=== PATIENT | male | born 1940 | race American Indian/Alaskan Native ===

== ENCOUNTER 2016-07-30 23:19 | Inpatient (IN) | payer MEDICARE ==
[2016-07-30] MEDS ORDERED: ZEMURON IV ONE (23:33)
[2016-07-30] MEDS ORDERED: XYLOCAINE CARDIAC IV ONE (23:33)
[2016-07-30] MEDS ORDERED: AMIDATE IV ONE (23:33)
[2016-07-30] MEDS ORDERED: ARTIFICIAL TEARS OPHTH OINT OU PRN (23:34)
[2016-07-30] MEDS ORDERED: VASELINE LIP THERAPY TP PRN (23:34)
[2016-07-30] MEDS ORDERED: NACL 0.9% 500 ML IV SCH (23:45)
[2016-07-30] MEDS ORDERED: ATIVAN 100 MG in NACL 0.9% 50 ML, VIAFLEX EMPTY CONTAINER 0 ML IV SCH (23:45)
--- NOTE | 2016-07-30 23:54 | Emergency Department Report ---
ED Altered Mental Status HPI - General Chief Complaint: Altered Mental Status Stated Complaint: AMS Time Seen by Provider: 07/30/16 23:31 Source: EMS, old records reviewed (none) Mode of arrival: Stretcher Limitations: Other - History of Present Illness Initial Comments: 76-year-old male with a past medical history diabetes and hypertension presents to the hospital via EMS for altered mental status. Son left for [place] this morning. We spoke to patient on the phone about 1:00 patient complained of not feeling well. Patient returned home tonight found patient lying on the floor, altered, incontinent of urine, and noted abnormal breathing. EMS reports were saturation and 90s and Accu-Chek in the 60s. Patient received 1 amp of D50 prior to arrival. Altered with intermittent periods of apnea, no response to pain, and no spontaneous movement. Decision made to intubate patient upon arrival - Related Data Allergies Allergy/AdvReac Type Severity Reaction Status Date / Time No Known Allergies Allergy Unverified 07/31/16 01:42 ED Review of Systems ROS: Stated complaint: AMS Other details as noted in HPI Comment: Unobtainable due to pts medical conditions (altered) ED Past Medical Hx - Past Medical History Previous Medical History?: Yes Hx Hypertension: Yes Hx Diabetes: Yes - Surgical History Past Surgical History?: No - Social History Smoking Status: Unknown if ever smoked ED Physical Exam - General Limitations: Other - Other Other exam information: General: No limitations Head exam: Atraumatic, normocephalic Eyes exam: Normal appearance, pupils equal reactive to light. Patient is able to look to the right and left spontaneously. nystagmus noted with left gaze ENT: Moist mucous membrane, normal oropharynx Neck exam: Normal inspection, full range of motion Respiratory exam: Clear to auscultation bilateral, no wheezes, rales, crackles Cardiovascular: Normal rate and rhythm Abdomen: Soft, nondistended, and nontender Extremity: Full range of motion normal inspection no deformity Back: Normal Inspection, full range of motion, no tenderness Neurologic: Alert, gcs E 1, V 1, M 4 total 6. Patient does have some intermittent flexion spasm movements of right lower extremity. Psychiatric: normal affect, normal mood Skin: Warm, dry, intact ED Course Vital Signs 07/30/16 07/30/16 23:31 23:34 Pulse Rate 101 H 73 Respiratory 18 Rate Blood Pressure 111/67 149/68 O2 Sat by Pulse 100 95 Oximetry - Reevaluation(s) Reevaluation #1: 07/31/16 01:39 vitals remain stable after intubation - ABG Interpretation Ph: 7.47 PCO2: 37.8 PO2: 291 Bicarbonate: 27 Interpretation: normal Additional Comments: intubated vent settings assist control, tidal volume 500, FiO2 85%, rate 16, PEEP 5 - Intubation Time Out Performed: Yes Sedative: Etomidate Mg Given: 20 Paralytic: Rocuronium Mg Given: 100 Laryngoscope: Payam Size: 3 ET Tube Size: 7.5 Other Airway Intervention: pretreatment with lidocaine for neuro intubation Tube Secured Depth (cm): 23 Tube Secured Location: lips Tube Placement Confirmation: visualized tube passing t, equal breath sounds bilat, no breath sounds over epi, confirmation by capnometr Patient Tolerated Procedure: well Intubation Complications: none - Lab Data Result diagrams: 07/31/16 00:13 07/31/16 00:13 Lab Results 07/30/16 07/30/16 07/31/16 Range/Units 23:40 23:48 00:02 WBC (4.5-11.0) K/mm3 RBC (3.65-5.03) M/mm3 Hgb (11.8-15.2) gm/dl Hct (35.5-45.6) % MCV (84-94) fl MCH (28-32) pg MCHC (32-34) % RDW (13.2-15.2) % Plt Count (140-440) K/mm3 Lymph % (Auto) (13.4-35.0) % [place] % (Auto) (0.0-7.3) % Eos % (Auto) (0.0-4.3) % Baso % (Auto) (0.0-1.8) % Lymph # (1.2-5.4) K/mm3 [place] # (0.0-0.8) K/mm3 Eos # (0.0-0.4) K/mm3 Baso # (0.0-0.1) K/mm3 Seg Neutrophils % (40.0-70.0) % Seg Neutrophils # (1.8-7.7) K/mm3 PT (12.2-14.9) Sec. INR (0.87-1.13) APTT (24.2-36.6) Sec. POC ABG pH (7.35-7.45) POC ABG pCO2 (35-45) POC ABG pO2 (80-105) POC ABG HCO3 POC ABG Total CO2 POC ABG O2 Sat POC ABG Base Excess VBG pH (7.320-7.420) FiO2 % Sodium (137-145) mmol/L Potassium (3.6-5.0) mmol/L Chloride (98-107) mmol/L Carbon Dioxide (22-30) mmol/L Anion Gap mmol/L BUN (9-20) mg/dL Creatinine (0.8-1.5) mg/dL Estimated GFR ml/min BUN/Creatinine Ratio % Glucose (75-100) mg/dL POC Glucose 202 H (70-105) Lactic Acid (0.7-2.0) mmol/L Calcium (8.4-10.2) mg/dL Total Bilirubin (0.1-1.2) mg/dL AST (5-40) units/L ALT (7-56) units/L Alkaline Phosphatase (35-129) units/L Ammonia (25-60) umol/L Total Creatine Kinase (55-170) units/L CK-MB (CK-2) (0.0-4.0) ng/mL CK-MB (CK-2) Rel Index (0-4) Troponin T (0.00-0.029) ng/mL Total Protein (6.3-8.2) g/dL Albumin (3.9-5) g/dL Albumin/Globulin Ratio % Salicylates < 0.3 L (2.8-20.0) mg/dL Acetaminophen (10.0-30.0) ug/mL Blood Type O POSITIVE MARK Antibody Screen Negative 07/31/16 07/31/16 07/31/16 Range/Units 00:02 00:13 00:13 WBC 13.3 H (4.5-11.0) K/mm3 RBC 4.45 (3.65-5.03) M/mm3 Hgb 11.2 L (11.8-15.2) gm/dl Hct 35.7 (35.5-45.6) % MCV 80 L (84-94) fl MCH 25 L (28-32) pg MCHC 31 L (32-34) % RDW 18.6 H (13.2-15.2) % Plt Count 177 (140-440) K/mm3 Lymph % (Auto) 8.7 L (13.4-35.0) % [place] % (Auto) 5.8 (0.0-7.3) % Eos % (Auto) 0.1 (0.0-4.3) % Baso % (Auto) 0.2 (0.0-1.8) % Lymph # 1.2 (1.2-5.4) K/mm3 [place] # 0.8 (0.0-0.8) K/mm3 Eos # 0.0 (0.0-0.4) K/mm3 Baso # 0.0 (0.0-0.1) K/mm3 Seg Neutrophils % 85.2 H (40.0-70.0) % Seg Neutrophils # 11.3 H (1.8-7.7) K/mm3 PT 15.8 H (12.2-14.9) Sec. INR 1.20 H (0.87-1.13) APTT 36.1 (24.2-36.6) Sec. POC ABG pH (7.35-7.45) POC ABG pCO2 (35-45) POC ABG pO2 (80-105) POC ABG HCO3 POC ABG Total CO2 POC ABG O2 Sat POC ABG Base Excess VBG pH (7.320-7.420) FiO2 % Sodium (137-145) mmol/L Potassium (3.6-5.0) mmol/L Chloride (98-107) mmol/L Carbon Dioxide (22-30) mmol/L Anion Gap mmol/L BUN (9-20) mg/dL Creatinine (0.8-1.5) mg/dL Estimated GFR ml/min BUN/Creatinine Ratio % Glucose (75-100) mg/dL POC Glucose (70-105) Lactic Acid (0.7-2.0) mmol/L Calcium (8.4-10.2) mg/dL Total Bilirubin (0.1-1.2) mg/dL AST (5-40) units/L ALT (7-56) units/L Alkaline Phosphatase (35-129) units/L Ammonia (25-60) umol/L Total Creatine Kinase (55-170) units/L CK-MB (CK-2) (0.0-4.0) ng/mL CK-MB (CK-2) Rel Index (0-4) Troponin T (0.00-0.029) ng/mL Total Protein (6.3-8.2) g/dL Albumin (3.9-5) g/dL Albumin/Globulin Ratio % Salicylates (2.8-20.0) mg/dL Acetaminophen < 15.0 (10.0-30.0) ug/mL Blood Type MARK Antibody Screen 07/31/16 07/31/16 07/31/16 Range/Units 00:13 00:13 00:13 WBC (4.5-11.0) K/mm3 RBC (3.65-5.03) M/mm3 Hgb (11.8-15.2) gm/dl Hct (35.5-45.6) % MCV (84-94) fl MCH (28-32) pg MCHC (32-34) % RDW (13.2-15.2) % Plt Count (140-440) K/mm3 Lymph % (Auto) (13.4-35.0) % [place] % (Auto) (0.0-7.3) % Eos % (Auto) (0.0-4.3) % Baso % (Auto) (0.0-1.8) % Lymph # (1.2-5.4) K/mm3 [place] # (0.0-0.8) K/mm3 Eos # (0.0-0.4) K/mm3 Baso # (0.0-0.1) K/mm3 Seg Neutrophils % (40.0-70.0) % Seg Neutrophils # (1.8-7.7) K/mm3 PT (12.2-14.9) Sec. INR (0.87-1.13) APTT (24.2-36.6) Sec. POC ABG pH (7.35-7.45) POC ABG pCO2 (35-45) POC ABG pO2 (80-105) POC ABG HCO3 POC ABG Total CO2 POC ABG O2 Sat POC ABG Base Excess VBG pH (7.320-7.420) FiO2 % Sodium 134 L (137-145) mmol/L Potassium 4.6 (3.6-5.0) mmol/L Chloride 96.7 L (98-107) mmol/L Carbon Dioxide 21 L (22-30) mmol/L Anion Gap 21 mmol/L BUN 19 (9-20) mg/dL Creatinine 0.7 L (0.8-1.5) mg/dL Estimated GFR > 60 ml/min BUN/Creatinine Ratio 27.14 % Glucose 162 H (75-100) mg/dL POC Glucose (70-105) Lactic Acid 1.00 (0.7-2.0) mmol/L Calcium 8.3 L (8.4-10.2) mg/dL Total Bilirubin 0.40 (0.1-1.2) mg/dL AST 102 H (5-40) units/L ALT 62 H (7-56) units/L Alkaline Phosphatase 1020 H (35-129) units/L Ammonia 49.0 (25-60) umol/L Total Creatine Kinase 490 H (55-170) units/L CK-MB (CK-2) 4.2 H (0.0-4.0) ng/mL CK-MB (CK-2) Rel Index 0.8 (0-4) Troponin T < 0.010 (0.00-0.029) ng/mL Total Protein 6.9 (6.3-8.2) g/dL Albumin 2.9 L (3.9-5) g/dL Albumin/Globulin Ratio 0.7 % Salicylates (2.8-20.0) mg/dL Acetaminophen (10.0-30.0) ug/mL Blood Type MARK Antibody Screen 07/31/16 07/31/16 Range/Units 00:13 00:13 WBC (4.5-11.0) K/mm3 RBC (3.65-5.03) M/mm3 Hgb (11.8-15.2) gm/dl Hct (35.5-45.6) % MCV (84-94) fl MCH (28-32) pg MCHC (32-34) % RDW (13.2-15.2) % Plt Count (140-440) K/mm3 Lymph % (Auto) (13.4-35.0) % [place] % (Auto) (0.0-7.3) % Eos % (Auto) (0.0-4.3) % Baso % (Auto) (0.0-1.8) % Lymph # (1.2-5.4) K/mm3 [place] # (0.0-0.8) K/mm3 Eos # (0.0-0.4) K/mm3 Baso # (0.0-0.1) K/mm3 Seg Neutrophils % (40.0-70.0) % Seg Neutrophils # (1.8-7.7) K/mm3 PT (12.2-14.9) Sec. INR (0.87-1.13) APTT (24.2-36.6) Sec. POC ABG pH 7.471 H (7.35-7.45) POC ABG pCO2 37.8 (35-45) POC ABG pO2 291 H (80-105) POC ABG HCO3 27.6 POC ABG Total CO2 29 POC ABG O2 Sat 100 POC ABG Base Excess 4 VBG pH 7.447 H (7.320-7.420) FiO2 85 % Sodium (137-145) mmol/L Potassium (3.6-5.0) mmol/L Chloride (98-107) mmol/L Carbon Dioxide (22-30) mmol/L Anion Gap mmol/L BUN (9-20) mg/dL Creatinine (0.8-1.5) mg/dL Estimated GFR ml/min BUN/Creatinine Ratio % Glucose (75-100) mg/dL POC Glucose (70-105) Lactic Acid (0.7-2.0) mmol/L Calcium (8.4-10.2) mg/dL Total Bilirubin (0.1-1.2) mg/dL AST (5-40) units/L ALT (7-56) units/L Alkaline Phosphatase (35-129) units/L Ammonia (25-60) umol/L Total Creatine Kinase (55-170) units/L CK-MB (CK-2) (0.0-4.0) ng/mL CK-MB (CK-2) Rel Index (0-4) Troponin T (0.00-0.029) ng/mL Total Protein (6.3-8.2) g/dL Albumin (3.9-5) g/dL Albumin/Globulin Ratio % Salicylates (2.8-20.0) mg/dL Acetaminophen (10.0-30.0) ug/mL Blood Type MARK Antibody Screen - EKG Data -: EKG Interpreted by Me (nsr rate 69, Pac's) When compared to previous EKG there are: previous EKG unavailable - Radiology Data Radiology results: report reviewed, image reviewed (chest x-ray: Appropriate ET tube position no infiltrate) CT head: No acute findings. Chronic sinus disease CT cervical spine: Lucency in fragmentation in the right C3 transverse process that appears to be old. No evidence of acute injury - Medical Decision Making Because the patient's alteration mental status is unknown. Patient had mild hypoglycemia but no improvement in mental status with increase in glucose. It is possible the patient had a seizure and presented post ictal given incontinence however, no previous reported history of seizures. Patient intubated for airway protection given significant alteration in mental status. Patient requires hospitalization for further treatment. Labs reveal significant elevated alkaline phosphatase, mild LFT elevation, evidence of a mild lab abnormalities. Delay in obtaining urine since patient apparently has resistance prostate with catheterization. - Differential Diagnosis seizure, ICH, mi, encephalopathy, drug overdose, stroke Critical Care Time: No Critical care attestation.: If time is entered above; I have spent that time in minutes in the direct care of this critically ill patient, excluding procedure time. ED Disposition Clinical Impression: Altered mental status, Endotracheally intubated, Elevated alkaline phosphatase level, Elevated LFTs, Hypoglycemia Disposition: OP ADMIT IP TO THIS HOSP Is pt being admited?: Yes Condition: Stable Time of Disposition: 01:42 (Dr Feng/hosp)
[2016-07-31 00:20] LABS: ISTAT Base Excess 4; ISTAT HCO3 27.6; ISTAT PCO2 37.8 (35-45); ISTAT PH 7.471 (7.35-7.45); ISTAT PO2 291 (80-105); ISTAT SO2 100; ISTAT TCO2 29
[2016-07-31] MEDS ORDERED: XYLOCAINE CARDIAC IV ONE (00:24)
[2016-07-31] MEDS ORDERED: AMIDATE IV ONE (00:24)
[2016-07-31] MEDS ORDERED: ZEMURON IV ONE (00:24)
[2016-07-31 00:38] LABS: Basophils % (Auto) 0.2 % (0.0-1.8); Eosinophils % (Auto) 0.1 % (0.0-4.3); Hematocrit 35.7 % (35.5-45.6); Hemoglobin 11.2 gm/dl (11.8-15.2); Mean Corpuscular HGB Conc 31 % (32-34); Mean Corpuscular Volume 80 fl (84-94); Platelet Count 177 K/mm3 (140-440); Red Blood Count 4.45 M/mm3 (3.65-5.03); Red Cell Distribution Width 18.6 % (13.2-15.2); White Blood Count 13.3 K/mm3 (4.5-11.0)
[2016-07-31 00:40] LABS: Mean Corpuscular Hemoglobin 25 pg (28-32)
[2016-07-31 00:48] LABS: Creatine Kinase MB 4.2 ng/mL (0.0-4.0)
[2016-07-31 00:50] LABS: Alanine Aminotransferase 62 units/L (7-56); Albumin 2.9 g/dL (3.9-5); Albumin/Globulin Ratio 0.7 %; Alkaline Phosphatase 1020 units/L (35-129); Anion Gap 21 mmol/L; BUN/Creatinine Ratio 27.14; Blood Urea Nitrogen 19 mg/dL (9-20); Calcium 8.3 mg/dL (8.4-10.2); Carbon Dioxide 21 mmol/L (22-30); Chloride 96.7 mmol/L (98-107); Creatine Kinase 490 units/L (55-170); Glucose 162 mg/dL (75-100); Potassium 4.6 mmol/L (3.6-5.0); Sodium 134 mmol/L (137-145); Total Protein 6.9 g/dL (6.3-8.2)
--- NOTE | 2016-07-31 01:24 | Cat Scan Report ---
FINAL REPORT EXAM: CT CERVICAL SPINE WO CON HISTORY: ams, fall TECHNIQUE: Helical axial CT imaging of the cervical spine. Images are reconstructed in the sagittal and coronal planes. PRIORS: None. FINDINGS: There is lucency and fragmentation of the right C3 transverse process that appears to have corticated, sclerotic margins and probably represents an old injury. The vertebral bodies are normal in height. There is no evidence of fracture or subluxation. There is multilevel degenerative disc and facet disease. There is atherosclerotic calcification in the carotid bulbs. The paraspinous soft tissues are unremarkable. There is an endotracheal tube in place. IMPRESSION: Lucency in fragmentation of the right C3 transverse process that appears to be old. Clinical correlation required. No evidence of acute injury.
--- NOTE | 2016-07-31 01:27 | Cat Scan Report ---
FINAL REPORT EXAM: CT HEAD/BRAIN WO CON HISTORY: ams TECHNIQUE: CT was performed from the foramen magnum through the vertex in the axial plane without the use of intravenous contrast. PRIORS: None. FINDINGS: The king/white matter attenuation pattern is normal. There is no mass lesion or mass effect. There are no abnormal extra-axial fluid collections. There is no evidence of acute intracranial hemorrhage or infarct. The ventricles are of normal size and configuration. The skull and orbits are unremarkable. There is mucosal thickening in the left frontal sinus, bilateral maxillary sinuses, right sphenoid sinus and ethmoid air cells. IMPRESSION: No evidence of acute intracranial hemorrhage or infarct Chronic sinus disease
[2016-07-31 01:28] LABS: INR 1.2 (0.87-1.13)
[2016-07-31 01:29] LABS: Partial Thromboplastin Time 36.1 Sec. (24.2-36.6)
[2016-07-31] MEDS ORDERED: ZOFRAN IV PRN (02:27)
[2016-07-31] MEDS ORDERED: TYLENOL PO PRN (02:27)
[2016-07-31] MEDS ORDERED: TYLENOL PR PRN (02:27)
--- NOTE | 2016-07-31 02:30 | History and Physical Report ---
History of Present Illness Date of examination: 07/31/16 History of present illness: 76-year-old man with a history of hypertension, diabetes, hyperlipidemia, BPH, ? CHF (based on medications) was brought to the emergency room because son found him on the floor decreased responsiveness. Son stated that the patient went to [place] this morning and left because he wasn't feeling well. At 1 PM he he was at home, the patient did not elaborate, what exactly was bothering him. Patient was intubated in the emergency room. Review of system is unobtainable PAST SURGICAL HISTORY: None SOCIAL HISTORY: Denies alcohol, tobacco, drugs FAMILY HISTORY: Hypertension Medications and Allergies Allergies Allergy/AdvReac Type Severity Reaction Status Date / Time No Known Allergies Allergy Verified 07/31/16 02:37 Home Medications Medication Instructions Recorded Confirmed Last Taken Type Aspirin [Aspirin BABY CHEW TAB] 1 tab PO DAILY 07/31/16 07/31/16 Unknown History Carvedilol [Coreg] 25 mg PO BID 07/31/16 07/31/16 Unknown History Hydrochlorothiazide [HCTZ] 25 mg PO QDAY 07/31/16 07/31/16 Unknown History Lisinopril [Zestril TAB] 1 tab PO DAILY 07/31/16 07/31/16 Unknown History Pravastatin (Nf) [Pravachol] 40 mg PO QHS 07/31/16 07/31/16 Unknown History Tamsulosin [Flomax] 1 cap PO DAILY 07/31/16 07/31/16 Unknown History amLODIPine [Norvasc] 10 mg PO DAILY 07/31/16 07/31/16 Unknown History hydrALAZINE [Apresoline] 25 mg PO Q8HR 07/31/16 07/31/16 Unknown History Active Meds: Active Medications Hydrophilic Ointment (Vaseline Lip Therapy) 1 applic TP Q2HR PRN PRN Reason: Dry Lips Lorazepam 100 mg/ Sodium Chloride/ Miscellaneous Information 100 mls @ 1 mls/ hr IV TITR SANIA; 1 MG/HR PRN Reason: Protocol Last Admin: 07/31/16 00:14 Dose: 1 mg/hr, 1 mls/hr Multi-Ingred Cream/Lotion/Oil/Oint (Artificial Tears Ophth Oint) 1 applic OU Q4HR PRN PRN Reason: Dry Eye(s) Sodium Chloride (Nacl 0.9% 500 Ml) 1 ml IV DIRECT SANIA Exam - Physical Exam Narrative exam: Gen. appearance: Patient lying in bed, no apparent distress, intubated HEENT: Normocephalic, atraumatic, pupils equally round , fixed, dilated and slightly reactive to light, unable to do extraocular movement , and no sclericterus,. No JVD or thyromegaly or nodule,neck supple, no carotid bruit , mucous membranes moist, no exudate or erythema Heart: S1, S2, regular rate and rhythm Lungs: Clear to auscultation bilaterally, breathing comfortable Abdomen: Positive bowel sounds,soft, nondistended, no organomegaly Extremity: No edema, cyanosis, clubbing Skin: No rash, nodules, warm, dry Neuro: sedated - Constitutional Vitals: Temp Pulse Resp BP Pulse Ox 76 16 150/69 100 07/31/16 01:45 07/31/16 01:45 07/31/16 01:45 07/31/16 01:45 Results - Labs CBC & Chem 7: 07/31/16 00:13 07/31/16 00:13 Labs: Abnormal lab results 07/30/16 07/31/16 07/31/16 Range/Units 23:48 00:02 00:13 WBC 13.3 H (4.5-11.0) K/mm3 Hgb 11.2 L (11.8-15.2) gm/dl MCV 80 L (84-94) fl MCH 25 L (28-32) pg MCHC 31 L (32-34) % RDW 18.6 H (13.2-15.2) % Lymph % (Auto) 8.7 L (13.4-35.0) % Seg Neutrophils % 85.2 H (40.0-70.0) % Seg Neutrophils # 11.3 H (1.8-7.7) K/mm3 PT (12.2-14.9) Sec. INR (0.87-1.13) POC ABG pH (7.35-7.45) POC ABG pO2 (80-105) VBG pH (7.320-7.420) Sodium (137-145) mmol/L Chloride (98-107) mmol/L Carbon Dioxide (22-30) mmol/L Creatinine (0.8-1.5) mg/dL Glucose (75-100) mg/dL POC Glucose 202 H (70-105) Calcium (8.4-10.2) mg/dL AST (5-40) units/L ALT (7-56) units/L Alkaline Phosphatase (35-129) units/L Total Creatine Kinase (55-170) units/L CK-MB (CK-2) (0.0-4.0) ng/mL Albumin (3.9-5) g/dL Salicylates < 0.3 L (2.8-20.0) mg/dL 07/31/16 07/31/16 07/31/16 Range/Units 00:13 00:13 00:13 WBC (4.5-11.0) K/mm3 Hgb (11.8-15.2) gm/dl MCV (84-94) fl MCH (28-32) pg MCHC (32-34) % RDW (13.2-15.2) % Lymph % (Auto) (13.4-35.0) % Seg Neutrophils % (40.0-70.0) % Seg Neutrophils # (1.8-7.7) K/mm3 PT 15.8 H (12.2-14.9) Sec. INR 1.20 H (0.87-1.13) POC ABG pH (7.35-7.45) POC ABG pO2 (80-105) VBG pH 7.447 H (7.320-7.420) Sodium 134 L (137-145) mmol/L Chloride 96.7 L (98-107) mmol/L Carbon Dioxide 21 L (22-30) mmol/L Creatinine 0.7 L (0.8-1.5) mg/dL Glucose 162 H (75-100) mg/dL POC Glucose (70-105) Calcium 8.3 L (8.4-10.2) mg/dL AST 102 H (5-40) units/L ALT 62 H (7-56) units/L Alkaline Phosphatase 1020 H (35-129) units/L Total Creatine Kinase 490 H (55-170) units/L CK-MB (CK-2) 4.2 H (0.0-4.0) ng/mL Albumin 2.9 L (3.9-5) g/dL Salicylates (2.8-20.0) mg/dL 07/31/16 Range/Units 00:13 WBC (4.5-11.0) K/mm3 Hgb (11.8-15.2) gm/dl MCV (84-94) fl MCH (28-32) pg MCHC (32-34) % RDW (13.2-15.2) % Lymph % (Auto) (13.4-35.0) % Seg Neutrophils % (40.0-70.0) % Seg Neutrophils # (1.8-7.7) K/mm3 PT (12.2-14.9) Sec. INR (0.87-1.13) POC ABG pH 7.471 H (7.35-7.45) POC ABG pO2 291 H (80-105) VBG pH (7.320-7.420) Sodium (137-145) mmol/L Chloride (98-107) mmol/L Carbon Dioxide (22-30) mmol/L Creatinine (0.8-1.5) mg/dL Glucose (75-100) mg/dL POC Glucose (70-105) Calcium (8.4-10.2) mg/dL AST (5-40) units/L ALT (7-56) units/L Alkaline Phosphatase (35-129) units/L Total Creatine Kinase (55-170) units/L CK-MB (CK-2) (0.0-4.0) ng/mL Albumin (3.9-5) g/dL Salicylates (2.8-20.0) mg/dL - Imaging and Cardiology EKG: image reviewed Chest x-ray: image reviewed Assessment and Plan Respiratory failure Altered mental status Elevated LFTs Hypertension Diabetes Hyperlipidemia PPH Admit to medicine Start IV fluid, check cardiac enzymes, d-dimer Obtain ultrasound of the abdomen, consult critical care Check fingersticks initiate insulin sliding scale Start DVT prophylaxis Prognosis guarded
[2016-07-31] MEDS ORDERED: D50W (25GM) IV PRN (02:52)
--- NOTE | 2016-07-31 03:30 | Ultrasound Report ---
FINAL REPORT EXAM: US ABDOMEN COMPLETE HISTORY: incr lft COMPARISON: None available. TECHNIQUE: Several real-time grayscale and color Doppler images were obtained. FINDINGS: There is increased echogenicity of the liver compatible with fatty infiltration. No biliary dilatation. The common bile duct measures 4 millimeters. Spleen measures 10.5 centimeters in length within normal limits. Visualized portions of the pancreas are unremarkable. Small shadowing gallstones at the dependent portion the gallbladder. Gallbladder wall thickness 3 millimeters within normal limits. Visualize urinary bladder is unremarkable. Right kidney measures 9.1 centimeters in length. Left kidney measures 9.5 centimeter length. No hydronephrosis. Benign right renal cyst measuring 1.6 centimeters. IMPRESSION: Cholelithiasis without secondary signs of acute inflammation or biliary dilatation. Mild diffuse fatty infiltration of the liver. Benign right renal cyst measuring 1.6 centimeters. No hydronephrosis bilaterally.
[2016-07-31] MEDS ORDERED: NACL 0.9% 1000 ML 1,000 ML IV ONE (07:01)
--- NOTE | 2016-07-31 07:24 | Admit Criteria Form ---
Admission Criteria Documentation: MENTAL STATUS CHANGE Clinical Indications for Inpatient Care (Place 'X' for any and all applicable criteria): Ongoing inpatient care may be needed for 1 or more of the following(1)(2)(3)(5)( 6): [X]I. Suspected serious etiology (eg, medical disorder, REPORT MANAGER event) of altered mental status [ ]II. Danger to self or others not manageable at lower level of care [ ]III. Grave disability (eg, inability to perform self care necessary at lower level of care) [ ]IV. Agitation or inappropriate behavior interfering with care for primary condition (eg, attempting to discontinue lines or drains prematurely, unable to cooperate with respiratory care) [ ]V. Delirium [A] [D][E] as described by 1 or more of the following(26): [ ]a) Delirium due to alcohol or sedative [F] withdrawal [ ]b) Delirium of uncertain etiology that has not responded to appropriate empiric treatment [ ]c) Delirium that prevents performance of a life-sustaining function (eg, feeding or hydrating oneself) [ ]. General contraindications and/or Inappropriate clinical situations for Observational Care in patients with Mental Status Change, when ANY ONE of the following is required: [ ]a) Prediction of prolongation of LOS based on ANY ONE of the following may be considered as a contraindication for observational care 2, 3, 4, 5, 6, 7, 8, 9, 10, 11 [ ]i) Age > 65 yrs. [ ]ii) Patient arriving by ambulance [ ]iii) Patient with high acuity [ ]iv) Patient requiring vital sign monitoring [ ]v) Patient on IV medication [ ]b) Systolic blood pressures greater than or equal to 180mmHg 3, 12 [ ]c) Patient with altered mental status including delirium and other alteration of consciousness, (3) [ ]d) Patient whose discharge disposition will be to a [facility] home or rehabilitation home should not be managed in Emergency Department Observation Unit. CMS rule requires 3 days hospital stay before such placement.3,13 [ ]e) Patient with failure to thrive due to broad array of etiologies 3,16,17 [ ]f) Inability to ambulate 3,14 Extended stay beyond goal length of stay for the primary condition may be needed until ALL of the following are present(3)(5): [ ]a) Underlying medical etiology of mental status change is absent, or has been established and adequately treated [ ]b) Danger to self or others is absent or manageable at lower level of care. [ ]c) Behavior crisis management, including physical or chemical restraints, is not required or available at lower level of car [ ]d) Substance or alcohol withdrawal is absent or manageable at lower level of care. [ ]e) Behavioral symptoms (eg, agitation, somnolence, inappropriate behavior) are absent, or are manageable at lower level of care. The original [facility] content created by [facility] [employer] has been revised. The portions of the content which have been revised are identified through the use of italic text or in bold, and [facility] has neither reviewed nor approved the modified material. All other unmodified content is copyright [facility] [employer]. Please see references footnoted in the original [facility] edition 2016 Admission Criteria Met: Yes
--- NOTE | 2016-07-31 08:16 | XRay Report ---
AP CHEST :07/30/16 23:19:00 CLINICAL: Intubated.Altered mental status. COMPARISON:02/13/18 FINDINGS: The endotracheal tube is in satisfactory position. No other tubes or lines. Normal heart and pulmonary vessels. Mild left basal subsegmental atelectasis. Lungs are otherwise clear. No pneumothorax. IMPRESSION: Satisfactory position of the endotracheal tube.No congestive heart failure or pneumonia.
--- NOTE | 2016-07-31 08:17 | XRay Report ---
AP CHEST :07/31/16 08:04 CLINICAL: Intubated.Follow up respiratory failure. COMPARISON:07/30/16 FINDINGS: The endotracheal tube is in satisfactory position. A nasogastric tube has been inserted and the tip is below the diaphragm. Bibasal subsegmental atelectasis. The lungs are otherwise clear. Normal heart and pulmonary vessels. No pneumothorax. IMPRESSION: Bibasal subsegmental atelectasis.No congestive heart failure or pneumonia.
[2016-07-31 09:37] LABS: Creatine Kinase MB 5.9 ng/mL (0.0-4.0)
[2016-07-31] MEDS ORDERED: NACL 0.9% 500 ML 500 ML IV ONE (09:45)
[2016-07-31] MEDS: NACL 0.45% 1000 ML 1,000 ML IV SCH (10:00)
[2016-07-31] MEDS ORDERED: LOVENOX SUB-Q SCH (10:00)
[2016-07-31] MEDS: LOVENOX SUB-Q SCH (11:00)
[2016-07-31] MEDS ORDERED: SODIUM BICARBONATE FEEDTUBE PRN (11:17)
[2016-07-31] MEDS ORDERED: SIMPLE SYRUP FEEDTUBE PRN ×2 (11:17)
[2016-07-31] MEDS ORDERED: PANCREAZE DR 10,500 UNIT FEEDTUBE PRN (11:17)
--- NOTE | 2016-07-31 12:14 | Consultation ---
History of Present Illness Consult date: 07/31/16 History of present illness: Called to evaluate case of a 76-year-old -N[place]ales[place] male, be due to the ICU in acute respiratory failure. The patient. Family is at the bedside so history is obtained after conversation with his son and chart review. Reportedly, the patient had gone to [place] yesterday and after that he went home. He failed to answer his son calls and he went to check on him. The patient was found face down on his bed unresponsive and EMS were called. He was rushed to the ER and after initial assessment, he was intubated to protect airway and assist with resuscitation. He has history of diabetes and his initial blood sugar was 60. He was given D50 W and was later admitted to the ICU. Called to evaluate. No recent history of respiratory tract infection, stroke, chest pain episodes. No recent history of fever or chills or influenza-like illness. Apparently no head trauma. Initial scans on record as noted below Past History Past Medical History: diabetes Medications and Allergies Allergies Allergy/AdvReac Type Severity Reaction Status Date / Time No Known Allergies Allergy Verified 07/31/16 02:37 Home Medications Medication Instructions Recorded Confirmed Last Taken Type Aspirin [Aspirin BABY CHEW TAB] 1 tab PO DAILY 07/31/16 07/31/16 Unknown History Carvedilol [Coreg] 25 mg PO BID 07/31/16 07/31/16 Unknown History Hydrochlorothiazide [HCTZ] 25 mg PO QDAY 07/31/16 07/31/16 Unknown History Lisinopril [Zestril TAB] 1 tab PO DAILY 07/31/16 07/31/16 Unknown History Pravastatin (Nf) [Pravachol] 40 mg PO QHS 07/31/16 07/31/16 Unknown History Tamsulosin [Flomax] 1 cap PO DAILY 07/31/16 07/31/16 Unknown History amLODIPine [Norvasc] 10 mg PO DAILY 07/31/16 07/31/16 Unknown History hydrALAZINE [Apresoline] 25 mg PO Q8HR 07/31/16 07/31/16 Unknown History Active Meds: Active Medications Acetaminophen (Tylenol) 650 mg PO Q4H PRN PRN Reason: Pain MILD(1-3)/Fever >100.5/MARTINEZ Acetaminophen (Tylenol) 650 mg PA Q4H PRN PRN Reason: Pain MILD(1-3)/Fever >100.5/MARTINEZ Lipase/Protease/Amylase (Pancreaze Dr 10,500 Unit) 1 each FEEDTUBE PRN PRN PRN Reason: For Clogged Feeding Tube Dextrose (D50w (25gm)) 50 ml IV PRN PRN PRN Reason: Hypoglycemia Enoxaparin Sodium (Lovenox) 40 mg SUB-Q QDAY@1000 SANIA Last Admin: 07/31/16 11:00 Dose: 40 mg Hydrophilic Ointment (Vaseline Lip Therapy) 1 applic TP Q2HR PRN PRN Reason: Dry Lips Lorazepam 100 mg/ Sodium Chloride/ Miscellaneous Information 100 mls @ 1 mls/ hr IV TITR SANIA; 1 MG/HR PRN Reason: Protocol Last Titration: 07/31/16 07:00 Dose: 0 mg/hr, 0 mls/hr Sodium Chloride (Nacl 0.45% 1000 Ml) 1,000 mls @ 75 mls/hr IV DIRECT SANIA Multi-Ingred Cream/Lotion/Oil/Oint (Artificial Tears Ophth Oint) 1 applic OU Q4HR PRN PRN Reason: Dry Eye(s) Ondansetron HCl (Zofran) 4 mg IV Q8H PRN PRN Reason: N/V unrelieved by Reglan Simple Syrup (Simple Syrup) 15 ml FEEDTUBE PRN PRN PRN Reason: Hypoglycemia Simple Syrup (Simple Syrup) 30 ml FEEDTUBE PRN PRN PRN Reason: Hypoglycemia Sodium Bicarbonate (Sodium Bicarbonate) 325 mg FEEDTUBE PRN PRN PRN Reason: For Clogged Feeding Tube Sodium Chloride (Nacl 0.9% 500 Ml) 1 ml IV DIRECT SANIA Review of Systems ROS unobtainable: due to endotracheal tube Physical Examination Vital signs: Vital Signs Pulse Ox 90 07/30/16 23:14 General appearance: no acute distress, comatose, other (intubated) Eyes: other (pupils are equal, very slowly reactive) ENT: other (he continued position at 24) Neck: supple, no JVD Ascultation: Bilateral: clear, diminished breath sounds Gastrointestinal: normoactive bowel sounds, non-distended Integumentary: normal Extremities: no cyanosis, no edema other (Limited due to intubation and recent medications. Appears to move right upper extremity slightly open pain stimulation) Results - Laboratory Findings CBC and BMP: 07/31/16 00:13 07/31/16 00:13 ABG POC ABG pH 7.471 (7.35-7.45) H 07/31/16 00:13 POC ABG pCO2 37.8 (35-45) 07/31/16 00:13 POC ABG pO2 291 (80-105) H 07/31/16 00:13 POC ABG HCO3 27.6 07/31/16 00:13 POC ABG Total CO2 29 07/31/16 00:13 POC ABG O2 Sat 100 07/31/16 00:13 PT/INR, D-dimer PT 15.8 Sec. (12.2-14.9) H 07/31/16 00:13 INR 1.20 (0.87-1.13) H 07/31/16 00:13 Abnormal lab findings: Abnormal Labs 07/31/16 08:39 Total Creatine Kinase 865 H CK-MB (CK-2) 5.9 H - Diagnostic Findings Chest x-ray: report reviewed Additional studies: C-spine and brain CT scan without contrast reports reviewed Assessment and Plan Acute respiratory failure. Shock. Noted to be hypotensive during rounds. Metabolic encephalopathy. Possibly related to blood sugar control event. Hypoxemic encephalopathy cannot be excluded at this point. History diabetes Obesity Recommendations I ordered immediate bolus of normal saline 500 mL Monitor blood pressure, and keep MAP > 60. Monitor intake and output Initiate pressors if no response after the first or second bolus Watch for fever and initiate cultures if noted Continue ventilatory support. Serial monitoring of blood sugar and avoid hypoglycemia. Goal would be initially to maintain between 150s-180 mg per DL Sliding-scale monitoring and give insulin as needed. DVT prophylaxis PUD prophylaxis Discussed with patient's son in detail. I also recommend a neurology consult. Discussed with nurse and RN to notify me if no improvement of blood pressure Critical care time was 40 minutes of [id number] evaluation and coordination of care.
--- NOTE | 2016-07-31 23:31 | Event Note ---
Date: 07/31/16 Patient evaluated Abd u/s-Cholelithiasis without acute inflammation
[2016-08-01 06:04] LABS: ISTAT Base Excess -2; ISTAT HCO3 22.6; ISTAT PCO2 33.4 (35-45); ISTAT PH 7.437 (7.35-7.45); ISTAT PO2 66 (80-105); ISTAT SO2 94; ISTAT TCO2 24
--- NOTE | 2016-08-01 07:59 | XRay Report ---
AP CHEST: HISTORY: Followup respiratory failure The endotracheal tube terminates within 1 cm of the eliceo on today's exam. It has been advanced 2-3 cm since yesterday's exam. Please correlate with the image and consider retraction. Partial atelectasis or infiltrate at the right lung base is stable. The remainder of the lungs are clear. No pleural effusion or pneumothorax. Heart size remains within normal limits. A nasogastric tube is in place. IMPRESSION: Please check the endotracheal tube. Otherwise, no change in the atelectasis/infiltrate at the right lung base.
[2016-08-01 08:33] LABS: Hematocrit 34.9 % (35.5-45.6); Hemoglobin 10.7 gm/dl (11.8-15.2); Mean Corpuscular HGB Conc 31 % (32-34); Mean Corpuscular Volume 82 fl (84-94); Red Blood Count 4.23 M/mm3 (3.65-5.03); Red Cell Distribution Width 19.1 % (13.2-15.2); White Blood Count 14.8 K/mm3 (4.5-11.0)
[2016-08-01 08:38] LABS: Mean Corpuscular Hemoglobin 25 pg (28-32)
[2016-08-01 08:40] LABS: Anion Gap 21 mmol/L; BUN/Creatinine Ratio 26.36; Blood Urea Nitrogen 29 mg/dL (9-20); Calcium 7.6 mg/dL (8.4-10.2); Carbon Dioxide 22 mmol/L (22-30); Chloride 100.8 mmol/L (98-107); Glucose 233 mg/dL (75-100); Potassium 4.7 mmol/L (3.6-5.0); Sodium 139 mmol/L (137-145)
[2016-08-01 09:25] LABS: Anisocytosis 1+; Basophils % (Manual) 0 % (0.0-1.8); Blastocytes % (Manual) 0 %; Hypochromasia 1+
[2016-08-01 09:26] LABS: Diff Status Complete; Platelet Count 172 K/mm3 (140-440); Platelet Estimate Consistent w Auto; Polychromasia Few
--- NOTE | 2016-08-01 10:18 | Progress Note ---
Assessment and Plan 76-year-old man with a history of hypertension, diabetes, hyperlipidemia, BPH, was brought to the emergency room because son found him on the floor with unresponsiveness. Patient was intubated in the emergency room. Acute Respiratory failure - on vent, pulmonary following Altered mental status/Acute encephalopathy - CT head was unremarkable on admission - neuro consult, EEG Elevated LFTs - Obtained ultrasound of the abdomen - US showed cholelithiasis without cholecystitis Hypertension - cont monitor, provide Bp meds with TF Diabetes - SSI Hyperlipidemia - hold statin for elevated LFT BPH - monitor urine output SIRS - pt has elevated white count and tachycardia - will start zosyn and obtain blood cx, cxr and UA Prognosis guarded Subjective Date of service: 08/01/16 Interval history: Pt seen and examined Discussed plan of care with pt,s son at bedside Pt intubated without ant sedation Objective - Constitutional Vitals: Vital Signs - 12hr 07/31/16 07/31/16 07/31/16 22:19 22:21 22:31 Temperature Pulse Rate 105 H 98 H 105 H Pulse Rate [ From Monitor] Respiratory 16 17 16 Rate Blood Pressure 129/61 129/61 129/61 O2 Sat by Pulse 95 95 94 Oximetry 07/31/16 07/31/16 07/31/16 22:41 22:51 23:00 Temperature Pulse Rate 108 H 105 H 104 H Pulse Rate [ From Monitor] Respiratory 16 16 16 Rate Blood Pressure 122/61 122/61 92/56 O2 Sat by Pulse 95 96 94 Oximetry 07/31/16 07/31/16 07/31/16 23:01 23:11 23:21 Temperature Pulse Rate 93 H 100 H 101 H Pulse Rate [ From Monitor] Respiratory 16 16 16 Rate Blood Pressure 102/43 102/43 102/43 O2 Sat by Pulse 96 96 96 Oximetry 07/31/16 07/31/16 07/31/16 23:30 23:41 23:51 Temperature Pulse Rate 94 H 98 H 99 H Pulse Rate [ From Monitor] Respiratory 16 16 16 Rate Blood Pressure 100/43 100/43 100/43 O2 Sat by Pulse 96 95 95 Oximetry 08/01/16 08/01/16 08/01/16 00:00 00:11 00:21 Temperature 100.2 F H Pulse Rate 96 H 91 H 97 H Pulse Rate [ 80 From Monitor] Respiratory 16 16 16 Rate Blood Pressure 107/55 107/55 107/55 O2 Sat by Pulse 95 96 95 Oximetry 08/01/16 08/01/16 08/01/16 00:30 00:41 00:51 Temperature Pulse Rate 90 97 H 124 H Pulse Rate [ From Monitor] Respiratory 16 16 17 Rate Blood Pressure 114/58 114/58 114/58 O2 Sat by Pulse 95 95 95 Oximetry 08/01/16 08/01/16 08/01/16 01:00 01:11 01:21 Temperature Pulse Rate 135 H 119 H 116 H Pulse Rate [ From Monitor] Respiratory 18 13 19 Rate Blood Pressure 127/61 127/61 127/61 O2 Sat by Pulse 93 93 93 Oximetry 08/01/16 08/01/16 08/01/16 01:30 01:41 01:51 Temperature Pulse Rate 129 H 119 H Pulse Rate [ From Monitor] Respiratory 20 20 Rate Blood Pressure 117/52 117/52 117/52 O2 Sat by Pulse 93 94 95 Oximetry 08/01/16 08/01/16 08/01/16 02:00 02:11 02:21 Temperature Pulse Rate 113 H 115 H 121 H Pulse Rate [ From Monitor] Respiratory 20 19 Rate Blood Pressure 119/64 119/64 119/64 O2 Sat by Pulse 98 95 95 Oximetry 08/01/16 08/01/16 08/01/16 02:30 02:41 02:51 Temperature Pulse Rate 109 H 110 H 108 H Pulse Rate [ From Monitor] Respiratory 19 18 16 Rate Blood Pressure 117/55 117/55 117/55 O2 Sat by Pulse 96 95 96 Oximetry 08/01/16 08/01/16 08/01/16 03:00 03:11 03:21 Temperature Pulse Rate 103 H 114 H 120 H Pulse Rate [ From Monitor] Respiratory 16 17 Rate Blood Pressure 103/51 103/51 103/51 O2 Sat by Pulse 97 96 94 Oximetry 08/01/16 08/01/16 08/01/16 03:30 03:41 03:51 Temperature Pulse Rate 102 H 109 H 107 H Pulse Rate [ From Monitor] Respiratory 17 16 16 Rate Blood Pressure 93/51 93/51 93/51 O2 Sat by Pulse 94 95 94 Oximetry 08/01/16 08/01/16 08/01/16 04:00 04:11 04:21 Temperature 100.4 F H Pulse Rate 113 H 107 H 98 H Pulse Rate [ From Monitor] Respiratory 17 17 16 Rate Blood Pressure 92/56 92/56 92/56 O2 Sat by Pulse 93 93 94 Oximetry 08/01/16 08/01/16 08/01/16 04:28 04:30 04:41 Temperature Pulse Rate 99 H 108 H 102 H Pulse Rate [ From Monitor] Respiratory 14 18 Rate Blood Pressure 103/51 109/68 109/68 O2 Sat by Pulse 96 100 91 Oximetry 08/01/16 08/01/16 08/01/16 04:51 05:00 05:11 Temperature Pulse Rate 112 H 123 H 102 H Pulse Rate [ From Monitor] Respiratory 17 18 19 Rate Blood Pressure 109/68 114/57 109/68 O2 Sat by Pulse 91 93 93 Oximetry 08/01/16 08/01/16 08/01/16 05:21 05:30 05:41 Temperature Pulse Rate 111 H 115 H 106 H Pulse Rate [ From Monitor] Respiratory 19 18 20 Rate Blood Pressure 109/68 100/52 100/52 O2 Sat by Pulse 94 95 95 Oximetry 08/01/16 08/01/16 08/01/16 05:51 06:00 06:11 Temperature Pulse Rate 119 H 121 H 110 H Pulse Rate [ From Monitor] Respiratory 20 24 18 Rate Blood Pressure 100/52 99/51 99/51 O2 Sat by Pulse 95 95 96 Oximetry 08/01/16 08/01/16 08/01/16 06:21 06:30 06:41 Temperature Pulse Rate 109 H 115 H 116 H Pulse Rate [ From Monitor] Respiratory 18 17 19 Rate Blood Pressure 99/51 97/50 97/50 O2 Sat by Pulse 96 96 96 Oximetry 08/01/16 08/01/16 08/01/16 06:51 07:00 07:11 Temperature Pulse Rate 119 H 100 H 114 H Pulse Rate [ From Monitor] Respiratory 17 19 17 Rate Blood Pressure 97/50 106/55 106/55 O2 Sat by Pulse 96 96 96 Oximetry 08/01/16 08/01/16 08/01/16 07:21 07:30 07:41 Temperature Pulse Rate 109 H 103 H 106 H Pulse Rate [ From Monitor] Respiratory 19 18 18 Rate Blood Pressure 106/55 102/49 102/49 O2 Sat by Pulse 95 95 95 Oximetry 08/01/16 08/01/16 08/01/16 07:51 08:00 08:11 Temperature 99.7 F H Pulse Rate 106 H 122 H 114 H Pulse Rate [ From Monitor] Respiratory 16 16 17 Rate Blood Pressure 102/49 118/52 118/52 O2 Sat by Pulse 95 94 95 Oximetry 08/01/16 08/01/16 08/01/16 08:20 08:30 08:41 Temperature Pulse Rate 111 H 105 H 104 H Pulse Rate [ From Monitor] Respiratory 22 17 20 Rate Blood Pressure 121/58 118/66 118/66 O2 Sat by Pulse 95 95 95 Oximetry 08/01/16 08/01/16 08:51 09:12 Temperature Pulse Rate 128 H 121 H Pulse Rate [ From Monitor] Respiratory 22 19 Rate Blood Pressure 118/66 128/59 O2 Sat by Pulse 95 96 Oximetry General appearance: Present: no acute distress, well-nourished, other (intubated , unresponsive) - EENT Eyes: no scleral icterus, no conjunctival injection ENT: dentition normal, no thrush Ears: bilateral: normal - Neck Neck: no rigidity, no enlarged thyroid, no masses or JVD - Respiratory Respiratory effort: other (on vent) Respiratory: bilateral: CTA - Breasts Breasts: normal - Cardiovascular Heart Sounds: Present: S1 & S2 (tachycardic). Absent: gallop, rub Extremities: pulses intact, No edema, normal color - Gastrointestinal General gastrointestinal: Present: soft, non-distended, normal bowel sounds - Integumentary Integumentary: clear, dry - Neurologic Neurologic: other (does not follow commend) - Labs CBC & Chem 7: 08/01/16 07:45 08/01/16 07:45 Labs: Abnormal lab results 07/31/16 07/31/16 07/31/16 Range/Units 10:07 12:07 16:19 WBC (4.5-11.0) K/mm3 Hgb (11.8-15.2) gm/dl Hct (35.5-45.6) % MCV (84-94) fl MCH (28-32) pg MCHC (32-34) % RDW (13.2-15.2) % Seg Neuts % (Manual) (40.0-70.0) % Lymphocytes % (Manual) (13.4-35.0) % Seg Neutrophils # Man (1.8-7.7) K/mm3 POC ABG pCO2 (35-45) POC ABG pO2 (80-105) BUN (9-20) mg/dL Glucose (75-100) mg/dL POC Glucose 205 H 188 H 195 H (70-105) Calcium (8.4-10.2) mg/dL 07/31/16 07/31/16 08/01/16 Range/Units 19:58 23:53 04:18 WBC (4.5-11.0) K/mm3 Hgb (11.8-15.2) gm/dl Hct (35.5-45.6) % MCV (84-94) fl MCH (28-32) pg MCHC (32-34) % RDW (13.2-15.2) % Seg Neuts % (Manual) (40.0-70.0) % Lymphocytes % (Manual) (13.4-35.0) % Seg Neutrophils # Man (1.8-7.7) K/mm3 POC ABG pCO2 (35-45) POC ABG pO2 (80-105) BUN (9-20) mg/dL Glucose (75-100) mg/dL POC Glucose 147 H 160 H 225 H (70-105) Calcium (8.4-10.2) mg/dL 08/01/16 08/01/16 08/01/16 Range/Units 04:42 07:45 07:45 WBC 14.8 H (4.5-11.0) K/mm3 Hgb 10.7 L (11.8-15.2) gm/dl Hct 34.9 L (35.5-45.6) % MCV 82 L (84-94) fl MCH 25 L (28-32) pg MCHC 31 L (32-34) % RDW 19.1 H (13.2-15.2) % Seg Neuts % (Manual) 80.0 H (40.0-70.0) % Lymphocytes % (Manual) 12.0 L (13.4-35.0) % Seg Neutrophils # Man 11.8 H (1.8-7.7) K/mm3 POC ABG pCO2 33.4 L (35-45) POC ABG pO2 66 L (80-105) BUN 29 H (9-20) mg/dL Glucose 233 H (75-100) mg/dL POC Glucose (70-105) Calcium 7.6 L (8.4-10.2) mg/dL
[2016-08-01] MEDS: PEPCID IV SCH ×2 (11:00→23:07)
[2016-08-01] MEDS: LOVENOX SUB-Q SCH (11:00)
--- NOTE | 2016-08-01 12:55 | Progress Note ---
Assessment and Plan Acute respiratory failure. Shock. Metabolic encephalopathy. Possibly related to blood sugar control event/ Hypoxemic encephalopathy History diabetes Obesity Recommendations Monitor of sedation neurology evaluation SBT evaluation in am. further changes in vent support, depending on neurological status and progress Discussed with son in detail Critical care time was 31 minutes of [id number] evaluation and coordination of care. Subjective Date of service: 08/01/16 Principal diagnosis: acute respiratory failure Interval history: intubated , off sedation Objective Vital Signs - 12hr 08/01/16 08/01/16 08/01/16 01:00 01:11 01:21 Temperature Pulse Rate 135 H 119 H 116 H Respiratory 18 13 19 Rate Blood Pressure 127/61 127/61 127/61 O2 Sat by Pulse 93 93 93 Oximetry 08/01/16 08/01/16 08/01/16 01:30 01:41 01:51 Temperature Pulse Rate 129 H 119 H Respiratory 20 20 Rate Blood Pressure 117/52 117/52 117/52 O2 Sat by Pulse 93 94 95 Oximetry 08/01/16 08/01/16 08/01/16 02:00 02:11 02:21 Temperature Pulse Rate 113 H 115 H 121 H Respiratory 20 19 Rate Blood Pressure 119/64 119/64 119/64 O2 Sat by Pulse 98 95 95 Oximetry 08/01/16 08/01/16 08/01/16 02:30 02:41 02:51 Temperature Pulse Rate 109 H 110 H 108 H Respiratory 19 18 16 Rate Blood Pressure 117/55 117/55 117/55 O2 Sat by Pulse 96 95 96 Oximetry 08/01/16 08/01/16 08/01/16 03:00 03:11 03:21 Temperature Pulse Rate 103 H 114 H 120 H Respiratory 16 16 17 Rate Blood Pressure 103/51 103/51 103/51 O2 Sat by Pulse 97 96 94 Oximetry 08/01/16 08/01/16 08/01/16 03:30 03:41 03:51 Temperature Pulse Rate 102 H 109 H 107 H Respiratory 17 16 16 Rate Blood Pressure 93/51 93/51 93/51 O2 Sat by Pulse 94 95 94 Oximetry 08/01/16 08/01/16 08/01/16 04:00 04:11 04:21 Temperature 100.4 F H Pulse Rate 113 H 107 H 98 H Respiratory 17 17 16 Rate Blood Pressure 92/56 92/56 92/56 O2 Sat by Pulse 93 93 94 Oximetry 08/01/16 08/01/16 08/01/16 04:28 04:30 04:41 Temperature Pulse Rate 99 H 108 H 102 H Respiratory 14 18 Rate Blood Pressure 103/51 109/68 109/68 O2 Sat by Pulse 96 100 91 Oximetry 08/01/16 08/01/16 08/01/16 04:51 05:00 05:11 Temperature Pulse Rate 112 H 123 H 102 H Respiratory 17 18 19 Rate Blood Pressure 109/68 114/57 109/68 O2 Sat by Pulse 91 93 93 Oximetry 08/01/16 08/01/16 08/01/16 05:21 05:30 05:41 Temperature Pulse Rate 111 H 115 H 106 H Respiratory 19 18 20 Rate Blood Pressure 109/68 100/52 100/52 O2 Sat by Pulse 94 95 95 Oximetry 08/01/16 08/01/16 08/01/16 05:51 06:00 06:11 Temperature Pulse Rate 119 H 121 H 110 H Respiratory 20 24 18 Rate Blood Pressure 100/52 99/51 99/51 O2 Sat by Pulse 95 95 96 Oximetry 08/01/16 08/01/16 08/01/16 06:21 06:30 06:41 Temperature Pulse Rate 109 H 115 H 116 H Respiratory 18 17 19 Rate Blood Pressure 99/51 97/50 97/50 O2 Sat by Pulse 96 96 96 Oximetry 08/01/16 08/01/16 08/01/16 06:51 07:00 07:11 Temperature Pulse Rate 119 H 100 H 114 H Respiratory 17 19 17 Rate Blood Pressure 97/50 106/55 106/55 O2 Sat by Pulse 96 96 96 Oximetry 08/01/16 08/01/16 08/01/16 07:21 07:30 07:41 Temperature Pulse Rate 109 H 103 H 106 H Respiratory 19 18 18 Rate Blood Pressure 106/55 102/49 102/49 O2 Sat by Pulse 95 95 95 Oximetry 08/01/16 08/01/16 08/01/16 07:51 08:00 08:11 Temperature 99.7 F H Pulse Rate 106 H 122 H 114 H Respiratory 16 16 17 Rate Blood Pressure 102/49 118/52 118/52 O2 Sat by Pulse 95 94 95 Oximetry 08/01/16 08/01/16 08/01/16 08:20 08:30 08:41 Temperature Pulse Rate 111 H 105 H 104 H Respiratory 22 17 20 Rate Blood Pressure 121/58 118/66 118/66 O2 Sat by Pulse 95 95 95 Oximetry 08/01/16 08/01/16 08/01/16 08:51 09:01 09:11 Temperature Pulse Rate 128 H 112 H 122 H Respiratory 22 21 20 Rate Blood Pressure 118/66 128/59 118/66 O2 Sat by Pulse 95 96 93 Oximetry 08/01/16 08/01/16 08/01/16 09:12 09:21 09:30 Temperature Pulse Rate 121 H 108 H 111 H Respiratory 19 19 18 Rate Blood Pressure 128/59 118/66 113/59 O2 Sat by Pulse 96 97 96 Oximetry 08/01/16 08/01/16 08/01/16 09:40 09:51 10:00 Temperature Pulse Rate 121 H 110 H 106 H Respiratory 19 17 19 Rate Blood Pressure 113/59 128/59 114/59 O2 Sat by Pulse 97 97 97 Oximetry 08/01/16 08/01/16 08/01/16 10:11 10:21 10:30 Temperature Pulse Rate 124 H 119 H 116 H Respiratory 18 19 16 Rate Blood Pressure 113/59 113/59 108/54 O2 Sat by Pulse 96 96 97 Oximetry 08/01/16 08/01/16 08/01/16 10:41 10:51 11:00 Temperature Pulse Rate 111 H 111 H 105 H Respiratory 18 18 18 Rate Blood Pressure 108/54 108/54 114/60 O2 Sat by Pulse 96 96 96 Oximetry 08/01/16 12:12 Temperature Pulse Rate 123 H Respiratory Rate Blood Pressure 115/52 O2 Sat by Pulse 96 Oximetry Constitutional: no acute distress, comatose, other (intubated) Eyes: other (pupils are equal, very slowly reactive) ENT: other (he continued position at 24) Neck: supple, no JVD Ascultation: Bilateral: clear, diminished breath sounds Gastrointestinal: normoactive bowel sounds, non-distended Integumentary: normal Extremities: no cyanosis, no edema Neurologic: other (Limited due to intubation. very limited right upper extremity slightly open pain stimulation,pupils equal, poor reflexes) CBC and BMP: 08/01/16 07:45 08/01/16 07:45 ABG, PT/INR, D-dimer: ABG POC ABG pH 7.437 (7.35-7.45) 08/01/16 04:42 POC ABG pCO2 33.4 (35-45) L 08/01/16 04:42 POC ABG pO2 66 (80-105) L 08/01/16 04:42 POC ABG HCO3 22.6 08/01/16 04:42 POC ABG Total CO2 24 08/01/16 04:42 POC ABG O2 Sat 94 08/01/16 04:42 PT/INR, D-dimer PT 15.8 Sec. (12.2-14.9) H 07/31/16 00:13 INR 1.20 (0.87-1.13) H 07/31/16 00:13 Abnormal lab findings: Abnormal Labs 07/31/16 07/31/16 07/31/16 08:39 10:07 12:07 WBC Hgb Hct MCV MCH MCHC RDW Seg Neuts % (Manual) Lymphocytes % (Manual) Seg Neutrophils # Man POC ABG pCO2 POC ABG pO2 BUN Glucose POC Glucose 205 H 188 H Calcium Total Creatine Kinase 865 H CK-MB (CK-2) 5.9 H 07/31/16 07/31/16 07/31/16 16:19 19:58 23:53 WBC Hgb Hct MCV MCH MCHC RDW Seg Neuts % (Manual) Lymphocytes % (Manual) Seg Neutrophils # Man POC ABG pCO2 POC ABG pO2 BUN Glucose POC Glucose 195 H 147 H 160 H Calcium Total Creatine Kinase CK-MB (CK-2) 08/01/16 08/01/16 08/01/16 04:18 04:42 07:45 WBC 14.8 H Hgb 10.7 L Hct 34.9 L MCV 82 L MCH 25 L MCHC 31 L RDW 19.1 H Seg Neuts % (Manual) 80.0 H Lymphocytes % (Manual) 12.0 L Seg Neutrophils # Man 11.8 H POC ABG pCO2 33.4 L POC ABG pO2 66 L BUN Glucose POC Glucose 225 H Calcium Total Creatine Kinase CK-MB (CK-2) 08/01/16 08/01/16 08/01/16 07:45 10:09 10:59 WBC Hgb Hct MCV MCH MCHC RDW Seg Neuts % (Manual) Lymphocytes % (Manual) Seg Neutrophils # Man POC ABG pCO2 POC ABG pO2 BUN 29 H Glucose 233 H POC Glucose 266 H 318 H Calcium 7.6 L Total Creatine Kinase CK-MB (CK-2)
[2016-08-01] MEDS: ZOSYN/NS 4.5GM/100ML 4.5 GM/100 ML VIAL IV SCH ×2 (13:57→23:07)
[2016-08-01] MEDS: NACL 0.45% 1000 ML 1,000 ML IV SCH (14:06)
[2016-08-02 04:17] LABS: ISTAT Base Excess -2; ISTAT HCO3 22.2; ISTAT PCO2 31.2 (35-45); ISTAT PO2 71 (80-105); ISTAT SO2 95; ISTAT TCO2 23
[2016-08-02] MEDS: NACL 0.45% 1000 ML 1,000 ML IV SCH ×2 (06:36→20:01)
[2016-08-02] MEDS: ZOSYN/NS 4.5GM/100ML 4.5 GM/100 ML VIAL IV SCH ×3 (06:37→20:05)
--- NOTE | 2016-08-02 07:25 | XRay Report ---
Single view chest: Compared to 07/25 cm 17. History: Followup of respiratory failure. Findings: Normal cardiomediastinal silhouette. Trachea is midline. Tip of endotracheal tube in right mainstem bronchus. Should be withdrawn approximately 3 cm. No consolidation, pneumothorax or pleural effusion. Impression: Endotracheal should be withdrawn approximately 3 cm.
--- NOTE | 2016-08-02 09:04 | Progress Note ---
Assessment and Plan Acute respiratory failure. Currently with adequate bedside oximetry and ABGs. Shock. Controlled,resolved Metabolic encephalopathy. Not improving. Requesting neurology evaluation for further review History diabetes Obesity Recommendations Neurology evaluation Continue current ventilator support Watch for fever. Will reassess for further review, SBT after neurology evaluation today Discussed status with patient's son and family in detail. All questions answered. Critical care time was 31 minutes of [id number] evaluation and coordination of care. Subjective Date of service: 08/02/16 Principal diagnosis: acute respiratory failure Interval history: Off sedation, intubated. No new events overnight. Remains unresponsive Objective Vital Signs - 12hr 08/01/16 08/01/16 08/01/16 22:00 22:50 23:00 Temperature Pulse Rate 118 H 116 H 114 H Respiratory 18 20 Rate Blood Pressure 102/46 97/50 93/50 O2 Sat by Pulse 98 98 98 Oximetry 08/01/16 08/02/16 08/02/16 23:29 00:00 01:00 Temperature 100.7 F H Pulse Rate 115 H 113 H 108 H Respiratory 20 18 19 Rate Blood Pressure 93/50 95/47 85/43 O2 Sat by Pulse 98 92 97 Oximetry 08/02/16 08/02/16 08/02/16 02:00 03:00 03:23 Temperature Pulse Rate 114 H 101 H 102 H Respiratory 18 18 Rate Blood Pressure 91/47 90/48 90/48 O2 Sat by Pulse 96 96 96 Oximetry 08/02/16 08/02/16 08/02/16 04:00 05:00 06:00 Temperature 100.9 F H Pulse Rate 110 H 96 H 100 H Respiratory 16 16 18 Rate Blood Pressure 105/55 96/47 102/49 O2 Sat by Pulse 97 97 97 Oximetry 08/02/16 08/02/16 07:00 08:00 Temperature 100.3 F H Pulse Rate 99 H 100 H Respiratory 16 17 Rate Blood Pressure 100/40 99/42 O2 Sat by Pulse 97 97 Oximetry Constitutional: no acute distress, comatose, other (intubated) Eyes: other (pupils are equal, very slowly reactive) ENT: other (he continued position at 26) Neck: supple, no JVD Ascultation: Right: diminished breath sounds, Bilateral: clear Gastrointestinal: normoactive bowel sounds, non-distended Integumentary: normal Extremities: no cyanosis, no edema Neurologic: other (again very limited right upper extremity , minimal response on pain stimulation,pupils equal, poor reflexes) CBC and BMP: 08/02/16 09:44 08/02/16 09:44 ABG, PT/INR, D-dimer: ABG POC ABG pH 7.460 (7.35-7.45) H 08/02/16 03:55 POC ABG pCO2 31.2 (35-45) L 08/02/16 03:55 POC ABG pO2 71 (80-105) L 08/02/16 03:55 POC ABG HCO3 22.2 08/02/16 03:55 POC ABG Total CO2 23 08/02/16 03:55 POC ABG O2 Sat 95 08/02/16 03:55 PT/INR, D-dimer PT 15.8 Sec. (12.2-14.9) H 07/31/16 00:13 INR 1.20 (0.87-1.13) H 07/31/16 00:13 Abnormal lab findings: Abnormal Labs 07/31/16 07/31/16 07/31/16 08:39 10:07 12:07 WBC Hgb Hct MCV MCH MCHC RDW Seg Neuts % (Manual) Lymphocytes % (Manual) Seg Neutrophils # Man POC ABG pH POC ABG pCO2 POC ABG pO2 Sodium Carbon Dioxide BUN Glucose POC Glucose 205 H 188 H Calcium Total Creatine Kinase 865 H CK-MB (CK-2) 5.9 H 07/31/16 07/31/16 07/31/16 16:19 19:58 23:53 WBC Hgb Hct MCV MCH MCHC RDW Seg Neuts % (Manual) Lymphocytes % (Manual) Seg Neutrophils # Man POC ABG pH POC ABG pCO2 POC ABG pO2 Sodium Carbon Dioxide BUN Glucose POC Glucose 195 H 147 H 160 H Calcium Total Creatine Kinase CK-MB (CK-2) 08/01/16 08/01/16 08/01/16 04:18 04:42 07:45 WBC 14.8 H Hgb 10.7 L Hct 34.9 L MCV 82 L MCH 25 L MCHC 31 L RDW 19.1 H Seg Neuts % (Manual) 80.0 H Lymphocytes % (Manual) 12.0 L Seg Neutrophils # Man 11.8 H POC ABG pH POC ABG pCO2 33.4 L POC ABG pO2 66 L Sodium Carbon Dioxide BUN Glucose POC Glucose 225 H Calcium Total Creatine Kinase CK-MB (CK-2) 08/01/16 08/01/16 08/01/16 07:45 10:09 10:59 WBC Hgb Hct MCV MCH MCHC RDW Seg Neuts % (Manual) Lymphocytes % (Manual) Seg Neutrophils # Man POC ABG pH POC ABG pCO2 POC ABG pO2 Sodium Carbon Dioxide BUN 29 H Glucose 233 H POC Glucose 266 H 318 H Calcium 7.6 L Total Creatine Kinase CK-MB (CK-2) 08/01/16 08/01/16 08/01/16 14:24 17:56 21:21 WBC Hgb Hct MCV MCH MCHC RDW Seg Neuts % (Manual) Lymphocytes % (Manual) Seg Neutrophils # Man POC ABG pH POC ABG pCO2 POC ABG pO2 Sodium Carbon Dioxide BUN Glucose POC Glucose 298 H 239 H 203 H Calcium Total Creatine Kinase CK-MB (CK-2) 08/02/16 08/02/16 08/02/16 02:05 03:55 05:38 WBC Hgb Hct MCV MCH MCHC RDW Seg Neuts % (Manual) Lymphocytes % (Manual) Seg Neutrophils # Man POC ABG pH 7.460 H POC ABG pCO2 31.2 L POC ABG pO2 71 L Sodium Carbon Dioxide BUN Glucose POC Glucose 248 H 253 H Calcium Total Creatine Kinase CK-MB (CK-2) 08/02/16 08:38 WBC Hgb Hct MCV MCH MCHC RDW Seg Neuts % (Manual) Lymphocytes % (Manual) Seg Neutrophils # Man POC ABG pH POC ABG pCO2 POC ABG pO2 Sodium 135 L Carbon Dioxide 20 L BUN 42 H Glucose 240 H POC Glucose Calcium 7.2 L Total Creatine Kinase CK-MB (CK-2)
[2016-08-02] MEDS: PEPCID IV SCH (09:16)
[2016-08-02] MEDS: LOVENOX SUB-Q SCH (09:16)
[2016-08-02 09:20] LABS: Anion Gap TNR mmol/L; BUN/Creatinine Ratio TNR; Blood Urea Nitrogen TNR mg/dL (9-20); Carbon Dioxide TNR mmol/L (22-30); Chloride TNR mmol/L (98-107); Glucose TNR mg/dL (75-100); Potassium TNR mmol/L (3.6-5.0); Sodium TNR mmol/L (137-145)
[2016-08-02 09:21] LABS: Calcium TNR mg/dL (8.4-10.2)
[2016-08-02] MEDS: PEPCID PO SCH ×2 (10:00→23:22)
[2016-08-02 10:17] LABS: Basophils % (Auto) 0.7 % (0.0-1.8); Eosinophils % (Auto) 1.9 % (0.0-4.3); Hematocrit 29.1 % (35.5-45.6); Hemoglobin 9.4 gm/dl (11.8-15.2); Mean Corpuscular HGB Conc 32 % (32-34); Mean Corpuscular Volume 80 fl (84-94); Platelet Count 141 K/mm3 (140-440); Red Blood Count 3.62 M/mm3 (3.65-5.03); Red Cell Distribution Width 18.7 % (13.2-15.2); White Blood Count 10.5 K/mm3 (4.5-11.0)
[2016-08-02 10:20] LABS: Mean Corpuscular Hemoglobin 26 pg (28-32)
[2016-08-02 10:25] LABS: Blood Urea Nitrogen 42 mg/dL (9-20); Calcium 7.6 mg/dL (8.4-10.2); Carbon Dioxide 21 mmol/L (22-30); Chloride 99.9 mmol/L (98-107); Glucose 248 mg/dL (75-100); Sodium 135 mmol/L (137-145)
[2016-08-02 10:31] LABS: Anion Gap 19 mmol/L
[2016-08-02 10:32] LABS: Potassium 4.4 mmol/L (3.6-5.0)
--- NOTE | 2016-08-02 11:07 | Progress Note ---
Assessment and Plan 76-year-old man with a history of hypertension, diabetes, hyperlipidemia, BPH, was brought to the emergency room because son found him on the floor with unresponsiveness. Patient was intubated in the emergency room. Acute Respiratory failure - on vent, pulmonary following Altered mental status/Acute encephalopathy - CT head was unremarkable on admission - neuro consulted and recommended MRI, will follow result Elevated LFTs - Obtained ultrasound of the abdomen - US showed cholelithiasis without cholecystitis Hypertension - cont monitor, provide Bp meds with TF Diabetes - SSI Hyperlipidemia - hold statin for elevated LFT BPH - monitor urine output SIRS - pt has elevated white count and tachycardia - cont zosyn and follow blood cx, cxr showed atelectasis Prognosis guarded The high probability of a clinically significant, sudden or life threatening deterioration of the system(s) required my full and direct attention, intervention and personal management. The aggregate critical care time was [32] minutes. This time is in addition to time spent performing reported procedures but includes the following: [x] Data Review and interpretation [x] Patient assessment and monitoring of vital signs [x] Documentation [x] Medication orders and management Subjective Date of service: 08/02/16 Principal diagnosis: acute respiratory failure Interval history: Pt seen and examined Pt intubated without any sedation neuro recommended MRI, pending Objective - Constitutional Vitals: Vital Signs - 12hr 08/01/16 08/02/16 08/02/16 23:29 00:00 01:00 Temperature 100.7 F H Pulse Rate 115 H 113 H 108 H Respiratory 20 18 19 Rate Blood Pressure 93/50 95/47 85/43 O2 Sat by Pulse 98 92 97 Oximetry 08/02/16 08/02/16 08/02/16 02:00 03:00 03:23 Temperature Pulse Rate 114 H 101 H 102 H Respiratory 18 18 Rate Blood Pressure 91/47 90/48 90/48 O2 Sat by Pulse 96 96 96 Oximetry 08/02/16 08/02/16 08/02/16 04:00 05:00 06:00 Temperature 100.9 F H Pulse Rate 110 H 96 H 100 H Respiratory 16 16 18 Rate Blood Pressure 105/55 96/47 102/49 O2 Sat by Pulse 97 97 97 Oximetry 08/02/16 08/02/16 08/02/16 07:00 08:00 09:00 Temperature 100.3 F H Pulse Rate 99 H 100 H 94 H Respiratory 16 17 17 Rate Blood Pressure 100/40 99/42 99/51 O2 Sat by Pulse 97 97 97 Oximetry 08/02/16 08/02/16 09:32 10:00 Temperature Pulse Rate 99 H 101 H Respiratory 17 Rate Blood Pressure 99/51 93/46 O2 Sat by Pulse 98 98 Oximetry - Labs CBC & Chem 7: 08/02/16 09:44 08/02/16 09:44 Labs: Abnormal lab results 08/01/16 08/01/16 08/01/16 Range/Units 14:24 17:56 21:21 RBC (3.65-5.03) M/mm3 Hgb (11.8-15.2) gm/dl Hct (35.5-45.6) % MCV (84-94) fl MCH (28-32) pg RDW (13.2-15.2) % [place] % (Auto) (0.0-7.3) % [place] # (0.0-0.8) K/mm3 Seg Neutrophils % (40.0-70.0) % POC ABG pH (7.35-7.45) POC ABG pCO2 (35-45) POC ABG pO2 (80-105) Sodium (137-145) mmol/L Carbon Dioxide (22-30) mmol/L BUN (9-20) mg/dL Glucose (75-100) mg/dL POC Glucose 298 H 239 H 203 H (70-105) Calcium (8.4-10.2) mg/dL 08/02/16 08/02/16 08/02/16 Range/Units 02:05 03:55 05:38 RBC (3.65-5.03) M/mm3 Hgb (11.8-15.2) gm/dl Hct (35.5-45.6) % MCV (84-94) fl MCH (28-32) pg RDW (13.2-15.2) % [place] % (Auto) (0.0-7.3) % [place] # (0.0-0.8) K/mm3 Seg Neutrophils % (40.0-70.0) % POC ABG pH 7.460 H (7.35-7.45) POC ABG pCO2 31.2 L (35-45) POC ABG pO2 71 L (80-105) Sodium (137-145) mmol/L Carbon Dioxide (22-30) mmol/L BUN (9-20) mg/dL Glucose (75-100) mg/dL POC Glucose 248 H 253 H (70-105) Calcium (8.4-10.2) mg/dL 08/02/16 08/02/16 08/02/16 Range/Units 09:11 09:44 09:44 RBC 3.62 L (3.65-5.03) M/mm3 Hgb 9.4 L (11.8-15.2) gm/dl Hct 29.1 L (35.5-45.6) % MCV 80 L (84-94) fl MCH 26 L (28-32) pg RDW 18.7 H (13.2-15.2) % [place] % (Auto) 9.2 H (0.0-7.3) % [place] # 1.0 H (0.0-0.8) K/mm3 Seg Neutrophils % 72.0 H (40.0-70.0) % POC ABG pH (7.35-7.45) POC ABG pCO2 (35-45) POC ABG pO2 (80-105) Sodium 135 L (137-145) mmol/L Carbon Dioxide 21 L (22-30) mmol/L BUN 42 H (9-20) mg/dL Glucose 248 H (75-100) mg/dL POC Glucose 306 H (70-105) Calcium 7.6 L (8.4-10.2) mg/dL
--- NOTE | 2016-08-02 11:56 | Consultation ---
History of Present Illness Consult date: 08/02/16 Requesting physician: NICKOLAS YUAN Reason for Consult: AMS Chief complaint: no complaints able to be expressed d/t AMS History of present illness: 76 YO M Hx HTN/HLD/DM2 present w/ AMS on 07/30. He was admitted to ICU for acute respiratory failure. Patient was found face down on his bed unresponsive 07/30 and EMS were called. He was rushed to the ER and after initial assessment, he was intubated to protect airway and assist with resuscitation. He has history of diabetes and his initial blood sugar was 60. He was given D50 W and was later admitted to the ICU.No recent history of respiratory tract infection, stroke, chest pain episodes. No recent history of fever or chills or influenza- like illness. Apparently no head trauma. After admit to ICU he was noted to have shock -.hypotensive during rounds. Sx are constant. There are no clear aggravating, relieving or temporal factors. Severity is such to limit ADLs. Past History Past Medical History: diabetes, hypertension, other (AMS limits direct hx) Past Surgical History: Other (AMS limits direct hx) Social history: other Family history: other (AMS limits direct hx) Medications and Allergies Allergies Allergy/AdvReac Type Severity Reaction Status Date / Time No Known Allergies Allergy Verified 07/31/16 02:37 Home Medications Medication Instructions Recorded Confirmed Last Taken Type Aspirin [Aspirin BABY CHEW TAB] 1 tab PO DAILY 07/31/16 07/31/16 Unknown History Carvedilol [Coreg] 25 mg PO BID 07/31/16 07/31/16 Unknown History Hydrochlorothiazide [HCTZ] 25 mg PO QDAY 07/31/16 07/31/16 Unknown History Lisinopril [Zestril TAB] 1 tab PO DAILY 07/31/16 07/31/16 Unknown History Pravastatin (Nf) [Pravachol] 40 mg PO QHS 07/31/16 07/31/16 Unknown History Tamsulosin [Flomax] 1 cap PO DAILY 07/31/16 07/31/16 Unknown History amLODIPine [Norvasc] 10 mg PO DAILY 07/31/16 07/31/16 Unknown History hydrALAZINE [Apresoline] 25 mg PO Q8HR 07/31/16 07/31/16 Unknown History Active Meds: Active Medications Acetaminophen (Tylenol) 650 mg PO Q4H PRN PRN Reason: Pain MILD(1-3)/Fever >100.5/MARTINEZ Acetaminophen (Tylenol) 650 mg MT Q4H PRN PRN Reason: Pain MILD(1-3)/Fever >100.5/MARTINEZ Lipase/Protease/Amylase ([place] Dr 10,500 Unit) 1 each FEEDTUBE PRN PRN PRN Reason: For Clogged Feeding Tube Dextrose (D50w (25gm)) 50 ml IV PRN PRN PRN Reason: Hypoglycemia Enoxaparin Sodium (Lovenox) 40 mg SUB-Q QDAY@1000 SANIA Last Admin: 08/02/16 09:16 Dose: 40 mg Famotidine (Pepcid) 20 mg PO BID SANIA Hydrophilic Ointment (Vaseline Lip Therapy) 1 applic TP Q2HR PRN PRN Reason: Dry Lips Lorazepam 100 mg/ Sodium Chloride/ Miscellaneous Information 100 mls @ 1 mls/ hr IV TITR SANIA; 1 MG/HR PRN Reason: Protocol Last Titration: 07/31/16 07:00 Dose: 0 mg/hr, 0 mls/hr Sodium Chloride (Nacl 0.45% 1000 Ml) 1,000 mls @ 75 mls/hr IV DIRECT SANIA Last Admin: 08/02/16 06:36 Dose: 75 mls/hr Piperacillin Sod/Tazobactam Sod (Zosyn/Ns 4.5gm/100ml) 4.5 gm in 100 mls @ 200 mls/hr IV Q8H SANIA PRN Reason: Protocol Last Admin: 08/02/16 06:37 Dose: 200 mls/hr Insulin Detemir (Levemir) 20 units SUB-Q DAILY [facility] Insulin Human Regular (Novolin R) 0 units SUB-Q Q4HR SANIA PRN Reason: Protocol Last Admin: 08/02/16 09:24 Dose: 6 units Multi-Ingred Cream/Lotion/Oil/Oint (Artificial Tears Ophth Oint) 1 applic OU Q4HR PRN PRN Reason: Dry Eye(s) Ondansetron HCl (Zofran) 4 mg IV Q8H PRN PRN Reason: N/V unrelieved by Reglan Simple Syrup (Simple Syrup) 15 ml FEEDTUBE PRN PRN PRN Reason: Hypoglycemia Simple Syrup (Simple Syrup) 30 ml FEEDTUBE PRN PRN PRN Reason: Hypoglycemia Sodium Bicarbonate (Sodium Bicarbonate) 325 mg FEEDTUBE PRN PRN PRN Reason: For Clogged Feeding Tube Sodium Chloride (Nacl 0.9% 500 Ml) 1 ml IV DIRECT SANIA Review of Systems ROS unobtainable: due to mental status Physical Examination - Vital Signs Vital Signs: Vital Signs Pulse Ox 90 07/30/16 23:14 - Constitutional General appearance: acutely ill, chronically ill - EENT EENT: Present: ATNC, PERRL, mucous membranes dry - Respiratory Respiratory: Present: chest non-tender, no respiratory distress, decreased breath sounds - Cardiovascular Cardiovascular: Present: regular rate Extremities: Present: no peripheral edema bilatateraly, no clubbing, cyanosis, no inflammation, no ischemia or petechiae - Gastrointestinal Gastrointestinal: Present: normoactive bowel sounds, soft, non-distended - Integumentary Integumentary: Present: normal - Neurologic Cranial nerve examination: PERRL, face symmetric, tongue midline, intact, intact gag reflex, Intact Vestibulo-ocular r, intact corneal reflex Speech examination: other (nos peech, not following commands while stuporous) Detailed motor examination: other (UE no movement, LE slight ? withdrawal in LLE but triple flexion superimposed b/l) Detailed sensory examination: intact, pain Reflex and gait examination: intact Reflexes: 0: ankle, 1+: bicep, knee, tricep - Musculoskeletal Musculoskeletal: Present: no fluid collection, no pain Results - Laboratory Findings CBC and BMP: 08/02/16 09:44 08/02/16 09:44 Abnormal Lab Findings: Abnormal Labs 07/31/16 07/31/16 07/31/16 08:39 10:07 12:07 WBC RBC Hgb Hct MCV MCH MCHC RDW [place] % (Auto) [place] # Seg Neutrophils % Seg Neuts % (Manual) Lymphocytes % (Manual) Seg Neutrophils # Man POC ABG pH POC ABG pCO2 POC ABG pO2 Sodium Carbon Dioxide BUN Glucose POC Glucose 205 H 188 H Calcium Total Creatine Kinase 865 H CK-MB (CK-2) 5.9 H 07/31/16 07/31/16 07/31/16 16:19 19:58 23:53 WBC RBC Hgb Hct MCV MCH MCHC RDW [place] % (Auto) [place] # Seg Neutrophils % Seg Neuts % (Manual) Lymphocytes % (Manual) Seg Neutrophils # Man POC ABG pH POC ABG pCO2 POC ABG pO2 Sodium Carbon Dioxide BUN Glucose POC Glucose 195 H 147 H 160 H Calcium Total Creatine Kinase CK-MB (CK-2) 08/01/16 08/01/16 08/01/16 04:18 04:42 07:45 WBC 14.8 H RBC Hgb 10.7 L Hct 34.9 L MCV 82 L MCH 25 L MCHC 31 L RDW 19.1 H [place] % (Auto) [place] # Seg Neutrophils % Seg Neuts % (Manual) 80.0 H Lymphocytes % (Manual) 12.0 L Seg Neutrophils # Man 11.8 H POC ABG pH POC ABG pCO2 33.4 L POC ABG pO2 66 L Sodium Carbon Dioxide BUN Glucose POC Glucose 225 H Calcium Total Creatine Kinase CK-MB (CK-2) 08/01/16 08/01/16 08/01/16 07:45 10:09 10:59 WBC RBC Hgb Hct MCV MCH MCHC RDW [place] % (Auto) [place] # Seg Neutrophils % Seg Neuts % (Manual) Lymphocytes % (Manual) Seg Neutrophils # Man POC ABG pH POC ABG pCO2 POC ABG pO2 Sodium Carbon Dioxide BUN 29 H Glucose 233 H POC Glucose 266 H 318 H Calcium 7.6 L Total Creatine Kinase CK-MB (CK-2) 08/01/16 08/01/16 08/01/16 14:24 17:56 21:21 WBC RBC Hgb Hct MCV MCH MCHC RDW [place] % (Auto) [place] # Seg Neutrophils % Seg Neuts % (Manual) Lymphocytes % (Manual) Seg Neutrophils # Man POC ABG pH POC ABG pCO2 POC ABG pO2 Sodium Carbon Dioxide BUN Glucose POC Glucose 298 H 239 H 203 H Calcium Total Creatine Kinase CK-MB (CK-2) 08/02/16 08/02/16 08/02/16 02:05 03:55 05:38 WBC RBC Hgb Hct MCV MCH MCHC RDW [place] % (Auto) [place] # Seg Neutrophils % Seg Neuts % (Manual) Lymphocytes % (Manual) Seg Neutrophils # Man POC ABG pH 7.460 H POC ABG pCO2 31.2 L POC ABG pO2 71 L Sodium Carbon Dioxide BUN Glucose POC Glucose 248 H 253 H Calcium Total Creatine Kinase CK-MB (CK-2) 06/28/17 06/28/17 06/28/17 09:11 09:44 09:44 WBC RBC 3.62 L Hgb 9.4 L Hct 29.1 L MCV 80 L MCH 26 L MCHC RDW 18.7 H [place] % (Auto) 9.2 H [place] # 1.0 H Seg Neutrophils % 72.0 H Seg Neuts % (Manual) Lymphocytes % (Manual) Seg Neutrophils # Man POC ABG pH POC ABG pCO2 POC ABG pO2 Sodium 135 L Carbon Dioxide 21 L BUN 42 H Glucose 248 H POC Glucose 306 H Calcium 7.6 L Total Creatine Kinase CK-MB (CK-2) Assessment and Plan 76 YO M Hx HTN/HLD/DM2 present w/ AMS on 07/30 found face down on his bed unresponsive found to have acute resp failure s/p intubaton, initial blood sugar was 60, shock hypotensive. CTH neg. decreased Ca/pO2 and elevated WBC, BUN , and AST/ALT mildly. On exam pt w/ depressed level of arousal stuporous, poor attention/concentration , paucity of speech, not following midline/peripheral commands w/ no clear movement in UE and LE triple flexion but also ? ? LLE withdrawal superimposed. I suspect toxic metabolic infectious derangement as the etiology for neurologic decompensation. There is no clear new focality on neurologic examination to suggest acute [employer] process e.g. Stroke, Seizure or Meningitis. Recommendations: 1. MRI Brain +/- [place] to r/o acute [employer] lesion. 2. Check serum TSH and correct as necessary 3. Cont Infectious work up/medical management for UTI, PNA, cellulitis, bacteremia, etc. 4. Avoid hyponatremia,o/hyper-calcemia, hypo/hyperglycemia, acidosis, hypoxia/ hypoxemia, hypercarbia/hypercapnia 5. Avoid institution of any new psychoactive medications (e.g. antihistamines, anticholinergics, BZD, hypnotics, opiates) as able unless low doses of low potency antipsychotic needed for behavioral issues complicating medical care 6. Specific neurologic assessment of likelihood of prognosis back to baseline @ this point is limited as there is no active primary neurologic issue ongoing, and therefore prognosis will be completely secondary to any potential progress patient is able to make from multiple ongoing critical medical issues as above. 7. Thiamine/Folate/CIWA protocol accordingly for any hx obtained to suggest EtOH withdrawal 8. Cont home meds-there is no neurologic indication to change
--- NOTE | 2016-08-02 13:12 | XRay Report ---
Single view chest: Compared to 08/02/16. History: Left arm PICC line placement. Findings: Tip of left PICC line is in mid superior vena cava. Stable support system. Bibasilar ill-defined densities probably related to discoid atelectasis/pneumonitis and/or pleural effusions. Impression: Findings as detailed above.
[2016-08-03] MEDS: ZOSYN/NS 4.5GM/100ML 4.5 GM/100 ML VIAL IV SCH ×3 (05:20→23:01)
[2016-08-03 07:27] LABS: Basophils % (Auto) 0.2 % (0.0-1.8); Eosinophils % (Auto) 1.2 % (0.0-4.3); Hematocrit 26.5 % (35.5-45.6); Hemoglobin 8.4 gm/dl (11.8-15.2); Mean Corpuscular HGB Conc 32 % (32-34); Mean Corpuscular Volume 80 fl (84-94); Platelet Count 112 K/mm3 (140-440); Red Blood Count 3.32 M/mm3 (3.65-5.03); Red Cell Distribution Width 18.7 % (13.2-15.2); White Blood Count 7.6 K/mm3 (4.5-11.0)
[2016-08-03 07:36] LABS: Mean Corpuscular Hemoglobin 25 pg (28-32)
[2016-08-03 07:43] LABS: Anion Gap 17 mmol/L; BUN/Creatinine Ratio 38.18; Blood Urea Nitrogen 42 mg/dL (9-20); Calcium 6.8 mg/dL (8.4-10.2); Carbon Dioxide 20 mmol/L (22-30); Glucose 243 mg/dL (75-100); Potassium 3.7 mmol/L (3.6-5.0); Sodium 132 mmol/L (137-145)
[2016-08-03] MEDS: TYLENOL FEEDTUBE PRN (08:02)
--- NOTE | 2016-08-03 08:22 | XRay Report ---
AP CHEST :08/03/16 CLINICAL: Intubated.Follow up respiratory failure. COMPARISON:The previous day. FINDINGS: The endotracheal tube is in satisfactory position. The feeding tube is satisfactory. Left PICC line tip is in the SVC. Normal heart and pulmonary vessels. Interval improvement with near complete clearing of the lung bases. No pneumothorax. IMPRESSION: Mild residual bibasal subsegmental atelectasis.No congestive heart failure or pneumonia.
[2016-08-03] MEDS: LOVENOX SUB-Q SCH (09:27)
[2016-08-03] MEDS: PEPCID PO SCH ×2 (09:27→21:57)
[2016-08-03] MEDS: NACL 0.45% 1000 ML 1,000 ML IV SCH (09:30)
--- NOTE | 2016-08-03 10:03 | Progress Note ---
Assessment and Plan Acute respiratory failure. Currently with adequate bedside oximetry and ABGs. Noted with good spontaneous ventilation for short periods of time. Shock. Controlled,resolved Metabolic encephalopathy. Not improving. Unchanged neurological status. Neurology following History diabetes Obesity Recommendations Neurology follow-up Continue current ventilator support We'll decrease to have volume 450 On vancomycin for fever I asked RT to do a sputum culture from the endotracheal tube for later monitoring Will reassess for further review with SBT. However, anticipate need for tracheotomy if we don't see any significant improvement in neurological status. Discussed status with patient's son and family in detail. All questions answered. Critical care time was 31 minutes of [id number] evaluation and coordination of care. Subjective Date of service: 08/03/16 Principal diagnosis: acute respiratory failure Interval history: Remains intubated, no events overnight Objective Vital Signs - 12hr 08/02/16 08/02/16 08/02/16 22:40 23:00 23:59 Temperature Pulse Rate 93 H 98 H 95 H Respiratory 17 18 Rate Blood Pressure 104/44 109/50 111/45 O2 Sat by Pulse 98 96 99 Oximetry 08/03/16 08/03/16 08/03/16 00:00 01:00 02:00 Temperature 100.8 F H Pulse Rate 94 H 101 H 91 H Respiratory 17 17 18 Rate Blood Pressure 100/46 100/50 124/52 O2 Sat by Pulse 98 96 97 Oximetry 08/03/16 08/03/16 08/03/16 03:00 04:00 05:00 Temperature 100.9 F H Pulse Rate 90 88 90 Respiratory 19 20 18 Rate Blood Pressure 111/47 105/44 124/44 O2 Sat by Pulse 97 97 98 Oximetry 08/03/16 08/03/16 08/03/16 06:00 07:00 08:00 Temperature 99.5 F Pulse Rate 81 88 98 H Respiratory 19 20 16 Rate Blood Pressure 104/53 108/52 86/50 O2 Sat by Pulse 97 95 96 Oximetry 08/03/16 09:00 Temperature Pulse Rate 86 Respiratory 22 Rate Blood Pressure 102/50 O2 Sat by Pulse 94 Oximetry Constitutional: no acute distress, other (intubated, did stupor) Eyes: other (pupils are equal, very slowly reactive) ENT: other (he continued position at 23) Neck: supple, no JVD Ascultation: Bilateral: clear, diminished breath sounds Gastrointestinal: normoactive bowel sounds, non-distended Integumentary: normal Extremities: no cyanosis, no edema Neurologic: other (again very limited right upper extremity , minimal response on pain stimulation,pupils equal, poor reflexes) CBC and BMP: 08/03/16 07:05 08/03/16 07:05 ABG, PT/INR, D-dimer: ABG POC ABG pH 7.460 (7.35-7.45) H 08/02/16 03:55 POC ABG pCO2 31.2 (35-45) L 08/02/16 03:55 POC ABG pO2 71 (80-105) L 08/02/16 03:55 POC ABG HCO3 22.2 08/02/16 03:55 POC ABG Total CO2 23 08/02/16 03:55 POC ABG O2 Sat 95 08/02/16 03:55 PT/INR, D-dimer PT 15.8 Sec. (12.2-14.9) H 07/31/16 00:13 INR 1.20 (0.87-1.13) H 07/31/16 00:13 Abnormal lab findings: Abnormal Labs 07/31/16 07/31/16 07/31/16 08:39 10:07 12:07 WBC RBC Hgb Hct MCV MCH MCHC RDW Plt Count Lymph % (Auto) [place] % (Auto) Lymph # [place] # Seg Neutrophils % Seg Neuts % (Manual) Lymphocytes % (Manual) Seg Neutrophils # Man POC ABG pH POC ABG pCO2 POC ABG pO2 Sodium Carbon Dioxide BUN Glucose POC Glucose 205 H 188 H Calcium Total Creatine Kinase 865 H CK-MB (CK-2) 5.9 H 07/31/16 07/31/16 07/31/16 16:19 19:58 23:53 WBC RBC Hgb Hct MCV MCH MCHC RDW Plt Count Lymph % (Auto) [place] % (Auto) Lymph # [place] # Seg Neutrophils % Seg Neuts % (Manual) Lymphocytes % (Manual) Seg Neutrophils # Man POC ABG pH POC ABG pCO2 POC ABG pO2 Sodium Carbon Dioxide BUN Glucose POC Glucose 195 H 147 H 160 H Calcium Total Creatine Kinase CK-MB (CK-2) 08/01/16 08/01/16 08/01/16 04:18 04:42 07:45 WBC 14.8 H RBC Hgb 10.7 L Hct 34.9 L MCV 82 L MCH 25 L MCHC 31 L RDW 19.1 H Plt Count Lymph % (Auto) [place] % (Auto) Lymph # [place] # Seg Neutrophils % Seg Neuts % (Manual) 80.0 H Lymphocytes % (Manual) 12.0 L Seg Neutrophils # Man 11.8 H POC ABG pH POC ABG pCO2 33.4 L POC ABG pO2 66 L Sodium Carbon Dioxide BUN Glucose POC Glucose 225 H Calcium Total Creatine Kinase CK-MB (CK-2) 08/01/16 08/01/16 08/01/16 07:45 10:09 10:59 WBC RBC Hgb Hct MCV MCH MCHC RDW Plt Count Lymph % (Auto) [place] % (Auto) Lymph # [place] # Seg Neutrophils % Seg Neuts % (Manual) Lymphocytes % (Manual) Seg Neutrophils # Man POC ABG pH POC ABG pCO2 POC ABG pO2 Sodium Carbon Dioxide BUN 29 H Glucose 233 H POC Glucose 266 H 318 H Calcium 7.6 L Total Creatine Kinase CK-MB (CK-2) 08/01/16 08/01/16 08/01/16 14:24 17:56 21:21 WBC RBC Hgb Hct MCV MCH MCHC RDW Plt Count Lymph % (Auto) [place] % (Auto) Lymph # [place] # Seg Neutrophils % Seg Neuts % (Manual) Lymphocytes % (Manual) Seg Neutrophils # Man POC ABG pH POC ABG pCO2 POC ABG pO2 Sodium Carbon Dioxide BUN Glucose POC Glucose 298 H 239 H 203 H Calcium Total Creatine Kinase CK-MB (CK-2) 08/02/16 08/02/16 08/02/16 02:05 03:55 05:38 WBC RBC Hgb Hct MCV MCH MCHC RDW Plt Count Lymph % (Auto) [place] % (Auto) Lymph # [place] # Seg Neutrophils % Seg Neuts % (Manual) Lymphocytes % (Manual) Seg Neutrophils # Man POC ABG pH 7.460 H POC ABG pCO2 31.2 L POC ABG pO2 71 L Sodium Carbon Dioxide BUN Glucose POC Glucose 248 H 253 H Calcium Total Creatine Kinase CK-MB (CK-2) 08/02/16 08/02/16 08/02/16 09:11 09:44 09:44 WBC RBC 3.62 L Hgb 9.4 L Hct 29.1 L MCV 80 L MCH 26 L MCHC RDW 18.7 H Plt Count Lymph % (Auto) [place] % (Auto) 9.2 H Lymph # [place] # 1.0 H Seg Neutrophils % 72.0 H Seg Neuts % (Manual) Lymphocytes % (Manual) Seg Neutrophils # Man POC ABG pH POC ABG pCO2 POC ABG pO2 Sodium 135 L Carbon Dioxide 21 L BUN 42 H Glucose 248 H POC Glucose 306 H Calcium 7.6 L Total Creatine Kinase CK-MB (CK-2) 08/02/16 08/02/16 08/02/16 15:53 17:33 21:39 WBC RBC Hgb Hct MCV MCH MCHC RDW Plt Count Lymph % (Auto) [place] % (Auto) Lymph # [place] # Seg Neutrophils % Seg Neuts % (Manual) Lymphocytes % (Manual) Seg Neutrophils # Man POC ABG pH POC ABG pCO2 POC ABG pO2 Sodium Carbon Dioxide BUN Glucose POC Glucose 205 H 250 H 282 H Calcium Total Creatine Kinase CK-MB (CK-2) 08/03/16 08/03/16 08/03/16 02:28 05:47 07:05 WBC RBC 3.32 L Hgb 8.4 L Hct 26.5 L MCV 80 L MCH 25 L MCHC RDW 18.7 H Plt Count 112 L Lymph % (Auto) 12.5 L [place] % (Auto) 10.2 H Lymph # 1.0 L [place] # Seg Neutrophils % 75.9 H Seg Neuts % (Manual) Lymphocytes % (Manual) Seg Neutrophils # Man POC ABG pH POC ABG pCO2 POC ABG pO2 Sodium Carbon Dioxide BUN Glucose POC Glucose 317 H 253 H Calcium Total Creatine Kinase CK-MB (CK-2) 08/03/16 07:05 WBC RBC Hgb Hct MCV MCH MCHC RDW Plt Count Lymph % (Auto) [place] % (Auto) Lymph # [place] # Seg Neutrophils % Seg Neuts % (Manual) Lymphocytes % (Manual) Seg Neutrophils # Man POC ABG pH POC ABG pCO2 POC ABG pO2 Sodium 132 L Carbon Dioxide 20 L BUN 42 H Glucose 243 H POC Glucose Calcium 6.8 L Total Creatine Kinase CK-MB (CK-2)
[2016-08-03] MEDS: LEVEMIR SUB-Q SCH (10:41)
[2016-08-03] MEDS ORDERED: VANCOMYCIN PHARMACY TO DOSE IV SCH (11:00)
--- NOTE | 2016-08-03 11:43 | Electroencephalogram Report ---
Electroencephalogram EEG Date of exam: 08/02/16 History: 76 YO M w/ AMS Impression: Abnormal awake and drowsy 20 minute routine EEG. There are findings to suggest moderate-severe nonspecific diffuse cerebral dysfunction slightly maximal in the left hemisphere w/ superimposed findings that have been associated with toxic metabolic infectious encephalopathies. There are no findings to suggest cortical irritability, epileptiform discharges or electrographic seizures. Description: The waking background shows a nearly continuous inappropriate organization with poorly-defined anterior posterior voltage and frequency gradients. Posteriorly, there is a poorly-developed mixed theta and delta frequency background which is slightly greater in delta to theta ratio diffusely over the left hemisphere. There is unclear reactivity and no variability. There are no features of sleep. Throughout, the recording there are no epileptiform abnormalities, focal or lateralizing features, or significant interhemispheric findings. There are however frequent frontaly predominant generalize discharges w/ triphasic morphology that frequently occur as 2-3 Hz GPDs with rhythmicity that do not evolve. Interpretation: This is a digitally acquired 21-channel electroencephalogram. Both bipolar and referential montages were used in interpretation. Electrodes were placed in accordance with the International 10-20 system.
--- NOTE | 2016-08-03 13:32 | Magnetic Resonance Report ---
MRI BRAIN WITH/WITHOUT CONTRAST: History: Altered mental status. Technique: Multiple T1 and T2 weighted images were obtained in multiple planes. Axial diffusion and gradient imaging was performed. Post contrast T1 images in two planes were obtained following IV gadolinium. Findings: Compared to the CT brain dated 07/31/16. MRI demonstrates subtle cortical diffusion restriction and edema in the bilateral parietal and temporal lobes. The left side is slightly more affected. There is no evidence for hemorrhage, mass or extra-axial fluid collection. Age appropriate cortical volume loss and mild nonspecific chronic white matter changes are noted. No chronic infarct. Ventricular size is normal and symmetric. The basal cisterns are clear. The brainstem and cerebellar hemispheres are within normal limits. The fourth ventricle is midline. The paranasal sinuses and mastoid air cells are well aerated. Normal flow voids are identified in the appropriate vessels at the [place]. No abnormal enhancement is identified following IV gadolinium. Impression: Acute to subacute cortical ischemia is noted in the bilateral parietal and temporal lobes, left greater than right. This suggests an episode of global hypoperfusion. Please correlate with the patient's clinical history.
[2016-08-03] MEDS ORDERED: VANCOMYCIN 2,000 MG in NACL 0.9% 500 ML 500 ML IV SCH (14:00)
--- NOTE | 2016-08-03 15:20 | Progress Note ---
Assessment and Plan 76-year-old man with a history of hypertension, diabetes, hyperlipidemia, BPH, was brought to the emergency room because son found him on the floor with unresponsiveness. Patient was intubated in the emergency room. 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 since admission - will add aspirin and lipitor - neuro following Elevated LFTs - Obtained ultrasound of the abdomen - US showed cholelithiasis without cholecystitis - monitor LFT as he will be on statin Hypertension - cont monitor, provide Bp meds with TF Diabetes - SSI Hyperlipidemia - start statin BPH - monitor urine output SIRS - pt has elevated white count and tachycardia - cont zosyn and follow blood cx, cxr showed atelectasis Prognosis guarded The high probability of a clinically significant, sudden or life threatening deterioration of the system(s) required my full and direct attention, intervention and personal management. The aggregate critical care time was [32] minutes. This time is in addition to time spent performing reported procedures but includes the following: [x] Data Review and interpretation [x] Patient assessment and monitoring of vital signs [x] Documentation [x] Medication orders and management Subjective Date of service: 08/03/16 Principal diagnosis: acute respiratory failure Interval history: Pt seen and examined Pt intubated without any sedation MRI showed b/l acute cva Objective - Exam Narrative Exam: General appearance: Present: no acute distress, well-nourished, other (intubated , unresponsive) - EENT Eyes: no scleral icterus, no conjunctival injection ENT: dentition normal, no thrush Ears: bilateral: normal - Neck Neck: no rigidity, no enlarged thyroid, no masses or JVD - Respiratory Respiratory effort: other (on vent) Respiratory: bilateral: CTA - Breasts Breasts: normal - Cardiovascular Heart Sounds: Present: S1 & S2 (tachycardic). Absent: gallop, rub Extremities: pulses intact, No edema, normal color - Gastrointestinal General gastrointestinal: Present: soft, non-distended, normal bowel sounds - Integumentary Integumentary: clear, dry - Neurologic Neurologic: other (does not follow commend) - Constitutional Vitals: Vital Signs - 12hr 08/03/16 08/03/1608/03/17 04:00 05:00 06:00 Temperature 100.9 F H Pulse Rate 88 90 81 Respiratory 20 18 19 Rate Blood Pressure 105/44 124/44 104/53 O2 Sat by Pulse 97 98 97 Oximetry 08/03/16 08/03/16 08/03/16 07:00 08:00 09:00 Temperature 99.5 F Pulse Rate 88 98 H 86 Respiratory 20 16 22 Rate Blood Pressure 108/52 86/50 102/50 O2 Sat by Pulse 95 96 94 Oximetry 08/03/16 08/03/16 08/03/16 10:00 12:00 12:02 Temperature 98.5 F Pulse Rate 94 H 79 Respiratory 17 21 Rate Blood Pressure 120/51 O2 Sat by Pulse 97 Oximetry 08/03/16 08/03/16 08/03/16 12:42 13:00 14:00 Temperature Pulse Rate 84 83 87 Respiratory 19 18 Rate Blood Pressure 114/55 118/57 121/53 O2 Sat by Pulse 96 96 97 Oximetry 08/03/16 15:00 Temperature Pulse Rate 82 Respiratory 21 Rate Blood Pressure 104/52 O2 Sat by Pulse 98 Oximetry - Labs CBC & Chem 7: 08/03/16 07:05 08/03/16 07:05 Labs: Abnormal lab results 08/02/16 08/02/16 08/02/16 Range/Units 15:53 17:33 21:39 RBC (3.65-5.03) M/mm3 Hgb (11.8-15.2) gm/dl Hct (35.5-45.6) % MCV (84-94) fl MCH (28-32) pg RDW (13.2-15.2) % Plt Count (140-440) K/mm3 Lymph % (Auto) (13.4-35.0) % [place] % (Auto) (0.0-7.3) % Lymph # (1.2-5.4) K/mm3 Seg Neutrophils % (40.0-70.0) % Sodium (137-145) mmol/L Carbon Dioxide (22-30) mmol/L BUN (9-20) mg/dL Glucose (75-100) mg/dL POC Glucose 205 H 250 H 282 H (70-105) Calcium (8.4-10.2) mg/dL 08/03/16 08/03/1608/03/17 Range/Units 02:28 05:47 07:05 RBC 3.32 L (3.65-5.03) M/mm3 Hgb 8.4 L (11.8-15.2) gm/dl Hct 26.5 L (35.5-45.6) % MCV 80 L (84-94) fl MCH 25 L (28-32) pg RDW 18.7 H (13.2-15.2) % Plt Count 112 L (140-440) K/mm3 Lymph % (Auto) 12.5 L (13.4-35.0) % [place] % (Auto) 10.2 H (0.0-7.3) % Lymph # 1.0 L (1.2-5.4) K/mm3 Seg Neutrophils % 75.9 H (40.0-70.0) % Sodium (137-145) mmol/L Carbon Dioxide (22-30) mmol/L BUN (9-20) mg/dL Glucose (75-100) mg/dL POC Glucose 317 H 253 H (70-105) Calcium (8.4-10.2) mg/dL 08/03/16 Range/Units 07:05 RBC (3.65-5.03) M/mm3 Hgb (11.8-15.2) gm/dl Hct (35.5-45.6) % MCV (84-94) fl MCH (28-32) pg RDW (13.2-15.2) % Plt Count (140-440) K/mm3 Lymph % (Auto) (13.4-35.0) % [place] % (Auto) (0.0-7.3) % Lymph # (1.2-5.4) K/mm3 Seg Neutrophils % (40.0-70.0) % Sodium 132 L (137-145) mmol/L Carbon Dioxide 20 L (22-30) mmol/L BUN 42 H (9-20) mg/dL Glucose 243 H (75-100) mg/dL POC Glucose (70-105) Calcium 6.8 L (8.4-10.2) mg/dL
[2016-08-03] MEDS ORDERED: ECOTRIN PO SCH (16:00)
[2016-08-04] MEDS: NACL 0.45% 1000 ML 1,000 ML IV SCH (04:11)
[2016-08-04 05:37] LABS: ISTAT Base Excess -3; ISTAT HCO3 22.5; ISTAT PCO2 38.4 (35-45); ISTAT PH 7.376 (7.35-7.45); ISTAT PO2 84 (80-105); ISTAT SO2 96; ISTAT TCO2 24
[2016-08-04] MEDS: ZOSYN/NS 4.5GM/100ML 4.5 GM/100 ML VIAL IV SCH ×3 (05:40→21:11)
[2016-08-04 07:07] LABS: Anion Gap 15 mmol/L; BUN/Creatinine Ratio 48.57; Blood Urea Nitrogen 34 mg/dL (9-20); Calcium 7.9 mg/dL (8.4-10.2); Carbon Dioxide 24 mmol/L (22-30); Chloride 103.2 mmol/L (98-107); Glucose 237 mg/dL (75-100); Sodium 138 mmol/L (137-145)
--- NOTE | 2016-08-04 08:51 | Progress Note ---
Assessment and Plan Acute respiratory failure. . Shock. Controlled,resolved Metabolic encephalopathy. Not improving. - acute /subacute ischemia on MRI, suggestive of hypoperfusion event/injury - abnormal awake EEG History diabetes Obesity Recommendations Continue current ventilator support Monitor fever, continue fever measures Check SC Will need trach if no obvious signs of improvement, complete ventilator wean Discussed status with staff. Family n/a Critical care time was 31 minutes of [id number] evaluation and coordination of care. Subjective Date of service: 08/04/16 Principal diagnosis: acute respiratory failure Interval history: intubated, non responsive Objective Vital Signs - 12hr 08/03/16 08/03/16 08/03/16 21:00 21:30 22:00 Temperature Pulse Rate 80 83 92 H Pulse Rate [ From Monitor] Respiratory 20 21 25 H Rate Blood Pressure 132/72 121/52 119/53 O2 Sat by Pulse 98 98 98 Oximetry 08/03/16 08/03/16 08/03/16 22:12 22:30 23:00 Temperature Pulse Rate 85 88 Pulse Rate [ From Monitor] Respiratory 21 20 19 Rate Blood Pressure 110/54 102/50 O2 Sat by Pulse 98 96 Oximetry 08/03/16 08/03/16 08/03/16 23:30 23:52 23:55 Temperature Pulse Rate 88 86 Pulse Rate [ 86 From Monitor] Respiratory 22 20 20 Rate Blood Pressure 124/65 124/65 O2 Sat by Pulse 99 100 Oximetry 08/04/16 08/04/16 08/04/16 00:00 00:30 01:00 Temperature 99.8 F H Pulse Rate 85 74 87 Pulse Rate [ From Monitor] Respiratory 20 18 20 Rate Blood Pressure 111/56 116/59 126/60 O2 Sat by Pulse 100 99 Oximetry 08/04/16 08/04/16 08/04/16 01:30 02:00 02:30 Temperature Pulse Rate 84 96 H 87 Pulse Rate [ From Monitor] Respiratory 21 23 Rate Blood Pressure 120/57 120/57 121/53 O2 Sat by Pulse 99 99 Oximetry 08/04/16 08/04/16 08/04/16 03:00 03:30 03:31 Temperature 99.8 F H Pulse Rate 81 83 Pulse Rate [ From Monitor] Respiratory 22 17 Rate Blood Pressure 118/53 133/64 O2 Sat by Pulse 98 99 Oximetry 08/04/16 08/04/16 08/04/16 04:00 04:30 04:31 Temperature Pulse Rate 89 84 Pulse Rate [ 82 From Monitor] Respiratory 30 H 20 21 Rate Blood Pressure 128/56 129/48 O2 Sat by Pulse 99 98 99 Oximetry 08/04/16 08/04/16 08/04/16 04:38 05:00 05:30 Temperature Pulse Rate 84 80 78 Pulse Rate [ From Monitor] Respiratory 20 23 Rate Blood Pressure 129/48 127/52 123/56 O2 Sat by Pulse 99 99 99 Oximetry 08/04/16 08/04/16 08/04/16 06:00 06:30 07:00 Temperature Pulse Rate 79 68 73 Pulse Rate [ From Monitor] Respiratory 20 16 18 Rate Blood Pressure 135/60 116/47 119/55 O2 Sat by Pulse 99 98 98 Oximetry 08/04/16 08/04/16 07:30 08:00 Temperature 99.4 F Pulse Rate 71 75 Pulse Rate [ 76 From Monitor] Respiratory 16 16 Rate Blood Pressure 123/49 114/53 O2 Sat by Pulse 99 100 Oximetry Constitutional: no acute distress, other (intubated, deep stupor) Eyes: other (pupils are equal, very slowly reactive) ENT: other (he continued position at 23) Neck: supple, no JVD Ascultation: Bilateral: clear, diminished breath sounds Gastrointestinal: normoactive bowel sounds, non-distended Integumentary: normal Extremities: no cyanosis, no edema Neurologic: other (no changes) CBC and BMP: 08/03/16 07:05 08/04/16 06:00 ABG, PT/INR, D-dimer: ABG POC ABG pH 7.376 (7.35-7.45) 08/04/16 04:48 POC ABG pCO2 38.4 (35-45) 08/04/16 04:48 POC ABG pO2 84 (80-105) 08/04/16 04:48 POC ABG HCO3 22.5 08/04/16 04:48 POC ABG Total CO2 24 08/04/16 04:48 POC ABG O2 Sat 96 08/04/16 04:48 PT/INR, D-dimer PT 15.8 Sec. (12.2-14.9) H 07/31/16 00:13 INR 1.20 (0.87-1.13) H 07/31/16 00:13 Abnormal lab findings: Abnormal Labs 07/31/16 07/31/16 07/31/16 08:39 10:07 12:07 WBC RBC Hgb Hct MCV MCH MCHC RDW Plt Count Lymph % (Auto) [place] % (Auto) Lymph # [place] # Seg Neutrophils % Seg Neuts % (Manual) Lymphocytes % (Manual) Seg Neutrophils # Man POC ABG pH POC ABG pCO2 POC ABG pO2 Sodium Carbon Dioxide BUN Creatinine Glucose POC Glucose 205 H 188 H Calcium Total Creatine Kinase 865 H CK-MB (CK-2) 5.9 H 07/31/16 07/31/16 07/31/16 16:19 19:58 23:53 WBC RBC Hgb Hct MCV MCH MCHC RDW Plt Count Lymph % (Auto) [place] % (Auto) Lymph # [place] # Seg Neutrophils % Seg Neuts % (Manual) Lymphocytes % (Manual) Seg Neutrophils # Man POC ABG pH POC ABG pCO2 POC ABG pO2 Sodium Carbon Dioxide BUN Creatinine Glucose POC Glucose 195 H 147 H 160 H Calcium Total Creatine Kinase CK-MB (CK-2) 08/01/16 08/01/16 08/01/16 04:18 04:42 07:45 WBC 14.8 H RBC Hgb 10.7 L Hct 34.9 L MCV 82 L MCH 25 L MCHC 31 L RDW 19.1 H Plt Count Lymph % (Auto) [place] % (Auto) Lymph # [place] # Seg Neutrophils % Seg Neuts % (Manual) 80.0 H Lymphocytes % (Manual) 12.0 L Seg Neutrophils # Man 11.8 H POC ABG pH POC ABG pCO2 33.4 L POC ABG pO2 66 L Sodium Carbon Dioxide BUN Creatinine Glucose POC Glucose 225 H Calcium Total Creatine Kinase CK-MB (CK-2) 08/01/16 08/01/16 08/01/16 07:45 10:09 10:59 WBC RBC Hgb Hct MCV MCH MCHC RDW Plt Count Lymph % (Auto) [place] % (Auto) Lymph # [place] # Seg Neutrophils % Seg Neuts % (Manual) Lymphocytes % (Manual) Seg Neutrophils # Man POC ABG pH POC ABG pCO2 POC ABG pO2 Sodium Carbon Dioxide BUN 29 H Creatinine Glucose 233 H POC Glucose 266 H 318 H Calcium 7.6 L Total Creatine Kinase CK-MB (CK-2) 08/01/16 08/01/16 08/01/16 14:24 17:56 21:21 WBC RBC Hgb Hct MCV MCH MCHC RDW Plt Count Lymph % (Auto) [place] % (Auto) Lymph # [place] # Seg Neutrophils % Seg Neuts % (Manual) Lymphocytes % (Manual) Seg Neutrophils # Man POC ABG pH POC ABG pCO2 POC ABG pO2 Sodium Carbon Dioxide BUN Creatinine Glucose POC Glucose 298 H 239 H 203 H Calcium Total Creatine Kinase CK-MB (CK-2) 08/02/16 08/02/16 08/02/16 02:05 03:55 05:38 WBC RBC Hgb Hct MCV MCH MCHC RDW Plt Count Lymph % (Auto) [place] % (Auto) Lymph # [place] # Seg Neutrophils % Seg Neuts % (Manual) Lymphocytes % (Manual) Seg Neutrophils # Man POC ABG pH 7.460 H POC ABG pCO2 31.2 L POC ABG pO2 71 L Sodium Carbon Dioxide BUN Creatinine Glucose POC Glucose 248 H 253 H Calcium Total Creatine Kinase CK-MB (CK-2) 08/02/16 08/02/16 08/02/16 09:11 09:44 09:44 WBC RBC 3.62 L Hgb 9.4 L Hct 29.1 L MCV 80 L MCH 26 L MCHC RDW 18.7 H Plt Count Lymph % (Auto) [place] % (Auto) 9.2 H Lymph # [place] # 1.0 H Seg Neutrophils % 72.0 H Seg Neuts % (Manual) Lymphocytes % (Manual) Seg Neutrophils # Man POC ABG pH POC ABG pCO2 POC ABG pO2 Sodium 135 L Carbon Dioxide 21 L BUN 42 H Creatinine Glucose 248 H POC Glucose 306 H Calcium 7.6 L Total Creatine Kinase CK-MB (CK-2) 08/02/16 08/02/16 08/02/16 15:53 17:33 21:39 WBC RBC Hgb Hct MCV MCH MCHC RDW Plt Count Lymph % (Auto) [place] % (Auto) Lymph # [place] # Seg Neutrophils % Seg Neuts % (Manual) Lymphocytes % (Manual) Seg Neutrophils # Man POC ABG pH POC ABG pCO2 POC ABG pO2 Sodium Carbon Dioxide BUN Creatinine Glucose POC Glucose 205 H 250 H 282 H Calcium Total Creatine Kinase CK-MB (CK-2) 08/03/16 08/03/16 08/03/16 02:28 05:47 07:05 WBC RBC 3.32 L Hgb 8.4 L Hct 26.5 L MCV 80 L MCH 25 L MCHC RDW 18.7 H Plt Count 112 L Lymph % (Auto) 12.5 L [place] % (Auto) 10.2 H Lymph # 1.0 L [place] # Seg Neutrophils % 75.9 H Seg Neuts % (Manual) Lymphocytes % (Manual) Seg Neutrophils # Man POC ABG pH POC ABG pCO2 POC ABG pO2 Sodium Carbon Dioxide BUN Creatinine Glucose POC Glucose 317 H 253 H Calcium Total Creatine Kinase CK-MB (CK-2) 08/03/16 08/03/16 08/03/16 07:05 09:50 14:07 WBC RBC Hgb Hct MCV MCH MCHC RDW Plt Count Lymph % (Auto) [place] % (Auto) Lymph # [place] # Seg Neutrophils % Seg Neuts % (Manual) Lymphocytes % (Manual) Seg Neutrophils # Man POC ABG pH POC ABG pCO2 POC ABG pO2 Sodium 132 L Carbon Dioxide 20 L BUN 42 H Creatinine Glucose 243 H POC Glucose 332 H 345 H Calcium 6.8 L Total Creatine Kinase CK-MB (CK-2) 08/03/16 08/03/16 08/04/16 17:38 21:36 02:18 WBC RBC Hgb Hct MCV MCH MCHC RDW Plt Count Lymph % (Auto) [place] % (Auto) Lymph # [place] # Seg Neutrophils % Seg Neuts % (Manual) Lymphocytes % (Manual) Seg Neutrophils # Man POC ABG pH POC ABG pCO2 POC ABG pO2 Sodium Carbon Dioxide BUN Creatinine Glucose POC Glucose 262 H 260 H 256 H Calcium Total Creatine Kinase CK-MB (CK-2) 08/04/16 08/04/16 05:41 06:00 WBC RBC Hgb Hct MCV MCH MCHC RDW Plt Count Lymph % (Auto) [place] % (Auto) Lymph # [place] # Seg Neutrophils % Seg Neuts % (Manual) Lymphocytes % (Manual) Seg Neutrophils # Man POC ABG pH POC ABG pCO2 POC ABG pO2 Sodium Carbon Dioxide BUN 34 H Creatinine 0.7 L Glucose 237 H POC Glucose 265 H Calcium 7.9 L D Total Creatine Kinase CK-MB (CK-2)
--- NOTE | 2016-08-04 09:04 | XRay Report ---
Single view chest: Compared to 08/03/16. History: Followup of respiratory bone failure. Findings: Borderline cardiomegaly. The trachea is midline. Stable support system. No consolidation. Bibasilar infiltrate/atelectasis. No significant interval change. Impression: No significant interval change.
[2016-08-04] MEDS: LOVENOX SUB-Q SCH (10:17)
[2016-08-04] MEDS: PEPCID PO SCH ×2 (10:17→22:59)
[2016-08-04] MEDS: LEVEMIR SUB-Q SCH (10:18)
[2016-08-04] MEDS: ASPIRIN PO SCH (11:00)
[2016-08-04] MEDS ORDERED: LEVEMIR SUB-Q ONE (11:00)
--- NOTE | 2016-08-04 11:06 | Progress Note ---
Assessment and Plan 76 YO M Hx HTN/HLD/DM2 present w/ AMS on 07/30 found face down on his bed unresponsive found to have acute resp failure s/p intubaton, initial blood sugar was 60, shock/hypotensive. CTH neg. decreased Ca/pO2 and elevated WBC, BUN , and AST/ALT mildly. On exam pt w/ depressed level of arousal stuporous, poor attention/concentration , paucity of speech, not following midline/peripheral commands w/ initial no clear movement in UE and LE triple flexion but also ? ? LLE withdrawal superimposed. On 08/04 exam MS stable still not following commands but purposeful movements localizing pain throughout. I suspect toxic metabolic infectious derangement as the etiology for neurologic decompensation but MRI Brain also reveals L > R cortical parieto-temporal acute ischemia likely 2/2 hypoperfusion from shock. EEG also mod nonspecific diffuse cerebral dysfunction L > R w/ triphasics but no IEDs/Sz Recommendations: 1. Check serum TSH and correct as necessary 3. Cont Infectious work up/medical management for UTI, PNA, cellulitis, bacteremia, etc. 4. Avoid hyponatremia,o/hyper-calcemia, hypo/hyperglycemia, acidosis, hypoxia/ hypoxemia, hypercarbia/hypercapnia 5. Avoid institution of any new psychoactive medications (e.g. antihistamines, anticholinergics, BZD, hypnotics, opiates) as able unless low doses of low potency antipsychotic needed for behavioral issues complicating medical care 6. Cont ICU care to keep MAPs > 65 @ least 7. Thiamine/Folate/CIWA protocol accordingly for any hx obtained to suggest EtOH withdrawal 8. Cont home meds-there is no neurologic indication to change 9. Specific neuro prognosis is limited @ this time as although MRI reveals b/l cortical cerebral ischemia, Pt's neuro exam with regard to purposeful movements has distinctly improved. He does not therefore have definite poor neuro prognosis. 10. For any further recs, pls contact neuro fire information officer as I am away until Sunday August 14, 2016 8 AM Subjective Date of service: 08/04/16 Principal diagnosis: acute respiratory failure Interval history: MRI completed EEG completed Objective - Vital Sign Vital Signs - 12hr 08/03/16 08/03/16 08/03/16 23:30 23:52 23:55 Temperature Pulse Rate 88 86 Pulse Rate [ 86 From Monitor] Respiratory 22 20 20 Rate Blood Pressure 124/65 124/65 O2 Sat by Pulse 99 100 Oximetry 08/04/16 08/04/16 08/04/16 00:00 00:30 01:00 Temperature 99.8 F H Pulse Rate 85 74 87 Pulse Rate [ From Monitor] Respiratory 20 18 20 Rate Blood Pressure 111/56 116/59 126/60 O2 Sat by Pulse 100 99 Oximetry 08/04/16 08/04/16 08/04/16 01:30 02:00 02:30 Temperature Pulse Rate 84 96 H 87 Pulse Rate [ From Monitor] Respiratory 21 23 Rate Blood Pressure 120/57 120/57 121/53 O2 Sat by Pulse 99 99 Oximetry 08/04/16 08/04/16 08/04/16 03:00 03:30 03:31 Temperature 99.8 F H Pulse Rate 81 83 Pulse Rate [ From Monitor] Respiratory 22 17 Rate Blood Pressure 118/53 133/64 O2 Sat by Pulse 98 99 Oximetry 08/04/16 08/04/16 08/04/16 04:00 04:30 04:31 Temperature Pulse Rate 89 84 Pulse Rate [ 82 From Monitor] Respiratory 30 H 20 21 Rate Blood Pressure 128/56 129/48 O2 Sat by Pulse 99 98 99 Oximetry 08/04/16 08/04/16 08/04/16 04:38 05:00 05:30 Temperature Pulse Rate 84 80 78 Pulse Rate [ From Monitor] Respiratory 20 23 Rate Blood Pressure 129/48 127/52 123/56 O2 Sat by Pulse 99 99 99 Oximetry 08/04/16 08/04/16 08/04/16 06:00 06:30 07:00 Temperature Pulse Rate 79 68 73 Pulse Rate [ From Monitor] Respiratory 20 16 18 Rate Blood Pressure 135/60 116/47 119/55 O2 Sat by Pulse 99 98 98 Oximetry 08/04/16 08/04/16 08/04/16 07:30 08:00 08:54 Temperature 99.4 F Pulse Rate 71 75 75 Pulse Rate [ 76 From Monitor] Respiratory 16 16 Rate Blood Pressure 123/49 114/53 115/52 O2 Sat by Pulse 99 100 100 Oximetry - General Apperance Constitutional: acutely ill, chronically ill - EENT EENT: ATNC, PERRL, mucous membranes dry, hearing intact - Respiratory Respiratory: chest non-tender, normal breath sounds, decreased breath sounds - Cardiovascular Cardiovascular: regular rate Extremities: no peripheral edema bilat, no clubbing, cyanosis, no inflammation, no ischemia or petechiae - Gastrointestinal Gastrointestinal: normoactive bowel sounds, soft, non-distended - Integumentary Integumentary: normal - Neurologic Cranial nerve examination: PERRL, V1/V2/V3 grossly intact, face symmetric, intact, Intact Vestibulo-ocular r, intact corneal reflex Speech examination: other (nos peech not following commands) Detailed motor examination: grossly full strength in, other (withdrawing from pain throughout) Motor examination - right side: 4/5: biceps, triceps, wrist flexion, wrist extension, strategic solutions consultant, hip flexors, knee extensors, dorsiflexion, toe extension (EHL) , plantarflexion Motor examination - left side: 4/5: biceps, triceps, wrist flexion, wrist extension, strategic solutions consultant, hip flexors, knee extensors, dorsiflexion, toe extension (EHL) , plantarflexion Detailed sensory examination: intact, pain - Musculoskeletal Musculoskeletal: no fluid collection, no pain, normal range of motion - Laboratory Findings CBC and BMP: 08/03/16 07:05 08/04/16 06:00 Abnormal Lab Findings: Abnormal Labs 07/31/16 07/31/16 07/31/16 08:39 10:07 12:07 WBC RBC Hgb Hct MCV MCH MCHC RDW Plt Count Lymph % (Auto) Bowie % (Auto) Lymph # [place] # Seg Neutrophils % Seg Neuts % (Manual) Lymphocytes % (Manual) Seg Neutrophils # Man POC ABG pH POC ABG pCO2 POC ABG pO2 Sodium Carbon Dioxide BUN Creatinine Glucose POC Glucose 205 H 188 H Calcium Total Creatine Kinase 865 H CK-MB (CK-2) 5.9 H 07/31/16 07/31/16 07/31/16 16:19 19:58 23:53 WBC RBC Hgb Hct MCV MCH MCHC RDW Plt Count Lymph % (Auto) [place] % (Auto) Lymph # [place] # Seg Neutrophils % Seg Neuts % (Manual) Lymphocytes % (Manual) Seg Neutrophils # Man POC ABG pH POC ABG pCO2 POC ABG pO2 Sodium Carbon Dioxide BUN Creatinine Glucose POC Glucose 195 H 147 H 160 H Calcium Total Creatine Kinase CK-MB (CK-2) 08/01/16 08/01/16 08/01/16 04:18 04:42 07:45 WBC 14.8 H RBC Hgb 10.7 L Hct 34.9 L MCV 82 L MCH 25 L MCHC 31 L RDW 19.1 H Plt Count Lymph % (Auto) [place] % (Auto) Lymph # [place] # Seg Neutrophils % Seg Neuts % (Manual) 80.0 H Lymphocytes % (Manual) 12.0 L Seg Neutrophils # Man 11.8 H POC ABG pH POC ABG pCO2 33.4 L POC ABG pO2 66 L Sodium Carbon Dioxide BUN Creatinine Glucose POC Glucose 225 H Calcium Total Creatine Kinase CK-MB (CK-2) 08/01/16 08/01/16 08/01/16 07:45 10:09 10:59 WBC RBC Hgb Hct MCV MCH MCHC RDW Plt Count Lymph % (Auto) [place]ie % (Auto) Lymph # [place] # Seg Neutrophils % Seg Neuts % (Manual) Lymphocytes % (Manual) Seg Neutrophils # Man POC ABG pH POC ABG pCO2 POC ABG pO2 Sodium Carbon Dioxide BUN 29 H Creatinine Glucose 233 H POC Glucose 266 H 318 H Calcium 7.6 L Total Creatine Kinase CK-MB (CK-2) 08/01/16 08/01/16 08/01/16 14:24 17:56 21:21 WBC RBC Hgb Hct MCV MCH MCHC RDW Plt Count Lymph % (Auto) [place] % (Auto) Lymph # [place] # Seg Neutrophils % Seg Neuts % (Manual) Lymphocytes % (Manual) Seg Neutrophils # Man POC ABG pH POC ABG pCO2 POC ABG pO2 Sodium Carbon Dioxide BUN Creatinine Glucose POC Glucose 298 H 239 H 203 H Calcium Total Creatine Kinase CK-MB (CK-2) 08/02/16 08/02/16 08/02/16 02:05 03:55 05:38 WBC RBC Hgb Hct MCV MCH MCHC RDW Plt Count Lymph % (Auto) [place]ie % (Auto) Lymph # [place] # Seg Neutrophils % Seg Neuts % (Manual) Lymphocytes % (Manual) Seg Neutrophils # Man POC ABG pH 7.460 H POC ABG pCO2 31.2 L POC ABG pO2 71 L Sodium Carbon Dioxide BUN Creatinine Glucose POC Glucose 248 H 253 H Calcium Total Creatine Kinase CK-MB (CK-2) 08/02/16 08/02/16 08/02/16 09:11 09:44 09:44 WBC RBC 3.62 L Hgb 9.4 L Hct 29.1 L MCV 80 L MCH 26 L MCHC RDW 18.7 H Plt Count Lymph % (Auto) Bowie % (Auto) 9.2 H Lymph # [place]ie # 1.0 H Seg Neutrophils % 72.0 H Seg Neuts % (Manual) Lymphocytes % (Manual) Seg Neutrophils # Man POC ABG pH POC ABG pCO2 POC ABG pO2 Sodium 135 L Carbon Dioxide 21 L BUN 42 H Creatinine Glucose 248 H POC Glucose 306 H Calcium 7.6 L Total Creatine Kinase CK-MB (CK-2) 08/02/16 08/02/16 08/02/16 15:53 17:33 21:39 WBC RBC Hgb Hct MCV MCH MCHC RDW Plt Count Lymph % (Auto) [place] % (Auto) Lymph # [place] # Seg Neutrophils % Seg Neuts % (Manual) Lymphocytes % (Manual) Seg Neutrophils # Man POC ABG pH POC ABG pCO2 POC ABG pO2 Sodium Carbon Dioxide BUN Creatinine Glucose POC Glucose 205 H 250 H 282 H Calcium Total Creatine Kinase CK-MB (CK-2) 08/03/16 08/03/16 08/03/16 02:28 05:47 07:05 WBC RBC 3.32 L Hgb 8.4 L Hct 26.5 L MCV 80 L MCH 25 L MCHC RDW 18.7 H Plt Count 112 L Lymph % (Auto) 12.5 L Bowie % (Auto) 10.2 H Lymph # 1.0 L Bowie # Seg Neutrophils % 75.9 H Seg Neuts % (Manual) Lymphocytes % (Manual) Seg Neutrophils # Man POC ABG pH POC ABG pCO2 POC ABG pO2 Sodium Carbon Dioxide BUN Creatinine Glucose POC Glucose 317 H 253 H Calcium Total Creatine Kinase CK-MB (CK-2) 08/03/16 08/03/16 08/03/16 07:05 09:50 14:07 WBC RBC Hgb Hct MCV MCH MCHC RDW Plt Count Lymph % (Auto) [place] % (Auto) Lymph # [place] # Seg Neutrophils % Seg Neuts % (Manual) Lymphocytes % (Manual) Seg Neutrophils # Man POC ABG pH POC ABG pCO2 POC ABG pO2 Sodium 132 L Carbon Dioxide 20 L BUN 42 H Creatinine Glucose 243 H POC Glucose 332 H 345 H Calcium 6.8 L Total Creatine Kinase CK-MB (CK-2) 08/03/16 08/03/16 08/04/16 17:38 21:36 02:18 WBC RBC Hgb Hct MCV MCH MCHC RDW Plt Count Lymph % (Auto) [place] % (Auto) Lymph # [place] # Seg Neutrophils % Seg Neuts % (Manual) Lymphocytes % (Manual) Seg Neutrophils # Man POC ABG pH POC ABG pCO2 POC ABG pO2 Sodium Carbon Dioxide BUN Creatinine Glucose POC Glucose 262 H 260 H 256 H Calcium Total Creatine Kinase CK-MB (CK-2) 08/04/16 08/04/16 08/04/16 05:41 06:00 10:20 WBC RBC Hgb Hct MCV MCH MCHC RDW Plt Count Lymph % (Auto) [place] % (Auto) Lymph # [place] # Seg Neutrophils % Seg Neuts % (Manual) Lymphocytes % (Manual) Seg Neutrophils # Man POC ABG pH POC ABG pCO2 POC ABG pO2 Sodium Carbon Dioxide BUN 34 H Creatinine 0.7 L Glucose 237 H POC Glucose 265 H 266 H Calcium 7.9 L D Total Creatine Kinase CK-MB (CK-2)
[2016-08-04] MEDS: VANCOMYCIN 1,500 MG in NACL 0.9% 500 ML 500 ML IV SCH (13:57)
--- NOTE | 2016-08-04 14:13 | Consultation ---
History of Present Illness - Reason for Consult Consult date: 08/04/16 Sepsis Requesting physician: NICKOLAS YUAN - History of Present Illness Mr. Gray is a 76-year-old man with multiple medical problems who was brought in to the ED from home after being found down with decreased responsiveness by his son. Chest radiograph showed bilateral infiltrates or atelectasis and the patient was intubated while in the ED. Head CT showed no evidence of hemorrhage. Subsequent MRI brain showed [id number] cortical ischemia bilaterally at the temporal and parietal lobes. EEG showed moderate- severe cerebral dysfunction. Cultures of blood and urine are negative to date. He remains on empiric Vancomycin and Zosyn. ID consultation is requested for further infectious work-up of altered sensorium. Past History Past Medical History: diabetes, hypertension, other (AMS limits direct hx) Past Surgical History: Other (AMS limits direct hx) Social history: other Family history: other (AMS limits direct hx) Medications and Allergies Allergies Allergy/AdvReac Type Severity Reaction Status Date / Time No Known Allergies Allergy Verified 07/31/16 02:37 Home Medications Medication Instructions Recorded Confirmed Last Taken Type Aspirin [Aspirin BABY CHEW TAB] 1 tab PO DAILY 07/31/16 07/31/16 Unknown History Carvedilol [Coreg] 25 mg PO BID 07/31/16 07/31/16 Unknown History Hydrochlorothiazide [HCTZ] 25 mg PO QDAY 07/31/16 07/31/16 Unknown History Lisinopril [Zestril TAB] 1 tab PO DAILY 07/31/16 07/31/16 Unknown History Pravastatin (Nf) [Pravachol] 40 mg PO QHS 07/31/16 07/31/16 Unknown History Tamsulosin [Flomax] 1 cap PO DAILY 07/31/16 07/31/16 Unknown History amLODIPine [Norvasc] 10 mg PO DAILY 07/31/16 07/31/16 Unknown History hydrALAZINE [Apresoline] 25 mg PO Q8HR 07/31/16 07/31/16 Unknown History Active Meds: Active Medications Acetaminophen (Tylenol) 650 mg FEEDTUBE Q6H PRN PRN Reason: Pain, Mild (1-3) Last Admin: 08/03/16 08:02 Dose: 650 mg Lipase/Protease/Amylase (Pancreaze Dr 10,500 Unit) 1 each FEEDTUBE PRN PRN PRN Reason: For Clogged Feeding Tube Aspirin (Aspirin) 325 mg PO QDAY [facility] Last Admin: 08/04/16 11:00 Dose: 325 mg Atorvastatin Calcium (Lipitor) 40 mg PO QHS [facility] Last Admin: 08/03/16 21:57 Dose: 40 mg Dextrose (D50w (25gm)) 50 ml IV PRN PRN PRN Reason: Hypoglycemia Enoxaparin Sodium (Lovenox) 40 mg SUB-Q QDAY@1000 SANIA Last Admin: 08/04/16 10:17 Dose: 40 mg Famotidine (Pepcid) 20 mg PO BID [facility] Last Admin: 08/04/16 10:17 Dose: 20 mg Hydrophilic Ointment (Vaseline Lip Therapy) 1 applic TP Q2HR PRN PRN Reason: Dry Lips Lorazepam 100 mg/ Sodium Chloride/ Miscellaneous Information 100 mls @ 1 mls/ hr IV TITR SANIA; 1 MG/HR PRN Reason: Protocol Last Titration: 07/31/16 07:00 Dose: 0 mg/hr, 0 mls/hr Sodium Chloride (Nacl 0.45% 1000 Ml) 1,000 mls @ 42 mls/hr IV DIRECT [facility] Last Admin: 08/04/16 04:11 Dose: 75 mls/hr Piperacillin Sod/Tazobactam Sod (Zosyn/Ns 4.5gm/100ml) 4.5 gm in 100 mls @ 200 mls/hr IV Q8H [facility]IA PRN Reason: Protocol Stop: 08/07/16 12:59 Last Admin: 08/04/16 12:52 Dose: 200 mls/hr Vancomycin HCl 1,500 mg/ (Sodium Chloride) 530 mls @ 333.333 mls/hr IV Q24H [facility] Stop: 08/08/16 15:36 Last Admin: 08/04/16 13:57 Dose: 333.333 mls/hr Insulin Detemir (Levemir) 25 units SUB-Q DAILY [facility] Insulin Human Regular (Novolin R) 0 units SUB-Q Q4HR [facility]IA PRN Reason: Protocol Last Admin: 08/04/16 10:30 Dose: 4 units Multi-Ingred Cream/Lotion/Oil/Oint (Artificial Tears Ophth Oint) 1 applic OU Q4HR PRN PRN Reason: Dry Eye(s) Ondansetron HCl (Zofran) 4 mg IV Q8H PRN PRN Reason: N/V unrelieved by Reglan Simple Syrup (Simple Syrup) 15 ml FEEDTUBE PRN PRN PRN Reason: Hypoglycemia Simple Syrup (Simple Syrup) 30 ml FEEDTUBE PRN PRN PRN Reason: Hypoglycemia Sodium Bicarbonate (Sodium Bicarbonate) 325 mg FEEDTUBE PRN PRN PRN Reason: For Clogged Feeding Tube Sodium Chloride (Nacl 0.9% 500 Ml) 1 ml IV DIRECT SANIA Vancomycin HCl (Vancomycin Pharmacy To Dose) 1 each IV PKCONSULT SANIA PRN Reason: Protocol Stop: 08/07/16 11:01 Review of Systems ROS unobtainable: due to endotracheal tube Physical Examination - Constitutional Vitals: Vital Signs Temp Pulse Resp BP Pulse Ox 98.6 F 86 19 125/61 100 08/04/16 12:00 08/04/16 12:49 08/04/16 12:00 08/04/16 12:49 08/04/16 12:49 Temperature -Last 24 Hours Temperature 98.6 F Temperature 99.4 F Temperature 99.8 F Temperature 99.8 F Temperature 99.4 F Temperature 98.5 F General appearance: Present: no acute distress, well-nourished, other (intubated , FiO2 35%) - EENT Eyes: Absent: scleral icterus, conjunctival injection ENT: other (NG tube) - Respiratory Respiratory effort: normal Respiratory: bilateral: CTA, negative: rales, rhonchi - Cardiovascular Rhythm: regular Heart Sounds: Present: S1 & S2 - Extremities Extremity abnormal: edema (trace all extremities distally) - Abdominal General gastrointestinal: Present: soft, non-distended, normal bowel sounds - Rectal Rectal Exam: other (rectal tube with smal amount liquid stool) - Integumentary Integumentary: Absent: jaundice, rash - Psychiatric Psychiatric: other (minimal level of responsiveness) Results - Labs CBC & Chem 7: 08/03/16 07:05 08/04/16 06:00 Labs: Abnormal lab results 08/03/16 08/03/16 08/03/16 Range/Units 09:50 14:07 17:38 BUN (9-20) mg/dL Creatinine (0.8-1.5) mg/dL Glucose (75-100) mg/dL POC Glucose 332 H 345 H 262 H (70-105) Calcium (8.4-10.2) mg/dL 08/03/16 08/04/16 08/04/16 Range/Units 21:36 02:18 05:41 BUN (9-20) mg/dL Creatinine (0.8-1.5) mg/dL Glucose (75-100) mg/dL POC Glucose 260 H 256 H 265 H (70-105) Calcium (8.4-10.2) mg/dL 08/04/16 08/04/16 Range/Units 06:00 10:20 BUN 34 H (9-20) mg/dL Creatinine 0.7 L (0.8-1.5) mg/dL Glucose 237 H (75-100) mg/dL POC Glucose 266 H (70-105) Calcium 7.9 L D (8.4-10.2) mg/dL Microbiology 08/01/16 13:18 Peripheral/Venous Blood Culture - Preliminary NO GROWTH AFTER 72 HOURS 08/01/16 10:57 Peripheral/Venous Blood Culture - Preliminary NO GROWTH AFTER 72 HOURS 08/03/16 Unknown Tracheal Aspirate Sputum Culture - Preliminary 07/30/16 23:34 Tracheal Aspirate Sputum Culture - Final - Imaging and Cardiology Chest x-ray: report reviewed (atelectasis vs. infiltrates both bases) CT Scan - head: report reviewed MRI - head: report reviewed Assessment and Plan - Patient Problems (1) Altered mental status Current Visit: Yes Status: Acute Qualifiers: Altered mental status type: stupor Coma depth: C Coma timing: C Qualified Code(s): R40.1 - Stupor Plan to address problem: 1. Recommend LP to assay for opening pressure, WNV, HSV, etc. 2. Will add empiric antiviral coverage. 3. Continue empiric antibiotic coverage pending further blood and urine culture data.
[2016-08-04] MEDS ORDERED: SODIUM BICARBONATE FEEDTUBE PRN (14:59)
[2016-08-04] MEDS ORDERED: SIMPLE SYRUP FEEDTUBE PRN ×2 (14:59)
[2016-08-04] MEDS ORDERED: PANCREAZE DR 10,500 UNIT FEEDTUBE PRN (14:59)
--- NOTE | 2016-08-04 16:12 | Progress Note ---
Subjective Date of service: 08/04/16 Principal diagnosis: acute respiratory failure Interval history: 76-year-old man with a history of hypertension, diabetes, hyperlipidemia, BPH, was brought to the emergency room because son found him on the floor with unresponsiveness. Patient was intubated in the emergency room. 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 since admission - will add aspirin and lipitor - neuro following Elevated LFTs - Obtained ultrasound of the abdomen - US showed cholelithiasis without cholecystitis - monitor LFT as he will be on statin Hypertension - cont monitor, provide Bp meds with TF Diabetes - SSI Hyperlipidemia - start statin BPH - monitor urine output SIRS - pt has elevated white count and tachycardia - cont zosyn and follow blood cx, cxr showed atelectasis Prognosis guarded Subjective: Patient is unresponsive, intubated Objective - Constitutional Vitals: Vital Signs - 12hr 08/04/16 08/04/16 08/04/16 04:30 04:31 04:38 Temperature Pulse Rate 84 84 Pulse Rate [ 82 From Monitor] Respiratory 20 21 Rate Blood Pressure 129/48 129/48 O2 Sat by Pulse 98 99 99 Oximetry 08/04/16 08/04/16 08/04/16 05:00 05:30 06:00 Temperature Pulse Rate 80 78 79 Pulse Rate [ From Monitor] Respiratory 20 23 20 Rate Blood Pressure 127/52 123/56 135/60 O2 Sat by Pulse 99 99 99 Oximetry 08/04/16 08/04/16 08/04/16 06:30 07:00 07:30 Temperature Pulse Rate 68 73 71 Pulse Rate [ From Monitor] Respiratory 16 18 16 Rate Blood Pressure 116/47 119/55 123/49 O2 Sat by Pulse 98 98 99 Oximetry 08/04/16 08/04/16 08/04/16 08:00 08:30 08:54 Temperature 99.4 F Pulse Rate 75 72 75 Pulse Rate [ 76 From Monitor] Respiratory 16 18 Rate Blood Pressure 114/53 115/52 115/52 O2 Sat by Pulse 100 100 100 Oximetry 08/04/16 08/04/16 08/04/16 09:00 09:30 10:00 Temperature Pulse Rate 85 85 84 Pulse Rate [ From Monitor] Respiratory 17 20 19 Rate Blood Pressure 118/55 127/52 124/58 O2 Sat by Pulse 100 98 99 Oximetry 08/04/16 08/04/16 08/04/16 10:30 11:00 11:30 Temperature Pulse Rate 87 86 Pulse Rate [ From Monitor] Respiratory 30 H 20 19 Rate Blood Pressure 124/58 140/65 140/63 O2 Sat by Pulse 98 98 100 Oximetry 08/04/16 08/04/16 12:00 12:49 Temperature 98.6 F Pulse Rate 91 H 86 Pulse Rate [ From Monitor] Respiratory 19 Rate Blood Pressure 129/63 125/61 O2 Sat by Pulse 100 100 Oximetry General appearance: Present: other (unresponsive and intubated) - EENT Eyes: PERRL - Neck Neck: supple, no masses or JVD - Respiratory Respiratory: bilateral: CTA - Cardiovascular Rhythm: regular Heart Sounds: Present: S1 & S2 Extremities: No edema - Gastrointestinal General gastrointestinal: Present: soft. Absent: hepatomegaly, splenomegaly - Neurologic Neurologic: other (unable to evaluate) - Labs CBC & Chem 7: 08/03/16 07:05 08/04/16 06:00 Labs: Abnormal lab results 08/03/16 08/03/16 08/03/16 Range/Units 09:50 14:07 17:38 BUN (9-20) mg/dL Creatinine (0.8-1.5) mg/dL Glucose (75-100) mg/dL POC Glucose 332 H 345 H 262 H (70-105) Calcium (8.4-10.2) mg/dL 08/03/16 08/04/16 08/04/16 Range/Units 21:36 02:18 05:41 BUN (9-20) mg/dL Creatinine (0.8-1.5) mg/dL Glucose (75-100) mg/dL POC Glucose 260 H 256 H 265 H (70-105) Calcium (8.4-10.2) mg/dL 08/04/16 08/04/16 08/04/16 Range/Units 06:00 10:20 14:20 BUN 34 H (9-20) mg/dL Creatinine 0.7 L (0.8-1.5) mg/dL Glucose 237 H (75-100) mg/dL POC Glucose 266 H 302 H (70-105) Calcium 7.9 L D (8.4-10.2) mg/dL
[2016-08-04] MEDS ORDERED: APRESOLINE IV PRN (17:13)
[2016-08-04] MEDS: ZOVIRAX IV SCH (20:27)
[2016-08-04] MEDS: NACL 0.9% IV SCH (20:27)
[2016-08-04] MEDS ORDERED: ZOVIRAX IV SCH (22:00)
[2016-08-05] MEDS: ZOSYN/NS 4.5GM/100ML 4.5 GM/100 ML VIAL IV SCH ×3 (05:30→22:11)
[2016-08-05 05:51] LABS: Hematocrit 30.1 % (35.5-45.6); Hemoglobin 9.5 gm/dl (11.8-15.2); Mean Corpuscular HGB Conc 32 % (32-34); Mean Corpuscular Volume 81 fl (84-94); Platelet Count 112 K/mm3 (140-440); Red Cell Distribution Width 19.1 % (13.2-15.2); White Blood Count 8.2 K/mm3 (4.5-11.0)
[2016-08-05] MEDS: ZOVIRAX IV SCH ×3 (06:00→22:12)
[2016-08-05] MEDS: NACL 0.9% IV SCH ×3 (06:00→22:12)
[2016-08-05 06:01] LABS: Mean Corpuscular Hemoglobin 26 pg (28-32)
[2016-08-05 06:10] LABS: Alanine Aminotransferase 81 units/L (7-56); Albumin 2.2 g/dL (3.9-5); Albumin/Globulin Ratio 0.6 %; Alkaline Phosphatase 629 units/L (35-129); Anion Gap 14 mmol/L; BUN/Creatinine Ratio 38.57; Blood Urea Nitrogen 27 mg/dL (9-20); Calcium 8.3 mg/dL (8.4-10.2); Carbon Dioxide 27 mmol/L (22-30); Chloride 102.4 mmol/L (98-107); Glucose 212 mg/dL (75-100); Potassium 4.3 mmol/L (3.6-5.0); Sodium 139 mmol/L (137-145); Total Protein 5.9 g/dL (6.3-8.2)
[2016-08-05 06:23] LABS: ISTAT Base Excess 4; ISTAT HCO3 27.6; ISTAT PCO2 38.1 (35-45); ISTAT PH 7.469 (7.35-7.45); ISTAT PO2 109 (80-105); ISTAT SO2 99; ISTAT TCO2 29
--- NOTE | 2016-08-05 09:08 | XRay Report ---
Single view chest: Compared to 08/04/16. History: Follow up of respiratory failure. Findings: Normal cardiomediastinal silhouette. Stable support system. Bibasilar atelectasis. Normal CP angles. Impression: Bibasilar atelectasis.
[2016-08-05] MEDS: LEVEMIR SUB-Q SCH (10:12)
[2016-08-05] MEDS: PEPCID PO SCH ×2 (10:13→22:12)
[2016-08-05] MEDS: ASPIRIN PO SCH (10:13)
[2016-08-05] MEDS: LOVENOX SUB-Q SCH (10:13)
[2016-08-05] MEDS: NACL 0.45% 1000 ML 1,000 ML IV SCH (10:22)
--- NOTE | 2016-08-05 11:38 | Progress Note ---
Assessment and Plan - Patient Problems (1) Acute respiratory failure Current Visit: Yes Status: Acute Qualifiers: Respiratory failure complication: hypoxia Qualified Code(s): J96.01 - Acute respiratory failure with hypoxia (2) Altered mental status Current Visit: Yes Status: Acute Qualifiers: Altered mental status type: stupor Coma depth: C Coma timing: C Qualified Code(s): R40.1 - Stupor (3) Elevated LFTs Current Visit: Yes Status: Acute (4) Endotracheally intubated Current Visit: Yes Status: Acute (5) Obesity due to excess calories Current Visit: Yes Status: Acute Qualifiers: Obesity severity: O (6) Toxic encephalopathy Current Visit: Yes Status: Acute Subjective Principal diagnosis: acute respiratory failure Interval history: family at bedside still not following commands resists eyes being opened on cpap 5 PS8 Fio2 35% Objective Vital Signs - 12hr 08/05/16 08/05/16 08/05/16 00:00 00:07 00:30 Temperature 97.8 F Pulse Rate 95 H 95 H 85 Pulse Rate [ 88 From Monitor] Respiratory 25 H 19 Rate Blood Pressure 142/62 152/65 141/58 O2 Sat by Pulse 99 100 98 Oximetry 08/05/16 08/05/16 08/05/16 01:00 01:30 02:00 Temperature Pulse Rate 91 H 87 93 H Pulse Rate [ From Monitor] Respiratory 19 18 21 Rate Blood Pressure 147/55 151/58 149/58 O2 Sat by Pulse 98 97 97 Oximetry 08/05/16 08/05/16 08/05/16 02:30 03:00 03:30 Temperature Pulse Rate 87 86 85 Pulse Rate [ From Monitor] Respiratory 19 18 17 Rate Blood Pressure 149/57 149/57 136/56 O2 Sat by Pulse 97 98 98 Oximetry 08/05/16 08/05/16 08/05/16 03:54 04:00 04:58 Temperature 99.3 F Pulse Rate 92 H 117 H Pulse Rate [ From Monitor] Respiratory 18 24 Rate Blood Pressure 155/59 O2 Sat by Pulse 98 97 Oximetry 08/05/16 08/05/16 08/05/16 05:00 05:30 06:00 Temperature Pulse Rate 108 H 103 H 95 H Pulse Rate [ From Monitor] Respiratory 28 H 20 19 Rate Blood Pressure 149/63 158/71 143/63 O2 Sat by Pulse 97 99 99 Oximetry 08/05/16 08/05/16 08/05/16 06:30 07:00 07:30 Temperature Pulse Rate 98 H 97 H 94 H Pulse Rate [ From Monitor] Respiratory 13 20 16 Rate Blood Pressure 128/61 128/57 130/57 O2 Sat by Pulse 99 98 99 Oximetry 08/05/16 08/05/16 08/05/16 07:52 08:00 08:30 Temperature 99.2 F Pulse Rate 102 H 101 H 96 H Pulse Rate [ From Monitor] Respiratory 19 16 Rate Blood Pressure 130/57 140/62 140/62 O2 Sat by Pulse 100 100 100 Oximetry 08/05/16 08/05/16 08/05/16 09:00 09:10 09:30 Temperature Pulse Rate 94 H 98 H 95 H Pulse Rate [ From Monitor] Respiratory 16 15 16 Rate Blood Pressure 141/64 141/64 141/64 O2 Sat by Pulse 99 100 100 Oximetry 08/05/16 08/05/16 10:00 10:30 Temperature Pulse Rate 89 90 Pulse Rate [ From Monitor] Respiratory 16 12 Rate Blood Pressure 145/63 153/56 O2 Sat by Pulse 100 100 Oximetry Constitutional: no acute distress, other (intubated, deep stupor) Eyes: other (pupils are equal, very slowly reactive) ENT: other (he continued position at 23) Neck: supple, no JVD Ascultation: Bilateral: clear, diminished breath sounds Gastrointestinal: normoactive bowel sounds, non-distended Integumentary: normal Extremities: no cyanosis, no edema Neurologic: other (no changes) CBC and BMP: 08/05/16 05:00 08/05/16 05:00 ABG, PT/INR, D-dimer: ABG POC ABG pH 7.469 (7.35-7.45) H 08/05/16 05:19 POC ABG pCO2 38.1 (35-45) 08/05/16 05:19 POC ABG pO2 109 (80-105) H 08/05/16 05:19 POC ABG HCO3 27.6 08/05/16 05:19 POC ABG Total CO2 29 08/05/16 05:19 POC ABG O2 Sat 99 08/05/16 05:19 PT/INR, D-dimer PT 15.8 Sec. (12.2-14.9) H 07/31/16 00:13 INR 1.20 (0.87-1.13) H 07/31/16 00:13 Abnormal lab findings: Abnormal Labs 07/31/16 07/31/16 07/31/16 08:39 10:07 12:07 WBC RBC Hgb Hct MCV MCH MCHC RDW Plt Count Lymph % (Auto) [place] % (Auto) Lymph # [place] # Seg Neutrophils % Seg Neuts % (Manual) Lymphocytes % (Manual) Seg Neutrophils # Man POC ABG pH POC ABG pCO2 POC ABG pO2 Sodium Carbon Dioxide BUN Creatinine Glucose POC Glucose 205 H 188 H Calcium AST ALT Alkaline Phosphatase Total Creatine Kinase 865 H CK-MB (CK-2) 5.9 H Total Protein Albumin 07/31/16 07/31/16 07/31/16 16:19 19:58 23:53 WBC RBC Hgb Hct MCV MCH MCHC RDW Plt Count Lymph % (Auto) [place] % (Auto) Lymph # [place] # Seg Neutrophils % Seg Neuts % (Manual) Lymphocytes % (Manual) Seg Neutrophils # Man POC ABG pH POC ABG pCO2 POC ABG pO2 Sodium Carbon Dioxide BUN Creatinine Glucose POC Glucose 195 H 147 H 160 H Calcium AST ALT Alkaline Phosphatase Total Creatine Kinase CK-MB (CK-2) Total Protein Albumin 08/01/16 08/01/16 08/01/16 04:18 04:42 07:45 WBC 14.8 H RBC Hgb 10.7 L Hct 34.9 L MCV 82 L MCH 25 L MCHC 31 L RDW 19.1 H Plt Count Lymph % (Auto) [place] % (Auto) Lymph # [place] # Seg Neutrophils % Seg Neuts % (Manual) 80.0 H Lymphocytes % (Manual) 12.0 L Seg Neutrophils # Man 11.8 H POC ABG pH POC ABG pCO2 33.4 L POC ABG pO2 66 L Sodium Carbon Dioxide BUN Creatinine Glucose POC Glucose 225 H Calcium AST ALT Alkaline Phosphatase Total Creatine Kinase CK-MB (CK-2) Total Protein Albumin 08/01/16 08/01/16 08/01/16 07:45 10:09 10:59 WBC RBC Hgb Hct MCV MCH MCHC RDW Plt Count Lymph % (Auto) [place] % (Auto) Lymph # [place] # Seg Neutrophils % Seg Neuts % (Manual) Lymphocytes % (Manual) Seg Neutrophils # Man POC ABG pH POC ABG pCO2 POC ABG pO2 Sodium Carbon Dioxide BUN 29 H Creatinine Glucose 233 H POC Glucose 266 H 318 H Calcium 7.6 L AST ALT Alkaline Phosphatase Total Creatine Kinase CK-MB (CK-2) Total Protein Albumin 08/01/16 08/01/16 08/01/16 14:24 17:56 21:21 WBC RBC Hgb Hct MCV MCH MCHC RDW Plt Count Lymph % (Auto) [place] % (Auto) Lymph # [place] # Seg Neutrophils % Seg Neuts % (Manual) Lymphocytes % (Manual) Seg Neutrophils # Man POC ABG pH POC ABG pCO2 POC ABG pO2 Sodium Carbon Dioxide BUN Creatinine Glucose POC Glucose 298 H 239 H 203 H Calcium AST ALT Alkaline Phosphatase Total Creatine Kinase CK-MB (CK-2) Total Protein Albumin 08/02/16 08/02/16 08/02/16 02:05 03:55 05:38 WBC RBC Hgb Hct MCV MCH MCHC RDW Plt Count Lymph % (Auto) [place] % (Auto) Lymph # [place] # Seg Neutrophils % Seg Neuts % (Manual) Lymphocytes % (Manual) Seg Neutrophils # Man POC ABG pH 7.460 H POC ABG pCO2 31.2 L POC ABG pO2 71 L Sodium Carbon Dioxide BUN Creatinine Glucose POC Glucose 248 H 253 H Calcium AST ALT Alkaline Phosphatase Total Creatine Kinase CK-MB (CK-2) Total Protein Albumin 08/02/16 08/02/16 08/02/16 09:11 09:44 09:44 WBC RBC 3.62 L Hgb 9.4 L Hct 29.1 L MCV 80 L MCH 26 L MCHC RDW 18.7 H Plt Count Lymph % (Auto) [place] % (Auto) 9.2 H Lymph # [place] # 1.0 H Seg Neutrophils % 72.0 H Seg Neuts % (Manual) Lymphocytes % (Manual) Seg Neutrophils # Man POC ABG pH POC ABG pCO2 POC ABG pO2 Sodium 135 L Carbon Dioxide 21 L BUN 42 H Creatinine Glucose 248 H POC Glucose 306 H Calcium 7.6 L AST ALT Alkaline Phosphatase Total Creatine Kinase CK-MB (CK-2) Total Protein Albumin 08/02/16 08/02/16 08/02/16 15:53 17:33 21:39 WBC RBC Hgb Hct MCV MCH MCHC RDW Plt Count Lymph % (Auto) [place] % (Auto) Lymph # [place] # Seg Neutrophils % Seg Neuts % (Manual) Lymphocytes % (Manual) Seg Neutrophils # Man POC ABG pH POC ABG pCO2 POC ABG pO2 Sodium Carbon Dioxide BUN Creatinine Glucose POC Glucose 205 H 250 H 282 H Calcium AST ALT Alkaline Phosphatase Total Creatine Kinase CK-MB (CK-2) Total Protein Albumin 08/03/16 08/03/16 08/03/16 02:28 05:47 07:05 WBC RBC 3.32 L Hgb 8.4 L Hct 26.5 L MCV 80 L MCH 25 L MCHC RDW 18.7 H Plt Count 112 L Lymph % (Auto) 12.5 L [place] % (Auto) 10.2 H Lymph # 1.0 L [place] # Seg Neutrophils % 75.9 H Seg Neuts % (Manual) Lymphocytes % (Manual) Seg Neutrophils # Man POC ABG pH POC ABG pCO2 POC ABG pO2 Sodium Carbon Dioxide BUN Creatinine Glucose POC Glucose 317 H 253 H Calcium AST ALT Alkaline Phosphatase Total Creatine Kinase CK-MB (CK-2) Total Protein Albumin 08/03/16 08/03/16 08/03/16 07:05 09:50 14:07 WBC RBC Hgb Hct MCV MCH MCHC RDW Plt Count Lymph % (Auto) [place] % (Auto) Lymph # [place] # Seg Neutrophils % Seg Neuts % (Manual) Lymphocytes % (Manual) Seg Neutrophils # Man POC ABG pH POC ABG pCO2 POC ABG pO2 Sodium 132 L Carbon Dioxide 20 L BUN 42 H Creatinine Glucose 243 H POC Glucose 332 H 345 H Calcium 6.8 L AST ALT Alkaline Phosphatase Total Creatine Kinase CK-MB (CK-2) Total Protein Albumin 08/03/16 08/03/16 08/04/16 17:38 21:36 02:18 WBC RBC Hgb Hct MCV MCH MCHC RDW Plt Count Lymph % (Auto) [place] % (Auto) Lymph # [place] # Seg Neutrophils % Seg Neuts % (Manual) Lymphocytes % (Manual) Seg Neutrophils # Man POC ABG pH POC ABG pCO2 POC ABG pO2 Sodium Carbon Dioxide BUN Creatinine Glucose POC Glucose 262 H 260 H 256 H Calcium AST ALT Alkaline Phosphatase Total Creatine Kinase CK-MB (CK-2) Total Protein Albumin 08/04/16 08/04/16 08/04/16 05:41 06:00 10:20 WBC RBC Hgb Hct MCV MCH MCHC RDW Plt Count Lymph % (Auto) [place] % (Auto) Lymph # [place] # Seg Neutrophils % Seg Neuts % (Manual) Lymphocytes % (Manual) Seg Neutrophils # Man POC ABG pH POC ABG pCO2 POC ABG pO2 Sodium Carbon Dioxide BUN 34 H Creatinine 0.7 L Glucose 237 H POC Glucose 265 H 266 H Calcium 7.9 L D AST ALT Alkaline Phosphatase Total Creatine Kinase CK-MB (CK-2) Total Protein Albumin 08/04/16 08/04/16 08/04/16 14:20 17:31 21:52 WBC RBC Hgb Hct MCV MCH MCHC RDW Plt Count Lymph % (Auto) [place] % (Auto) Lymph # [place] # Seg Neutrophils % Seg Neuts % (Manual) Lymphocytes % (Manual) Seg Neutrophils # Man POC ABG pH POC ABG pCO2 POC ABG pO2 Sodium Carbon Dioxide BUN Creatinine Glucose POC Glucose 302 H 337 H 340 H Calcium AST ALT Alkaline Phosphatase Total Creatine Kinase CK-MB (CK-2) Total Protein Albumin 08/05/16 08/05/16 08/05/16 01:43 05:00 05:00 WBC RBC Hgb 9.5 L Hct 30.1 L MCV 81 L MCH 26 L MCHC RDW 19.1 H Plt Count 112 L Lymph % (Auto) [place] % (Auto) Lymph # [place] # Seg Neutrophils % Seg Neuts % (Manual) Lymphocytes % (Manual) Seg Neutrophils # Man POC ABG pH POC ABG pCO2 POC ABG pO2 Sodium Carbon Dioxide BUN 27 H Creatinine 0.7 L Glucose 212 H POC Glucose 247 H Calcium 8.3 L AST 92 H ALT 81 H Alkaline Phosphatase 629 H Total Creatine Kinase CK-MB (CK-2) Total Protein 5.9 L Albumin 2.2 L 08/05/16 08/05/16 08/05/16 05:14 05:19 10:12 WBC RBC Hgb Hct MCV MCH MCHC RDW Plt Count Lymph % (Auto) [place] % (Auto) Lymph # [place] # Seg Neutrophils % Seg Neuts % (Manual) Lymphocytes % (Manual) Seg Neutrophils # Man POC ABG pH 7.469 H POC ABG pCO2 POC ABG pO2 109 H Sodium Carbon Dioxide BUN Creatinine Glucose POC Glucose 208 H 206 H Calcium AST ALT Alkaline Phosphatase Total Creatine Kinase CK-MB (CK-2) Total Protein Albumin Chest x-ray: report reviewed, image reviewed
[2016-08-05 13:13] LABS: ISTAT Base Excess 2; ISTAT HCO3 26.6; ISTAT PCO2 42.1 (35-45); ISTAT PH 7.409 (7.35-7.45); ISTAT PO2 88 (80-105); ISTAT SO2 97; ISTAT TCO2 28
[2016-08-05] MEDS: VANCOMYCIN 1,500 MG in NACL 0.9% 500 ML 500 ML IV SCH (13:56)
--- NOTE | 2016-08-05 16:10 | Progress Note ---
Assessment and Plan 76-year-old man with a history of hypertension, diabetes, hyperlipidemia, BPH, was brought to the emergency room because son found him on the floor with unresponsiveness. Patient was intubated in the emergency room. 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 - CT head was unremarkable on admission - EEG showed no seizure Acut b/l CVA - likely present since admission - will add aspirin and lipitor - neuro following Elevated LFTs - Obtained ultrasound of the abdomen - US showed cholelithiasis without cholecystitis - monitor LFT as he will be on statin Hypertension - cont monitor, provide Bp meds with TF Diabetes - SSI Hyperlipidemia - cont statin BPH - monitor urine output SIRS - pt has elevated white count and tachycardia - cont zosyn and cxr showed atelectasis - tracheal aspirate grew gm -ve rods, will follow final result Prognosis guarded Subjective: Patient is intubated, off sedation, on weaning trial Subjective Date of service: 08/05/16 Principal diagnosis: acute respiratory failure Objective - Exam Narrative Exam: General appearance: Present: no acute distress, well-nourished, other (intubated , unresponsive) - EENT Eyes: no scleral icterus, no conjunctival injection ENT: dentition normal, no thrush Ears: bilateral: normal - Neck Neck: no rigidity, no enlarged thyroid, no masses or JVD - Respiratory Respiratory effort: other (on vent) Respiratory: bilateral: CTA - Breasts Breasts: normal - Cardiovascular Heart Sounds: Present: S1 & S2 (tachycardic). Absent: gallop, rub Extremities: pulses intact, No edema, normal color - Gastrointestinal General gastrointestinal: Present: soft, non-distended, normal bowel sounds - Integumentary Integumentary: clear, dry - Neurologic Neurologic: other (does not follow commend) - Constitutional Vitals: Vital Signs - 12hr 08/05/16 08/05/16 08/05/16 04:58 05:00 05:30 Temperature Pulse Rate 117 H 108 H 103 H Respiratory 24 28 H 20 Rate Blood Pressure 149/63 158/71 O2 Sat by Pulse 97 97 99 Oximetry 08/05/16 08/05/16 08/05/16 06:00 06:30 07:00 Temperature Pulse Rate 95 H 98 H 97 H Respiratory 19 13 20 Rate Blood Pressure 143/63 128/61 128/57 O2 Sat by Pulse 99 99 98 Oximetry 08/05/16 08/05/16 08/05/16 07:30 07:52 08:00 Temperature 99.2 F Pulse Rate 94 H 102 H 101 H Respiratory 16 19 Rate Blood Pressure 130/57 130/57 140/62 O2 Sat by Pulse 99 100 100 Oximetry 08/05/16 08/05/16 08/05/16 08:30 09:00 09:10 Temperature Pulse Rate 96 H 94 H 98 H Respiratory 16 16 15 Rate Blood Pressure 140/62 141/64 141/64 O2 Sat by Pulse 100 99 100 Oximetry 08/05/16 08/05/16 08/05/16 09:30 10:00 10:30 Temperature Pulse Rate 95 H 89 90 Respiratory 16 16 12 Rate Blood Pressure 141/64 145/63 153/56 O2 Sat by Pulse 100 100 100 Oximetry 08/05/16 08/05/16 08/05/16 11:00 11:30 12:00 Temperature 99.0 F Pulse Rate 88 88 94 H Respiratory 17 17 14 Rate Blood Pressure 141/58 140/63 138/57 O2 Sat by Pulse 100 100 100 Oximetry 08/05/16 08/05/16 08/05/16 12:30 12:56 13:00 Temperature Pulse Rate 92 H 87 93 H Respiratory 14 16 18 Rate Blood Pressure 138/57 139/57 134/61 O2 Sat by Pulse 100 100 99 Oximetry 08/05/16 08/05/16 08/05/16 13:30 14:00 14:30 Temperature Pulse Rate 94 H 90 97 H Respiratory 17 16 15 Rate Blood Pressure 134/61 136/65 135/58 O2 Sat by Pulse 100 100 100 Oximetry 08/05/16 15:00 Temperature Pulse Rate 105 H Respiratory 18 Rate Blood Pressure 142/59 O2 Sat by Pulse 100 Oximetry - Labs CBC & Chem 7: 08/05/16 05:00 08/05/16 05:00 Labs: Abnormal lab results 08/04/16 08/04/16 08/05/16 Range/Units 17:31 21:52 01:43 Hgb (11.8-15.2) gm/dl Hct (35.5-45.6) % MCV (84-94) fl MCH (28-32) pg RDW (13.2-15.2) % Plt Count (140-440) K/mm3 POC ABG pH (7.35-7.45) POC ABG pO2 (80-105) BUN (9-20) mg/dL Creatinine (0.8-1.5) mg/dL Glucose (75-100) mg/dL POC Glucose 337 H 340 H 247 H (70-105) Calcium (8.4-10.2) mg/dL AST (5-40) units/L ALT (7-56) units/L Alkaline Phosphatase (35-129) units/L Total Protein (6.3-8.2) g/dL Albumin (3.9-5) g/dL 08/05/16 08/05/16 08/05/16 Range/Units 05:00 05:00 05:14 Hgb 9.5 L (11.8-15.2) gm/dl Hct 30.1 L (35.5-45.6) % MCV 81 L (84-94) fl MCH 26 L (28-32) pg RDW 19.1 H (13.2-15.2) % Plt Count 112 L (140-440) K/mm3 POC ABG pH (7.35-7.45) POC ABG pO2 (80-105) BUN 27 H (9-20) mg/dL Creatinine 0.7 L (0.8-1.5) mg/dL Glucose 212 H (75-100) mg/dL POC Glucose 208 H (70-105) Calcium 8.3 L (8.4-10.2) mg/dL AST 92 H (5-40) units/L ALT 81 H (7-56) units/L Alkaline Phosphatase 629 H (35-129) units/L Total Protein 5.9 L (6.3-8.2) g/dL Albumin 2.2 L (3.9-5) g/dL 08/05/16 08/05/16 08/05/16 Range/Units 05:19 10:12 13:54 Hgb (11.8-15.2) gm/dl Hct (35.5-45.6) % MCV (84-94) fl MCH (28-32) pg RDW (13.2-15.2) % Plt Count (140-440) K/mm3 POC ABG pH 7.469 H (7.35-7.45) POC ABG pO2 109 H (80-105) BUN (9-20) mg/dL Creatinine (0.8-1.5) mg/dL Glucose (75-100) mg/dL POC Glucose 206 H 226 H (70-105) Calcium (8.4-10.2) mg/dL AST (5-40) units/L ALT (7-56) units/L Alkaline Phosphatase (35-129) units/L Total Protein (6.3-8.2) g/dL Albumin (3.9-5) g/dL
[2016-08-06] MEDS: NACL 0.9% IV SCH ×3 (05:27→22:11)
[2016-08-06] MEDS: ZOVIRAX IV SCH ×3 (05:27→22:11)
[2016-08-06] MEDS: ZOSYN/NS 4.5GM/100ML 4.5 GM/100 ML VIAL IV SCH ×3 (05:27→22:12)
[2016-08-06 06:20] LABS: ISTAT Base Excess 3; ISTAT HCO3 27.2; ISTAT PH 7.409 (7.35-7.45); ISTAT PO2 62 (80-105); ISTAT SO2 91; ISTAT TCO2 28
[2016-08-06] MEDS: ASPIRIN PO SCH (09:31)
[2016-08-06] MEDS: LEVEMIR SUB-Q SCH (09:31)
[2016-08-06] MEDS: PEPCID PO SCH ×2 (09:31→22:12)
[2016-08-06] MEDS: LOVENOX SUB-Q SCH (09:31)
--- NOTE | 2016-08-06 09:45 | XRay Report ---
AP CHEST: HISTORY: Followup respiratory failure Lines and support devices are unchanged. The lungs remain generally clear. Heart and mediastinal structures are unremarkable. No acute change since yesterday's exam. IMPRESSION: No significant change.
--- NOTE | 2016-08-06 10:56 | Progress Note ---
Assessment and Plan - Patient Problems (1) Acute respiratory failure Current Visit: Yes Status: Acute Qualifiers: Respiratory failure complication: hypoxia Qualified Code(s): J96.01 - Acute respiratory failure with hypoxia (2) Altered mental status Current Visit: Yes Status: Acute Qualifiers: Altered mental status type: stupor Coma depth: C Coma timing: C Qualified Code(s): R40.1 - Stupor (3) Elevated LFTs Current Visit: Yes Status: Acute (4) Endotracheally intubated Current Visit: Yes Status: Acute (5) Obesity due to excess calories Current Visit: Yes Status: Acute Qualifiers: Obesity severity: O (6) Toxic encephalopathy Current Visit: Yes Status: Acute Subjective Principal diagnosis: acute respiratory failure Interval history: on vent still not opening eyes Objective Vital Signs - 12hr 08/05/16 08/05/16 08/06/16 23:00 23:30 00:00 Temperature 100.3 F H Pulse Rate 100 H 100 H 104 H Respiratory 15 20 17 Rate Blood Pressure 151/63 139/66 139/66 O2 Sat by Pulse 100 99 100 Oximetry 08/06/16 08/06/16 08/06/16 00:30 01:00 01:30 Temperature Pulse Rate 94 H 100 H 96 H Respiratory 18 12 19 Rate Blood Pressure 157/67 168/60 168/60 O2 Sat by Pulse 100 100 100 Oximetry 08/06/16 08/06/16 08/06/16 02:00 02:31 03:00 Temperature Pulse Rate 103 H 103 H 101 H Respiratory 21 23 18 Rate Blood Pressure 167/62 146/70 136/54 O2 Sat by Pulse 99 99 98 Oximetry 08/06/16 08/06/16 08/06/16 03:30 04:00 04:30 Temperature 99.8 F H Pulse Rate 92 H 91 H 96 H Respiratory 18 18 19 Rate Blood Pressure 144/63 138/60 135/60 O2 Sat by Pulse 98 98 98 Oximetry 08/06/16 08/06/16 08/06/16 05:00 05:30 05:42 Temperature Pulse Rate 93 H 98 H 90 Respiratory 19 19 Rate Blood Pressure 138/53 145/58 138/53 O2 Sat by Pulse 99 99 99 Oximetry 08/06/16 08/06/16 08/06/16 06:00 06:30 07:00 Temperature Pulse Rate 98 H 105 H 103 H Respiratory 18 18 17 Rate Blood Pressure 139/58 137/57 135/60 O2 Sat by Pulse 98 99 99 Oximetry 08/06/16 08/06/16 08/06/16 07:30 07:34 07:51 Temperature Pulse Rate 104 H 99 H Respiratory 20 16 Rate Blood Pressure 134/61 134/61 O2 Sat by Pulse 98 98 99 Oximetry 08/06/16 08/06/16 08/06/16 07:53 08:00 08:31 Temperature 99.6 F Pulse Rate 100 H 96 H Respiratory 17 19 Rate Blood Pressure 140/59 139/63 O2 Sat by Pulse 99 99 Oximetry Constitutional: no acute distress, other (intubated, ) Eyes: other (pupils are equal, very slowly reactive) ENT: other (ett continued position at 23) Neck: supple, no JVD Ascultation: Bilateral: clear, diminished breath sounds Gastrointestinal: normoactive bowel sounds, non-distended Integumentary: normal Extremities: no cyanosis, no edema Neurologic: other (no changes) CBC and BMP: 08/05/16 05:00 08/05/16 05:00 ABG, PT/INR, D-dimer: ABG POC ABG pH 7.409 (7.35-7.45) 08/06/16 05:42 POC ABG pCO2 43.0 (35-45) 08/06/16 05:42 POC ABG pO2 62 (80-105) L 08/06/16 05:42 POC ABG HCO3 27.2 08/06/16 05:42 POC ABG Total CO2 28 08/06/16 05:42 POC ABG O2 Sat 91 08/06/16 05:42 PT/INR, D-dimer PT 15.8 Sec. (12.2-14.9) H 07/31/16 00:13 INR 1.20 (0.87-1.13) H 07/31/16 00:13 Abnormal lab findings: Abnormal Labs 07/31/16 07/31/16 07/31/16 08:39 10:07 12:07 WBC RBC Hgb Hct MCV MCH MCHC RDW Plt Count Lymph % (Auto) [place] % (Auto) Lymph # [place] # Seg Neutrophils % Seg Neuts % (Manual) Lymphocytes % (Manual) Seg Neutrophils # Man POC ABG pH POC ABG pCO2 POC ABG pO2 Sodium Carbon Dioxide BUN Creatinine Glucose POC Glucose 205 H 188 H Calcium AST ALT Alkaline Phosphatase Total Creatine Kinase 865 H CK-MB (CK-2) 5.9 H Total Protein Albumin 07/31/16 07/31/16 07/31/16 16:19 19:58 23:53 WBC RBC Hgb Hct MCV MCH MCHC RDW Plt Count Lymph % (Auto) [place] % (Auto) Lymph # [place] # Seg Neutrophils % Seg Neuts % (Manual) Lymphocytes % (Manual) Seg Neutrophils # Man POC ABG pH POC ABG pCO2 POC ABG pO2 Sodium Carbon Dioxide BUN Creatinine Glucose POC Glucose 195 H 147 H 160 H Calcium AST ALT Alkaline Phosphatase Total Creatine Kinase CK-MB (CK-2) Total Protein Albumin 08/01/16 08/01/16 08/01/16 04:18 04:42 07:45 WBC 14.8 H RBC Hgb 10.7 L Hct 34.9 L MCV 82 L MCH 25 L MCHC 31 L RDW 19.1 H Plt Count Lymph % (Auto) [place] % (Auto) Lymph # [place] # Seg Neutrophils % Seg Neuts % (Manual) 80.0 H Lymphocytes % (Manual) 12.0 L Seg Neutrophils # Man 11.8 H POC ABG pH POC ABG pCO2 33.4 L POC ABG pO2 66 L Sodium Carbon Dioxide BUN Creatinine Glucose POC Glucose 225 H Calcium AST ALT Alkaline Phosphatase Total Creatine Kinase CK-MB (CK-2) Total Protein Albumin 08/01/16 08/01/16 08/01/16 07:45 10:09 10:59 WBC RBC Hgb Hct MCV MCH MCHC RDW Plt Count Lymph % (Auto) [place] % (Auto) Lymph # [place] # Seg Neutrophils % Seg Neuts % (Manual) Lymphocytes % (Manual) Seg Neutrophils # Man POC ABG pH POC ABG pCO2 POC ABG pO2 Sodium Carbon Dioxide BUN 29 H Creatinine Glucose 233 H POC Glucose 266 H 318 H Calcium 7.6 L AST ALT Alkaline Phosphatase Total Creatine Kinase CK-MB (CK-2) Total Protein Albumin 08/01/16 08/01/16 08/01/16 14:24 17:56 21:21 WBC RBC Hgb Hct MCV MCH MCHC RDW Plt Count Lymph % (Auto) [place] % (Auto) Lymph # [place] # Seg Neutrophils % Seg Neuts % (Manual) Lymphocytes % (Manual) Seg Neutrophils # Man POC ABG pH POC ABG pCO2 POC ABG pO2 Sodium Carbon Dioxide BUN Creatinine Glucose POC Glucose 298 H 239 H 203 H Calcium AST ALT Alkaline Phosphatase Total Creatine Kinase CK-MB (CK-2) Total Protein Albumin 08/02/16 08/02/16 08/02/16 02:05 03:55 05:38 WBC RBC Hgb Hct MCV MCH MCHC RDW Plt Count Lymph % (Auto) [place] % (Auto) Lymph # [place] # Seg Neutrophils % Seg Neuts % (Manual) Lymphocytes % (Manual) Seg Neutrophils # Man POC ABG pH 7.460 H POC ABG pCO2 31.2 L POC ABG pO2 71 L Sodium Carbon Dioxide BUN Creatinine Glucose POC Glucose 248 H 253 H Calcium AST ALT Alkaline Phosphatase Total Creatine Kinase CK-MB (CK-2) Total Protein Albumin 08/02/16 08/02/16 08/02/16 09:11 09:44 09:44 WBC RBC 3.62 L Hgb 9.4 L Hct 29.1 L MCV 80 L MCH 26 L MCHC RDW 18.7 H Plt Count Lymph % (Auto) [place] % (Auto) 9.2 H Lymph # [place] # 1.0 H Seg Neutrophils % 72.0 H Seg Neuts % (Manual) Lymphocytes % (Manual) Seg Neutrophils # Man POC ABG pH POC ABG pCO2 POC ABG pO2 Sodium 135 L Carbon Dioxide 21 L BUN 42 H Creatinine Glucose 248 H POC Glucose 306 H Calcium 7.6 L AST ALT Alkaline Phosphatase Total Creatine Kinase CK-MB (CK-2) Total Protein Albumin 08/02/16 08/02/16 08/02/16 15:53 17:33 21:39 WBC RBC Hgb Hct MCV MCH MCHC RDW Plt Count Lymph % (Auto) [place] % (Auto) Lymph # [place] # Seg Neutrophils % Seg Neuts % (Manual) Lymphocytes % (Manual) Seg Neutrophils # Man POC ABG pH POC ABG pCO2 POC ABG pO2 Sodium Carbon Dioxide BUN Creatinine Glucose POC Glucose 205 H 250 H 282 H Calcium AST ALT Alkaline Phosphatase Total Creatine Kinase CK-MB (CK-2) Total Protein Albumin 08/03/16 08/03/16 08/03/16 02:28 05:47 07:05 WBC RBC 3.32 L Hgb 8.4 L Hct 26.5 L MCV 80 L MCH 25 L MCHC RDW 18.7 H Plt Count 112 L Lymph % (Auto) 12.5 L [place] % (Auto) 10.2 H Lymph # 1.0 L [place] # Seg Neutrophils % 75.9 H Seg Neuts % (Manual) Lymphocytes % (Manual) Seg Neutrophils # Man POC ABG pH POC ABG pCO2 POC ABG pO2 Sodium Carbon Dioxide BUN Creatinine Glucose POC Glucose 317 H 253 H Calcium AST ALT Alkaline Phosphatase Total Creatine Kinase CK-MB (CK-2) Total Protein Albumin 08/03/16 08/03/16 08/03/16 07:05 09:50 14:07 WBC RBC Hgb Hct MCV MCH MCHC RDW Plt Count Lymph % (Auto) [place] % (Auto) Lymph # [place] # Seg Neutrophils % Seg Neuts % (Manual) Lymphocytes % (Manual) Seg Neutrophils # Man POC ABG pH POC ABG pCO2 POC ABG pO2 Sodium 132 L Carbon Dioxide 20 L BUN 42 H Creatinine Glucose 243 H POC Glucose 332 H 345 H Calcium 6.8 L AST ALT Alkaline Phosphatase Total Creatine Kinase CK-MB (CK-2) Total Protein Albumin 08/03/16 08/03/16 08/04/16 17:38 21:36 02:18 WBC RBC Hgb Hct MCV MCH MCHC RDW Plt Count Lymph % (Auto) [place] % (Auto) Lymph # [place] # Seg Neutrophils % Seg Neuts % (Manual) Lymphocytes % (Manual) Seg Neutrophils # Man POC ABG pH POC ABG pCO2 POC ABG pO2 Sodium Carbon Dioxide BUN Creatinine Glucose POC Glucose 262 H 260 H 256 H Calcium AST ALT Alkaline Phosphatase Total Creatine Kinase CK-MB (CK-2) Total Protein Albumin 08/04/16 08/04/16 08/04/16 05:41 06:00 10:20 WBC RBC Hgb Hct MCV MCH MCHC RDW Plt Count Lymph % (Auto) [place] % (Auto) Lymph # [place] # Seg Neutrophils % Seg Neuts % (Manual) Lymphocytes % (Manual) Seg Neutrophils # Man POC ABG pH POC ABG pCO2 POC ABG pO2 Sodium Carbon Dioxide BUN 34 H Creatinine 0.7 L Glucose 237 H POC Glucose 265 H 266 H Calcium 7.9 L D AST ALT Alkaline Phosphatase Total Creatine Kinase CK-MB (CK-2) Total Protein Albumin 08/04/16 08/04/16 08/04/16 14:20 17:31 21:52 WBC RBC Hgb Hct MCV MCH MCHC RDW Plt Count Lymph % (Auto) [place] % (Auto) Lymph # [place] # Seg Neutrophils % Seg Neuts % (Manual) Lymphocytes % (Manual) Seg Neutrophils # Man POC ABG pH POC ABG pCO2 POC ABG pO2 Sodium Carbon Dioxide BUN Creatinine Glucose POC Glucose 302 H 337 H 340 H Calcium AST ALT Alkaline Phosphatase Total Creatine Kinase CK-MB (CK-2) Total Protein Albumin 08/05/16 08/05/16 08/05/16 01:43 05:00 05:00 WBC RBC Hgb 9.5 L Hct 30.1 L MCV 81 L MCH 26 L MCHC RDW 19.1 H Plt Count 112 L Lymph % (Auto) [place] % (Auto) Lymph # [place] # Seg Neutrophils % Seg Neuts % (Manual) Lymphocytes % (Manual) Seg Neutrophils # Man POC ABG pH POC ABG pCO2 POC ABG pO2 Sodium Carbon Dioxide BUN 27 H Creatinine 0.7 L Glucose 212 H POC Glucose 247 H Calcium 8.3 L AST 92 H ALT 81 H Alkaline Phosphatase 629 H Total Creatine Kinase CK-MB (CK-2) Total Protein 5.9 L Albumin 2.2 L 08/05/16 08/05/16 08/05/16 05:14 05:19 10:12 WBC RBC Hgb Hct MCV MCH MCHC RDW Plt Count Lymph % (Auto) [place] % (Auto) Lymph # [place] # Seg Neutrophils % Seg Neuts % (Manual) Lymphocytes % (Manual) Seg Neutrophils # Man POC ABG pH 7.469 H POC ABG pCO2 POC ABG pO2 109 H Sodium Carbon Dioxide BUN Creatinine Glucose POC Glucose 208 H 206 H Calcium AST ALT Alkaline Phosphatase Total Creatine Kinase CK-MB (CK-2) Total Protein Albumin 08/05/16 08/05/16 08/05/16 13:54 18:31 22:06 WBC RBC Hgb Hct MCV MCH MCHC RDW Plt Count Lymph % (Auto) [place] % (Auto) Lymph # [place] # Seg Neutrophils % Seg Neuts % (Manual) Lymphocytes % (Manual) Seg Neutrophils # Man POC ABG pH POC ABG pCO2 POC ABG pO2 Sodium Carbon Dioxide BUN Creatinine Glucose POC Glucose 226 H 229 H 245 H Calcium AST ALT Alkaline Phosphatase Total Creatine Kinase CK-MB (CK-2) Total Protein Albumin 08/06/16 08/06/16 08/06/16 02:03 05:31 05:42 WBC RBC Hgb Hct MCV MCH MCHC RDW Plt Count Lymph % (Auto) [place] % (Auto) Lymph # [place] # Seg Neutrophils % Seg Neuts % (Manual) Lymphocytes % (Manual) Seg Neutrophils # Man POC ABG pH POC ABG pCO2 POC ABG pO2 62 L Sodium Carbon Dioxide BUN Creatinine Glucose POC Glucose 237 H 205 H Calcium AST ALT Alkaline Phosphatase Total Creatine Kinase CK-MB (CK-2) Total Protein Albumin Chest x-ray: report reviewed, image reviewed
[2016-08-06 12:07] LABS: INR 1.59 (0.87-1.13)
[2016-08-06 12:08] LABS: Partial Thromboplastin Time 39.7 Sec. (24.2-36.6)
--- NOTE | 2016-08-06 13:32 | Progress Note ---
Assessment and Plan - Patient Problems (1) Altered mental status Current Visit: Yes Status: Acute Qualifiers: Altered mental status type: stupor Coma depth: C Coma timing: C Qualified Code(s): R40.1 - Stupor Plan to address problem: Await lumbar puncture and analysis of CSF, [place]. WNV, etc. Continue supportive management and broad antimicrobials. (2) Acute respiratory failure Current Visit: Yes Status: Acute Qualifiers: Respiratory failure complication: hypoxia Qualified Code(s): J96.01 - Acute respiratory failure with hypoxia Plan to address problem: Gram negative rods isolated from sputum. Await final culture results. Will continue Zosyn and other broad antimicrobials pending results of CSF analysis. Subjective Date of service: 08/06/16 Principal diagnosis: acute respiratory failure Interval history: Remains in ICU. Afebrile. Objective - Constitutional Vitals: Vital Signs Temp Pulse Resp BP Pulse Ox 99.8 F H 86 19 158/68 100 08/06/16 12:00 08/06/16 13:00 08/06/16 13:00 08/06/16 13:00 08/06/16 13:00 Temperature -Last 24 Hours Temperature 99.8 F Temperature 99.6 F Temperature 99.8 F Temperature 100.3 F Temperature 100.1 F Temperature 99.8 F General appearance: Present: well-nourished, other (intubated, FiO2 35%, sedated / upper limb restraints) - EENT Eyes: no discharge ENT: no other (ET and NG tubes in place) - Neck Neck: supple - Respiratory Respiratory: bilateral: CTA, negative: rales, rhonchi - Cardiovascular Rhythm: regular Heart Sounds: Present: S1 & S2 Extremity abnormal: edema (trace pedal edema) - Gastrointestinal General gastrointestinal: Present: soft, non-tender, non-distended, normal bowel sounds Rectal Exam: other (rectal tube with liquid brown stool) - Genitourinary Male genitourinary: normal (Carter with yellow urine) - Integumentary Integumentary: clear, no jaundice, no rash - Labs CBC & Chem 7: 08/05/16 05:00 08/05/16 05:00 Labs: Abnormal lab results 08/05/16 08/05/16 08/05/16 Range/Units 13:54 18:31 22:06 PT (12.2-14.9) Sec. INR (0.87-1.13) APTT (24.2-36.6) Sec. POC ABG pO2 (80-105) POC Glucose 226 H 229 H 245 H (70-105) 08/06/16 08/06/16 08/06/16 Range/Units 02:03 05:31 05:42 PT (12.2-14.9) Sec. INR (0.87-1.13) APTT (24.2-36.6) Sec. POC ABG pO2 62 L (80-105) POC Glucose 237 H 205 H (70-105) 08/06/16 08/06/16 Range/Units 09:36 11:30 PT 18.9 H (12.2-14.9) Sec. INR 1.59 H (0.87-1.13) APTT 39.7 H (24.2-36.6) Sec. POC ABG pO2 (80-105) POC Glucose 279 H (70-105) Microbiology 08/01/16 10:57 Peripheral/Venous Blood Culture - Final NO GROWTH AFTER 5 DAYS 08/03/16 Unknown Tracheal Aspirate Sputum Culture - Preliminary Gram Negative Fernando Gram Negative Fernando#2 08/01/16 13:18 Peripheral/Venous Blood Culture - Preliminary NO GROWTH AFTER 4 DAYS 07/30/16 23:34 Tracheal Aspirate Sputum Culture - Final
[2016-08-06] MEDS: VANCOMYCIN 1,500 MG in NACL 0.9% 500 ML 500 ML IV SCH (14:33)
--- NOTE | 2016-08-06 15:54 | Progress Note ---
Assessment and Plan 76-year-old man with a history of hypertension, diabetes, hyperlipidemia, BPH, was brought to the emergency room because son found him on the floor with unresponsiveness. Patient was intubated in the emergency room. 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 - CT head was unremarkable on admission - EEG showed no seizure Acut b/l CVA - likely present since admission - will add aspirin and lipitor - neuro following Elevated LFTs - Obtained ultrasound of the abdomen - US showed cholelithiasis without cholecystitis - monitor LFT as he will be on statin Hypertension - cont monitor, provide Bp meds with TF Diabetes - SSI Hyperlipidemia - cont statin BPH - monitor urine output SIRS - pt has elevated white count and tachycardia - cont zosyn and cxr showed atelectasis - tracheal aspirate grew gm -ve rods, will follow final result Prognosis guarded Subjective: Patient is intubated, off sedation, unable to wean off vent, may need trach Subjective Date of service: 08/06/16 Principal diagnosis: acute respiratory failure Objective - Exam Narrative Exam: General appearance: Present: no acute distress, well-nourished, other (intubated , unresponsive) - EENT Eyes: no scleral icterus, no conjunctival injection ENT: dentition normal, no thrush Ears: bilateral: normal - Neck Neck: no rigidity, no enlarged thyroid, no masses or JVD - Respiratory Respiratory effort: other (on vent) Respiratory: bilateral: CTA - Breasts Breasts: normal - Cardiovascular Heart Sounds: Present: S1 & S2 (tachycardic). Absent: gallop, rub Extremities: pulses intact, No edema, normal color - Gastrointestinal General gastrointestinal: Present: soft, non-distended, normal bowel sounds - Integumentary Integumentary: clear, dry - Neurologic Neurologic: other (does not follow commend) - Constitutional Vitals: Vital Signs - 12hr 08/06/16 08/06/16 08/06/16 04:00 04:30 05:00 Temperature 99.8 F H Pulse Rate 91 H 96 H 93 H Respiratory 18 19 19 Rate Blood Pressure 138/60 135/60 138/53 O2 Sat by Pulse 98 98 99 Oximetry 08/06/16 08/06/16 08/06/16 05:30 05:42 06:00 Temperature Pulse Rate 98 H 90 98 H Respiratory 19 18 Rate Blood Pressure 145/58 138/53 139/58 O2 Sat by Pulse 99 99 98 Oximetry 08/06/16 08/06/16 08/06/16 06:30 07:00 07:30 Temperature Pulse Rate 105 H 103 H 104 H Respiratory 18 17 20 Rate Blood Pressure 137/57 135/60 134/61 O2 Sat by Pulse 99 99 98 Oximetry 08/06/16 08/06/16 08/06/16 07:34 07:51 07:53 Temperature 99.6 F Pulse Rate 99 H Respiratory 16 Rate Blood Pressure 134/61 O2 Sat by Pulse 98 99 Oximetry 08/06/16 08/06/16 08/06/16 08:00 08:31 09:00 Temperature Pulse Rate 100 H 96 H 95 H Respiratory 17 19 19 Rate Blood Pressure 140/59 139/63 134/58 O2 Sat by Pulse 99 99 100 Oximetry 08/06/16 08/06/16 08/06/16 09:30 10:00 10:30 Temperature Pulse Rate 89 91 H 91 H Respiratory 20 20 16 Rate Blood Pressure 136/58 137/62 139/71 O2 Sat by Pulse 99 98 100 Oximetry 08/06/16 08/06/16 08/06/16 11:00 11:10 11:30 Temperature Pulse Rate 96 H 90 100 H Respiratory 20 19 20 Rate Blood Pressure 145/71 145/71 138/61 O2 Sat by Pulse 99 100 100 Oximetry 08/06/16 08/06/16 08/06/16 12:00 12:30 13:00 Temperature 99.8 F H Pulse Rate 96 H 93 H 86 Respiratory 20 19 19 Rate Blood Pressure 149/71 147/73 158/68 O2 Sat by Pulse 99 100 100 Oximetry 08/06/16 08/06/16 08/06/16 13:30 14:01 14:14 Temperature Pulse Rate 92 H 113 H 82 Respiratory 21 20 20 Rate Blood Pressure 142/70 148/71 148/71 O2 Sat by Pulse 99 100 100 Oximetry - Labs CBC & Chem 7: 08/07/16 07:30 08/07/16 07:30 Labs: Abnormal lab results 08/05/16 08/05/1617 Range/Units 18:31 22:06 02:03 PT (12.2-14.9) Sec. INR (0.87-1.13) APTT (24.2-36.6) Sec. POC ABG pO2 (80-105) POC Glucose 229 H 245 H 237 H (70-105) 08/06/16 08/06/16 08/06/16 Range/Units 05:31 05:42 09:36 PT (12.2-14.9) Sec. INR (0.87-1.13) APTT (24.2-36.6) Sec. POC ABG pO2 62 L (80-105) POC Glucose 205 H 279 H (70-105) 08/06/16 Range/Units 11:30 PT 18.9 H (12.2-14.9) Sec. INR 1.59 H (0.87-1.13) APTT 39.7 H (24.2-36.6) Sec. POC ABG pO2 (80-105) POC Glucose (70-105)
[2016-08-06] MEDS: NACL 0.45% 1000 ML 1,000 ML IV SCH (22:13)
[2016-08-07] MEDS: ZOVIRAX IV SCH ×3 (05:56→22:50)
[2016-08-07] MEDS: NACL 0.9% IV SCH ×3 (05:56→22:50)
[2016-08-07] MEDS: ZOSYN/NS 4.5GM/100ML 4.5 GM/100 ML VIAL IV SCH ×2 (05:56→13:52)
[2016-08-07 06:06] LABS: ISTAT Base Excess 4; ISTAT HCO3 27.4; ISTAT PCO2 38.6 (35-45); ISTAT PH 7.459 (7.35-7.45); ISTAT PO2 80 (80-105); ISTAT SO2 96; ISTAT TCO2 29
[2016-08-07 08:16] LABS: INR 1.41 (0.87-1.13)
[2016-08-07 08:22] LABS: Alanine Aminotransferase 74 units/L (7-56); Albumin 1.8 g/dL (3.9-5); Albumin/Globulin Ratio 0.5 %; Alkaline Phosphatase 595 units/L (35-129); Anion Gap 15 mmol/L; BUN/Creatinine Ratio 38.57; Blood Urea Nitrogen 27 mg/dL (9-20); Calcium 7.9 mg/dL (8.4-10.2); Carbon Dioxide 26 mmol/L (22-30); Chloride 102.7 mmol/L (98-107); Glucose 201 mg/dL (75-100); Potassium 4.1 mmol/L (3.6-5.0); Sodium 140 mmol/L (137-145); Total Protein 5.1 g/dL (6.3-8.2)
[2016-08-07 08:41] LABS: Hematocrit 27.2 % (35.5-45.6); Hemoglobin 8.6 gm/dl (11.8-15.2); Mean Corpuscular HGB Conc 32 % (32-34); Mean Corpuscular Volume 80 fl (84-94); Platelet Count 136 K/mm3 (140-440); Red Blood Count 3.39 M/mm3 (3.65-5.03); Red Cell Distribution Width 19.1 % (13.2-15.2); White Blood Count 9.8 K/mm3 (4.5-11.0)
[2016-08-07 08:43] LABS: Mean Corpuscular Hemoglobin 25 pg (28-32)
[2016-08-07] MEDS: ASPIRIN PO SCH (09:42)
[2016-08-07] MEDS: PEPCID PO SCH ×2 (09:42→21:44)
[2016-08-07] MEDS: LEVEMIR SUB-Q SCH ×2 (09:42→12:46)
[2016-08-07 10:05] LABS: Anisocytosis 1+; Blastocytes % (Manual) 0 %; Hypochromasia Few; Macrocytosis Few; Polychromasia Few; Target Cells Few
[2016-08-07 10:06] LABS: Diff Status Complete; Platelet Estimate Consistent w Auto; Tear Drop Cells Few
[2016-08-07] MEDS ORDERED: SUBLIMAZE IV ONE (11:00)
[2016-08-07] MEDS ORDERED: VERSED IV ONE (11:00)
--- NOTE | 2016-08-07 11:20 | Progress Note ---
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 1. Await ID recs in regards to abx therapy. Pseudomonas is resistant to Zosyn. NO GP's found thus far. 2. Continue CPAP therapy at tolerated. Current mental state is not optimal for extubation. Will discuss with family the possibility of trach and PEG. 3. Follow up LP results 4. Decrease Levemir dosing given recent episode of hypoglycemia 5. Will continue to follow along with you CCT 31 minutes. Subjective Date of service: 08/07/16 Principal diagnosis: acute respiratory failure Interval history: Tolerating CPAP. Not on any sedation currently. About to go downstairs for LP , ordered by Infectious Disease. Had some hypoglycemia this am so D50 was given. Objective Vital Signs - 12hr 08/06/16 08/07/16 08/07/16 23:31 00:00 00:15 Temperature 100.0 F H Pulse Rate 102 H 109 H 97 H Respiratory 12 17 Rate Blood Pressure 117/51 118/53 109/57 O2 Sat by Pulse 97 98 100 Oximetry 08/07/16 08/07/16 08/07/16 00:30 01:00 01:30 Temperature Pulse Rate 102 H 108 H 101 H Respiratory 16 17 15 Rate Blood Pressure 108/55 109/57 118/55 O2 Sat by Pulse 96 98 97 Oximetry 08/07/16 08/07/16 08/07/16 02:00 02:30 03:00 Temperature Pulse Rate 102 H 112 H 95 H Respiratory 16 17 16 Rate Blood Pressure 117/56 123/58 115/56 O2 Sat by Pulse 96 97 98 Oximetry 08/07/16 08/07/16 08/07/16 03:30 04:00 04:31 Temperature 99.9 F H Pulse Rate 96 H 100 H 97 H Respiratory 15 16 16 Rate Blood Pressure 119/55 122/61 111/51 O2 Sat by Pulse 96 98 96 Oximetry 08/07/16 08/07/16 08/07/16 05:00 05:19 05:30 Temperature Pulse Rate 89 97 H 96 H Respiratory 18 24 24 Rate Blood Pressure 108/56 108/56 117/55 O2 Sat by Pulse 98 100 96 Oximetry 08/07/16 08/07/16 08/07/16 06:01 06:30 07:00 Temperature Pulse Rate 94 H 98 H 101 H Respiratory 23 20 16 Rate Blood Pressure 111/51 116/55 117/54 O2 Sat by Pulse 96 95 97 Oximetry 08/07/16 08/07/16 08/07/16 07:30 07:31 07:52 Temperature 98.4 F Pulse Rate 101 H 98 H Respiratory 22 21 Rate Blood Pressure 118/49 118/49 O2 Sat by Pulse 98 100 Oximetry 08/07/16 08/07/16 08/07/16 08:00 08:30 09:00 Temperature Pulse Rate 104 H 97 H 92 H Respiratory 18 21 22 Rate Blood Pressure 123/55 113/57 122/57 O2 Sat by Pulse 97 97 98 Oximetry 08/07/16 08/07/16 08/07/16 09:30 10:00 10:30 Temperature Pulse Rate 96 H 98 H 91 H Respiratory 19 21 20 Rate Blood Pressure 119/57 123/58 107/54 O2 Sat by Pulse 97 98 98 Oximetry 08/07/16 11:09 Temperature Pulse Rate 93 H Respiratory 21 Rate Blood Pressure 115/47 O2 Sat by Pulse 99 Oximetry Constitutional: no acute distress, other (intubated, ) Eyes: other (pupils are equal, very slowly reactive) ENT: other (orally intubated) Neck: supple, no JVD Ascultation: Bilateral: clear, diminished breath sounds Gastrointestinal: normoactive bowel sounds, non-distended Integumentary: normal Extremities: no cyanosis, no edema Neurologic: other (no changes) CBC and BMP: 08/07/16 07:30 08/07/16 07:30 ABG, PT/INR, D-dimer: ABG POC ABG pH 7.459 (7.35-7.45) H 08/07/16 05:18 POC ABG pCO2 38.6 (35-45) 08/07/16 05:18 POC ABG pO2 80 (80-105) 08/07/16 05:18 POC ABG HCO3 27.4 08/07/16 05:18 POC ABG Total CO2 29 08/07/16 05:18 POC ABG O2 Sat 96 08/07/16 05:18 PT/INR, D-dimer PT 17.2 Sec. (12.2-14.9) H 08/07/16 07:30 INR 1.41 (0.87-1.13) H 08/07/16 07:30 Abnormal lab findings: Abnormal Labs 07/31/16 07/31/16 07/31/16 08:39 10:07 12:07 WBC RBC Hgb Hct MCV MCH MCHC RDW Plt Count Lymph % (Auto) [place] % (Auto) Lymph # [place] # Seg Neutrophils % Seg Neuts % (Manual) Lymphocytes % (Manual) Monocytes % (Manual) Seg Neutrophils # Man Lymphocytes # (Manual) PT INR APTT POC ABG pH POC ABG pCO2 POC ABG pO2 Sodium Carbon Dioxide BUN Creatinine Glucose POC Glucose 205 H 188 H Calcium AST ALT Alkaline Phosphatase Total Creatine Kinase 865 H CK-MB (CK-2) 5.9 H Total Protein Albumin 07/31/16 07/31/16 07/31/16 16:19 19:58 23:53 WBC RBC Hgb Hct MCV MCH MCHC RDW Plt Count Lymph % (Auto) [place] % (Auto) Lymph # [place] # Seg Neutrophils % Seg Neuts % (Manual) Lymphocytes % (Manual) Monocytes % (Manual) Seg Neutrophils # Man Lymphocytes # (Manual) PT INR APTT POC ABG pH POC ABG pCO2 POC ABG pO2 Sodium Carbon Dioxide BUN Creatinine Glucose POC Glucose 195 H 147 H 160 H Calcium AST ALT Alkaline Phosphatase Total Creatine Kinase CK-MB (CK-2) Total Protein Albumin 08/01/16 08/01/16 08/01/16 04:18 04:42 07:45 WBC 14.8 H RBC Hgb 10.7 L Hct 34.9 L MCV 82 L MCH 25 L MCHC 31 L RDW 19.1 H Plt Count Lymph % (Auto) [place] % (Auto) Lymph # [place] # Seg Neutrophils % Seg Neuts % (Manual) 80.0 H Lymphocytes % (Manual) 12.0 L Monocytes % (Manual) Seg Neutrophils # Man 11.8 H Lymphocytes # (Manual) PT INR APTT POC ABG pH POC ABG pCO2 33.4 L POC ABG pO2 66 L Sodium Carbon Dioxide BUN Creatinine Glucose POC Glucose 225 H Calcium AST ALT Alkaline Phosphatase Total Creatine Kinase CK-MB (CK-2) Total Protein Albumin 08/01/16 08/01/16 08/01/16 07:45 10:09 10:59 WBC RBC Hgb Hct MCV MCH MCHC RDW Plt Count Lymph % (Auto) [place] % (Auto) Lymph # [place] # Seg Neutrophils % Seg Neuts % (Manual) Lymphocytes % (Manual) Monocytes % (Manual) Seg Neutrophils # Man Lymphocytes # (Manual) PT INR APTT POC ABG pH POC ABG pCO2 POC ABG pO2 Sodium Carbon Dioxide BUN 29 H Creatinine Glucose 233 H POC Glucose 266 H 318 H Calcium 7.6 L AST ALT Alkaline Phosphatase Total Creatine Kinase CK-MB (CK-2) Total Protein Albumin 08/01/16 08/01/16 08/01/16 14:24 17:56 21:21 WBC RBC Hgb Hct MCV MCH MCHC RDW Plt Count Lymph % (Auto) [place] % (Auto) Lymph # [place] # Seg Neutrophils % Seg Neuts % (Manual) Lymphocytes % (Manual) Monocytes % (Manual) Seg Neutrophils # Man Lymphocytes # (Manual) PT INR APTT POC ABG pH POC ABG pCO2 POC ABG pO2 Sodium Carbon Dioxide BUN Creatinine Glucose POC Glucose 298 H 239 H 203 H Calcium AST ALT Alkaline Phosphatase Total Creatine Kinase CK-MB (CK-2) Total Protein Albumin 08/02/16 08/02/16 08/02/16 02:05 03:55 05:38 WBC RBC Hgb Hct MCV MCH MCHC RDW Plt Count Lymph % (Auto) [place] % (Auto) Lymph # [place] # Seg Neutrophils % Seg Neuts % (Manual) Lymphocytes % (Manual) Monocytes % (Manual) Seg Neutrophils # Man Lymphocytes # (Manual) PT INR APTT POC ABG pH 7.460 H POC ABG pCO2 31.2 L POC ABG pO2 71 L Sodium Carbon Dioxide BUN Creatinine Glucose POC Glucose 248 H 253 H Calcium AST ALT Alkaline Phosphatase Total Creatine Kinase CK-MB (CK-2) Total Protein Albumin 08/02/16 08/02/16 08/02/16 09:11 09:44 09:44 WBC RBC 3.62 L Hgb 9.4 L Hct 29.1 L MCV 80 L MCH 26 L MCHC RDW 18.7 H Plt Count Lymph % (Auto) [place] % (Auto) 9.2 H Lymph # [place] # 1.0 H Seg Neutrophils % 72.0 H Seg Neuts % (Manual) Lymphocytes % (Manual) Monocytes % (Manual) Seg Neutrophils # Man Lymphocytes # (Manual) PT INR APTT POC ABG pH POC ABG pCO2 POC ABG pO2 Sodium 135 L Carbon Dioxide 21 L BUN 42 H Creatinine Glucose 248 H POC Glucose 306 H Calcium 7.6 L AST ALT Alkaline Phosphatase Total Creatine Kinase CK-MB (CK-2) Total Protein Albumin 08/02/16 08/02/16 08/02/16 15:53 17:33 21:39 WBC RBC Hgb Hct MCV MCH MCHC RDW Plt Count Lymph % (Auto) [place] % (Auto) Lymph # [place] # Seg Neutrophils % Seg Neuts % (Manual) Lymphocytes % (Manual) Monocytes % (Manual) Seg Neutrophils # Man Lymphocytes # (Manual) PT INR APTT POC ABG pH POC ABG pCO2 POC ABG pO2 Sodium Carbon Dioxide BUN Creatinine Glucose POC Glucose 205 H 250 H 282 H Calcium AST ALT Alkaline Phosphatase Total Creatine Kinase CK-MB (CK-2) Total Protein Albumin 08/03/16 08/03/16 08/03/16 02:28 05:47 07:05 WBC RBC 3.32 L Hgb 8.4 L Hct 26.5 L MCV 80 L MCH 25 L MCHC RDW 18.7 H Plt Count 112 L Lymph % (Auto) 12.5 L [place] % (Auto) 10.2 H Lymph # 1.0 L [place] # Seg Neutrophils % 75.9 H Seg Neuts % (Manual) Lymphocytes % (Manual) Monocytes % (Manual) Seg Neutrophils # Man Lymphocytes # (Manual) PT INR APTT POC ABG pH POC ABG pCO2 POC ABG pO2 Sodium Carbon Dioxide BUN Creatinine Glucose POC Glucose 317 H 253 H Calcium AST ALT Alkaline Phosphatase Total Creatine Kinase CK-MB (CK-2) Total Protein Albumin 08/03/16 08/03/16 08/03/16 07:05 09:50 14:07 WBC RBC Hgb Hct MCV MCH MCHC RDW Plt Count Lymph % (Auto) [place] % (Auto) Lymph # [place] # Seg Neutrophils % Seg Neuts % (Manual) Lymphocytes % (Manual) Monocytes % (Manual) Seg Neutrophils # Man Lymphocytes # (Manual) PT INR APTT POC ABG pH POC ABG pCO2 POC ABG pO2 Sodium 132 L Carbon Dioxide 20 L BUN 42 H Creatinine Glucose 243 H POC Glucose 332 H 345 H Calcium 6.8 L AST ALT Alkaline Phosphatase Total Creatine Kinase CK-MB (CK-2) Total Protein Albumin 08/03/16 08/03/16 08/04/16 17:38 21:36 02:18 WBC RBC Hgb Hct MCV MCH MCHC RDW Plt Count Lymph % (Auto) [place] % (Auto) Lymph # [place] # Seg Neutrophils % Seg Neuts % (Manual) Lymphocytes % (Manual) Monocytes % (Manual) Seg Neutrophils # Man Lymphocytes # (Manual) PT INR APTT POC ABG pH POC ABG pCO2 POC ABG pO2 Sodium Carbon Dioxide BUN Creatinine Glucose POC Glucose 262 H 260 H 256 H Calcium AST ALT Alkaline Phosphatase Total Creatine Kinase CK-MB (CK-2) Total Protein Albumin 08/04/16 08/04/16 08/04/16 05:41 06:00 10:20 WBC RBC Hgb Hct MCV MCH MCHC RDW Plt Count Lymph % (Auto) [place] % (Auto) Lymph # [place] # Seg Neutrophils % Seg Neuts % (Manual) Lymphocytes % (Manual) Monocytes % (Manual) Seg Neutrophils # Man Lymphocytes # (Manual) PT INR APTT POC ABG pH POC ABG pCO2 POC ABG pO2 Sodium Carbon Dioxide BUN 34 H Creatinine 0.7 L Glucose 237 H POC Glucose 265 H 266 H Calcium 7.9 L D AST ALT Alkaline Phosphatase Total Creatine Kinase CK-MB (CK-2) Total Protein Albumin 08/04/16 08/04/16 08/04/16 14:20 17:31 21:52 WBC RBC Hgb Hct MCV MCH MCHC RDW Plt Count Lymph % (Auto) [place] % (Auto) Lymph # [place] # Seg Neutrophils % Seg Neuts % (Manual) Lymphocytes % (Manual) Monocytes % (Manual) Seg Neutrophils # Man Lymphocytes # (Manual) PT INR APTT POC ABG pH POC ABG pCO2 POC ABG pO2 Sodium Carbon Dioxide BUN Creatinine Glucose POC Glucose 302 H 337 H 340 H Calcium AST ALT Alkaline Phosphatase Total Creatine Kinase CK-MB (CK-2) Total Protein Albumin 08/05/16 08/05/16 08/05/16 01:43 05:00 05:00 WBC RBC Hgb 9.5 L Hct 30.1 L MCV 81 L MCH 26 L MCHC RDW 19.1 H Plt Count 112 L Lymph % (Auto) [place] % (Auto) Lymph # [place] # Seg Neutrophils % Seg Neuts % (Manual) Lymphocytes % (Manual) Monocytes % (Manual) Seg Neutrophils # Man Lymphocytes # (Manual) PT INR APTT POC ABG pH POC ABG pCO2 POC ABG pO2 Sodium Carbon Dioxide BUN 27 H Creatinine 0.7 L Glucose 212 H POC Glucose 247 H Calcium 8.3 L AST 92 H ALT 81 H Alkaline Phosphatase 629 H Total Creatine Kinase CK-MB (CK-2) Total Protein 5.9 L Albumin 2.2 L 08/05/16 08/05/16 08/05/16 05:14 05:19 10:12 WBC RBC Hgb Hct MCV MCH MCHC RDW Plt Count Lymph % (Auto) [place] % (Auto) Lymph # [place] # Seg Neutrophils % Seg Neuts % (Manual) Lymphocytes % (Manual) Monocytes % (Manual) Seg Neutrophils # Man Lymphocytes # (Manual) PT INR APTT POC ABG pH 7.469 H POC ABG pCO2 POC ABG pO2 109 H Sodium Carbon Dioxide BUN Creatinine Glucose POC Glucose 208 H 206 H Calcium AST ALT Alkaline Phosphatase Total Creatine Kinase CK-MB (CK-2) Total Protein Albumin 08/05/16 08/05/16 08/05/16 13:54 18:31 22:06 WBC RBC Hgb Hct MCV MCH MCHC RDW Plt Count Lymph % (Auto) [place] % (Auto) Lymph # [place] # Seg Neutrophils % Seg Neuts % (Manual) Lymphocytes % (Manual) Monocytes % (Manual) Seg Neutrophils # Man Lymphocytes # (Manual) PT INR APTT POC ABG pH POC ABG pCO2 POC ABG pO2 Sodium Carbon Dioxide BUN Creatinine Glucose POC Glucose 226 H 229 H 245 H Calcium AST ALT Alkaline Phosphatase Total Creatine Kinase CK-MB (CK-2) Total Protein Albumin 08/06/16 08/06/16 08/06/16 02:03 05:31 05:42 WBC RBC Hgb Hct MCV MCH MCHC RDW Plt Count Lymph % (Auto) [place] % (Auto) Lymph # [place] # Seg Neutrophils % Seg Neuts % (Manual) Lymphocytes % (Manual) Monocytes % (Manual) Seg Neutrophils # Man Lymphocytes # (Manual) PT INR APTT POC ABG pH POC ABG pCO2 POC ABG pO2 62 L Sodium Carbon Dioxide BUN Creatinine Glucose POC Glucose 237 H 205 H Calcium AST ALT Alkaline Phosphatase Total Creatine Kinase CK-MB (CK-2) Total Protein Albumin 08/06/16 08/06/16 08/06/16 09:36 11:30 14:23 WBC RBC Hgb Hct MCV MCH MCHC RDW Plt Count Lymph % (Auto) [place] % (Auto) Lymph # [place] # Seg Neutrophils % Seg Neuts % (Manual) Lymphocytes % (Manual) Monocytes % (Manual) Seg Neutrophils # Man Lymphocytes # (Manual) PT 18.9 H INR 1.59 H APTT 39.7 H POC ABG pH POC ABG pCO2 POC ABG pO2 Sodium Carbon Dioxide BUN Creatinine Glucose POC Glucose 279 H 264 H Calcium AST ALT Alkaline Phosphatase Total Creatine Kinase CK-MB (CK-2) Total Protein Albumin 08/06/16 08/07/16 08/07/16 18:07 03:01 05:18 WBC RBC Hgb Hct MCV MCH MCHC RDW Plt Count Lymph % (Auto) [place] % (Auto) Lymph # [place] # Seg Neutrophils % Seg Neuts % (Manual) Lymphocytes % (Manual) Monocytes % (Manual) Seg Neutrophils # Man Lymphocytes # (Manual) PT INR APTT POC ABG pH 7.459 H POC ABG pCO2 POC ABG pO2 Sodium Carbon Dioxide BUN Creatinine Glucose POC Glucose 176 H 172 H Calcium AST ALT Alkaline Phosphatase Total Creatine Kinase CK-MB (CK-2) Total Protein Albumin 08/07/16 08/07/16 08/07/16 05:32 07:30 07:30 WBC RBC 3.39 L Hgb 8.6 L Hct 27.2 L MCV 80 L MCH 25 L MCHC RDW 19.1 H Plt Count 136 L Lymph % (Auto) [place] % (Auto) Lymph # [place] # Seg Neutrophils % Seg Neuts % (Manual) 84.0 H Lymphocytes % (Manual) 4.0 L Monocytes % (Manual) 8.0 H Seg Neutrophils # Man 8.2 H Lymphocytes # (Manual) 0.4 L PT 17.2 H INR 1.41 H APTT POC ABG pH POC ABG pCO2 POC ABG pO2 Sodium Carbon Dioxide BUN Creatinine Glucose POC Glucose 204 H Calcium AST ALT Alkaline Phosphatase Total Creatine Kinase CK-MB (CK-2) Total Protein Albumin 08/07/16 07:30 WBC RBC Hgb Hct MCV MCH MCHC RDW Plt Count Lymph % (Auto) [place] % (Auto) Lymph # [place] # Seg Neutrophils % Seg Neuts % (Manual) Lymphocytes % (Manual) Monocytes % (Manual) Seg Neutrophils # Man Lymphocytes # (Manual) PT INR APTT POC ABG pH POC ABG pCO2 POC ABG pO2 Sodium Carbon Dioxide BUN 27 H Creatinine 0.7 L Glucose 201 H POC Glucose Calcium 7.9 L AST 73 H ALT 74 H Alkaline Phosphatase 595 H Total Creatine Kinase CK-MB (CK-2) Total Protein 5.1 L Albumin 1.8 L
--- NOTE | 2016-08-07 11:55 | Progress Note ---
Assessment and Plan 76-year-old man with a history of hypertension, diabetes, hyperlipidemia, BPH, was brought to the emergency room because son found him on the floor with unresponsiveness. Patient was intubated in the emergency room. MRI of brain showed b/l acute CVA. Tracheal aspirate growing Pseudomonas Aeruginosa and Escherichia Coli. Failing weaning trial from vent, may need trach. 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 on admission - EEG showed no seizure - ID recommended LP for further assessment Acut b/l CVA - likely present since admission - will add aspirin and lipitor - neuro following Elevated LFTs - Obtained ultrasound of the abdomen - US showed cholelithiasis without cholecystitis - monitor LFT as he will be on statin Hypertension - cont monitor, provide Bp meds with TF Diabetes - SSI Hyperlipidemia - cont statin BPH - monitor urine output Sepsis with PNA - pt has elevated white count on admission and tachycardia - tracheal aspirate grew Pseudomonas, resistant to zosyn - will follow ID recommendation Prognosis guarded Microbiology 08/03/16 Unknown Tracheal Aspirate Sputum Culture - Final Pseudomonas Aeruginosa Escherichia Coli 08/01/16 13:18 Peripheral/Venous Blood Culture - Final NO GROWTH AFTER 5 DAYS 08/01/16 10:57 Peripheral/Venous Blood Culture - Final NO GROWTH AFTER 5 DAYS 07/30/16 23:34 Tracheal Aspirate Sputum Culture - Final Subjective Date of service: 08/07/16 Principal diagnosis: acute respiratory failure Interval history: Pt seen and examined Pt intubated without any sedation MRI showed b/l acute cva getting LP today Objective - Exam Narrative Exam: General appearance: Present: no acute distress, well-nourished, other (intubated , unresponsive) - EENT Eyes: no scleral icterus, no conjunctival injection ENT: dentition normal, no thrush Ears: bilateral: normal - Neck Neck: no rigidity, no enlarged thyroid, no masses or JVD - Respiratory Respiratory effort: other (on vent) Respiratory: bilateral: CTA - Breasts Breasts: normal - Cardiovascular Heart Sounds: Present: S1 & S2 (tachycardic). Absent: gallop, rub Extremities: pulses intact, No edema, normal color - Gastrointestinal General gastrointestinal: Present: soft, non-distended, normal bowel sounds - Integumentary Integumentary: clear, dry - Neurologic Neurologic: other (does not follow commend) - Constitutional Vitals: Vital Signs - 12hr 08/07/16 08/07/16 08/07/16 00:00 00:15 00:30 Temperature 100.0 F H Pulse Rate 109 H 97 H 102 H Respiratory 17 16 Rate Blood Pressure 118/53 109/57 108/55 O2 Sat by Pulse 98 100 96 Oximetry 08/07/16 08/07/16 08/07/16 01:00 01:30 02:00 Temperature Pulse Rate 108 H 101 H 102 H Respiratory 17 15 16 Rate Blood Pressure 109/57 118/55 117/56 O2 Sat by Pulse 98 97 96 Oximetry 08/07/16 08/07/16 08/07/16 02:30 03:00 03:30 Temperature Pulse Rate 112 H 95 H 96 H Respiratory 17 16 15 Rate Blood Pressure 123/58 115/56 119/55 O2 Sat by Pulse 97 98 96 Oximetry 08/07/16 08/07/16 08/07/16 04:00 04:31 05:00 Temperature 99.9 F H Pulse Rate 100 H 97 H 89 Respiratory 16 16 18 Rate Blood Pressure 122/61 111/51 108/56 O2 Sat by Pulse 98 96 98 Oximetry 08/07/16 08/07/16 08/07/16 05:19 05:30 06:01 Temperature Pulse Rate 97 H 96 H 94 H Respiratory 24 24 23 Rate Blood Pressure 108/56 117/55 111/51 O2 Sat by Pulse 100 96 96 Oximetry 08/07/16 08/07/16 08/07/16 06:30 07:00 07:30 Temperature Pulse Rate 98 H 101 H 101 H Respiratory 20 16 22 Rate Blood Pressure 116/55 117/54 118/49 O2 Sat by Pulse 95 97 98 Oximetry 08/07/16 08/07/16 08/07/16 07:31 07:52 08:00 Temperature 98.4 F Pulse Rate 98 H 104 H Respiratory 21 18 Rate Blood Pressure 118/49 123/55 O2 Sat by Pulse 100 97 Oximetry 08/07/16 08/07/16 08/07/16 08:30 09:00 09:30 Temperature Pulse Rate 97 H 92 H 96 H Respiratory 21 22 19 Rate Blood Pressure 113/57 122/57 119/57 O2 Sat by Pulse 97 98 97 Oximetry 08/07/16 08/07/16 08/07/16 10:00 10:30 11:09 Temperature Pulse Rate 98 H 91 H 93 H Respiratory 21 20 21 Rate Blood Pressure 123/58 107/54 115/47 O2 Sat by Pulse 98 98 99 Oximetry - Labs CBC & Chem 7: 08/07/16 07:30 08/07/16 07:30 Labs: Abnormal lab results 08/06/16 08/06/16 08/06/16 Range/Units 11:30 14:23 18:07 RBC (3.65-5.03) M/mm3 Hgb (11.8-15.2) gm/dl Hct (35.5-45.6) % MCV (84-94) fl MCH (28-32) pg RDW (13.2-15.2) % Plt Count (140-440) K/mm3 Seg Neuts % (Manual) (40.0-70.0) % Lymphocytes % (Manual) (13.4-35.0) % Monocytes % (Manual) (0.0-7.3) % Seg Neutrophils # Man (1.8-7.7) K/mm3 Lymphocytes # (Manual) (1.2-5.4) K/mm3 PT 18.9 H (12.2-14.9) Sec. INR 1.59 H (0.87-1.13) APTT 39.7 H (24.2-36.6) Sec. POC ABG pH (7.35-7.45) BUN (9-20) mg/dL Creatinine (0.8-1.5) mg/dL Glucose (75-100) mg/dL POC Glucose 264 H 176 H (70-105) Calcium (8.4-10.2) mg/dL AST (5-40) units/L ALT (7-56) units/L Alkaline Phosphatase (35-129) units/L Total Protein (6.3-8.2) g/dL Albumin (3.9-5) g/dL 08/07/16 08/07/16 08/07/16 Range/Units 03:01 05:18 05:32 RBC (3.65-5.03) M/mm3 Hgb (11.8-15.2) gm/dl Hct (35.5-45.6) % MCV (84-94) fl MCH (28-32) pg RDW (13.2-15.2) % Plt Count (140-440) K/mm3 Seg Neuts % (Manual) (40.0-70.0) % Lymphocytes % (Manual) (13.4-35.0) % Monocytes % (Manual) (0.0-7.3) % Seg Neutrophils # Man (1.8-7.7) K/mm3 Lymphocytes # (Manual) (1.2-5.4) K/mm3 PT (12.2-14.9) Sec. INR (0.87-1.13) APTT (24.2-36.6) Sec. POC ABG pH 7.459 H (7.35-7.45) BUN (9-20) mg/dL Creatinine (0.8-1.5) mg/dL Glucose (75-100) mg/dL POC Glucose 172 H 204 H (70-105) Calcium (8.4-10.2) mg/dL AST (5-40) units/L ALT (7-56) units/L Alkaline Phosphatase (35-129) units/L Total Protein (6.3-8.2) g/dL Albumin (3.9-5) g/dL 08/07/16 08/07/16 08/07/16 Range/Units 07:30 07:30 07:30 RBC 3.39 L (3.65-5.03) M/mm3 Hgb 8.6 L (11.8-15.2) gm/dl Hct 27.2 L (35.5-45.6) % MCV 80 L (84-94) fl MCH 25 L (28-32) pg RDW 19.1 H (13.2-15.2) % Plt Count 136 L (140-440) K/mm3 Seg Neuts % (Manual) 84.0 H (40.0-70.0) % Lymphocytes % (Manual) 4.0 L (13.4-35.0) % Monocytes % (Manual) 8.0 H (0.0-7.3) % Seg Neutrophils # Man 8.2 H (1.8-7.7) K/mm3 Lymphocytes # (Manual) 0.4 L (1.2-5.4) K/mm3 PT 17.2 H (12.2-14.9) Sec. INR 1.41 H (0.87-1.13) APTT (24.2-36.6) Sec. POC ABG pH (7.35-7.45) BUN 27 H (9-20) mg/dL Creatinine 0.7 L (0.8-1.5) mg/dL Glucose 201 H (75-100) mg/dL POC Glucose (70-105) Calcium 7.9 L (8.4-10.2) mg/dL AST 73 H (5-40) units/L ALT 74 H (7-56) units/L Alkaline Phosphatase 595 H (35-129) units/L Total Protein 5.1 L (6.3-8.2) g/dL Albumin 1.8 L (3.9-5) g/dL
[2016-08-07 12:37] LABS: Glucose,CSF 90 mg/dL
[2016-08-07 12:48] LABS: Appearance,CSF Clear
[2016-08-07 12:49] LABS: White Blood Cell,CSF 2 /mm3 (1-10)
[2016-08-07 13:27] LABS: Basophils CSF 0 %; CSF Diff Status Complete
--- NOTE | 2016-08-07 13:28 | XRay Report ---
Single view abdomen. History: Confirm NG tube. Findings: Tip of NG tube is noted in stomach. Next Impression: Tip of NG tube is noted in stomach.
--- NOTE | 2016-08-07 13:46 | Fluoroscopy Report ---
FLUOROSCOPY LUMBAR PUNCTURE History: Altered mental status Description of procedure: Informed consent was obtained from a family member. Sterile technique was utilized. 1% lidocaine for skin anesthesia. Using fluoroscopy guidance, lumbar puncture was performed in the left lateral decubitus position at the L2-3 level. There was spontaneous return of blood-tinged CSF which cleared quickly. Opening pressure measured 12.5 cm of water. Approximately 8 cc of CSF fluid was collected in 4 tubes and sent to laboratory for analysis. No complications. Impression: Successful fluoroscopy guided lumbar puncture. The opening pressure measured 12.5 cm of water.
[2016-08-07] MEDS: VANCOMYCIN 1,500 MG in NACL 0.9% 500 ML 500 ML IV SCH (13:53)
--- NOTE | 2016-08-07 17:04 | Progress Note ---
Assessment and Plan - Patient Problems (1) Altered mental status Current Visit: Yes Status: Acute Qualifiers: Altered mental status type: stupor Coma depth: C Coma timing: C Qualified Code(s): R40.1 - Stupor Plan to address problem: 1. CSF Cryptococcal antigen is negative. 2. Await further CSF study results. (2) Acute respiratory failure Current Visit: Yes Status: Acute Qualifiers: Respiratory failure complication: hypoxia Qualified Code(s): J96.01 - Acute respiratory failure with hypoxia Plan to address problem: 1. Possible tracheobronchitis due to E coli and Pseudomonas aeruginosa. 2. Will change Zosyn to Meropenem for more reliable coverage. 3. Follow fevers for other localizing signs. Subjective Date of service: 08/07/16 Principal diagnosis: acute respiratory failure Interval history: Mr. Gray has intermittent fevers, to Tmax 100.9 deg F in past 24 hours. Patient completed an LP earlier today. Objective - Constitutional Vitals: Vital Signs Temp Pulse Resp BP Pulse Ox 98.0 F 98 H 21 138/59 96 08/07/16 12:35 08/07/16 15:30 08/07/16 15:30 08/07/16 15:30 08/07/16 15:30 Temperature -Last 24 Hours Temperature 98.0 F Temperature 98.4 F Temperature 99.9 F Temperature 100.0 F Temperature 99.8 F General appearance: Present: well-nourished, other (intubated, FiO2 30%) - EENT ENT: other (ET and NG tubes in place) - Respiratory Respiratory: bilateral: rhonchi (faint upper lobes), negative: rales, wheezing - Cardiovascular Rhythm: regular Heart Sounds: Present: S1 & S2 Extremity abnormal: edema (trace all extremities) - Gastrointestinal General gastrointestinal: Present: soft, distended (mild distention), normal bowel sounds Rectal Exam: other (rectal tube with watery stools) - Genitourinary Male genitourinary: normal (Carter with yellow urine) - Integumentary Integumentary: clear, no jaundice, no rash - Additional findings Additional findings: PICC left arm, no inflammation - Labs CBC & Chem 7: 08/07/16 07:30 08/07/16 07:30 Labs: Abnormal lab results 08/06/16 08/06/16 08/07/16 Range/Units 14:23 18:07 03:01 RBC (3.65-5.03) M/mm3 Hgb (11.8-15.2) gm/dl Hct (35.5-45.6) % MCV (84-94) fl MCH (28-32) pg RDW (13.2-15.2) % Plt Count (140-440) K/mm3 Seg Neuts % (Manual) (40.0-70.0) % Lymphocytes % (Manual) (13.4-35.0) % Monocytes % (Manual) (0.0-7.3) % Seg Neutrophils # Man (1.8-7.7) K/mm3 Lymphocytes # (Manual) (1.2-5.4) K/mm3 PT (12.2-14.9) Sec. INR (0.87-1.13) POC ABG pH (7.35-7.45) BUN (9-20) mg/dL Creatinine (0.8-1.5) mg/dL Glucose (75-100) mg/dL POC Glucose 264 H 176 H 172 H (70-105) Calcium (8.4-10.2) mg/dL AST (5-40) units/L ALT (7-56) units/L Alkaline Phosphatase (35-129) units/L Total Protein (6.3-8.2) g/dL Albumin (3.9-5) g/dL 08/07/16 08/07/16 08/07/16 Range/Units 05:18 05:32 07:30 RBC 3.39 L (3.65-5.03) M/mm3 Hgb 8.6 L (11.8-15.2) gm/dl Hct 27.2 L (35.5-45.6) % MCV 80 L (84-94) fl MCH 25 L (28-32) pg RDW 19.1 H (13.2-15.2) % Plt Count 136 L (140-440) K/mm3 Seg Neuts % (Manual) 84.0 H (40.0-70.0) % Lymphocytes % (Manual) 4.0 L (13.4-35.0) % Monocytes % (Manual) 8.0 H (0.0-7.3) % Seg Neutrophils # Man 8.2 H (1.8-7.7) K/mm3 Lymphocytes # (Manual) 0.4 L (1.2-5.4) K/mm3 PT (12.2-14.9) Sec. INR (0.87-1.13) POC ABG pH 7.459 H (7.35-7.45) BUN (9-20) mg/dL Creatinine (0.8-1.5) mg/dL Glucose (75-100) mg/dL POC Glucose 204 H (70-105) Calcium (8.4-10.2) mg/dL AST (5-40) units/L ALT (7-56) units/L Alkaline Phosphatase (35-129) units/L Total Protein (6.3-8.2) g/dL Albumin (3.9-5) g/dL 08/07/16 08/07/16 08/07/16 Range/Units 07:30 07:30 10:03 RBC (3.65-5.03) M/mm3 Hgb (11.8-15.2) gm/dl Hct (35.5-45.6) % MCV (84-94) fl MCH (28-32) pg RDW (13.2-15.2) % Plt Count (140-440) K/mm3 Seg Neuts % (Manual) (40.0-70.0) % Lymphocytes % (Manual) (13.4-35.0) % Monocytes % (Manual) (0.0-7.3) % Seg Neutrophils # Man (1.8-7.7) K/mm3 Lymphocytes # (Manual) (1.2-5.4) K/mm3 PT 17.2 H (12.2-14.9) Sec. INR 1.41 H (0.87-1.13) POC ABG pH (7.35-7.45) BUN 27 H (9-20) mg/dL Creatinine 0.7 L (0.8-1.5) mg/dL Glucose 201 H (75-100) mg/dL POC Glucose 233 H (70-105) Calcium 7.9 L (8.4-10.2) mg/dL AST 73 H (5-40) units/L ALT 74 H (7-56) units/L Alkaline Phosphatase 595 H (35-129) units/L Total Protein 5.1 L (6.3-8.2) g/dL Albumin 1.8 L (3.9-5) g/dL 08/07/16 08/07/16 Range/Units 14:35 16:09 RBC (3.65-5.03) M/mm3 Hgb (11.8-15.2) gm/dl Hct (35.5-45.6) % MCV (84-94) fl MCH (28-32) pg RDW (13.2-15.2) % Plt Count (140-440) K/mm3 Seg Neuts % (Manual) (40.0-70.0) % Lymphocytes % (Manual) (13.4-35.0) % Monocytes % (Manual) (0.0-7.3) % Seg Neutrophils # Man (1.8-7.7) K/mm3 Lymphocytes # (Manual) (1.2-5.4) K/mm3 PT (12.2-14.9) Sec. INR (0.87-1.13) POC ABG pH (7.35-7.45) BUN (9-20) mg/dL Creatinine (0.8-1.5) mg/dL Glucose (75-100) mg/dL POC Glucose 255 H 259 H (70-105) Calcium (8.4-10.2) mg/dL AST (5-40) units/L ALT (7-56) units/L Alkaline Phosphatase (35-129) units/L Total Protein (6.3-8.2) g/dL Albumin (3.9-5) g/dL Microbiology 08/04/16 11:54 Cerebral Spinal Fluid Cryptococcal Antigen - Final (negative) 08/04/16 11:54 Cerebral Spinal Fluid CSF Culture - Preliminary 08/03/16 Unknown Tracheal Aspirate Sputum Culture - Final Pseudomonas Aeruginosa Escherichia Coli 08/01/16 13:18 Peripheral/Venous Blood Culture - Final NO GROWTH AFTER 5 DAYS 08/01/16 10:57 Peripheral/Venous Blood Culture - Final NO GROWTH AFTER 5 DAYS 07/30/16 23:34 Tracheal Aspirate Sputum Culture - Final - Imaging and cardiology Abdominal x-ray: report reviewed
[2016-08-07] MEDS: MERREM 1,000 MG in NACL 0.9% 100 ML IV SCH (18:57)
[2016-08-07] MEDS: NACL 0.45% 1000 ML 1,000 ML IV SCH (21:44)
[2016-08-08] MEDS: MERREM 1,000 MG in NACL 0.9% 100 ML IV SCH ×4 (00:30→18:04)
[2016-08-08] MEDS: ZOVIRAX IV SCH ×3 (06:06→21:39)
[2016-08-08] MEDS: NACL 0.9% IV SCH ×3 (06:06→21:39)
[2016-08-08 06:31] LABS: ISTAT Base Excess 4; ISTAT HCO3 27.7; ISTAT PCO2 38.9 (35-45); ISTAT PO2 74 (80-105); ISTAT SO2 95; ISTAT TCO2 29
[2016-08-08 08:43] LABS: Hematocrit 27.1 % (35.5-45.6); Hemoglobin 8.5 gm/dl (11.8-15.2); Mean Corpuscular HGB Conc 31 % (32-34); Mean Corpuscular Volume 81 fl (84-94); Platelet Count 129 K/mm3 (140-440); Red Blood Count 3.36 M/mm3 (3.65-5.03); Red Cell Distribution Width 18.8 % (13.2-15.2); White Blood Count 8.7 K/mm3 (4.5-11.0)
[2016-08-08 08:51] LABS: Alanine Aminotransferase 71 units/L (7-56); Albumin 1.6 g/dL (3.9-5); Albumin/Globulin Ratio 0.5 %; Alkaline Phosphatase 658 units/L (35-129); Anion Gap 14 mmol/L; BUN/Creatinine Ratio 37.14; Blood Urea Nitrogen 26 mg/dL (9-20); Calcium 7.6 mg/dL (8.4-10.2); Carbon Dioxide 26 mmol/L (22-30); Chloride 101.4 mmol/L (98-107); Glucose 233 mg/dL (75-100); Potassium 3.9 mmol/L (3.6-5.0); Sodium 137 mmol/L (137-145)
[2016-08-08 08:57] LABS: Mean Corpuscular Hemoglobin 25 pg (28-32)
--- NOTE | 2016-08-08 09:30 | XRay Report ---
AP CHEST: HISTORY: Hypoxemia Lines and support devices remain in good position. Mild bibasilar atelectatic changes have developed since 08/06/16. The upper lung zones remain clear. No consolidation, large pleural effusion or pneumothorax is identified. Heart and mediastinal structures are within normal limits.
--- NOTE | 2016-08-08 09:35 | Progress Note ---
Assessment and Plan Assessment and plan: Patient is 76 year-old man with a history of hypertension, diabetes, hyperlipidemia, BPH, was brought to the emergency room because son found him on the floor unresponsive. Patient was intubated in the emergency room. MRI of brain showed b/l acute CVA. Tracheal aspirate growing Pseudomonas Aeruginosa and Escherichia Coli. Failing weaning trial from vent, may need trach. 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 - Continue Aspirin - neuro following Elevated LFTs - Obtained ultrasound of the abdomen - US showed cholelithiasis without cholecystitis - monitor LFT as he is on statin Hypertension - cont monitor, provide Bp meds with TF Diabetes mellitus type 2 Hyperlipidemia - cont statin BPH - monitor urine output Sepsis with PNA - pt has elevated white count on admission and tachycardia - tracheal aspirate grew Pseudomonas, resistant to zosyn -Now on Meropenem and acyclovir -ID Physician following Prognosis guarded History Interval history: Still intubated, Fever Hospitalist Physical - Physical exam Narrative exam: Gen Appearance: intubated, on vent HEENT: normocephalic, atraumatic Neck: no JVD Lungs: clear to auscultation bilaterally, no crackles or wheezes Heart: S1 and S2 regular, no murmurs or gallop Abdomen: Soft, non-tender, non-distended, normal bowel sounds Extremity:No edema, clubbing or cyanosis Neuro : Intubated, sedated - Constitutional Vitals: Temp Pulse Resp BP Pulse Ox 99.9 F H 94 H 19 132/56 99 08/08/16 03:48 08/08/16 08:51 08/08/16 08:51 08/08/16 08:51 08/08/16 08:51 General appearance: Present: well-nourished, other (intubated, FiO2 30%) Results - Labs CBC & Chem 7: 08/08/16 07:40 08/08/16 07:40 Labs: Laboratory Last Values WBC 8.7 K/mm3 (4.5-11.0) 08/08/16 07:40 RBC 3.36 M/mm3 (3.65-5.03) L 08/08/16 07:40 Hgb 8.5 gm/dl (11.8-15.2) L 08/08/16 07:40 Hct 27.1 % (35.5-45.6) L 08/08/16 07:40 MCV 81 fl (84-94) L 08/08/16 07:40 MCH 25 pg (28-32) L 08/08/16 07:40 MCHC 31 % (32-34) L 08/08/16 07:40 RDW 18.8 % (13.2-15.2) H 08/08/16 07:40 Plt Count 129 K/mm3 (140-440) L 08/08/16 07:40 Lymph % (Auto) Contact Lens Lathe Operator 08/08/16 07:40 [place] % (Auto) Contact Lens Lathe Operator 08/08/16 07:40 Eos % (Auto) Contact Lens Lathe Operator 08/08/16 07:40 Baso % (Auto) Contact Lens Lathe Operator 08/08/16 07:40 Lymph # Contact Lens Lathe Operator 08/08/16 07:40 [place] # Contact Lens Lathe Operator 08/08/16 07:40 Eos # Contact Lens Lathe Operator 08/08/16 07:40 Baso # Contact Lens Lathe Operator 08/08/16 07:40 Add Manual Diff Complete 08/07/16 07:30 Total Counted 100 08/07/16 07:30 Seg Neutrophils % Contact Lens Lathe Operator 08/08/16 07:40 Seg Neuts % (Manual) 84.0 % (40.0-70.0) H 08/07/16 07:30 Band Neutrophils % 1.0 % 08/07/16 07:30 Lymphocytes % (Manual) 4.0 % (13.4-35.0) L 08/07/16 07:30 Reactive Lymphs % (Man) 0 % 08/07/16 07:30 Monocytes % (Manual) 8.0 % (0.0-7.3) H 08/07/16 07:30 Eosinophils % (Manual) 1.0 % (0.0-4.3) 08/07/16 07:30 Basophils % (Manual) 1.0 % (0.0-1.8) 08/07/16 07:30 Metamyelocytes % 1.0 % 08/07/16 07:30 Myelocytes % 0 % 08/07/16 07:30 Promyelocytes % 0 % 08/07/16 07:30 Blast Cells % 0 % 08/07/16 07:30 Nucleated RBC % Not Reportable 08/07/16 07:30 Seg Neutrophils # Contact Lens Lathe Operator 08/08/16 07:40 Seg Neutrophils # Man 8.2 K/mm3 (1.8-7.7) H 08/07/16 07:30 Band Neutrophils # 0.1 K/mm3 08/07/16 07:30 Lymphocytes # (Manual) 0.4 K/mm3 (1.2-5.4) L 08/07/16 07:30 Abs React Lymphs (Man) 0.0 K/mm3 08/07/16 07:30 Monocytes # (Manual) 0.8 K/mm3 (0.0-0.8) 08/07/16 07:30 Eosinophils # (Manual) 0.1 K/mm3 (0.0-0.4) 08/07/16 07:30 Basophils # (Manual) 0.1 K/mm3 (0.0-0.1) 08/07/16 07:30 Metamyelocytes # 0.1 K/mm3 08/07/16 07:30 Myelocytes # 0.0 K/mm3 08/07/16 07:30 Promyelocytes # 0.0 K/mm3 08/07/16 07:30 Blast Cells # 0.0 K/mm3 08/07/16 07:30 WBC Morphology Not Reportable 08/07/16 07:30 Hypersegmented Neuts Not Reportable 08/07/16 07:30 Hyposegmented Neuts Not Reportable 08/07/16 07:30 Hypogranular Neuts Not Reportable 08/07/16 07:30 Smudge Cells Not Reportable 08/07/16 07:30 Toxic Granulation Not Reportable 08/07/16 07:30 Toxic Vacuolation Not Reportable 08/07/16 07:30 Dohle Bodies Not Reportable 08/07/16 07:30 Pelger-Huet Anomaly Not Reportable 08/07/16 07:30 Leta Rods Not Reportable 08/07/16 07:30 Platelet Estimate Consistent w auto 08/07/16 07:30 Clumped Platelets Not Reportable 08/07/16 07:30 Plt Clumps, EDTA Not Reportable 08/07/16 07:30 Large Platelets Not Reportable 08/07/16 07:30 Giant Platelets Not Reportable 08/07/16 07:30 Platelet Satelliting Not Reportable 08/07/16 07:30 Plt Morphology Comment Not Reportable 08/07/16 07:30 RBC Morphology Not Reportable 08/07/16 07:30 Dimorphic RBCs Not Reportable 08/07/16 07:30 Polychromasia Few 08/07/16 07:30 Hypochromasia Few 08/07/16 07:30 Poikilocytosis Not Reportable 08/07/16 07:30 Anisocytosis 1+ 08/07/16 07:30 Microcytosis Not Reportable 08/07/16 07:30 Macrocytosis Few 08/07/16 07:30 Spherocytes Not Reportable 08/07/16 07:30 Pappenheimer Bodies Not Reportable 08/07/16 07:30 Sickle Cells Not Reportable 08/07/16 07:30 Target Cells Few 08/07/16 07:30 Tear Drop Cells Few 08/07/16 07:30 Ovalocytes Not Reportable 08/07/16 07:30 Helmet Cells Not Reportable 08/07/16 07:30 [place] Bodies Not Reportable 08/07/16 07:30 [place] Rings Not Reportable 08/07/16 07:30 [place] Cells Not Reportable 08/07/16 07:30 Bite Cells Not Reportable 08/07/16 07:30 Crenated Cell Not Reportable 08/07/16 07:30 Elliptocytes Not Reportable 08/07/16 07:30 Acanthocytes (Spur) Not Reportable 08/07/16 07:30 Rouleaux Not Reportable 08/07/16 07:30 Hemoglobin C Crystals Not Reportable 08/07/16 07:30 Schistocytes Not Reportable 08/07/16 07:30 Malaria parasites Not Reportable 08/07/16 07:30 Reece Bodies Not Reportable 08/07/16 07:30 Hem Pathologist Commnt No 08/07/16 07:30 PT 17.2 Sec. (12.2-14.9) H 08/07/16 07:30 INR 1.41 (0.87-1.13) H 08/07/16 07:30 APTT 36.5 Sec. (24.2-36.6) 08/07/16 07:30 POC ABG pH 7.460 (7.35-7.45) H 08/08/16 06:23 POC ABG pCO2 38.9 (35-45) 08/08/16 06:23 POC ABG pO2 74 (80-105) L 08/08/16 06:23 POC ABG HCO3 27.7 08/08/16 06:23 POC ABG Total CO2 29 08/08/16 06:23 POC ABG O2 Sat 95 08/08/16 06:23 POC ABG Base Excess 4 08/08/16 06:23 VBG pH 7.447 (7.320-7.420) H 07/31/16 00:13 FiO2 60 % 08/08/16 06:23 Sodium 137 mmol/L (137-145) 08/08/16 07:40 Potassium 3.9 mmol/L (3.6-5.0) 08/08/16 07:40 Chloride 101.4 mmol/L (98-107) 08/08/16 07:40 Carbon Dioxide 26 mmol/L (22-30) 08/08/16 07:40 Anion Gap 14 mmol/L 08/08/16 07:40 BUN 26 mg/dL (9-20) H 08/08/16 07:40 Creatinine 0.7 mg/dL (0.8-1.5) L 08/08/16 07:40 Estimated GFR > 60 ml/min 08/08/16 07:40 BUN/Creatinine Ratio 37.14 % 08/08/16 07:40 Glucose 233 mg/dL (75-100) H 08/08/16 07:40 POC Glucose 264 (70-105) H 08/08/16 05:13 Lactic Acid 1.00 mmol/L (0.7-2.0) 07/31/16 00:13 Calcium 7.6 mg/dL (8.4-10.2) L 08/08/16 07:40 Total Bilirubin 0.20 mg/dL (0.1-1.2) 08/08/16 07:40 AST 77 units/L (5-40) H 08/08/16 07:40 ALT 71 units/L (7-56) H 08/08/16 07:40 Alkaline Phosphatase 658 units/L (35-129) H 08/08/16 07:40 Ammonia 49.0 umol/L (25-60) 07/31/16 00:13 Total Creatine Kinase 865 units/L (55-170) H 07/31/16 08:39 CK-MB (CK-2) 5.9 ng/mL (0.0-4.0) H 07/31/16 08:39 CK-MB (CK-2) Rel Index 0.6 (0-4) 07/31/16 08:39 Troponin T 0.011 ng/mL (0.00-0.029) 07/31/16 08:39 Total Protein 5.0 g/dL (6.3-8.2) L 08/08/16 07:40 Albumin 1.6 g/dL (3.9-5) L 08/08/16 07:40 Albumin/Globulin Ratio 0.5 % 08/08/16 07:40 TSH 1.420 mlU/mL (0.270-4.200) 08/04/16 09:50 CSF Appearance Clear 08/04/16 11:54 CSF Color Colorless 08/04/16 11:54 CSF WBC 2 /mm3 (1-10) 08/04/16 11:54 CSF RBC 30 /mm3 (0-0) 08/04/16 11:54 CSF Seg Neutrophils 0 % (0-6) 08/04/16 11:54 CSF Lymphocytes % 66.7 % (40-80) 08/04/16 11:54 CSF Reactive Lymphs 0 % 08/04/16 11:54 CSF Monocytes % 33.3 % (15-45) 08/04/16 11:54 CSF Eosinophils % 0 % 08/04/16 11:54 CSF Basophils 0 % 08/04/16 11:54 CSF Pathologist Review C 08/04/16 11:54 CSF Glucose 90 mg/dL 08/04/16 11:54 CSF Total Protein 93 mg/dL 08/04/16 11:54 Salicylates < 0.3 mg/dL (2.8-20.0) L 07/31/16 00:02 Acetaminophen < 15.0 ug/mL (10.0-30.0) 07/31/16 00:02 Blood Type O POSITIVE 07/30/16 23:40 MARK Antibody Screen Negative 07/30/16 23:40
[2016-08-08 09:43] LABS: Anisocytosis 1+; Basophils % (Manual) 0 % (0.0-1.8); Blastocytes % (Manual) 0 %; Diff Status Complete; Hypochromasia Few; Macrocytosis Few; Platelet Estimate Consistent w Auto; Polychromasia Few; Target Cells Few; Tear Drop Cells Few
[2016-08-08] MEDS: ASPIRIN PO SCH (10:54)
[2016-08-08] MEDS: PEPCID PO SCH ×2 (10:54→21:39)
[2016-08-08] MEDS: LEVEMIR SUB-Q SCH (10:54)
--- NOTE | 2016-08-08 11:01 | Progress Note ---
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 1. Appreciate ID help. ABx therapy per them. 2. Continue CPAP therapy as tolerated. Current mental state is not optimal for extubation. Will discuss with family the possibility of trach and PEG. 3. Follow up LP results 4. Sugars are back to where they were before. Will increase levemir back to original dosing. 5. Will continue to follow along with you CCT 31 minutes. Subjective Date of service: 08/08/16 Principal diagnosis: acute respiratory failure Interval history: No acute events yesterday. Had LP yesterday. Abx therapy changed on yesterday by ID. Mental status is the same. family at bedside. Objective Vital Signs - 12hr 08/07/16 08/07/16 08/07/16 23:01 23:30 23:39 Temperature Pulse Rate 101 H 99 H 101 H Respiratory 19 20 21 Rate Blood Pressure 133/56 134/56 134/56 O2 Sat by Pulse 95 94 99 Oximetry 08/08/16 08/08/16 08/08/16 00:00 00:30 01:01 Temperature 100.6 F H Pulse Rate 106 H 103 H 103 H Respiratory 17 18 19 Rate Blood Pressure 130/58 139/55 135/52 O2 Sat by Pulse 93 91 93 Oximetry 08/08/16 08/08/16 08/08/16 01:31 02:00 02:30 Temperature Pulse Rate 104 H 101 H 101 H Respiratory 16 17 16 Rate Blood Pressure 138/57 123/63 O2 Sat by Pulse 93 97 92 Oximetry 08/08/16 08/08/16 08/08/16 03:00 03:30 03:48 Temperature 99.9 F H Pulse Rate 111 H 99 H Respiratory 15 20 Rate Blood Pressure 123/63 138/61 O2 Sat by Pulse 95 Oximetry 08/08/16 08/08/16 08/08/16 04:00 04:30 05:00 Temperature Pulse Rate 96 H 100 H 85 Respiratory 18 21 16 Rate Blood Pressure 134/60 122/51 136/58 O2 Sat by Pulse 98 98 99 Oximetry 08/08/16 08/08/16 08/08/16 05:30 06:00 06:05 Temperature Pulse Rate 89 81 86 Respiratory 19 16 Rate Blood Pressure 148/49 116/49 121/54 O2 Sat by Pulse 98 97 96 Oximetry 08/08/16 08/08/16 08/08/16 06:30 07:00 08:00 Temperature 99.1 F Pulse Rate 94 H 87 Respiratory 21 20 Rate Blood Pressure 136/57 136/57 O2 Sat by Pulse 92 97 Oximetry 08/08/16 08:51 Temperature Pulse Rate 94 H Respiratory 19 Rate Blood Pressure 132/56 O2 Sat by Pulse 99 Oximetry Constitutional: no acute distress, other (intubated, ) Eyes: other (pupils are equal, very slowly reactive) ENT: other (orally intubated) Neck: supple, no JVD Ascultation: Bilateral: clear, diminished breath sounds Gastrointestinal: normoactive bowel sounds, non-distended Integumentary: normal Extremities: no cyanosis, no edema Neurologic: other (no changes) CBC and BMP: 08/08/16 07:40 08/08/16 07:40 ABG, PT/INR, D-dimer: ABG POC ABG pH 7.460 (7.35-7.45) H 08/08/16 06:23 POC ABG pCO2 38.9 (35-45) 08/08/16 06:23 POC ABG pO2 74 (80-105) L 08/08/16 06:23 POC ABG HCO3 27.7 08/08/16 06:23 POC ABG Total CO2 29 08/08/16 06:23 POC ABG O2 Sat 95 08/08/16 06:23 PT/INR, D-dimer PT 17.2 Sec. (12.2-14.9) H 08/07/16 07:30 INR 1.41 (0.87-1.13) H 08/07/16 07:30 Abnormal lab findings: Abnormal Labs 07/31/16 07/31/16 07/31/16 08:39 10:07 12:07 WBC RBC Hgb Hct MCV MCH MCHC RDW Plt Count Lymph % (Auto) [place] % (Auto) Lymph # [place] # Seg Neutrophils % Seg Neuts % (Manual) Lymphocytes % (Manual) Monocytes % (Manual) Nucleated RBC % Seg Neutrophils # Man Lymphocytes # (Manual) PT INR APTT POC ABG pH POC ABG pCO2 POC ABG pO2 Sodium Carbon Dioxide BUN Creatinine Glucose POC Glucose 205 H 188 H Calcium AST ALT Alkaline Phosphatase Total Creatine Kinase 865 H CK-MB (CK-2) 5.9 H Total Protein Albumin 07/31/16 07/31/16 07/31/16 16:19 19:58 23:53 WBC RBC Hgb Hct MCV MCH MCHC RDW Plt Count Lymph % (Auto) [place] % (Auto) Lymph # [place] # Seg Neutrophils % Seg Neuts % (Manual) Lymphocytes % (Manual) Monocytes % (Manual) Nucleated RBC % Seg Neutrophils # Man Lymphocytes # (Manual) PT INR APTT POC ABG pH POC ABG pCO2 POC ABG pO2 Sodium Carbon Dioxide BUN Creatinine Glucose POC Glucose 195 H 147 H 160 H Calcium AST ALT Alkaline Phosphatase Total Creatine Kinase CK-MB (CK-2) Total Protein Albumin 08/01/16 08/01/16 08/01/16 04:18 04:42 07:45 WBC 14.8 H RBC Hgb 10.7 L Hct 34.9 L MCV 82 L MCH 25 L MCHC 31 L RDW 19.1 H Plt Count Lymph % (Auto) [place] % (Auto) Lymph # [place] # Seg Neutrophils % Seg Neuts % (Manual) 80.0 H Lymphocytes % (Manual) 12.0 L Monocytes % (Manual) Nucleated RBC % Seg Neutrophils # Man 11.8 H Lymphocytes # (Manual) PT INR APTT POC ABG pH POC ABG pCO2 33.4 L POC ABG pO2 66 L Sodium Carbon Dioxide BUN Creatinine Glucose POC Glucose 225 H Calcium AST ALT Alkaline Phosphatase Total Creatine Kinase CK-MB (CK-2) Total Protein Albumin 08/01/16 08/01/16 08/01/16 07:45 10:09 10:59 WBC RBC Hgb Hct MCV MCH MCHC RDW Plt Count Lymph % (Auto) [place] % (Auto) Lymph # [place] # Seg Neutrophils % Seg Neuts % (Manual) Lymphocytes % (Manual) Monocytes % (Manual) Nucleated RBC % Seg Neutrophils # Man Lymphocytes # (Manual) PT INR APTT POC ABG pH POC ABG pCO2 POC ABG pO2 Sodium Carbon Dioxide BUN 29 H Creatinine Glucose 233 H POC Glucose 266 H 318 H Calcium 7.6 L AST ALT Alkaline Phosphatase Total Creatine Kinase CK-MB (CK-2) Total Protein Albumin 08/01/16 08/01/16 08/01/16 14:24 17:56 21:21 WBC RBC Hgb Hct MCV MCH MCHC RDW Plt Count Lymph % (Auto) [place] % (Auto) Lymph # [place] # Seg Neutrophils % Seg Neuts % (Manual) Lymphocytes % (Manual) Monocytes % (Manual) Nucleated RBC % Seg Neutrophils # Man Lymphocytes # (Manual) PT INR APTT POC ABG pH POC ABG pCO2 POC ABG pO2 Sodium Carbon Dioxide BUN Creatinine Glucose POC Glucose 298 H 239 H 203 H Calcium AST ALT Alkaline Phosphatase Total Creatine Kinase CK-MB (CK-2) Total Protein Albumin 08/02/16 08/02/16 08/02/16 02:05 03:55 05:38 WBC RBC Hgb Hct MCV MCH MCHC RDW Plt Count Lymph % (Auto) [place] % (Auto) Lymph # [place] # Seg Neutrophils % Seg Neuts % (Manual) Lymphocytes % (Manual) Monocytes % (Manual) Nucleated RBC % Seg Neutrophils # Man Lymphocytes # (Manual) PT INR APTT POC ABG pH 7.460 H POC ABG pCO2 31.2 L POC ABG pO2 71 L Sodium Carbon Dioxide BUN Creatinine Glucose POC Glucose 248 H 253 H Calcium AST ALT Alkaline Phosphatase Total Creatine Kinase CK-MB (CK-2) Total Protein Albumin 08/02/16 08/02/16 08/02/16 09:11 09:44 09:44 WBC RBC 3.62 L Hgb 9.4 L Hct 29.1 L MCV 80 L MCH 26 L MCHC RDW 18.7 H Plt Count Lymph % (Auto) [place] % (Auto) 9.2 H Lymph # [place] # 1.0 H Seg Neutrophils % 72.0 H Seg Neuts % (Manual) Lymphocytes % (Manual) Monocytes % (Manual) Nucleated RBC % Seg Neutrophils # Man Lymphocytes # (Manual) PT INR APTT POC ABG pH POC ABG pCO2 POC ABG pO2 Sodium 135 L Carbon Dioxide 21 L BUN 42 H Creatinine Glucose 248 H POC Glucose 306 H Calcium 7.6 L AST ALT Alkaline Phosphatase Total Creatine Kinase CK-MB (CK-2) Total Protein Albumin 08/02/16 08/02/16 08/02/16 15:53 17:33 21:39 WBC RBC Hgb Hct MCV MCH MCHC RDW Plt Count Lymph % (Auto) [place] % (Auto) Lymph # [place] # Seg Neutrophils % Seg Neuts % (Manual) Lymphocytes % (Manual) Monocytes % (Manual) Nucleated RBC % Seg Neutrophils # Man Lymphocytes # (Manual) PT INR APTT POC ABG pH POC ABG pCO2 POC ABG pO2 Sodium Carbon Dioxide BUN Creatinine Glucose POC Glucose 205 H 250 H 282 H Calcium AST ALT Alkaline Phosphatase Total Creatine Kinase CK-MB (CK-2) Total Protein Albumin 08/03/16 08/03/16 08/03/16 02:28 05:47 07:05 WBC RBC 3.32 L Hgb 8.4 L Hct 26.5 L MCV 80 L MCH 25 L MCHC RDW 18.7 H Plt Count 112 L Lymph % (Auto) 12.5 L [place] % (Auto) 10.2 H Lymph # 1.0 L [place] # Seg Neutrophils % 75.9 H Seg Neuts % (Manual) Lymphocytes % (Manual) Monocytes % (Manual) Nucleated RBC % Seg Neutrophils # Man Lymphocytes # (Manual) PT INR APTT POC ABG pH POC ABG pCO2 POC ABG pO2 Sodium Carbon Dioxide BUN Creatinine Glucose POC Glucose 317 H 253 H Calcium AST ALT Alkaline Phosphatase Total Creatine Kinase CK-MB (CK-2) Total Protein Albumin 08/03/16 08/03/16 08/03/16 07:05 09:50 14:07 WBC RBC Hgb Hct MCV MCH MCHC RDW Plt Count Lymph % (Auto) [place] % (Auto) Lymph # [place] # Seg Neutrophils % Seg Neuts % (Manual) Lymphocytes % (Manual) Monocytes % (Manual) Nucleated RBC % Seg Neutrophils # Man Lymphocytes # (Manual) PT INR APTT POC ABG pH POC ABG pCO2 POC ABG pO2 Sodium 132 L Carbon Dioxide 20 L BUN 42 H Creatinine Glucose 243 H POC Glucose 332 H 345 H Calcium 6.8 L AST ALT Alkaline Phosphatase Total Creatine Kinase CK-MB (CK-2) Total Protein Albumin 08/03/16 08/03/16 08/04/16 17:38 21:36 02:18 WBC RBC Hgb Hct MCV MCH MCHC RDW Plt Count Lymph % (Auto) [place] % (Auto) Lymph # [place] # Seg Neutrophils % Seg Neuts % (Manual) Lymphocytes % (Manual) Monocytes % (Manual) Nucleated RBC % Seg Neutrophils # Man Lymphocytes # (Manual) PT INR APTT POC ABG pH POC ABG pCO2 POC ABG pO2 Sodium Carbon Dioxide BUN Creatinine Glucose POC Glucose 262 H 260 H 256 H Calcium AST ALT Alkaline Phosphatase Total Creatine Kinase CK-MB (CK-2) Total Protein Albumin 08/04/16 08/04/16 08/04/16 05:41 06:00 10:20 WBC RBC Hgb Hct MCV MCH MCHC RDW Plt Count Lymph % (Auto) [place] % (Auto) Lymph # [place] # Seg Neutrophils % Seg Neuts % (Manual) Lymphocytes % (Manual) Monocytes % (Manual) Nucleated RBC % Seg Neutrophils # Man Lymphocytes # (Manual) PT INR APTT POC ABG pH POC ABG pCO2 POC ABG pO2 Sodium Carbon Dioxide BUN 34 H Creatinine 0.7 L Glucose 237 H POC Glucose 265 H 266 H Calcium 7.9 L D AST ALT Alkaline Phosphatase Total Creatine Kinase CK-MB (CK-2) Total Protein Albumin 08/04/16 08/04/16 08/04/16 14:20 17:31 21:52 WBC RBC Hgb Hct MCV MCH MCHC RDW Plt Count Lymph % (Auto) [place] % (Auto) Lymph # [place] # Seg Neutrophils % Seg Neuts % (Manual) Lymphocytes % (Manual) Monocytes % (Manual) Nucleated RBC % Seg Neutrophils # Man Lymphocytes # (Manual) PT INR APTT POC ABG pH POC ABG pCO2 POC ABG pO2 Sodium Carbon Dioxide BUN Creatinine Glucose POC Glucose 302 H 337 H 340 H Calcium AST ALT Alkaline Phosphatase Total Creatine Kinase CK-MB (CK-2) Total Protein Albumin 08/05/16 08/05/16 08/05/16 01:43 05:00 05:00 WBC RBC Hgb 9.5 L Hct 30.1 L MCV 81 L MCH 26 L MCHC RDW 19.1 H Plt Count 112 L Lymph % (Auto) [place] % (Auto) Lymph # [place] # Seg Neutrophils % Seg Neuts % (Manual) Lymphocytes % (Manual) Monocytes % (Manual) Nucleated RBC % Seg Neutrophils # Man Lymphocytes # (Manual) PT INR APTT POC ABG pH POC ABG pCO2 POC ABG pO2 Sodium Carbon Dioxide BUN 27 H Creatinine 0.7 L Glucose 212 H POC Glucose 247 H Calcium 8.3 L AST 92 H ALT 81 H Alkaline Phosphatase 629 H Total Creatine Kinase CK-MB (CK-2) Total Protein 5.9 L Albumin 2.2 L 08/05/16 08/05/16 08/05/16 05:14 05:19 10:12 WBC RBC Hgb Hct MCV MCH MCHC RDW Plt Count Lymph % (Auto) [place] % (Auto) Lymph # [place] # Seg Neutrophils % Seg Neuts % (Manual) Lymphocytes % (Manual) Monocytes % (Manual) Nucleated RBC % Seg Neutrophils # Man Lymphocytes # (Manual) PT INR APTT POC ABG pH 7.469 H POC ABG pCO2 POC ABG pO2 109 H Sodium Carbon Dioxide BUN Creatinine Glucose POC Glucose 208 H 206 H Calcium AST ALT Alkaline Phosphatase Total Creatine Kinase CK-MB (CK-2) Total Protein Albumin 08/05/16 08/05/16 08/05/16 13:54 18:31 22:06 WBC RBC Hgb Hct MCV MCH MCHC RDW Plt Count Lymph % (Auto) [place] % (Auto) Lymph # [place] # Seg Neutrophils % Seg Neuts % (Manual) Lymphocytes % (Manual) Monocytes % (Manual) Nucleated RBC % Seg Neutrophils # Man Lymphocytes # (Manual) PT INR APTT POC ABG pH POC ABG pCO2 POC ABG pO2 Sodium Carbon Dioxide BUN Creatinine Glucose POC Glucose 226 H 229 H 245 H Calcium AST ALT Alkaline Phosphatase Total Creatine Kinase CK-MB (CK-2) Total Protein Albumin 08/06/16 08/06/16 08/06/16 02:03 05:31 05:42 WBC RBC Hgb Hct MCV MCH MCHC RDW Plt Count Lymph % (Auto) [place] % (Auto) Lymph # [place] # Seg Neutrophils % Seg Neuts % (Manual) Lymphocytes % (Manual) Monocytes % (Manual) Nucleated RBC % Seg Neutrophils # Man Lymphocytes # (Manual) PT INR APTT POC ABG pH POC ABG pCO2 POC ABG pO2 62 L Sodium Carbon Dioxide BUN Creatinine Glucose POC Glucose 237 H 205 H Calcium AST ALT Alkaline Phosphatase Total Creatine Kinase CK-MB (CK-2) Total Protein Albumin 08/06/16 08/06/16 08/06/16 09:36 11:30 14:23 WBC RBC Hgb Hct MCV MCH MCHC RDW Plt Count Lymph % (Auto) [place] % (Auto) Lymph # [place] # Seg Neutrophils % Seg Neuts % (Manual) Lymphocytes % (Manual) Monocytes % (Manual) Nucleated RBC % Seg Neutrophils # Man Lymphocytes # (Manual) PT 18.9 H INR 1.59 H APTT 39.7 H POC ABG pH POC ABG pCO2 POC ABG pO2 Sodium Carbon Dioxide BUN Creatinine Glucose POC Glucose 279 H 264 H Calcium AST ALT Alkaline Phosphatase Total Creatine Kinase CK-MB (CK-2) Total Protein Albumin 08/06/16 08/07/16 08/07/16 18:07 03:01 05:18 WBC RBC Hgb Hct MCV MCH MCHC RDW Plt Count Lymph % (Auto) [place] % (Auto) Lymph # [place] # Seg Neutrophils % Seg Neuts % (Manual) Lymphocytes % (Manual) Monocytes % (Manual) Nucleated RBC % Seg Neutrophils # Man Lymphocytes # (Manual) PT INR APTT POC ABG pH 7.459 H POC ABG pCO2 POC ABG pO2 Sodium Carbon Dioxide BUN Creatinine Glucose POC Glucose 176 H 172 H Calcium AST ALT Alkaline Phosphatase Total Creatine Kinase CK-MB (CK-2) Total Protein Albumin 08/07/16 08/07/16 08/07/16 05:32 07:30 07:30 WBC RBC 3.39 L Hgb 8.6 L Hct 27.2 L MCV 80 L MCH 25 L MCHC RDW 19.1 H Plt Count 136 L Lymph % (Auto) [place] % (Auto) Lymph # [place] # Seg Neutrophils % Seg Neuts % (Manual) 84.0 H Lymphocytes % (Manual) 4.0 L Monocytes % (Manual) 8.0 H Nucleated RBC % Seg Neutrophils # Man 8.2 H Lymphocytes # (Manual) 0.4 L PT 17.2 H INR 1.41 H APTT POC ABG pH POC ABG pCO2 POC ABG pO2 Sodium Carbon Dioxide BUN Creatinine Glucose POC Glucose 204 H Calcium AST ALT Alkaline Phosphatase Total Creatine Kinase CK-MB (CK-2) Total Protein Albumin 08/07/16 08/07/16 08/07/16 07:30 10:03 14:35 WBC RBC Hgb Hct MCV MCH MCHC RDW Plt Count Lymph % (Auto) [place] % (Auto) Lymph # [place] # Seg Neutrophils % Seg Neuts % (Manual) Lymphocytes % (Manual) Monocytes % (Manual) Nucleated RBC % Seg Neutrophils # Man Lymphocytes # (Manual) PT INR APTT POC ABG pH POC ABG pCO2 POC ABG pO2 Sodium Carbon Dioxide BUN 27 H Creatinine 0.7 L Glucose 201 H POC Glucose 233 H 255 H Calcium 7.9 L AST 73 H ALT 74 H Alkaline Phosphatase 595 H Total Creatine Kinase CK-MB (CK-2) Total Protein 5.1 L Albumin 1.8 L 08/07/16 08/07/16 08/08/16 16:09 22:01 01:27 WBC RBC Hgb Hct MCV MCH MCHC RDW Plt Count Lymph % (Auto) [place] % (Auto) Lymph # [place] # Seg Neutrophils % Seg Neuts % (Manual) Lymphocytes % (Manual) Monocytes % (Manual) Nucleated RBC % Seg Neutrophils # Man Lymphocytes # (Manual) PT INR APTT POC ABG pH POC ABG pCO2 POC ABG pO2 Sodium Carbon Dioxide BUN Creatinine Glucose POC Glucose 259 H 255 H 252 H Calcium AST ALT Alkaline Phosphatase Total Creatine Kinase CK-MB (CK-2) Total Protein Albumin 08/08/16 08/08/16 08/08/16 05:13 06:23 07:40 WBC RBC 3.36 L Hgb 8.5 L Hct 27.1 L MCV 81 L MCH 25 L MCHC 31 L RDW 18.8 H Plt Count 129 L Lymph % (Auto) [place] % (Auto) Lymph # [place] # Seg Neutrophils % Seg Neuts % (Manual) Lymphocytes % (Manual) Monocytes % (Manual) Nucleated RBC % 2.0 H Seg Neutrophils # Man Lymphocytes # (Manual) PT INR APTT POC ABG pH 7.460 H POC ABG pCO2 POC ABG pO2 74 L Sodium Carbon Dioxide BUN Creatinine Glucose POC Glucose 264 H Calcium AST ALT Alkaline Phosphatase Total Creatine Kinase CK-MB (CK-2) Total Protein Albumin 08/08/16 08/08/16 07:40 10:01 WBC RBC Hgb Hct MCV MCH MCHC RDW Plt Count Lymph % (Auto) [place] % (Auto) Lymph # [place] # Seg Neutrophils % Seg Neuts % (Manual) Lymphocytes % (Manual) Monocytes % (Manual) Nucleated RBC % Seg Neutrophils # Man Lymphocytes # (Manual) PT INR APTT POC ABG pH POC ABG pCO2 POC ABG pO2 Sodium Carbon Dioxide BUN 26 H Creatinine 0.7 L Glucose 233 H POC Glucose 271 H Calcium 7.6 L AST 77 H ALT 71 H Alkaline Phosphatase 658 H Total Creatine Kinase CK-MB (CK-2) Total Protein 5.0 L Albumin 1.6 L
[2016-08-08] MEDS: NACL 0.45% 1000 ML 1,000 ML IV SCH (11:59)
[2016-08-08] MEDS ORDERED: LEVEMIR SUB-Q ONE (13:00)
[2016-08-08] MEDS ORDERED: LASIX ONE (21:30)
[2016-08-09] MEDS: MERREM 1,000 MG in NACL 0.9% 100 ML IV SCH ×2 (00:33→06:04)
[2016-08-09 05:27] LABS: Hematocrit 26.7 % (35.5-45.6); Hemoglobin 8.3 gm/dl (11.8-15.2); Mean Corpuscular HGB Conc 31 % (32-34); Mean Corpuscular Volume 80 fl (84-94); Platelet Count 141 K/mm3 (140-440); Red Blood Count 3.34 M/mm3 (3.65-5.03); Red Cell Distribution Width 18.5 % (13.2-15.2); White Blood Count 8.2 K/mm3 (4.5-11.0)
[2016-08-09 05:29] LABS: Mean Corpuscular Hemoglobin 25 pg (28-32)
[2016-08-09 05:49] LABS: Anion Gap 14 mmol/L; Blood Urea Nitrogen 25 mg/dL (9-20); Calcium 7.6 mg/dL (8.4-10.2); Carbon Dioxide 27 mmol/L (22-30); Chloride 100.4 mmol/L (98-107); Glucose 230 mg/dL (75-100); Potassium 4.2 mmol/L (3.6-5.0); Sodium 137 mmol/L (137-145)
[2016-08-09] MEDS: ZOVIRAX IV SCH (06:05)
[2016-08-09] MEDS: NACL 0.9% IV SCH (06:05)
[2016-08-09 06:27] LABS: ISTAT Base Excess 6; ISTAT HCO3 29.8; ISTAT PCO2 38.8 (35-45); ISTAT PH 7.493 (7.35-7.45); ISTAT PO2 83 (80-105); ISTAT SO2 97; ISTAT TCO2 31
--- NOTE | 2016-08-09 08:24 | Progress Note ---
Assessment and Plan Assessment and plan: Patient is 76 year-old man with a history of hypertension, diabetes, hyperlipidemia, BPH, was brought to the emergency room because son found him on the floor unresponsive. Patient was intubated in the emergency room. MRI of brain showed b/l acute CVA. Tracheal aspirate growing Pseudomonas Aeruginosa and Escherichia Coli. Failing weaning trial from vent, may need trach. 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 On empiric Acyclovir -CSF Cryptococcal Antigen negative - CT head was unremarkable on admission - EEG showed no seizure Acut b/l CVA - likely present since admission - Continue Aspirin - neuro following Elevated LFTs - Obtained ultrasound of the abdomen - US showed cholelithiasis without cholecystitis - monitor LFT as he is on statin Hypertension - cont monitor, provide Bp meds with TF Diabetes mellitus type 2 Hyperlipidemia - cont statin BPH - monitor urine output Sepsis with PNA - pt has elevated white count on admission and tachycardia - tracheal aspirate grew Pseudomonas, resistant to zosyn -Now on Meropenem and acyclovir -ID Physician following Prognosis guarded History Interval history: Still intubated, Still unable to wean Fever Hospitalist Physical - Physical exam Narrative exam: Gen Appearance: intubated, on vent HEENT: normocephalic, atraumatic Neck: no JVD Lungs: clear to auscultation bilaterally, no crackles or wheezes Heart: S1 and S2 regular, no murmurs or gallop Abdomen: Soft, non-tender, non-distended, normal bowel sounds Extremity:No edema, clubbing or cyanosis Neuro : Intubated, sedated - Constitutional Vitals: Temp Pulse Resp BP Pulse Ox 100.7 F H 96 H 19 125/48 97 08/09/16 08:00 08/09/16 07:00 08/09/16 07:00 08/09/16 07:00 08/09/16 07:00 General appearance: Present: well-nourished, other (intubated, FiO2 30%) Results - Labs CBC & Chem 7: 08/09/16 05:00 08/09/16 05:00 Labs: Laboratory Last Values WBC 8.2 K/mm3 (4.5-11.0) 08/09/16 05:00 RBC 3.34 M/mm3 (3.65-5.03) L 08/09/16 05:00 Hgb 8.3 gm/dl (11.8-15.2) L 08/09/16 05:00 Hct 26.7 % (35.5-45.6) L 08/09/16 05:00 MCV 80 fl (84-94) L 08/09/16 05:00 MCH 25 pg (28-32) L 08/09/16 05:00 MCHC 31 % (32-34) L 08/09/16 05:00 RDW 18.5 % (13.2-15.2) H 08/09/16 05:00 Plt Count 141 K/mm3 (140-440) 08/09/16 05:00 Lymph % (Auto) Wet Cleaner Machine 08/08/16 07:40 Sharp % (Auto) Wet Cleaner Machine 08/08/16 07:40 Eos % (Auto) Wet Cleaner Machine 08/08/16 07:40 Baso % (Auto) Wet Cleaner Machine 08/08/16 07:40 Lymph # Wet Cleaner Machine 08/08/16 07:40 Sharp # Wet Cleaner Machine 08/08/16 07:40 Eos # Wet Cleaner Machine 08/08/16 07:40 Baso # Wet Cleaner Machine 08/08/16 07:40 Add Manual Diff Complete 08/08/16 07:40 Total Counted 100 08/08/16 07:40 Seg Neutrophils % Wet Cleaner Machine 08/08/16 07:40 Seg Neuts % (Manual) 68.0 % (40.0-70.0) 08/08/16 07:40 Band Neutrophils % 2.0 % 08/08/16 07:40 Lymphocytes % (Manual) 25.0 % (13.4-35.0) 08/08/16 07:40 Reactive Lymphs % (Man) 0 % 08/08/16 07:40 Monocytes % (Manual) 3.0 % (0.0-7.3) 08/08/16 07:40 Eosinophils % (Manual) 2.0 % (0.0-4.3) 08/08/16 07:40 Basophils % (Manual) 0 % (0.0-1.8) 08/08/16 07:40 Metamyelocytes % 0 % 08/08/16 07:40 Myelocytes % 0 % 08/08/16 07:40 Promyelocytes % 0 % 08/08/16 07:40 Blast Cells % 0 % 08/08/16 07:40 Nucleated RBC % 2.0 % (0.0-0.9) H 08/08/16 07:40 Seg Neutrophils # Wet Cleaner Machine 08/08/16 07:40 Seg Neutrophils # Man 5.9 K/mm3 (1.8-7.7) 08/08/16 07:40 Band Neutrophils # 0.2 K/mm3 08/08/16 07:40 Lymphocytes # (Manual) 2.2 K/mm3 (1.2-5.4) 08/08/16 07:40 Abs React Lymphs (Man) 0.0 K/mm3 08/08/16 07:40 Monocytes # (Manual) 0.3 K/mm3 (0.0-0.8) 08/08/16 07:40 Eosinophils # (Manual) 0.2 K/mm3 (0.0-0.4) 08/08/16 07:40 Basophils # (Manual) 0.0 K/mm3 (0.0-0.1) 08/08/16 07:40 Metamyelocytes # 0.0 K/mm3 08/08/16 07:40 Myelocytes # 0.0 K/mm3 08/08/16 07:40 Promyelocytes # 0.0 K/mm3 08/08/16 07:40 Blast Cells # 0.0 K/mm3 08/08/16 07:40 WBC Morphology Not Reportable 08/08/16 07:40 Hypersegmented Neuts Not Reportable 08/08/16 07:40 Hyposegmented Neuts Not Reportable 08/08/16 07:40 Hypogranular Neuts Not Reportable 08/08/16 07:40 Smudge Cells Not Reportable 08/08/16 07:40 Toxic Granulation Not Reportable 08/08/16 07:40 Toxic Vacuolation Not Reportable 08/08/16 07:40 Dohle Bodies Not Reportable 08/08/16 07:40 Pelger-Huet Anomaly Not Reportable 08/08/16 07:40 Leta Rods Not Reportable 08/08/16 07:40 Platelet Estimate Consistent w auto 08/08/16 07:40 Clumped Platelets Not Reportable 08/08/16 07:40 Plt Clumps, EDTA Not Reportable 08/08/16 07:40 Large Platelets Not Reportable 08/08/16 07:40 Giant Platelets Not Reportable 08/08/16 07:40 Platelet Satelliting Not Reportable 08/08/16 07:40 Plt Morphology Comment Not Reportable 08/08/16 07:40 RBC Morphology Not Reportable 08/08/16 07:40 Dimorphic RBCs Not Reportable 08/08/16 07:40 Polychromasia Few 08/08/16 07:40 Hypochromasia Few 08/08/16 07:40 Poikilocytosis Not Reportable 08/08/16 07:40 Anisocytosis 1+ 08/08/16 07:40 Microcytosis Not Reportable 08/08/16 07:40 Macrocytosis Few 08/08/16 07:40 Spherocytes Not Reportable 08/08/16 07:40 Pappenheimer Bodies Not Reportable 08/08/16 07:40 Sickle Cells Not Reportable 08/08/16 07:40 Target Cells Few 08/08/16 07:40 Tear Drop Cells Few 08/08/16 07:40 Ovalocytes Not Reportable 08/08/16 07:40 Helmet Cells Not Reportable 08/08/16 07:40 Das-Apex Bodies Not Reportable 08/08/16 07:40 Robertson Rings Not Reportable 08/08/16 07:40 Marianela Cells Not Reportable 08/08/16 07:40 Bite Cells Not Reportable 08/08/16 07:40 Crenated Cell Not Reportable 08/08/16 07:40 Elliptocytes Not Reportable 08/08/16 07:40 Acanthocytes (Spur) Not Reportable 08/08/16 07:40 Rouleaux Not Reportable 08/08/16 07:40 Hemoglobin C Crystals Not Reportable 08/08/16 07:40 Schistocytes Not Reportable 08/08/16 07:40 Malaria parasites Not Reportable 08/08/16 07:40 Reece Bodies Not Reportable 08/08/16 07:40 Hem Pathologist Commnt No 08/08/16 07:40 PT 17.2 Sec. (12.2-14.9) H 08/07/16 07:30 INR 1.41 (0.87-1.13) H 08/07/16 07:30 APTT 36.5 Sec. (24.2-36.6) 08/07/16 07:30 POC ABG pH 7.493 (7.35-7.45) H 08/09/16 06:00 POC ABG pCO2 38.8 (35-45) 08/09/16 06:00 POC ABG pO2 83 (80-105) 08/09/16 06:00 POC ABG HCO3 29.8 08/09/16 06:00 POC ABG Total CO2 31 08/09/16 06:00 POC ABG O2 Sat 97 08/09/16 06:00 POC ABG Base Excess 6 08/09/16 06:00 VBG pH 7.447 (7.320-7.420) H 07/31/16 00:13 FiO2 30 % 08/09/16 06:00 Sodium 137 mmol/L (137-145) 08/09/16 05:00 Potassium 4.2 mmol/L (3.6-5.0) 08/09/16 05:00 Chloride 100.4 mmol/L (98-107) 08/09/16 05:00 Carbon Dioxide 27 mmol/L (22-30) 08/09/16 05:00 Anion Gap 14 mmol/L 08/09/16 05:00 BUN 25 mg/dL (9-20) H 08/09/16 05:00 Creatinine 0.5 mg/dL (0.8-1.5) L 08/09/16 05:00 Estimated GFR > 60 ml/min 08/09/16 05:00 BUN/Creatinine Ratio 50.00 % 08/09/16 05:00 Glucose 230 mg/dL (75-100) H 08/09/16 05:00 POC Glucose 260 (70-105) H 08/09/16 03:32 Lactic Acid 1.00 mmol/L (0.7-2.0) 07/31/16 00:13 Calcium 7.6 mg/dL (8.4-10.2) L 08/09/16 05:00 Total Bilirubin 0.20 mg/dL (0.1-1.2) 08/08/16 07:40 AST 77 units/L (5-40) H 08/08/16 07:40 ALT 71 units/L (7-56) H 08/08/16 07:40 Alkaline Phosphatase 658 units/L (35-129) H 08/08/16 07:40 Ammonia 49.0 umol/L (25-60) 07/31/16 00:13 Total Creatine Kinase 865 units/L (55-170) H 07/31/16 08:39 CK-MB (CK-2) 5.9 ng/mL (0.0-4.0) H 07/31/16 08:39 CK-MB (CK-2) Rel Index 0.6 (0-4) 07/31/16 08:39 Troponin T 0.011 ng/mL (0.00-0.029) 07/31/16 08:39 Total Protein 5.0 g/dL (6.3-8.2) L 08/08/16 07:40 Albumin 1.6 g/dL (3.9-5) L 08/08/16 07:40 Albumin/Globulin Ratio 0.5 % 08/08/16 07:40 TSH 1.420 mlU/mL (0.270-4.200) 08/04/16 09:50 CSF Appearance Clear 08/04/16 11:54 CSF Color Colorless 08/04/16 11:54 CSF WBC 2 /mm3 (1-10) 08/04/16 11:54 CSF RBC 30 /mm3 (0-0) 08/04/16 11:54 CSF Seg Neutrophils 0 % (0-6) 08/04/16 11:54 CSF Lymphocytes % 66.7 % (40-80) 08/04/16 11:54 CSF Reactive Lymphs 0 % 08/04/16 11:54 CSF Monocytes % 33.3 % (15-45) 08/04/16 11:54 CSF Eosinophils % 0 % 08/04/16 11:54 CSF Basophils 0 % 08/04/16 11:54 CSF Pathologist Review C 08/04/16 11:54 CSF Glucose 90 mg/dL 08/04/16 11:54 CSF Total Protein 93 mg/dL 08/04/16 11:54 Salicylates < 0.3 mg/dL (2.8-20.0) L 07/31/16 00:02 Acetaminophen < 15.0 ug/mL (10.0-30.0) 07/31/16 00:02 Blood Type O POSITIVE 07/30/16 23:40 MARK Antibody Screen Negative 07/30/16 23:40
--- NOTE | 2016-08-09 08:42 | Progress Note ---
Assessment and Plan - Patient Problems (1) Altered mental status Current Visit: Yes Status: Acute Qualifiers: Altered mental status type: stupor Coma depth: C Coma timing: C Qualified Code(s): R40.1 - Stupor Plan to address problem: 1. No pleocytosis or abnormality of CSF analysis to date. 2. Will discontinue Acyclovir. (2) Acute respiratory failure Current Visit: Yes Status: Acute Qualifiers: Respiratory failure complication: hypoxia Qualified Code(s): J96.01 - Acute respiratory failure with hypoxia Plan to address problem: 1. Will change to inhaled Tobramycin to complete a 5-7-day course for presumptive tracheobronchitis. Chest radiograph remains clear, though patient has intermittent fever and polymicrobial growth on bronchial culture. 2. Will discontinue Meropenem. 3. Continue to follow clinically. Subjective Date of service: 08/09/16 Principal diagnosis: acute respiratory failure Interval history: Febrile to 100.7 deg F. Remains intubated in ICU. Objective - Constitutional Vitals: Vital Signs Temp Pulse Resp BP Pulse Ox 100.7 F H 96 H 19 125/48 97 08/09/16 08:00 08/09/16 07:00 08/09/16 07:00 08/09/16 07:00 08/09/16 07:00 Temperature -Last 24 Hours Temperature 100.7 F Temperature 100.7 F Temperature 98.7 F Temperature 99.2 F Temperature 99.1 F Temperature 99.5 F General appearance: Present: obese, other (intubated, FiO2 30%) - Respiratory Respiratory: bilateral: CTA, negative: rales, rhonchi - Cardiovascular Rhythm: regular (borderline tachycardia) Heart Sounds: Present: S1 & S2 Extremity abnormal: edema (trace, symmetric edema) - Gastrointestinal General gastrointestinal: Present: soft, non-distended, normal bowel sounds Rectal Exam: other (rectal tube with watery, brown stool) - Genitourinary Male genitourinary: normal (Carter with yellow urine) - Integumentary Integumentary: no jaundice, no rash - Neurologic Neurologic: other (minimally responsive to deep tactile stimulus) - Additional findings Additional findings: PICC left arm without inflammation - Labs CBC & Chem 7: 08/09/16 05:00 08/09/16 05:00 Labs: Abnormal lab results 07/0408/08/16 08/08/16 Range/Units 07:40 07:40 10:01 RBC 3.36 L (3.65-5.03) M/mm3 Hgb 8.5 L (11.8-15.2) gm/dl Hct 27.1 L (35.5-45.6) % MCV 81 L (84-94) fl MCH 25 L (28-32) pg MCHC 31 L (32-34) % RDW 18.8 H (13.2-15.2) % Plt Count 129 L (140-440) K/mm3 Nucleated RBC % 2.0 H (0.0-0.9) % POC ABG pH (7.35-7.45) BUN 26 H (9-20) mg/dL Creatinine 0.7 L (0.8-1.5) mg/dL Glucose 233 H (75-100) mg/dL POC Glucose 271 H (70-105) Calcium 7.6 L (8.4-10.2) mg/dL AST 77 H (5-40) units/L ALT 71 H (7-56) units/L Alkaline Phosphatase 658 H (35-129) units/L Total Protein 5.0 L (6.3-8.2) g/dL Albumin 1.6 L (3.9-5) g/dL 08/08/16 08/08/16 08/08/16 Range/Units 15:00 17:28 21:32 RBC (3.65-5.03) M/mm3 Hgb (11.8-15.2) gm/dl Hct (35.5-45.6) % MCV (84-94) fl MCH (28-32) pg MCHC (32-34) % RDW (13.2-15.2) % Plt Count (140-440) K/mm3 Nucleated RBC % (0.0-0.9) % POC ABG pH (7.35-7.45) BUN (9-20) mg/dL Creatinine (0.8-1.5) mg/dL Glucose (75-100) mg/dL POC Glucose 275 H 275 H 252 H (70-105) Calcium (8.4-10.2) mg/dL AST (5-40) units/L ALT (7-56) units/L Alkaline Phosphatase (35-129) units/L Total Protein (6.3-8.2) g/dL Albumin (3.9-5) g/dL 08/08/16 08/09/16 08/09/16 Range/Units 23:53 03:32 05:00 RBC 3.34 L (3.65-5.03) M/mm3 Hgb 8.3 L (11.8-15.2) gm/dl Hct 26.7 L (35.5-45.6) % MCV 80 L (84-94) fl MCH 25 L (28-32) pg MCHC 31 L (32-34) % RDW 18.5 H (13.2-15.2) % Plt Count (140-440) K/mm3 Nucleated RBC % (0.0-0.9) % POC ABG pH (7.35-7.45) BUN (9-20) mg/dL Creatinine (0.8-1.5) mg/dL Glucose (75-100) mg/dL POC Glucose 246 H 260 H (70-105) Calcium (8.4-10.2) mg/dL AST (5-40) units/L ALT (7-56) units/L Alkaline Phosphatase (35-129) units/L Total Protein (6.3-8.2) g/dL Albumin (3.9-5) g/dL 08/09/16 08/09/16 Range/Units 05:00 06:00 RBC (3.65-5.03) M/mm3 Hgb (11.8-15.2) gm/dl Hct (35.5-45.6) % MCV (84-94) fl MCH (28-32) pg MCHC (32-34) % RDW (13.2-15.2) % Plt Count (140-440) K/mm3 Nucleated RBC % (0.0-0.9) % POC ABG pH 7.493 H (7.35-7.45) BUN 25 H (9-20) mg/dL Creatinine 0.5 L (0.8-1.5) mg/dL Glucose 230 H (75-100) mg/dL POC Glucose (70-105) Calcium 7.6 L (8.4-10.2) mg/dL AST (5-40) units/L ALT (7-56) units/L Alkaline Phosphatase (35-129) units/L Total Protein (6.3-8.2) g/dL Albumin (3.9-5) g/dL Microbiology 08/04/16 11:54 Cerebral Spinal Fluid CSF Culture - Preliminary 08/04/16 11:54 Cerebral Spinal Fluid Cryptococcal Antigen - Final 08/03/16 Unknown Tracheal Aspirate Sputum Culture - Final Pseudomonas Aeruginosa Escherichia Coli 08/01/16 13:18 Peripheral/Venous Blood Culture - Final NO GROWTH AFTER 5 DAYS 08/01/16 10:57 Peripheral/Venous Blood Culture - Final NO GROWTH AFTER 5 DAYS 07/30/16 23:34 Tracheal Aspirate Sputum Culture - Final - Imaging and cardiology Chest x-ray: report reviewed (mild atelectasis, no consolidation, large effusion or other changes)
[2016-08-09] MEDS: PEPCID PO SCH ×2 (09:51→21:39)
[2016-08-09] MEDS: ASPIRIN PO SCH (09:51)
[2016-08-09] MEDS: TYLENOL FEEDTUBE PRN (09:51)
[2016-08-09] MEDS ORDERED: LEVEMIR SUB-Q SCH (10:00)
[2016-08-09] MEDS: TOBRAMYCIN INHALATION (NICU) (40 MG/ML) IH SCH ×3 (10:50→21:19)
--- NOTE | 2016-08-09 11:00 | Progress Note ---
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 1. Appreciate ID help. All cultures negative so abx therapy and antiviral therapy stopped. 2. Continue CPAP therapy as tolerated. Current mental state is not optimal for extubation. Will discuss with family the possibility of trach and PEG. 3. Discussed trach and peg on IT rounds. Await to speak with son. 4. Increase Levemir 5. Will continue to follow along with you CCT 31 minutes. Subjective Date of service: 08/09/16 Principal diagnosis: acute respiratory failure Interval history: No acute events overnight. All cultures negative. Abx therapy stopped by ID. No family at bedside. Objective Vital Signs - 12hr 08/08/16 08/08/16 08/09/16 23:00 23:30 00:00 Temperature 98.7 F Pulse Rate 97 H 95 H 97 H Respiratory 20 22 20 Rate Blood Pressure 124/61 124/49 134/56 O2 Sat by Pulse 100 98 99 Oximetry 08/09/16 08/09/16 08/09/16 00:06 00:30 01:00 Temperature Pulse Rate 96 H 103 H 108 H Respiratory 23 13 Rate Blood Pressure 134/56 129/52 135/60 O2 Sat by Pulse 99 98 99 Oximetry 08/09/16 08/09/16 08/09/16 01:30 02:00 02:30 Temperature Pulse Rate 94 H 106 H 92 H Respiratory 20 21 19 Rate Blood Pressure 135/46 127/55 119/54 O2 Sat by Pulse 97 97 97 Oximetry 08/09/16 08/09/16 08/09/16 03:00 03:30 04:00 Temperature 100.7 F H Pulse Rate 98 H 95 H 91 H Respiratory 20 19 19 Rate Blood Pressure 125/48 126/52 127/50 O2 Sat by Pulse 99 99 99 Oximetry 08/09/16 08/09/16 08/09/16 04:30 05:00 05:30 Temperature Pulse Rate 97 H 96 H 94 H Respiratory 20 22 18 Rate Blood Pressure 117/48 125/55 118/56 O2 Sat by Pulse 98 99 99 Oximetry 08/09/16 08/09/16 08/09/16 06:00 06:30 07:00 Temperature Pulse Rate 95 H 96 H 96 H Respiratory 19 16 19 Rate Blood Pressure 125/55 119/47 125/48 O2 Sat by Pulse 98 98 97 Oximetry 08/09/16 08:00 Temperature 100.7 F H Pulse Rate Respiratory Rate Blood Pressure O2 Sat by Pulse Oximetry Constitutional: no acute distress, other (intubated, ) Eyes: other (pupils are equal, very slowly reactive) ENT: other (orally intubated) Neck: supple, no JVD Ascultation: Bilateral: clear, diminished breath sounds Gastrointestinal: normoactive bowel sounds, non-distended Integumentary: normal Extremities: no cyanosis, no edema Neurologic: other (no changes) CBC and BMP: 08/09/16 05:00 08/09/16 05:00 ABG, PT/INR, D-dimer: ABG POC ABG pH 7.493 (7.35-7.45) H 08/09/16 06:00 POC ABG pCO2 38.8 (35-45) 08/09/16 06:00 POC ABG pO2 83 (80-105) 08/09/16 06:00 POC ABG HCO3 29.8 08/09/16 06:00 POC ABG Total CO2 31 08/09/16 06:00 POC ABG O2 Sat 97 08/09/16 06:00 PT/INR, D-dimer PT 17.2 Sec. (12.2-14.9) H 08/07/16 07:30 INR 1.41 (0.87-1.13) H 08/07/16 07:30 Abnormal lab findings: Abnormal Labs 07/31/16 07/31/16 07/31/16 08:39 10:07 12:07 WBC RBC Hgb Hct MCV MCH MCHC RDW Plt Count Lymph % (Auto) [place] % (Auto) Lymph # [place] # Seg Neutrophils % Seg Neuts % (Manual) Lymphocytes % (Manual) Monocytes % (Manual) Nucleated RBC % Seg Neutrophils # Man Lymphocytes # (Manual) PT INR APTT POC ABG pH POC ABG pCO2 POC ABG pO2 Sodium Carbon Dioxide BUN Creatinine Glucose POC Glucose 205 H 188 H Calcium AST ALT Alkaline Phosphatase Total Creatine Kinase 865 H CK-MB (CK-2) 5.9 H Total Protein Albumin 07/31/16 07/31/16 07/31/16 16:19 19:58 23:53 WBC RBC Hgb Hct MCV MCH MCHC RDW Plt Count Lymph % (Auto) [place] % (Auto) Lymph # [place] # Seg Neutrophils % Seg Neuts % (Manual) Lymphocytes % (Manual) Monocytes % (Manual) Nucleated RBC % Seg Neutrophils # Man Lymphocytes # (Manual) PT INR APTT POC ABG pH POC ABG pCO2 POC ABG pO2 Sodium Carbon Dioxide BUN Creatinine Glucose POC Glucose 195 H 147 H 160 H Calcium AST ALT Alkaline Phosphatase Total Creatine Kinase CK-MB (CK-2) Total Protein Albumin 08/01/16 08/01/16 08/01/16 04:18 04:42 07:45 WBC 14.8 H RBC Hgb 10.7 L Hct 34.9 L MCV 82 L MCH 25 L MCHC 31 L RDW 19.1 H Plt Count Lymph % (Auto) [place] % (Auto) Lymph # [place] # Seg Neutrophils % Seg Neuts % (Manual) 80.0 H Lymphocytes % (Manual) 12.0 L Monocytes % (Manual) Nucleated RBC % Seg Neutrophils # Man 11.8 H Lymphocytes # (Manual) PT INR APTT POC ABG pH POC ABG pCO2 33.4 L POC ABG pO2 66 L Sodium Carbon Dioxide BUN Creatinine Glucose POC Glucose 225 H Calcium AST ALT Alkaline Phosphatase Total Creatine Kinase CK-MB (CK-2) Total Protein Albumin 08/01/16 08/01/16 08/01/16 07:45 10:09 10:59 WBC RBC Hgb Hct MCV MCH MCHC RDW Plt Count Lymph % (Auto) [place] % (Auto) Lymph # [place] # Seg Neutrophils % Seg Neuts % (Manual) Lymphocytes % (Manual) Monocytes % (Manual) Nucleated RBC % Seg Neutrophils # Man Lymphocytes # (Manual) PT INR APTT POC ABG pH POC ABG pCO2 POC ABG pO2 Sodium Carbon Dioxide BUN 29 H Creatinine Glucose 233 H POC Glucose 266 H 318 H Calcium 7.6 L AST ALT Alkaline Phosphatase Total Creatine Kinase CK-MB (CK-2) Total Protein Albumin 08/01/16 08/01/16 08/01/16 14:24 17:56 21:21 WBC RBC Hgb Hct MCV MCH MCHC RDW Plt Count Lymph % (Auto) [place] % (Auto) Lymph # [place] # Seg Neutrophils % Seg Neuts % (Manual) Lymphocytes % (Manual) Monocytes % (Manual) Nucleated RBC % Seg Neutrophils # Man Lymphocytes # (Manual) PT INR APTT POC ABG pH POC ABG pCO2 POC ABG pO2 Sodium Carbon Dioxide BUN Creatinine Glucose POC Glucose 298 H 239 H 203 H Calcium AST ALT Alkaline Phosphatase Total Creatine Kinase CK-MB (CK-2) Total Protein Albumin 08/02/16 08/02/16 08/02/16 02:05 03:55 05:38 WBC RBC Hgb Hct MCV MCH MCHC RDW Plt Count Lymph % (Auto) [place] % (Auto) Lymph # [place] # Seg Neutrophils % Seg Neuts % (Manual) Lymphocytes % (Manual) Monocytes % (Manual) Nucleated RBC % Seg Neutrophils # Man Lymphocytes # (Manual) PT INR APTT POC ABG pH 7.460 H POC ABG pCO2 31.2 L POC ABG pO2 71 L Sodium Carbon Dioxide BUN Creatinine Glucose POC Glucose 248 H 253 H Calcium AST ALT Alkaline Phosphatase Total Creatine Kinase CK-MB (CK-2) Total Protein Albumin 08/02/16 08/02/16 08/02/16 09:11 09:44 09:44 WBC RBC 3.62 L Hgb 9.4 L Hct 29.1 L MCV 80 L MCH 26 L MCHC RDW 18.7 H Plt Count Lymph % (Auto) [place] % (Auto) 9.2 H Lymph # [place] # 1.0 H Seg Neutrophils % 72.0 H Seg Neuts % (Manual) Lymphocytes % (Manual) Monocytes % (Manual) Nucleated RBC % Seg Neutrophils # Man Lymphocytes # (Manual) PT INR APTT POC ABG pH POC ABG pCO2 POC ABG pO2 Sodium 135 L Carbon Dioxide 21 L BUN 42 H Creatinine Glucose 248 H POC Glucose 306 H Calcium 7.6 L AST ALT Alkaline Phosphatase Total Creatine Kinase CK-MB (CK-2) Total Protein Albumin 08/02/16 08/02/16 08/02/16 15:53 17:33 21:39 WBC RBC Hgb Hct MCV MCH MCHC RDW Plt Count Lymph % (Auto) [place] % (Auto) Lymph # [place] # Seg Neutrophils % Seg Neuts % (Manual) Lymphocytes % (Manual) Monocytes % (Manual) Nucleated RBC % Seg Neutrophils # Man Lymphocytes # (Manual) PT INR APTT POC ABG pH POC ABG pCO2 POC ABG pO2 Sodium Carbon Dioxide BUN Creatinine Glucose POC Glucose 205 H 250 H 282 H Calcium AST ALT Alkaline Phosphatase Total Creatine Kinase CK-MB (CK-2) Total Protein Albumin 08/03/16 08/03/16 08/03/16 02:28 05:47 07:05 WBC RBC 3.32 L Hgb 8.4 L Hct 26.5 L MCV 80 L MCH 25 L MCHC RDW 18.7 H Plt Count 112 L Lymph % (Auto) 12.5 L [place] % (Auto) 10.2 H Lymph # 1.0 L [place] # Seg Neutrophils % 75.9 H Seg Neuts % (Manual) Lymphocytes % (Manual) Monocytes % (Manual) Nucleated RBC % Seg Neutrophils # Man Lymphocytes # (Manual) PT INR APTT POC ABG pH POC ABG pCO2 POC ABG pO2 Sodium Carbon Dioxide BUN Creatinine Glucose POC Glucose 317 H 253 H Calcium AST ALT Alkaline Phosphatase Total Creatine Kinase CK-MB (CK-2) Total Protein Albumin 08/03/16 08/03/16 08/03/16 07:05 09:50 14:07 WBC RBC Hgb Hct MCV MCH MCHC RDW Plt Count Lymph % (Auto) [place] % (Auto) Lymph # [place] # Seg Neutrophils % Seg Neuts % (Manual) Lymphocytes % (Manual) Monocytes % (Manual) Nucleated RBC % Seg Neutrophils # Man Lymphocytes # (Manual) PT INR APTT POC ABG pH POC ABG pCO2 POC ABG pO2 Sodium 132 L Carbon Dioxide 20 L BUN 42 H Creatinine Glucose 243 H POC Glucose 332 H 345 H Calcium 6.8 L AST ALT Alkaline Phosphatase Total Creatine Kinase CK-MB (CK-2) Total Protein Albumin 08/03/16 08/03/16 08/04/16 17:38 21:36 02:18 WBC RBC Hgb Hct MCV MCH MCHC RDW Plt Count Lymph % (Auto) [place] % (Auto) Lymph # [place] # Seg Neutrophils % Seg Neuts % (Manual) Lymphocytes % (Manual) Monocytes % (Manual) Nucleated RBC % Seg Neutrophils # Man Lymphocytes # (Manual) PT INR APTT POC ABG pH POC ABG pCO2 POC ABG pO2 Sodium Carbon Dioxide BUN Creatinine Glucose POC Glucose 262 H 260 H 256 H Calcium AST ALT Alkaline Phosphatase Total Creatine Kinase CK-MB (CK-2) Total Protein Albumin 08/04/16 08/04/16 08/04/16 05:41 06:00 10:20 WBC RBC Hgb Hct MCV MCH MCHC RDW Plt Count Lymph % (Auto) [place] % (Auto) Lymph # [place] # Seg Neutrophils % Seg Neuts % (Manual) Lymphocytes % (Manual) Monocytes % (Manual) Nucleated RBC % Seg Neutrophils # Man Lymphocytes # (Manual) PT INR APTT POC ABG pH POC ABG pCO2 POC ABG pO2 Sodium Carbon Dioxide BUN 34 H Creatinine 0.7 L Glucose 237 H POC Glucose 265 H 266 H Calcium 7.9 L D AST ALT Alkaline Phosphatase Total Creatine Kinase CK-MB (CK-2) Total Protein Albumin 08/04/16 08/04/16 08/04/16 14:20 17:31 21:52 WBC RBC Hgb Hct MCV MCH MCHC RDW Plt Count Lymph % (Auto) [place] % (Auto) Lymph # [place] # Seg Neutrophils % Seg Neuts % (Manual) Lymphocytes % (Manual) Monocytes % (Manual) Nucleated RBC % Seg Neutrophils # Man Lymphocytes # (Manual) PT INR APTT POC ABG pH POC ABG pCO2 POC ABG pO2 Sodium Carbon Dioxide BUN Creatinine Glucose POC Glucose 302 H 337 H 340 H Calcium AST ALT Alkaline Phosphatase Total Creatine Kinase CK-MB (CK-2) Total Protein Albumin 08/05/16 08/05/16 08/05/16 01:43 05:00 05:00 WBC RBC Hgb 9.5 L Hct 30.1 L MCV 81 L MCH 26 L MCHC RDW 19.1 H Plt Count 112 L Lymph % (Auto) [place] % (Auto) Lymph # [place] # Seg Neutrophils % Seg Neuts % (Manual) Lymphocytes % (Manual) Monocytes % (Manual) Nucleated RBC % Seg Neutrophils # Man Lymphocytes # (Manual) PT INR APTT POC ABG pH POC ABG pCO2 POC ABG pO2 Sodium Carbon Dioxide BUN 27 H Creatinine 0.7 L Glucose 212 H POC Glucose 247 H Calcium 8.3 L AST 92 H ALT 81 H Alkaline Phosphatase 629 H Total Creatine Kinase CK-MB (CK-2) Total Protein 5.9 L Albumin 2.2 L 08/05/16 08/05/16 08/05/16 05:14 05:19 10:12 WBC RBC Hgb Hct MCV MCH MCHC RDW Plt Count Lymph % (Auto) [place] % (Auto) Lymph # [place] # Seg Neutrophils % Seg Neuts % (Manual) Lymphocytes % (Manual) Monocytes % (Manual) Nucleated RBC % Seg Neutrophils # Man Lymphocytes # (Manual) PT INR APTT POC ABG pH 7.469 H POC ABG pCO2 POC ABG pO2 109 H Sodium Carbon Dioxide BUN Creatinine Glucose POC Glucose 208 H 206 H Calcium AST ALT Alkaline Phosphatase Total Creatine Kinase CK-MB (CK-2) Total Protein Albumin 08/05/16 08/05/16 08/05/16 13:54 18:31 22:06 WBC RBC Hgb Hct MCV MCH MCHC RDW Plt Count Lymph % (Auto) [place] % (Auto) Lymph # [place] # Seg Neutrophils % Seg Neuts % (Manual) Lymphocytes % (Manual) Monocytes % (Manual) Nucleated RBC % Seg Neutrophils # Man Lymphocytes # (Manual) PT INR APTT POC ABG pH POC ABG pCO2 POC ABG pO2 Sodium Carbon Dioxide BUN Creatinine Glucose POC Glucose 226 H 229 H 245 H Calcium AST ALT Alkaline Phosphatase Total Creatine Kinase CK-MB (CK-2) Total Protein Albumin 08/06/16 08/06/16 08/06/16 02:03 05:31 05:42 WBC RBC Hgb Hct MCV MCH MCHC RDW Plt Count Lymph % (Auto) [place] % (Auto) Lymph # [place] # Seg Neutrophils % Seg Neuts % (Manual) Lymphocytes % (Manual) Monocytes % (Manual) Nucleated RBC % Seg Neutrophils # Man Lymphocytes # (Manual) PT INR APTT POC ABG pH POC ABG pCO2 POC ABG pO2 62 L Sodium Carbon Dioxide BUN Creatinine Glucose POC Glucose 237 H 205 H Calcium AST ALT Alkaline Phosphatase Total Creatine Kinase CK-MB (CK-2) Total Protein Albumin 08/06/16 08/06/16 08/06/16 09:36 11:30 14:23 WBC RBC Hgb Hct MCV MCH MCHC RDW Plt Count Lymph % (Auto) [place] % (Auto) Lymph # [place] # Seg Neutrophils % Seg Neuts % (Manual) Lymphocytes % (Manual) Monocytes % (Manual) Nucleated RBC % Seg Neutrophils # Man Lymphocytes # (Manual) PT 18.9 H INR 1.59 H APTT 39.7 H POC ABG pH POC ABG pCO2 POC ABG pO2 Sodium Carbon Dioxide BUN Creatinine Glucose POC Glucose 279 H 264 H Calcium AST ALT Alkaline Phosphatase Total Creatine Kinase CK-MB (CK-2) Total Protein Albumin 08/06/16 08/07/16 08/07/16 18:07 03:01 05:18 WBC RBC Hgb Hct MCV MCH MCHC RDW Plt Count Lymph % (Auto) [place] % (Auto) Lymph # [place] # Seg Neutrophils % Seg Neuts % (Manual) Lymphocytes % (Manual) Monocytes % (Manual) Nucleated RBC % Seg Neutrophils # Man Lymphocytes # (Manual) PT INR APTT POC ABG pH 7.459 H POC ABG pCO2 POC ABG pO2 Sodium Carbon Dioxide BUN Creatinine Glucose POC Glucose 176 H 172 H Calcium AST ALT Alkaline Phosphatase Total Creatine Kinase CK-MB (CK-2) Total Protein Albumin 08/07/16 08/07/16 08/07/16 05:32 07:30 07:30 WBC RBC 3.39 L Hgb 8.6 L Hct 27.2 L MCV 80 L MCH 25 L MCHC RDW 19.1 H Plt Count 136 L Lymph % (Auto) [place] % (Auto) Lymph # [place] # Seg Neutrophils % Seg Neuts % (Manual) 84.0 H Lymphocytes % (Manual) 4.0 L Monocytes % (Manual) 8.0 H Nucleated RBC % Seg Neutrophils # Man 8.2 H Lymphocytes # (Manual) 0.4 L PT 17.2 H INR 1.41 H APTT POC ABG pH POC ABG pCO2 POC ABG pO2 Sodium Carbon Dioxide BUN Creatinine Glucose POC Glucose 204 H Calcium AST ALT Alkaline Phosphatase Total Creatine Kinase CK-MB (CK-2) Total Protein Albumin 08/07/16 08/07/16 08/07/16 07:30 10:03 14:35 WBC RBC Hgb Hct MCV MCH MCHC RDW Plt Count Lymph % (Auto) [place] % (Auto) Lymph # [place] # Seg Neutrophils % Seg Neuts % (Manual) Lymphocytes % (Manual) Monocytes % (Manual) Nucleated RBC % Seg Neutrophils # Man Lymphocytes # (Manual) PT INR APTT POC ABG pH POC ABG pCO2 POC ABG pO2 Sodium Carbon Dioxide BUN 27 H Creatinine 0.7 L Glucose 201 H POC Glucose 233 H 255 H Calcium 7.9 L AST 73 H ALT 74 H Alkaline Phosphatase 595 H Total Creatine Kinase CK-MB (CK-2) Total Protein 5.1 L Albumin 1.8 L 08/07/16 08/07/16 08/08/16 16:09 22:01 01:27 WBC RBC Hgb Hct MCV MCH MCHC RDW Plt Count Lymph % (Auto) [place] % (Auto) Lymph # [place] # Seg Neutrophils % Seg Neuts % (Manual) Lymphocytes % (Manual) Monocytes % (Manual) Nucleated RBC % Seg Neutrophils # Man Lymphocytes # (Manual) PT INR APTT POC ABG pH POC ABG pCO2 POC ABG pO2 Sodium Carbon Dioxide BUN Creatinine Glucose POC Glucose 259 H 255 H 252 H Calcium AST ALT Alkaline Phosphatase Total Creatine Kinase CK-MB (CK-2) Total Protein Albumin 08/08/16 08/08/16 08/08/16 05:13 06:23 07:40 WBC RBC 3.36 L Hgb 8.5 L Hct 27.1 L MCV 81 L MCH 25 L MCHC 31 L RDW 18.8 H Plt Count 129 L Lymph % (Auto) [place] % (Auto) Lymph # [place] # Seg Neutrophils % Seg Neuts % (Manual) Lymphocytes % (Manual) Monocytes % (Manual) Nucleated RBC % 2.0 H Seg Neutrophils # Man Lymphocytes # (Manual) PT INR APTT POC ABG pH 7.460 H POC ABG pCO2 POC ABG pO2 74 L Sodium Carbon Dioxide BUN Creatinine Glucose POC Glucose 264 H Calcium AST ALT Alkaline Phosphatase Total Creatine Kinase CK-MB (CK-2) Total Protein Albumin 08/08/16 08/08/16 08/08/16 07:40 10:01 15:00 WBC RBC Hgb Hct MCV MCH MCHC RDW Plt Count Lymph % (Auto) [place] % (Auto) Lymph # [place] # Seg Neutrophils % Seg Neuts % (Manual) Lymphocytes % (Manual) Monocytes % (Manual) Nucleated RBC % Seg Neutrophils # Man Lymphocytes # (Manual) PT INR APTT POC ABG pH POC ABG pCO2 POC ABG pO2 Sodium Carbon Dioxide BUN 26 H Creatinine 0.7 L Glucose 233 H POC Glucose 271 H 275 H Calcium 7.6 L AST 77 H ALT 71 H Alkaline Phosphatase 658 H Total Creatine Kinase CK-MB (CK-2) Total Protein 5.0 L Albumin 1.6 L 08/08/16 08/08/16 08/08/16 17:28 21:32 23:53 WBC RBC Hgb Hct MCV MCH MCHC RDW Plt Count Lymph % (Auto) [place] % (Auto) Lymph # [place] # Seg Neutrophils % Seg Neuts % (Manual) Lymphocytes % (Manual) Monocytes % (Manual) Nucleated RBC % Seg Neutrophils # Man Lymphocytes # (Manual) PT INR APTT POC ABG pH POC ABG pCO2 POC ABG pO2 Sodium Carbon Dioxide BUN Creatinine Glucose POC Glucose 275 H 252 H 246 H Calcium AST ALT Alkaline Phosphatase Total Creatine Kinase CK-MB (CK-2) Total Protein Albumin 08/09/16 08/09/16 08/09/16 03:32 05:00 05:00 WBC RBC 3.34 L Hgb 8.3 L Hct 26.7 L MCV 80 L MCH 25 L MCHC 31 L RDW 18.5 H Plt Count Lymph % (Auto) [place] % (Auto) Lymph # [place] # Seg Neutrophils % Seg Neuts % (Manual) Lymphocytes % (Manual) Monocytes % (Manual) Nucleated RBC % Seg Neutrophils # Man Lymphocytes # (Manual) PT INR APTT POC ABG pH POC ABG pCO2 POC ABG pO2 Sodium Carbon Dioxide BUN 25 H Creatinine 0.5 L Glucose 230 H POC Glucose 260 H Calcium 7.6 L AST ALT Alkaline Phosphatase Total Creatine Kinase CK-MB (CK-2) Total Protein Albumin 08/09/16 08/09/16 06:00 10:07 WBC RBC Hgb Hct MCV MCH MCHC RDW Plt Count Lymph % (Auto) [place] % (Auto) Lymph # [place] # Seg Neutrophils % Seg Neuts % (Manual) Lymphocytes % (Manual) Monocytes % (Manual) Nucleated RBC % Seg Neutrophils # Man Lymphocytes # (Manual) PT INR APTT POC ABG pH 7.493 H POC ABG pCO2 POC ABG pO2 Sodium Carbon Dioxide BUN Creatinine Glucose POC Glucose 216 H Calcium AST ALT Alkaline Phosphatase Total Creatine Kinase CK-MB (CK-2) Total Protein Albumin
[2016-08-09] MEDS ORDERED: LEVEMIR SUB-Q ONE (13:00)
[2016-08-10] MEDS: TYLENOL FEEDTUBE PRN (02:27)
[2016-08-10 05:29] LABS: Hematocrit 27.5 % (35.5-45.6); Hemoglobin 8.6 gm/dl (11.8-15.2); Mean Corpuscular HGB Conc 32 % (32-34); Mean Corpuscular Volume 80 fl (84-94); Platelet Count 168 K/mm3 (140-440); Red Blood Count 3.42 M/mm3 (3.65-5.03); Red Cell Distribution Width 19.1 % (13.2-15.2); White Blood Count 8.9 K/mm3 (4.5-11.0)
[2016-08-10 05:32] LABS: Mean Corpuscular Hemoglobin 25 pg (28-32)
[2016-08-10 05:51] LABS: Anion Gap 11 mmol/L; Blood Urea Nitrogen 27 mg/dL (9-20); Calcium 7.8 mg/dL (8.4-10.2); Carbon Dioxide 30 mmol/L (22-30); Chloride 101.1 mmol/L (98-107); Glucose 211 mg/dL (75-100); Potassium 4.1 mmol/L (3.6-5.0); Sodium 138 mmol/L (137-145)
--- NOTE | 2016-08-10 08:24 | Progress Note ---
Assessment and Plan - Patient Problems (1) Altered mental status Current Visit: Yes Status: Acute Qualifiers: Altered mental status type: stupor Coma depth: C Coma timing: C Qualified Code(s): R40.1 - Stupor Plan to address problem: No infectious etiology determined for altered mentation to date. (2) Acute respiratory failure Current Visit: Yes Status: Acute Qualifiers: Respiratory failure complication: hypoxia Qualified Code(s): J96.01 - Acute respiratory failure with hypoxia Plan to address problem: Presumed tracheobronchitis. Continue inhaled Tobramycin. Subjective Date of service: 08/10/16 Principal diagnosis: acute respiratory failure Interval history: Intermittent, low-grade fevers. Otherwise no new clinical events. Objective - Constitutional Vitals: Vital Signs Temp Pulse Resp BP Pulse Ox 97.8 F 83 18 120/46 99 08/10/16 08:00 08/10/16 07:31 08/10/16 07:31 08/10/16 07:31 08/10/16 07:31 Temperature -Last 24 Hours Temperature 97.8 F Temperature 100.0 F Temperature 100.6 F Temperature 99.7 F Temperature 99 F Temperature 99.7 F General appearance: Present: no acute distress, other (remains intubated, eyes open, FO2 30%) - Respiratory Respiratory: bilateral: CTA, negative: rales, rhonchi - Cardiovascular Rhythm: regular Heart Sounds: Present: S1 & S2 Extremities: No edema - Gastrointestinal General gastrointestinal: Present: soft, distended (mild distention), hypoactive bowel sounds Rectal Exam: other (rectal tube with watery brown stool) - Genitourinary Male genitourinary: normal ([place] with yellow urine) - Integumentary Integumentary: clear, no jaundice, no rash - Additional findings Additional findings: PICC left arm without surrounding inflammation - Labs CBC & Chem 7: 08/10/16 Unknown 08/10/16 Unknown Labs: Abnormal lab results 08/09/16 08/09/16 08/09/16 Range/Units 10:07 14:07 16:55 RBC (3.65-5.03) M/mm3 Hgb (11.8-15.2) gm/dl Hct (35.5-45.6) % MCV (84-94) fl MCH (28-32) pg RDW (13.2-15.2) % BUN (9-20) mg/dL Creatinine (0.8-1.5) mg/dL Glucose (75-100) mg/dL POC Glucose 216 H 220 H 242 H (70-105) Calcium (8.4-10.2) mg/dL 08/09/16 08/10/16 08/10/16 Range/Units 21:07 02:09 05:31 RBC (3.65-5.03) M/mm3 Hgb (11.8-15.2) gm/dl Hct (35.5-45.6) % MCV (84-94) fl MCH (28-32) pg RDW (13.2-15.2) % BUN (9-20) mg/dL Creatinine (0.8-1.5) mg/dL Glucose (75-100) mg/dL POC Glucose 235 H 228 H 201 H (70-105) Calcium (8.4-10.2) mg/dL 08/10/16 08/10/16 Range/Units Unknown Unknown RBC 3.42 L (3.65-5.03) M/mm3 Hgb 8.6 L (11.8-15.2) gm/dl Hct 27.5 L (35.5-45.6) % MCV 80 L (84-94) fl MCH 25 L (28-32) pg RDW 19.1 H (13.2-15.2) % BUN 27 H (9-20) mg/dL Creatinine 0.6 L (0.8-1.5) mg/dL Glucose 211 H (75-100) mg/dL POC Glucose (70-105) Calcium 7.8 L (8.4-10.2) mg/dL Microbiology 08/04/16 11:54 Cerebral Spinal Fluid CSF Culture - Preliminary 08/04/16 11:54 Cerebral Spinal Fluid Cryptococcal Antigen - Final 08/03/16 Unknown Tracheal Aspirate Sputum Culture - Final Pseudomonas Aeruginosa Escherichia Coli 08/01/16 13:18 Peripheral/Venous Blood Culture - Final NO GROWTH AFTER 5 DAYS 08/01/16 10:57 Peripheral/Venous Blood Culture - Final NO GROWTH AFTER 5 DAYS 07/30/16 23:34 Tracheal Aspirate Sputum Culture - Final CSF [facility] SEROLOGY - negative CSF [place] [place] DNA QUANT - negative CSF [facility] - non-reactive
--- NOTE | 2016-08-10 08:44 | Progress Note ---
Assessment and Plan Assessment and plan: Patient is 76 year-old man with a history of hypertension, diabetes, hyperlipidemia, BPH, was brought to the emergency room because son found him on the floor unresponsive. Patient was intubated in the emergency room. MRI of brain showed b/l acute CVA. Tracheal aspirate growing Pseudomonas Aeruginosa and Escherichia Coli. Failing weaning trial from vent, may need trach. 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 On empiric Acyclovir -CSF Cryptococcal Antigen negative - CT head was unremarkable on admission - EEG showed no seizure Acut ischemic stroke, bilateral - likely present since admission - Continue Aspirin - neuro following Elevated LFTs - Obtained ultrasound of the abdomen - US showed cholelithiasis without cholecystitis - monitor LFT as he is on statin Hypertension - continue to monitor Diabetes mellitus type 2 Hyperlipidemia - cont statin BPH - monitor urine output Sepsis with PNA -pt has elevated white count on admission and tachycardia -tracheal aspirate grew Pseudomonas, resistant to zosyn -Now started on Tobramycin. Discontinued Meropenem and Acyclovir. I discussed with ID Physician Prognosis guarded History Interval history: Still intubated. Still unable to wean Fever Hospitalist Physical - Physical exam Narrative exam: Gen Appearance: intubated, on vent HEENT: normocephalic, atraumatic Neck: no JVD Lungs: clear to auscultation bilaterally, no crackles or wheezes Heart: S1 and S2 regular, no murmurs or gallop Abdomen: Soft, non-tender, non-distended, normal bowel sounds Extremity:No edema, clubbing or cyanosis Neuro : Intubated, sedated - Constitutional Vitals: Temp Pulse Resp BP Pulse Ox 97.8 F 82 17 118/54 96 08/10/16 08:00 08/10/16 08:00 08/10/16 08:00 08/10/16 08:00 08/10/16 08:00 General appearance: Present: well-nourished, other (intubated, FiO2 30%) Results - Labs CBC & Chem 7: 08/10/16 Unknown 08/10/16 Unknown Labs: Laboratory Last Values WBC 8.9 K/mm3 (4.5-11.0) 08/10/16 Unknown RBC 3.42 M/mm3 (3.65-5.03) L 08/10/16 Unknown Hgb 8.6 gm/dl (11.8-15.2) L 08/10/16 Unknown Hct 27.5 % (35.5-45.6) L 08/10/16 Unknown MCV 80 fl (84-94) L 08/10/16 Unknown MCH 25 pg (28-32) L 08/10/16 Unknown MCHC 32 % (32-34) 08/10/16 Unknown RDW 19.1 % (13.2-15.2) H 08/10/16 Unknown Plt Count 168 K/mm3 (140-440) 08/10/16 Unknown Lymph % (Auto) Tech [employer]er Tester 08/08/16 07:40 Crisp % (Auto) Tech [employer]er Tester 08/08/16 07:40 Eos % (Auto) Tech [employer]er Tester 08/08/16 07:40 Baso % (Auto) Tech [employer]er Tester 08/08/16 07:40 Lymph # Tech [employer] Tester 08/08/16 07:40 Crisp # Tech [employer]er Tester 08/08/16 07:40 Eos # Tech [employer]er Tester 08/08/16 07:40 Baso # Tech [employer]er Tester 08/08/16 07:40 Add Manual Diff Complete 08/08/16 07:40 Total Counted 100 08/08/16 07:40 Seg Neutrophils % Tech [employer]er Tester 08/08/16 07:40 Seg Neuts % (Manual) 68.0 % (40.0-70.0) 08/08/16 07:40 Band Neutrophils % 2.0 % 08/08/16 07:40 Lymphocytes % (Manual) 25.0 % (13.4-35.0) 08/08/16 07:40 Reactive Lymphs % (Man) 0 % 08/08/16 07:40 Monocytes % (Manual) 3.0 % (0.0-7.3) 08/08/16 07:40 Eosinophils % (Manual) 2.0 % (0.0-4.3) 08/08/16 07:40 Basophils % (Manual) 0 % (0.0-1.8) 08/08/16 07:40 Metamyelocytes % 0 % 08/08/16 07:40 Myelocytes % 0 % 08/08/16 07:40 Promyelocytes % 0 % 08/08/16 07:40 Blast Cells % 0 % 08/08/16 07:40 Nucleated RBC % 2.0 % (0.0-0.9) H 08/08/16 07:40 Seg Neutrophils # Tech [employer] Tester 08/08/16 07:40 Seg Neutrophils # Man 5.9 K/mm3 (1.8-7.7) 08/08/16 07:40 Band Neutrophils # 0.2 K/mm3 08/08/16 07:40 Lymphocytes # (Manual) 2.2 K/mm3 (1.2-5.4) 08/08/16 07:40 Abs React Lymphs (Man) 0.0 K/mm3 08/08/16 07:40 Monocytes # (Manual) 0.3 K/mm3 (0.0-0.8) 08/08/16 07:40 Eosinophils # (Manual) 0.2 K/mm3 (0.0-0.4) 08/08/16 07:40 Basophils # (Manual) 0.0 K/mm3 (0.0-0.1) 08/08/16 07:40 Metamyelocytes # 0.0 K/mm3 08/08/16 07:40 Myelocytes # 0.0 K/mm3 08/08/16 07:40 Promyelocytes # 0.0 K/mm3 08/08/16 07:40 Blast Cells # 0.0 K/mm3 08/08/16 07:40 WBC Morphology Not Reportable 08/08/16 07:40 Hypersegmented Neuts Not Reportable 08/08/16 07:40 Hyposegmented Neuts Not Reportable 08/08/16 07:40 Hypogranular Neuts Not Reportable 08/08/16 07:40 Smudge Cells Not Reportable 08/08/16 07:40 Toxic Granulation Not Reportable 08/08/16 07:40 Toxic Vacuolation Not Reportable 08/08/16 07:40 Dohle Bodies Not Reportable 08/08/16 07:40 Pelger-Huet Anomaly Not Reportable 08/08/16 07:40 Leta Rods Not Reportable 08/08/16 07:40 Platelet Estimate Consistent w auto 08/08/16 07:40 Clumped Platelets Not Reportable 08/08/16 07:40 Plt Clumps, EDTA Not Reportable 08/08/16 07:40 Large Platelets Not Reportable 08/08/16 07:40 Giant Platelets Not Reportable 08/08/16 07:40 Platelet Satelliting Not Reportable 08/08/16 07:40 Plt Morphology Comment Not Reportable 08/08/16 07:40 RBC Morphology Not Reportable 08/08/16 07:40 Dimorphic RBCs Not Reportable 08/08/16 07:40 Polychromasia Few 08/08/16 07:40 Hypochromasia Few 08/08/16 07:40 Poikilocytosis Not Reportable 08/08/16 07:40 Anisocytosis 1+ 08/08/16 07:40 Microcytosis Not Reportable 08/08/16 07:40 Macrocytosis Few 08/08/16 07:40 Spherocytes Not Reportable 08/08/16 07:40 Pappenheimer Bodies Not Reportable 08/08/16 07:40 Sickle Cells Not Reportable 08/08/16 07:40 Target Cells Few 08/08/16 07:40 Tear Drop Cells Few 08/08/16 07:40 Ovalocytes Not Reportable 08/08/16 07:40 Helmet Cells Not Reportable 08/08/16 07:40 Das-[employer] [place] Bodies Not Reportable 08/08/16 07:40 Darby Rings Not Reportable 08/08/16 07:40 [place] Cells Not Reportable 08/08/16 07:40 Bite Cells Not Reportable 08/08/16 07:40 Crenated Cell Not Reportable 08/08/16 07:40 Elliptocytes Not Reportable 08/08/16 07:40 Acanthocytes (Spur) Not Reportable 08/08/16 07:40 Rouleaux Not Reportable 08/08/16 07:40 Hemoglobin C Crystals Not Reportable 08/08/16 07:40 Schistocytes Not Reportable 08/08/16 07:40 Malaria parasites Not Reportable 08/08/16 07:40 Reece Bodies Not Reportable 08/08/16 07:40 Hem Pathologist Commnt No 08/08/16 07:40 PT 17.2 Sec. (12.2-14.9) H 08/07/16 07:30 INR 1.41 (0.87-1.13) H 08/07/16 07:30 APTT 36.5 Sec. (24.2-36.6) 08/07/16 07:30 POC ABG pH 7.493 (7.35-7.45) H 08/09/16 06:00 POC ABG pCO2 38.8 (35-45) 08/09/16 06:00 POC ABG pO2 83 (80-105) 08/09/16 06:00 POC ABG HCO3 29.8 08/09/16 06:00 POC ABG Total CO2 31 08/09/16 06:00 POC ABG O2 Sat 97 08/09/16 06:00 POC ABG Base Excess 6 08/09/16 06:00 VBG pH 7.447 (7.320-7.420) H 07/31/16 00:13 FiO2 30 % 08/09/16 06:00 Sodium 138 mmol/L (137-145) 08/10/16 Unknown Potassium 4.1 mmol/L (3.6-5.0) 08/10/16 Unknown Chloride 101.1 mmol/L (98-107) 08/10/16 Unknown Carbon Dioxide 30 mmol/L (22-30) 08/10/16 Unknown Anion Gap 11 mmol/L 08/10/16 Unknown BUN 27 mg/dL (9-20) H 08/10/16 Unknown Creatinine 0.6 mg/dL (0.8-1.5) L 08/10/16 Unknown Estimated GFR > 60 ml/min 08/10/16 Unknown BUN/Creatinine Ratio 45.00 % 08/10/16 Unknown Glucose 211 mg/dL (75-100) H 08/10/16 Unknown POC Glucose 201 (70-105) H 08/10/16 05:31 Lactic Acid 1.00 mmol/L (0.7-2.0) 07/31/16 00:13 Calcium 7.8 mg/dL (8.4-10.2) L 08/10/16 Unknown Total Bilirubin 0.20 mg/dL (0.1-1.2) 08/08/16 07:40 AST 77 units/L (5-40) H 08/08/16 07:40 ALT 71 units/L (7-56) H 08/08/16 07:40 Alkaline Phosphatase 658 units/L (35-129) H 08/08/16 07:40 Ammonia 49.0 umol/L (25-60) 07/31/16 00:13 Total Creatine Kinase 865 units/L (55-170) H 07/31/16 08:39 CK-MB (CK-2) 5.9 ng/mL (0.0-4.0) H 07/31/16 08:39 CK-MB (CK-2) Rel Index 0.6 (0-4) 07/31/16 08:39 Troponin T 0.011 ng/mL (0.00-0.029) 07/31/16 08:39 Total Protein 5.0 g/dL (6.3-8.2) L 08/08/16 07:40 Albumin 1.6 g/dL (3.9-5) L 08/08/16 07:40 Albumin/Globulin Ratio 0.5 % 08/08/16 07:40 TSH 1.420 mlU/mL (0.270-4.200) 08/04/16 09:50 CSF Appearance Clear 08/04/16 11:54 CSF Color Colorless 08/04/16 11:54 CSF WBC 2 /mm3 (1-10) 08/04/16 11:54 CSF RBC 30 /mm3 (0-0) 08/04/16 11:54 CSF Seg Neutrophils 0 % (0-6) 08/04/16 11:54 CSF Lymphocytes % 66.7 % (40-80) 08/04/16 11:54 CSF Reactive Lymphs 0 % 08/04/16 11:54 CSF Monocytes % 33.3 % (15-45) 08/04/16 11:54 CSF Eosinophils % 0 % 08/04/16 11:54 CSF Basophils 0 % 08/04/16 11:54 CSF Pathologist Review C 08/04/16 11:54 CSF Glucose 90 mg/dL 08/04/16 11:54 CSF Total Protein 93 mg/dL 08/04/16 11:54 CSF VDRL Nonreactive (Nonreactive) 08/04/16 11:54 Salicylates < 0.3 mg/dL (2.8-20.0) L 07/31/16 00:02 Acetaminophen < 15.0 ug/mL (10.0-30.0) 07/31/16 00:02 Miscellaneous Test Flexitest 1 08/04/16 11:54 Blood Type O POSITIVE 07/30/16 23:40 MARK Antibody Screen Negative 07/30/16 23:40
[2016-08-10] MEDS: TOBRAMYCIN INHALATION (NICU) (40 MG/ML) IH SCH ×2 (09:05→23:30)
[2016-08-10] MEDS: LEVEMIR SUB-Q SCH (09:12)
[2016-08-10] MEDS: ASPIRIN PO SCH (09:13)
[2016-08-10] MEDS: PEPCID PO SCH ×2 (09:13→22:56)
[2016-08-10] MEDS ORDERED: CATHFLO IV ONE (10:30)
--- NOTE | 2016-08-10 10:36 | Progress Note ---
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 1. Appreciate ID help. All cultures negative so abx therapy and antiviral therapy stopped. 2. Continue CPAP therapy as tolerated. Current mental state is not optimal for extubation. Will discuss with family the possibility of trach and PEG. 3. Discussed trach and peg on IT rounds. Await to speak with son. 4. Increase Levemir. BS are stable, still in the 200's. 5. Will continue to follow along with you CCT 31 minutes. Subjective Date of service: 08/10/16 Principal diagnosis: acute respiratory failure Interval history: No acute events. No family currently at bedside. Tolerated PSV all day yesterday, however this am, tired out after about 2 hours. placed back on rate. Objective Vital Signs - 12hr 08/09/16 08/09/16 08/09/16 23:01 23:31 23:46 Temperature Pulse Rate 83 85 85 Respiratory 15 16 17 Rate Blood Pressure 130/57 130/57 130/57 O2 Sat by Pulse 97 99 99 Oximetry 08/09/16 08/10/16 08/10/16 23:59 00:00 00:31 Temperature 100.6 F H Pulse Rate 91 H 88 89 Respiratory 15 13 Rate Blood Pressure 130/57 126/57 130/57 O2 Sat by Pulse 99 97 98 Oximetry 08/10/16 08/10/16 08/10/16 01:01 01:31 02:00 Temperature Pulse Rate 96 H 92 H 91 H Respiratory 9 L 10 L 18 Rate Blood Pressure 129/61 129/61 131/55 O2 Sat by Pulse 96 99 95 Oximetry 08/10/16 08/10/16 08/10/16 02:31 03:01 03:31 Temperature Pulse Rate 91 H 90 95 H Respiratory 15 18 16 Rate Blood Pressure 129/61 116/56 116/56 O2 Sat by Pulse 99 96 99 Oximetry 08/10/16 08/10/16 08/10/16 03:49 04:00 04:01 Temperature 100.0 F H Pulse Rate 88 90 Respiratory 19 Rate Blood Pressure 116/56 111/57 O2 Sat by Pulse 98 97 Oximetry 08/10/16 08/10/16 08/10/16 04:31 05:01 05:31 Temperature Pulse Rate 86 87 82 Respiratory 17 19 16 Rate Blood Pressure 111/57 129/57 129/57 O2 Sat by Pulse 98 97 99 Oximetry 08/10/16 08/10/16 08/10/16 06:00 06:31 07:01 Temperature Pulse Rate 87 85 83 Respiratory 14 18 17 Rate Blood Pressure 138/61 138/61 120/46 O2 Sat by Pulse 97 99 97 Oximetry 08/10/16 08/10/16 08/10/16 07:31 08:00 08:31 Temperature 97.8 F Pulse Rate 83 82 85 Respiratory 18 17 18 Rate Blood Pressure 120/46 118/54 118/54 O2 Sat by Pulse 99 96 98 Oximetry 08/10/16 08/10/16 08/10/16 09:00 09:13 09:31 Temperature Pulse Rate 85 92 H 77 Respiratory 17 20 20 Rate Blood Pressure 121/55 121/55 121/55 O2 Sat by Pulse 97 100 100 Oximetry 08/10/16 08/10/16 10:00 10:01 Temperature Pulse Rate 100 H Respiratory 25 H Rate Blood Pressure 152/70 O2 Sat by Pulse 100 98 Oximetry Constitutional: no acute distress, other (intubated, ) Eyes: other (pupils are equal, very slowly reactive) ENT: other (orally intubated) Neck: supple, no JVD Ascultation: Bilateral: clear, diminished breath sounds Gastrointestinal: normoactive bowel sounds, non-distended Integumentary: normal Extremities: no cyanosis, no edema Neurologic: other (no changes) CBC and BMP: 08/10/16 Unknown 08/10/16 Unknown ABG, PT/INR, D-dimer: ABG POC ABG pH 7.493 (7.35-7.45) H 08/09/16 06:00 POC ABG pCO2 38.8 (35-45) 08/09/16 06:00 POC ABG pO2 83 (80-105) 08/09/16 06:00 POC ABG HCO3 29.8 08/09/16 06:00 POC ABG Total CO2 31 08/09/16 06:00 POC ABG O2 Sat 97 08/09/16 06:00 PT/INR, D-dimer PT 17.2 Sec. (12.2-14.9) H 08/07/16 07:30 INR 1.41 (0.87-1.13) H 08/07/16 07:30 Abnormal lab findings: Abnormal Labs 07/31/16 07/31/16 07/31/16 08:39 10:07 12:07 WBC RBC Hgb Hct MCV MCH MCHC RDW Plt Count Lymph % (Auto) Hill % (Auto) Lymph # Hill # Seg Neutrophils % Seg Neuts % (Manual) Lymphocytes % (Manual) Monocytes % (Manual) Nucleated RBC % Seg Neutrophils # Man Lymphocytes # (Manual) PT INR APTT POC ABG pH POC ABG pCO2 POC ABG pO2 Sodium Carbon Dioxide BUN Creatinine Glucose POC Glucose 205 H 188 H Calcium AST ALT Alkaline Phosphatase Total Creatine Kinase 865 H CK-MB (CK-2) 5.9 H Total Protein Albumin 07/31/16 07/31/16 07/31/16 16:19 19:58 23:53 WBC RBC Hgb Hct MCV MCH MCHC RDW Plt Count Lymph % (Auto) Hill % (Auto) Lymph # Hill # Seg Neutrophils % Seg Neuts % (Manual) Lymphocytes % (Manual) Monocytes % (Manual) Nucleated RBC % Seg Neutrophils # Man Lymphocytes # (Manual) PT INR APTT POC ABG pH POC ABG pCO2 POC ABG pO2 Sodium Carbon Dioxide BUN Creatinine Glucose POC Glucose 195 H 147 H 160 H Calcium AST ALT Alkaline Phosphatase Total Creatine Kinase CK-MB (CK-2) Total Protein Albumin 08/01/16 08/01/16 08/01/16 04:18 04:42 07:45 WBC 14.8 H RBC Hgb 10.7 L Hct 34.9 L MCV 82 L MCH 25 L MCHC 31 L RDW 19.1 H Plt Count Lymph % (Auto) Hill % (Auto) Lymph # Hill # Seg Neutrophils % Seg Neuts % (Manual) 80.0 H Lymphocytes % (Manual) 12.0 L Monocytes % (Manual) Nucleated RBC % Seg Neutrophils # Man 11.8 H Lymphocytes # (Manual) PT INR APTT POC ABG pH POC ABG pCO2 33.4 L POC ABG pO2 66 L Sodium Carbon Dioxide BUN Creatinine Glucose POC Glucose 225 H Calcium AST ALT Alkaline Phosphatase Total Creatine Kinase CK-MB (CK-2) Total Protein Albumin 08/01/16 08/01/16 08/01/16 07:45 10:09 10:59 WBC RBC Hgb Hct MCV MCH MCHC RDW Plt Count Lymph % (Auto) Hill % (Auto) Lymph # Hill # Seg Neutrophils % Seg Neuts % (Manual) Lymphocytes % (Manual) Monocytes % (Manual) Nucleated RBC % Seg Neutrophils # Man Lymphocytes # (Manual) PT INR APTT POC ABG pH POC ABG pCO2 POC ABG pO2 Sodium Carbon Dioxide BUN 29 H Creatinine Glucose 233 H POC Glucose 266 H 318 H Calcium 7.6 L AST ALT Alkaline Phosphatase Total Creatine Kinase CK-MB (CK-2) Total Protein Albumin 08/01/16 08/01/16 08/01/16 14:24 17:56 21:21 WBC RBC Hgb Hct MCV MCH MCHC RDW Plt Count Lymph % (Auto) Hill % (Auto) Lymph # Hill # Seg Neutrophils % Seg Neuts % (Manual) Lymphocytes % (Manual) Monocytes % (Manual) Nucleated RBC % Seg Neutrophils # Man Lymphocytes # (Manual) PT INR APTT POC ABG pH POC ABG pCO2 POC ABG pO2 Sodium Carbon Dioxide BUN Creatinine Glucose POC Glucose 298 H 239 H 203 H Calcium AST ALT Alkaline Phosphatase Total Creatine Kinase CK-MB (CK-2) Total Protein Albumin 08/02/16 08/02/16 08/02/16 02:05 03:55 05:38 WBC RBC Hgb Hct MCV MCH MCHC RDW Plt Count Lymph % (Auto) Hill % (Auto) Lymph # Hill # Seg Neutrophils % Seg Neuts % (Manual) Lymphocytes % (Manual) Monocytes % (Manual) Nucleated RBC % Seg Neutrophils # Man Lymphocytes # (Manual) PT INR APTT POC ABG pH 7.460 H POC ABG pCO2 31.2 L POC ABG pO2 71 L Sodium Carbon Dioxide BUN Creatinine Glucose POC Glucose 248 H 253 H Calcium AST ALT Alkaline Phosphatase Total Creatine Kinase CK-MB (CK-2) Total Protein Albumin 08/02/16 08/02/16 08/02/16 09:11 09:44 09:44 WBC RBC 3.62 L Hgb 9.4 L Hct 29.1 L MCV 80 L MCH 26 L MCHC RDW 18.7 H Plt Count Lymph % (Auto) Hill % (Auto) 9.2 H Lymph # Hill # 1.0 H Seg Neutrophils % 72.0 H Seg Neuts % (Manual) Lymphocytes % (Manual) Monocytes % (Manual) Nucleated RBC % Seg Neutrophils # Man Lymphocytes # (Manual) PT INR APTT POC ABG pH POC ABG pCO2 POC ABG pO2 Sodium 135 L Carbon Dioxide 21 L BUN 42 H Creatinine Glucose 248 H POC Glucose 306 H Calcium 7.6 L AST ALT Alkaline Phosphatase Total Creatine Kinase CK-MB (CK-2) Total Protein Albumin 08/02/16 08/02/16 08/02/16 15:53 17:33 21:39 WBC RBC Hgb Hct MCV MCH MCHC RDW Plt Count Lymph % (Auto) Hill % (Auto) Lymph # Hill # Seg Neutrophils % Seg Neuts % (Manual) Lymphocytes % (Manual) Monocytes % (Manual) Nucleated RBC % Seg Neutrophils # Man Lymphocytes # (Manual) PT INR APTT POC ABG pH POC ABG pCO2 POC ABG pO2 Sodium Carbon Dioxide BUN Creatinine Glucose POC Glucose 205 H 250 H 282 H Calcium AST ALT Alkaline Phosphatase Total Creatine Kinase CK-MB (CK-2) Total Protein Albumin 08/03/16 08/03/16 08/03/16 02:28 05:47 07:05 WBC RBC 3.32 L Hgb 8.4 L Hct 26.5 L MCV 80 L MCH 25 L MCHC RDW 18.7 H Plt Count 112 L Lymph % (Auto) 12.5 L Hill % (Auto) 10.2 H Lymph # 1.0 L Hill # Seg Neutrophils % 75.9 H Seg Neuts % (Manual) Lymphocytes % (Manual) Monocytes % (Manual) Nucleated RBC % Seg Neutrophils # Man Lymphocytes # (Manual) PT INR APTT POC ABG pH POC ABG pCO2 POC ABG pO2 Sodium Carbon Dioxide BUN Creatinine Glucose POC Glucose 317 H 253 H Calcium AST ALT Alkaline Phosphatase Total Creatine Kinase CK-MB (CK-2) Total Protein Albumin 08/03/16 08/03/16 08/03/16 07:05 09:50 14:07 WBC RBC Hgb Hct MCV MCH MCHC RDW Plt Count Lymph % (Auto) Hill % (Auto) Lymph # Hill # Seg Neutrophils % Seg Neuts % (Manual) Lymphocytes % (Manual) Monocytes % (Manual) Nucleated RBC % Seg Neutrophils # Man Lymphocytes # (Manual) PT INR APTT POC ABG pH POC ABG pCO2 POC ABG pO2 Sodium 132 L Carbon Dioxide 20 L BUN 42 H Creatinine Glucose 243 H POC Glucose 332 H 345 H Calcium 6.8 L AST ALT Alkaline Phosphatase Total Creatine Kinase CK-MB (CK-2) Total Protein Albumin 08/03/16 08/03/16 08/04/16 17:38 21:36 02:18 WBC RBC Hgb Hct MCV MCH MCHC RDW Plt Count Lymph % (Auto) Hill % (Auto) Lymph # Hill # Seg Neutrophils % Seg Neuts % (Manual) Lymphocytes % (Manual) Monocytes % (Manual) Nucleated RBC % Seg Neutrophils # Man Lymphocytes # (Manual) PT INR APTT POC ABG pH POC ABG pCO2 POC ABG pO2 Sodium Carbon Dioxide BUN Creatinine Glucose POC Glucose 262 H 260 H 256 H Calcium AST ALT Alkaline Phosphatase Total Creatine Kinase CK-MB (CK-2) Total Protein Albumin 08/04/16 08/04/16 08/04/16 05:41 06:00 10:20 WBC RBC Hgb Hct MCV MCH MCHC RDW Plt Count Lymph % (Auto) Hill % (Auto) Lymph # Hill # Seg Neutrophils % Seg Neuts % (Manual) Lymphocytes % (Manual) Monocytes % (Manual) Nucleated RBC % Seg Neutrophils # Man Lymphocytes # (Manual) PT INR APTT POC ABG pH POC ABG pCO2 POC ABG pO2 Sodium Carbon Dioxide BUN 34 H Creatinine 0.7 L Glucose 237 H POC Glucose 265 H 266 H Calcium 7.9 L D AST ALT Alkaline Phosphatase Total Creatine Kinase CK-MB (CK-2) Total Protein Albumin 08/04/16 08/04/16 08/04/16 14:20 17:31 21:52 WBC RBC Hgb Hct MCV MCH MCHC RDW Plt Count Lymph % (Auto) Hill % (Auto) Lymph # Hill # Seg Neutrophils % Seg Neuts % (Manual) Lymphocytes % (Manual) Monocytes % (Manual) Nucleated RBC % Seg Neutrophils # Man Lymphocytes # (Manual) PT INR APTT POC ABG pH POC ABG pCO2 POC ABG pO2 Sodium Carbon Dioxide BUN Creatinine Glucose POC Glucose 302 H 337 H 340 H Calcium AST ALT Alkaline Phosphatase Total Creatine Kinase CK-MB (CK-2) Total Protein Albumin 08/05/16 08/05/16 08/05/16 01:43 05:00 05:00 WBC RBC Hgb 9.5 L Hct 30.1 L MCV 81 L MCH 26 L MCHC RDW 19.1 H Plt Count 112 L Lymph % (Auto) Hill % (Auto) Lymph # Hill # Seg Neutrophils % Seg Neuts % (Manual) Lymphocytes % (Manual) Monocytes % (Manual) Nucleated RBC % Seg Neutrophils # Man Lymphocytes # (Manual) PT INR APTT POC ABG pH POC ABG pCO2 POC ABG pO2 Sodium Carbon Dioxide BUN 27 H Creatinine 0.7 L Glucose 212 H POC Glucose 247 H Calcium 8.3 L AST 92 H ALT 81 H Alkaline Phosphatase 629 H Total Creatine Kinase CK-MB (CK-2) Total Protein 5.9 L Albumin 2.2 L 08/05/16 08/05/16 08/05/16 05:14 05:19 10:12 WBC RBC Hgb Hct MCV MCH MCHC RDW Plt Count Lymph % (Auto) Hill % (Auto) Lymph # [place] # Seg Neutrophils % Seg Neuts % (Manual) Lymphocytes % (Manual) Monocytes % (Manual) Nucleated RBC % Seg Neutrophils # Man Lymphocytes # (Manual) PT INR APTT POC ABG pH 7.469 H POC ABG pCO2 POC ABG pO2 109 H Sodium Carbon Dioxide BUN Creatinine Glucose POC Glucose 208 H 206 H Calcium AST ALT Alkaline Phosphatase Total Creatine Kinase CK-MB (CK-2) Total Protein Albumin 08/05/16 08/05/16 08/05/16 13:54 18:31 22:06 WBC RBC Hgb Hct MCV MCH MCHC RDW Plt Count Lymph % (Auto) Hill % (Auto) Lymph # [place] # Seg Neutrophils % Seg Neuts % (Manual) Lymphocytes % (Manual) Monocytes % (Manual) Nucleated RBC % Seg Neutrophils # Man Lymphocytes # (Manual) PT INR APTT POC ABG pH POC ABG pCO2 POC ABG pO2 Sodium Carbon Dioxide BUN Creatinine Glucose POC Glucose 226 H 229 H 245 H Calcium AST ALT Alkaline Phosphatase Total Creatine Kinase CK-MB (CK-2) Total Protein Albumin 08/06/16 08/06/16 08/06/16 02:03 05:31 05:42 WBC RBC Hgb Hct MCV MCH MCHC RDW Plt Count Lymph % (Auto) Hill % (Auto) Lymph # [place] # Seg Neutrophils % Seg Neuts % (Manual) Lymphocytes % (Manual) Monocytes % (Manual) Nucleated RBC % Seg Neutrophils # Man Lymphocytes # (Manual) PT INR APTT POC ABG pH POC ABG pCO2 POC ABG pO2 62 L Sodium Carbon Dioxide BUN Creatinine Glucose POC Glucose 237 H 205 H Calcium AST ALT Alkaline Phosphatase Total Creatine Kinase CK-MB (CK-2) Total Protein Albumin 08/06/16 08/06/16 08/06/16 09:36 11:30 14:23 WBC RBC Hgb Hct MCV MCH MCHC RDW Plt Count Lymph % (Auto) Hill % (Auto) Lymph # [place] # Seg Neutrophils % Seg Neuts % (Manual) Lymphocytes % (Manual) Monocytes % (Manual) Nucleated RBC % Seg Neutrophils # Man Lymphocytes # (Manual) PT 18.9 H INR 1.59 H APTT 39.7 H POC ABG pH POC ABG pCO2 POC ABG pO2 Sodium Carbon Dioxide BUN Creatinine Glucose POC Glucose 279 H 264 H Calcium AST ALT Alkaline Phosphatase Total Creatine Kinase CK-MB (CK-2) Total Protein Albumin 08/06/16 08/07/16 08/07/16 18:07 03:01 05:18 WBC RBC Hgb Hct MCV MCH MCHC RDW Plt Count Lymph % (Auto) Hill % (Auto) Lymph # [place] # Seg Neutrophils % Seg Neuts % (Manual) Lymphocytes % (Manual) Monocytes % (Manual) Nucleated RBC % Seg Neutrophils # Man Lymphocytes # (Manual) PT INR APTT POC ABG pH 7.459 H POC ABG pCO2 POC ABG pO2 Sodium Carbon Dioxide BUN Creatinine Glucose POC Glucose 176 H 172 H Calcium AST ALT Alkaline Phosphatase Total Creatine Kinase CK-MB (CK-2) Total Protein Albumin 08/07/16 08/07/16 08/07/16 05:32 07:30 07:30 WBC RBC 3.39 L Hgb 8.6 L Hct 27.2 L MCV 80 L MCH 25 L MCHC RDW 19.1 H Plt Count 136 L Lymph % (Auto) Hill % (Auto) Lymph # [place] # Seg Neutrophils % Seg Neuts % (Manual) 84.0 H Lymphocytes % (Manual) 4.0 L Monocytes % (Manual) 8.0 H Nucleated RBC % Seg Neutrophils # Man 8.2 H Lymphocytes # (Manual) 0.4 L PT 17.2 H INR 1.41 H APTT POC ABG pH POC ABG pCO2 POC ABG pO2 Sodium Carbon Dioxide BUN Creatinine Glucose POC Glucose 204 H Calcium AST ALT Alkaline Phosphatase Total Creatine Kinase CK-MB (CK-2) Total Protein Albumin 08/07/16 08/07/16 08/07/16 07:30 10:03 14:35 WBC RBC Hgb Hct MCV MCH MCHC RDW Plt Count Lymph % (Auto) Hill % (Auto) Lymph # [place] # Seg Neutrophils % Seg Neuts % (Manual) Lymphocytes % (Manual) Monocytes % (Manual) Nucleated RBC % Seg Neutrophils # Man Lymphocytes # (Manual) PT INR APTT POC ABG pH POC ABG pCO2 POC ABG pO2 Sodium Carbon Dioxide BUN 27 H Creatinine 0.7 L Glucose 201 H POC Glucose 233 H 255 H Calcium 7.9 L AST 73 H ALT 74 H Alkaline Phosphatase 595 H Total Creatine Kinase CK-MB (CK-2) Total Protein 5.1 L Albumin 1.8 L 08/07/16 08/07/16 08/08/16 16:09 22:01 01:27 WBC RBC Hgb Hct MCV MCH MCHC RDW Plt Count Lymph % (Auto) Hill % (Auto) Lymph # [place] # Seg Neutrophils % Seg Neuts % (Manual) Lymphocytes % (Manual) Monocytes % (Manual) Nucleated RBC % Seg Neutrophils # Man Lymphocytes # (Manual) PT INR APTT POC ABG pH POC ABG pCO2 POC ABG pO2 Sodium Carbon Dioxide BUN Creatinine Glucose POC Glucose 259 H 255 H 252 H Calcium AST ALT Alkaline Phosphatase Total Creatine Kinase CK-MB (CK-2) Total Protein Albumin 08/08/16 08/08/16 08/08/16 05:13 06:23 07:40 WBC RBC 3.36 L Hgb 8.5 L Hct 27.1 L MCV 81 L MCH 25 L MCHC 31 L RDW 18.8 H Plt Count 129 L Lymph % (Auto) Hill % (Auto) Lymph # [place] # Seg Neutrophils % Seg Neuts % (Manual) Lymphocytes % (Manual) Monocytes % (Manual) Nucleated RBC % 2.0 H Seg Neutrophils # Man Lymphocytes # (Manual) PT INR APTT POC ABG pH 7.460 H POC ABG pCO2 POC ABG pO2 74 L Sodium Carbon Dioxide BUN Creatinine Glucose POC Glucose 264 H Calcium AST ALT Alkaline Phosphatase Total Creatine Kinase CK-MB (CK-2) Total Protein Albumin 08/08/16 08/08/16 08/08/16 07:40 10:01 15:00 WBC RBC Hgb Hct MCV MCH MCHC RDW Plt Count Lymph % (Auto) Hill % (Auto) Lymph # Hill # Seg Neutrophils % Seg Neuts % (Manual) Lymphocytes % (Manual) Monocytes % (Manual) Nucleated RBC % Seg Neutrophils # Man Lymphocytes # (Manual) PT INR APTT POC ABG pH POC ABG pCO2 POC ABG pO2 Sodium Carbon Dioxide BUN 26 H Creatinine 0.7 L Glucose 233 H POC Glucose 271 H 275 H Calcium 7.6 L AST 77 H ALT 71 H Alkaline Phosphatase 658 H Total Creatine Kinase CK-MB (CK-2) Total Protein 5.0 L Albumin 1.6 L 08/08/16 08/08/16 08/08/16 17:28 21:32 23:53 WBC RBC Hgb Hct MCV MCH MCHC RDW Plt Count Lymph % (Auto) Hill % (Auto) Lymph # [place] # Seg Neutrophils % Seg Neuts % (Manual) Lymphocytes % (Manual) Monocytes % (Manual) Nucleated RBC % Seg Neutrophils # Man Lymphocytes # (Manual) PT INR APTT POC ABG pH POC ABG pCO2 POC ABG pO2 Sodium Carbon Dioxide BUN Creatinine Glucose POC Glucose 275 H 252 H 246 H Calcium AST ALT Alkaline Phosphatase Total Creatine Kinase CK-MB (CK-2) Total Protein Albumin 08/09/16 08/09/16 08/09/16 03:32 05:00 05:00 WBC RBC 3.34 L Hgb 8.3 L Hct 26.7 L MCV 80 L MCH 25 L MCHC 31 L RDW 18.5 H Plt Count Lymph % (Auto) Hill % (Auto) Lymph # [place] # Seg Neutrophils % Seg Neuts % (Manual) Lymphocytes % (Manual) Monocytes % (Manual) Nucleated RBC % Seg Neutrophils # Man Lymphocytes # (Manual) PT INR APTT POC ABG pH POC ABG pCO2 POC ABG pO2 Sodium Carbon Dioxide BUN 25 H Creatinine 0.5 L Glucose 230 H POC Glucose 260 H Calcium 7.6 L AST ALT Alkaline Phosphatase Total Creatine Kinase CK-MB (CK-2) Total Protein Albumin 08/09/16 08/09/16 08/09/16 06:00 10:07 14:07 WBC RBC Hgb Hct MCV MCH MCHC RDW Plt Count Lymph % (Auto) Hill % (Auto) Lymph # Hill # Seg Neutrophils % Seg Neuts % (Manual) Lymphocytes % (Manual) Monocytes % (Manual) Nucleated RBC % Seg Neutrophils # Man Lymphocytes # (Manual) PT INR APTT POC ABG pH 7.493 H POC ABG pCO2 POC ABG pO2 Sodium Carbon Dioxide BUN Creatinine Glucose POC Glucose 216 H 220 H Calcium AST ALT Alkaline Phosphatase Total Creatine Kinase CK-MB (CK-2) Total Protein Albumin 08/09/16 08/09/16 08/10/16 16:55 21:07 02:09 WBC RBC Hgb Hct MCV MCH MCHC RDW Plt Count Lymph % (Auto) Hill % (Auto) Lymph # Hill # Seg Neutrophils % Seg Neuts % (Manual) Lymphocytes % (Manual) Monocytes % (Manual) Nucleated RBC % Seg Neutrophils # Man Lymphocytes # (Manual) PT INR APTT POC ABG pH POC ABG pCO2 POC ABG pO2 Sodium Carbon Dioxide BUN Creatinine Glucose POC Glucose 242 H 235 H 228 H Calcium AST ALT Alkaline Phosphatase Total Creatine Kinase CK-MB (CK-2) Total Protein Albumin 08/10/16 08/10/16 08/10/16 05:31 Unknown Unknown WBC RBC 3.42 L Hgb 8.6 L Hct 27.5 L MCV 80 L MCH 25 L MCHC RDW 19.1 H Plt Count Lymph % (Auto) Hill % (Auto) Lymph # [place] # Seg Neutrophils % Seg Neuts % (Manual) Lymphocytes % (Manual) Monocytes % (Manual) Nucleated RBC % Seg Neutrophils # Man Lymphocytes # (Manual) PT INR APTT POC ABG pH POC ABG pCO2 POC ABG pO2 Sodium Carbon Dioxide BUN 27 H Creatinine 0.6 L Glucose 211 H POC Glucose 201 H Calcium 7.8 L AST ALT Alkaline Phosphatase Total Creatine Kinase CK-MB (CK-2) Total Protein Albumin
[2016-08-10] MEDS ORDERED: WATER FOR INJ (PF) 10 ML ONE (10:37)
--- NOTE | 2016-08-11 06:51 | Progress Note ---
Assessment and Plan - Patient Problems (1) Acute respiratory failure Current Visit: Yes Status: Acute Qualifiers: Respiratory failure complication: hypoxia Qualified Code(s): J96.01 - Acute respiratory failure with hypoxia Plan to address problem: Continue inhaled Tobramycin. (2) Altered mental status Current Visit: Yes Status: Acute Qualifiers: Altered mental status type: stupor Coma depth: C Coma timing: C Qualified Code(s): R40.1 - Stupor Plan to address problem: 1. Patient is off sedation. Slowly increasing level of consciousness. 2. No infectious etiology is evident to explain patient's AMS. Subjective Date of service: 08/11/16 Principal diagnosis: acute respiratory failure Interval history: Afebrile. Remains in ICU. Objective - Constitutional Vitals: Vital Signs Temp Pulse Resp BP Pulse Ox 99.3 F 81 17 141/63 98 08/11/16 04:00 08/11/16 06:00 08/11/16 06:00 08/11/16 06:00 08/11/16 06:00 Temperature -Last 24 Hours Temperature 99.3 F Temperature 99.9 F Temperature 99.5 F Temperature 99.9 F Temperature 99.2 F Temperature 97.8 F General appearance: Present: no acute distress, well-nourished - EENT ENT: other (ET tube, FiO2 30%) - Respiratory Respiratory: bilateral: CTA, negative: rales - Cardiovascular Rhythm: regular Heart Sounds: Present: S1 & S2 Extremity abnormal: edema (trace edema) - Gastrointestinal General gastrointestinal: Present: soft, distended (mild distention, unchanged intervally), hypoactive bowel sounds Rectal Exam: other (rectal tube with small amoutn of watery stool) - Genitourinary Male genitourinary: normal (Carter with yellow urine) - Integumentary Integumentary: clear, no jaundice, no rash - Neurologic Neurologic: other (attempts to open eyes upon deep tactile stimulation) - Additional findings Additional findings: PICC left arm - Labs CBC & Chem 7: 08/10/16 Unknown 08/10/16 Unknown Labs: Abnormal lab results 08/09/16 08/10/16 08/10/16 Range/Units 16:55 09:06 13:45 POC Glucose 242 H 229 H 274 H (70-105) 08/10/16 08/10/16 08/11/16 Range/Units 17:53 21:43 01:37 POC Glucose 284 H 328 H 340 H (70-105) 08/11/16 Range/Units 05:39 POC Glucose 323 H (70-105) Microbiology 08/04/16 11:54 Cerebral Spinal Fluid CSF Culture - Final 08/04/16 11:54 Cerebral Spinal Fluid Cryptococcal Antigen - Final 08/03/16 Unknown Tracheal Aspirate Sputum Culture - Final Pseudomonas Aeruginosa Escherichia Coli 08/01/16 13:18 Peripheral/Venous Blood Culture - Final NO GROWTH AFTER 5 DAYS 08/01/16 10:57 Peripheral/Venous Blood Culture - Final NO GROWTH AFTER 5 DAYS 07/30/16 23:34 Tracheal Aspirate Sputum Culture - Final
[2016-08-11] MEDS: TOBRAMYCIN INHALATION (NICU) (40 MG/ML) IH SCH ×2 (08:55→19:49)
--- NOTE | 2016-08-11 09:15 | Progress Note ---
Assessment and Plan Assessment and plan: Patient is 76 year-old man with a history of hypertension, diabetes, hyperlipidemia, BPH, was brought to the emergency room because son found him on the floor unresponsive. Patient was intubated in the emergency room. MRI of brain showed b/l acute CVA. Tracheal aspirate growing Pseudomonas Aeruginosa and Escherichia Coli. Failing weaning trial from vent, may need trach. 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 -CSF Cryptococcal Antigen negative - CT head was unremarkable on admission - EEG showed no seizure Acut ischemic stroke, bilateral - likely present since admission - Continue Aspirin - neuro following Elevated LFTs - Obtained ultrasound of the abdomen - US showed cholelithiasis without cholecystitis - monitor LFT as he is on statin Hypertension - continue to monitor Diabetes mellitus type 2 Hyperlipidemia - cont statin BPH - monitor urine output Sepsis with PNA -pt has elevated white count on admission and tachycardia -tracheal aspirate grew Pseudomonas, resistant to zosyn -Now started on Tobramycin. Discontinued Meropenem and Acyclovir. I discussed with ID Physician Prognosis guarded History Interval history: Still intubated. Still unable to wean Fever Opens eyes Hospitalist Physical - Physical exam Narrative exam: Gen Appearance: intubated, on vent HEENT: normocephalic, atraumatic Neck: no JVD Lungs: clear to auscultation bilaterally, no crackles or wheezes Heart: S1 and S2 regular, no murmurs or gallop Abdomen: Soft, non-tender, non-distended, normal bowel sounds Extremity:No edema, clubbing or cyanosis Neuro : Intubated, sedated - Constitutional Vitals: Temp Pulse Resp BP Pulse Ox 99.1 F 88 18 126/62 100 08/11/16 08:00 08/11/16 08:55 08/11/16 08:55 08/11/16 08:26 08/11/16 08:26 General appearance: Present: well-nourished, other (intubated, FiO2 30%) Results - Labs CBC & Chem 7: 08/10/16 Unknown 08/10/16 Unknown Labs: Laboratory Last Values WBC 8.9 K/mm3 (4.5-11.0) 08/10/16 Unknown RBC 3.42 M/mm3 (3.65-5.03) L 08/10/16 Unknown Hgb 8.6 gm/dl (11.8-15.2) L 08/10/16 Unknown Hct 27.5 % (35.5-45.6) L 08/10/16 Unknown MCV 80 fl (84-94) L 08/10/16 Unknown MCH 25 pg (28-32) L 08/10/16 Unknown MCHC 32 % (32-34) 08/10/16 Unknown RDW 19.1 % (13.2-15.2) H 08/10/16 Unknown Plt Count 168 K/mm3 (140-440) 08/10/16 Unknown Lymph % (Auto) Oxygen Therapist 08/08/16 07:40 Gem % (Auto) Oxygen Therapist 08/08/16 07:40 Eos % (Auto) Oxygen Therapist 08/08/16 07:40 Baso % (Auto) Oxygen Therapist 08/08/16 07:40 Lymph # Oxygen Therapist 08/08/16 07:40 Gem # Oxygen Therapist 08/08/16 07:40 Eos # Oxygen Therapist 08/08/16 07:40 Baso # Oxygen Therapist 08/08/16 07:40 Add Manual Diff Complete 08/08/16 07:40 Total Counted 100 08/08/16 07:40 Seg Neutrophils % Oxygen Therapist 08/08/16 07:40 Seg Neuts % (Manual) 68.0 % (40.0-70.0) 08/08/16 07:40 Band Neutrophils % 2.0 % 08/08/16 07:40 Lymphocytes % (Manual) 25.0 % (13.4-35.0) 08/08/16 07:40 Reactive Lymphs % (Man) 0 % 08/08/16 07:40 Monocytes % (Manual) 3.0 % (0.0-7.3) 08/08/16 07:40 Eosinophils % (Manual) 2.0 % (0.0-4.3) 08/08/16 07:40 Basophils % (Manual) 0 % (0.0-1.8) 08/08/16 07:40 Metamyelocytes % 0 % 08/08/16 07:40 Myelocytes % 0 % 08/08/16 07:40 Promyelocytes % 0 % 08/08/16 07:40 Blast Cells % 0 % 08/08/16 07:40 Nucleated RBC % 2.0 % (0.0-0.9) H 08/08/16 07:40 Seg Neutrophils # Oxygen Therapist 08/08/16 07:40 Seg Neutrophils # Man 5.9 K/mm3 (1.8-7.7) 08/08/16 07:40 Band Neutrophils # 0.2 K/mm3 08/08/16 07:40 Lymphocytes # (Manual) 2.2 K/mm3 (1.2-5.4) 08/08/16 07:40 Abs React Lymphs (Man) 0.0 K/mm3 08/08/16 07:40 Monocytes # (Manual) 0.3 K/mm3 (0.0-0.8) 08/08/16 07:40 Eosinophils # (Manual) 0.2 K/mm3 (0.0-0.4) 08/08/16 07:40 Basophils # (Manual) 0.0 K/mm3 (0.0-0.1) 08/08/16 07:40 Metamyelocytes # 0.0 K/mm3 08/08/16 07:40 Myelocytes # 0.0 K/mm3 08/08/16 07:40 Promyelocytes # 0.0 K/mm3 08/08/16 07:40 Blast Cells # 0.0 K/mm3 08/08/16 07:40 WBC Morphology Not Reportable 08/08/16 07:40 Hypersegmented Neuts Not Reportable 08/08/16 07:40 Hyposegmented Neuts Not Reportable 08/08/16 07:40 Hypogranular Neuts Not Reportable 08/08/16 07:40 Smudge Cells Not Reportable 08/08/16 07:40 Toxic Granulation Not Reportable 08/08/16 07:40 Toxic Vacuolation Not Reportable 08/08/16 07:40 Dohle Bodies Not Reportable 08/08/16 07:40 Pelger-Huet Anomaly Not Reportable 08/08/16 07:40 Leta Rods Not Reportable 08/08/16 07:40 Platelet Estimate Consistent w auto 08/08/16 07:40 Clumped Platelets Not Reportable 08/08/16 07:40 Plt Clumps, EDTA Not Reportable 08/08/16 07:40 Large Platelets Not Reportable 08/08/16 07:40 Giant Platelets Not Reportable 08/08/16 07:40 Platelet Satelliting Not Reportable 08/08/16 07:40 Plt Morphology Comment Not Reportable 08/08/16 07:40 RBC Morphology Not Reportable 08/08/16 07:40 Dimorphic RBCs Not Reportable 08/08/16 07:40 Polychromasia Few 08/08/16 07:40 Hypochromasia Few 08/08/16 07:40 Poikilocytosis Not Reportable 08/08/16 07:40 Anisocytosis 1+ 08/08/16 07:40 Microcytosis Not Reportable 08/08/16 07:40 Macrocytosis Few 08/08/16 07:40 Spherocytes Not Reportable 08/08/16 07:40 Pappenheimer Bodies Not Reportable 08/08/16 07:40 Sickle Cells Not Reportable 08/08/16 07:40 Target Cells Few 08/08/16 07:40 Tear Drop Cells Few 08/08/16 07:40 Ovalocytes Not Reportable 08/08/16 07:40 Helmet Cells Not Reportable 08/08/16 07:40 [place] Bodies Not Reportable 08/08/16 07:40 [place] Rings Not Reportable 08/08/16 07:40 [place] Cells Not Reportable 08/08/16 07:40 Bite Cells Not Reportable 08/08/16 07:40 Crenated Cell Not Reportable 08/08/16 07:40 Elliptocytes Not Reportable 08/08/16 07:40 Acanthocytes (Spur) Not Reportable 08/08/16 07:40 Rouleaux Not Reportable 08/08/16 07:40 Hemoglobin C Crystals Not Reportable 08/08/16 07:40 Schistocytes Not Reportable 08/08/16 07:40 Malaria parasites Not Reportable 08/08/16 07:40 Reece Bodies Not Reportable 08/08/16 07:40 Hem Pathologist Commnt No 08/08/16 07:40 PT 17.2 Sec. (12.2-14.9) H 08/07/16 07:30 INR 1.41 (0.87-1.13) H 08/07/16 07:30 APTT 36.5 Sec. (24.2-36.6) 08/07/16 07:30 POC ABG pH 7.493 (7.35-7.45) H 08/09/16 06:00 POC ABG pCO2 38.8 (35-45) 08/09/16 06:00 POC ABG pO2 83 (80-105) 08/09/16 06:00 POC ABG HCO3 29.8 08/09/16 06:00 POC ABG Total CO2 31 08/09/16 06:00 POC ABG O2 Sat 97 08/09/16 06:00 POC ABG Base Excess 6 08/09/16 06:00 VBG pH 7.447 (7.320-7.420) H 07/31/16 00:13 FiO2 30 % 08/09/16 06:00 Sodium 138 mmol/L (137-145) 08/10/16 Unknown Potassium 4.1 mmol/L (3.6-5.0) 08/10/16 Unknown Chloride 101.1 mmol/L (98-107) 08/10/16 Unknown Carbon Dioxide 30 mmol/L (22-30) 08/10/16 Unknown Anion Gap 11 mmol/L 08/10/16 Unknown BUN 27 mg/dL (9-20) H 08/10/16 Unknown Creatinine 0.6 mg/dL (0.8-1.5) L 08/10/16 Unknown Estimated GFR > 60 ml/min 08/10/16 Unknown BUN/Creatinine Ratio 45.00 % 08/10/16 Unknown Glucose 211 mg/dL (75-100) H 08/10/16 Unknown POC Glucose 323 (70-105) H 08/11/16 05:39 Lactic Acid 1.00 mmol/L (0.7-2.0) 07/31/16 00:13 Calcium 7.8 mg/dL (8.4-10.2) L 08/10/16 Unknown Total Bilirubin 0.20 mg/dL (0.1-1.2) 08/08/16 07:40 AST 77 units/L (5-40) H 08/08/16 07:40 ALT 71 units/L (7-56) H 08/08/16 07:40 Alkaline Phosphatase 658 units/L (35-129) H 08/08/16 07:40 Ammonia 49.0 umol/L (25-60) 07/31/16 00:13 Total Creatine Kinase 865 units/L (55-170) H 07/31/16 08:39 CK-MB (CK-2) 5.9 ng/mL (0.0-4.0) H 07/31/16 08:39 CK-MB (CK-2) Rel Index 0.6 (0-4) 07/31/16 08:39 Troponin T 0.011 ng/mL (0.00-0.029) 07/31/16 08:39 Total Protein 5.0 g/dL (6.3-8.2) L 08/08/16 07:40 Albumin 1.6 g/dL (3.9-5) L 08/08/16 07:40 Albumin/Globulin Ratio 0.5 % 08/08/16 07:40 TSH 1.420 mlU/mL (0.270-4.200) 08/04/16 09:50 CSF Appearance Clear 08/04/16 11:54 CSF Color Colorless 08/04/16 11:54 CSF WBC 2 /mm3 (1-10) 08/04/16 11:54 CSF RBC 30 /mm3 (0-0) 08/04/16 11:54 CSF Seg Neutrophils 0 % (0-6) 08/04/16 11:54 CSF Lymphocytes % 66.7 % (40-80) 08/04/16 11:54 CSF Reactive Lymphs 0 % 08/04/16 11:54 CSF Monocytes % 33.3 % (15-45) 08/04/16 11:54 CSF Eosinophils % 0 % 08/04/16 11:54 CSF Basophils 0 % 08/04/16 11:54 CSF Pathologist Review C 08/04/16 11:54 CSF Glucose 90 mg/dL 08/04/16 11:54 CSF Total Protein 93 mg/dL 08/04/16 11:54 CSF VDRL Nonreactive (Nonreactive) 08/04/16 11:54 Salicylates < 0.3 mg/dL (2.8-20.0) L 07/31/16 00:02 Acetaminophen < 15.0 ug/mL (10.0-30.0) 07/31/16 00:02 Miscellaneous Test Flexitest 1 08/04/16 11:54 Blood Type O POSITIVE 07/30/16 23:40 MARK Antibody Screen Negative 07/30/16 23:40
[2016-08-11] MEDS: ASPIRIN PO SCH (10:29)
[2016-08-11] MEDS: LEVEMIR SUB-Q SCH (10:29)
[2016-08-11] MEDS ORDERED: LEVEMIR SUB-Q ONE (10:35)
[2016-08-11] MEDS: PEPCID PO SCH ×2 (10:41→21:33)
--- NOTE | 2016-08-11 12:23 | Progress Note ---
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 1. Appreciate ID help. All cultures negative so abx therapy and antiviral therapy stopped. 2. Continue CPAP therapy as tolerated. Current mental state is not optimal for extubation. Will discuss with family the possibility of trach and PEG. Will call son at [facility]) [phone] 3. Discussed trach and peg on IT rounds. Await to speak with son. 4. Increase Levemir to 35. 5. Will continue to follow along with you CCT 31 minutes. Subjective Date of service: 08/11/16 Principal diagnosis: acute respiratory failure Interval history: No acute events. Tolerating PSV better this am. No family at bedside. Objective Vital Signs - 12hr 08/11/16 08/11/16 08/11/16 01:00 02:00 02:17 Temperature Pulse Rate 82 93 H 86 Pulse Rate [ Anterior Bilateral Throughout] Pulse Rate [ From Monitor] Pulse Rate [ Left Upper Lobe ] Respiratory 16 12 Rate Respiratory Rate [Anterior Bilateral Throughout] Respiratory Rate [Left Upper Lobe] Blood Pressure 126/49 132/52 O2 Sat by Pulse 99 93 Oximetry 08/11/16 08/11/16 08/11/16 03:01 04:00 04:01 Temperature 99.3 F Pulse Rate 98 H 83 Pulse Rate [ Anterior Bilateral Throughout] Pulse Rate [ 83 From Monitor] Pulse Rate [ Left Upper Lobe ] Respiratory 20 19 19 Rate Respiratory Rate [Anterior Bilateral Throughout] Respiratory Rate [Left Upper Lobe] Blood Pressure 132/52 144/61 O2 Sat by Pulse 98 98 Oximetry 08/11/16 08/11/16 08/11/16 04:13 05:00 06:00 Temperature Pulse Rate 84 82 81 Pulse Rate [ Anterior Bilateral Throughout] Pulse Rate [ From Monitor] Pulse Rate [ Left Upper Lobe ] Respiratory 19 17 Rate Respiratory Rate [Anterior Bilateral Throughout] Respiratory Rate [Left Upper Lobe] Blood Pressure 144/61 143/62 141/63 O2 Sat by Pulse 99 95 98 Oximetry 08/11/16 08/11/16 08/11/16 07:00 08:00 08:23 Temperature 99.1 F Pulse Rate 88 92 H 92 H Pulse Rate [ Anterior Bilateral Throughout] Pulse Rate [ From Monitor] Pulse Rate [ Left Upper Lobe ] Respiratory 22 20 Rate Respiratory Rate [Anterior Bilateral Throughout] Respiratory Rate [Left Upper Lobe] Blood Pressure 144/68 126/62 126/62 O2 Sat by Pulse 98 97 100 Oximetry 08/11/16 08/11/16 08/11/16 08:26 08:55 09:00 Temperature Pulse Rate 84 89 Pulse Rate [ 88 Anterior Bilateral Throughout] Pulse Rate [ From Monitor] Pulse Rate [ Left Upper Lobe ] Respiratory 25 H 20 Rate Respiratory 18 Rate [Anterior Bilateral Throughout] Respiratory Rate [Left Upper Lobe] Blood Pressure 126/62 147/63 O2 Sat by Pulse 100 100 Oximetry 08/11/16 08/11/16 08/11/16 09:20 10:00 11:00 Temperature Pulse Rate 91 H 89 Pulse Rate [ Anterior Bilateral Throughout] Pulse Rate [ From Monitor] Pulse Rate [ 89 Left Upper Lobe ] Respiratory 17 16 Rate Respiratory Rate [Anterior Bilateral Throughout] Respiratory 21 Rate [Left Upper Lobe] Blood Pressure 129/67 138/61 O2 Sat by Pulse 96 97 Oximetry 08/11/16 11:33 Temperature Pulse Rate 84 Pulse Rate [ Anterior Bilateral Throughout] Pulse Rate [ From Monitor] Pulse Rate [ Left Upper Lobe ] Respiratory 16 Rate Respiratory Rate [Anterior Bilateral Throughout] Respiratory Rate [Left Upper Lobe] Blood Pressure 138/61 O2 Sat by Pulse 99 Oximetry Constitutional: no acute distress, other (intubated, ) Eyes: other (pupils are equal, very slowly reactive) ENT: other (orally intubated) Neck: supple, no JVD Ascultation: Bilateral: clear, diminished breath sounds Gastrointestinal: normoactive bowel sounds, non-distended Integumentary: normal Extremities: no cyanosis, no edema Neurologic: other (no changes) CBC and BMP: 08/10/16 Unknown 08/10/16 Unknown ABG, PT/INR, D-dimer: ABG POC ABG pH 7.493 (7.35-7.45) H 08/09/16 06:00 POC ABG pCO2 38.8 (35-45) 08/09/16 06:00 POC ABG pO2 83 (80-105) 08/09/16 06:00 POC ABG HCO3 29.8 08/09/16 06:00 POC ABG Total CO2 31 08/09/16 06:00 POC ABG O2 Sat 97 08/09/16 06:00 PT/INR, D-dimer PT 17.2 Sec. (12.2-14.9) H 08/07/16 07:30 INR 1.41 (0.87-1.13) H 08/07/16 07:30 Abnormal lab findings: Abnormal Labs 07/31/16 07/31/16 07/31/16 08:39 10:07 12:07 WBC RBC Hgb Hct MCV MCH MCHC RDW Plt Count Lymph % (Auto) [place] % (Auto) Lymph # [place] # Seg Neutrophils % Seg Neuts % (Manual) Lymphocytes % (Manual) Monocytes % (Manual) Nucleated RBC % Seg Neutrophils # Man Lymphocytes # (Manual) PT INR APTT POC ABG pH POC ABG pCO2 POC ABG pO2 Sodium Carbon Dioxide BUN Creatinine Glucose POC Glucose 205 H 188 H Calcium AST ALT Alkaline Phosphatase Total Creatine Kinase 865 H CK-MB (CK-2) 5.9 H Total Protein Albumin 07/31/16 07/31/16 07/31/16 16:19 19:58 23:53 WBC RBC Hgb Hct MCV MCH MCHC RDW Plt Count Lymph % (Auto) [place] % (Auto) Lymph # [place] # Seg Neutrophils % Seg Neuts % (Manual) Lymphocytes % (Manual) Monocytes % (Manual) Nucleated RBC % Seg Neutrophils # Man Lymphocytes # (Manual) PT INR APTT POC ABG pH POC ABG pCO2 POC ABG pO2 Sodium Carbon Dioxide BUN Creatinine Glucose POC Glucose 195 H 147 H 160 H Calcium AST ALT Alkaline Phosphatase Total Creatine Kinase CK-MB (CK-2) Total Protein Albumin 08/01/16 08/01/16 08/01/16 04:18 04:42 07:45 WBC 14.8 H RBC Hgb 10.7 L Hct 34.9 L MCV 82 L MCH 25 L MCHC 31 L RDW 19.1 H Plt Count Lymph % (Auto) [place] % (Auto) Lymph # [place] # Seg Neutrophils % Seg Neuts % (Manual) 80.0 H Lymphocytes % (Manual) 12.0 L Monocytes % (Manual) Nucleated RBC % Seg Neutrophils # Man 11.8 H Lymphocytes # (Manual) PT INR APTT POC ABG pH POC ABG pCO2 33.4 L POC ABG pO2 66 L Sodium Carbon Dioxide BUN Creatinine Glucose POC Glucose 225 H Calcium AST ALT Alkaline Phosphatase Total Creatine Kinase CK-MB (CK-2) Total Protein Albumin 08/01/16 08/01/16 08/01/16 07:45 10:09 10:59 WBC RBC Hgb Hct MCV MCH MCHC RDW Plt Count Lymph % (Auto) [place] % (Auto) Lymph # [place] # Seg Neutrophils % Seg Neuts % (Manual) Lymphocytes % (Manual) Monocytes % (Manual) Nucleated RBC % Seg Neutrophils # Man Lymphocytes # (Manual) PT INR APTT POC ABG pH POC ABG pCO2 POC ABG pO2 Sodium Carbon Dioxide BUN 29 H Creatinine Glucose 233 H POC Glucose 266 H 318 H Calcium 7.6 L AST ALT Alkaline Phosphatase Total Creatine Kinase CK-MB (CK-2) Total Protein Albumin 08/01/16 08/01/16 08/01/16 14:24 17:56 21:21 WBC RBC Hgb Hct MCV MCH MCHC RDW Plt Count Lymph % (Auto) [place] % (Auto) Lymph # [place] # Seg Neutrophils % Seg Neuts % (Manual) Lymphocytes % (Manual) Monocytes % (Manual) Nucleated RBC % Seg Neutrophils # Man Lymphocytes # (Manual) PT INR APTT POC ABG pH POC ABG pCO2 POC ABG pO2 Sodium Carbon Dioxide BUN Creatinine Glucose POC Glucose 298 H 239 H 203 H Calcium AST ALT Alkaline Phosphatase Total Creatine Kinase CK-MB (CK-2) Total Protein Albumin 08/02/16 08/02/16 08/02/16 02:05 03:55 05:38 WBC RBC Hgb Hct MCV MCH MCHC RDW Plt Count Lymph % (Auto) [place] % (Auto) Lymph # [place] # Seg Neutrophils % Seg Neuts % (Manual) Lymphocytes % (Manual) Monocytes % (Manual) Nucleated RBC % Seg Neutrophils # Man Lymphocytes # (Manual) PT INR APTT POC ABG pH 7.460 H POC ABG pCO2 31.2 L POC ABG pO2 71 L Sodium Carbon Dioxide BUN Creatinine Glucose POC Glucose 248 H 253 H Calcium AST ALT Alkaline Phosphatase Total Creatine Kinase CK-MB (CK-2) Total Protein Albumin 08/02/16 08/02/16 08/02/16 09:11 09:44 09:44 WBC RBC 3.62 L Hgb 9.4 L Hct 29.1 L MCV 80 L MCH 26 L MCHC RDW 18.7 H Plt Count Lymph % (Auto) [place] % (Auto) 9.2 H Lymph # [place] # 1.0 H Seg Neutrophils % 72.0 H Seg Neuts % (Manual) Lymphocytes % (Manual) Monocytes % (Manual) Nucleated RBC % Seg Neutrophils # Man Lymphocytes # (Manual) PT INR APTT POC ABG pH POC ABG pCO2 POC ABG pO2 Sodium 135 L Carbon Dioxide 21 L BUN 42 H Creatinine Glucose 248 H POC Glucose 306 H Calcium 7.6 L AST ALT Alkaline Phosphatase Total Creatine Kinase CK-MB (CK-2) Total Protein Albumin 08/02/16 08/02/16 08/02/16 15:53 17:33 21:39 WBC RBC Hgb Hct MCV MCH MCHC RDW Plt Count Lymph % (Auto) [place] % (Auto) Lymph # [place] # Seg Neutrophils % Seg Neuts % (Manual) Lymphocytes % (Manual) Monocytes % (Manual) Nucleated RBC % Seg Neutrophils # Man Lymphocytes # (Manual) PT INR APTT POC ABG pH POC ABG pCO2 POC ABG pO2 Sodium Carbon Dioxide BUN Creatinine Glucose POC Glucose 205 H 250 H 282 H Calcium AST ALT Alkaline Phosphatase Total Creatine Kinase CK-MB (CK-2) Total Protein Albumin 08/03/16 08/03/16 08/03/16 02:28 05:47 07:05 WBC RBC 3.32 L Hgb 8.4 L Hct 26.5 L MCV 80 L MCH 25 L MCHC RDW 18.7 H Plt Count 112 L Lymph % (Auto) 12.5 L [place] % (Auto) 10.2 H Lymph # 1.0 L [place] # Seg Neutrophils % 75.9 H Seg Neuts % (Manual) Lymphocytes % (Manual) Monocytes % (Manual) Nucleated RBC % Seg Neutrophils # Man Lymphocytes # (Manual) PT INR APTT POC ABG pH POC ABG pCO2 POC ABG pO2 Sodium Carbon Dioxide BUN Creatinine Glucose POC Glucose 317 H 253 H Calcium AST ALT Alkaline Phosphatase Total Creatine Kinase CK-MB (CK-2) Total Protein Albumin 08/03/16 08/03/16 08/03/16 07:05 09:50 14:07 WBC RBC Hgb Hct MCV MCH MCHC RDW Plt Count Lymph % (Auto) [place] % (Auto) Lymph # [place] # Seg Neutrophils % Seg Neuts % (Manual) Lymphocytes % (Manual) Monocytes % (Manual) Nucleated RBC % Seg Neutrophils # Man Lymphocytes # (Manual) PT INR APTT POC ABG pH POC ABG pCO2 POC ABG pO2 Sodium 132 L Carbon Dioxide 20 L BUN 42 H Creatinine Glucose 243 H POC Glucose 332 H 345 H Calcium 6.8 L AST ALT Alkaline Phosphatase Total Creatine Kinase CK-MB (CK-2) Total Protein Albumin 08/03/16 08/03/16 08/04/16 17:38 21:36 02:18 WBC RBC Hgb Hct MCV MCH MCHC RDW Plt Count Lymph % (Auto) [place] % (Auto) Lymph # [place] # Seg Neutrophils % Seg Neuts % (Manual) Lymphocytes % (Manual) Monocytes % (Manual) Nucleated RBC % Seg Neutrophils # Man Lymphocytes # (Manual) PT INR APTT POC ABG pH POC ABG pCO2 POC ABG pO2 Sodium Carbon Dioxide BUN Creatinine Glucose POC Glucose 262 H 260 H 256 H Calcium AST ALT Alkaline Phosphatase Total Creatine Kinase CK-MB (CK-2) Total Protein Albumin 08/04/16 08/04/16 08/04/16 05:41 06:00 10:20 WBC RBC Hgb Hct MCV MCH MCHC RDW Plt Count Lymph % (Auto) [place] % (Auto) Lymph # [place] # Seg Neutrophils % Seg Neuts % (Manual) Lymphocytes % (Manual) Monocytes % (Manual) Nucleated RBC % Seg Neutrophils # Man Lymphocytes # (Manual) PT INR APTT POC ABG pH POC ABG pCO2 POC ABG pO2 Sodium Carbon Dioxide BUN 34 H Creatinine 0.7 L Glucose 237 H POC Glucose 265 H 266 H Calcium 7.9 L D AST ALT Alkaline Phosphatase Total Creatine Kinase CK-MB (CK-2) Total Protein Albumin 08/04/16 08/04/16 08/04/16 14:20 17:31 21:52 WBC RBC Hgb Hct MCV MCH MCHC RDW Plt Count Lymph % (Auto) [place] % (Auto) Lymph # [place] # Seg Neutrophils % Seg Neuts % (Manual) Lymphocytes % (Manual) Monocytes % (Manual) Nucleated RBC % Seg Neutrophils # Man Lymphocytes # (Manual) PT INR APTT POC ABG pH POC ABG pCO2 POC ABG pO2 Sodium Carbon Dioxide BUN Creatinine Glucose POC Glucose 302 H 337 H 340 H Calcium AST ALT Alkaline Phosphatase Total Creatine Kinase CK-MB (CK-2) Total Protein Albumin 08/05/16 08/05/16 08/05/16 01:43 05:00 05:00 WBC RBC Hgb 9.5 L Hct 30.1 L MCV 81 L MCH 26 L MCHC RDW 19.1 H Plt Count 112 L Lymph % (Auto) [place] % (Auto) Lymph # [place] # Seg Neutrophils % Seg Neuts % (Manual) Lymphocytes % (Manual) Monocytes % (Manual) Nucleated RBC % Seg Neutrophils # Man Lymphocytes # (Manual) PT INR APTT POC ABG pH POC ABG pCO2 POC ABG pO2 Sodium Carbon Dioxide BUN 27 H Creatinine 0.7 L Glucose 212 H POC Glucose 247 H Calcium 8.3 L AST 92 H ALT 81 H Alkaline Phosphatase 629 H Total Creatine Kinase CK-MB (CK-2) Total Protein 5.9 L Albumin 2.2 L 08/05/16 08/05/16 08/05/16 05:14 05:19 10:12 WBC RBC Hgb Hct MCV MCH MCHC RDW Plt Count Lymph % (Auto) [place] % (Auto) Lymph # [place] # Seg Neutrophils % Seg Neuts % (Manual) Lymphocytes % (Manual) Monocytes % (Manual) Nucleated RBC % Seg Neutrophils # Man Lymphocytes # (Manual) PT INR APTT POC ABG pH 7.469 H POC ABG pCO2 POC ABG pO2 109 H Sodium Carbon Dioxide BUN Creatinine Glucose POC Glucose 208 H 206 H Calcium AST ALT Alkaline Phosphatase Total Creatine Kinase CK-MB (CK-2) Total Protein Albumin 08/05/16 08/05/16 08/05/16 13:54 18:31 22:06 WBC RBC Hgb Hct MCV MCH MCHC RDW Plt Count Lymph % (Auto) [place] % (Auto) Lymph # [place] # Seg Neutrophils % Seg Neuts % (Manual) Lymphocytes % (Manual) Monocytes % (Manual) Nucleated RBC % Seg Neutrophils # Man Lymphocytes # (Manual) PT INR APTT POC ABG pH POC ABG pCO2 POC ABG pO2 Sodium Carbon Dioxide BUN Creatinine Glucose POC Glucose 226 H 229 H 245 H Calcium AST ALT Alkaline Phosphatase Total Creatine Kinase CK-MB (CK-2) Total Protein Albumin 08/06/16 08/06/16 08/06/16 02:03 05:31 05:42 WBC RBC Hgb Hct MCV MCH MCHC RDW Plt Count Lymph % (Auto) [place] % (Auto) Lymph # [place] # Seg Neutrophils % Seg Neuts % (Manual) Lymphocytes % (Manual) Monocytes % (Manual) Nucleated RBC % Seg Neutrophils # Man Lymphocytes # (Manual) PT INR APTT POC ABG pH POC ABG pCO2 POC ABG pO2 62 L Sodium Carbon Dioxide BUN Creatinine Glucose POC Glucose 237 H 205 H Calcium AST ALT Alkaline Phosphatase Total Creatine Kinase CK-MB (CK-2) Total Protein Albumin 08/06/16 08/06/16 08/06/16 09:36 11:30 14:23 WBC RBC Hgb Hct MCV MCH MCHC RDW Plt Count Lymph % (Auto) [place] % (Auto) Lymph # [place] # Seg Neutrophils % Seg Neuts % (Manual) Lymphocytes % (Manual) Monocytes % (Manual) Nucleated RBC % Seg Neutrophils # Man Lymphocytes # (Manual) PT 18.9 H INR 1.59 H APTT 39.7 H POC ABG pH POC ABG pCO2 POC ABG pO2 Sodium Carbon Dioxide BUN Creatinine Glucose POC Glucose 279 H 264 H Calcium AST ALT Alkaline Phosphatase Total Creatine Kinase CK-MB (CK-2) Total Protein Albumin 08/06/16 08/07/16 08/07/16 18:07 03:01 05:18 WBC RBC Hgb Hct MCV MCH MCHC RDW Plt Count Lymph % (Auto) [place] % (Auto) Lymph # [place] # Seg Neutrophils % Seg Neuts % (Manual) Lymphocytes % (Manual) Monocytes % (Manual) Nucleated RBC % Seg Neutrophils # Man Lymphocytes # (Manual) PT INR APTT POC ABG pH 7.459 H POC ABG pCO2 POC ABG pO2 Sodium Carbon Dioxide BUN Creatinine Glucose POC Glucose 176 H 172 H Calcium AST ALT Alkaline Phosphatase Total Creatine Kinase CK-MB (CK-2) Total Protein Albumin 08/07/16 08/07/16 08/07/16 05:32 07:30 07:30 WBC RBC 3.39 L Hgb 8.6 L Hct 27.2 L MCV 80 L MCH 25 L MCHC RDW 19.1 H Plt Count 136 L Lymph % (Auto) [place] % (Auto) Lymph # [place] # Seg Neutrophils % Seg Neuts % (Manual) 84.0 H Lymphocytes % (Manual) 4.0 L Monocytes % (Manual) 8.0 H Nucleated RBC % Seg Neutrophils # Man 8.2 H Lymphocytes # (Manual) 0.4 L PT 17.2 H INR 1.41 H APTT POC ABG pH POC ABG pCO2 POC ABG pO2 Sodium Carbon Dioxide BUN Creatinine Glucose POC Glucose 204 H Calcium AST ALT Alkaline Phosphatase Total Creatine Kinase CK-MB (CK-2) Total Protein Albumin 08/07/16 08/07/16 08/07/16 07:30 10:03 14:35 WBC RBC Hgb Hct MCV MCH MCHC RDW Plt Count Lymph % (Auto) [place] % (Auto) Lymph # [place] # Seg Neutrophils % Seg Neuts % (Manual) Lymphocytes % (Manual) Monocytes % (Manual) Nucleated RBC % Seg Neutrophils # Man Lymphocytes # (Manual) PT INR APTT POC ABG pH POC ABG pCO2 POC ABG pO2 Sodium Carbon Dioxide BUN 27 H Creatinine 0.7 L Glucose 201 H POC Glucose 233 H 255 H Calcium 7.9 L AST 73 H ALT 74 H Alkaline Phosphatase 595 H Total Creatine Kinase CK-MB (CK-2) Total Protein 5.1 L Albumin 1.8 L 08/07/16 08/07/16 08/08/16 16:09 22:01 01:27 WBC RBC Hgb Hct MCV MCH MCHC RDW Plt Count Lymph % (Auto) [place] % (Auto) Lymph # [place] # Seg Neutrophils % Seg Neuts % (Manual) Lymphocytes % (Manual) Monocytes % (Manual) Nucleated RBC % Seg Neutrophils # Man Lymphocytes # (Manual) PT INR APTT POC ABG pH POC ABG pCO2 POC ABG pO2 Sodium Carbon Dioxide BUN Creatinine Glucose POC Glucose 259 H 255 H 252 H Calcium AST ALT Alkaline Phosphatase Total Creatine Kinase CK-MB (CK-2) Total Protein Albumin 08/08/16 08/08/16 08/08/16 05:13 06:23 07:40 WBC RBC 3.36 L Hgb 8.5 L Hct 27.1 L MCV 81 L MCH 25 L MCHC 31 L RDW 18.8 H Plt Count 129 L Lymph % (Auto) [place] % (Auto) Lymph # [place] # Seg Neutrophils % Seg Neuts % (Manual) Lymphocytes % (Manual) Monocytes % (Manual) Nucleated RBC % 2.0 H Seg Neutrophils # Man Lymphocytes # (Manual) PT INR APTT POC ABG pH 7.460 H POC ABG pCO2 POC ABG pO2 74 L Sodium Carbon Dioxide BUN Creatinine Glucose POC Glucose 264 H Calcium AST ALT Alkaline Phosphatase Total Creatine Kinase CK-MB (CK-2) Total Protein Albumin 08/08/16 08/08/16 08/08/16 07:40 10:01 15:00 WBC RBC Hgb Hct MCV MCH MCHC RDW Plt Count Lymph % (Auto) [place] % (Auto) Lymph # [place] # Seg Neutrophils % Seg Neuts % (Manual) Lymphocytes % (Manual) Monocytes % (Manual) Nucleated RBC % Seg Neutrophils # Man Lymphocytes # (Manual) PT INR APTT POC ABG pH POC ABG pCO2 POC ABG pO2 Sodium Carbon Dioxide BUN 26 H Creatinine 0.7 L Glucose 233 H POC Glucose 271 H 275 H Calcium 7.6 L AST 77 H ALT 71 H Alkaline Phosphatase 658 H Total Creatine Kinase CK-MB (CK-2) Total Protein 5.0 L Albumin 1.6 L 08/08/16 08/08/16 08/08/16 17:28 21:32 23:53 WBC RBC Hgb Hct MCV MCH MCHC RDW Plt Count Lymph % (Auto) [place] % (Auto) Lymph # [place] # Seg Neutrophils % Seg Neuts % (Manual) Lymphocytes % (Manual) Monocytes % (Manual) Nucleated RBC % Seg Neutrophils # Man Lymphocytes # (Manual) PT INR APTT POC ABG pH POC ABG pCO2 POC ABG pO2 Sodium Carbon Dioxide BUN Creatinine Glucose POC Glucose 275 H 252 H 246 H Calcium AST ALT Alkaline Phosphatase Total Creatine Kinase CK-MB (CK-2) Total Protein Albumin 08/09/16 08/09/16 08/09/16 03:32 05:00 05:00 WBC RBC 3.34 L Hgb 8.3 L Hct 26.7 L MCV 80 L MCH 25 L MCHC 31 L RDW 18.5 H Plt Count Lymph % (Auto) [place] % (Auto) Lymph # [place] # Seg Neutrophils % Seg Neuts % (Manual) Lymphocytes % (Manual) Monocytes % (Manual) Nucleated RBC % Seg Neutrophils # Man Lymphocytes # (Manual) PT INR APTT POC ABG pH POC ABG pCO2 POC ABG pO2 Sodium Carbon Dioxide BUN 25 H Creatinine 0.5 L Glucose 230 H POC Glucose 260 H Calcium 7.6 L AST ALT Alkaline Phosphatase Total Creatine Kinase CK-MB (CK-2) Total Protein Albumin 08/09/16 08/09/16 08/09/16 06:00 10:07 14:07 WBC RBC Hgb Hct MCV MCH MCHC RDW Plt Count Lymph % (Auto) [place] % (Auto) Lymph # [place] # Seg Neutrophils % Seg Neuts % (Manual) Lymphocytes % (Manual) Monocytes % (Manual) Nucleated RBC % Seg Neutrophils # Man Lymphocytes # (Manual) PT INR APTT POC ABG pH 7.493 H POC ABG pCO2 POC ABG pO2 Sodium Carbon Dioxide BUN Creatinine Glucose POC Glucose 216 H 220 H Calcium AST ALT Alkaline Phosphatase Total Creatine Kinase CK-MB (CK-2) Total Protein Albumin 08/09/16 08/09/16 08/10/16 16:55 21:07 02:09 WBC RBC Hgb Hct MCV MCH MCHC RDW Plt Count Lymph % (Auto) [place] % (Auto) Lymph # [place] # Seg Neutrophils % Seg Neuts % (Manual) Lymphocytes % (Manual) Monocytes % (Manual) Nucleated RBC % Seg Neutrophils # Man Lymphocytes # (Manual) PT INR APTT POC ABG pH POC ABG pCO2 POC ABG pO2 Sodium Carbon Dioxide BUN Creatinine Glucose POC Glucose 242 H 235 H 228 H Calcium AST ALT Alkaline Phosphatase Total Creatine Kinase CK-MB (CK-2) Total Protein Albumin 08/10/16 08/10/16 08/10/16 05:31 09:06 13:45 WBC RBC Hgb Hct MCV MCH MCHC RDW Plt Count Lymph % (Auto) [place] % (Auto) Lymph # [place] # Seg Neutrophils % Seg Neuts % (Manual) Lymphocytes % (Manual) Monocytes % (Manual) Nucleated RBC % Seg Neutrophils # Man Lymphocytes # (Manual) PT INR APTT POC ABG pH POC ABG pCO2 POC ABG pO2 Sodium Carbon Dioxide BUN Creatinine Glucose POC Glucose 201 H 229 H 274 H Calcium AST ALT Alkaline Phosphatase Total Creatine Kinase CK-MB (CK-2) Total Protein Albumin 08/10/16 08/10/16 08/10/16 17:53 21:43 Unknown WBC RBC 3.42 L Hgb 8.6 L Hct 27.5 L MCV 80 L MCH 25 L MCHC RDW 19.1 H Plt Count Lymph % (Auto) [place] % (Auto) Lymph # [place] # Seg Neutrophils % Seg Neuts % (Manual) Lymphocytes % (Manual) Monocytes % (Manual) Nucleated RBC % Seg Neutrophils # Man Lymphocytes # (Manual) PT INR APTT POC ABG pH POC ABG pCO2 POC ABG pO2 Sodium Carbon Dioxide BUN Creatinine Glucose POC Glucose 284 H 328 H Calcium AST ALT Alkaline Phosphatase Total Creatine Kinase CK-MB (CK-2) Total Protein Albumin 08/10/16 08/11/16 08/11/16 Unknown 01:37 05:39 WBC RBC Hgb Hct MCV MCH MCHC RDW Plt Count Lymph % (Auto) [place] % (Auto) Lymph # [place] # Seg Neutrophils % Seg Neuts % (Manual) Lymphocytes % (Manual) Monocytes % (Manual) Nucleated RBC % Seg Neutrophils # Man Lymphocytes # (Manual) PT INR APTT POC ABG pH POC ABG pCO2 POC ABG pO2 Sodium Carbon Dioxide BUN 27 H Creatinine 0.6 L Glucose 211 H POC Glucose 340 H 323 H Calcium 7.8 L AST ALT Alkaline Phosphatase Total Creatine Kinase CK-MB (CK-2) Total Protein Albumin 08/11/16 09:58 WBC RBC Hgb Hct MCV MCH MCHC RDW Plt Count Lymph % (Auto) [place] % (Auto) Lymph # [place] # Seg Neutrophils % Seg Neuts % (Manual) Lymphocytes % (Manual) Monocytes % (Manual) Nucleated RBC % Seg Neutrophils # Man Lymphocytes # (Manual) PT INR APTT POC ABG pH POC ABG pCO2 POC ABG pO2 Sodium Carbon Dioxide BUN Creatinine Glucose POC Glucose 295 H Calcium AST ALT Alkaline Phosphatase Total Creatine Kinase CK-MB (CK-2) Total Protein Albumin
--- NOTE | 2016-08-12 08:36 | Progress Note ---
Assessment and Plan Assessment and plan: Patient is 76 year-old man with a history of hypertension, diabetes, hyperlipidemia, BPH, was brought to the emergency room because son found him on the floor unresponsive. Patient was intubated in the emergency room. MRI of brain showed b/l acute CVA. Tracheal aspirate growing Pseudomonas Aeruginosa and Escherichia Coli. Failing weaning trial from vent, may need trach. 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 Discontinued Meropenem and Acyclovir. I discussed with ID Physician Fever due to Sepsis Prognosis guarded History Interval history: Still intubated. Still unable to wean Fever of 100.1 overnight Opens eyes Hospitalist Physical - Physical exam Narrative exam: Gen Appearance: intubated, on vent HEENT: normocephalic, atraumatic Neck: no JVD Lungs: clear to auscultation bilaterally, no crackles or wheezes Heart: S1 and S2 regular, no murmurs or gallop Abdomen: Soft, non-tender, non-distended, normal bowel sounds Extremity:No edema, clubbing or cyanosis Neuro : Intubated, sedated - Constitutional Vitals: Temp Pulse Resp BP Pulse Ox 100.1 F H 87 21 134/65 100 08/12/16 03:28 08/12/16 07:05 08/12/16 07:00 08/12/16 07:05 08/12/16 07:05 General appearance: Present: well-nourished, other (intubated, FiO2 30%) Results - Labs CBC & Chem 7: 08/10/16 Unknown 08/10/16 Unknown Labs: Laboratory Last Values WBC 8.9 K/mm3 (4.5-11.0) 08/10/16 Unknown RBC 3.42 M/mm3 (3.65-5.03) L 08/10/16 Unknown Hgb 8.6 gm/dl (11.8-15.2) L 08/10/16 Unknown Hct 27.5 % (35.5-45.6) L 08/10/16 Unknown MCV 80 fl (84-94) L 08/10/16 Unknown MCH 25 pg (28-32) L 08/10/16 Unknown MCHC 32 % (32-34) 08/10/16 Unknown RDW 19.1 % (13.2-15.2) H 08/10/16 Unknown Plt Count 168 K/mm3 (140-440) 08/10/16 Unknown Lymph % (Auto) Adoption Services Manager 08/08/16 07:40 [place] % (Auto) Adoption Services Manager 08/08/16 07:40 Eos % (Auto) Adoption Services Manager 08/08/16 07:40 Baso % (Auto) Adoption Services Manager 08/08/16 07:40 Lymph # Adoption Services Manager 08/08/16 07:40 [place] # Adoption Services Manager 08/08/16 07:40 Eos # Adoption Services Manager 08/08/16 07:40 Baso # Adoption Services Manager 08/08/16 07:40 Add Manual Diff Complete 08/08/16 07:40 Total Counted 100 08/08/16 07:40 Seg Neutrophils % Adoption Services Manager 08/08/16 07:40 Seg Neuts % (Manual) 68.0 % (40.0-70.0) 08/08/16 07:40 Band Neutrophils % 2.0 % 08/08/16 07:40 Lymphocytes % (Manual) 25.0 % (13.4-35.0) 08/08/16 07:40 Reactive Lymphs % (Man) 0 % 08/08/16 07:40 Monocytes % (Manual) 3.0 % (0.0-7.3) 08/08/16 07:40 Eosinophils % (Manual) 2.0 % (0.0-4.3) 08/08/16 07:40 Basophils % (Manual) 0 % (0.0-1.8) 08/08/16 07:40 Metamyelocytes % 0 % 08/08/16 07:40 Myelocytes % 0 % 08/08/16 07:40 Promyelocytes % 0 % 08/08/16 07:40 Blast Cells % 0 % 08/08/16 07:40 Nucleated RBC % 2.0 % (0.0-0.9) H 08/08/16 07:40 Seg Neutrophils # Adoption Services Manager 08/08/16 07:40 Seg Neutrophils # Man 5.9 K/mm3 (1.8-7.7) 08/08/16 07:40 Band Neutrophils # 0.2 K/mm3 08/08/16 07:40 Lymphocytes # (Manual) 2.2 K/mm3 (1.2-5.4) 08/08/16 07:40 Abs React Lymphs (Man) 0.0 K/mm3 08/08/16 07:40 Monocytes # (Manual) 0.3 K/mm3 (0.0-0.8) 08/08/16 07:40 Eosinophils # (Manual) 0.2 K/mm3 (0.0-0.4) 08/08/16 07:40 Basophils # (Manual) 0.0 K/mm3 (0.0-0.1) 08/08/16 07:40 Metamyelocytes # 0.0 K/mm3 08/08/16 07:40 Myelocytes # 0.0 K/mm3 08/08/16 07:40 Promyelocytes # 0.0 K/mm3 08/08/16 07:40 Blast Cells # 0.0 K/mm3 08/08/16 07:40 WBC Morphology Not Reportable 08/08/16 07:40 Hypersegmented Neuts Not Reportable 08/08/16 07:40 Hyposegmented Neuts Not Reportable 08/08/16 07:40 Hypogranular Neuts Not Reportable 08/08/16 07:40 Smudge Cells Not Reportable 08/08/16 07:40 Toxic Granulation Not Reportable 08/08/16 07:40 Toxic Vacuolation Not Reportable 08/08/16 07:40 Dohle Bodies Not Reportable 08/08/16 07:40 Pelger-Huet Anomaly Not Reportable 08/08/16 07:40 Leta Rods Not Reportable 08/08/16 07:40 Platelet Estimate Consistent w auto 08/08/16 07:40 Clumped Platelets Not Reportable 08/08/16 07:40 Plt Clumps, EDTA Not Reportable 08/08/16 07:40 Large Platelets Not Reportable 08/08/16 07:40 Giant Platelets Not Reportable 08/08/16 07:40 Platelet Satelliting Not Reportable 08/08/16 07:40 Plt Morphology Comment Not Reportable 08/08/16 07:40 RBC Morphology Not Reportable 08/08/16 07:40 Dimorphic RBCs Not Reportable 08/08/16 07:40 Polychromasia Few 08/08/16 07:40 Hypochromasia Few 08/08/16 07:40 Poikilocytosis Not Reportable 08/08/16 07:40 Anisocytosis 1+ 08/08/16 07:40 Microcytosis Not Reportable 08/08/16 07:40 Macrocytosis Few 08/08/16 07:40 Spherocytes Not Reportable 08/08/16 07:40 Pappenheimer Bodies Not Reportable 08/08/16 07:40 Sickle Cells Not Reportable 08/08/16 07:40 Target Cells Few 08/08/16 07:40 Tear Drop Cells Few 08/08/16 07:40 Ovalocytes Not Reportable 08/08/16 07:40 Helmet Cells Not Reportable 08/08/16 07:40 Das-Strawn Bodies Not Reportable 08/08/16 07:40 [place] Rings Not Reportable 08/08/16 07:40 [place] Cells Not Reportable 08/08/16 07:40 Bite Cells Not Reportable 08/08/16 07:40 Crenated Cell Not Reportable 08/08/16 07:40 Elliptocytes Not Reportable 08/08/16 07:40 Acanthocytes (Spur) Not Reportable 08/08/16 07:40 Rouleaux Not Reportable 08/08/16 07:40 Hemoglobin C Crystals Not Reportable 08/08/16 07:40 Schistocytes Not Reportable 08/08/16 07:40 Malaria parasites Not Reportable 08/08/16 07:40 Reece Bodies Not Reportable 08/08/16 07:40 Hem Pathologist Commnt No 08/08/16 07:40 PT 17.2 Sec. (12.2-14.9) H 08/07/16 07:30 INR 1.41 (0.87-1.13) H 08/07/16 07:30 APTT 36.5 Sec. (24.2-36.6) 08/07/16 07:30 POC ABG pH 7.493 (7.35-7.45) H 08/09/16 06:00 POC ABG pCO2 38.8 (35-45) 08/09/16 06:00 POC ABG pO2 83 (80-105) 08/09/16 06:00 POC ABG HCO3 29.8 08/09/16 06:00 POC ABG Total CO2 31 08/09/16 06:00 POC ABG O2 Sat 97 08/09/16 06:00 POC ABG Base Excess 6 08/09/16 06:00 VBG pH 7.447 (7.320-7.420) H 07/31/16 00:13 FiO2 30 % 08/09/16 06:00 Sodium 138 mmol/L (137-145) 08/10/16 Unknown Potassium 4.1 mmol/L (3.6-5.0) 08/10/16 Unknown Chloride 101.1 mmol/L (98-107) 08/10/16 Unknown Carbon Dioxide 30 mmol/L (22-30) 08/10/16 Unknown Anion Gap 11 mmol/L 08/10/16 Unknown BUN 27 mg/dL (9-20) H 08/10/16 Unknown Creatinine 0.6 mg/dL (0.8-1.5) L 08/10/16 Unknown Estimated GFR > 60 ml/min 08/10/16 Unknown BUN/Creatinine Ratio 45.00 % 08/10/16 Unknown Glucose 211 mg/dL (75-100) H 08/10/16 Unknown POC Glucose 156 (70-105) H 08/12/16 05:15 Lactic Acid 1.00 mmol/L (0.7-2.0) 07/31/16 00:13 Calcium 7.8 mg/dL (8.4-10.2) L 08/10/16 Unknown Total Bilirubin 0.20 mg/dL (0.1-1.2) 08/08/16 07:40 AST 77 units/L (5-40) H 08/08/16 07:40 ALT 71 units/L (7-56) H 08/08/16 07:40 Alkaline Phosphatase 658 units/L (35-129) H 08/08/16 07:40 Ammonia 49.0 umol/L (25-60) 07/31/16 00:13 Total Creatine Kinase 865 units/L (55-170) H 07/31/16 08:39 CK-MB (CK-2) 5.9 ng/mL (0.0-4.0) H 07/31/16 08:39 CK-MB (CK-2) Rel Index 0.6 (0-4) 07/31/16 08:39 Troponin T 0.011 ng/mL (0.00-0.029) 07/31/16 08:39 Total Protein 5.0 g/dL (6.3-8.2) L 08/08/16 07:40 Albumin 1.6 g/dL (3.9-5) L 08/08/16 07:40 Albumin/Globulin Ratio 0.5 % 08/08/16 07:40 TSH 1.420 mlU/mL (0.270-4.200) 08/04/16 09:50 CSF Appearance Clear 08/04/16 11:54 CSF Color Colorless 08/04/16 11:54 CSF WBC 2 /mm3 (1-10) 08/04/16 11:54 CSF RBC 30 /mm3 (0-0) 08/04/16 11:54 CSF Seg Neutrophils 0 % (0-6) 08/04/16 11:54 CSF Lymphocytes % 66.7 % (40-80) 08/04/16 11:54 CSF Reactive Lymphs 0 % 08/04/16 11:54 CSF Monocytes % 33.3 % (15-45) 08/04/16 11:54 CSF Eosinophils % 0 % 08/04/16 11:54 CSF Basophils 0 % 08/04/16 11:54 CSF Pathologist Review C 08/04/16 11:54 CSF Glucose 90 mg/dL 08/04/16 11:54 CSF Total Protein 93 mg/dL 08/04/16 11:54 CSF VDRL Nonreactive (Nonreactive) 08/04/16 11:54 Salicylates < 0.3 mg/dL (2.8-20.0) L 07/31/16 00:02 Acetaminophen < 15.0 ug/mL (10.0-30.0) 07/31/16 00:02 Miscellaneous Test Flexitest 1 08/04/16 11:54 Blood Type O POSITIVE 07/30/16 23:40 MARK Antibody Screen Negative 07/30/16 23:40
[2016-08-12] MEDS: TOBRAMYCIN INHALATION (NICU) (40 MG/ML) IH SCH ×3 (10:00→19:44)
[2016-08-12] MEDS: LEVEMIR SUB-Q SCH (10:14)
[2016-08-12] MEDS: ASPIRIN PO SCH (10:14)
[2016-08-12] MEDS: PEPCID PO SCH ×2 (10:14→23:16)
--- NOTE | 2016-08-12 12:37 | Progress Note ---
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 1. Not safely weanable without trach. Called son, no answer, will attempt again. Per CM he is the decision maker. patient will likely need trach and peg. (Jose Elias) [phone] 2. Continue Daily PSV trials and AC rest at night 3. Neuro back on Sunday, will ask if any further recs or imaging needed. 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 Infectious etiologies have been ruled out. 4. Blood sugars better with increased levemir. 5. Will continue to follow along with you CCT 31 minutes. Subjective Date of service: 08/12/16 Principal diagnosis: acute respiratory failure Interval history: No acute events. Remains unresponsive on vent. Tolerating PSV, now down to 8/ 5. No family at bedside. Called phone number given to me by CM this am. No answer. Blood sugars better with increase in Levemir. Low grade temp of 100.1 today. Objective Vital Signs - 12hr 08/12/16 08/12/16 08/12/16 01:00 01:15 02:00 Temperature Pulse Rate 87 84 84 Pulse Rate [ Anterior Bilateral Throughout] Pulse Rate [ From Monitor] Pulse Rate [ Right Dorsalis Pedis] Respiratory 15 16 Rate Respiratory Rate [Anterior Bilateral Throughout] Blood Pressure 126/65 126/65 122/56 O2 Sat by Pulse 98 100 98 Oximetry 08/12/16 08/12/16 08/12/16 03:00 03:28 04:00 Temperature 100.1 F H Pulse Rate 89 85 Pulse Rate [ Anterior Bilateral Throughout] Pulse Rate [ From Monitor] Pulse Rate [ 88 Right Dorsalis Pedis] Respiratory 15 21 Rate Respiratory Rate [Anterior Bilateral Throughout] Blood Pressure 124/66 127/58 O2 Sat by Pulse 97 97 Oximetry 08/12/16 08/12/16 08/12/16 04:47 05:00 06:00 Temperature Pulse Rate 82 97 H 82 Pulse Rate [ Anterior Bilateral Throughout] Pulse Rate [ From Monitor] Pulse Rate [ Right Dorsalis Pedis] Respiratory 20 20 Rate Respiratory Rate [Anterior Bilateral Throughout] Blood Pressure 127/58 128/47 128/58 O2 Sat by Pulse 99 99 97 Oximetry 07/09/2108/12/16 08/12/16 07:00 07:05 08:00 Temperature 99.6 F Pulse Rate 92 H 87 87 Pulse Rate [ Anterior Bilateral Throughout] Pulse Rate [ 88 From Monitor] Pulse Rate [ Right Dorsalis Pedis] Respiratory 21 16 Rate Respiratory Rate [Anterior Bilateral Throughout] Blood Pressure 134/65 134/65 118/50 O2 Sat by Pulse 99 100 98 Oximetry 08/12/16 08/12/16 08/12/16 09:00 10:00 10:11 Temperature Pulse Rate 82 78 Pulse Rate [ 73 Anterior Bilateral Throughout] Pulse Rate [ From Monitor] Pulse Rate [ Right Dorsalis Pedis] Respiratory 18 16 Rate Respiratory 18 Rate [Anterior Bilateral Throughout] Blood Pressure 115/56 124/58 O2 Sat by Pulse 96 96 Oximetry 08/12/16 08/12/16 08/12/16 11:00 11:55 12:00 Temperature Pulse Rate 75 91 H 87 Pulse Rate [ Anterior Bilateral Throughout] Pulse Rate [ From Monitor] Pulse Rate [ Right Dorsalis Pedis] Respiratory 16 16 Rate Respiratory Rate [Anterior Bilateral Throughout] Blood Pressure 110/58 110/58 130/60 O2 Sat by Pulse 95 99 97 Oximetry Constitutional: no acute distress, other (intubated, ) Eyes: other (pupils are equal, very slowly reactive) ENT: other (orally intubated) Neck: supple, no JVD Ascultation: Bilateral: clear, diminished breath sounds Gastrointestinal: normoactive bowel sounds, non-distended Integumentary: normal Extremities: no cyanosis, no edema Neurologic: other (no changes) CBC and BMP: 08/10/16 Unknown 08/10/16 Unknown ABG, PT/INR, D-dimer: ABG POC ABG pH 7.493 (7.35-7.45) H 08/09/16 06:00 POC ABG pCO2 38.8 (35-45) 08/09/16 06:00 POC ABG pO2 83 (80-105) 08/09/16 06:00 POC ABG HCO3 29.8 08/09/16 06:00 POC ABG Total CO2 31 08/09/16 06:00 POC ABG O2 Sat 97 08/09/16 06:00 PT/INR, D-dimer PT 17.2 Sec. (12.2-14.9) H 08/07/16 07:30 INR 1.41 (0.87-1.13) H 08/07/16 07:30 Abnormal lab findings: Abnormal Labs 07/31/16 07/31/16 07/31/16 08:39 10:07 12:07 WBC RBC Hgb Hct MCV MCH MCHC RDW Plt Count Lymph % (Auto) [place] % (Auto) Lymph # [place] # Seg Neutrophils % Seg Neuts % (Manual) Lymphocytes % (Manual) Monocytes % (Manual) Nucleated RBC % Seg Neutrophils # Man Lymphocytes # (Manual) PT INR APTT POC ABG pH POC ABG pCO2 POC ABG pO2 Sodium Carbon Dioxide BUN Creatinine Glucose POC Glucose 205 H 188 H Calcium AST ALT Alkaline Phosphatase Total Creatine Kinase 865 H CK-MB (CK-2) 5.9 H Total Protein Albumin 07/31/16 07/31/16 07/31/16 16:19 19:58 23:53 WBC RBC Hgb Hct MCV MCH MCHC RDW Plt Count Lymph % (Auto) [place] % (Auto) Lymph # [place] # Seg Neutrophils % Seg Neuts % (Manual) Lymphocytes % (Manual) Monocytes % (Manual) Nucleated RBC % Seg Neutrophils # Man Lymphocytes # (Manual) PT INR APTT POC ABG pH POC ABG pCO2 POC ABG pO2 Sodium Carbon Dioxide BUN Creatinine Glucose POC Glucose 195 H 147 H 160 H Calcium AST ALT Alkaline Phosphatase Total Creatine Kinase CK-MB (CK-2) Total Protein Albumin 08/01/16 08/01/16 08/01/16 04:18 04:42 07:45 WBC 14.8 H RBC Hgb 10.7 L Hct 34.9 L MCV 82 L MCH 25 L MCHC 31 L RDW 19.1 H Plt Count Lymph % (Auto) [place] % (Auto) Lymph # [place] # Seg Neutrophils % Seg Neuts % (Manual) 80.0 H Lymphocytes % (Manual) 12.0 L Monocytes % (Manual) Nucleated RBC % Seg Neutrophils # Man 11.8 H Lymphocytes # (Manual) PT INR APTT POC ABG pH POC ABG pCO2 33.4 L POC ABG pO2 66 L Sodium Carbon Dioxide BUN Creatinine Glucose POC Glucose 225 H Calcium AST ALT Alkaline Phosphatase Total Creatine Kinase CK-MB (CK-2) Total Protein Albumin 08/01/16 08/01/16 08/01/16 07:45 10:09 10:59 WBC RBC Hgb Hct MCV MCH MCHC RDW Plt Count Lymph % (Auto) [place] % (Auto) Lymph # [place] # Seg Neutrophils % Seg Neuts % (Manual) Lymphocytes % (Manual) Monocytes % (Manual) Nucleated RBC % Seg Neutrophils # Man Lymphocytes # (Manual) PT INR APTT POC ABG pH POC ABG pCO2 POC ABG pO2 Sodium Carbon Dioxide BUN 29 H Creatinine Glucose 233 H POC Glucose 266 H 318 H Calcium 7.6 L AST ALT Alkaline Phosphatase Total Creatine Kinase CK-MB (CK-2) Total Protein Albumin 08/01/16 08/01/16 08/01/16 14:24 17:56 21:21 WBC RBC Hgb Hct MCV MCH MCHC RDW Plt Count Lymph % (Auto) [place] % (Auto) Lymph # [place] # Seg Neutrophils % Seg Neuts % (Manual) Lymphocytes % (Manual) Monocytes % (Manual) Nucleated RBC % Seg Neutrophils # Man Lymphocytes # (Manual) PT INR APTT POC ABG pH POC ABG pCO2 POC ABG pO2 Sodium Carbon Dioxide BUN Creatinine Glucose POC Glucose 298 H 239 H 203 H Calcium AST ALT Alkaline Phosphatase Total Creatine Kinase CK-MB (CK-2) Total Protein Albumin 08/02/16 08/02/16 08/02/16 02:05 03:55 05:38 WBC RBC Hgb Hct MCV MCH MCHC RDW Plt Count Lymph % (Auto) [place] % (Auto) Lymph # [place] # Seg Neutrophils % Seg Neuts % (Manual) Lymphocytes % (Manual) Monocytes % (Manual) Nucleated RBC % Seg Neutrophils # Man Lymphocytes # (Manual) PT INR APTT POC ABG pH 7.460 H POC ABG pCO2 31.2 L POC ABG pO2 71 L Sodium Carbon Dioxide BUN Creatinine Glucose POC Glucose 248 H 253 H Calcium AST ALT Alkaline Phosphatase Total Creatine Kinase CK-MB (CK-2) Total Protein Albumin 08/02/16 08/02/16 08/02/16 09:11 09:44 09:44 WBC RBC 3.62 L Hgb 9.4 L Hct 29.1 L MCV 80 L MCH 26 L MCHC RDW 18.7 H Plt Count Lymph % (Auto) [place] % (Auto) 9.2 H Lymph # [place] # 1.0 H Seg Neutrophils % 72.0 H Seg Neuts % (Manual) Lymphocytes % (Manual) Monocytes % (Manual) Nucleated RBC % Seg Neutrophils # Man Lymphocytes # (Manual) PT INR APTT POC ABG pH POC ABG pCO2 POC ABG pO2 Sodium 135 L Carbon Dioxide 21 L BUN 42 H Creatinine Glucose 248 H POC Glucose 306 H Calcium 7.6 L AST ALT Alkaline Phosphatase Total Creatine Kinase CK-MB (CK-2) Total Protein Albumin 08/02/16 08/02/16 08/02/16 15:53 17:33 21:39 WBC RBC Hgb Hct MCV MCH MCHC RDW Plt Count Lymph % (Auto) [place] % (Auto) Lymph # [place] # Seg Neutrophils % Seg Neuts % (Manual) Lymphocytes % (Manual) Monocytes % (Manual) Nucleated RBC % Seg Neutrophils # Man Lymphocytes # (Manual) PT INR APTT POC ABG pH POC ABG pCO2 POC ABG pO2 Sodium Carbon Dioxide BUN Creatinine Glucose POC Glucose 205 H 250 H 282 H Calcium AST ALT Alkaline Phosphatase Total Creatine Kinase CK-MB (CK-2) Total Protein Albumin 08/03/16 08/03/16 08/03/16 02:28 05:47 07:05 WBC RBC 3.32 L Hgb 8.4 L Hct 26.5 L MCV 80 L MCH 25 L MCHC RDW 18.7 H Plt Count 112 L Lymph % (Auto) 12.5 L [place] % (Auto) 10.2 H Lymph # 1.0 L [place] # Seg Neutrophils % 75.9 H Seg Neuts % (Manual) Lymphocytes % (Manual) Monocytes % (Manual) Nucleated RBC % Seg Neutrophils # Man Lymphocytes # (Manual) PT INR APTT POC ABG pH POC ABG pCO2 POC ABG pO2 Sodium Carbon Dioxide BUN Creatinine Glucose POC Glucose 317 H 253 H Calcium AST ALT Alkaline Phosphatase Total Creatine Kinase CK-MB (CK-2) Total Protein Albumin 08/03/16 08/03/16 08/03/16 07:05 09:50 14:07 WBC RBC Hgb Hct MCV MCH MCHC RDW Plt Count Lymph % (Auto) [place] % (Auto) Lymph # [place] # Seg Neutrophils % Seg Neuts % (Manual) Lymphocytes % (Manual) Monocytes % (Manual) Nucleated RBC % Seg Neutrophils # Man Lymphocytes # (Manual) PT INR APTT POC ABG pH POC ABG pCO2 POC ABG pO2 Sodium 132 L Carbon Dioxide 20 L BUN 42 H Creatinine Glucose 243 H POC Glucose 332 H 345 H Calcium 6.8 L AST ALT Alkaline Phosphatase Total Creatine Kinase CK-MB (CK-2) Total Protein Albumin 08/03/16 08/03/16 08/04/16 17:38 21:36 02:18 WBC RBC Hgb Hct MCV MCH MCHC RDW Plt Count Lymph % (Auto) [place] % (Auto) Lymph # [place] # Seg Neutrophils % Seg Neuts % (Manual) Lymphocytes % (Manual) Monocytes % (Manual) Nucleated RBC % Seg Neutrophils # Man Lymphocytes # (Manual) PT INR APTT POC ABG pH POC ABG pCO2 POC ABG pO2 Sodium Carbon Dioxide BUN Creatinine Glucose POC Glucose 262 H 260 H 256 H Calcium AST ALT Alkaline Phosphatase Total Creatine Kinase CK-MB (CK-2) Total Protein Albumin 08/04/16 08/04/16 08/04/16 05:41 06:00 10:20 WBC RBC Hgb Hct MCV MCH MCHC RDW Plt Count Lymph % (Auto) [place] % (Auto) Lymph # [place] # Seg Neutrophils % Seg Neuts % (Manual) Lymphocytes % (Manual) Monocytes % (Manual) Nucleated RBC % Seg Neutrophils # Man Lymphocytes # (Manual) PT INR APTT POC ABG pH POC ABG pCO2 POC ABG pO2 Sodium Carbon Dioxide BUN 34 H Creatinine 0.7 L Glucose 237 H POC Glucose 265 H 266 H Calcium 7.9 L D AST ALT Alkaline Phosphatase Total Creatine Kinase CK-MB (CK-2) Total Protein Albumin 08/04/16 08/04/16 08/04/16 14:20 17:31 21:52 WBC RBC Hgb Hct MCV MCH MCHC RDW Plt Count Lymph % (Auto) [place] % (Auto) Lymph # [place] # Seg Neutrophils % Seg Neuts % (Manual) Lymphocytes % (Manual) Monocytes % (Manual) Nucleated RBC % Seg Neutrophils # Man Lymphocytes # (Manual) PT INR APTT POC ABG pH POC ABG pCO2 POC ABG pO2 Sodium Carbon Dioxide BUN Creatinine Glucose POC Glucose 302 H 337 H 340 H Calcium AST ALT Alkaline Phosphatase Total Creatine Kinase CK-MB (CK-2) Total Protein Albumin 08/05/16 08/05/16 08/05/16 01:43 05:00 05:00 WBC RBC Hgb 9.5 L Hct 30.1 L MCV 81 L MCH 26 L MCHC RDW 19.1 H Plt Count 112 L Lymph % (Auto) [place] % (Auto) Lymph # [place] # Seg Neutrophils % Seg Neuts % (Manual) Lymphocytes % (Manual) Monocytes % (Manual) Nucleated RBC % Seg Neutrophils # Man Lymphocytes # (Manual) PT INR APTT POC ABG pH POC ABG pCO2 POC ABG pO2 Sodium Carbon Dioxide BUN 27 H Creatinine 0.7 L Glucose 212 H POC Glucose 247 H Calcium 8.3 L AST 92 H ALT 81 H Alkaline Phosphatase 629 H Total Creatine Kinase CK-MB (CK-2) Total Protein 5.9 L Albumin 2.2 L 08/05/16 08/05/16 08/05/16 05:14 05:19 10:12 WBC RBC Hgb Hct MCV MCH MCHC RDW Plt Count Lymph % (Auto) [place] % (Auto) Lymph # [place] # Seg Neutrophils % Seg Neuts % (Manual) Lymphocytes % (Manual) Monocytes % (Manual) Nucleated RBC % Seg Neutrophils # Man Lymphocytes # (Manual) PT INR APTT POC ABG pH 7.469 H POC ABG pCO2 POC ABG pO2 109 H Sodium Carbon Dioxide BUN Creatinine Glucose POC Glucose 208 H 206 H Calcium AST ALT Alkaline Phosphatase Total Creatine Kinase CK-MB (CK-2) Total Protein Albumin 08/05/16 08/05/16 08/05/16 13:54 18:31 22:06 WBC RBC Hgb Hct MCV MCH MCHC RDW Plt Count Lymph % (Auto) [place] % (Auto) Lymph # [place] # Seg Neutrophils % Seg Neuts % (Manual) Lymphocytes % (Manual) Monocytes % (Manual) Nucleated RBC % Seg Neutrophils # Man Lymphocytes # (Manual) PT INR APTT POC ABG pH POC ABG pCO2 POC ABG pO2 Sodium Carbon Dioxide BUN Creatinine Glucose POC Glucose 226 H 229 H 245 H Calcium AST ALT Alkaline Phosphatase Total Creatine Kinase CK-MB (CK-2) Total Protein Albumin 08/06/16 08/06/16 08/06/16 02:03 05:31 05:42 WBC RBC Hgb Hct MCV MCH MCHC RDW Plt Count Lymph % (Auto) [place] % (Auto) Lymph # [place] # Seg Neutrophils % Seg Neuts % (Manual) Lymphocytes % (Manual) Monocytes % (Manual) Nucleated RBC % Seg Neutrophils # Man Lymphocytes # (Manual) PT INR APTT POC ABG pH POC ABG pCO2 POC ABG pO2 62 L Sodium Carbon Dioxide BUN Creatinine Glucose POC Glucose 237 H 205 H Calcium AST ALT Alkaline Phosphatase Total Creatine Kinase CK-MB (CK-2) Total Protein Albumin 08/06/16 08/06/16 08/06/16 09:36 11:30 14:23 WBC RBC Hgb Hct MCV MCH MCHC RDW Plt Count Lymph % (Auto) [place] % (Auto) Lymph # [place] # Seg Neutrophils % Seg Neuts % (Manual) Lymphocytes % (Manual) Monocytes % (Manual) Nucleated RBC % Seg Neutrophils # Man Lymphocytes # (Manual) PT 18.9 H INR 1.59 H APTT 39.7 H POC ABG pH POC ABG pCO2 POC ABG pO2 Sodium Carbon Dioxide BUN Creatinine Glucose POC Glucose 279 H 264 H Calcium AST ALT Alkaline Phosphatase Total Creatine Kinase CK-MB (CK-2) Total Protein Albumin 08/06/16 08/07/16 08/07/16 18:07 03:01 05:18 WBC RBC Hgb Hct MCV MCH MCHC RDW Plt Count Lymph % (Auto) [place] % (Auto) Lymph # [place] # Seg Neutrophils % Seg Neuts % (Manual) Lymphocytes % (Manual) Monocytes % (Manual) Nucleated RBC % Seg Neutrophils # Man Lymphocytes # (Manual) PT INR APTT POC ABG pH 7.459 H POC ABG pCO2 POC ABG pO2 Sodium Carbon Dioxide BUN Creatinine Glucose POC Glucose 176 H 172 H Calcium AST ALT Alkaline Phosphatase Total Creatine Kinase CK-MB (CK-2) Total Protein Albumin 08/07/16 08/07/16 08/07/16 05:32 07:30 07:30 WBC RBC 3.39 L Hgb 8.6 L Hct 27.2 L MCV 80 L MCH 25 L MCHC RDW 19.1 H Plt Count 136 L Lymph % (Auto) [place] % (Auto) Lymph # [place] # Seg Neutrophils % Seg Neuts % (Manual) 84.0 H Lymphocytes % (Manual) 4.0 L Monocytes % (Manual) 8.0 H Nucleated RBC % Seg Neutrophils # Man 8.2 H Lymphocytes # (Manual) 0.4 L PT 17.2 H INR 1.41 H APTT POC ABG pH POC ABG pCO2 POC ABG pO2 Sodium Carbon Dioxide BUN Creatinine Glucose POC Glucose 204 H Calcium AST ALT Alkaline Phosphatase Total Creatine Kinase CK-MB (CK-2) Total Protein Albumin 08/07/16 08/07/16 08/07/16 07:30 10:03 14:35 WBC RBC Hgb Hct MCV MCH MCHC RDW Plt Count Lymph % (Auto) [place] % (Auto) Lymph # [place] # Seg Neutrophils % Seg Neuts % (Manual) Lymphocytes % (Manual) Monocytes % (Manual) Nucleated RBC % Seg Neutrophils # Man Lymphocytes # (Manual) PT INR APTT POC ABG pH POC ABG pCO2 POC ABG pO2 Sodium Carbon Dioxide BUN 27 H Creatinine 0.7 L Glucose 201 H POC Glucose 233 H 255 H Calcium 7.9 L AST 73 H ALT 74 H Alkaline Phosphatase 595 H Total Creatine Kinase CK-MB (CK-2) Total Protein 5.1 L Albumin 1.8 L 08/07/16 08/07/16 08/08/16 16:09 22:01 01:27 WBC RBC Hgb Hct MCV MCH MCHC RDW Plt Count Lymph % (Auto) [place] % (Auto) Lymph # [place] # Seg Neutrophils % Seg Neuts % (Manual) Lymphocytes % (Manual) Monocytes % (Manual) Nucleated RBC % Seg Neutrophils # Man Lymphocytes # (Manual) PT INR APTT POC ABG pH POC ABG pCO2 POC ABG pO2 Sodium Carbon Dioxide BUN Creatinine Glucose POC Glucose 259 H 255 H 252 H Calcium AST ALT Alkaline Phosphatase Total Creatine Kinase CK-MB (CK-2) Total Protein Albumin 08/08/16 08/08/16 08/08/16 05:13 06:23 07:40 WBC RBC 3.36 L Hgb 8.5 L Hct 27.1 L MCV 81 L MCH 25 L MCHC 31 L RDW 18.8 H Plt Count 129 L Lymph % (Auto) [place] % (Auto) Lymph # [place] # Seg Neutrophils % Seg Neuts % (Manual) Lymphocytes % (Manual) Monocytes % (Manual) Nucleated RBC % 2.0 H Seg Neutrophils # Man Lymphocytes # (Manual) PT INR APTT POC ABG pH 7.460 H POC ABG pCO2 POC ABG pO2 74 L Sodium Carbon Dioxide BUN Creatinine Glucose POC Glucose 264 H Calcium AST ALT Alkaline Phosphatase Total Creatine Kinase CK-MB (CK-2) Total Protein Albumin 08/08/16 08/08/16 08/08/16 07:40 10:01 15:00 WBC RBC Hgb Hct MCV MCH MCHC RDW Plt Count Lymph % (Auto) [place] % (Auto) Lymph # [place] # Seg Neutrophils % Seg Neuts % (Manual) Lymphocytes % (Manual) Monocytes % (Manual) Nucleated RBC % Seg Neutrophils # Man Lymphocytes # (Manual) PT INR APTT POC ABG pH POC ABG pCO2 POC ABG pO2 Sodium Carbon Dioxide BUN 26 H Creatinine 0.7 L Glucose 233 H POC Glucose 271 H 275 H Calcium 7.6 L AST 77 H ALT 71 H Alkaline Phosphatase 658 H Total Creatine Kinase CK-MB (CK-2) Total Protein 5.0 L Albumin 1.6 L 08/08/16 08/08/16 08/08/16 17:28 21:32 23:53 WBC RBC Hgb Hct MCV MCH MCHC RDW Plt Count Lymph % (Auto) [place] % (Auto) Lymph # [place] # Seg Neutrophils % Seg Neuts % (Manual) Lymphocytes % (Manual) Monocytes % (Manual) Nucleated RBC % Seg Neutrophils # Man Lymphocytes # (Manual) PT INR APTT POC ABG pH POC ABG pCO2 POC ABG pO2 Sodium Carbon Dioxide BUN Creatinine Glucose POC Glucose 275 H 252 H 246 H Calcium AST ALT Alkaline Phosphatase Total Creatine Kinase CK-MB (CK-2) Total Protein Albumin 08/09/16 08/09/16 08/09/16 03:32 05:00 05:00 WBC RBC 3.34 L Hgb 8.3 L Hct 26.7 L MCV 80 L MCH 25 L MCHC 31 L RDW 18.5 H Plt Count Lymph % (Auto) [place] % (Auto) Lymph # [place] # Seg Neutrophils % Seg Neuts % (Manual) Lymphocytes % (Manual) Monocytes % (Manual) Nucleated RBC % Seg Neutrophils # Man Lymphocytes # (Manual) PT INR APTT POC ABG pH POC ABG pCO2 POC ABG pO2 Sodium Carbon Dioxide BUN 25 H Creatinine 0.5 L Glucose 230 H POC Glucose 260 H Calcium 7.6 L AST ALT Alkaline Phosphatase Total Creatine Kinase CK-MB (CK-2) Total Protein Albumin 08/09/16 08/09/16 08/09/16 06:00 10:07 14:07 WBC RBC Hgb Hct MCV MCH MCHC RDW Plt Count Lymph % (Auto) [place] % (Auto) Lymph # [place] # Seg Neutrophils % Seg Neuts % (Manual) Lymphocytes % (Manual) Monocytes % (Manual) Nucleated RBC % Seg Neutrophils # Man Lymphocytes # (Manual) PT INR APTT POC ABG pH 7.493 H POC ABG pCO2 POC ABG pO2 Sodium Carbon Dioxide BUN Creatinine Glucose POC Glucose 216 H 220 H Calcium AST ALT Alkaline Phosphatase Total Creatine Kinase CK-MB (CK-2) Total Protein Albumin 08/09/16 08/09/16 08/10/16 16:55 21:07 02:09 WBC RBC Hgb Hct MCV MCH MCHC RDW Plt Count Lymph % (Auto) [place] % (Auto) Lymph # [place] # Seg Neutrophils % Seg Neuts % (Manual) Lymphocytes % (Manual) Monocytes % (Manual) Nucleated RBC % Seg Neutrophils # Man Lymphocytes # (Manual) PT INR APTT POC ABG pH POC ABG pCO2 POC ABG pO2 Sodium Carbon Dioxide BUN Creatinine Glucose POC Glucose 242 H 235 H 228 H Calcium AST ALT Alkaline Phosphatase Total Creatine Kinase CK-MB (CK-2) Total Protein Albumin 08/10/16 08/10/16 08/10/16 05:31 09:06 13:45 WBC RBC Hgb Hct MCV MCH MCHC RDW Plt Count Lymph % (Auto) [place] % (Auto) Lymph # [place] # Seg Neutrophils % Seg Neuts % (Manual) Lymphocytes % (Manual) Monocytes % (Manual) Nucleated RBC % Seg Neutrophils # Man Lymphocytes # (Manual) PT INR APTT POC ABG pH POC ABG pCO2 POC ABG pO2 Sodium Carbon Dioxide BUN Creatinine Glucose POC Glucose 201 H 229 H 274 H Calcium AST ALT Alkaline Phosphatase Total Creatine Kinase CK-MB (CK-2) Total Protein Albumin 08/10/16 08/10/16 08/10/16 17:53 21:43 Unknown WBC RBC 3.42 L Hgb 8.6 L Hct 27.5 L MCV 80 L MCH 25 L MCHC RDW 19.1 H Plt Count Lymph % (Auto) [place] % (Auto) Lymph # [place] # Seg Neutrophils % Seg Neuts % (Manual) Lymphocytes % (Manual) Monocytes % (Manual) Nucleated RBC % Seg Neutrophils # Man Lymphocytes # (Manual) PT INR APTT POC ABG pH POC ABG pCO2 POC ABG pO2 Sodium Carbon Dioxide BUN Creatinine Glucose POC Glucose 284 H 328 H Calcium AST ALT Alkaline Phosphatase Total Creatine Kinase CK-MB (CK-2) Total Protein Albumin 08/10/16 08/11/16 08/11/16 Unknown 01:37 05:39 WBC RBC Hgb Hct MCV MCH MCHC RDW Plt Count Lymph % (Auto) [place] % (Auto) Lymph # [place] # Seg Neutrophils % Seg Neuts % (Manual) Lymphocytes % (Manual) Monocytes % (Manual) Nucleated RBC % Seg Neutrophils # Man Lymphocytes # (Manual) PT INR APTT POC ABG pH POC ABG pCO2 POC ABG pO2 Sodium Carbon Dioxide BUN 27 H Creatinine 0.6 L Glucose 211 H POC Glucose 340 H 323 H Calcium 7.8 L AST ALT Alkaline Phosphatase Total Creatine Kinase CK-MB (CK-2) Total Protein Albumin 08/11/16 08/11/16 08/11/16 09:58 15:22 17:41 WBC RBC Hgb Hct MCV MCH MCHC RDW Plt Count Lymph % (Auto) [place] % (Auto) Lymph # [place] # Seg Neutrophils % Seg Neuts % (Manual) Lymphocytes % (Manual) Monocytes % (Manual) Nucleated RBC % Seg Neutrophils # Man Lymphocytes # (Manual) PT INR APTT POC ABG pH POC ABG pCO2 POC ABG pO2 Sodium Carbon Dioxide BUN Creatinine Glucose POC Glucose 295 H 210 H 164 H Calcium AST ALT Alkaline Phosphatase Total Creatine Kinase CK-MB (CK-2) Total Protein Albumin 08/11/16 08/12/16 08/12/16 21:53 01:56 05:15 WBC RBC Hgb Hct MCV MCH MCHC RDW Plt Count Lymph % (Auto) [place] % (Auto) Lymph # [place] # Seg Neutrophils % Seg Neuts % (Manual) Lymphocytes % (Manual) Monocytes % (Manual) Nucleated RBC % Seg Neutrophils # Man Lymphocytes # (Manual) PT INR APTT POC ABG pH POC ABG pCO2 POC ABG pO2 Sodium Carbon Dioxide BUN Creatinine Glucose POC Glucose 171 H 205 H 156 H Calcium AST ALT Alkaline Phosphatase Total Creatine Kinase CK-MB (CK-2) Total Protein Albumin 08/12/16 10:10 WBC RBC Hgb Hct MCV MCH MCHC RDW Plt Count Lymph % (Auto) [place] % (Auto) Lymph # [place] # Seg Neutrophils % Seg Neuts % (Manual) Lymphocytes % (Manual) Monocytes % (Manual) Nucleated RBC % Seg Neutrophils # Man Lymphocytes # (Manual) PT INR APTT POC ABG pH POC ABG pCO2 POC ABG pO2 Sodium Carbon Dioxide BUN Creatinine Glucose POC Glucose 224 H Calcium AST ALT Alkaline Phosphatase Total Creatine Kinase CK-MB (CK-2) Total Protein Albumin
--- NOTE | 2016-08-12 18:11 | Progress Note ---
Assessment and Plan - Patient Problems (1) Acute respiratory failure Current Visit: Yes Status: Acute Qualifiers: Respiratory failure complication: hypoxia Qualified Code(s): J96.01 - Acute respiratory failure with hypoxia Plan to address problem: Continue inhaled antibiotic through weekend. (2) Altered mental status Current Visit: Yes Status: Acute Qualifiers: Altered mental status type: stupor Coma depth: C Coma timing: C Qualified Code(s): R40.1 - Stupor Subjective Date of service: 08/12/16 Principal diagnosis: acute respiratory failure Interval history: Patient remains in ICU. Afebrile for >48 hours. Slowly return of sustained awakening. Objective - Constitutional Vitals: Vital Signs Temp Pulse Resp BP Pulse Ox 98.9 F 82 20 125/53 97 08/12/16 16:00 08/12/16 17:18 08/12/16 17:18 08/12/16 17:18 08/12/16 17:18 Temperature -Last 24 Hours Temperature 98.9 F Temperature 98.9 F Temperature 98.6 F Temperature 99.6 F Temperature 100.1 F Temperature 99 F Temperature 99.6 F General appearance: Present: no acute distress, well-nourished - EENT Eyes: no scleral icterus, no conjunctival injection ENT: other (ET tube in place) - Respiratory Respiratory: bilateral: CTA (FiO2 30%), negative: rales, rhonchi - Cardiovascular Rhythm: regular Heart Sounds: Present: S1 & S2 Extremities: No edema - Gastrointestinal General gastrointestinal: Present: soft, non-tender, non-distended Rectal Exam: other (rectal tube with watery brown stool) - Genitourinary Male genitourinary: normal (Foleyw ith yellow urine) - Integumentary Integumentary: clear, no jaundice, no rash - Labs CBC & Chem 7: 08/10/16 Unknown 08/10/16 Unknown Labs: Abnormal lab results 08/11/16 08/12/16 08/12/16 Range/Units 21:53 01:56 05:15 POC Glucose 171 H 205 H 156 H (70-105) 08/12/16 Range/Units 10:10 POC Glucose 224 H (70-105) Microbiology 08/04/16 11:54 Cerebral Spinal Fluid CSF Culture - Final 08/04/16 11:54 Cerebral Spinal Fluid Cryptococcal Antigen - Final 08/03/16 Unknown Tracheal Aspirate Sputum Culture - Final Pseudomonas Aeruginosa Escherichia Coli 08/01/16 13:18 Peripheral/Venous Blood Culture - Final NO GROWTH AFTER 5 DAYS 08/01/16 10:57 Peripheral/Venous Blood Culture - Final NO GROWTH AFTER 5 DAYS 07/30/16 23:34 Tracheal Aspirate Sputum Culture - Final
[2016-08-13 04:34] LABS: Hematocrit 28.4 % (35.5-45.6); Hemoglobin 8.9 gm/dl (11.8-15.2); Mean Corpuscular HGB Conc 31 % (32-34); Mean Corpuscular Hemoglobin 25 pg (28-32); Mean Corpuscular Volume 81 fl (84-94); Platelet Count 199 K/mm3 (140-440); Red Blood Count 3.53 M/mm3 (3.65-5.03); Red Cell Distribution Width 19.2 % (13.2-15.2); White Blood Count 9.7 K/mm3 (4.5-11.0)
[2016-08-13 07:17] LABS: Anion Gap 17 mmol/L; BUN/Creatinine Ratio 43.33; Blood Urea Nitrogen 26 mg/dL (9-20); Calcium 7.3 mg/dL (8.4-10.2); Carbon Dioxide 27 mmol/L (22-30); Chloride 97.2 mmol/L (98-107); Glucose 185 mg/dL (75-100); Potassium 4.7 mmol/L (3.6-5.0); Sodium 136 mmol/L (137-145)
[2016-08-13] MEDS: TOBRAMYCIN INHALATION (NICU) (40 MG/ML) IH SCH (09:17)
--- NOTE | 2016-08-13 10:03 | Progress Note ---
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 1. Not safely weanable without trach. Finally spoke with son as I had the wrong number. Ok with trach and peg. Consulted [facility]. (Jose Elias) [phone]. This is the correct number now. 2. Continue Daily PSV trials and AC rest at night 3. Neuro back on Sunday, will ask if any further recs or imaging needed. 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 Infectious etiologies have been ruled out. 4. Blood sugars better with increased levemir. 5. Will continue to follow along with you CCT 31 minutes. Subjective Date of service: 08/13/16 Principal diagnosis: acute respiratory failure Interval history: No acute events. Finally spoke with son on yesterday. He is going to speak with the rest of family but would like to proceed with evaluation for trach and peg. No family currently at bedside. Still with low grade temps. Objective Vital Signs - 12hr 08/12/16 08/12/16 08/12/16 22:00 23:00 23:19 Temperature Pulse Rate 86 84 89 Pulse Rate [ Anterior Bilateral Throughout] Pulse Rate [ From Monitor] Respiratory 19 17 20 Rate Respiratory Rate [Anterior Bilateral Throughout] Blood Pressure 126/62 122/57 122/57 O2 Sat by Pulse 98 97 97 Oximetry 08/12/16 08/13/16 08/13/16 23:27 00:00 01:00 Temperature 100.2 F H Pulse Rate 84 84 90 Pulse Rate [ Anterior Bilateral Throughout] Pulse Rate [ 84 From Monitor] Respiratory 18 12 Rate Respiratory Rate [Anterior Bilateral Throughout] Blood Pressure 122/57 134/49 119/57 O2 Sat by Pulse 98 96 98 Oximetry 08/13/16 08/13/16 08/13/16 02:00 03:00 04:00 Temperature 99.1 F Pulse Rate 86 83 86 Pulse Rate [ Anterior Bilateral Throughout] Pulse Rate [ 79 From Monitor] Respiratory 20 16 16 Rate Respiratory Rate [Anterior Bilateral Throughout] Blood Pressure 126/58 117/56 130/56 O2 Sat by Pulse 98 94 95 Oximetry 08/13/16 08/13/16 08/13/16 04:02 05:01 06:00 Temperature Pulse Rate 85 90 77 Pulse Rate [ Anterior Bilateral Throughout] Pulse Rate [ From Monitor] Respiratory 19 10 L Rate Respiratory Rate [Anterior Bilateral Throughout] Blood Pressure 117/56 130/56 125/56 O2 Sat by Pulse 99 98 97 Oximetry 08/13/16 08/13/16 08/13/16 07:00 07:03 08:00 Temperature 98.7 F Pulse Rate 86 80 83 Pulse Rate [ Anterior Bilateral Throughout] Pulse Rate [ 90 From Monitor] Respiratory 17 14 Rate Respiratory Rate [Anterior Bilateral Throughout] Blood Pressure 135/55 135/55 136/59 O2 Sat by Pulse 100 98 97 Oximetry 08/13/16 08/13/16 08/13/16 08:35 09:00 09:17 Temperature Pulse Rate 79 79 Pulse Rate [ 76 Anterior Bilateral Throughout] Pulse Rate [ From Monitor] Respiratory 18 17 Rate Respiratory 18 Rate [Anterior Bilateral Throughout] Blood Pressure 122/56 122/56 O2 Sat by Pulse 99 99 Oximetry Constitutional: no acute distress, other (intubated, ) Eyes: other (pupils are equal, very slowly reactive) ENT: other (orally intubated) Neck: supple, no JVD Ascultation: Bilateral: clear, diminished breath sounds Gastrointestinal: normoactive bowel sounds, non-distended Integumentary: normal Extremities: no cyanosis, no edema Neurologic: other (no changes) CBC and BMP: 08/13/16 Unknown 08/13/16 04:00 ABG, PT/INR, D-dimer: ABG POC ABG pH 7.493 (7.35-7.45) H 08/09/16 06:00 POC ABG pCO2 38.8 (35-45) 08/09/16 06:00 POC ABG pO2 83 (80-105) 08/09/16 06:00 POC ABG HCO3 29.8 08/09/16 06:00 POC ABG Total CO2 31 08/09/16 06:00 POC ABG O2 Sat 97 08/09/16 06:00 PT/INR, D-dimer PT 17.2 Sec. (12.2-14.9) H 08/07/16 07:30 INR 1.41 (0.87-1.13) H 08/07/16 07:30 Abnormal lab findings: Abnormal Labs 07/31/16 07/31/16 07/31/16 08:39 10:07 12:07 WBC RBC Hgb Hct MCV MCH MCHC RDW Plt Count Lymph % (Auto) [place] % (Auto) Lymph # [place] # Seg Neutrophils % Seg Neuts % (Manual) Lymphocytes % (Manual) Monocytes % (Manual) Nucleated RBC % Seg Neutrophils # Man Lymphocytes # (Manual) PT INR APTT POC ABG pH POC ABG pCO2 POC ABG pO2 Sodium Chloride Carbon Dioxide BUN Creatinine Glucose POC Glucose 205 H 188 H Calcium AST ALT Alkaline Phosphatase Total Creatine Kinase 865 H CK-MB (CK-2) 5.9 H Total Protein Albumin 07/31/16 07/31/16 07/31/16 16:19 19:58 23:53 WBC RBC Hgb Hct MCV MCH MCHC RDW Plt Count Lymph % (Auto) [place] % (Auto) Lymph # [place] # Seg Neutrophils % Seg Neuts % (Manual) Lymphocytes % (Manual) Monocytes % (Manual) Nucleated RBC % Seg Neutrophils # Man Lymphocytes # (Manual) PT INR APTT POC ABG pH POC ABG pCO2 POC ABG pO2 Sodium Chloride Carbon Dioxide BUN Creatinine Glucose POC Glucose 195 H 147 H 160 H Calcium AST ALT Alkaline Phosphatase Total Creatine Kinase CK-MB (CK-2) Total Protein Albumin 08/01/16 08/01/16 08/01/16 04:18 04:42 07:45 WBC 14.8 H RBC Hgb 10.7 L Hct 34.9 L MCV 82 L MCH 25 L MCHC 31 L RDW 19.1 H Plt Count Lymph % (Auto) [place] % (Auto) Lymph # [place] # Seg Neutrophils % Seg Neuts % (Manual) 80.0 H Lymphocytes % (Manual) 12.0 L Monocytes % (Manual) Nucleated RBC % Seg Neutrophils # Man 11.8 H Lymphocytes # (Manual) PT INR APTT POC ABG pH POC ABG pCO2 33.4 L POC ABG pO2 66 L Sodium Chloride Carbon Dioxide BUN Creatinine Glucose POC Glucose 225 H Calcium AST ALT Alkaline Phosphatase Total Creatine Kinase CK-MB (CK-2) Total Protein Albumin 08/01/16 08/01/16 08/01/16 07:45 10:09 10:59 WBC RBC Hgb Hct MCV MCH MCHC RDW Plt Count Lymph % (Auto) [place] % (Auto) Lymph # [place] # Seg Neutrophils % Seg Neuts % (Manual) Lymphocytes % (Manual) Monocytes % (Manual) Nucleated RBC % Seg Neutrophils # Man Lymphocytes # (Manual) PT INR APTT POC ABG pH POC ABG pCO2 POC ABG pO2 Sodium Chloride Carbon Dioxide BUN 29 H Creatinine Glucose 233 H POC Glucose 266 H 318 H Calcium 7.6 L AST ALT Alkaline Phosphatase Total Creatine Kinase CK-MB (CK-2) Total Protein Albumin 08/01/16 08/01/16 08/01/16 14:24 17:56 21:21 WBC RBC Hgb Hct MCV MCH MCHC RDW Plt Count Lymph % (Auto) [place] % (Auto) Lymph # [place] # Seg Neutrophils % Seg Neuts % (Manual) Lymphocytes % (Manual) Monocytes % (Manual) Nucleated RBC % Seg Neutrophils # Man Lymphocytes # (Manual) PT INR APTT POC ABG pH POC ABG pCO2 POC ABG pO2 Sodium Chloride Carbon Dioxide BUN Creatinine Glucose POC Glucose 298 H 239 H 203 H Calcium AST ALT Alkaline Phosphatase Total Creatine Kinase CK-MB (CK-2) Total Protein Albumin 08/02/16 08/02/16 08/02/16 02:05 03:55 05:38 WBC RBC Hgb Hct MCV MCH MCHC RDW Plt Count Lymph % (Auto) [place] % (Auto) Lymph # [place] # Seg Neutrophils % Seg Neuts % (Manual) Lymphocytes % (Manual) Monocytes % (Manual) Nucleated RBC % Seg Neutrophils # Man Lymphocytes # (Manual) PT INR APTT POC ABG pH 7.460 H POC ABG pCO2 31.2 L POC ABG pO2 71 L Sodium Chloride Carbon Dioxide BUN Creatinine Glucose POC Glucose 248 H 253 H Calcium AST ALT Alkaline Phosphatase Total Creatine Kinase CK-MB (CK-2) Total Protein Albumin 08/02/16 08/02/16 08/02/16 09:11 09:44 09:44 WBC RBC 3.62 L Hgb 9.4 L Hct 29.1 L MCV 80 L MCH 26 L MCHC RDW 18.7 H Plt Count Lymph % (Auto) [place] % (Auto) 9.2 H Lymph # [place] # 1.0 H Seg Neutrophils % 72.0 H Seg Neuts % (Manual) Lymphocytes % (Manual) Monocytes % (Manual) Nucleated RBC % Seg Neutrophils # Man Lymphocytes # (Manual) PT INR APTT POC ABG pH POC ABG pCO2 POC ABG pO2 Sodium 135 L Chloride Carbon Dioxide 21 L BUN 42 H Creatinine Glucose 248 H POC Glucose 306 H Calcium 7.6 L AST ALT Alkaline Phosphatase Total Creatine Kinase CK-MB (CK-2) Total Protein Albumin 08/02/16 08/02/16 08/02/16 15:53 17:33 21:39 WBC RBC Hgb Hct MCV MCH MCHC RDW Plt Count Lymph % (Auto) [place] % (Auto) Lymph # [place] # Seg Neutrophils % Seg Neuts % (Manual) Lymphocytes % (Manual) Monocytes % (Manual) Nucleated RBC % Seg Neutrophils # Man Lymphocytes # (Manual) PT INR APTT POC ABG pH POC ABG pCO2 POC ABG pO2 Sodium Chloride Carbon Dioxide BUN Creatinine Glucose POC Glucose 205 H 250 H 282 H Calcium AST ALT Alkaline Phosphatase Total Creatine Kinase CK-MB (CK-2) Total Protein Albumin 08/03/16 08/03/16 08/03/16 02:28 05:47 07:05 WBC RBC 3.32 L Hgb 8.4 L Hct 26.5 L MCV 80 L MCH 25 L MCHC RDW 18.7 H Plt Count 112 L Lymph % (Auto) 12.5 L [place] % (Auto) 10.2 H Lymph # 1.0 L [place] # Seg Neutrophils % 75.9 H Seg Neuts % (Manual) Lymphocytes % (Manual) Monocytes % (Manual) Nucleated RBC % Seg Neutrophils # Man Lymphocytes # (Manual) PT INR APTT POC ABG pH POC ABG pCO2 POC ABG pO2 Sodium Chloride Carbon Dioxide BUN Creatinine Glucose POC Glucose 317 H 253 H Calcium AST ALT Alkaline Phosphatase Total Creatine Kinase CK-MB (CK-2) Total Protein Albumin 08/03/16 08/03/16 08/03/16 07:05 09:50 14:07 WBC RBC Hgb Hct MCV MCH MCHC RDW Plt Count Lymph % (Auto) [place] % (Auto) Lymph # [place] # Seg Neutrophils % Seg Neuts % (Manual) Lymphocytes % (Manual) Monocytes % (Manual) Nucleated RBC % Seg Neutrophils # Man Lymphocytes # (Manual) PT INR APTT POC ABG pH POC ABG pCO2 POC ABG pO2 Sodium 132 L Chloride Carbon Dioxide 20 L BUN 42 H Creatinine Glucose 243 H POC Glucose 332 H 345 H Calcium 6.8 L AST ALT Alkaline Phosphatase Total Creatine Kinase CK-MB (CK-2) Total Protein Albumin 08/03/16 08/03/16 08/04/16 17:38 21:36 02:18 WBC RBC Hgb Hct MCV MCH MCHC RDW Plt Count Lymph % (Auto) [place] % (Auto) Lymph # [place] # Seg Neutrophils % Seg Neuts % (Manual) Lymphocytes % (Manual) Monocytes % (Manual) Nucleated RBC % Seg Neutrophils # Man Lymphocytes # (Manual) PT INR APTT POC ABG pH POC ABG pCO2 POC ABG pO2 Sodium Chloride Carbon Dioxide BUN Creatinine Glucose POC Glucose 262 H 260 H 256 H Calcium AST ALT Alkaline Phosphatase Total Creatine Kinase CK-MB (CK-2) Total Protein Albumin 08/04/16 08/04/16 08/04/16 05:41 06:00 10:20 WBC RBC Hgb Hct MCV MCH MCHC RDW Plt Count Lymph % (Auto) [place] % (Auto) Lymph # [place] # Seg Neutrophils % Seg Neuts % (Manual) Lymphocytes % (Manual) Monocytes % (Manual) Nucleated RBC % Seg Neutrophils # Man Lymphocytes # (Manual) PT INR APTT POC ABG pH POC ABG pCO2 POC ABG pO2 Sodium Chloride Carbon Dioxide BUN 34 H Creatinine 0.7 L Glucose 237 H POC Glucose 265 H 266 H Calcium 7.9 L D AST ALT Alkaline Phosphatase Total Creatine Kinase CK-MB (CK-2) Total Protein Albumin 08/04/16 08/04/16 08/04/16 14:20 17:31 21:52 WBC RBC Hgb Hct MCV MCH MCHC RDW Plt Count Lymph % (Auto) [place] % (Auto) Lymph # [place] # Seg Neutrophils % Seg Neuts % (Manual) Lymphocytes % (Manual) Monocytes % (Manual) Nucleated RBC % Seg Neutrophils # Man Lymphocytes # (Manual) PT INR APTT POC ABG pH POC ABG pCO2 POC ABG pO2 Sodium Chloride Carbon Dioxide BUN Creatinine Glucose POC Glucose 302 H 337 H 340 H Calcium AST ALT Alkaline Phosphatase Total Creatine Kinase CK-MB (CK-2) Total Protein Albumin 08/05/16 08/05/16 08/05/16 01:43 05:00 05:00 WBC RBC Hgb 9.5 L Hct 30.1 L MCV 81 L MCH 26 L MCHC RDW 19.1 H Plt Count 112 L Lymph % (Auto) [place] % (Auto) Lymph # [place] # Seg Neutrophils % Seg Neuts % (Manual) Lymphocytes % (Manual) Monocytes % (Manual) Nucleated RBC % Seg Neutrophils # Man Lymphocytes # (Manual) PT INR APTT POC ABG pH POC ABG pCO2 POC ABG pO2 Sodium Chloride Carbon Dioxide BUN 27 H Creatinine 0.7 L Glucose 212 H POC Glucose 247 H Calcium 8.3 L AST 92 H ALT 81 H Alkaline Phosphatase 629 H Total Creatine Kinase CK-MB (CK-2) Total Protein 5.9 L Albumin 2.2 L 08/05/16 08/05/16 08/05/16 05:14 05:19 10:12 WBC RBC Hgb Hct MCV MCH MCHC RDW Plt Count Lymph % (Auto) [place] % (Auto) Lymph # [place] # Seg Neutrophils % Seg Neuts % (Manual) Lymphocytes % (Manual) Monocytes % (Manual) Nucleated RBC % Seg Neutrophils # Man Lymphocytes # (Manual) PT INR APTT POC ABG pH 7.469 H POC ABG pCO2 POC ABG pO2 109 H Sodium Chloride Carbon Dioxide BUN Creatinine Glucose POC Glucose 208 H 206 H Calcium AST ALT Alkaline Phosphatase Total Creatine Kinase CK-MB (CK-2) Total Protein Albumin 08/05/16 08/05/16 08/05/16 13:54 18:31 22:06 WBC RBC Hgb Hct MCV MCH MCHC RDW Plt Count Lymph % (Auto) [place] % (Auto) Lymph # [place] # Seg Neutrophils % Seg Neuts % (Manual) Lymphocytes % (Manual) Monocytes % (Manual) Nucleated RBC % Seg Neutrophils # Man Lymphocytes # (Manual) PT INR APTT POC ABG pH POC ABG pCO2 POC ABG pO2 Sodium Chloride Carbon Dioxide BUN Creatinine Glucose POC Glucose 226 H 229 H 245 H Calcium AST ALT Alkaline Phosphatase Total Creatine Kinase CK-MB (CK-2) Total Protein Albumin 08/06/16 08/06/16 08/06/16 02:03 05:31 05:42 WBC RBC Hgb Hct MCV MCH MCHC RDW Plt Count Lymph % (Auto) [place] % (Auto) Lymph # [place] # Seg Neutrophils % Seg Neuts % (Manual) Lymphocytes % (Manual) Monocytes % (Manual) Nucleated RBC % Seg Neutrophils # Man Lymphocytes # (Manual) PT INR APTT POC ABG pH POC ABG pCO2 POC ABG pO2 62 L Sodium Chloride Carbon Dioxide BUN Creatinine Glucose POC Glucose 237 H 205 H Calcium AST ALT Alkaline Phosphatase Total Creatine Kinase CK-MB (CK-2) Total Protein Albumin 08/06/16 08/06/16 08/06/16 09:36 11:30 14:23 WBC RBC Hgb Hct MCV MCH MCHC RDW Plt Count Lymph % (Auto) [place] % (Auto) Lymph # [place] # Seg Neutrophils % Seg Neuts % (Manual) Lymphocytes % (Manual) Monocytes % (Manual) Nucleated RBC % Seg Neutrophils # Man Lymphocytes # (Manual) PT 18.9 H INR 1.59 H APTT 39.7 H POC ABG pH POC ABG pCO2 POC ABG pO2 Sodium Chloride Carbon Dioxide BUN Creatinine Glucose POC Glucose 279 H 264 H Calcium AST ALT Alkaline Phosphatase Total Creatine Kinase CK-MB (CK-2) Total Protein Albumin 08/06/16 08/07/16 08/07/16 18:07 03:01 05:18 WBC RBC Hgb Hct MCV MCH MCHC RDW Plt Count Lymph % (Auto) [place] % (Auto) Lymph # [place] # Seg Neutrophils % Seg Neuts % (Manual) Lymphocytes % (Manual) Monocytes % (Manual) Nucleated RBC % Seg Neutrophils # Man Lymphocytes # (Manual) PT INR APTT POC ABG pH 7.459 H POC ABG pCO2 POC ABG pO2 Sodium Chloride Carbon Dioxide BUN Creatinine Glucose POC Glucose 176 H 172 H Calcium AST ALT Alkaline Phosphatase Total Creatine Kinase CK-MB (CK-2) Total Protein Albumin 08/07/16 08/07/16 08/07/16 05:32 07:30 07:30 WBC RBC 3.39 L Hgb 8.6 L Hct 27.2 L MCV 80 L MCH 25 L MCHC RDW 19.1 H Plt Count 136 L Lymph % (Auto) [place] % (Auto) Lymph # [place] # Seg Neutrophils % Seg Neuts % (Manual) 84.0 H Lymphocytes % (Manual) 4.0 L Monocytes % (Manual) 8.0 H Nucleated RBC % Seg Neutrophils # Man 8.2 H Lymphocytes # (Manual) 0.4 L PT 17.2 H INR 1.41 H APTT POC ABG pH POC ABG pCO2 POC ABG pO2 Sodium Chloride Carbon Dioxide BUN Creatinine Glucose POC Glucose 204 H Calcium AST ALT Alkaline Phosphatase Total Creatine Kinase CK-MB (CK-2) Total Protein Albumin 08/07/16 08/07/16 08/07/16 07:30 10:03 14:35 WBC RBC Hgb Hct MCV MCH MCHC RDW Plt Count Lymph % (Auto) [place] % (Auto) Lymph # [place] # Seg Neutrophils % Seg Neuts % (Manual) Lymphocytes % (Manual) Monocytes % (Manual) Nucleated RBC % Seg Neutrophils # Man Lymphocytes # (Manual) PT INR APTT POC ABG pH POC ABG pCO2 POC ABG pO2 Sodium Chloride Carbon Dioxide BUN 27 H Creatinine 0.7 L Glucose 201 H POC Glucose 233 H 255 H Calcium 7.9 L AST 73 H ALT 74 H Alkaline Phosphatase 595 H Total Creatine Kinase CK-MB (CK-2) Total Protein 5.1 L Albumin 1.8 L 08/07/16 08/07/16 08/08/16 16:09 22:01 01:27 WBC RBC Hgb Hct MCV MCH MCHC RDW Plt Count Lymph % (Auto) [place] % (Auto) Lymph # [place] # Seg Neutrophils % Seg Neuts % (Manual) Lymphocytes % (Manual) Monocytes % (Manual) Nucleated RBC % Seg Neutrophils # Man Lymphocytes # (Manual) PT INR APTT POC ABG pH POC ABG pCO2 POC ABG pO2 Sodium Chloride Carbon Dioxide BUN Creatinine Glucose POC Glucose 259 H 255 H 252 H Calcium AST ALT Alkaline Phosphatase Total Creatine Kinase CK-MB (CK-2) Total Protein Albumin 08/08/16 08/08/16 08/08/16 05:13 06:23 07:40 WBC RBC 3.36 L Hgb 8.5 L Hct 27.1 L MCV 81 L MCH 25 L MCHC 31 L RDW 18.8 H Plt Count 129 L Lymph % (Auto) [place] % (Auto) Lymph # [place] # Seg Neutrophils % Seg Neuts % (Manual) Lymphocytes % (Manual) Monocytes % (Manual) Nucleated RBC % 2.0 H Seg Neutrophils # Man Lymphocytes # (Manual) PT INR APTT POC ABG pH 7.460 H POC ABG pCO2 POC ABG pO2 74 L Sodium Chloride Carbon Dioxide BUN Creatinine Glucose POC Glucose 264 H Calcium AST ALT Alkaline Phosphatase Total Creatine Kinase CK-MB (CK-2) Total Protein Albumin 08/08/16 08/08/16 08/08/16 07:40 10:01 15:00 WBC RBC Hgb Hct MCV MCH MCHC RDW Plt Count Lymph % (Auto) [place] % (Auto) Lymph # [place] # Seg Neutrophils % Seg Neuts % (Manual) Lymphocytes % (Manual) Monocytes % (Manual) Nucleated RBC % Seg Neutrophils # Man Lymphocytes # (Manual) PT INR APTT POC ABG pH POC ABG pCO2 POC ABG pO2 Sodium Chloride Carbon Dioxide BUN 26 H Creatinine 0.7 L Glucose 233 H POC Glucose 271 H 275 H Calcium 7.6 L AST 77 H ALT 71 H Alkaline Phosphatase 658 H Total Creatine Kinase CK-MB (CK-2) Total Protein 5.0 L Albumin 1.6 L 08/08/16 08/08/16 08/08/16 17:28 21:32 23:53 WBC RBC Hgb Hct MCV MCH MCHC RDW Plt Count Lymph % (Auto) [place] % (Auto) Lymph # [place] # Seg Neutrophils % Seg Neuts % (Manual) Lymphocytes % (Manual) Monocytes % (Manual) Nucleated RBC % Seg Neutrophils # Man Lymphocytes # (Manual) PT INR APTT POC ABG pH POC ABG pCO2 POC ABG pO2 Sodium Chloride Carbon Dioxide BUN Creatinine Glucose POC Glucose 275 H 252 H 246 H Calcium AST ALT Alkaline Phosphatase Total Creatine Kinase CK-MB (CK-2) Total Protein Albumin 08/09/16 08/09/16 08/09/16 03:32 05:00 05:00 WBC RBC 3.34 L Hgb 8.3 L Hct 26.7 L MCV 80 L MCH 25 L MCHC 31 L RDW 18.5 H Plt Count Lymph % (Auto) [place] % (Auto) Lymph # [place] # Seg Neutrophils % Seg Neuts % (Manual) Lymphocytes % (Manual) Monocytes % (Manual) Nucleated RBC % Seg Neutrophils # Man Lymphocytes # (Manual) PT INR APTT POC ABG pH POC ABG pCO2 POC ABG pO2 Sodium Chloride Carbon Dioxide BUN 25 H Creatinine 0.5 L Glucose 230 H POC Glucose 260 H Calcium 7.6 L AST ALT Alkaline Phosphatase Total Creatine Kinase CK-MB (CK-2) Total Protein Albumin 08/09/16 08/09/16 08/09/16 06:00 10:07 14:07 WBC RBC Hgb Hct MCV MCH MCHC RDW Plt Count Lymph % (Auto) [place] % (Auto) Lymph # [place] # Seg Neutrophils % Seg Neuts % (Manual) Lymphocytes % (Manual) Monocytes % (Manual) Nucleated RBC % Seg Neutrophils # Man Lymphocytes # (Manual) PT INR APTT POC ABG pH 7.493 H POC ABG pCO2 POC ABG pO2 Sodium Chloride Carbon Dioxide BUN Creatinine Glucose POC Glucose 216 H 220 H Calcium AST ALT Alkaline Phosphatase Total Creatine Kinase CK-MB (CK-2) Total Protein Albumin 08/09/16 08/09/16 08/10/16 16:55 21:07 02:09 WBC RBC Hgb Hct MCV MCH MCHC RDW Plt Count Lymph % (Auto) [place] % (Auto) Lymph # [place] # Seg Neutrophils % Seg Neuts % (Manual) Lymphocytes % (Manual) Monocytes % (Manual) Nucleated RBC % Seg Neutrophils # Man Lymphocytes # (Manual) PT INR APTT POC ABG pH POC ABG pCO2 POC ABG pO2 Sodium Chloride Carbon Dioxide BUN Creatinine Glucose POC Glucose 242 H 235 H 228 H Calcium AST ALT Alkaline Phosphatase Total Creatine Kinase CK-MB (CK-2) Total Protein Albumin 08/10/16 08/10/16 08/10/16 05:31 09:06 13:45 WBC RBC Hgb Hct MCV MCH MCHC RDW Plt Count Lymph % (Auto) [place] % (Auto) Lymph # [place] # Seg Neutrophils % Seg Neuts % (Manual) Lymphocytes % (Manual) Monocytes % (Manual) Nucleated RBC % Seg Neutrophils # Man Lymphocytes # (Manual) PT INR APTT POC ABG pH POC ABG pCO2 POC ABG pO2 Sodium Chloride Carbon Dioxide BUN Creatinine Glucose POC Glucose 201 H 229 H 274 H Calcium AST ALT Alkaline Phosphatase Total Creatine Kinase CK-MB (CK-2) Total Protein Albumin 08/10/16 08/10/16 08/10/16 17:53 21:43 Unknown WBC RBC 3.42 L Hgb 8.6 L Hct 27.5 L MCV 80 L MCH 25 L MCHC RDW 19.1 H Plt Count Lymph % (Auto) [place] % (Auto) Lymph # [place] # Seg Neutrophils % Seg Neuts % (Manual) Lymphocytes % (Manual) Monocytes % (Manual) Nucleated RBC % Seg Neutrophils # Man Lymphocytes # (Manual) PT INR APTT POC ABG pH POC ABG pCO2 POC ABG pO2 Sodium Chloride Carbon Dioxide BUN Creatinine Glucose POC Glucose 284 H 328 H Calcium AST ALT Alkaline Phosphatase Total Creatine Kinase CK-MB (CK-2) Total Protein Albumin 08/10/16 08/11/16 08/11/16 Unknown 01:37 05:39 WBC RBC Hgb Hct MCV MCH MCHC RDW Plt Count Lymph % (Auto) [place] % (Auto) Lymph # [place] # Seg Neutrophils % Seg Neuts % (Manual) Lymphocytes % (Manual) Monocytes % (Manual) Nucleated RBC % Seg Neutrophils # Man Lymphocytes # (Manual) PT INR APTT POC ABG pH POC ABG pCO2 POC ABG pO2 Sodium Chloride Carbon Dioxide BUN 27 H Creatinine 0.6 L Glucose 211 H POC Glucose 340 H 323 H Calcium 7.8 L AST ALT Alkaline Phosphatase Total Creatine Kinase CK-MB (CK-2) Total Protein Albumin 08/11/16 08/11/16 08/11/16 09:58 15:22 17:41 WBC RBC Hgb Hct MCV MCH MCHC RDW Plt Count Lymph % (Auto) [place] % (Auto) Lymph # [place] # Seg Neutrophils % Seg Neuts % (Manual) Lymphocytes % (Manual) Monocytes % (Manual) Nucleated RBC % Seg Neutrophils # Man Lymphocytes # (Manual) PT INR APTT POC ABG pH POC ABG pCO2 POC ABG pO2 Sodium Chloride Carbon Dioxide BUN Creatinine Glucose POC Glucose 295 H 210 H 164 H Calcium AST ALT Alkaline Phosphatase Total Creatine Kinase CK-MB (CK-2) Total Protein Albumin 08/11/16 08/12/16 08/12/16 21:53 01:56 05:15 WBC RBC Hgb Hct MCV MCH MCHC RDW Plt Count Lymph % (Auto) [place] % (Auto) Lymph # [place] # Seg Neutrophils % Seg Neuts % (Manual) Lymphocytes % (Manual) Monocytes % (Manual) Nucleated RBC % Seg Neutrophils # Man Lymphocytes # (Manual) PT INR APTT POC ABG pH POC ABG pCO2 POC ABG pO2 Sodium Chloride Carbon Dioxide BUN Creatinine Glucose POC Glucose 171 H 205 H 156 H Calcium AST ALT Alkaline Phosphatase Total Creatine Kinase CK-MB (CK-2) Total Protein Albumin 08/12/16 08/12/16 08/12/16 10:10 14:33 17:53 WBC RBC Hgb Hct MCV MCH MCHC RDW Plt Count Lymph % (Auto) [place] % (Auto) Lymph # [place] # Seg Neutrophils % Seg Neuts % (Manual) Lymphocytes % (Manual) Monocytes % (Manual) Nucleated RBC % Seg Neutrophils # Man Lymphocytes # (Manual) PT INR APTT POC ABG pH POC ABG pCO2 POC ABG pO2 Sodium Chloride Carbon Dioxide BUN Creatinine Glucose POC Glucose 224 H 245 H 259 H Calcium AST ALT Alkaline Phosphatase Total Creatine Kinase CK-MB (CK-2) Total Protein Albumin 08/12/16 08/13/16 08/13/16 21:56 04:00 04:02 WBC RBC Hgb Hct MCV MCH MCHC RDW Plt Count Lymph % (Auto) [place] % (Auto) Lymph # [place] # Seg Neutrophils % Seg Neuts % (Manual) Lymphocytes % (Manual) Monocytes % (Manual) Nucleated RBC % Seg Neutrophils # Man Lymphocytes # (Manual) PT INR APTT POC ABG pH POC ABG pCO2 POC ABG pO2 Sodium 136 L Chloride 97.2 L Carbon Dioxide BUN 26 H Creatinine 0.6 L Glucose 185 H POC Glucose 229 H 202 H Calcium 7.3 L AST ALT Alkaline Phosphatase Total Creatine Kinase CK-MB (CK-2) Total Protein Albumin 08/13/16 08/13/16 06:47 Unknown WBC RBC 3.53 L Hgb 8.9 L Hct 28.4 L MCV 81 L MCH 25 L MCHC 31 L RDW 19.2 H Plt Count Lymph % (Auto) [place] % (Auto) Lymph # [place] # Seg Neutrophils % Seg Neuts % (Manual) Lymphocytes % (Manual) Monocytes % (Manual) Nucleated RBC % Seg Neutrophils # Man Lymphocytes # (Manual) PT INR APTT POC ABG pH POC ABG pCO2 POC ABG pO2 Sodium Chloride Carbon Dioxide BUN Creatinine Glucose POC Glucose 191 H Calcium AST ALT Alkaline Phosphatase Total Creatine Kinase CK-MB (CK-2) Total Protein Albumin
--- NOTE | 2016-08-13 10:15 | Progress Note ---
Assessment and Plan Assessment and plan: Patient is 76 year-old man with a history of hypertension, diabetes, hyperlipidemia, BPH, was brought to the emergency room because son found him on the floor unresponsive. Patient was intubated in the emergency room. MRI of brain showed b/l acute CVA. Tracheal aspirate growing Pseudomonas Aeruginosa and Escherichia Coli. Failing weaning trial from vent, may need trach. Acute Respiratory failure - still intubated on vent, pulmonary following - Multiple failed weaning attempts - For Tracheostomy and PEG tube placement. 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 Discontinued Meropenem and Acyclovir. I discussed with ID Physician Fever due to Sepsis Prognosis guarded Discussed with one of sons on phone yesterday. All questions and concerns addressed. I also discussed PEG and trach and he is in agreement. History Interval history: Still intubated. Still unable to wean Still having fever Opens eyes Hospitalist Physical - Physical exam Narrative exam: Gen Appearance: intubated, on vent HEENT: normocephalic, atraumatic Neck: no JVD Lungs: clear to auscultation bilaterally, no crackles or wheezes Heart: S1 and S2 regular, no murmurs or gallop Abdomen: Soft, non-tender, non-distended, normal bowel sounds Extremity:No edema, clubbing or cyanosis Neuro : Intubated, sedated - Constitutional Vitals: Temp Pulse Resp BP Pulse Ox 98.7 F 76 18 122/56 99 08/13/16 08:00 08/13/16 09:17 08/13/16 09:17 08/13/16 09:00 08/13/16 09:00 General appearance: Present: no acute distress, well-nourished Results - Labs CBC & Chem 7: 08/13/16 Unknown 08/13/16 04:00 Labs: Laboratory Last Values WBC 9.7 K/mm3 (4.5-11.0) 08/13/16 Unknown RBC 3.53 M/mm3 (3.65-5.03) L 08/13/16 Unknown Hgb 8.9 gm/dl (11.8-15.2) L 08/13/16 Unknown Hct 28.4 % (35.5-45.6) L 08/13/16 Unknown MCV 81 fl (84-94) L 08/13/16 Unknown MCH 25 pg (28-32) L 08/13/16 Unknown MCHC 31 % (32-34) L 08/13/16 Unknown RDW 19.2 % (13.2-15.2) H 08/13/16 Unknown Plt Count 199 K/mm3 (140-440) 08/13/16 Unknown Lymph % (Auto) Collection Agent 08/08/16 07:40 [place] % (Auto) Collection Agent 08/08/16 07:40 Eos % (Auto) Collection Agent 08/08/16 07:40 Baso % (Auto) Collection Agent 08/08/16 07:40 Lymph # Collection Agent 08/08/16 07:40 [place] # Collection Agent 08/08/16 07:40 Eos # Collection Agent 08/08/16 07:40 Baso # Collection Agent 08/08/16 07:40 Add Manual Diff Complete 08/08/16 07:40 Total Counted 100 08/08/16 07:40 Seg Neutrophils % Collection Agent 08/08/16 07:40 Seg Neuts % (Manual) 68.0 % (40.0-70.0) 08/08/16 07:40 Band Neutrophils % 2.0 % 08/08/16 07:40 Lymphocytes % (Manual) 25.0 % (13.4-35.0) 08/08/16 07:40 Reactive Lymphs % (Man) 0 % 08/08/16 07:40 Monocytes % (Manual) 3.0 % (0.0-7.3) 08/08/16 07:40 Eosinophils % (Manual) 2.0 % (0.0-4.3) 08/08/16 07:40 Basophils % (Manual) 0 % (0.0-1.8) 08/08/16 07:40 Metamyelocytes % 0 % 08/08/16 07:40 Myelocytes % 0 % 08/08/16 07:40 Promyelocytes % 0 % 08/08/16 07:40 Blast Cells % 0 % 08/08/16 07:40 Nucleated RBC % 2.0 % (0.0-0.9) H 08/08/16 07:40 Seg Neutrophils # Collection Agent 08/08/16 07:40 Seg Neutrophils # Man 5.9 K/mm3 (1.8-7.7) 08/08/16 07:40 Band Neutrophils # 0.2 K/mm3 08/08/16 07:40 Lymphocytes # (Manual) 2.2 K/mm3 (1.2-5.4) 08/08/16 07:40 Abs React Lymphs (Man) 0.0 K/mm3 08/08/16 07:40 Monocytes # (Manual) 0.3 K/mm3 (0.0-0.8) 08/08/16 07:40 Eosinophils # (Manual) 0.2 K/mm3 (0.0-0.4) 08/08/16 07:40 Basophils # (Manual) 0.0 K/mm3 (0.0-0.1) 08/08/16 07:40 Metamyelocytes # 0.0 K/mm3 08/08/16 07:40 Myelocytes # 0.0 K/mm3 08/08/16 07:40 Promyelocytes # 0.0 K/mm3 08/08/16 07:40 Blast Cells # 0.0 K/mm3 08/08/16 07:40 WBC Morphology Not Reportable 08/08/16 07:40 Hypersegmented Neuts Not Reportable 08/08/16 07:40 Hyposegmented Neuts Not Reportable 08/08/16 07:40 Hypogranular Neuts Not Reportable 08/08/16 07:40 Smudge Cells Not Reportable 08/08/16 07:40 Toxic Granulation Not Reportable 08/08/16 07:40 Toxic Vacuolation Not Reportable 08/08/16 07:40 Dohle Bodies Not Reportable 08/08/16 07:40 Pelger-Huet Anomaly Not Reportable 08/08/16 07:40 Leta Rods Not Reportable 08/08/16 07:40 Platelet Estimate Consistent w auto 08/08/16 07:40 Clumped Platelets Not Reportable 08/08/16 07:40 Plt Clumps, EDTA Not Reportable 08/08/16 07:40 Large Platelets Not Reportable 08/08/16 07:40 Giant Platelets Not Reportable 08/08/16 07:40 Platelet Satelliting Not Reportable 08/08/16 07:40 Plt Morphology Comment Not Reportable 08/08/16 07:40 RBC Morphology Not Reportable 08/08/16 07:40 Dimorphic RBCs Not Reportable 08/08/16 07:40 Polychromasia Few 08/08/16 07:40 Hypochromasia Few 08/08/16 07:40 Poikilocytosis Not Reportable 08/08/16 07:40 Anisocytosis 1+ 08/08/16 07:40 Microcytosis Not Reportable 08/08/16 07:40 Macrocytosis Few 08/08/16 07:40 Spherocytes Not Reportable 08/08/16 07:40 Pappenheimer Bodies Not Reportable 08/08/16 07:40 Sickle Cells Not Reportable 08/08/16 07:40 Target Cells Few 08/08/16 07:40 Tear Drop Cells Few 08/08/16 07:40 Ovalocytes Not Reportable 08/08/16 07:40 Helmet Cells Not Reportable 08/08/16 07:40 Das-[place] Bodies Not Reportable 08/08/16 07:40 [place] Rings Not Reportable 08/08/16 07:40 Marianela Cells Not Reportable 08/08/16 07:40 Bite Cells Not Reportable 08/08/16 07:40 Crenated Cell Not Reportable 08/08/16 07:40 Elliptocytes Not Reportable 08/08/16 07:40 Acanthocytes (Spur) Not Reportable 08/08/16 07:40 Rouleaux Not Reportable 08/08/16 07:40 Hemoglobin C Crystals Not Reportable 08/08/16 07:40 Schistocytes Not Reportable 08/08/16 07:40 Malaria parasites Not Reportable 08/08/16 07:40 Reece Bodies Not Reportable 08/08/16 07:40 Hem Pathologist Commnt No 08/08/16 07:40 PT 17.2 Sec. (12.2-14.9) H 08/07/16 07:30 INR 1.41 (0.87-1.13) H 08/07/16 07:30 APTT 36.5 Sec. (24.2-36.6) 08/07/16 07:30 POC ABG pH 7.493 (7.35-7.45) H 08/09/16 06:00 POC ABG pCO2 38.8 (35-45) 08/09/16 06:00 POC ABG pO2 83 (80-105) 08/09/16 06:00 POC ABG HCO3 29.8 08/09/16 06:00 POC ABG Total CO2 31 08/09/16 06:00 POC ABG O2 Sat 97 08/09/16 06:00 POC ABG Base Excess 6 08/09/16 06:00 VBG pH 7.447 (7.320-7.420) H 07/31/16 00:13 FiO2 30 % 08/09/16 06:00 Sodium 136 mmol/L (137-145) L 08/13/16 04:00 Potassium 4.7 mmol/L (3.6-5.0) 08/13/16 04:00 Chloride 97.2 mmol/L (98-107) L 08/13/16 04:00 Carbon Dioxide 27 mmol/L (22-30) 08/13/16 04:00 Anion Gap 17 mmol/L 08/13/16 04:00 BUN 26 mg/dL (9-20) H 08/13/16 04:00 Creatinine 0.6 mg/dL (0.8-1.5) L 08/13/16 04:00 Estimated GFR > 60 ml/min 08/13/16 04:00 BUN/Creatinine Ratio 43.33 % 08/13/16 04:00 Glucose 185 mg/dL (75-100) H 08/13/16 04:00 POC Glucose 221 (70-105) H 08/13/16 09:53 Lactic Acid 1.00 mmol/L (0.7-2.0) 07/31/16 00:13 Calcium 7.3 mg/dL (8.4-10.2) L 08/13/16 04:00 Total Bilirubin 0.20 mg/dL (0.1-1.2) 08/08/16 07:40 AST 77 units/L (5-40) H 08/08/16 07:40 ALT 71 units/L (7-56) H 08/08/16 07:40 Alkaline Phosphatase 658 units/L (35-129) H 08/08/16 07:40 Ammonia 49.0 umol/L (25-60) 07/31/16 00:13 Total Creatine Kinase 865 units/L (55-170) H 07/31/16 08:39 CK-MB (CK-2) 5.9 ng/mL (0.0-4.0) H 07/31/16 08:39 CK-MB (CK-2) Rel Index 0.6 (0-4) 07/31/16 08:39 Troponin T 0.011 ng/mL (0.00-0.029) 07/31/16 08:39 Total Protein 5.0 g/dL (6.3-8.2) L 08/08/16 07:40 Albumin 1.6 g/dL (3.9-5) L 08/08/16 07:40 Albumin/Globulin Ratio 0.5 % 08/08/16 07:40 TSH 1.420 mlU/mL (0.270-4.200) 08/04/16 09:50 CSF Appearance Clear 08/04/16 11:54 CSF Color Colorless 08/04/16 11:54 CSF WBC 2 /mm3 (1-10) 08/04/16 11:54 CSF RBC 30 /mm3 (0-0) 08/04/16 11:54 CSF Seg Neutrophils 0 % (0-6) 08/04/16 11:54 CSF Lymphocytes % 66.7 % (40-80) 08/04/16 11:54 CSF Reactive Lymphs 0 % 08/04/16 11:54 CSF Monocytes % 33.3 % (15-45) 08/04/16 11:54 CSF Eosinophils % 0 % 08/04/16 11:54 CSF Basophils 0 % 08/04/16 11:54 CSF Pathologist Review C 08/04/16 11:54 CSF Glucose 90 mg/dL 08/04/16 11:54 CSF Total Protein 93 mg/dL 08/04/16 11:54 CSF VDRL Nonreactive (Nonreactive) 08/04/16 11:54 Salicylates < 0.3 mg/dL (2.8-20.0) L 07/31/16 00:02 Acetaminophen < 15.0 ug/mL (10.0-30.0) 07/31/16 00:02 Miscellaneous Test Flexitest 1 08/04/16 11:54 Blood Type O POSITIVE 07/30/16 23:40 MARK Antibody Screen Negative 07/30/16 23:40
[2016-08-13] MEDS: PEPCID PO SCH ×2 (10:20→21:28)
[2016-08-13] MEDS: ASPIRIN PO SCH (10:20)
[2016-08-13] MEDS: LEVEMIR SUB-Q SCH (10:51)
--- NOTE | 2016-08-13 11:11 | Consultation ---
History of Present Illness Consult date: 08/13/16 Reason for consult: other (Respiratory failure) - History of present illness History of present illness: 76 y/o gentleman who was admitted for alter mental status and respiratory arrest. He has been intubated since then and not weanable per pulmonary. We were consulted to place a tracheostomy and PEG tube for joint terminal attack controller ventilator management and custodial enteral access. Past History Past Medical History: diabetes, hypertension, other (AMS limits direct hx) Social history: other Family history: other (AMS limits direct hx) Medications and Allergies Allergies Allergy/AdvReac Type Severity Reaction Status Date / Time No Known Allergies Allergy Verified 07/31/16 02:37 Home Medications Medication Instructions Recorded Confirmed Last Taken Type Aspirin [Aspirin BABY CHEW TAB] 1 tab PO DAILY 07/31/16 07/31/16 Unknown History Carvedilol [Coreg] 25 mg PO BID 07/31/16 07/31/16 Unknown History Hydrochlorothiazide [HCTZ] 25 mg PO QDAY 07/31/16 07/31/16 Unknown History Lisinopril [Zestril TAB] 1 tab PO DAILY 07/31/16 07/31/16 Unknown History Pravastatin (Nf) [Pravachol] 40 mg PO QHS 07/31/16 07/31/16 Unknown History Tamsulosin [Flomax] 1 cap PO DAILY 07/31/16 07/31/16 Unknown History amLODIPine [Norvasc] 10 mg PO DAILY 07/31/16 07/31/16 Unknown History hydrALAZINE [Apresoline] 25 mg PO Q8HR 07/31/16 07/31/16 Unknown History Active Meds: Active Medications Acetaminophen (Tylenol) 650 mg FEEDTUBE Q6H PRN PRN Reason: Pain, Mild (1-3) Last Admin: 08/10/16 02:27 Dose: 650 mg Lipase/Protease/Amylase (Pancreaze Dr 10,500 Unit) 1 each FEEDTUBE PRN PRN PRN Reason: For Clogged Feeding Tube Aspirin (Aspirin) 325 mg PO QDAY [facility] Last Admin: 08/13/16 10:20 Dose: 325 mg Atorvastatin Calcium (Lipitor) 40 mg PO QHS [facility] Last Admin: 08/12/16 23:15 Dose: 40 mg Dextrose (D50w (25gm)) 50 ml IV PRN PRN PRN Reason: Hypoglycemia Enoxaparin Sodium (Lovenox) 40 mg SUB-Q QDAY@1000 [facility] Last Admin: 08/06/16 09:31 Dose: 40 mg Famotidine (Pepcid) 20 mg PO BID [facility] Last Admin: 08/13/16 10:20 Dose: 20 mg Hydrophilic Ointment (Vaseline Lip Therapy) 1 applic TP Q2HR PRN PRN Reason: Dry Lips Last Admin: 08/12/16 23:22 Dose: 1 applic Sodium Chloride (Nacl 0.45% 1000 Ml) 1,000 mls @ 84 mls/hr IV DIRECT [facility] Last Admin: 08/08/16 11:59 Dose: 84 mls/hr Insulin Detemir (Levemir) 35 units SUB-Q DAILY [facility] Last Admin: 08/13/16 10:51 Dose: 35 units Insulin Human Regular (Novolin R) 0 units SUB-Q Q4HR [facility] PRN Reason: Protocol Last Admin: 08/13/16 10:21 Dose: 3 units Multi-Ingred Cream/Lotion/Oil/Oint (Artificial Tears Ophth Oint) 1 applic OU Q4HR PRN PRN Reason: Dry Eye(s) Last Admin: 08/12/16 23:22 Dose: 1 applic Ondansetron HCl (Zofran) 4 mg IV Q8H PRN PRN Reason: N/V unrelieved by Reglan Simple Syrup (Simple Syrup) 15 ml FEEDTUBE PRN PRN PRN Reason: Hypoglycemia Simple Syrup (Simple Syrup) 30 ml FEEDTUBE PRN PRN PRN Reason: Hypoglycemia Sodium Bicarbonate (Sodium Bicarbonate) 325 mg FEEDTUBE PRN PRN PRN Reason: For Clogged Feeding Tube Sodium Chloride (Nacl 0.9% 500 Ml) 1 ml IV DIRECT [facility]IA Exam Vital Signs Pulse Ox 90 07/30/16 23:14 - General physical appearance Positive: no distress - Neck Positive: trachea midline, no venous distension - Respiratory Positive: normal expansion - Cardiovascular Rhythm: regular - Extremities Extremities: no ischemia - Abdomen Abdomen: Present: soft. Absent: surgical scars - Neurologic Neurologic: other (does not follow commands) Results - Labs 08/13/16 Unknown 08/13/16 04:00 Abnormal lab results 08/12/16 08/12/16 08/12/16 Range/Units 10:10 14:33 17:53 RBC (3.65-5.03) M/mm3 Hgb (11.8-15.2) gm/dl Hct (35.5-45.6) % MCV (84-94) fl MCH (28-32) pg MCHC (32-34) % RDW (13.2-15.2) % Sodium (137-145) mmol/L Chloride (98-107) mmol/L BUN (9-20) mg/dL Creatinine (0.8-1.5) mg/dL Glucose (75-100) mg/dL POC Glucose 224 H 245 H 259 H (70-105) Calcium (8.4-10.2) mg/dL 08/12/16 08/13/16 08/13/16 Range/Units 21:56 04:00 04:02 RBC (3.65-5.03) M/mm3 Hgb (11.8-15.2) gm/dl Hct (35.5-45.6) % MCV (84-94) fl MCH (28-32) pg MCHC (32-34) % RDW (13.2-15.2) % Sodium 136 L (137-145) mmol/L Chloride 97.2 L (98-107) mmol/L BUN 26 H (9-20) mg/dL Creatinine 0.6 L (0.8-1.5) mg/dL Glucose 185 H (75-100) mg/dL POC Glucose 229 H 202 H (70-105) Calcium 7.3 L (8.4-10.2) mg/dL 08/13/16 08/13/16 08/13/16 Range/Units 06:47 09:53 Unknown RBC 3.53 L (3.65-5.03) M/mm3 Hgb 8.9 L (11.8-15.2) gm/dl Hct 28.4 L (35.5-45.6) % MCV 81 L (84-94) fl MCH 25 L (28-32) pg MCHC 31 L (32-34) % RDW 19.2 H (13.2-15.2) % Sodium (137-145) mmol/L Chloride (98-107) mmol/L BUN (9-20) mg/dL Creatinine (0.8-1.5) mg/dL Glucose (75-100) mg/dL POC Glucose 191 H 221 H (70-105) Calcium (8.4-10.2) mg/dL Diabetes panel 08/13/16 Range/Units 04:00 Sodium 136 L (137-145) mmol/L Potassium 4.7 (3.6-5.0) mmol/L Chloride 97.2 L (98-107) mmol/L Carbon Dioxide 27 (22-30) mmol/L BUN 26 H (9-20) mg/dL Creatinine 0.6 L (0.8-1.5) mg/dL Glucose 185 H (75-100) mg/dL Calcium 7.3 L (8.4-10.2) mg/dL Calcium panel 08/13/16 Range/Units 04:00 Calcium 7.3 L (8.4-10.2) mg/dL Pituitary panel 08/13/16 Range/Units 04:00 Sodium 136 L (137-145) mmol/L Potassium 4.7 (3.6-5.0) mmol/L Chloride 97.2 L (98-107) mmol/L Carbon Dioxide 27 (22-30) mmol/L BUN 26 H (9-20) mg/dL Creatinine 0.6 L (0.8-1.5) mg/dL Glucose 185 H (75-100) mg/dL Calcium 7.3 L (8.4-10.2) mg/dL Adrenal panel 08/13/16 Range/Units 04:00 Sodium 136 L (137-145) mmol/L Potassium 4.7 (3.6-5.0) mmol/L Chloride 97.2 L (98-107) mmol/L Carbon Dioxide 27 (22-30) mmol/L BUN 26 H (9-20) mg/dL Creatinine 0.6 L (0.8-1.5) mg/dL Glucose 185 H (75-100) mg/dL Calcium 7.3 L (8.4-10.2) mg/dL Assessment and Plan I discussed tracheostomy and PEG with two sons. Risks, benefits and alternatives were discussed and include but are not limited to bleeding, infection, injury to adjacent organs, loss of airway which can result in , premature dislodgement of tube which could results in the need for more surgery. Their questions were answered until they verbalized that they understood and did not have any more questions. They wish us to proceed with doing those two procedures. I will let the scheduler conveyor know to set a bedside Trach/PEG up as soon as there is an opening.
[2016-08-14] MEDS: LEVEMIR SUB-Q SCH (09:51)
[2016-08-14] MEDS: ASPIRIN PO SCH (09:52)
[2016-08-14] MEDS: PEPCID PO SCH ×2 (09:52→22:15)
--- NOTE | 2016-08-14 10:25 | Progress Note ---
Assessment and Plan Assessment and plan: Patient is 76 year-old man with a history of hypertension, diabetes, hyperlipidemia, BPH, was brought to the emergency room because son found him on the floor unresponsive. Patient was intubated in the emergency room. MRI of brain showed bilateral acute ischemic stroke. Tracheal aspirate growing Pseudomonas Aeruginosa and Escherichia Coli. Failing weaning trial from vent. Plan is for PEG and Trach this week. Acute Respiratory failure - still intubated on vent, pulmonary following - Multiple failed weaning attempts - For Tracheostomy and PEG tube placement. 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 ID Physician following Fever due to Sepsis Prognosis guarded Discussed with sonJose Elias on 08/12/16 on phone. All questions and concerns addressed. I also discussed PEG and trach and he is in agreement. Discussed with brother Jasper Gray, on phone today. History Interval history: Still intubated. Still unable to wean Still having fever Opens eyes Hospitalist Physical - Physical exam Narrative exam: Gen Appearance: intubated, on vent HEENT: normocephalic, atraumatic Neck: no JVD Lungs: clear to auscultation bilaterally, no crackles or wheezes Heart: S1 and S2 regular, no murmurs or gallop Abdomen: Soft, non-tender, non-distended, normal bowel sounds Extremity:No edema, clubbing or cyanosis Neuro : Intubated, sedated - Constitutional Vitals: Temp Pulse Resp BP Pulse Ox 99.6 F 80 20 136/56 96 08/14/16 08:00 08/14/16 09:43 08/14/16 09:43 08/14/16 09:43 08/14/16 09:43 General appearance: Present: no acute distress, well-nourished Results - Labs CBC & Chem 7: 08/13/16 Unknown 08/13/16 04:00 Labs: Laboratory Last Values WBC 9.7 K/mm3 (4.5-11.0) 08/13/16 Unknown RBC 3.53 M/mm3 (3.65-5.03) L 08/13/16 Unknown Hgb 8.9 gm/dl (11.8-15.2) L 08/13/16 Unknown Hct 28.4 % (35.5-45.6) L 08/13/16 Unknown MCV 81 fl (84-94) L 08/13/16 Unknown MCH 25 pg (28-32) L 08/13/16 Unknown MCHC 31 % (32-34) L 08/13/16 Unknown RDW 19.2 % (13.2-15.2) H 08/13/16 Unknown Plt Count 199 K/mm3 (140-440) 08/13/16 Unknown Lymph % (Auto) Motor Operator 08/08/16 07:40 [place] % (Auto) Motor Operator 08/08/16 07:40 Eos % (Auto) Motor Operator 08/08/16 07:40 Baso % (Auto) Motor Operator 08/08/16 07:40 Lymph # Motor Operator 08/08/16 07:40 [place] # Motor Operator 08/08/16 07:40 Eos # Motor Operator 08/08/16 07:40 Baso # Motor Operator 08/08/16 07:40 Add Manual Diff Complete 08/08/16 07:40 Total Counted 100 08/08/16 07:40 Seg Neutrophils % Motor Operator 08/08/16 07:40 Seg Neuts % (Manual) 68.0 % (40.0-70.0) 08/08/16 07:40 Band Neutrophils % 2.0 % 08/08/16 07:40 Lymphocytes % (Manual) 25.0 % (13.4-35.0) 08/08/16 07:40 Reactive Lymphs % (Man) 0 % 08/08/16 07:40 Monocytes % (Manual) 3.0 % (0.0-7.3) 08/08/16 07:40 Eosinophils % (Manual) 2.0 % (0.0-4.3) 08/08/16 07:40 Basophils % (Manual) 0 % (0.0-1.8) 08/08/16 07:40 Metamyelocytes % 0 % 08/08/16 07:40 Myelocytes % 0 % 08/08/16 07:40 Promyelocytes % 0 % 08/08/16 07:40 Blast Cells % 0 % 08/08/16 07:40 Nucleated RBC % 2.0 % (0.0-0.9) H 08/08/16 07:40 Seg Neutrophils # Motor Operator 08/08/16 07:40 Seg Neutrophils # Man 5.9 K/mm3 (1.8-7.7) 08/08/16 07:40 Band Neutrophils # 0.2 K/mm3 08/08/16 07:40 Lymphocytes # (Manual) 2.2 K/mm3 (1.2-5.4) 08/08/16 07:40 Abs React Lymphs (Man) 0.0 K/mm3 08/08/16 07:40 Monocytes # (Manual) 0.3 K/mm3 (0.0-0.8) 08/08/16 07:40 Eosinophils # (Manual) 0.2 K/mm3 (0.0-0.4) 08/08/16 07:40 Basophils # (Manual) 0.0 K/mm3 (0.0-0.1) 08/08/16 07:40 Metamyelocytes # 0.0 K/mm3 08/08/16 07:40 Myelocytes # 0.0 K/mm3 08/08/16 07:40 Promyelocytes # 0.0 K/mm3 08/08/16 07:40 Blast Cells # 0.0 K/mm3 08/08/16 07:40 WBC Morphology Not Reportable 08/08/16 07:40 Hypersegmented Neuts Not Reportable 08/08/16 07:40 Hyposegmented Neuts Not Reportable 08/08/16 07:40 Hypogranular Neuts Not Reportable 08/08/16 07:40 Smudge Cells Not Reportable 08/08/16 07:40 Toxic Granulation Not Reportable 08/08/16 07:40 Toxic Vacuolation Not Reportable 08/08/16 07:40 Dohle Bodies Not Reportable 08/08/16 07:40 Pelger-Huet Anomaly Not Reportable 08/08/16 07:40 Leta Rods Not Reportable 08/08/16 07:40 Platelet Estimate Consistent w auto 08/08/16 07:40 Clumped Platelets Not Reportable 08/08/16 07:40 Plt Clumps, EDTA Not Reportable 08/08/16 07:40 Large Platelets Not Reportable 08/08/16 07:40 Giant Platelets Not Reportable 08/08/16 07:40 Platelet Satelliting Not Reportable 08/08/16 07:40 Plt Morphology Comment Not Reportable 08/08/16 07:40 RBC Morphology Not Reportable 08/08/16 07:40 Dimorphic RBCs Not Reportable 08/08/16 07:40 Polychromasia Few 08/08/16 07:40 Hypochromasia Few 08/08/16 07:40 Poikilocytosis Not Reportable 08/08/16 07:40 Anisocytosis 1+ 08/08/16 07:40 Microcytosis Not Reportable 08/08/16 07:40 Macrocytosis Few 08/08/16 07:40 Spherocytes Not Reportable 08/08/16 07:40 Pappenheimer Bodies Not Reportable 08/08/16 07:40 Sickle Cells Not Reportable 08/08/16 07:40 Target Cells Few 08/08/16 07:40 Tear Drop Cells Few 08/08/16 07:40 Ovalocytes Not Reportable 08/08/16 07:40 Helmet Cells Not Reportable 08/08/16 07:40 Das-[place] Bodies Not Reportable 08/08/16 07:40 [place] Rings Not Reportable 08/08/16 07:40 Marianela Cells Not Reportable 08/08/16 07:40 Bite Cells Not Reportable 08/08/16 07:40 Crenated Cell Not Reportable 08/08/16 07:40 Elliptocytes Not Reportable 08/08/16 07:40 Acanthocytes (Spur) Not Reportable 08/08/16 07:40 Rouleaux Not Reportable 08/08/16 07:40 Hemoglobin C Crystals Not Reportable 08/08/16 07:40 Schistocytes Not Reportable 08/08/16 07:40 Malaria parasites Not Reportable 08/08/16 07:40 Reece Bodies Not Reportable 08/08/16 07:40 Hem Pathologist Commnt No 08/08/16 07:40 PT 17.2 Sec. (12.2-14.9) H 08/07/16 07:30 INR 1.41 (0.87-1.13) H 08/07/16 07:30 APTT 36.5 Sec. (24.2-36.6) 08/07/16 07:30 POC ABG pH 7.493 (7.35-7.45) H 08/09/16 06:00 POC ABG pCO2 38.8 (35-45) 08/09/16 06:00 POC ABG pO2 83 (80-105) 08/09/16 06:00 POC ABG HCO3 29.8 08/09/16 06:00 POC ABG Total CO2 31 08/09/16 06:00 POC ABG O2 Sat 97 08/09/16 06:00 POC ABG Base Excess 6 08/09/16 06:00 VBG pH 7.447 (7.320-7.420) H 07/31/16 00:13 FiO2 30 % 08/09/16 06:00 Sodium 136 mmol/L (137-145) L 08/13/16 04:00 Potassium 4.7 mmol/L (3.6-5.0) 08/13/16 04:00 Chloride 97.2 mmol/L (98-107) L 08/13/16 04:00 Carbon Dioxide 27 mmol/L (22-30) 08/13/16 04:00 Anion Gap 17 mmol/L 08/13/16 04:00 BUN 26 mg/dL (9-20) H 08/13/16 04:00 Creatinine 0.6 mg/dL (0.8-1.5) L 08/13/16 04:00 Estimated GFR > 60 ml/min 08/13/16 04:00 BUN/Creatinine Ratio 43.33 % 08/13/16 04:00 Glucose 185 mg/dL (75-100) H 08/13/16 04:00 POC Glucose 233 (70-105) H 08/14/16 08:57 Lactic Acid 1.00 mmol/L (0.7-2.0) 07/31/16 00:13 Calcium 7.3 mg/dL (8.4-10.2) L 08/13/16 04:00 Total Bilirubin 0.20 mg/dL (0.1-1.2) 08/08/16 07:40 AST 77 units/L (5-40) H 08/08/16 07:40 ALT 71 units/L (7-56) H 08/08/16 07:40 Alkaline Phosphatase 658 units/L (35-129) H 08/08/16 07:40 Ammonia 49.0 umol/L (25-60) 07/31/16 00:13 Total Creatine Kinase 865 units/L (55-170) H 07/31/16 08:39 CK-MB (CK-2) 5.9 ng/mL (0.0-4.0) H 07/31/16 08:39 CK-MB (CK-2) Rel Index 0.6 (0-4) 07/31/16 08:39 Troponin T 0.011 ng/mL (0.00-0.029) 07/31/16 08:39 Total Protein 5.0 g/dL (6.3-8.2) L 08/08/16 07:40 Albumin 1.6 g/dL (3.9-5) L 08/08/16 07:40 Albumin/Globulin Ratio 0.5 % 08/08/16 07:40 TSH 1.420 mlU/mL (0.270-4.200) 08/04/16 09:50 CSF Appearance Clear 08/04/16 11:54 CSF Color Colorless 08/04/16 11:54 CSF WBC 2 /mm3 (1-10) 08/04/16 11:54 CSF RBC 30 /mm3 (0-0) 08/04/16 11:54 CSF Seg Neutrophils 0 % (0-6) 08/04/16 11:54 CSF Lymphocytes % 66.7 % (40-80) 08/04/16 11:54 CSF Reactive Lymphs 0 % 08/04/16 11:54 CSF Monocytes % 33.3 % (15-45) 08/04/16 11:54 CSF Eosinophils % 0 % 08/04/16 11:54 CSF Basophils 0 % 08/04/16 11:54 CSF Pathologist Review C 08/04/16 11:54 CSF Glucose 90 mg/dL 08/04/16 11:54 CSF Total Protein 93 mg/dL 08/04/16 11:54 CSF VDRL Nonreactive (Nonreactive) 08/04/16 11:54 Salicylates < 0.3 mg/dL (2.8-20.0) L 07/31/16 00:02 Acetaminophen < 15.0 ug/mL (10.0-30.0) 07/31/16 00:02 Miscellaneous Test Flexitest 1 08/04/16 11:54 Blood Type O POSITIVE 07/30/16 23:40 MARK Antibody Screen Negative 07/30/16 23:40
[2016-08-14 10:56] LABS: ISTAT Base Excess 3; ISTAT HCO3 26.9; ISTAT PCO2 39.5 (35-45); ISTAT PH 7.441 (7.35-7.45); ISTAT PO2 85 (80-105); ISTAT SO2 97; ISTAT TCO2 28
--- NOTE | 2016-08-14 11:54 | Progress Note ---
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 1. Not safely weanable without trach. Finally spoke with son as I had the wrong number. Ok with trach and peg. Consulted [facility]. (Jose Elias) [phone]. This is the correct number now. Scheduling this week. 2. Continue Daily PSV trials and AC rest at night 3. Neuro back on Sunday, will ask if any further recs or imaging needed. 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 Infectious etiologies have been ruled out. 4. Blood sugars better with increased levemir. 5. Will continue to follow along with you CCT 31 minutes. Subjective Date of service: 08/14/16 Principal diagnosis: acute respiratory failure Interval history: No acute events. Scheduled for trach and peg some time this week. Neuro has re -evaluated this morning. Objective Vital Signs - 12hr 08/14/16 08/14/16 08/14/16 00:00 01:00 02:00 Temperature Pulse Rate 88 96 H 90 Respiratory 22 16 14 Rate Blood Pressure 124/63 131/65 128/70 O2 Sat by Pulse 96 92 92 Oximetry 08/14/16 08/14/16 08/14/16 03:00 03:16 03:37 Temperature 100.8 F H Pulse Rate 95 H Respiratory 16 19 Rate Blood Pressure 137/66 O2 Sat by Pulse 96 99 Oximetry 08/14/16 08/14/16 08/14/16 03:39 03:42 04:00 Temperature 100.9 F H Pulse Rate 93 H 92 H Respiratory 22 Rate Blood Pressure 137/66 137/66 O2 Sat by Pulse 97 95 Oximetry 08/14/16 08/14/16 08/14/16 05:00 06:00 08:00 Temperature 99.6 F Pulse Rate 98 H 100 H Respiratory 21 25 H Rate Blood Pressure 136/63 143/67 O2 Sat by Pulse 99 98 Oximetry 08/14/16 08/14/16 08/14/16 08:21 08:34 09:43 Temperature Pulse Rate 81 91 H 80 Respiratory 25 H 19 20 Rate Blood Pressure 135/49 134/59 136/56 O2 Sat by Pulse 97 99 96 Oximetry 08/14/16 11:16 Temperature Pulse Rate 86 Respiratory 19 Rate Blood Pressure 113/49 O2 Sat by Pulse 98 Oximetry Constitutional: no acute distress, other (intubated, ) Eyes: other (pupils are equal, very slowly reactive) ENT: other (orally intubated) Neck: supple, no JVD Ascultation: Bilateral: clear, diminished breath sounds Gastrointestinal: normoactive bowel sounds, non-distended Integumentary: normal Extremities: no cyanosis, no edema Neurologic: other (no changes) CBC and BMP: 08/13/16 Unknown 08/13/16 04:00 ABG, PT/INR, D-dimer: ABG POC ABG pH 7.441 (7.35-7.45) 08/14/16 09:52 POC ABG pCO2 39.5 (35-45) 08/14/16 09:52 POC ABG pO2 85 (80-105) 08/14/16 09:52 POC ABG HCO3 26.9 08/14/16 09:52 POC ABG Total CO2 28 08/14/16 09:52 POC ABG O2 Sat 97 08/14/16 09:52 PT/INR, D-dimer PT 17.2 Sec. (12.2-14.9) H 08/07/16 07:30 INR 1.41 (0.87-1.13) H 08/07/16 07:30 Abnormal lab findings: Abnormal Labs 07/31/16 07/31/16 07/31/16 08:39 10:07 12:07 WBC RBC Hgb Hct MCV MCH MCHC RDW Plt Count Lymph % (Auto) [place] % (Auto) Lymph # [place] # Seg Neutrophils % Seg Neuts % (Manual) Lymphocytes % (Manual) Monocytes % (Manual) Nucleated RBC % Seg Neutrophils # Man Lymphocytes # (Manual) PT INR APTT POC ABG pH POC ABG pCO2 POC ABG pO2 Sodium Chloride Carbon Dioxide BUN Creatinine Glucose POC Glucose 205 H 188 H Calcium AST ALT Alkaline Phosphatase Total Creatine Kinase 865 H CK-MB (CK-2) 5.9 H Total Protein Albumin 07/31/16 07/31/16 07/31/16 16:19 19:58 23:53 WBC RBC Hgb Hct MCV MCH MCHC RDW Plt Count Lymph % (Auto) [place] % (Auto) Lymph # [place] # Seg Neutrophils % Seg Neuts % (Manual) Lymphocytes % (Manual) Monocytes % (Manual) Nucleated RBC % Seg Neutrophils # Man Lymphocytes # (Manual) PT INR APTT POC ABG pH POC ABG pCO2 POC ABG pO2 Sodium Chloride Carbon Dioxide BUN Creatinine Glucose POC Glucose 195 H 147 H 160 H Calcium AST ALT Alkaline Phosphatase Total Creatine Kinase CK-MB (CK-2) Total Protein Albumin 08/01/16 08/01/16 08/01/16 04:18 04:42 07:45 WBC 14.8 H RBC Hgb 10.7 L Hct 34.9 L MCV 82 L MCH 25 L MCHC 31 L RDW 19.1 H Plt Count Lymph % (Auto) [place] % (Auto) Lymph # [place] # Seg Neutrophils % Seg Neuts % (Manual) 80.0 H Lymphocytes % (Manual) 12.0 L Monocytes % (Manual) Nucleated RBC % Seg Neutrophils # Man 11.8 H Lymphocytes # (Manual) PT INR APTT POC ABG pH POC ABG pCO2 33.4 L POC ABG pO2 66 L Sodium Chloride Carbon Dioxide BUN Creatinine Glucose POC Glucose 225 H Calcium AST ALT Alkaline Phosphatase Total Creatine Kinase CK-MB (CK-2) Total Protein Albumin 08/01/16 08/01/16 08/01/16 07:45 10:09 10:59 WBC RBC Hgb Hct MCV MCH MCHC RDW Plt Count Lymph % (Auto) [place] % (Auto) Lymph # [place] # Seg Neutrophils % Seg Neuts % (Manual) Lymphocytes % (Manual) Monocytes % (Manual) Nucleated RBC % Seg Neutrophils # Man Lymphocytes # (Manual) PT INR APTT POC ABG pH POC ABG pCO2 POC ABG pO2 Sodium Chloride Carbon Dioxide BUN 29 H Creatinine Glucose 233 H POC Glucose 266 H 318 H Calcium 7.6 L AST ALT Alkaline Phosphatase Total Creatine Kinase CK-MB (CK-2) Total Protein Albumin 08/01/16 08/01/16 08/01/16 14:24 17:56 21:21 WBC RBC Hgb Hct MCV MCH MCHC RDW Plt Count Lymph % (Auto) [place] % (Auto) Lymph # [place] # Seg Neutrophils % Seg Neuts % (Manual) Lymphocytes % (Manual) Monocytes % (Manual) Nucleated RBC % Seg Neutrophils # Man Lymphocytes # (Manual) PT INR APTT POC ABG pH POC ABG pCO2 POC ABG pO2 Sodium Chloride Carbon Dioxide BUN Creatinine Glucose POC Glucose 298 H 239 H 203 H Calcium AST ALT Alkaline Phosphatase Total Creatine Kinase CK-MB (CK-2) Total Protein Albumin 08/02/16 08/02/16 08/02/16 02:05 03:55 05:38 WBC RBC Hgb Hct MCV MCH MCHC RDW Plt Count Lymph % (Auto) [place] % (Auto) Lymph # [place] # Seg Neutrophils % Seg Neuts % (Manual) Lymphocytes % (Manual) Monocytes % (Manual) Nucleated RBC % Seg Neutrophils # Man Lymphocytes # (Manual) PT INR APTT POC ABG pH 7.460 H POC ABG pCO2 31.2 L POC ABG pO2 71 L Sodium Chloride Carbon Dioxide BUN Creatinine Glucose POC Glucose 248 H 253 H Calcium AST ALT Alkaline Phosphatase Total Creatine Kinase CK-MB (CK-2) Total Protein Albumin 08/02/16 08/02/16 08/02/16 09:11 09:44 09:44 WBC RBC 3.62 L Hgb 9.4 L Hct 29.1 L MCV 80 L MCH 26 L MCHC RDW 18.7 H Plt Count Lymph % (Auto) [place] % (Auto) 9.2 H Lymph # [place] # 1.0 H Seg Neutrophils % 72.0 H Seg Neuts % (Manual) Lymphocytes % (Manual) Monocytes % (Manual) Nucleated RBC % Seg Neutrophils # Man Lymphocytes # (Manual) PT INR APTT POC ABG pH POC ABG pCO2 POC ABG pO2 Sodium 135 L Chloride Carbon Dioxide 21 L BUN 42 H Creatinine Glucose 248 H POC Glucose 306 H Calcium 7.6 L AST ALT Alkaline Phosphatase Total Creatine Kinase CK-MB (CK-2) Total Protein Albumin 08/02/16 08/02/16 08/02/16 15:53 17:33 21:39 WBC RBC Hgb Hct MCV MCH MCHC RDW Plt Count Lymph % (Auto) [place] % (Auto) Lymph # [place] # Seg Neutrophils % Seg Neuts % (Manual) Lymphocytes % (Manual) Monocytes % (Manual) Nucleated RBC % Seg Neutrophils # Man Lymphocytes # (Manual) PT INR APTT POC ABG pH POC ABG pCO2 POC ABG pO2 Sodium Chloride Carbon Dioxide BUN Creatinine Glucose POC Glucose 205 H 250 H 282 H Calcium AST ALT Alkaline Phosphatase Total Creatine Kinase CK-MB (CK-2) Total Protein Albumin 08/03/16 08/03/16 08/03/16 02:28 05:47 07:05 WBC RBC 3.32 L Hgb 8.4 L Hct 26.5 L MCV 80 L MCH 25 L MCHC RDW 18.7 H Plt Count 112 L Lymph % (Auto) 12.5 L [place] % (Auto) 10.2 H Lymph # 1.0 L [place] # Seg Neutrophils % 75.9 H Seg Neuts % (Manual) Lymphocytes % (Manual) Monocytes % (Manual) Nucleated RBC % Seg Neutrophils # Man Lymphocytes # (Manual) PT INR APTT POC ABG pH POC ABG pCO2 POC ABG pO2 Sodium Chloride Carbon Dioxide BUN Creatinine Glucose POC Glucose 317 H 253 H Calcium AST ALT Alkaline Phosphatase Total Creatine Kinase CK-MB (CK-2) Total Protein Albumin 08/03/16 08/03/16 08/03/16 07:05 09:50 14:07 WBC RBC Hgb Hct MCV MCH MCHC RDW Plt Count Lymph % (Auto) [place] % (Auto) Lymph # [place] # Seg Neutrophils % Seg Neuts % (Manual) Lymphocytes % (Manual) Monocytes % (Manual) Nucleated RBC % Seg Neutrophils # Man Lymphocytes # (Manual) PT INR APTT POC ABG pH POC ABG pCO2 POC ABG pO2 Sodium 132 L Chloride Carbon Dioxide 20 L BUN 42 H Creatinine Glucose 243 H POC Glucose 332 H 345 H Calcium 6.8 L AST ALT Alkaline Phosphatase Total Creatine Kinase CK-MB (CK-2) Total Protein Albumin 08/03/16 08/03/16 08/04/16 17:38 21:36 02:18 WBC RBC Hgb Hct MCV MCH MCHC RDW Plt Count Lymph % (Auto) [place] % (Auto) Lymph # [place] # Seg Neutrophils % Seg Neuts % (Manual) Lymphocytes % (Manual) Monocytes % (Manual) Nucleated RBC % Seg Neutrophils # Man Lymphocytes # (Manual) PT INR APTT POC ABG pH POC ABG pCO2 POC ABG pO2 Sodium Chloride Carbon Dioxide BUN Creatinine Glucose POC Glucose 262 H 260 H 256 H Calcium AST ALT Alkaline Phosphatase Total Creatine Kinase CK-MB (CK-2) Total Protein Albumin 08/04/16 08/04/16 08/04/16 05:41 06:00 10:20 WBC RBC Hgb Hct MCV MCH MCHC RDW Plt Count Lymph % (Auto) [place] % (Auto) Lymph # [place] # Seg Neutrophils % Seg Neuts % (Manual) Lymphocytes % (Manual) Monocytes % (Manual) Nucleated RBC % Seg Neutrophils # Man Lymphocytes # (Manual) PT INR APTT POC ABG pH POC ABG pCO2 POC ABG pO2 Sodium Chloride Carbon Dioxide BUN 34 H Creatinine 0.7 L Glucose 237 H POC Glucose 265 H 266 H Calcium 7.9 L D AST ALT Alkaline Phosphatase Total Creatine Kinase CK-MB (CK-2) Total Protein Albumin 08/04/16 08/04/16 08/04/16 14:20 17:31 21:52 WBC RBC Hgb Hct MCV MCH MCHC RDW Plt Count Lymph % (Auto) [place] % (Auto) Lymph # [place] # Seg Neutrophils % Seg Neuts % (Manual) Lymphocytes % (Manual) Monocytes % (Manual) Nucleated RBC % Seg Neutrophils # Man Lymphocytes # (Manual) PT INR APTT POC ABG pH POC ABG pCO2 POC ABG pO2 Sodium Chloride Carbon Dioxide BUN Creatinine Glucose POC Glucose 302 H 337 H 340 H Calcium AST ALT Alkaline Phosphatase Total Creatine Kinase CK-MB (CK-2) Total Protein Albumin 08/05/16 08/05/16 08/05/16 01:43 05:00 05:00 WBC RBC Hgb 9.5 L Hct 30.1 L MCV 81 L MCH 26 L MCHC RDW 19.1 H Plt Count 112 L Lymph % (Auto) [place] % (Auto) Lymph # [place] # Seg Neutrophils % Seg Neuts % (Manual) Lymphocytes % (Manual) Monocytes % (Manual) Nucleated RBC % Seg Neutrophils # Man Lymphocytes # (Manual) PT INR APTT POC ABG pH POC ABG pCO2 POC ABG pO2 Sodium Chloride Carbon Dioxide BUN 27 H Creatinine 0.7 L Glucose 212 H POC Glucose 247 H Calcium 8.3 L AST 92 H ALT 81 H Alkaline Phosphatase 629 H Total Creatine Kinase CK-MB (CK-2) Total Protein 5.9 L Albumin 2.2 L 08/05/16 08/05/16 08/05/16 05:14 05:19 10:12 WBC RBC Hgb Hct MCV MCH MCHC RDW Plt Count Lymph % (Auto) [place] % (Auto) Lymph # [place] # Seg Neutrophils % Seg Neuts % (Manual) Lymphocytes % (Manual) Monocytes % (Manual) Nucleated RBC % Seg Neutrophils # Man Lymphocytes # (Manual) PT INR APTT POC ABG pH 7.469 H POC ABG pCO2 POC ABG pO2 109 H Sodium Chloride Carbon Dioxide BUN Creatinine Glucose POC Glucose 208 H 206 H Calcium AST ALT Alkaline Phosphatase Total Creatine Kinase CK-MB (CK-2) Total Protein Albumin 08/05/16 08/05/16 08/05/16 13:54 18:31 22:06 WBC RBC Hgb Hct MCV MCH MCHC RDW Plt Count Lymph % (Auto) [place] % (Auto) Lymph # [place] # Seg Neutrophils % Seg Neuts % (Manual) Lymphocytes % (Manual) Monocytes % (Manual) Nucleated RBC % Seg Neutrophils # Man Lymphocytes # (Manual) PT INR APTT POC ABG pH POC ABG pCO2 POC ABG pO2 Sodium Chloride Carbon Dioxide BUN Creatinine Glucose POC Glucose 226 H 229 H 245 H Calcium AST ALT Alkaline Phosphatase Total Creatine Kinase CK-MB (CK-2) Total Protein Albumin 08/06/16 08/06/16 08/06/16 02:03 05:31 05:42 WBC RBC Hgb Hct MCV MCH MCHC RDW Plt Count Lymph % (Auto) [place] % (Auto) Lymph # [place] # Seg Neutrophils % Seg Neuts % (Manual) Lymphocytes % (Manual) Monocytes % (Manual) Nucleated RBC % Seg Neutrophils # Man Lymphocytes # (Manual) PT INR APTT POC ABG pH POC ABG pCO2 POC ABG pO2 62 L Sodium Chloride Carbon Dioxide BUN Creatinine Glucose POC Glucose 237 H 205 H Calcium AST ALT Alkaline Phosphatase Total Creatine Kinase CK-MB (CK-2) Total Protein Albumin 08/06/16 08/06/16 08/06/16 09:36 11:30 14:23 WBC RBC Hgb Hct MCV MCH MCHC RDW Plt Count Lymph % (Auto) [place] % (Auto) Lymph # [place] # Seg Neutrophils % Seg Neuts % (Manual) Lymphocytes % (Manual) Monocytes % (Manual) Nucleated RBC % Seg Neutrophils # Man Lymphocytes # (Manual) PT 18.9 H INR 1.59 H APTT 39.7 H POC ABG pH POC ABG pCO2 POC ABG pO2 Sodium Chloride Carbon Dioxide BUN Creatinine Glucose POC Glucose 279 H 264 H Calcium AST ALT Alkaline Phosphatase Total Creatine Kinase CK-MB (CK-2) Total Protein Albumin 08/06/16 08/07/16 08/07/16 18:07 03:01 05:18 WBC RBC Hgb Hct MCV MCH MCHC RDW Plt Count Lymph % (Auto) [place] % (Auto) Lymph # [place] # Seg Neutrophils % Seg Neuts % (Manual) Lymphocytes % (Manual) Monocytes % (Manual) Nucleated RBC % Seg Neutrophils # Man Lymphocytes # (Manual) PT INR APTT POC ABG pH 7.459 H POC ABG pCO2 POC ABG pO2 Sodium Chloride Carbon Dioxide BUN Creatinine Glucose POC Glucose 176 H 172 H Calcium AST ALT Alkaline Phosphatase Total Creatine Kinase CK-MB (CK-2) Total Protein Albumin 08/07/16 08/07/16 08/07/16 05:32 07:30 07:30 WBC RBC 3.39 L Hgb 8.6 L Hct 27.2 L MCV 80 L MCH 25 L MCHC RDW 19.1 H Plt Count 136 L Lymph % (Auto) [place] % (Auto) Lymph # [place] # Seg Neutrophils % Seg Neuts % (Manual) 84.0 H Lymphocytes % (Manual) 4.0 L Monocytes % (Manual) 8.0 H Nucleated RBC % Seg Neutrophils # Man 8.2 H Lymphocytes # (Manual) 0.4 L PT 17.2 H INR 1.41 H APTT POC ABG pH POC ABG pCO2 POC ABG pO2 Sodium Chloride Carbon Dioxide BUN Creatinine Glucose POC Glucose 204 H Calcium AST ALT Alkaline Phosphatase Total Creatine Kinase CK-MB (CK-2) Total Protein Albumin 08/07/16 08/07/16 08/07/16 07:30 10:03 14:35 WBC RBC Hgb Hct MCV MCH MCHC RDW Plt Count Lymph % (Auto) [place] % (Auto) Lymph # [place] # Seg Neutrophils % Seg Neuts % (Manual) Lymphocytes % (Manual) Monocytes % (Manual) Nucleated RBC % Seg Neutrophils # Man Lymphocytes # (Manual) PT INR APTT POC ABG pH POC ABG pCO2 POC ABG pO2 Sodium Chloride Carbon Dioxide BUN 27 H Creatinine 0.7 L Glucose 201 H POC Glucose 233 H 255 H Calcium 7.9 L AST 73 H ALT 74 H Alkaline Phosphatase 595 H Total Creatine Kinase CK-MB (CK-2) Total Protein 5.1 L Albumin 1.8 L 08/07/16 08/07/16 08/08/16 16:09 22:01 01:27 WBC RBC Hgb Hct MCV MCH MCHC RDW Plt Count Lymph % (Auto) [place] % (Auto) Lymph # [place] # Seg Neutrophils % Seg Neuts % (Manual) Lymphocytes % (Manual) Monocytes % (Manual) Nucleated RBC % Seg Neutrophils # Man Lymphocytes # (Manual) PT INR APTT POC ABG pH POC ABG pCO2 POC ABG pO2 Sodium Chloride Carbon Dioxide BUN Creatinine Glucose POC Glucose 259 H 255 H 252 H Calcium AST ALT Alkaline Phosphatase Total Creatine Kinase CK-MB (CK-2) Total Protein Albumin 08/08/16 08/08/16 08/08/16 05:13 06:23 07:40 WBC RBC 3.36 L Hgb 8.5 L Hct 27.1 L MCV 81 L MCH 25 L MCHC 31 L RDW 18.8 H Plt Count 129 L Lymph % (Auto) [place] % (Auto) Lymph # [place] # Seg Neutrophils % Seg Neuts % (Manual) Lymphocytes % (Manual) Monocytes % (Manual) Nucleated RBC % 2.0 H Seg Neutrophils # Man Lymphocytes # (Manual) PT INR APTT POC ABG pH 7.460 H POC ABG pCO2 POC ABG pO2 74 L Sodium Chloride Carbon Dioxide BUN Creatinine Glucose POC Glucose 264 H Calcium AST ALT Alkaline Phosphatase Total Creatine Kinase CK-MB (CK-2) Total Protein Albumin 08/08/16 08/08/16 08/08/16 07:40 10:01 15:00 WBC RBC Hgb Hct MCV MCH MCHC RDW Plt Count Lymph % (Auto) [place] % (Auto) Lymph # [place] # Seg Neutrophils % Seg Neuts % (Manual) Lymphocytes % (Manual) Monocytes % (Manual) Nucleated RBC % Seg Neutrophils # Man Lymphocytes # (Manual) PT INR APTT POC ABG pH POC ABG pCO2 POC ABG pO2 Sodium Chloride Carbon Dioxide BUN 26 H Creatinine 0.7 L Glucose 233 H POC Glucose 271 H 275 H Calcium 7.6 L AST 77 H ALT 71 H Alkaline Phosphatase 658 H Total Creatine Kinase CK-MB (CK-2) Total Protein 5.0 L Albumin 1.6 L 08/08/16 08/08/16 08/08/16 17:28 21:32 23:53 WBC RBC Hgb Hct MCV MCH MCHC RDW Plt Count Lymph % (Auto) [place] % (Auto) Lymph # [place] # Seg Neutrophils % Seg Neuts % (Manual) Lymphocytes % (Manual) Monocytes % (Manual) Nucleated RBC % Seg Neutrophils # Man Lymphocytes # (Manual) PT INR APTT POC ABG pH POC ABG pCO2 POC ABG pO2 Sodium Chloride Carbon Dioxide BUN Creatinine Glucose POC Glucose 275 H 252 H 246 H Calcium AST ALT Alkaline Phosphatase Total Creatine Kinase CK-MB (CK-2) Total Protein Albumin 08/09/16 08/09/16 08/09/16 03:32 05:00 05:00 WBC RBC 3.34 L Hgb 8.3 L Hct 26.7 L MCV 80 L MCH 25 L MCHC 31 L RDW 18.5 H Plt Count Lymph % (Auto) [place] % (Auto) Lymph # [place] # Seg Neutrophils % Seg Neuts % (Manual) Lymphocytes % (Manual) Monocytes % (Manual) Nucleated RBC % Seg Neutrophils # Man Lymphocytes # (Manual) PT INR APTT POC ABG pH POC ABG pCO2 POC ABG pO2 Sodium Chloride Carbon Dioxide BUN 25 H Creatinine 0.5 L Glucose 230 H POC Glucose 260 H Calcium 7.6 L AST ALT Alkaline Phosphatase Total Creatine Kinase CK-MB (CK-2) Total Protein Albumin 08/09/16 08/09/16 08/09/16 06:00 10:07 14:07 WBC RBC Hgb Hct MCV MCH MCHC RDW Plt Count Lymph % (Auto) [place] % (Auto) Lymph # [place] # Seg Neutrophils % Seg Neuts % (Manual) Lymphocytes % (Manual) Monocytes % (Manual) Nucleated RBC % Seg Neutrophils # Man Lymphocytes # (Manual) PT INR APTT POC ABG pH 7.493 H POC ABG pCO2 POC ABG pO2 Sodium Chloride Carbon Dioxide BUN Creatinine Glucose POC Glucose 216 H 220 H Calcium AST ALT Alkaline Phosphatase Total Creatine Kinase CK-MB (CK-2) Total Protein Albumin 08/09/16 08/09/16 08/10/16 16:55 21:07 02:09 WBC RBC Hgb Hct MCV MCH MCHC RDW Plt Count Lymph % (Auto) [place] % (Auto) Lymph # [place] # Seg Neutrophils % Seg Neuts % (Manual) Lymphocytes % (Manual) Monocytes % (Manual) Nucleated RBC % Seg Neutrophils # Man Lymphocytes # (Manual) PT INR APTT POC ABG pH POC ABG pCO2 POC ABG pO2 Sodium Chloride Carbon Dioxide BUN Creatinine Glucose POC Glucose 242 H 235 H 228 H Calcium AST ALT Alkaline Phosphatase Total Creatine Kinase CK-MB (CK-2) Total Protein Albumin 08/10/16 08/10/16 08/10/16 05:31 09:06 13:45 WBC RBC Hgb Hct MCV MCH MCHC RDW Plt Count Lymph % (Auto) [place] % (Auto) Lymph # [place] # Seg Neutrophils % Seg Neuts % (Manual) Lymphocytes % (Manual) Monocytes % (Manual) Nucleated RBC % Seg Neutrophils # Man Lymphocytes # (Manual) PT INR APTT POC ABG pH POC ABG pCO2 POC ABG pO2 Sodium Chloride Carbon Dioxide BUN Creatinine Glucose POC Glucose 201 H 229 H 274 H Calcium AST ALT Alkaline Phosphatase Total Creatine Kinase CK-MB (CK-2) Total Protein Albumin 08/10/16 08/10/16 08/10/16 17:53 21:43 Unknown WBC RBC 3.42 L Hgb 8.6 L Hct 27.5 L MCV 80 L MCH 25 L MCHC RDW 19.1 H Plt Count Lymph % (Auto) [place] % (Auto) Lymph # [place] # Seg Neutrophils % Seg Neuts % (Manual) Lymphocytes % (Manual) Monocytes % (Manual) Nucleated RBC % Seg Neutrophils # Man Lymphocytes # (Manual) PT INR APTT POC ABG pH POC ABG pCO2 POC ABG pO2 Sodium Chloride Carbon Dioxide BUN Creatinine Glucose POC Glucose 284 H 328 H Calcium AST ALT Alkaline Phosphatase Total Creatine Kinase CK-MB (CK-2) Total Protein Albumin 08/10/16 08/11/16 08/11/16 Unknown 01:37 05:39 WBC RBC Hgb Hct MCV MCH MCHC RDW Plt Count Lymph % (Auto) [place] % (Auto) Lymph # [place] # Seg Neutrophils % Seg Neuts % (Manual) Lymphocytes % (Manual) Monocytes % (Manual) Nucleated RBC % Seg Neutrophils # Man Lymphocytes # (Manual) PT INR APTT POC ABG pH POC ABG pCO2 POC ABG pO2 Sodium Chloride Carbon Dioxide BUN 27 H Creatinine 0.6 L Glucose 211 H POC Glucose 340 H 323 H Calcium 7.8 L AST ALT Alkaline Phosphatase Total Creatine Kinase CK-MB (CK-2) Total Protein Albumin 08/11/16 08/11/16 08/11/16 09:58 15:22 17:41 WBC RBC Hgb Hct MCV MCH MCHC RDW Plt Count Lymph % (Auto) [place] % (Auto) Lymph # [place] # Seg Neutrophils % Seg Neuts % (Manual) Lymphocytes % (Manual) Monocytes % (Manual) Nucleated RBC % Seg Neutrophils # Man Lymphocytes # (Manual) PT INR APTT POC ABG pH POC ABG pCO2 POC ABG pO2 Sodium Chloride Carbon Dioxide BUN Creatinine Glucose POC Glucose 295 H 210 H 164 H Calcium AST ALT Alkaline Phosphatase Total Creatine Kinase CK-MB (CK-2) Total Protein Albumin 08/11/16 08/12/16 08/12/16 21:53 01:56 05:15 WBC RBC Hgb Hct MCV MCH MCHC RDW Plt Count Lymph % (Auto) [place] % (Auto) Lymph # [place] # Seg Neutrophils % Seg Neuts % (Manual) Lymphocytes % (Manual) Monocytes % (Manual) Nucleated RBC % Seg Neutrophils # Man Lymphocytes # (Manual) PT INR APTT POC ABG pH POC ABG pCO2 POC ABG pO2 Sodium Chloride Carbon Dioxide BUN Creatinine Glucose POC Glucose 171 H 205 H 156 H Calcium AST ALT Alkaline Phosphatase Total Creatine Kinase CK-MB (CK-2) Total Protein Albumin 08/12/16 08/12/16 08/12/16 10:10 14:33 17:53 WBC RBC Hgb Hct MCV MCH MCHC RDW Plt Count Lymph % (Auto) [place] % (Auto) Lymph # [place] # Seg Neutrophils % Seg Neuts % (Manual) Lymphocytes % (Manual) Monocytes % (Manual) Nucleated RBC % Seg Neutrophils # Man Lymphocytes # (Manual) PT INR APTT POC ABG pH POC ABG pCO2 POC ABG pO2 Sodium Chloride Carbon Dioxide BUN Creatinine Glucose POC Glucose 224 H 245 H 259 H Calcium AST ALT Alkaline Phosphatase Total Creatine Kinase CK-MB (CK-2) Total Protein Albumin 08/12/16 08/13/16 08/13/16 21:56 04:00 04:02 WBC RBC Hgb Hct MCV MCH MCHC RDW Plt Count Lymph % (Auto) [place] % (Auto) Lymph # [place] # Seg Neutrophils % Seg Neuts % (Manual) Lymphocytes % (Manual) Monocytes % (Manual) Nucleated RBC % Seg Neutrophils # Man Lymphocytes # (Manual) PT INR APTT POC ABG pH POC ABG pCO2 POC ABG pO2 Sodium 136 L Chloride 97.2 L Carbon Dioxide BUN 26 H Creatinine 0.6 L Glucose 185 H POC Glucose 229 H 202 H Calcium 7.3 L AST ALT Alkaline Phosphatase Total Creatine Kinase CK-MB (CK-2) Total Protein Albumin 08/13/16 08/13/16 08/13/16 06:47 09:53 13:40 WBC RBC Hgb Hct MCV MCH MCHC RDW Plt Count Lymph % (Auto) [place] % (Auto) Lymph # [place] # Seg Neutrophils % Seg Neuts % (Manual) Lymphocytes % (Manual) Monocytes % (Manual) Nucleated RBC % Seg Neutrophils # Man Lymphocytes # (Manual) PT INR APTT POC ABG pH POC ABG pCO2 POC ABG pO2 Sodium Chloride Carbon Dioxide BUN Creatinine Glucose POC Glucose 191 H 221 H 225 H Calcium AST ALT Alkaline Phosphatase Total Creatine Kinase CK-MB (CK-2) Total Protein Albumin 08/13/16 08/13/16 08/13/16 17:07 21:09 Unknown WBC RBC 3.53 L Hgb 8.9 L Hct 28.4 L MCV 81 L MCH 25 L MCHC 31 L RDW 19.2 H Plt Count Lymph % (Auto) [place] % (Auto) Lymph # [place] # Seg Neutrophils % Seg Neuts % (Manual) Lymphocytes % (Manual) Monocytes % (Manual) Nucleated RBC % Seg Neutrophils # Man Lymphocytes # (Manual) PT INR APTT POC ABG pH POC ABG pCO2 POC ABG pO2 Sodium Chloride Carbon Dioxide BUN Creatinine Glucose POC Glucose 232 H 166 H Calcium AST ALT Alkaline Phosphatase Total Creatine Kinase CK-MB (CK-2) Total Protein Albumin 08/14/16 08/14/16 08/14/16 01:42 05:16 08:57 WBC RBC Hgb Hct MCV MCH MCHC RDW Plt Count Lymph % (Auto) [place] % (Auto) Lymph # [place] # Seg Neutrophils % Seg Neuts % (Manual) Lymphocytes % (Manual) Monocytes % (Manual) Nucleated RBC % Seg Neutrophils # Man Lymphocytes # (Manual) PT INR APTT POC ABG pH POC ABG pCO2 POC ABG pO2 Sodium Chloride Carbon Dioxide BUN Creatinine Glucose POC Glucose 172 H 182 H 233 H Calcium AST ALT Alkaline Phosphatase Total Creatine Kinase CK-MB (CK-2) Total Protein Albumin
--- NOTE | 2016-08-14 12:09 | Progress Note ---
Assessment and Plan 76 YO M Hx HTN/HLD/DM2 present w/ AMS on 07/30 found face down on his bed unresponsive found to have acute resp failure s/p intubaton, initial blood sugar was 60, shock/hypotensive. CTH neg. decreased Ca/pO2 and elevated WBC, BUN , and AST/ALT mildly. On exam pt w/ depressed level of arousal stuporous, poor attention/concentration , paucity of speech, not following midline/peripheral commands w/ initial no clear movement in UE and LE triple flexion but also ? LLE withdrawal superimposed. On 08/04 exam MS stable still not following commands but purposeful movements localizing pain throughout. On exam 08/14 now pt eyes open intermixed resisting eye opening and continued localizing pain but not yet following commands. I suspect toxic metabolic infectious derangement as the etiology for neurologic decompensation but MRI Brain also reveals L > R cortical parieto-temporal acute ischemia likely 2/2 hypoperfusion from shock. EEG also mod nonspecific diffuse cerebral dysfunction L > R w/ triphasics but no IEDs/Sz. CSF obtained WBC 2 Protein 93 not significant for inflammatory/ infectious process. Recommendations: 1. Cont Infectious work up/medical management for UTI, PNA, cellulitis, bacteremia, etc. 2. Avoid hyponatremia,o/hyper-calcemia, hypo/hyperglycemia, acidosis, hypoxia/ hypoxemia, hypercarbia/hypercapnia 3. Avoid institution of any new psychoactive medications (e.g. antihistamines, anticholinergics, BZD, hypnotics, opiates) as able unless low doses of low potency antipsychotic needed for behavioral issues complicating medical care 4. Cont ICU care to keep MAPs > 65 @ least 5. Thiamine/Folate/CIWA protocol accordingly for any hx obtained to suggest EtOH withdrawal 6. Cont home meds-there is no neurologic indication to change 7. I have discussed pt's prgnosis with and brother at the bedside noting patient's improvement and relatively mild-mod b/l cortical ischemia. I expect him to continue to improve if he remains medically stable. He will need Trach/ PEG for short term but these may not be permanent. I agree with proceeding to LTAC/Rehab thereafter. Subjective Date of service: 08/14/16 Principal diagnosis: acute respiratory failure, encephalopathy Interval history: MRI completed last week. LP also performed for AMS. He has been opneing eyes more and moving purposefully. Objective - Vital Sign Vital Signs - 12hr 08/14/16 08/14/16 08/14/16 01:00 02:00 03:00 Temperature Pulse Rate 96 H 90 95 H Respiratory 16 14 16 Rate Blood Pressure 131/65 128/70 137/66 O2 Sat by Pulse 92 92 96 Oximetry 08/14/16 08/14/16 08/14/16 03:16 03:37 03:39 Temperature 100.8 F H 100.9 F H Pulse Rate Respiratory 19 Rate Blood Pressure O2 Sat by Pulse 99 Oximetry 08/14/16 08/14/16 08/14/16 03:42 04:00 05:00 Temperature Pulse Rate 93 H 92 H 98 H Respiratory 22 21 Rate Blood Pressure 137/66 137/66 136/63 O2 Sat by Pulse 97 95 99 Oximetry 08/14/16 08/14/16 08/14/16 06:00 08:00 08:21 Temperature 99.6 F Pulse Rate 100 H 81 Respiratory 25 H 25 H Rate Blood Pressure 143/67 135/49 O2 Sat by Pulse 98 97 Oximetry 08/14/16 08/14/16 08/14/16 08:34 09:43 11:16 Temperature Pulse Rate 91 H 80 86 Respiratory 19 20 19 Rate Blood Pressure 134/59 136/56 113/49 O2 Sat by Pulse 99 96 98 Oximetry - General Apperance Constitutional: acutely ill - EENT EENT: ATNC, PERRL, mucous membranes dry, hearing intact, vision intact - Respiratory Respiratory: chest non-tender, normal breath sounds, no respiratory distress - Cardiovascular Cardiovascular: regular rate Extremities: no peripheral edema bilat, no clubbing, cyanosis, no inflammation, no ischemia or petechiae - Gastrointestinal Gastrointestinal: normoactive bowel sounds, soft, non-distended - Integumentary Integumentary: normal - Neurologic Cranial nerve examination: PERRL, EOMI, V1/V2/V3 grossly intact, face symmetric , intact gag reflex, Intact Vestibulo-ocular r, intact corneal reflex Speech examination: other (no speech, not following commands) Detailed motor examination: grossly full strength in Motor examination - right side: 45: biceps, triceps, wrist flexion, wrist extension, senior occupational therapist, hip flexors, knee extensors, dorsiflexion, toe extension (EHL) Motor examination - left side: 4/5: biceps, triceps, wrist flexion, wrist extension, senior occupational therapist, hip flexors, knee extensors, dorsiflexion, toe extension (EHL) , plantarflexion Detailed sensory examination: intact, pain (withdrawal) Reflex and gait examination: intact Reflexes: 0: ankle, 2+: bicep, knee, tricep - Musculoskeletal Musculoskeletal: no fluid collection, no pain, normal range of motion - Laboratory Findings CBC and BMP: 08/13/16 Unknown 08/13/16 04:00 Abnormal Lab Findings: Abnormal Labs 07/31/16 07/31/16 07/31/16 08:39 10:07 12:07 WBC RBC Hgb Hct MCV MCH MCHC RDW Plt Count Lymph % (Auto) Gage % (Auto) Lymph # Gage # Seg Neutrophils % Seg Neuts % (Manual) Lymphocytes % (Manual) Monocytes % (Manual) Nucleated RBC % Seg Neutrophils # Man Lymphocytes # (Manual) PT INR APTT POC ABG pH POC ABG pCO2 POC ABG pO2 Sodium Chloride Carbon Dioxide BUN Creatinine Glucose POC Glucose 205 H 188 H Calcium AST ALT Alkaline Phosphatase Total Creatine Kinase 865 H CK-MB (CK-2) 5.9 H Total Protein Albumin 07/31/16 07/31/16 07/31/16 16:19 19:58 23:53 WBC RBC Hgb Hct MCV MCH MCHC RDW Plt Count Lymph % (Auto) Gage % (Auto) Lymph # Gage # Seg Neutrophils % Seg Neuts % (Manual) Lymphocytes % (Manual) Monocytes % (Manual) Nucleated RBC % Seg Neutrophils # Man Lymphocytes # (Manual) PT INR APTT POC ABG pH POC ABG pCO2 POC ABG pO2 Sodium Chloride Carbon Dioxide BUN Creatinine Glucose POC Glucose 195 H 147 H 160 H Calcium AST ALT Alkaline Phosphatase Total Creatine Kinase CK-MB (CK-2) Total Protein Albumin 08/01/16 08/01/16 08/01/16 04:18 04:42 07:45 WBC 14.8 H RBC Hgb 10.7 L Hct 34.9 L MCV 82 L MCH 25 L MCHC 31 L RDW 19.1 H Plt Count Lymph % (Auto) Gage % (Auto) Lymph # Gage # Seg Neutrophils % Seg Neuts % (Manual) 80.0 H Lymphocytes % (Manual) 12.0 L Monocytes % (Manual) Nucleated RBC % Seg Neutrophils # Man 11.8 H Lymphocytes # (Manual) PT INR APTT POC ABG pH POC ABG pCO2 33.4 L POC ABG pO2 66 L Sodium Chloride Carbon Dioxide BUN Creatinine Glucose POC Glucose 225 H Calcium AST ALT Alkaline Phosphatase Total Creatine Kinase CK-MB (CK-2) Total Protein Albumin 08/01/16 08/01/16 08/01/16 07:45 10:09 10:59 WBC RBC Hgb Hct MCV MCH MCHC RDW Plt Count Lymph % (Auto) Gage % (Auto) Lymph # Gage # Seg Neutrophils % Seg Neuts % (Manual) Lymphocytes % (Manual) Monocytes % (Manual) Nucleated RBC % Seg Neutrophils # Man Lymphocytes # (Manual) PT INR APTT POC ABG pH POC ABG pCO2 POC ABG pO2 Sodium Chloride Carbon Dioxide BUN 29 H Creatinine Glucose 233 H POC Glucose 266 H 318 H Calcium 7.6 L AST ALT Alkaline Phosphatase Total Creatine Kinase CK-MB (CK-2) Total Protein Albumin 08/01/16 08/01/16 08/01/16 14:24 17:56 21:21 WBC RBC Hgb Hct MCV MCH MCHC RDW Plt Count Lymph % (Auto) Gage % (Auto) Lymph # Gage # Seg Neutrophils % Seg Neuts % (Manual) Lymphocytes % (Manual) Monocytes % (Manual) Nucleated RBC % Seg Neutrophils # Man Lymphocytes # (Manual) PT INR APTT POC ABG pH POC ABG pCO2 POC ABG pO2 Sodium Chloride Carbon Dioxide BUN Creatinine Glucose POC Glucose 298 H 239 H 203 H Calcium AST ALT Alkaline Phosphatase Total Creatine Kinase CK-MB (CK-2) Total Protein Albumin 08/02/16 08/02/16 08/02/16 02:05 03:55 05:38 WBC RBC Hgb Hct MCV MCH MCHC RDW Plt Count Lymph % (Auto) Gage % (Auto) Lymph # Gage # Seg Neutrophils % Seg Neuts % (Manual) Lymphocytes % (Manual) Monocytes % (Manual) Nucleated RBC % Seg Neutrophils # Man Lymphocytes # (Manual) PT INR APTT POC ABG pH 7.460 H POC ABG pCO2 31.2 L POC ABG pO2 71 L Sodium Chloride Carbon Dioxide BUN Creatinine Glucose POC Glucose 248 H 253 H Calcium AST ALT Alkaline Phosphatase Total Creatine Kinase CK-MB (CK-2) Total Protein Albumin 08/02/16 08/02/16 08/02/16 09:11 09:44 09:44 WBC RBC 3.62 L Hgb 9.4 L Hct 29.1 L MCV 80 L MCH 26 L MCHC RDW 18.7 H Plt Count Lymph % (Auto) Gage % (Auto) 9.2 H Lymph # Gage # 1.0 H Seg Neutrophils % 72.0 H Seg Neuts % (Manual) Lymphocytes % (Manual) Monocytes % (Manual) Nucleated RBC % Seg Neutrophils # Man Lymphocytes # (Manual) PT INR APTT POC ABG pH POC ABG pCO2 POC ABG pO2 Sodium 135 L Chloride Carbon Dioxide 21 L BUN 42 H Creatinine Glucose 248 H POC Glucose 306 H Calcium 7.6 L AST ALT Alkaline Phosphatase Total Creatine Kinase CK-MB (CK-2) Total Protein Albumin 08/02/16 08/02/16 08/02/16 15:53 17:33 21:39 WBC RBC Hgb Hct MCV MCH MCHC RDW Plt Count Lymph % (Auto) Gage % (Auto) Lymph # Gage # Seg Neutrophils % Seg Neuts % (Manual) Lymphocytes % (Manual) Monocytes % (Manual) Nucleated RBC % Seg Neutrophils # Man Lymphocytes # (Manual) PT INR APTT POC ABG pH POC ABG pCO2 POC ABG pO2 Sodium Chloride Carbon Dioxide BUN Creatinine Glucose POC Glucose 205 H 250 H 282 H Calcium AST ALT Alkaline Phosphatase Total Creatine Kinase CK-MB (CK-2) Total Protein Albumin 08/03/16 08/03/16 08/03/16 02:28 05:47 07:05 WBC RBC 3.32 L Hgb 8.4 L Hct 26.5 L MCV 80 L MCH 25 L MCHC RDW 18.7 H Plt Count 112 L Lymph % (Auto) 12.5 L Gage % (Auto) 10.2 H Lymph # 1.0 L Gage # Seg Neutrophils % 75.9 H Seg Neuts % (Manual) Lymphocytes % (Manual) Monocytes % (Manual) Nucleated RBC % Seg Neutrophils # Man Lymphocytes # (Manual) PT INR APTT POC ABG pH POC ABG pCO2 POC ABG pO2 Sodium Chloride Carbon Dioxide BUN Creatinine Glucose POC Glucose 317 H 253 H Calcium AST ALT Alkaline Phosphatase Total Creatine Kinase CK-MB (CK-2) Total Protein Albumin 08/03/16 08/03/16 08/03/16 07:05 09:50 14:07 WBC RBC Hgb Hct MCV MCH MCHC RDW Plt Count Lymph % (Auto) Gage % (Auto) Lymph # Gage # Seg Neutrophils % Seg Neuts % (Manual) Lymphocytes % (Manual) Monocytes % (Manual) Nucleated RBC % Seg Neutrophils # Man Lymphocytes # (Manual) PT INR APTT POC ABG pH POC ABG pCO2 POC ABG pO2 Sodium 132 L Chloride Carbon Dioxide 20 L BUN 42 H Creatinine Glucose 243 H POC Glucose 332 H 345 H Calcium 6.8 L AST ALT Alkaline Phosphatase Total Creatine Kinase CK-MB (CK-2) Total Protein Albumin 08/03/16 08/03/16 08/04/16 17:38 21:36 02:18 WBC RBC Hgb Hct MCV MCH MCHC RDW Plt Count Lymph % (Auto) Gage % (Auto) Lymph # Gage # Seg Neutrophils % Seg Neuts % (Manual) Lymphocytes % (Manual) Monocytes % (Manual) Nucleated RBC % Seg Neutrophils # Man Lymphocytes # (Manual) PT INR APTT POC ABG pH POC ABG pCO2 POC ABG pO2 Sodium Chloride Carbon Dioxide BUN Creatinine Glucose POC Glucose 262 H 260 H 256 H Calcium AST ALT Alkaline Phosphatase Total Creatine Kinase CK-MB (CK-2) Total Protein Albumin 08/04/16 08/04/16 08/04/16 05:41 06:00 10:20 WBC RBC Hgb Hct MCV MCH MCHC RDW Plt Count Lymph % (Auto) Gage % (Auto) Lymph # Gage # Seg Neutrophils % Seg Neuts % (Manual) Lymphocytes % (Manual) Monocytes % (Manual) Nucleated RBC % Seg Neutrophils # Man Lymphocytes # (Manual) PT INR APTT POC ABG pH POC ABG pCO2 POC ABG pO2 Sodium Chloride Carbon Dioxide BUN 34 H Creatinine 0.7 L Glucose 237 H POC Glucose 265 H 266 H Calcium 7.9 L D AST ALT Alkaline Phosphatase Total Creatine Kinase CK-MB (CK-2) Total Protein Albumin 08/04/16 08/04/16 08/04/16 14:20 17:31 21:52 WBC RBC Hgb Hct MCV MCH MCHC RDW Plt Count Lymph % (Auto) Gage % (Auto) Lymph # Gage # Seg Neutrophils % Seg Neuts % (Manual) Lymphocytes % (Manual) Monocytes % (Manual) Nucleated RBC % Seg Neutrophils # Man Lymphocytes # (Manual) PT INR APTT POC ABG pH POC ABG pCO2 POC ABG pO2 Sodium Chloride Carbon Dioxide BUN Creatinine Glucose POC Glucose 302 H 337 H 340 H Calcium AST ALT Alkaline Phosphatase Total Creatine Kinase CK-MB (CK-2) Total Protein Albumin 08/05/16 08/05/16 08/05/16 01:43 05:00 05:00 WBC RBC Hgb 9.5 L Hct 30.1 L MCV 81 L MCH 26 L MCHC RDW 19.1 H Plt Count 112 L Lymph % (Auto) Gage % (Auto) Lymph # Gage # Seg Neutrophils % Seg Neuts % (Manual) Lymphocytes % (Manual) Monocytes % (Manual) Nucleated RBC % Seg Neutrophils # Man Lymphocytes # (Manual) PT INR APTT POC ABG pH POC ABG pCO2 POC ABG pO2 Sodium Chloride Carbon Dioxide BUN 27 H Creatinine 0.7 L Glucose 212 H POC Glucose 247 H Calcium 8.3 L AST 92 H ALT 81 H Alkaline Phosphatase 629 H Total Creatine Kinase CK-MB (CK-2) Total Protein 5.9 L Albumin 2.2 L 08/05/16 08/05/16 08/05/16 05:14 05:19 10:12 WBC RBC Hgb Hct MCV MCH MCHC RDW Plt Count Lymph % (Auto) Gage % (Auto) Lymph # Gage # Seg Neutrophils % Seg Neuts % (Manual) Lymphocytes % (Manual) Monocytes % (Manual) Nucleated RBC % Seg Neutrophils # Man Lymphocytes # (Manual) PT INR APTT POC ABG pH 7.469 H POC ABG pCO2 POC ABG pO2 109 H Sodium Chloride Carbon Dioxide BUN Creatinine Glucose POC Glucose 208 H 206 H Calcium AST ALT Alkaline Phosphatase Total Creatine Kinase CK-MB (CK-2) Total Protein Albumin 08/05/16 08/05/16 08/05/16 13:54 18:31 22:06 WBC RBC Hgb Hct MCV MCH MCHC RDW Plt Count Lymph % (Auto) Gage % (Auto) Lymph # Gage # Seg Neutrophils % Seg Neuts % (Manual) Lymphocytes % (Manual) Monocytes % (Manual) Nucleated RBC % Seg Neutrophils # Man Lymphocytes # (Manual) PT INR APTT POC ABG pH POC ABG pCO2 POC ABG pO2 Sodium Chloride Carbon Dioxide BUN Creatinine Glucose POC Glucose 226 H 229 H 245 H Calcium AST ALT Alkaline Phosphatase Total Creatine Kinase CK-MB (CK-2) Total Protein Albumin 08/06/16 08/06/16 08/06/16 02:03 05:31 05:42 WBC RBC Hgb Hct MCV MCH MCHC RDW Plt Count Lymph % (Auto) Gage % (Auto) Lymph # Gage # Seg Neutrophils % Seg Neuts % (Manual) Lymphocytes % (Manual) Monocytes % (Manual) Nucleated RBC % Seg Neutrophils # Man Lymphocytes # (Manual) PT INR APTT POC ABG pH POC ABG pCO2 POC ABG pO2 62 L Sodium Chloride Carbon Dioxide BUN Creatinine Glucose POC Glucose 237 H 205 H Calcium AST ALT Alkaline Phosphatase Total Creatine Kinase CK-MB (CK-2) Total Protein Albumin 08/06/16 08/06/16 08/06/16 09:36 11:30 14:23 WBC RBC Hgb Hct MCV MCH MCHC RDW Plt Count Lymph % (Auto) Gage % (Auto) Lymph # Gage # Seg Neutrophils % Seg Neuts % (Manual) Lymphocytes % (Manual) Monocytes % (Manual) Nucleated RBC % Seg Neutrophils # Man Lymphocytes # (Manual) PT 18.9 H INR 1.59 H APTT 39.7 H POC ABG pH POC ABG pCO2 POC ABG pO2 Sodium Chloride Carbon Dioxide BUN Creatinine Glucose POC Glucose 279 H 264 H Calcium AST ALT Alkaline Phosphatase Total Creatine Kinase CK-MB (CK-2) Total Protein Albumin 08/06/16 08/07/16 08/07/16 18:07 03:01 05:18 WBC RBC Hgb Hct MCV MCH MCHC RDW Plt Count Lymph % (Auto) Gage % (Auto) Lymph # Gage # Seg Neutrophils % Seg Neuts % (Manual) Lymphocytes % (Manual) Monocytes % (Manual) Nucleated RBC % Seg Neutrophils # Man Lymphocytes # (Manual) PT INR APTT POC ABG pH 7.459 H POC ABG pCO2 POC ABG pO2 Sodium Chloride Carbon Dioxide BUN Creatinine Glucose POC Glucose 176 H 172 H Calcium AST ALT Alkaline Phosphatase Total Creatine Kinase CK-MB (CK-2) Total Protein Albumin 08/07/16 08/07/16 08/07/16 05:32 07:30 07:30 WBC RBC 3.39 L Hgb 8.6 L Hct 27.2 L MCV 80 L MCH 25 L MCHC RDW 19.1 H Plt Count 136 L Lymph % (Auto) Gage % (Auto) Lymph # Gage # Seg Neutrophils % Seg Neuts % (Manual) 84.0 H Lymphocytes % (Manual) 4.0 L Monocytes % (Manual) 8.0 H Nucleated RBC % Seg Neutrophils # Man 8.2 H Lymphocytes # (Manual) 0.4 L PT 17.2 H INR 1.41 H APTT POC ABG pH POC ABG pCO2 POC ABG pO2 Sodium Chloride Carbon Dioxide BUN Creatinine Glucose POC Glucose 204 H Calcium AST ALT Alkaline Phosphatase Total Creatine Kinase CK-MB (CK-2) Total Protein Albumin 08/07/16 08/07/16 08/07/16 07:30 10:03 14:35 WBC RBC Hgb Hct MCV MCH MCHC RDW Plt Count Lymph % (Auto) Gage % (Auto) Lymph # Gage # Seg Neutrophils % Seg Neuts % (Manual) Lymphocytes % (Manual) Monocytes % (Manual) Nucleated RBC % Seg Neutrophils # Man Lymphocytes # (Manual) PT INR APTT POC ABG pH POC ABG pCO2 POC ABG pO2 Sodium Chloride Carbon Dioxide BUN 27 H Creatinine 0.7 L Glucose 201 H POC Glucose 233 H 255 H Calcium 7.9 L AST 73 H ALT 74 H Alkaline Phosphatase 595 H Total Creatine Kinase CK-MB (CK-2) Total Protein 5.1 L Albumin 1.8 L 08/07/16 08/07/16 08/08/16 16:09 22:01 01:27 WBC RBC Hgb Hct MCV MCH MCHC RDW Plt Count Lymph % (Auto) Gage % (Auto) Lymph # Gage # Seg Neutrophils % Seg Neuts % (Manual) Lymphocytes % (Manual) Monocytes % (Manual) Nucleated RBC % Seg Neutrophils # Man Lymphocytes # (Manual) PT INR APTT POC ABG pH POC ABG pCO2 POC ABG pO2 Sodium Chloride Carbon Dioxide BUN Creatinine Glucose POC Glucose 259 H 255 H 252 H Calcium AST ALT Alkaline Phosphatase Total Creatine Kinase CK-MB (CK-2) Total Protein Albumin 08/08/16 08/08/16 08/08/16 05:13 06:23 07:40 WBC RBC 3.36 L Hgb 8.5 L Hct 27.1 L MCV 81 L MCH 25 L MCHC 31 L RDW 18.8 H Plt Count 129 L Lymph % (Auto) Gage % (Auto) Lymph # Gage # Seg Neutrophils % Seg Neuts % (Manual) Lymphocytes % (Manual) Monocytes % (Manual) Nucleated RBC % 2.0 H Seg Neutrophils # Man Lymphocytes # (Manual) PT INR APTT POC ABG pH 7.460 H POC ABG pCO2 POC ABG pO2 74 L Sodium Chloride Carbon Dioxide BUN Creatinine Glucose POC Glucose 264 H Calcium AST ALT Alkaline Phosphatase Total Creatine Kinase CK-MB (CK-2) Total Protein Albumin 08/08/16 08/08/16 08/08/16 07:40 10:01 15:00 WBC RBC Hgb Hct MCV MCH MCHC RDW Plt Count Lymph % (Auto) Gage % (Auto) Lymph # Gage # Seg Neutrophils % Seg Neuts % (Manual) Lymphocytes % (Manual) Monocytes % (Manual) Nucleated RBC % Seg Neutrophils # Man Lymphocytes # (Manual) PT INR APTT POC ABG pH POC ABG pCO2 POC ABG pO2 Sodium Chloride Carbon Dioxide BUN 26 H Creatinine 0.7 L Glucose 233 H POC Glucose 271 H 275 H Calcium 7.6 L AST 77 H ALT 71 H Alkaline Phosphatase 658 H Total Creatine Kinase CK-MB (CK-2) Total Protein 5.0 L Albumin 1.6 L 08/08/16 08/08/16 08/08/16 17:28 21:32 23:53 WBC RBC Hgb Hct MCV MCH MCHC RDW Plt Count Lymph % (Auto) Gage % (Auto) Lymph # Gage # Seg Neutrophils % Seg Neuts % (Manual) Lymphocytes % (Manual) Monocytes % (Manual) Nucleated RBC % Seg Neutrophils # Man Lymphocytes # (Manual) PT INR APTT POC ABG pH POC ABG pCO2 POC ABG pO2 Sodium Chloride Carbon Dioxide BUN Creatinine Glucose POC Glucose 275 H 252 H 246 H Calcium AST ALT Alkaline Phosphatase Total Creatine Kinase CK-MB (CK-2) Total Protein Albumin 08/09/16 08/09/16 08/09/16 03:32 05:00 05:00 WBC RBC 3.34 L Hgb 8.3 L Hct 26.7 L MCV 80 L MCH 25 L MCHC 31 L RDW 18.5 H Plt Count Lymph % (Auto) Gage % (Auto) Lymph # Gage # Seg Neutrophils % Seg Neuts % (Manual) Lymphocytes % (Manual) Monocytes % (Manual) Nucleated RBC % Seg Neutrophils # Man Lymphocytes # (Manual) PT INR APTT POC ABG pH POC ABG pCO2 POC ABG pO2 Sodium Chloride Carbon Dioxide BUN 25 H Creatinine 0.5 L Glucose 230 H POC Glucose 260 H Calcium 7.6 L AST ALT Alkaline Phosphatase Total Creatine Kinase CK-MB (CK-2) Total Protein Albumin 08/09/16 08/09/16 08/09/16 06:00 10:07 14:07 WBC RBC Hgb Hct MCV MCH MCHC RDW Plt Count Lymph % (Auto) Gage % (Auto) Lymph # Gage # Seg Neutrophils % Seg Neuts % (Manual) Lymphocytes % (Manual) Monocytes % (Manual) Nucleated RBC % Seg Neutrophils # Man Lymphocytes # (Manual) PT INR APTT POC ABG pH 7.493 H POC ABG pCO2 POC ABG pO2 Sodium Chloride Carbon Dioxide BUN Creatinine Glucose POC Glucose 216 H 220 H Calcium AST ALT Alkaline Phosphatase Total Creatine Kinase CK-MB (CK-2) Total Protein Albumin 08/09/16 08/09/16 08/10/16 16:55 21:07 02:09 WBC RBC Hgb Hct MCV MCH MCHC RDW Plt Count Lymph % (Auto) Gage % (Auto) Lymph # Gage # Seg Neutrophils % Seg Neuts % (Manual) Lymphocytes % (Manual) Monocytes % (Manual) Nucleated RBC % Seg Neutrophils # Man Lymphocytes # (Manual) PT INR APTT POC ABG pH POC ABG pCO2 POC ABG pO2 Sodium Chloride Carbon Dioxide BUN Creatinine Glucose POC Glucose 242 H 235 H 228 H Calcium AST ALT Alkaline Phosphatase Total Creatine Kinase CK-MB (CK-2) Total Protein Albumin 08/10/16 08/10/16 08/10/16 05:31 09:06 13:45 WBC RBC Hgb Hct MCV MCH MCHC RDW Plt Count Lymph % (Auto) Gage % (Auto) Lymph # Gage # Seg Neutrophils % Seg Neuts % (Manual) Lymphocytes % (Manual) Monocytes % (Manual) Nucleated RBC % Seg Neutrophils # Man Lymphocytes # (Manual) PT INR APTT POC ABG pH POC ABG pCO2 POC ABG pO2 Sodium Chloride Carbon Dioxide BUN Creatinine Glucose POC Glucose 201 H 229 H 274 H Calcium AST ALT Alkaline Phosphatase Total Creatine Kinase CK-MB (CK-2) Total Protein Albumin 08/10/16 08/10/16 08/10/16 17:53 21:43 Unknown WBC RBC 3.42 L Hgb 8.6 L Hct 27.5 L MCV 80 L MCH 25 L MCHC RDW 19.1 H Plt Count Lymph % (Auto) Gage % (Auto) Lymph # Gage # Seg Neutrophils % Seg Neuts % (Manual) Lymphocytes % (Manual) Monocytes % (Manual) Nucleated RBC % Seg Neutrophils # Man Lymphocytes # (Manual) PT INR APTT POC ABG pH POC ABG pCO2 POC ABG pO2 Sodium Chloride Carbon Dioxide BUN Creatinine Glucose POC Glucose 284 H 328 H Calcium AST ALT Alkaline Phosphatase Total Creatine Kinase CK-MB (CK-2) Total Protein Albumin 08/10/16 08/11/16 08/11/16 Unknown 01:37 05:39 WBC RBC Hgb Hct MCV MCH MCHC RDW Plt Count Lymph % (Auto) Gage % (Auto) Lymph # Gage # Seg Neutrophils % Seg Neuts % (Manual) Lymphocytes % (Manual) Monocytes % (Manual) Nucleated RBC % Seg Neutrophils # Man Lymphocytes # (Manual) PT INR APTT POC ABG pH POC ABG pCO2 POC ABG pO2 Sodium Chloride Carbon Dioxide BUN 27 H Creatinine 0.6 L Glucose 211 H POC Glucose 340 H 323 H Calcium 7.8 L AST ALT Alkaline Phosphatase Total Creatine Kinase CK-MB (CK-2) Total Protein Albumin 08/11/16 08/11/16 08/11/16 09:58 15:22 17:41 WBC RBC Hgb Hct MCV MCH MCHC RDW Plt Count Lymph % (Auto) Gage % (Auto) Lymph # Gage # Seg Neutrophils % Seg Neuts % (Manual) Lymphocytes % (Manual) Monocytes % (Manual) Nucleated RBC % Seg Neutrophils # Man Lymphocytes # (Manual) PT INR APTT POC ABG pH POC ABG pCO2 POC ABG pO2 Sodium Chloride Carbon Dioxide BUN Creatinine Glucose POC Glucose 295 H 210 H 164 H Calcium AST ALT Alkaline Phosphatase Total Creatine Kinase CK-MB (CK-2) Total Protein Albumin 08/11/16 08/12/16 08/12/16 21:53 01:56 05:15 WBC RBC Hgb Hct MCV MCH MCHC RDW Plt Count Lymph % (Auto) Gage % (Auto) Lymph # Gage # Seg Neutrophils % Seg Neuts % (Manual) Lymphocytes % (Manual) Monocytes % (Manual) Nucleated RBC % Seg Neutrophils # Man Lymphocytes # (Manual) PT INR APTT POC ABG pH POC ABG pCO2 POC ABG pO2 Sodium Chloride Carbon Dioxide BUN Creatinine Glucose POC Glucose 171 H 205 H 156 H Calcium AST ALT Alkaline Phosphatase Total Creatine Kinase CK-MB (CK-2) Total Protein Albumin 08/12/16 08/12/16 08/12/16 10:10 14:33 17:53 WBC RBC Hgb Hct MCV MCH MCHC RDW Plt Count Lymph % (Auto) Gage % (Auto) Lymph # Gage # Seg Neutrophils % Seg Neuts % (Manual) Lymphocytes % (Manual) Monocytes % (Manual) Nucleated RBC % Seg Neutrophils # Man Lymphocytes # (Manual) PT INR APTT POC ABG pH POC ABG pCO2 POC ABG pO2 Sodium Chloride Carbon Dioxide BUN Creatinine Glucose POC Glucose 224 H 245 H 259 H Calcium AST ALT Alkaline Phosphatase Total Creatine Kinase CK-MB (CK-2) Total Protein Albumin 08/12/16 08/13/16 08/13/16 21:56 04:00 04:02 WBC RBC Hgb Hct MCV MCH MCHC RDW Plt Count Lymph % (Auto) Gage % (Auto) Lymph # Gage # Seg Neutrophils % Seg Neuts % (Manual) Lymphocytes % (Manual) Monocytes % (Manual) Nucleated RBC % Seg Neutrophils # Man Lymphocytes # (Manual) PT INR APTT POC ABG pH POC ABG pCO2 POC ABG pO2 Sodium 136 L Chloride 97.2 L Carbon Dioxide BUN 26 H Creatinine 0.6 L Glucose 185 H POC Glucose 229 H 202 H Calcium 7.3 L AST ALT Alkaline Phosphatase Total Creatine Kinase CK-MB (CK-2) Total Protein Albumin 08/13/16 08/13/16 08/13/16 06:47 09:53 13:40 WBC RBC Hgb Hct MCV MCH MCHC RDW Plt Count Lymph % (Auto) Gage % (Auto) Lymph # Gage # Seg Neutrophils % Seg Neuts % (Manual) Lymphocytes % (Manual) Monocytes % (Manual) Nucleated RBC % Seg Neutrophils # Man Lymphocytes # (Manual) PT INR APTT POC ABG pH POC ABG pCO2 POC ABG pO2 Sodium Chloride Carbon Dioxide BUN Creatinine Glucose POC Glucose 191 H 221 H 225 H Calcium AST ALT Alkaline Phosphatase Total Creatine Kinase CK-MB (CK-2) Total Protein Albumin 08/13/16 08/13/16 08/13/16 17:07 21:09 Unknown WBC RBC 3.53 L Hgb 8.9 L Hct 28.4 L MCV 81 L MCH 25 L MCHC 31 L RDW 19.2 H Plt Count Lymph % (Auto) Gage % (Auto) Lymph # Gage # Seg Neutrophils % Seg Neuts % (Manual) Lymphocytes % (Manual) Monocytes % (Manual) Nucleated RBC % Seg Neutrophils # Man Lymphocytes # (Manual) PT INR APTT POC ABG pH POC ABG pCO2 POC ABG pO2 Sodium Chloride Carbon Dioxide BUN Creatinine Glucose POC Glucose 232 H 166 H Calcium AST ALT Alkaline Phosphatase Total Creatine Kinase CK-MB (CK-2) Total Protein Albumin 08/14/16 08/14/16 08/14/16 01:42 05:16 08:57 WBC RBC Hgb Hct MCV MCH MCHC RDW Plt Count Lymph % (Auto) Gage % (Auto) Lymph # Gage # Seg Neutrophils % Seg Neuts % (Manual) Lymphocytes % (Manual) Monocytes % (Manual) Nucleated RBC % Seg Neutrophils # Man Lymphocytes # (Manual) PT INR APTT POC ABG pH POC ABG pCO2 POC ABG pO2 Sodium Chloride Carbon Dioxide BUN Creatinine Glucose POC Glucose 172 H 182 H 233 H Calcium AST ALT Alkaline Phosphatase Total Creatine Kinase CK-MB (CK-2) Total Protein Albumin
[2016-08-14 12:52] LABS: Alanine Aminotransferase 79 units/L (7-56); Albumin 2.1 g/dL (3.9-5); Albumin/Globulin Ratio 0.5 %; Alkaline Phosphatase 1015 units/L (35-129); Anion Gap 18 mmol/L; BUN/Creatinine Ratio 44.28; Blood Urea Nitrogen 31 mg/dL (9-20); Calcium 7.4 mg/dL (8.4-10.2); Carbon Dioxide 25 mmol/L (22-30); Glucose 271 mg/dL (75-100); Potassium 4.6 mmol/L (3.6-5.0); Sodium 135 mmol/L (137-145); Total Protein 6.1 g/dL (6.3-8.2)
--- NOTE | 2016-08-14 14:04 | Progress Note ---
Assessment and Plan - Patient Problems (1) Altered mental status Current Visit: Yes Status: Acute Qualifiers: Altered mental status type: stupor Coma depth: C Coma timing: C Qualified Code(s): R40.1 - Stupor Plan to address problem: No infectious etiology has been found. No pleocytosis on CSF analysis. Continue supportive management. (2) Acute respiratory failure Current Visit: Yes Status: Acute Qualifiers: Respiratory failure complication: hypoxia Qualified Code(s): J96.01 - Acute respiratory failure with hypoxia Plan to address problem: Patient has completed course of antibiotics. Continue to monitor clinically. Subjective Date of service: 08/14/16 Principal diagnosis: acute respiratory failure, encephalopathy Interval history: Remains in ICU. SLow neurologic improvements with intermittent low-grade fevers. Objective - Constitutional Vitals: Vital Signs Temp Pulse Resp BP Pulse Ox 99.1 F 85 19 113/49 97 08/14/16 12:00 08/14/16 12:00 08/14/16 12:00 08/14/16 12:00 08/14/16 12:00 Temperature -Last 24 Hours Temperature 99.1 F Temperature 99.6 F Temperature 100.9 F Temperature 100.8 F Temperature 100 F Temperature 99.8 F Temperature 99.7 F General appearance: Present: other (awake, intubated, FiO2 30%) - EENT Eyes: no conjunctival injection ENT: other (ET tube) - Respiratory Respiratory effort: normal Respiratory: bilateral: CTA, negative: rales - Cardiovascular Rhythm: regular Heart Sounds: Present: S1 & S2 Extremities: No edema - Gastrointestinal General gastrointestinal: Present: soft, non-distended, hypoactive bowel sounds Rectal Exam: other (rectal tube with watery brown stool) - Genitourinary Male genitourinary: normal (Carter with yellow urine) - Integumentary Integumentary: clear, no rash - Labs CBC & Chem 7: 08/13/16 Unknown 08/14/16 11:30 Labs: Abnormal lab results 08/13/16 08/13/16 08/13/16 Range/Units 13:40 17:07 21:09 Sodium (137-145) mmol/L Chloride (98-107) mmol/L BUN (9-20) mg/dL Creatinine (0.8-1.5) mg/dL Glucose (75-100) mg/dL POC Glucose 225 H 232 H 166 H (70-105) Calcium (8.4-10.2) mg/dL AST (5-40) units/L ALT (7-56) units/L Alkaline Phosphatase (35-129) units/L Total Protein (6.3-8.2) g/dL Albumin (3.9-5) g/dL 08/14/16 08/14/16 08/14/16 Range/Units 01:42 05:16 08:57 Sodium (137-145) mmol/L Chloride (98-107) mmol/L BUN (9-20) mg/dL Creatinine (0.8-1.5) mg/dL Glucose (75-100) mg/dL POC Glucose 172 H 182 H 233 H (70-105) Calcium (8.4-10.2) mg/dL AST (5-40) units/L ALT (7-56) units/L Alkaline Phosphatase (35-129) units/L Total Protein (6.3-8.2) g/dL Albumin (3.9-5) g/dL 08/14/16 Range/Units 11:30 Sodium 135 L (137-145) mmol/L Chloride 97.0 L (98-107) mmol/L BUN 31 H (9-20) mg/dL Creatinine 0.7 L (0.8-1.5) mg/dL Glucose 271 H (75-100) mg/dL POC Glucose (70-105) Calcium 7.4 L (8.4-10.2) mg/dL AST 86 H (5-40) units/L ALT 79 H (7-56) units/L Alkaline Phosphatase 1015 H (35-129) units/L Total Protein 6.1 L (6.3-8.2) g/dL Albumin 2.1 L (3.9-5) g/dL Microbiology 08/04/16 11:54 Cerebral Spinal Fluid CSF Culture - Final 08/04/16 11:54 Cerebral Spinal Fluid Cryptococcal Antigen - Final 08/03/16 Unknown Tracheal Aspirate Sputum Culture - Final Pseudomonas Aeruginosa Escherichia Coli 08/01/16 13:18 Peripheral/Venous Blood Culture - Final NO GROWTH AFTER 5 DAYS 08/01/16 10:57 Peripheral/Venous Blood Culture - Final NO GROWTH AFTER 5 DAYS 07/30/16 23:34 Tracheal Aspirate Sputum Culture - Final
--- NOTE | 2016-08-14 16:58 | Progress Note ---
Assessment and Plan Respiratory failure with prolonged vent dependence. Trach and PEG plan for . We'll preop in the a.m. Continue supportive care. We'll follow. Subjective Date of service: 08/14/16 Patient Reports: Positive: afebrile, other (no acute events) Objective Vital Signs - 12hr 08/14/16 08/14/16 08/14/16 05:00 06:00 07:00 Temperature Pulse Rate 98 H 100 H 97 H Respiratory 21 25 H 24 Rate Blood Pressure 136/63 143/67 139/64 O2 Sat by Pulse 99 98 99 Oximetry 08/14/16 08/14/16 08/14/16 08:00 08:21 08:34 Temperature 99.6 F Pulse Rate 100 H 81 91 H Respiratory 21 25 H 19 Rate Blood Pressure 139/64 135/49 134/59 O2 Sat by Pulse 100 97 99 Oximetry 08/14/16 08/14/16 08/14/16 09:00 09:43 10:00 Temperature Pulse Rate 83 80 103 H Respiratory 18 20 15 Rate Blood Pressure 136/56 136/56 136/56 O2 Sat by Pulse 96 96 100 Oximetry 08/14/16 08/14/16 08/14/16 11:00 11:16 12:00 Temperature 99.1 F Pulse Rate 80 86 85 Respiratory 19 19 19 Rate Blood Pressure 146/61 113/49 113/49 O2 Sat by Pulse 99 98 97 Oximetry 08/14/16 08/14/16 08/14/16 13:00 14:00 15:00 Temperature Pulse Rate 87 82 86 Respiratory 18 17 11 L Rate Blood Pressure 122/69 132/60 125/63 O2 Sat by Pulse 95 97 96 Oximetry 08/14/16 15:36 Temperature Pulse Rate 79 Respiratory 19 Rate Blood Pressure 125/63 O2 Sat by Pulse 97 Oximetry - Respiratory normal expansion, normal respiratory effort (review percent FiO2) - Abdomen soft, not tender - Psychiatric other (nonresponsive) - Labs 08/13/16 Unknown 08/14/16 11:30 Diabetes panel 08/14/16 Range/Units 11:30 Sodium 135 L (137-145) mmol/L Potassium 4.6 (3.6-5.0) mmol/L Chloride 97.0 L (98-107) mmol/L Carbon Dioxide 25 (22-30) mmol/L BUN 31 H (9-20) mg/dL Creatinine 0.7 L (0.8-1.5) mg/dL Glucose 271 H (75-100) mg/dL Calcium 7.4 L (8.4-10.2) mg/dL AST 86 H (5-40) units/L ALT 79 H (7-56) units/L Alkaline Phosphatase 1015 H (35-129) units/L Total Protein 6.1 L (6.3-8.2) g/dL Albumin 2.1 L (3.9-5) g/dL Calcium panel 08/14/16 Range/Units 11:30 Calcium 7.4 L (8.4-10.2) mg/dL Albumin 2.1 L (3.9-5) g/dL Pituitary panel 08/14/16 Range/Units 11:30 Sodium 135 L (137-145) mmol/L Potassium 4.6 (3.6-5.0) mmol/L Chloride 97.0 L (98-107) mmol/L Carbon Dioxide 25 (22-30) mmol/L BUN 31 H (9-20) mg/dL Creatinine 0.7 L (0.8-1.5) mg/dL Glucose 271 H (75-100) mg/dL Calcium 7.4 L (8.4-10.2) mg/dL Adrenal panel 08/14/16 Range/Units 11:30 Sodium 135 L (137-145) mmol/L Potassium 4.6 (3.6-5.0) mmol/L Chloride 97.0 L (98-107) mmol/L Carbon Dioxide 25 (22-30) mmol/L BUN 31 H (9-20) mg/dL Creatinine 0.7 L (0.8-1.5) mg/dL Glucose 271 H (75-100) mg/dL Calcium 7.4 L (8.4-10.2) mg/dL Total Bilirubin 0.30 (0.1-1.2) mg/dL AST 86 H (5-40) units/L ALT 79 H (7-56) units/L Alkaline Phosphatase 1015 H (35-129) units/L Total Protein 6.1 L (6.3-8.2) g/dL Albumin 2.1 L (3.9-5) g/dL
[2016-08-15 05:22] LABS: Hematocrit 28.8 % (35.5-45.6); Hemoglobin 9.1 gm/dl (11.8-15.2); Mean Corpuscular HGB Conc 32 % (32-34); Mean Corpuscular Hemoglobin 25 pg (28-32); Mean Corpuscular Volume 79 fl (84-94); Platelet Count 216 K/mm3 (140-440); Red Blood Count 3.65 M/mm3 (3.65-5.03); Red Cell Distribution Width 19.1 % (13.2-15.2); White Blood Count 10.5 K/mm3 (4.5-11.0)
[2016-08-15 05:52] LABS: Alanine Aminotransferase 77 units/L (7-56); Albumin 2.2 g/dL (3.9-5); Albumin/Globulin Ratio 0.6 %; Alkaline Phosphatase 1075 units/L (35-129); Anion Gap 15 mmol/L; BUN/Creatinine Ratio 58.33; Blood Urea Nitrogen 35 mg/dL (9-20); Calcium 7.6 mg/dL (8.4-10.2); Carbon Dioxide 26 mmol/L (22-30); Chloride 96.2 mmol/L (98-107); Glucose 168 mg/dL (75-100); Potassium 4.4 mmol/L (3.6-5.0); Sodium 133 mmol/L (137-145); Total Protein 6.2 g/dL (6.3-8.2)
--- NOTE | 2016-08-15 08:50 | Progress Note ---
Assessment and Plan - Patient Problems (1) Altered mental status Current Visit: Yes Status: Acute Qualifiers: Altered mental status type: stupor Coma depth: C Coma timing: C Qualified Code(s): R40.1 - Stupor Plan to address problem: 1. No evidence of an infectious etiology for AMC, which is slowly improving. 2. I will sign off. Please call again if there are further questions or concerns. (2) Acute respiratory failure Current Visit: Yes Status: Acute Qualifiers: Respiratory failure complication: hypoxia Qualified Code(s): J96.01 - Acute respiratory failure with hypoxia Plan to address problem: 1. Patient has completed a course of IV and inhaled antimicrobials. 2. Continue to follow clinically. Currently without signs of ongoing infection. Subjective Date of service: 08/15/16 Principal diagnosis: acute respiratory failure, encephalopathy Interval history: No new events. Patient remains intubated in ICU. Objective - Constitutional Vitals: Vital Signs Temp Pulse Resp BP Pulse Ox 99.3 F 79 13 125/56 96 08/15/16 08:00 08/15/16 08:00 08/15/16 08:00 08/15/16 08:00 08/15/16 08:00 Temperature -Last 24 Hours Temperature 99.3 F Temperature 98.7 F Temperature 100.1 F Temperature 98.5 F Temperature 99.9 F Temperature 99.1 F General appearance: Present: other (intubated, FiO2 30%; opens eyes briefly to voice and tactile stimuli) - EENT Eyes: no conjunctival injection - Respiratory Respiratory: bilateral: CTA, negative: rales, rhonchi - Cardiovascular Rhythm: regular Heart Sounds: Present: S1 & S2 Extremities: No edema - Gastrointestinal General gastrointestinal: Present: soft, non-distended, hypoactive bowel sounds Rectal Exam: other (rectal tube with watery brown stool) - Genitourinary Male genitourinary: normal (Carter with yellow urine) - Integumentary Integumentary: clear, no rash - Musculoskeletal Musculoskeletal: other (upper extremity wrist restraints) - Additional findings Additional findings: PICC left arm without inflammation - Labs CBC & Chem 7: 08/15/16 04:55 08/15/16 04:55 Labs: Abnormal lab results 08/14/16 08/14/16 08/14/16 Range/Units 08:57 11:30 14:09 Hgb (11.8-15.2) gm/dl Hct (35.5-45.6) % MCV (84-94) fl MCH (28-32) pg RDW (13.2-15.2) % Sodium 135 L (137-145) mmol/L Chloride 97.0 L (98-107) mmol/L BUN 31 H (9-20) mg/dL Creatinine 0.7 L (0.8-1.5) mg/dL Glucose 271 H (75-100) mg/dL POC Glucose 233 H 302 H (70-105) Calcium 7.4 L (8.4-10.2) mg/dL AST 86 H (5-40) units/L ALT 79 H (7-56) units/L Alkaline Phosphatase 1015 H (35-129) units/L Total Protein 6.1 L (6.3-8.2) g/dL Albumin 2.1 L (3.9-5) g/dL 08/14/16 08/14/16 08/15/16 Range/Units 17:48 22:26 01:58 Hgb (11.8-15.2) gm/dl Hct (35.5-45.6) % MCV (84-94) fl MCH (28-32) pg RDW (13.2-15.2) % Sodium (137-145) mmol/L Chloride (98-107) mmol/L BUN (9-20) mg/dL Creatinine (0.8-1.5) mg/dL Glucose (75-100) mg/dL POC Glucose 260 H 188 H 200 H (70-105) Calcium (8.4-10.2) mg/dL AST (5-40) units/L ALT (7-56) units/L Alkaline Phosphatase (35-129) units/L Total Protein (6.3-8.2) g/dL Albumin (3.9-5) g/dL 08/15/16 08/15/16 Range/Units 04:55 04:55 Hgb 9.1 L (11.8-15.2) gm/dl Hct 28.8 L (35.5-45.6) % MCV 79 L (84-94) fl MCH 25 L (28-32) pg RDW 19.1 H (13.2-15.2) % Sodium 133 L (137-145) mmol/L Chloride 96.2 L (98-107) mmol/L BUN 35 H (9-20) mg/dL Creatinine 0.6 L (0.8-1.5) mg/dL Glucose 168 H (75-100) mg/dL POC Glucose (70-105) Calcium 7.6 L (8.4-10.2) mg/dL AST 87 H (5-40) units/L ALT 77 H (7-56) units/L Alkaline Phosphatase 1075 H (35-129) units/L Total Protein 6.2 L (6.3-8.2) g/dL Albumin 2.2 L (3.9-5) g/dL - Imaging and cardiology Abdominal x-ray: report reviewed (tip of NG tube in stomach)
--- NOTE | 2016-08-15 09:16 | Progress Note ---
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 1. Trach sometime this week. 2. Continue Daily PSV trials and AC rest at night 3. Appreciate neuro help. Feel patient is better and they agree with trach and peg. 4. Blood sugars better with increased levemir. 5. Will continue to follow along with you CCT 31 minutes. Subjective Date of service: 08/15/16 Principal diagnosis: acute respiratory failure, encephalopathy Interval history: No acute events. Stable. Objective Vital Signs - 12hr 08/14/16 08/14/16 08/14/16 21:20 22:00 23:00 Temperature Pulse Rate 85 83 79 Pulse Rate [ None] Respiratory 21 14 17 Rate Blood Pressure 133/57 129/62 134/61 O2 Sat by Pulse 99 98 98 Oximetry 08/14/16 08/15/16 08/15/16 23:53 00:00 01:00 Temperature 100.1 F H Pulse Rate 82 86 Pulse Rate [ None] Respiratory 17 11 L Rate Blood Pressure 127/57 132/64 O2 Sat by Pulse 97 99 Oximetry 08/15/16 08/15/16 08/15/16 01:27 02:00 03:00 Temperature Pulse Rate 83 80 88 Pulse Rate [ None] Respiratory 16 14 Rate Blood Pressure 132/64 133/66 129/60 O2 Sat by Pulse 99 98 97 Oximetry 08/15/16 08/15/16 08/15/16 04:00 04:11 05:00 Temperature 98.7 F Pulse Rate 88 84 81 Pulse Rate [ 74 None] Respiratory 14 17 Rate Blood Pressure 133/61 133/61 126/60 O2 Sat by Pulse 98 98 97 Oximetry 08/15/16 08/15/16 08/15/16 06:00 07:00 08:00 Temperature 99.3 F Pulse Rate 81 84 79 Pulse Rate [ None] Respiratory 16 17 13 Rate Blood Pressure 118/56 116/58 125/56 O2 Sat by Pulse 95 94 96 Oximetry Constitutional: no acute distress, other (intubated, ) Eyes: other (pupils are equal, very slowly reactive) ENT: other (orally intubated) Neck: supple, no JVD Ascultation: Bilateral: clear, diminished breath sounds Gastrointestinal: normoactive bowel sounds, soft, non-distended Integumentary: normal Extremities: no cyanosis, no edema Neurologic: other (no changes) CBC and BMP: 08/15/16 04:55 08/15/16 04:55 ABG, PT/INR, D-dimer: ABG POC ABG pH 7.441 (7.35-7.45) 08/14/16 09:52 POC ABG pCO2 39.5 (35-45) 08/14/16 09:52 POC ABG pO2 85 (80-105) 08/14/16 09:52 POC ABG HCO3 26.9 08/14/16 09:52 POC ABG Total CO2 28 08/14/16 09:52 POC ABG O2 Sat 97 08/14/16 09:52 PT/INR, D-dimer PT 17.2 Sec. (12.2-14.9) H 08/07/16 07:30 INR 1.41 (0.87-1.13) H 08/07/16 07:30 Abnormal lab findings: Abnormal Labs 07/31/16 07/31/16 07/31/16 08:39 10:07 12:07 WBC RBC Hgb Hct MCV MCH MCHC RDW Plt Count Lymph % (Auto) Story % (Auto) Lymph # Story # Seg Neutrophils % Seg Neuts % (Manual) Lymphocytes % (Manual) Monocytes % (Manual) Nucleated RBC % Seg Neutrophils # Man Lymphocytes # (Manual) PT INR APTT POC ABG pH POC ABG pCO2 POC ABG pO2 Sodium Chloride Carbon Dioxide BUN Creatinine Glucose POC Glucose 205 H 188 H Calcium AST ALT Alkaline Phosphatase Total Creatine Kinase 865 H CK-MB (CK-2) 5.9 H Total Protein Albumin 07/31/16 07/31/16 07/31/16 16:19 19:58 23:53 WBC RBC Hgb Hct MCV MCH MCHC RDW Plt Count Lymph % (Auto) Story % (Auto) Lymph # Story # Seg Neutrophils % Seg Neuts % (Manual) Lymphocytes % (Manual) Monocytes % (Manual) Nucleated RBC % Seg Neutrophils # Man Lymphocytes # (Manual) PT INR APTT POC ABG pH POC ABG pCO2 POC ABG pO2 Sodium Chloride Carbon Dioxide BUN Creatinine Glucose POC Glucose 195 H 147 H 160 H Calcium AST ALT Alkaline Phosphatase Total Creatine Kinase CK-MB (CK-2) Total Protein Albumin 0608/01/16 08/01/16 04:18 04:42 07:45 WBC 14.8 H RBC Hgb 10.7 L Hct 34.9 L MCV 82 L MCH 25 L MCHC 31 L RDW 19.1 H Plt Count Lymph % (Auto) Story % (Auto) Lymph # Story # Seg Neutrophils % Seg Neuts % (Manual) 80.0 H Lymphocytes % (Manual) 12.0 L Monocytes % (Manual) Nucleated RBC % Seg Neutrophils # Man 11.8 H Lymphocytes # (Manual) PT INR APTT POC ABG pH POC ABG pCO2 33.4 L POC ABG pO2 66 L Sodium Chloride Carbon Dioxide BUN Creatinine Glucose POC Glucose 225 H Calcium AST ALT Alkaline Phosphatase Total Creatine Kinase CK-MB (CK-2) Total Protein Albumin 08/01/16 08/01/16 08/01/16 07:45 10:09 10:59 WBC RBC Hgb Hct MCV MCH MCHC RDW Plt Count Lymph % (Auto) Story % (Auto) Lymph # Story # Seg Neutrophils % Seg Neuts % (Manual) Lymphocytes % (Manual) Monocytes % (Manual) Nucleated RBC % Seg Neutrophils # Man Lymphocytes # (Manual) PT INR APTT POC ABG pH POC ABG pCO2 POC ABG pO2 Sodium Chloride Carbon Dioxide BUN 29 H Creatinine Glucose 233 H POC Glucose 266 H 318 H Calcium 7.6 L AST ALT Alkaline Phosphatase Total Creatine Kinase CK-MB (CK-2) Total Protein Albumin 08/01/16 08/01/16 08/01/16 14:24 17:56 21:21 WBC RBC Hgb Hct MCV MCH MCHC RDW Plt Count Lymph % (Auto) Story % (Auto) Lymph # Story # Seg Neutrophils % Seg Neuts % (Manual) Lymphocytes % (Manual) Monocytes % (Manual) Nucleated RBC % Seg Neutrophils # Man Lymphocytes # (Manual) PT INR APTT POC ABG pH POC ABG pCO2 POC ABG pO2 Sodium Chloride Carbon Dioxide BUN Creatinine Glucose POC Glucose 298 H 239 H 203 H Calcium AST ALT Alkaline Phosphatase Total Creatine Kinase CK-MB (CK-2) Total Protein Albumin 08/02/16 08/02/16 08/02/16 02:05 03:55 05:38 WBC RBC Hgb Hct MCV MCH MCHC RDW Plt Count Lymph % (Auto) Story % (Auto) Lymph # Story # Seg Neutrophils % Seg Neuts % (Manual) Lymphocytes % (Manual) Monocytes % (Manual) Nucleated RBC % Seg Neutrophils # Man Lymphocytes # (Manual) PT INR APTT POC ABG pH 7.460 H POC ABG pCO2 31.2 L POC ABG pO2 71 L Sodium Chloride Carbon Dioxide BUN Creatinine Glucose POC Glucose 248 H 253 H Calcium AST ALT Alkaline Phosphatase Total Creatine Kinase CK-MB (CK-2) Total Protein Albumin 08/02/16 08/02/16 08/02/16 09:11 09:44 09:44 WBC RBC 3.62 L Hgb 9.4 L Hct 29.1 L MCV 80 L MCH 26 L MCHC RDW 18.7 H Plt Count Lymph % (Auto) Story % (Auto) 9.2 H Lymph # Story # 1.0 H Seg Neutrophils % 72.0 H Seg Neuts % (Manual) Lymphocytes % (Manual) Monocytes % (Manual) Nucleated RBC % Seg Neutrophils # Man Lymphocytes # (Manual) PT INR APTT POC ABG pH POC ABG pCO2 POC ABG pO2 Sodium 135 L Chloride Carbon Dioxide 21 L BUN 42 H Creatinine Glucose 248 H POC Glucose 306 H Calcium 7.6 L AST ALT Alkaline Phosphatase Total Creatine Kinase CK-MB (CK-2) Total Protein Albumin 08/02/16 08/02/16 08/02/16 15:53 17:33 21:39 WBC RBC Hgb Hct MCV MCH MCHC RDW Plt Count Lymph % (Auto) Story % (Auto) Lymph # Story # Seg Neutrophils % Seg Neuts % (Manual) Lymphocytes % (Manual) Monocytes % (Manual) Nucleated RBC % Seg Neutrophils # Man Lymphocytes # (Manual) PT INR APTT POC ABG pH POC ABG pCO2 POC ABG pO2 Sodium Chloride Carbon Dioxide BUN Creatinine Glucose POC Glucose 205 H 250 H 282 H Calcium AST ALT Alkaline Phosphatase Total Creatine Kinase CK-MB (CK-2) Total Protein Albumin 08/03/16 08/03/16 08/03/16 02:28 05:47 07:05 WBC RBC 3.32 L Hgb 8.4 L Hct 26.5 L MCV 80 L MCH 25 L MCHC RDW 18.7 H Plt Count 112 L Lymph % (Auto) 12.5 L Story % (Auto) 10.2 H Lymph # 1.0 L Story # Seg Neutrophils % 75.9 H Seg Neuts % (Manual) Lymphocytes % (Manual) Monocytes % (Manual) Nucleated RBC % Seg Neutrophils # Man Lymphocytes # (Manual) PT INR APTT POC ABG pH POC ABG pCO2 POC ABG pO2 Sodium Chloride Carbon Dioxide BUN Creatinine Glucose POC Glucose 317 H 253 H Calcium AST ALT Alkaline Phosphatase Total Creatine Kinase CK-MB (CK-2) Total Protein Albumin 08/03/16 08/03/16 08/03/16 07:05 09:50 14:07 WBC RBC Hgb Hct MCV MCH MCHC RDW Plt Count Lymph % (Auto) Story % (Auto) Lymph # Story # Seg Neutrophils % Seg Neuts % (Manual) Lymphocytes % (Manual) Monocytes % (Manual) Nucleated RBC % Seg Neutrophils # Man Lymphocytes # (Manual) PT INR APTT POC ABG pH POC ABG pCO2 POC ABG pO2 Sodium 132 L Chloride Carbon Dioxide 20 L BUN 42 H Creatinine Glucose 243 H POC Glucose 332 H 345 H Calcium 6.8 L AST ALT Alkaline Phosphatase Total Creatine Kinase CK-MB (CK-2) Total Protein Albumin 08/03/16 08/03/16 08/04/16 17:38 21:36 02:18 WBC RBC Hgb Hct MCV MCH MCHC RDW Plt Count Lymph % (Auto) Story % (Auto) Lymph # Story # Seg Neutrophils % Seg Neuts % (Manual) Lymphocytes % (Manual) Monocytes % (Manual) Nucleated RBC % Seg Neutrophils # Man Lymphocytes # (Manual) PT INR APTT POC ABG pH POC ABG pCO2 POC ABG pO2 Sodium Chloride Carbon Dioxide BUN Creatinine Glucose POC Glucose 262 H 260 H 256 H Calcium AST ALT Alkaline Phosphatase Total Creatine Kinase CK-MB (CK-2) Total Protein Albumin 08/04/16 08/04/16 08/04/16 05:41 06:00 10:20 WBC RBC Hgb Hct MCV MCH MCHC RDW Plt Count Lymph % (Auto) Story % (Auto) Lymph # Story # Seg Neutrophils % Seg Neuts % (Manual) Lymphocytes % (Manual) Monocytes % (Manual) Nucleated RBC % Seg Neutrophils # Man Lymphocytes # (Manual) PT INR APTT POC ABG pH POC ABG pCO2 POC ABG pO2 Sodium Chloride Carbon Dioxide BUN 34 H Creatinine 0.7 L Glucose 237 H POC Glucose 265 H 266 H Calcium 7.9 L D AST ALT Alkaline Phosphatase Total Creatine Kinase CK-MB (CK-2) Total Protein Albumin 08/04/16 08/04/16 08/04/16 14:20 17:31 21:52 WBC RBC Hgb Hct MCV MCH MCHC RDW Plt Count Lymph % (Auto) Story % (Auto) Lymph # Story # Seg Neutrophils % Seg Neuts % (Manual) Lymphocytes % (Manual) Monocytes % (Manual) Nucleated RBC % Seg Neutrophils # Man Lymphocytes # (Manual) PT INR APTT POC ABG pH POC ABG pCO2 POC ABG pO2 Sodium Chloride Carbon Dioxide BUN Creatinine Glucose POC Glucose 302 H 337 H 340 H Calcium AST ALT Alkaline Phosphatase Total Creatine Kinase CK-MB (CK-2) Total Protein Albumin 08/05/16 08/05/16 08/05/16 01:43 05:00 05:00 WBC RBC Hgb 9.5 L Hct 30.1 L MCV 81 L MCH 26 L MCHC RDW 19.1 H Plt Count 112 L Lymph % (Auto) Story % (Auto) Lymph # Story # Seg Neutrophils % Seg Neuts % (Manual) Lymphocytes % (Manual) Monocytes % (Manual) Nucleated RBC % Seg Neutrophils # Man Lymphocytes # (Manual) PT INR APTT POC ABG pH POC ABG pCO2 POC ABG pO2 Sodium Chloride Carbon Dioxide BUN 27 H Creatinine 0.7 L Glucose 212 H POC Glucose 247 H Calcium 8.3 L AST 92 H ALT 81 H Alkaline Phosphatase 629 H Total Creatine Kinase CK-MB (CK-2) Total Protein 5.9 L Albumin 2.2 L 08/05/16 08/05/16 08/05/16 05:14 05:19 10:12 WBC RBC Hgb Hct MCV MCH MCHC RDW Plt Count Lymph % (Auto) Story % (Auto) Lymph # Story # Seg Neutrophils % Seg Neuts % (Manual) Lymphocytes % (Manual) Monocytes % (Manual) Nucleated RBC % Seg Neutrophils # Man Lymphocytes # (Manual) PT INR APTT POC ABG pH 7.469 H POC ABG pCO2 POC ABG pO2 109 H Sodium Chloride Carbon Dioxide BUN Creatinine Glucose POC Glucose 208 H 206 H Calcium AST ALT Alkaline Phosphatase Total Creatine Kinase CK-MB (CK-2) Total Protein Albumin 08/05/16 08/05/16 08/05/16 13:54 18:31 22:06 WBC RBC Hgb Hct MCV MCH MCHC RDW Plt Count Lymph % (Auto) Story % (Auto) Lymph # Story # Seg Neutrophils % Seg Neuts % (Manual) Lymphocytes % (Manual) Monocytes % (Manual) Nucleated RBC % Seg Neutrophils # Man Lymphocytes # (Manual) PT INR APTT POC ABG pH POC ABG pCO2 POC ABG pO2 Sodium Chloride Carbon Dioxide BUN Creatinine Glucose POC Glucose 226 H 229 H 245 H Calcium AST ALT Alkaline Phosphatase Total Creatine Kinase CK-MB (CK-2) Total Protein Albumin 08/06/16 08/06/16 08/06/16 02:03 05:31 05:42 WBC RBC Hgb Hct MCV MCH MCHC RDW Plt Count Lymph % (Auto) Story % (Auto) Lymph # Story # Seg Neutrophils % Seg Neuts % (Manual) Lymphocytes % (Manual) Monocytes % (Manual) Nucleated RBC % Seg Neutrophils # Man Lymphocytes # (Manual) PT INR APTT POC ABG pH POC ABG pCO2 POC ABG pO2 62 L Sodium Chloride Carbon Dioxide BUN Creatinine Glucose POC Glucose 237 H 205 H Calcium AST ALT Alkaline Phosphatase Total Creatine Kinase CK-MB (CK-2) Total Protein Albumin 08/06/16 08/06/16 08/06/16 09:36 11:30 14:23 WBC RBC Hgb Hct MCV MCH MCHC RDW Plt Count Lymph % (Auto) Story % (Auto) Lymph # Story # Seg Neutrophils % Seg Neuts % (Manual) Lymphocytes % (Manual) Monocytes % (Manual) Nucleated RBC % Seg Neutrophils # Man Lymphocytes # (Manual) PT 18.9 H INR 1.59 H APTT 39.7 H POC ABG pH POC ABG pCO2 POC ABG pO2 Sodium Chloride Carbon Dioxide BUN Creatinine Glucose POC Glucose 279 H 264 H Calcium AST ALT Alkaline Phosphatase Total Creatine Kinase CK-MB (CK-2) Total Protein Albumin 08/06/16 08/07/16 08/07/16 18:07 03:01 05:18 WBC RBC Hgb Hct MCV MCH MCHC RDW Plt Count Lymph % (Auto) Story % (Auto) Lymph # Story # Seg Neutrophils % Seg Neuts % (Manual) Lymphocytes % (Manual) Monocytes % (Manual) Nucleated RBC % Seg Neutrophils # Man Lymphocytes # (Manual) PT INR APTT POC ABG pH 7.459 H POC ABG pCO2 POC ABG pO2 Sodium Chloride Carbon Dioxide BUN Creatinine Glucose POC Glucose 176 H 172 H Calcium AST ALT Alkaline Phosphatase Total Creatine Kinase CK-MB (CK-2) Total Protein Albumin 08/07/16 08/07/16 08/07/16 05:32 07:30 07:30 WBC RBC 3.39 L Hgb 8.6 L Hct 27.2 L MCV 80 L MCH 25 L MCHC RDW 19.1 H Plt Count 136 L Lymph % (Auto) Story % (Auto) Lymph # Story # Seg Neutrophils % Seg Neuts % (Manual) 84.0 H Lymphocytes % (Manual) 4.0 L Monocytes % (Manual) 8.0 H Nucleated RBC % Seg Neutrophils # Man 8.2 H Lymphocytes # (Manual) 0.4 L PT 17.2 H INR 1.41 H APTT POC ABG pH POC ABG pCO2 POC ABG pO2 Sodium Chloride Carbon Dioxide BUN Creatinine Glucose POC Glucose 204 H Calcium AST ALT Alkaline Phosphatase Total Creatine Kinase CK-MB (CK-2) Total Protein Albumin 08/07/16 08/07/16 08/07/16 07:30 10:03 14:35 WBC RBC Hgb Hct MCV MCH MCHC RDW Plt Count Lymph % (Auto) Story % (Auto) Lymph # Story # Seg Neutrophils % Seg Neuts % (Manual) Lymphocytes % (Manual) Monocytes % (Manual) Nucleated RBC % Seg Neutrophils # Man Lymphocytes # (Manual) PT INR APTT POC ABG pH POC ABG pCO2 POC ABG pO2 Sodium Chloride Carbon Dioxide BUN 27 H Creatinine 0.7 L Glucose 201 H POC Glucose 233 H 255 H Calcium 7.9 L AST 73 H ALT 74 H Alkaline Phosphatase 595 H Total Creatine Kinase CK-MB (CK-2) Total Protein 5.1 L Albumin 1.8 L 08/07/16 08/07/16 08/08/16 16:09 22:01 01:27 WBC RBC Hgb Hct MCV MCH MCHC RDW Plt Count Lymph % (Auto) Story % (Auto) Lymph # Story # Seg Neutrophils % Seg Neuts % (Manual) Lymphocytes % (Manual) Monocytes % (Manual) Nucleated RBC % Seg Neutrophils # Man Lymphocytes # (Manual) PT INR APTT POC ABG pH POC ABG pCO2 POC ABG pO2 Sodium Chloride Carbon Dioxide BUN Creatinine Glucose POC Glucose 259 H 255 H 252 H Calcium AST ALT Alkaline Phosphatase Total Creatine Kinase CK-MB (CK-2) Total Protein Albumin 08/08/16 08/08/16 08/08/16 05:13 06:23 07:40 WBC RBC 3.36 L Hgb 8.5 L Hct 27.1 L MCV 81 L MCH 25 L MCHC 31 L RDW 18.8 H Plt Count 129 L Lymph % (Auto) Story % (Auto) Lymph # Story # Seg Neutrophils % Seg Neuts % (Manual) Lymphocytes % (Manual) Monocytes % (Manual) Nucleated RBC % 2.0 H Seg Neutrophils # Man Lymphocytes # (Manual) PT INR APTT POC ABG pH 7.460 H POC ABG pCO2 POC ABG pO2 74 L Sodium Chloride Carbon Dioxide BUN Creatinine Glucose POC Glucose 264 H Calcium AST ALT Alkaline Phosphatase Total Creatine Kinase CK-MB (CK-2) Total Protein Albumin 08/08/16 08/08/16 08/08/16 07:40 10:01 15:00 WBC RBC Hgb Hct MCV MCH MCHC RDW Plt Count Lymph % (Auto) Story % (Auto) Lymph # Story # Seg Neutrophils % Seg Neuts % (Manual) Lymphocytes % (Manual) Monocytes % (Manual) Nucleated RBC % Seg Neutrophils # Man Lymphocytes # (Manual) PT INR APTT POC ABG pH POC ABG pCO2 POC ABG pO2 Sodium Chloride Carbon Dioxide BUN 26 H Creatinine 0.7 L Glucose 233 H POC Glucose 271 H 275 H Calcium 7.6 L AST 77 H ALT 71 H Alkaline Phosphatase 658 H Total Creatine Kinase CK-MB (CK-2) Total Protein 5.0 L Albumin 1.6 L 08/08/16 08/08/16 08/08/16 17:28 21:32 23:53 WBC RBC Hgb Hct MCV MCH MCHC RDW Plt Count Lymph % (Auto) Story % (Auto) Lymph # Story # Seg Neutrophils % Seg Neuts % (Manual) Lymphocytes % (Manual) Monocytes % (Manual) Nucleated RBC % Seg Neutrophils # Man Lymphocytes # (Manual) PT INR APTT POC ABG pH POC ABG pCO2 POC ABG pO2 Sodium Chloride Carbon Dioxide BUN Creatinine Glucose POC Glucose 275 H 252 H 246 H Calcium AST ALT Alkaline Phosphatase Total Creatine Kinase CK-MB (CK-2) Total Protein Albumin 08/09/16 08/09/16 08/09/16 03:32 05:00 05:00 WBC RBC 3.34 L Hgb 8.3 L Hct 26.7 L MCV 80 L MCH 25 L MCHC 31 L RDW 18.5 H Plt Count Lymph % (Auto) Story % (Auto) Lymph # Story # Seg Neutrophils % Seg Neuts % (Manual) Lymphocytes % (Manual) Monocytes % (Manual) Nucleated RBC % Seg Neutrophils # Man Lymphocytes # (Manual) PT INR APTT POC ABG pH POC ABG pCO2 POC ABG pO2 Sodium Chloride Carbon Dioxide BUN 25 H Creatinine 0.5 L Glucose 230 H POC Glucose 260 H Calcium 7.6 L AST ALT Alkaline Phosphatase Total Creatine Kinase CK-MB (CK-2) Total Protein Albumin 08/09/16 08/09/16 08/09/16 06:00 10:07 14:07 WBC RBC Hgb Hct MCV MCH MCHC RDW Plt Count Lymph % (Auto) Story % (Auto) Lymph # Story # Seg Neutrophils % Seg Neuts % (Manual) Lymphocytes % (Manual) Monocytes % (Manual) Nucleated RBC % Seg Neutrophils # Man Lymphocytes # (Manual) PT INR APTT POC ABG pH 7.493 H POC ABG pCO2 POC ABG pO2 Sodium Chloride Carbon Dioxide BUN Creatinine Glucose POC Glucose 216 H 220 H Calcium AST ALT Alkaline Phosphatase Total Creatine Kinase CK-MB (CK-2) Total Protein Albumin 08/09/16 08/09/16 08/10/16 16:55 21:07 02:09 WBC RBC Hgb Hct MCV MCH MCHC RDW Plt Count Lymph % (Auto) Story % (Auto) Lymph # Story # Seg Neutrophils % Seg Neuts % (Manual) Lymphocytes % (Manual) Monocytes % (Manual) Nucleated RBC % Seg Neutrophils # Man Lymphocytes # (Manual) PT INR APTT POC ABG pH POC ABG pCO2 POC ABG pO2 Sodium Chloride Carbon Dioxide BUN Creatinine Glucose POC Glucose 242 H 235 H 228 H Calcium AST ALT Alkaline Phosphatase Total Creatine Kinase CK-MB (CK-2) Total Protein Albumin 08/10/16 08/10/16 08/10/16 05:31 09:06 13:45 WBC RBC Hgb Hct MCV MCH MCHC RDW Plt Count Lymph % (Auto) Story % (Auto) Lymph # Story # Seg Neutrophils % Seg Neuts % (Manual) Lymphocytes % (Manual) Monocytes % (Manual) Nucleated RBC % Seg Neutrophils # Man Lymphocytes # (Manual) PT INR APTT POC ABG pH POC ABG pCO2 POC ABG pO2 Sodium Chloride Carbon Dioxide BUN Creatinine Glucose POC Glucose 201 H 229 H 274 H Calcium AST ALT Alkaline Phosphatase Total Creatine Kinase CK-MB (CK-2) Total Protein Albumin 08/10/16 08/10/16 08/10/16 17:53 21:43 Unknown WBC RBC 3.42 L Hgb 8.6 L Hct 27.5 L MCV 80 L MCH 25 L MCHC RDW 19.1 H Plt Count Lymph % (Auto) Story % (Auto) Lymph # Story # Seg Neutrophils % Seg Neuts % (Manual) Lymphocytes % (Manual) Monocytes % (Manual) Nucleated RBC % Seg Neutrophils # Man Lymphocytes # (Manual) PT INR APTT POC ABG pH POC ABG pCO2 POC ABG pO2 Sodium Chloride Carbon Dioxide BUN Creatinine Glucose POC Glucose 284 H 328 H Calcium AST ALT Alkaline Phosphatase Total Creatine Kinase CK-MB (CK-2) Total Protein Albumin 08/10/16 08/11/16 08/11/16 Unknown 01:37 05:39 WBC RBC Hgb Hct MCV MCH MCHC RDW Plt Count Lymph % (Auto) Story % (Auto) Lymph # Story # Seg Neutrophils % Seg Neuts % (Manual) Lymphocytes % (Manual) Monocytes % (Manual) Nucleated RBC % Seg Neutrophils # Man Lymphocytes # (Manual) PT INR APTT POC ABG pH POC ABG pCO2 POC ABG pO2 Sodium Chloride Carbon Dioxide BUN 27 H Creatinine 0.6 L Glucose 211 H POC Glucose 340 H 323 H Calcium 7.8 L AST ALT Alkaline Phosphatase Total Creatine Kinase CK-MB (CK-2) Total Protein Albumin 08/11/16 08/11/16 08/11/16 09:58 15:22 17:41 WBC RBC Hgb Hct MCV MCH MCHC RDW Plt Count Lymph % (Auto) Story % (Auto) Lymph # Story # Seg Neutrophils % Seg Neuts % (Manual) Lymphocytes % (Manual) Monocytes % (Manual) Nucleated RBC % Seg Neutrophils # Man Lymphocytes # (Manual) PT INR APTT POC ABG pH POC ABG pCO2 POC ABG pO2 Sodium Chloride Carbon Dioxide BUN Creatinine Glucose POC Glucose 295 H 210 H 164 H Calcium AST ALT Alkaline Phosphatase Total Creatine Kinase CK-MB (CK-2) Total Protein Albumin 08/11/16 08/12/16 08/12/16 21:53 01:56 05:15 WBC RBC Hgb Hct MCV MCH MCHC RDW Plt Count Lymph % (Auto) Story % (Auto) Lymph # Story # Seg Neutrophils % Seg Neuts % (Manual) Lymphocytes % (Manual) Monocytes % (Manual) Nucleated RBC % Seg Neutrophils # Man Lymphocytes # (Manual) PT INR APTT POC ABG pH POC ABG pCO2 POC ABG pO2 Sodium Chloride Carbon Dioxide BUN Creatinine Glucose POC Glucose 171 H 205 H 156 H Calcium AST ALT Alkaline Phosphatase Total Creatine Kinase CK-MB (CK-2) Total Protein Albumin 08/12/16 08/12/16 08/12/16 10:10 14:33 17:53 WBC RBC Hgb Hct MCV MCH MCHC RDW Plt Count Lymph % (Auto) Story % (Auto) Lymph # Story # Seg Neutrophils % Seg Neuts % (Manual) Lymphocytes % (Manual) Monocytes % (Manual) Nucleated RBC % Seg Neutrophils # Man Lymphocytes # (Manual) PT INR APTT POC ABG pH POC ABG pCO2 POC ABG pO2 Sodium Chloride Carbon Dioxide BUN Creatinine Glucose POC Glucose 224 H 245 H 259 H Calcium AST ALT Alkaline Phosphatase Total Creatine Kinase CK-MB (CK-2) Total Protein Albumin 08/12/16 08/13/16 08/13/16 21:56 04:00 04:02 WBC RBC Hgb Hct MCV MCH MCHC RDW Plt Count Lymph % (Auto) Story % (Auto) Lymph # Story # Seg Neutrophils % Seg Neuts % (Manual) Lymphocytes % (Manual) Monocytes % (Manual) Nucleated RBC % Seg Neutrophils # Man Lymphocytes # (Manual) PT INR APTT POC ABG pH POC ABG pCO2 POC ABG pO2 Sodium 136 L Chloride 97.2 L Carbon Dioxide BUN 26 H Creatinine 0.6 L Glucose 185 H POC Glucose 229 H 202 H Calcium 7.3 L AST ALT Alkaline Phosphatase Total Creatine Kinase CK-MB (CK-2) Total Protein Albumin 08/13/16 08/13/16 08/13/16 06:47 09:53 13:40 WBC RBC Hgb Hct MCV MCH MCHC RDW Plt Count Lymph % (Auto) Story % (Auto) Lymph # Story # Seg Neutrophils % Seg Neuts % (Manual) Lymphocytes % (Manual) Monocytes % (Manual) Nucleated RBC % Seg Neutrophils # Man Lymphocytes # (Manual) PT INR APTT POC ABG pH POC ABG pCO2 POC ABG pO2 Sodium Chloride Carbon Dioxide BUN Creatinine Glucose POC Glucose 191 H 221 H 225 H Calcium AST ALT Alkaline Phosphatase Total Creatine Kinase CK-MB (CK-2) Total Protein Albumin 08/13/16 08/13/16 08/13/16 17:07 21:09 Unknown WBC RBC 3.53 L Hgb 8.9 L Hct 28.4 L MCV 81 L MCH 25 L MCHC 31 L RDW 19.2 H Plt Count Lymph % (Auto) Story % (Auto) Lymph # Story # Seg Neutrophils % Seg Neuts % (Manual) Lymphocytes % (Manual) Monocytes % (Manual) Nucleated RBC % Seg Neutrophils # Man Lymphocytes # (Manual) PT INR APTT POC ABG pH POC ABG pCO2 POC ABG pO2 Sodium Chloride Carbon Dioxide BUN Creatinine Glucose POC Glucose 232 H 166 H Calcium AST ALT Alkaline Phosphatase Total Creatine Kinase CK-MB (CK-2) Total Protein Albumin 08/14/16 08/14/16 08/14/16 01:42 05:16 08:57 WBC RBC Hgb Hct MCV MCH MCHC RDW Plt Count Lymph % (Auto) Story % (Auto) Lymph # Story # Seg Neutrophils % Seg Neuts % (Manual) Lymphocytes % (Manual) Monocytes % (Manual) Nucleated RBC % Seg Neutrophils # Man Lymphocytes # (Manual) PT INR APTT POC ABG pH POC ABG pCO2 POC ABG pO2 Sodium Chloride Carbon Dioxide BUN Creatinine Glucose POC Glucose 172 H 182 H 233 H Calcium AST ALT Alkaline Phosphatase Total Creatine Kinase CK-MB (CK-2) Total Protein Albumin 08/14/16 08/14/16 08/14/16 11:30 14:09 17:48 WBC RBC Hgb Hct MCV MCH MCHC RDW Plt Count Lymph % (Auto) Story % (Auto) Lymph # Story # Seg Neutrophils % Seg Neuts % (Manual) Lymphocytes % (Manual) Monocytes % (Manual) Nucleated RBC % Seg Neutrophils # Man Lymphocytes # (Manual) PT INR APTT POC ABG pH POC ABG pCO2 POC ABG pO2 Sodium 135 L Chloride 97.0 L Carbon Dioxide BUN 31 H Creatinine 0.7 L Glucose 271 H POC Glucose 302 H 260 H Calcium 7.4 L AST 86 H ALT 79 H Alkaline Phosphatase 1015 H Total Creatine Kinase CK-MB (CK-2) Total Protein 6.1 L Albumin 2.1 L 08/14/16 08/15/16 08/15/16 22:26 01:58 04:55 WBC RBC Hgb 9.1 L Hct 28.8 L MCV 79 L MCH 25 L MCHC RDW 19.1 H Plt Count Lymph % (Auto) Story % (Auto) Lymph # Story # Seg Neutrophils % Seg Neuts % (Manual) Lymphocytes % (Manual) Monocytes % (Manual) Nucleated RBC % Seg Neutrophils # Man Lymphocytes # (Manual) PT INR APTT POC ABG pH POC ABG pCO2 POC ABG pO2 Sodium Chloride Carbon Dioxide BUN Creatinine Glucose POC Glucose 188 H 200 H Calcium AST ALT Alkaline Phosphatase Total Creatine Kinase CK-MB (CK-2) Total Protein Albumin 08/15/16 04:55 WBC RBC Hgb Hct MCV MCH MCHC RDW Plt Count Lymph % (Auto) Story % (Auto) Lymph # Story # Seg Neutrophils % Seg Neuts % (Manual) Lymphocytes % (Manual) Monocytes % (Manual) Nucleated RBC % Seg Neutrophils # Man Lymphocytes # (Manual) PT INR APTT POC ABG pH POC ABG pCO2 POC ABG pO2 Sodium 133 L Chloride 96.2 L Carbon Dioxide BUN 35 H Creatinine 0.6 L Glucose 168 H POC Glucose Calcium 7.6 L AST 87 H ALT 77 H Alkaline Phosphatase 1075 H Total Creatine Kinase CK-MB (CK-2) Total Protein 6.2 L Albumin 2.2 L
[2016-08-15] MEDS: PEPCID PO SCH ×2 (10:02→21:58)
[2016-08-15] MEDS: ASPIRIN PO SCH (10:02)
[2016-08-15] MEDS: LEVEMIR SUB-Q SCH (10:03)
--- NOTE | 2016-08-15 11:44 | Progress Note ---
Assessment and Plan Assessment and plan: Acute Respiratory failure - still intubated on vent, pulmonary following - Multiple failed weaning attempts -Continue daily PS pH rales and AC rest at night. - For Tracheostomy and PEG tube placement. 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 -Continue Accu-Cheks and sliding scale insulin. Hyperlipidemia - cont statin BPH - monitor urine output Sepsis with PNA -pt had elevated white count on admission, tachycardia and fever -tracheal aspirate grew Pseudomonas, resistant to zosyn -Completed Meropenem. ID Physician following Prognosis guarded History Interval history: Patient is 76 year-old man with a history of hypertension, diabetes, hyperlipidemia, BPH, was brought to the emergency room because son found him on the floor unresponsive. Patient was intubated in the emergency room. MRI of brain showed bilateral acute ischemic stroke. Tracheal aspirate growing Pseudomonas Aeruginosa and Escherichia Coli. Failing weaning trial from vent. Plan is for PEG and Trach this week. No new issues overnight. Hospitalist Physical - Constitutional Vitals: Temp Pulse Resp BP Pulse Ox 99.3 F 96 H 14 124/66 93 08/15/16 08:00 08/15/16 11:00 08/15/16 11:00 08/15/16 11:00 08/15/16 11:00 General appearance: Present: other (awake, intubated, FiO2 30%) - EENT Eyes: Present: PERRL, EOM intact ENT: hearing intact, clear oral mucosa, dentition normal - Neck Neck: Present: supple, normal ROM - Respiratory Respiratory effort: normal Respiratory: bilateral: CTA - Cardiovascular Rhythm: regular Heart Sounds: Present: S1 & S2. Absent: gallop, rub - Extremities Extremities: no ischemia, No edema, Full ROM - Abdominal General gastrointestinal: soft, non-tender, non-distended, normal bowel sounds - Integumentary Integumentary: Present: clear, warm, dry - Neurologic Neurologic: CNII-XII intact, moves all extremities Results - Labs CBC & Chem 7: 08/15/16 04:55 08/15/16 04:55 Labs: Laboratory Last Values WBC 10.5 K/mm3 (4.5-11.0) 08/15/16 04:55 RBC 3.65 M/mm3 (3.65-5.03) 08/15/16 04:55 Hgb 9.1 gm/dl (11.8-15.2) L 08/15/16 04:55 Hct 28.8 % (35.5-45.6) L 08/15/16 04:55 MCV 79 fl (84-94) L 08/15/16 04:55 MCH 25 pg (28-32) L 08/15/16 04:55 MCHC 32 % (32-34) 08/15/16 04:55 RDW 19.1 % (13.2-15.2) H 08/15/16 04:55 Plt Count 216 K/mm3 (140-440) 08/15/16 04:55 Lymph % (Auto) Miniature Set Constructor 08/08/16 07:40 [place] % (Auto) Miniature Set Constructor 08/08/16 07:40 Eos % (Auto) Miniature Set Constructor 08/08/16 07:40 Baso % (Auto) Miniature Set Constructor 08/08/16 07:40 Lymph # Miniature Set Constructor 08/08/16 07:40 [place] # Miniature Set Constructor 08/08/16 07:40 Eos # Miniature Set Constructor 08/08/16 07:40 Baso # Miniature Set Constructor 08/08/16 07:40 Add Manual Diff Complete 08/08/16 07:40 Total Counted 100 08/08/16 07:40 Seg Neutrophils % Miniature Set Constructor 08/08/16 07:40 Seg Neuts % (Manual) 68.0 % (40.0-70.0) 08/08/16 07:40 Band Neutrophils % 2.0 % 08/08/16 07:40 Lymphocytes % (Manual) 25.0 % (13.4-35.0) 08/08/16 07:40 Reactive Lymphs % (Man) 0 % 08/08/16 07:40 Monocytes % (Manual) 3.0 % (0.0-7.3) 08/08/16 07:40 Eosinophils % (Manual) 2.0 % (0.0-4.3) 08/08/16 07:40 Basophils % (Manual) 0 % (0.0-1.8) 08/08/16 07:40 Metamyelocytes % 0 % 08/08/16 07:40 Myelocytes % 0 % 08/08/16 07:40 Promyelocytes % 0 % 08/08/16 07:40 Blast Cells % 0 % 08/08/16 07:40 Nucleated RBC % 2.0 % (0.0-0.9) H 08/08/16 07:40 Seg Neutrophils # Miniature Set Constructor 08/08/16 07:40 Seg Neutrophils # Man 5.9 K/mm3 (1.8-7.7) 08/08/16 07:40 Band Neutrophils # 0.2 K/mm3 08/08/16 07:40 Lymphocytes # (Manual) 2.2 K/mm3 (1.2-5.4) 08/08/16 07:40 Abs React Lymphs (Man) 0.0 K/mm3 08/08/16 07:40 Monocytes # (Manual) 0.3 K/mm3 (0.0-0.8) 08/08/16 07:40 Eosinophils # (Manual) 0.2 K/mm3 (0.0-0.4) 08/08/16 07:40 Basophils # (Manual) 0.0 K/mm3 (0.0-0.1) 08/08/16 07:40 Metamyelocytes # 0.0 K/mm3 08/08/16 07:40 Myelocytes # 0.0 K/mm3 08/08/16 07:40 Promyelocytes # 0.0 K/mm3 08/08/16 07:40 Blast Cells # 0.0 K/mm3 08/08/16 07:40 WBC Morphology Not Reportable 08/08/16 07:40 Hypersegmented Neuts Not Reportable 08/08/16 07:40 Hyposegmented Neuts Not Reportable 08/08/16 07:40 Hypogranular Neuts Not Reportable 08/08/16 07:40 Smudge Cells Not Reportable 08/08/16 07:40 Toxic Granulation Not Reportable 08/08/16 07:40 Toxic Vacuolation Not Reportable 08/08/16 07:40 Dohle Bodies Not Reportable 08/08/16 07:40 Pelger-Huet Anomaly Not Reportable 08/08/16 07:40 Leta Rods Not Reportable 08/08/16 07:40 Platelet Estimate Consistent w auto 08/08/16 07:40 Clumped Platelets Not Reportable 08/08/16 07:40 Plt Clumps, EDTA Not Reportable 08/08/16 07:40 Large Platelets Not Reportable 08/08/16 07:40 Giant Platelets Not Reportable 08/08/16 07:40 Platelet Satelliting Not Reportable 08/08/16 07:40 Plt Morphology Comment Not Reportable 08/08/16 07:40 RBC Morphology Not Reportable 08/08/16 07:40 Dimorphic RBCs Not Reportable 08/08/16 07:40 Polychromasia Few 08/08/16 07:40 Hypochromasia Few 08/08/16 07:40 Poikilocytosis Not Reportable 08/08/16 07:40 Anisocytosis 1+ 08/08/16 07:40 Microcytosis Not Reportable 08/08/16 07:40 Macrocytosis Few 08/08/16 07:40 Spherocytes Not Reportable 08/08/16 07:40 Pappenheimer Bodies Not Reportable 08/08/16 07:40 Sickle Cells Not Reportable 08/08/16 07:40 Target Cells Few 08/08/16 07:40 Tear Drop Cells Few 08/08/16 07:40 Ovalocytes Not Reportable 08/08/16 07:40 Helmet Cells Not Reportable 08/08/16 07:40 [place] Bodies Not Reportable 08/08/16 07:40 [place] Rings Not Reportable 08/08/16 07:40 [place] Cells Not Reportable 08/08/16 07:40 Bite Cells Not Reportable 08/08/16 07:40 Crenated Cell Not Reportable 08/08/16 07:40 Elliptocytes Not Reportable 08/08/16 07:40 Acanthocytes (Spur) Not Reportable 08/08/16 07:40 Rouleaux Not Reportable 08/08/16 07:40 Hemoglobin C Crystals Not Reportable 08/08/16 07:40 Schistocytes Not Reportable 08/08/16 07:40 Malaria parasites Not Reportable 08/08/16 07:40 Reece Bodies Not Reportable 08/08/16 07:40 Hem Pathologist Commnt No 08/08/16 07:40 PT 17.2 Sec. (12.2-14.9) H 08/07/16 07:30 INR 1.41 (0.87-1.13) H 08/07/16 07:30 APTT 36.5 Sec. (24.2-36.6) 08/07/16 07:30 POC ABG pH 7.441 (7.35-7.45) 08/14/16 09:52 POC ABG pCO2 39.5 (35-45) 08/14/16 09:52 POC ABG pO2 85 (80-105) 08/14/16 09:52 POC ABG HCO3 26.9 08/14/16 09:52 POC ABG Total CO2 28 08/14/16 09:52 POC ABG O2 Sat 97 08/14/16 09:52 POC ABG Base Excess 3 08/14/16 09:52 VBG pH 7.447 (7.320-7.420) H 07/31/16 00:13 FiO2 30 % 08/14/16 09:52 Sodium 133 mmol/L (137-145) L 08/15/16 04:55 Potassium 4.4 mmol/L (3.6-5.0) 08/15/16 04:55 Chloride 96.2 mmol/L (98-107) L 08/15/16 04:55 Carbon Dioxide 26 mmol/L (22-30) 08/15/16 04:55 Anion Gap 15 mmol/L 08/15/16 04:55 BUN 35 mg/dL (9-20) H 08/15/16 04:55 Creatinine 0.6 mg/dL (0.8-1.5) L 08/15/16 04:55 Estimated GFR > 60 ml/min 08/15/16 04:55 BUN/Creatinine Ratio 58.33 % 08/15/16 04:55 Glucose 168 mg/dL (75-100) H 08/15/16 04:55 POC Glucose 253 (70-105) H 08/15/16 09:43 Lactic Acid 1.00 mmol/L (0.7-2.0) 07/31/16 00:13 Calcium 7.6 mg/dL (8.4-10.2) L 08/15/16 04:55 Total Bilirubin 0.20 mg/dL (0.1-1.2) 08/15/16 04:55 AST 87 units/L (5-40) H 08/15/16 04:55 ALT 77 units/L (7-56) H 08/15/16 04:55 Alkaline Phosphatase 1075 units/L (35-129) H 08/15/16 04:55 Ammonia 49.0 umol/L (25-60) 07/31/16 00:13 Total Creatine Kinase 865 units/L (55-170) H 07/31/16 08:39 CK-MB (CK-2) 5.9 ng/mL (0.0-4.0) H 07/31/16 08:39 CK-MB (CK-2) Rel Index 0.6 (0-4) 07/31/16 08:39 Troponin T 0.011 ng/mL (0.00-0.029) 07/31/16 08:39 Total Protein 6.2 g/dL (6.3-8.2) L 08/15/16 04:55 Albumin 2.2 g/dL (3.9-5) L 08/15/16 04:55 Albumin/Globulin Ratio 0.6 % 08/15/16 04:55 TSH 1.420 mlU/mL (0.270-4.200) 08/04/16 09:50 CSF Appearance Clear 08/04/16 11:54 CSF Color Colorless 08/04/16 11:54 CSF WBC 2 /mm3 (1-10) 08/04/16 11:54 CSF RBC 30 /mm3 (0-0) 08/04/16 11:54 CSF Seg Neutrophils 0 % (0-6) 08/04/16 11:54 CSF Lymphocytes % 66.7 % (40-80) 08/04/16 11:54 CSF Reactive Lymphs 0 % 08/04/16 11:54 CSF Monocytes % 33.3 % (15-45) 08/04/16 11:54 CSF Eosinophils % 0 % 08/04/16 11:54 CSF Basophils 0 % 08/04/16 11:54 CSF Pathologist Review C 08/04/16 11:54 CSF Glucose 90 mg/dL 08/04/16 11:54 CSF Total Protein 93 mg/dL 08/04/16 11:54 CSF VDRL Nonreactive (Nonreactive) 08/04/16 11:54 Salicylates < 0.3 mg/dL (2.8-20.0) L 07/31/16 00:02 Acetaminophen < 15.0 ug/mL (10.0-30.0) 07/31/16 00:02 Miscellaneous Test Flexitest 1 08/04/16 11:54 Blood Type O POSITIVE 07/30/16 23:40 MARK Antibody Screen Negative 07/30/16 23:40
--- NOTE | 2016-08-15 12:22 | XRay Report ---
Single view abdomen: History: NG tube placement. Findings: Tip of NG tube is noted in stomach just distal to the GE junction. No bowel distention. Stool in colon. Impression: Tip of NG tube in stomach just distal to GE junction.
--- NOTE | 2016-08-15 19:09 | XRay Report ---
FINAL REPORT EXAM: XR CHEST 1V AP HISTORY: ng tube placement TECHNIQUE: Single, portable chest x-ray. PRIORS: None. FINDINGS: ET tube tip projects approximately 4.5 cm above the eliceo. NG tube appears coiled over cervical spine and probable hypopharynx and should be repositioned. Left PICC line tip projects over SVC. Tortuous thoracic aorta. Cardiac and mediastinal silhouette within normal limits. Lungs show no focal consolidation or apparent pneumothorax. IMPRESSION: 1. ET and NG tube positions as reported. 2. No acute consolidation.
--- NOTE | 2016-08-15 19:14 | XRay Report ---
FINAL REPORT EXAM: XR ABDOMEN 1V AP HISTORY: new ng tube placement TECHNIQUE: Frontal chest x-ray. Supine and upright abdomen films. PRIORS: Portable chest x-ray of same date. FINDINGS: Chest: ET and NG tubes and left PICC line again noted, including NG tube coiled over probable hypopharynx. No evidence of acute cardiopulmonary disease. Abdomen: No significant bowel dilatation or abnormal air fluid levels. No apparent pneumoperitoneum. No abnormal calcifications. Osseous structures show heterogeneously increased density or sclerosis scattered in the axial skeleton, nonspecific. IMPRESSION: 1. NG tube coiled over hypopharynx and should be repositioned. 2. Nonobstructive bowel gas pattern. 3. Heterogeneous and increased mineralization or sclerosis scattered in axial skeleton may be due to technique or metabolic process versus neoplastic or metastatic disease. Clinical correlation and followup suggested.
--- NOTE | 2016-08-15 20:46 | XRay Report ---
FINAL REPORT EXAM: XR ABDOMEN 1V AP HISTORY: new dobhoff placement TECHNIQUE: KUB(s) view of upper abdomen. PRIORS: Earlier on same date. FINDINGS: Enteric tube extends below the diaphragm, with tip projected over left upper quadrant and probable stomach. Bowel gas pattern grossly unremarkable. No apparent pneumoperitoneum. Degenerative change in the lumbar spine. IMPRESSION: 1. Enteric tube position as reported. 2. Nonobstructive bowel gas pattern.
[2016-08-16 06:57] LABS: Hematocrit 30.8 % (35.5-45.6); Hemoglobin 9.6 gm/dl (11.8-15.2); Mean Corpuscular HGB Conc 31 % (32-34); Mean Corpuscular Volume 79 fl (84-94); Platelet Count 228 K/mm3 (140-440); Red Blood Count 3.88 M/mm3 (3.65-5.03); Red Cell Distribution Width 19.2 % (13.2-15.2); White Blood Count 11.2 K/mm3 (4.5-11.0)
[2016-08-16 06:58] LABS: Mean Corpuscular Hemoglobin 25 pg (28-32)
[2016-08-16 07:12] LABS: Anion Gap 15 mmol/L; Blood Urea Nitrogen 30 mg/dL (9-20); Calcium 7.5 mg/dL (8.4-10.2); Carbon Dioxide 27 mmol/L (22-30); Chloride 99.5 mmol/L (98-107); Glucose 136 mg/dL (75-100); Potassium 4.4 mmol/L (3.6-5.0); Sodium 137 mmol/L (137-145)
--- NOTE | 2016-08-16 08:32 | Progress Note ---
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 1. Trach and peg tomorrow 2. Continue Daily PSV trials and AC rest at night 3. Appreciate neuro help. Feel patient is better and they agree with trach and peg. 4. Blood sugars better with increased levemir. 5. Will continue to follow along with you CCT 31 minutes. Subjective Date of service: 08/16/16 Principal diagnosis: acute respiratory failure, encephalopathy Interval history: No acute events. Trach and Peg tomorrow. Objective Vital Signs - 12hr 08/15/16 08/15/16 08/15/16 20:55 21:01 22:00 Temperature Pulse Rate 86 88 87 Respiratory 14 15 Rate Blood Pressure 139/76 144/79 136/88 O2 Sat by Pulse 97 98 98 Oximetry 08/15/16 08/16/16 08/16/16 23:00 00:00 01:00 Temperature 99.9 F H Pulse Rate 88 96 H 92 H Respiratory 18 15 16 Rate Blood Pressure 140/66 148/72 138/68 O2 Sat by Pulse 98 100 99 Oximetry 08/16/16 08/16/16 08/16/16 01:05 02:00 03:00 Temperature Pulse Rate 92 H 92 H 89 Respiratory 15 16 Rate Blood Pressure 138/68 136/80 136/60 O2 Sat by Pulse 99 98 98 Oximetry 08/16/16 08/16/16 08/16/16 03:53 04:00 05:00 Temperature 99.8 F H Pulse Rate 88 93 H 93 H Respiratory 17 15 Rate Blood Pressure 136/60 140/66 131/60 O2 Sat by Pulse 95 97 98 Oximetry 08/16/16 08/16/16 06:00 08:17 Temperature Pulse Rate 88 90 Respiratory 16 Rate Blood Pressure 129/61 144/62 O2 Sat by Pulse 98 98 Oximetry Constitutional: no acute distress, other (intubated, ) Eyes: other (pupils are equal, very slowly reactive) ENT: other (orally intubated) Neck: supple, no JVD Ascultation: Bilateral: clear, diminished breath sounds Gastrointestinal: normoactive bowel sounds, soft, non-distended Integumentary: normal Extremities: no cyanosis, no edema Neurologic: other (no changes) CBC and BMP: 08/16/16 06:00 08/16/16 06:00 ABG, PT/INR, D-dimer: ABG POC ABG pH 7.441 (7.35-7.45) 08/14/16 09:52 POC ABG pCO2 39.5 (35-45) 08/14/16 09:52 POC ABG pO2 85 (80-105) 08/14/16 09:52 POC ABG HCO3 26.9 08/14/16 09:52 POC ABG Total CO2 28 08/14/16 09:52 POC ABG O2 Sat 97 08/14/16 09:52 PT/INR, D-dimer PT 17.2 Sec. (12.2-14.9) H 08/07/16 07:30 INR 1.41 (0.87-1.13) H 08/07/16 07:30 Abnormal lab findings: Abnormal Labs 07/31/16 07/31/16 07/31/16 08:39 10:07 12:07 WBC RBC Hgb Hct MCV MCH MCHC RDW Plt Count Lymph % (Auto) [place] % (Auto) Lymph # [place] # Seg Neutrophils % Seg Neuts % (Manual) Lymphocytes % (Manual) Monocytes % (Manual) Nucleated RBC % Seg Neutrophils # Man Lymphocytes # (Manual) PT INR APTT POC ABG pH POC ABG pCO2 POC ABG pO2 Sodium Chloride Carbon Dioxide BUN Creatinine Glucose POC Glucose 205 H 188 H Calcium AST ALT Alkaline Phosphatase Total Creatine Kinase 865 H CK-MB (CK-2) 5.9 H Total Protein Albumin 07/31/16 07/31/16 07/31/16 16:19 19:58 23:53 WBC RBC Hgb Hct MCV MCH MCHC RDW Plt Count Lymph % (Auto) [place] % (Auto) Lymph # [place] # Seg Neutrophils % Seg Neuts % (Manual) Lymphocytes % (Manual) Monocytes % (Manual) Nucleated RBC % Seg Neutrophils # Man Lymphocytes # (Manual) PT INR APTT POC ABG pH POC ABG pCO2 POC ABG pO2 Sodium Chloride Carbon Dioxide BUN Creatinine Glucose POC Glucose 195 H 147 H 160 H Calcium AST ALT Alkaline Phosphatase Total Creatine Kinase CK-MB (CK-2) Total Protein Albumin 08/01/16 08/01/16 08/01/16 04:18 04:42 07:45 WBC 14.8 H RBC Hgb 10.7 L Hct 34.9 L MCV 82 L MCH 25 L MCHC 31 L RDW 19.1 H Plt Count Lymph % (Auto) [place] % (Auto) Lymph # [place] # Seg Neutrophils % Seg Neuts % (Manual) 80.0 H Lymphocytes % (Manual) 12.0 L Monocytes % (Manual) Nucleated RBC % Seg Neutrophils # Man 11.8 H Lymphocytes # (Manual) PT INR APTT POC ABG pH POC ABG pCO2 33.4 L POC ABG pO2 66 L Sodium Chloride Carbon Dioxide BUN Creatinine Glucose POC Glucose 225 H Calcium AST ALT Alkaline Phosphatase Total Creatine Kinase CK-MB (CK-2) Total Protein Albumin 08/01/16 08/01/16 08/01/16 07:45 10:09 10:59 WBC RBC Hgb Hct MCV MCH MCHC RDW Plt Count Lymph % (Auto) [place] % (Auto) Lymph # [place] # Seg Neutrophils % Seg Neuts % (Manual) Lymphocytes % (Manual) Monocytes % (Manual) Nucleated RBC % Seg Neutrophils # Man Lymphocytes # (Manual) PT INR APTT POC ABG pH POC ABG pCO2 POC ABG pO2 Sodium Chloride Carbon Dioxide BUN 29 H Creatinine Glucose 233 H POC Glucose 266 H 318 H Calcium 7.6 L AST ALT Alkaline Phosphatase Total Creatine Kinase CK-MB (CK-2) Total Protein Albumin 08/01/16 08/01/16 08/01/16 14:24 17:56 21:21 WBC RBC Hgb Hct MCV MCH MCHC RDW Plt Count Lymph % (Auto) [place] % (Auto) Lymph # [place] # Seg Neutrophils % Seg Neuts % (Manual) Lymphocytes % (Manual) Monocytes % (Manual) Nucleated RBC % Seg Neutrophils # Man Lymphocytes # (Manual) PT INR APTT POC ABG pH POC ABG pCO2 POC ABG pO2 Sodium Chloride Carbon Dioxide BUN Creatinine Glucose POC Glucose 298 H 239 H 203 H Calcium AST ALT Alkaline Phosphatase Total Creatine Kinase CK-MB (CK-2) Total Protein Albumin 08/02/16 08/02/16 08/02/16 02:05 03:55 05:38 WBC RBC Hgb Hct MCV MCH MCHC RDW Plt Count Lymph % (Auto) [place] % (Auto) Lymph # [place] # Seg Neutrophils % Seg Neuts % (Manual) Lymphocytes % (Manual) Monocytes % (Manual) Nucleated RBC % Seg Neutrophils # Man Lymphocytes # (Manual) PT INR APTT POC ABG pH 7.460 H POC ABG pCO2 31.2 L POC ABG pO2 71 L Sodium Chloride Carbon Dioxide BUN Creatinine Glucose POC Glucose 248 H 253 H Calcium AST ALT Alkaline Phosphatase Total Creatine Kinase CK-MB (CK-2) Total Protein Albumin 08/02/16 08/02/16 08/02/16 09:11 09:44 09:44 WBC RBC 3.62 L Hgb 9.4 L Hct 29.1 L MCV 80 L MCH 26 L MCHC RDW 18.7 H Plt Count Lymph % (Auto) [place] % (Auto) 9.2 H Lymph # [place] # 1.0 H Seg Neutrophils % 72.0 H Seg Neuts % (Manual) Lymphocytes % (Manual) Monocytes % (Manual) Nucleated RBC % Seg Neutrophils # Man Lymphocytes # (Manual) PT INR APTT POC ABG pH POC ABG pCO2 POC ABG pO2 Sodium 135 L Chloride Carbon Dioxide 21 L BUN 42 H Creatinine Glucose 248 H POC Glucose 306 H Calcium 7.6 L AST ALT Alkaline Phosphatase Total Creatine Kinase CK-MB (CK-2) Total Protein Albumin 08/02/16 08/02/16 08/02/16 15:53 17:33 21:39 WBC RBC Hgb Hct MCV MCH MCHC RDW Plt Count Lymph % (Auto) [place] % (Auto) Lymph # [place] # Seg Neutrophils % Seg Neuts % (Manual) Lymphocytes % (Manual) Monocytes % (Manual) Nucleated RBC % Seg Neutrophils # Man Lymphocytes # (Manual) PT INR APTT POC ABG pH POC ABG pCO2 POC ABG pO2 Sodium Chloride Carbon Dioxide BUN Creatinine Glucose POC Glucose 205 H 250 H 282 H Calcium AST ALT Alkaline Phosphatase Total Creatine Kinase CK-MB (CK-2) Total Protein Albumin 08/03/16 08/03/16 08/03/16 02:28 05:47 07:05 WBC RBC 3.32 L Hgb 8.4 L Hct 26.5 L MCV 80 L MCH 25 L MCHC RDW 18.7 H Plt Count 112 L Lymph % (Auto) 12.5 L [place] % (Auto) 10.2 H Lymph # 1.0 L [place] # Seg Neutrophils % 75.9 H Seg Neuts % (Manual) Lymphocytes % (Manual) Monocytes % (Manual) Nucleated RBC % Seg Neutrophils # Man Lymphocytes # (Manual) PT INR APTT POC ABG pH POC ABG pCO2 POC ABG pO2 Sodium Chloride Carbon Dioxide BUN Creatinine Glucose POC Glucose 317 H 253 H Calcium AST ALT Alkaline Phosphatase Total Creatine Kinase CK-MB (CK-2) Total Protein Albumin 08/03/16 08/03/16 08/03/16 07:05 09:50 14:07 WBC RBC Hgb Hct MCV MCH MCHC RDW Plt Count Lymph % (Auto) [place] % (Auto) Lymph # [place] # Seg Neutrophils % Seg Neuts % (Manual) Lymphocytes % (Manual) Monocytes % (Manual) Nucleated RBC % Seg Neutrophils # Man Lymphocytes # (Manual) PT INR APTT POC ABG pH POC ABG pCO2 POC ABG pO2 Sodium 132 L Chloride Carbon Dioxide 20 L BUN 42 H Creatinine Glucose 243 H POC Glucose 332 H 345 H Calcium 6.8 L AST ALT Alkaline Phosphatase Total Creatine Kinase CK-MB (CK-2) Total Protein Albumin 08/03/16 08/03/16 08/04/16 17:38 21:36 02:18 WBC RBC Hgb Hct MCV MCH MCHC RDW Plt Count Lymph % (Auto) [place] % (Auto) Lymph # [place] # Seg Neutrophils % Seg Neuts % (Manual) Lymphocytes % (Manual) Monocytes % (Manual) Nucleated RBC % Seg Neutrophils # Man Lymphocytes # (Manual) PT INR APTT POC ABG pH POC ABG pCO2 POC ABG pO2 Sodium Chloride Carbon Dioxide BUN Creatinine Glucose POC Glucose 262 H 260 H 256 H Calcium AST ALT Alkaline Phosphatase Total Creatine Kinase CK-MB (CK-2) Total Protein Albumin 08/04/16 08/04/16 08/04/16 05:41 06:00 10:20 WBC RBC Hgb Hct MCV MCH MCHC RDW Plt Count Lymph % (Auto) [place] % (Auto) Lymph # [place] # Seg Neutrophils % Seg Neuts % (Manual) Lymphocytes % (Manual) Monocytes % (Manual) Nucleated RBC % Seg Neutrophils # Man Lymphocytes # (Manual) PT INR APTT POC ABG pH POC ABG pCO2 POC ABG pO2 Sodium Chloride Carbon Dioxide BUN 34 H Creatinine 0.7 L Glucose 237 H POC Glucose 265 H 266 H Calcium 7.9 L D AST ALT Alkaline Phosphatase Total Creatine Kinase CK-MB (CK-2) Total Protein Albumin 08/04/16 08/04/16 08/04/16 14:20 17:31 21:52 WBC RBC Hgb Hct MCV MCH MCHC RDW Plt Count Lymph % (Auto) [place] % (Auto) Lymph # [place] # Seg Neutrophils % Seg Neuts % (Manual) Lymphocytes % (Manual) Monocytes % (Manual) Nucleated RBC % Seg Neutrophils # Man Lymphocytes # (Manual) PT INR APTT POC ABG pH POC ABG pCO2 POC ABG pO2 Sodium Chloride Carbon Dioxide BUN Creatinine Glucose POC Glucose 302 H 337 H 340 H Calcium AST ALT Alkaline Phosphatase Total Creatine Kinase CK-MB (CK-2) Total Protein Albumin 08/05/16 08/05/16 08/05/16 01:43 05:00 05:00 WBC RBC Hgb 9.5 L Hct 30.1 L MCV 81 L MCH 26 L MCHC RDW 19.1 H Plt Count 112 L Lymph % (Auto) [place] % (Auto) Lymph # [place] # Seg Neutrophils % Seg Neuts % (Manual) Lymphocytes % (Manual) Monocytes % (Manual) Nucleated RBC % Seg Neutrophils # Man Lymphocytes # (Manual) PT INR APTT POC ABG pH POC ABG pCO2 POC ABG pO2 Sodium Chloride Carbon Dioxide BUN 27 H Creatinine 0.7 L Glucose 212 H POC Glucose 247 H Calcium 8.3 L AST 92 H ALT 81 H Alkaline Phosphatase 629 H Total Creatine Kinase CK-MB (CK-2) Total Protein 5.9 L Albumin 2.2 L 08/05/16 08/05/16 08/05/16 05:14 05:19 10:12 WBC RBC Hgb Hct MCV MCH MCHC RDW Plt Count Lymph % (Auto) [place] % (Auto) Lymph # [place] # Seg Neutrophils % Seg Neuts % (Manual) Lymphocytes % (Manual) Monocytes % (Manual) Nucleated RBC % Seg Neutrophils # Man Lymphocytes # (Manual) PT INR APTT POC ABG pH 7.469 H POC ABG pCO2 POC ABG pO2 109 H Sodium Chloride Carbon Dioxide BUN Creatinine Glucose POC Glucose 208 H 206 H Calcium AST ALT Alkaline Phosphatase Total Creatine Kinase CK-MB (CK-2) Total Protein Albumin 08/05/16 08/05/16 08/05/16 13:54 18:31 22:06 WBC RBC Hgb Hct MCV MCH MCHC RDW Plt Count Lymph % (Auto) [place] % (Auto) Lymph # [place] # Seg Neutrophils % Seg Neuts % (Manual) Lymphocytes % (Manual) Monocytes % (Manual) Nucleated RBC % Seg Neutrophils # Man Lymphocytes # (Manual) PT INR APTT POC ABG pH POC ABG pCO2 POC ABG pO2 Sodium Chloride Carbon Dioxide BUN Creatinine Glucose POC Glucose 226 H 229 H 245 H Calcium AST ALT Alkaline Phosphatase Total Creatine Kinase CK-MB (CK-2) Total Protein Albumin 08/06/16 08/06/16 08/06/16 02:03 05:31 05:42 WBC RBC Hgb Hct MCV MCH MCHC RDW Plt Count Lymph % (Auto) [place] % (Auto) Lymph # [place] # Seg Neutrophils % Seg Neuts % (Manual) Lymphocytes % (Manual) Monocytes % (Manual) Nucleated RBC % Seg Neutrophils # Man Lymphocytes # (Manual) PT INR APTT POC ABG pH POC ABG pCO2 POC ABG pO2 62 L Sodium Chloride Carbon Dioxide BUN Creatinine Glucose POC Glucose 237 H 205 H Calcium AST ALT Alkaline Phosphatase Total Creatine Kinase CK-MB (CK-2) Total Protein Albumin 08/06/16 08/06/16 08/06/16 09:36 11:30 14:23 WBC RBC Hgb Hct MCV MCH MCHC RDW Plt Count Lymph % (Auto) [place] % (Auto) Lymph # [place] # Seg Neutrophils % Seg Neuts % (Manual) Lymphocytes % (Manual) Monocytes % (Manual) Nucleated RBC % Seg Neutrophils # Man Lymphocytes # (Manual) PT 18.9 H INR 1.59 H APTT 39.7 H POC ABG pH POC ABG pCO2 POC ABG pO2 Sodium Chloride Carbon Dioxide BUN Creatinine Glucose POC Glucose 279 H 264 H Calcium AST ALT Alkaline Phosphatase Total Creatine Kinase CK-MB (CK-2) Total Protein Albumin 08/06/16 08/07/16 08/07/16 18:07 03:01 05:18 WBC RBC Hgb Hct MCV MCH MCHC RDW Plt Count Lymph % (Auto) [place] % (Auto) Lymph # [place] # Seg Neutrophils % Seg Neuts % (Manual) Lymphocytes % (Manual) Monocytes % (Manual) Nucleated RBC % Seg Neutrophils # Man Lymphocytes # (Manual) PT INR APTT POC ABG pH 7.459 H POC ABG pCO2 POC ABG pO2 Sodium Chloride Carbon Dioxide BUN Creatinine Glucose POC Glucose 176 H 172 H Calcium AST ALT Alkaline Phosphatase Total Creatine Kinase CK-MB (CK-2) Total Protein Albumin 08/07/16 08/07/16 08/07/16 05:32 07:30 07:30 WBC RBC 3.39 L Hgb 8.6 L Hct 27.2 L MCV 80 L MCH 25 L MCHC RDW 19.1 H Plt Count 136 L Lymph % (Auto) [place] % (Auto) Lymph # [place] # Seg Neutrophils % Seg Neuts % (Manual) 84.0 H Lymphocytes % (Manual) 4.0 L Monocytes % (Manual) 8.0 H Nucleated RBC % Seg Neutrophils # Man 8.2 H Lymphocytes # (Manual) 0.4 L PT 17.2 H INR 1.41 H APTT POC ABG pH POC ABG pCO2 POC ABG pO2 Sodium Chloride Carbon Dioxide BUN Creatinine Glucose POC Glucose 204 H Calcium AST ALT Alkaline Phosphatase Total Creatine Kinase CK-MB (CK-2) Total Protein Albumin 08/07/16 08/07/16 08/07/16 07:30 10:03 14:35 WBC RBC Hgb Hct MCV MCH MCHC RDW Plt Count Lymph % (Auto) [place] % (Auto) Lymph # [place] # Seg Neutrophils % Seg Neuts % (Manual) Lymphocytes % (Manual) Monocytes % (Manual) Nucleated RBC % Seg Neutrophils # Man Lymphocytes # (Manual) PT INR APTT POC ABG pH POC ABG pCO2 POC ABG pO2 Sodium Chloride Carbon Dioxide BUN 27 H Creatinine 0.7 L Glucose 201 H POC Glucose 233 H 255 H Calcium 7.9 L AST 73 H ALT 74 H Alkaline Phosphatase 595 H Total Creatine Kinase CK-MB (CK-2) Total Protein 5.1 L Albumin 1.8 L 08/07/16 08/07/16 08/08/16 16:09 22:01 01:27 WBC RBC Hgb Hct MCV MCH MCHC RDW Plt Count Lymph % (Auto) [place] % (Auto) Lymph # [place] # Seg Neutrophils % Seg Neuts % (Manual) Lymphocytes % (Manual) Monocytes % (Manual) Nucleated RBC % Seg Neutrophils # Man Lymphocytes # (Manual) PT INR APTT POC ABG pH POC ABG pCO2 POC ABG pO2 Sodium Chloride Carbon Dioxide BUN Creatinine Glucose POC Glucose 259 H 255 H 252 H Calcium AST ALT Alkaline Phosphatase Total Creatine Kinase CK-MB (CK-2) Total Protein Albumin 08/08/16 08/08/16 08/08/16 05:13 06:23 07:40 WBC RBC 3.36 L Hgb 8.5 L Hct 27.1 L MCV 81 L MCH 25 L MCHC 31 L RDW 18.8 H Plt Count 129 L Lymph % (Auto) [place] % (Auto) Lymph # [place] # Seg Neutrophils % Seg Neuts % (Manual) Lymphocytes % (Manual) Monocytes % (Manual) Nucleated RBC % 2.0 H Seg Neutrophils # Man Lymphocytes # (Manual) PT INR APTT POC ABG pH 7.460 H POC ABG pCO2 POC ABG pO2 74 L Sodium Chloride Carbon Dioxide BUN Creatinine Glucose POC Glucose 264 H Calcium AST ALT Alkaline Phosphatase Total Creatine Kinase CK-MB (CK-2) Total Protein Albumin 08/08/16 08/08/16 08/08/16 07:40 10:01 15:00 WBC RBC Hgb Hct MCV MCH MCHC RDW Plt Count Lymph % (Auto) [place] % (Auto) Lymph # [place] # Seg Neutrophils % Seg Neuts % (Manual) Lymphocytes % (Manual) Monocytes % (Manual) Nucleated RBC % Seg Neutrophils # Man Lymphocytes # (Manual) PT INR APTT POC ABG pH POC ABG pCO2 POC ABG pO2 Sodium Chloride Carbon Dioxide BUN 26 H Creatinine 0.7 L Glucose 233 H POC Glucose 271 H 275 H Calcium 7.6 L AST 77 H ALT 71 H Alkaline Phosphatase 658 H Total Creatine Kinase CK-MB (CK-2) Total Protein 5.0 L Albumin 1.6 L 08/08/16 08/08/16 08/08/16 17:28 21:32 23:53 WBC RBC Hgb Hct MCV MCH MCHC RDW Plt Count Lymph % (Auto) [place] % (Auto) Lymph # [place] # Seg Neutrophils % Seg Neuts % (Manual) Lymphocytes % (Manual) Monocytes % (Manual) Nucleated RBC % Seg Neutrophils # Man Lymphocytes # (Manual) PT INR APTT POC ABG pH POC ABG pCO2 POC ABG pO2 Sodium Chloride Carbon Dioxide BUN Creatinine Glucose POC Glucose 275 H 252 H 246 H Calcium AST ALT Alkaline Phosphatase Total Creatine Kinase CK-MB (CK-2) Total Protein Albumin 08/09/16 08/09/16 08/09/16 03:32 05:00 05:00 WBC RBC 3.34 L Hgb 8.3 L Hct 26.7 L MCV 80 L MCH 25 L MCHC 31 L RDW 18.5 H Plt Count Lymph % (Auto) [place] % (Auto) Lymph # [place] # Seg Neutrophils % Seg Neuts % (Manual) Lymphocytes % (Manual) Monocytes % (Manual) Nucleated RBC % Seg Neutrophils # Man Lymphocytes # (Manual) PT INR APTT POC ABG pH POC ABG pCO2 POC ABG pO2 Sodium Chloride Carbon Dioxide BUN 25 H Creatinine 0.5 L Glucose 230 H POC Glucose 260 H Calcium 7.6 L AST ALT Alkaline Phosphatase Total Creatine Kinase CK-MB (CK-2) Total Protein Albumin 08/09/16 08/09/16 08/09/16 06:00 10:07 14:07 WBC RBC Hgb Hct MCV MCH MCHC RDW Plt Count Lymph % (Auto) [place] % (Auto) Lymph # [place] # Seg Neutrophils % Seg Neuts % (Manual) Lymphocytes % (Manual) Monocytes % (Manual) Nucleated RBC % Seg Neutrophils # Man Lymphocytes # (Manual) PT INR APTT POC ABG pH 7.493 H POC ABG pCO2 POC ABG pO2 Sodium Chloride Carbon Dioxide BUN Creatinine Glucose POC Glucose 216 H 220 H Calcium AST ALT Alkaline Phosphatase Total Creatine Kinase CK-MB (CK-2) Total Protein Albumin 08/09/16 08/09/16 08/10/16 16:55 21:07 02:09 WBC RBC Hgb Hct MCV MCH MCHC RDW Plt Count Lymph % (Auto) [place] % (Auto) Lymph # [place] # Seg Neutrophils % Seg Neuts % (Manual) Lymphocytes % (Manual) Monocytes % (Manual) Nucleated RBC % Seg Neutrophils # Man Lymphocytes # (Manual) PT INR APTT POC ABG pH POC ABG pCO2 POC ABG pO2 Sodium Chloride Carbon Dioxide BUN Creatinine Glucose POC Glucose 242 H 235 H 228 H Calcium AST ALT Alkaline Phosphatase Total Creatine Kinase CK-MB (CK-2) Total Protein Albumin 08/10/16 08/10/16 08/10/16 05:31 09:06 13:45 WBC RBC Hgb Hct MCV MCH MCHC RDW Plt Count Lymph % (Auto) [place] % (Auto) Lymph # [place] # Seg Neutrophils % Seg Neuts % (Manual) Lymphocytes % (Manual) Monocytes % (Manual) Nucleated RBC % Seg Neutrophils # Man Lymphocytes # (Manual) PT INR APTT POC ABG pH POC ABG pCO2 POC ABG pO2 Sodium Chloride Carbon Dioxide BUN Creatinine Glucose POC Glucose 201 H 229 H 274 H Calcium AST ALT Alkaline Phosphatase Total Creatine Kinase CK-MB (CK-2) Total Protein Albumin 08/10/16 08/10/16 08/10/16 17:53 21:43 Unknown WBC RBC 3.42 L Hgb 8.6 L Hct 27.5 L MCV 80 L MCH 25 L MCHC RDW 19.1 H Plt Count Lymph % (Auto) [place] % (Auto) Lymph # [place] # Seg Neutrophils % Seg Neuts % (Manual) Lymphocytes % (Manual) Monocytes % (Manual) Nucleated RBC % Seg Neutrophils # Man Lymphocytes # (Manual) PT INR APTT POC ABG pH POC ABG pCO2 POC ABG pO2 Sodium Chloride Carbon Dioxide BUN Creatinine Glucose POC Glucose 284 H 328 H Calcium AST ALT Alkaline Phosphatase Total Creatine Kinase CK-MB (CK-2) Total Protein Albumin 08/10/16 08/11/16 08/11/16 Unknown 01:37 05:39 WBC RBC Hgb Hct MCV MCH MCHC RDW Plt Count Lymph % (Auto) [place] % (Auto) Lymph # [place] # Seg Neutrophils % Seg Neuts % (Manual) Lymphocytes % (Manual) Monocytes % (Manual) Nucleated RBC % Seg Neutrophils # Man Lymphocytes # (Manual) PT INR APTT POC ABG pH POC ABG pCO2 POC ABG pO2 Sodium Chloride Carbon Dioxide BUN 27 H Creatinine 0.6 L Glucose 211 H POC Glucose 340 H 323 H Calcium 7.8 L AST ALT Alkaline Phosphatase Total Creatine Kinase CK-MB (CK-2) Total Protein Albumin 08/11/16 08/11/16 08/11/16 09:58 15:22 17:41 WBC RBC Hgb Hct MCV MCH MCHC RDW Plt Count Lymph % (Auto) [place] % (Auto) Lymph # [place] # Seg Neutrophils % Seg Neuts % (Manual) Lymphocytes % (Manual) Monocytes % (Manual) Nucleated RBC % Seg Neutrophils # Man Lymphocytes # (Manual) PT INR APTT POC ABG pH POC ABG pCO2 POC ABG pO2 Sodium Chloride Carbon Dioxide BUN Creatinine Glucose POC Glucose 295 H 210 H 164 H Calcium AST ALT Alkaline Phosphatase Total Creatine Kinase CK-MB (CK-2) Total Protein Albumin 08/11/16 08/12/16 08/12/16 21:53 01:56 05:15 WBC RBC Hgb Hct MCV MCH MCHC RDW Plt Count Lymph % (Auto) [place] % (Auto) Lymph # [place] # Seg Neutrophils % Seg Neuts % (Manual) Lymphocytes % (Manual) Monocytes % (Manual) Nucleated RBC % Seg Neutrophils # Man Lymphocytes # (Manual) PT INR APTT POC ABG pH POC ABG pCO2 POC ABG pO2 Sodium Chloride Carbon Dioxide BUN Creatinine Glucose POC Glucose 171 H 205 H 156 H Calcium AST ALT Alkaline Phosphatase Total Creatine Kinase CK-MB (CK-2) Total Protein Albumin 08/12/16 08/12/16 08/12/16 10:10 14:33 17:53 WBC RBC Hgb Hct MCV MCH MCHC RDW Plt Count Lymph % (Auto) [place] % (Auto) Lymph # [place] # Seg Neutrophils % Seg Neuts % (Manual) Lymphocytes % (Manual) Monocytes % (Manual) Nucleated RBC % Seg Neutrophils # Man Lymphocytes # (Manual) PT INR APTT POC ABG pH POC ABG pCO2 POC ABG pO2 Sodium Chloride Carbon Dioxide BUN Creatinine Glucose POC Glucose 224 H 245 H 259 H Calcium AST ALT Alkaline Phosphatase Total Creatine Kinase CK-MB (CK-2) Total Protein Albumin 08/12/16 08/13/16 08/13/16 21:56 04:00 04:02 WBC RBC Hgb Hct MCV MCH MCHC RDW Plt Count Lymph % (Auto) [place] % (Auto) Lymph # [place] # Seg Neutrophils % Seg Neuts % (Manual) Lymphocytes % (Manual) Monocytes % (Manual) Nucleated RBC % Seg Neutrophils # Man Lymphocytes # (Manual) PT INR APTT POC ABG pH POC ABG pCO2 POC ABG pO2 Sodium 136 L Chloride 97.2 L Carbon Dioxide BUN 26 H Creatinine 0.6 L Glucose 185 H POC Glucose 229 H 202 H Calcium 7.3 L AST ALT Alkaline Phosphatase Total Creatine Kinase CK-MB (CK-2) Total Protein Albumin 08/13/16 08/13/16 08/13/16 06:47 09:53 13:40 WBC RBC Hgb Hct MCV MCH MCHC RDW Plt Count Lymph % (Auto) [place] % (Auto) Lymph # [place] # Seg Neutrophils % Seg Neuts % (Manual) Lymphocytes % (Manual) Monocytes % (Manual) Nucleated RBC % Seg Neutrophils # Man Lymphocytes # (Manual) PT INR APTT POC ABG pH POC ABG pCO2 POC ABG pO2 Sodium Chloride Carbon Dioxide BUN Creatinine Glucose POC Glucose 191 H 221 H 225 H Calcium AST ALT Alkaline Phosphatase Total Creatine Kinase CK-MB (CK-2) Total Protein Albumin 08/13/16 08/13/16 08/13/16 17:07 21:09 Unknown WBC RBC 3.53 L Hgb 8.9 L Hct 28.4 L MCV 81 L MCH 25 L MCHC 31 L RDW 19.2 H Plt Count Lymph % (Auto) [place] % (Auto) Lymph # [place] # Seg Neutrophils % Seg Neuts % (Manual) Lymphocytes % (Manual) Monocytes % (Manual) Nucleated RBC % Seg Neutrophils # Man Lymphocytes # (Manual) PT INR APTT POC ABG pH POC ABG pCO2 POC ABG pO2 Sodium Chloride Carbon Dioxide BUN Creatinine Glucose POC Glucose 232 H 166 H Calcium AST ALT Alkaline Phosphatase Total Creatine Kinase CK-MB (CK-2) Total Protein Albumin 08/14/16 08/14/16 08/14/16 01:42 05:16 08:57 WBC RBC Hgb Hct MCV MCH MCHC RDW Plt Count Lymph % (Auto) [place] % (Auto) Lymph # [place] # Seg Neutrophils % Seg Neuts % (Manual) Lymphocytes % (Manual) Monocytes % (Manual) Nucleated RBC % Seg Neutrophils # Man Lymphocytes # (Manual) PT INR APTT POC ABG pH POC ABG pCO2 POC ABG pO2 Sodium Chloride Carbon Dioxide BUN Creatinine Glucose POC Glucose 172 H 182 H 233 H Calcium AST ALT Alkaline Phosphatase Total Creatine Kinase CK-MB (CK-2) Total Protein Albumin 08/14/16 08/14/16 08/14/16 11:30 14:09 17:48 WBC RBC Hgb Hct MCV MCH MCHC RDW Plt Count Lymph % (Auto) [place] % (Auto) Lymph # [place] # Seg Neutrophils % Seg Neuts % (Manual) Lymphocytes % (Manual) Monocytes % (Manual) Nucleated RBC % Seg Neutrophils # Man Lymphocytes # (Manual) PT INR APTT POC ABG pH POC ABG pCO2 POC ABG pO2 Sodium 135 L Chloride 97.0 L Carbon Dioxide BUN 31 H Creatinine 0.7 L Glucose 271 H POC Glucose 302 H 260 H Calcium 7.4 L AST 86 H ALT 79 H Alkaline Phosphatase 1015 H Total Creatine Kinase CK-MB (CK-2) Total Protein 6.1 L Albumin 2.1 L 08/14/16 08/15/16 08/15/16 22:26 01:58 04:55 WBC RBC Hgb 9.1 L Hct 28.8 L MCV 79 L MCH 25 L MCHC RDW 19.1 H Plt Count Lymph % (Auto) [place] % (Auto) Lymph # [place] # Seg Neutrophils % Seg Neuts % (Manual) Lymphocytes % (Manual) Monocytes % (Manual) Nucleated RBC % Seg Neutrophils # Man Lymphocytes # (Manual) PT INR APTT POC ABG pH POC ABG pCO2 POC ABG pO2 Sodium Chloride Carbon Dioxide BUN Creatinine Glucose POC Glucose 188 H 200 H Calcium AST ALT Alkaline Phosphatase Total Creatine Kinase CK-MB (CK-2) Total Protein Albumin 08/15/16 08/15/16 08/15/16 04:55 09:43 13:06 WBC RBC Hgb Hct MCV MCH MCHC RDW Plt Count Lymph % (Auto) [place] % (Auto) Lymph # [place] # Seg Neutrophils % Seg Neuts % (Manual) Lymphocytes % (Manual) Monocytes % (Manual) Nucleated RBC % Seg Neutrophils # Man Lymphocytes # (Manual) PT INR APTT POC ABG pH POC ABG pCO2 POC ABG pO2 Sodium 133 L Chloride 96.2 L Carbon Dioxide BUN 35 H Creatinine 0.6 L Glucose 168 H POC Glucose 253 H 196 H Calcium 7.6 L AST 87 H ALT 77 H Alkaline Phosphatase 1075 H Total Creatine Kinase CK-MB (CK-2) Total Protein 6.2 L Albumin 2.2 L 08/15/16 08/15/16 08/16/16 17:13 21:27 02:00 WBC RBC Hgb Hct MCV MCH MCHC RDW Plt Count Lymph % (Auto) [place] % (Auto) Lymph # [place] # Seg Neutrophils % Seg Neuts % (Manual) Lymphocytes % (Manual) Monocytes % (Manual) Nucleated RBC % Seg Neutrophils # Man Lymphocytes # (Manual) PT INR APTT POC ABG pH POC ABG pCO2 POC ABG pO2 Sodium Chloride Carbon Dioxide BUN Creatinine Glucose POC Glucose 152 H 119 H 171 H Calcium AST ALT Alkaline Phosphatase Total Creatine Kinase CK-MB (CK-2) Total Protein Albumin 08/16/16 08/16/16 08/16/16 05:29 06:00 06:00 WBC 11.2 H RBC Hgb 9.6 L Hct 30.8 L MCV 79 L MCH 25 L MCHC 31 L RDW 19.2 H Plt Count Lymph % (Auto) [place] % (Auto) Lymph # [place] # Seg Neutrophils % Seg Neuts % (Manual) Lymphocytes % (Manual) Monocytes % (Manual) Nucleated RBC % Seg Neutrophils # Man Lymphocytes # (Manual) PT INR APTT POC ABG pH POC ABG pCO2 POC ABG pO2 Sodium Chloride Carbon Dioxide BUN 30 H Creatinine 0.6 L Glucose 136 H POC Glucose 164 H Calcium 7.5 L AST ALT Alkaline Phosphatase Total Creatine Kinase CK-MB (CK-2) Total Protein Albumin
[2016-08-16 09:01] LABS: Basophils % (Manual) 0 % (0.0-1.8); Blastocytes % (Manual) 0 %; Eosinophils % (Manual) 0 % (0.0-4.3); Hypochromasia 1+; Ovalocytes Rare; Tear Drop Cells Rare
[2016-08-16 09:02] LABS: Diff Status Complete; Platelet Estimate Consistent w Auto; Poikilocytosis 1+
[2016-08-16] MEDS: ASPIRIN PO SCH (09:35)
[2016-08-16] MEDS: PEPCID PO SCH ×2 (09:36→21:34)
[2016-08-16] MEDS: LEVEMIR SUB-Q SCH (09:36)
--- NOTE | 2016-08-16 13:17 | Progress Note ---
Assessment and Plan Assessment and plan: Acute Respiratory failure - still intubated on vent, pulmonary following - Multiple failed weaning attempts -Continue daily PS pH rales and AC rest at night. - For Tracheostomy and PEG tube placement. 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 -Continue Accu-Cheks and sliding scale insulin. Hyperlipidemia - cont statin BPH - monitor urine output Sepsis with PNA -pt had elevated white count on admission, tachycardia and fever -tracheal aspirate grew Pseudomonas, resistant to zosyn -Completed Meropenem. ID Physician following Prognosis guarded History Interval history: Patient is 76 year-old man with a history of hypertension, diabetes, hyperlipidemia, BPH, was brought to the emergency room because son found him on the floor unresponsive. Patient was intubated in the emergency room. MRI of brain showed bilateral acute ischemic stroke. Tracheal aspirate growing Pseudomonas Aeruginosa and Escherichia Coli. Failing weaning trial from vent. Plan is for PEG and Trach this week. No new issues overnight. Hospitalist Physical - Constitutional Vitals: Temp Pulse Resp BP Pulse Ox 99 F 95 H 18 121/60 98 08/16/16 12:00 08/16/16 12:55 08/16/16 11:00 08/16/16 12:55 08/16/16 12:55 General appearance: Present: other (intubated, FiO2 30%; opens eyes briefly to voice and tactile stimuli) - EENT Eyes: Present: PERRL, EOM intact ENT: hearing intact, clear oral mucosa, dentition normal - Neck Neck: Present: supple, normal ROM - Respiratory Respiratory effort: normal Respiratory: bilateral: diminished, rhonchi - Cardiovascular Rhythm: regular Heart Sounds: Present: S1 & S2. Absent: gallop, rub - Extremities Extremities: no ischemia, No edema, Full ROM - Abdominal General gastrointestinal: soft, non-tender, non-distended, normal bowel sounds - Integumentary Integumentary: Present: clear, warm, dry - Neurologic Neurologic: CNII-XII intact, moves all extremities Results - Labs CBC & Chem 7: 08/16/16 06:00 08/16/16 06:00 Labs: Laboratory Last Values WBC 11.2 K/mm3 (4.5-11.0) H 08/16/16 06:00 RBC 3.88 M/mm3 (3.65-5.03) 08/16/16 06:00 Hgb 9.6 gm/dl (11.8-15.2) L 08/16/16 06:00 Hct 30.8 % (35.5-45.6) L 08/16/16 06:00 MCV 79 fl (84-94) L 08/16/16 06:00 MCH 25 pg (28-32) L 08/16/16 06:00 MCHC 31 % (32-34) L 08/16/16 06:00 RDW 19.2 % (13.2-15.2) H 08/16/16 06:00 Plt Count 228 K/mm3 (140-440) 08/16/16 06:00 Lymph % (Auto) [employer] Professor 08/08/16 07:40 Real % (Auto) [employer] Professor 08/08/16 07:40 Eos % (Auto) [employer] Professor 08/08/16 07:40 Baso % (Auto) [employer] Professor 08/08/16 07:40 Lymph # [employer] Professor 08/08/16 07:40 Real # [employer] Professor 08/08/16 07:40 Eos # [employer] Professor 08/08/16 07:40 Baso # [employer] Professor 08/08/16 07:40 Add Manual Diff Complete 08/16/16 06:00 Total Counted 100 08/16/16 06:00 Seg Neutrophils % [employer] Professor 08/08/16 07:40 Seg Neuts % (Manual) 83.0 % (40.0-70.0) H 08/16/16 06:00 Band Neutrophils % 0 % 08/16/16 06:00 Lymphocytes % (Manual) 12.0 % (13.4-35.0) L 08/16/16 06:00 Reactive Lymphs % (Man) 0 % 08/16/16 06:00 Monocytes % (Manual) 5.0 % (0.0-7.3) 08/16/16 06:00 Eosinophils % (Manual) 0 % (0.0-4.3) 08/16/16 06:00 Basophils % (Manual) 0 % (0.0-1.8) 08/16/16 06:00 Metamyelocytes % 0 % 08/16/16 06:00 Myelocytes % 0 % 08/16/16 06:00 Promyelocytes % 0 % 08/16/16 06:00 Blast Cells % 0 % 08/16/16 06:00 Nucleated RBC % Not Reportable 08/16/16 06:00 Seg Neutrophils # [employer] Professor 08/08/16 07:40 Seg Neutrophils # Man 9.3 K/mm3 (1.8-7.7) H 08/16/16 06:00 Band Neutrophils # 0.0 K/mm3 08/16/16 06:00 Lymphocytes # (Manual) 1.3 K/mm3 (1.2-5.4) 08/16/16 06:00 Abs React Lymphs (Man) 0.0 K/mm3 08/16/16 06:00 Monocytes # (Manual) 0.6 K/mm3 (0.0-0.8) 08/16/16 06:00 Eosinophils # (Manual) 0.0 K/mm3 (0.0-0.4) 08/16/16 06:00 Basophils # (Manual) 0.0 K/mm3 (0.0-0.1) 08/16/16 06:00 Metamyelocytes # 0.0 K/mm3 08/16/16 06:00 Myelocytes # 0.0 K/mm3 08/16/16 06:00 Promyelocytes # 0.0 K/mm3 08/16/16 06:00 Blast Cells # 0.0 K/mm3 08/16/16 06:00 WBC Morphology Not Reportable 08/16/16 06:00 Hypersegmented Neuts Not Reportable 08/16/16 06:00 Hyposegmented Neuts Not Reportable 08/16/16 06:00 Hypogranular Neuts Not Reportable 08/16/16 06:00 Smudge Cells Not Reportable 08/16/16 06:00 Toxic Granulation Not Reportable 08/16/16 06:00 Toxic Vacuolation Not Reportable 08/16/16 06:00 Dohle Bodies Not Reportable 08/16/16 06:00 Pelger-Huet Anomaly Not Reportable 08/16/16 06:00 Leta Rods Not Reportable 08/16/16 06:00 Platelet Estimate Consistent w auto 08/16/16 06:00 Clumped Platelets Not Reportable 08/16/16 06:00 Plt Clumps, EDTA Not Reportable 08/16/16 06:00 Large Platelets Not Reportable 08/16/16 06:00 Giant Platelets Not Reportable 08/16/16 06:00 Platelet Satelliting Not Reportable 08/16/16 06:00 Plt Morphology Comment Not Reportable 08/16/16 06:00 RBC Morphology Not Reportable 08/16/16 06:00 Dimorphic RBCs Not Reportable 08/16/16 06:00 Polychromasia Not Reportable 08/16/16 06:00 Hypochromasia 1+ 08/16/16 06:00 Poikilocytosis 1+ 08/16/16 06:00 Anisocytosis Not Reportable 08/16/16 06:00 Microcytosis Not Reportable 08/16/16 06:00 Macrocytosis Not Reportable 08/16/16 06:00 Spherocytes Not Reportable 08/16/16 06:00 Pappenheimer Bodies Not Reportable 08/16/16 06:00 Sickle Cells Not Reportable 08/16/16 06:00 Target Cells Not Reportable 08/16/16 06:00 Tear Drop Cells Rare 08/16/16 06:00 Ovalocytes Rare 08/16/16 06:00 Helmet Cells Not Reportable 08/16/16 06:00 [place] Bodies Not Reportable 08/16/16 06:00 Eola Rings Not Reportable 08/16/16 06:00 [place] Cells Not Reportable 08/16/16 06:00 Bite Cells Not Reportable 08/16/16 06:00 Crenated Cell Not Reportable 08/16/16 06:00 Elliptocytes Not Reportable 08/16/16 06:00 Acanthocytes (Spur) Not Reportable 08/16/16 06:00 Rouleaux Not Reportable 08/16/16 06:00 Hemoglobin C Crystals Not Reportable 08/16/16 06:00 Schistocytes Not Reportable 08/16/16 06:00 Malaria parasites Not Reportable 08/16/16 06:00 Reece Bodies Not Reportable 08/16/16 06:00 Hem Pathologist Commnt No 08/16/16 06:00 PT 17.2 Sec. (12.2-14.9) H 08/07/16 07:30 INR 1.41 (0.87-1.13) H 08/07/16 07:30 APTT 36.5 Sec. (24.2-36.6) 08/07/16 07:30 POC ABG pH 7.441 (7.35-7.45) 08/14/16 09:52 POC ABG pCO2 39.5 (35-45) 08/14/16 09:52 POC ABG pO2 85 (80-105) 08/14/16 09:52 POC ABG HCO3 26.9 08/14/16 09:52 POC ABG Total CO2 28 08/14/16 09:52 POC ABG O2 Sat 97 08/14/16 09:52 POC ABG Base Excess 3 08/14/16 09:52 VBG pH 7.447 (7.320-7.420) H 07/31/16 00:13 FiO2 30 % 08/14/16 09:52 Sodium 137 mmol/L (137-145) 08/16/16 06:00 Potassium 4.4 mmol/L (3.6-5.0) 08/16/16 06:00 Chloride 99.5 mmol/L (98-107) 08/16/16 06:00 Carbon Dioxide 27 mmol/L (22-30) 08/16/16 06:00 Anion Gap 15 mmol/L 08/16/16 06:00 BUN 30 mg/dL (9-20) H 08/16/16 06:00 Creatinine 0.6 mg/dL (0.8-1.5) L 08/16/16 06:00 Estimated GFR > 60 ml/min 08/16/16 06:00 BUN/Creatinine Ratio 50.00 % 08/16/16 06:00 Glucose 136 mg/dL (75-100) H 08/16/16 06:00 POC Glucose 164 (70-105) H 08/16/16 05:29 Lactic Acid 1.00 mmol/L (0.7-2.0) 07/31/16 00:13 Calcium 7.5 mg/dL (8.4-10.2) L 08/16/16 06:00 Total Bilirubin 0.20 mg/dL (0.1-1.2) 08/15/16 04:55 AST 87 units/L (5-40) H 08/15/16 04:55 ALT 77 units/L (7-56) H 08/15/16 04:55 Alkaline Phosphatase 1075 units/L (35-129) H 08/15/16 04:55 Ammonia 49.0 umol/L (25-60) 07/31/16 00:13 Total Creatine Kinase 865 units/L (55-170) H 07/31/16 08:39 CK-MB (CK-2) 5.9 ng/mL (0.0-4.0) H 07/31/16 08:39 CK-MB (CK-2) Rel Index 0.6 (0-4) 07/31/16 08:39 Troponin T 0.011 ng/mL (0.00-0.029) 07/31/16 08:39 Total Protein 6.2 g/dL (6.3-8.2) L 08/15/16 04:55 Albumin 2.2 g/dL (3.9-5) L 08/15/16 04:55 Albumin/Globulin Ratio 0.6 % 08/15/16 04:55 TSH 1.420 mlU/mL (0.270-4.200) 08/04/16 09:50 CSF Appearance Clear 08/04/16 11:54 CSF Color Colorless 08/04/16 11:54 CSF WBC 2 /mm3 (1-10) 08/04/16 11:54 CSF RBC 30 /mm3 (0-0) 08/04/16 11:54 CSF Seg Neutrophils 0 % (0-6) 08/04/16 11:54 CSF Lymphocytes % 66.7 % (40-80) 08/04/16 11:54 CSF Reactive Lymphs 0 % 08/04/16 11:54 CSF Monocytes % 33.3 % (15-45) 08/04/16 11:54 CSF Eosinophils % 0 % 08/04/16 11:54 CSF Basophils 0 % 08/04/16 11:54 CSF Pathologist Review C 08/04/16 11:54 CSF Glucose 90 mg/dL 08/04/16 11:54 CSF Total Protein 93 mg/dL 08/04/16 11:54 CSF VDRL Nonreactive (Nonreactive) 08/04/16 11:54 Salicylates < 0.3 mg/dL (2.8-20.0) L 07/31/16 00:02 Acetaminophen < 15.0 ug/mL (10.0-30.0) 07/31/16 00:02 Miscellaneous Test Flexitest 1 08/04/16 11:54 Blood Type O POSITIVE 07/30/16 23:40 MARK Antibody Screen Negative 07/30/16 23:40
--- NOTE | 2016-08-16 17:16 | Anesthesia Consultation ---
Anesthesia Consult and Med Hx Date of service: 08/16/16 - Airway Anesthetic Teeth Evaluation: Poor, Dentures (lower, not in mouth) Intubation Access Assessment: Possibly Difficult - Pulmonary Exam CTA: Yes - Cardiac Exam Cardiac Exam: RRR - Pre-Operative Health Status ASA Pre-Surgery Classification: ASA4 Proposed Anesthetic Plan: General - Pulmonary Hx Smoking: Yes (quit in 1989) - Cardiovascular System Hx Hypertension: Yes Hx Heart Attack/AMI: Yes (Mild, in 1999) Hx Pacemaker: No Hx Internal Defibrillator: No - Endocrine Hx Insulin Dependent Diabetes: Yes - Additional Comments Anesthesia Medical History Comments: Inubated due to stroke on July 30. Responds to painful stimuli, nothing purposful. Brother signed consent.
[2016-08-17] MEDS ORDERED: D50W (25GM) IV PRN (03:12)
[2016-08-17] MEDS: ASPIRIN PO SCH (09:27)
[2016-08-17] MEDS: PEPCID PO SCH ×2 (09:27→23:27)
--- NOTE | 2016-08-17 11:41 | Progress Note ---
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 1. Trach and peg today. 2. Continue Daily PSV trials and AC rest at night 3. Appreciate neuro help. Feel patient is better and they agree with trach and peg. 4. Blood sugars better with increased levemir. 5. Will continue to follow along with you CCT 31 minutes. Subjective Date of service: 08/17/16 Principal diagnosis: acute respiratory failure, encephalopathy Interval history: No acute event. Scheduled for trach this afternoon. Objective Vital Signs - 12hr 08/17/16 08/17/16 08/17/16 00:00 00:01 00:39 Temperature 99.9 F H Pulse Rate 88 93 H Respiratory 16 Rate Blood Pressure 129/55 129/55 O2 Sat by Pulse 97 94 96 Oximetry 08/17/16 08/17/16 08/17/16 01:00 02:00 03:00 Temperature Pulse Rate 87 80 83 Respiratory 16 15 16 Rate Blood Pressure 133/63 128/63 127/65 O2 Sat by Pulse 96 97 96 Oximetry 08/17/16 08/17/16 08/17/16 04:00 05:00 05:46 Temperature 99.8 F H Pulse Rate 78 89 102 H Respiratory 16 13 Rate Blood Pressure 134/61 138/68 138/68 O2 Sat by Pulse 96 95 99 Oximetry 08/17/16 08/17/16 08/17/16 06:00 07:00 08:00 Temperature 99.2 F Pulse Rate 95 H 77 Respiratory 13 16 Rate Blood Pressure 138/68 136/65 O2 Sat by Pulse 98 95 Oximetry 08/17/16 08/17/16 08:01 08:02 Temperature Pulse Rate 98 H 101 H Respiratory 14 14 Rate Blood Pressure 141/67 155/75 O2 Sat by Pulse 94 99 Oximetry Constitutional: no acute distress, other (intubated, ) Eyes: other (pupils are equal, very slowly reactive) ENT: other (orally intubated) Neck: supple, no JVD Ascultation: Bilateral: clear, diminished breath sounds Gastrointestinal: normoactive bowel sounds, soft, non-distended Integumentary: normal Extremities: no cyanosis, no edema Neurologic: other (no changes) CBC and BMP: 08/16/16 06:00 08/16/16 06:00 ABG, PT/INR, D-dimer: ABG POC ABG pH 7.441 (7.35-7.45) 08/14/16 09:52 POC ABG pCO2 39.5 (35-45) 08/14/16 09:52 POC ABG pO2 85 (80-105) 08/14/16 09:52 POC ABG HCO3 26.9 08/14/16 09:52 POC ABG Total CO2 28 08/14/16 09:52 POC ABG O2 Sat 97 08/14/16 09:52 PT/INR, D-dimer PT 17.2 Sec. (12.2-14.9) H 08/07/16 07:30 INR 1.41 (0.87-1.13) H 08/07/16 07:30 Abnormal lab findings: Abnormal Labs 07/31/16 07/31/16 07/31/16 08:39 10:07 12:07 WBC RBC Hgb Hct MCV MCH MCHC RDW Plt Count Lymph % (Auto) [place] % (Auto) Lymph # [place] # Seg Neutrophils % Seg Neuts % (Manual) Lymphocytes % (Manual) Monocytes % (Manual) Nucleated RBC % Seg Neutrophils # Man Lymphocytes # (Manual) PT INR APTT POC ABG pH POC ABG pCO2 POC ABG pO2 Sodium Chloride Carbon Dioxide BUN Creatinine Glucose POC Glucose 205 H 188 H Calcium AST ALT Alkaline Phosphatase Total Creatine Kinase 865 H CK-MB (CK-2) 5.9 H Total Protein Albumin 07/31/16 07/31/16 07/31/16 16:19 19:58 23:53 WBC RBC Hgb Hct MCV MCH MCHC RDW Plt Count Lymph % (Auto) [place] % (Auto) Lymph # [place] # Seg Neutrophils % Seg Neuts % (Manual) Lymphocytes % (Manual) Monocytes % (Manual) Nucleated RBC % Seg Neutrophils # Man Lymphocytes # (Manual) PT INR APTT POC ABG pH POC ABG pCO2 POC ABG pO2 Sodium Chloride Carbon Dioxide BUN Creatinine Glucose POC Glucose 195 H 147 H 160 H Calcium AST ALT Alkaline Phosphatase Total Creatine Kinase CK-MB (CK-2) Total Protein Albumin 08/01/16 08/01/16 08/01/16 04:18 04:42 07:45 WBC 14.8 H RBC Hgb 10.7 L Hct 34.9 L MCV 82 L MCH 25 L MCHC 31 L RDW 19.1 H Plt Count Lymph % (Auto) [place] % (Auto) Lymph # [place] # Seg Neutrophils % Seg Neuts % (Manual) 80.0 H Lymphocytes % (Manual) 12.0 L Monocytes % (Manual) Nucleated RBC % Seg Neutrophils # Man 11.8 H Lymphocytes # (Manual) PT INR APTT POC ABG pH POC ABG pCO2 33.4 L POC ABG pO2 66 L Sodium Chloride Carbon Dioxide BUN Creatinine Glucose POC Glucose 225 H Calcium AST ALT Alkaline Phosphatase Total Creatine Kinase CK-MB (CK-2) Total Protein Albumin 08/01/16 08/01/16 08/01/16 07:45 10:09 10:59 WBC RBC Hgb Hct MCV MCH MCHC RDW Plt Count Lymph % (Auto) [place] % (Auto) Lymph # [place] # Seg Neutrophils % Seg Neuts % (Manual) Lymphocytes % (Manual) Monocytes % (Manual) Nucleated RBC % Seg Neutrophils # Man Lymphocytes # (Manual) PT INR APTT POC ABG pH POC ABG pCO2 POC ABG pO2 Sodium Chloride Carbon Dioxide BUN 29 H Creatinine Glucose 233 H POC Glucose 266 H 318 H Calcium 7.6 L AST ALT Alkaline Phosphatase Total Creatine Kinase CK-MB (CK-2) Total Protein Albumin 08/01/16 08/01/16 08/01/16 14:24 17:56 21:21 WBC RBC Hgb Hct MCV MCH MCHC RDW Plt Count Lymph % (Auto) [place] % (Auto) Lymph # [place] # Seg Neutrophils % Seg Neuts % (Manual) Lymphocytes % (Manual) Monocytes % (Manual) Nucleated RBC % Seg Neutrophils # Man Lymphocytes # (Manual) PT INR APTT POC ABG pH POC ABG pCO2 POC ABG pO2 Sodium Chloride Carbon Dioxide BUN Creatinine Glucose POC Glucose 298 H 239 H 203 H Calcium AST ALT Alkaline Phosphatase Total Creatine Kinase CK-MB (CK-2) Total Protein Albumin 08/02/16 08/02/16 08/02/16 02:05 03:55 05:38 WBC RBC Hgb Hct MCV MCH MCHC RDW Plt Count Lymph % (Auto) [place] % (Auto) Lymph # [place] # Seg Neutrophils % Seg Neuts % (Manual) Lymphocytes % (Manual) Monocytes % (Manual) Nucleated RBC % Seg Neutrophils # Man Lymphocytes # (Manual) PT INR APTT POC ABG pH 7.460 H POC ABG pCO2 31.2 L POC ABG pO2 71 L Sodium Chloride Carbon Dioxide BUN Creatinine Glucose POC Glucose 248 H 253 H Calcium AST ALT Alkaline Phosphatase Total Creatine Kinase CK-MB (CK-2) Total Protein Albumin 08/02/16 08/02/16 08/02/16 09:11 09:44 09:44 WBC RBC 3.62 L Hgb 9.4 L Hct 29.1 L MCV 80 L MCH 26 L MCHC RDW 18.7 H Plt Count Lymph % (Auto) [place] % (Auto) 9.2 H Lymph # [place] # 1.0 H Seg Neutrophils % 72.0 H Seg Neuts % (Manual) Lymphocytes % (Manual) Monocytes % (Manual) Nucleated RBC % Seg Neutrophils # Man Lymphocytes # (Manual) PT INR APTT POC ABG pH POC ABG pCO2 POC ABG pO2 Sodium 135 L Chloride Carbon Dioxide 21 L BUN 42 H Creatinine Glucose 248 H POC Glucose 306 H Calcium 7.6 L AST ALT Alkaline Phosphatase Total Creatine Kinase CK-MB (CK-2) Total Protein Albumin 08/02/16 08/02/16 08/02/16 15:53 17:33 21:39 WBC RBC Hgb Hct MCV MCH MCHC RDW Plt Count Lymph % (Auto) [place] % (Auto) Lymph # [place] # Seg Neutrophils % Seg Neuts % (Manual) Lymphocytes % (Manual) Monocytes % (Manual) Nucleated RBC % Seg Neutrophils # Man Lymphocytes # (Manual) PT INR APTT POC ABG pH POC ABG pCO2 POC ABG pO2 Sodium Chloride Carbon Dioxide BUN Creatinine Glucose POC Glucose 205 H 250 H 282 H Calcium AST ALT Alkaline Phosphatase Total Creatine Kinase CK-MB (CK-2) Total Protein Albumin 08/03/16 08/03/16 08/03/16 02:28 05:47 07:05 WBC RBC 3.32 L Hgb 8.4 L Hct 26.5 L MCV 80 L MCH 25 L MCHC RDW 18.7 H Plt Count 112 L Lymph % (Auto) 12.5 L [place] % (Auto) 10.2 H Lymph # 1.0 L [place] # Seg Neutrophils % 75.9 H Seg Neuts % (Manual) Lymphocytes % (Manual) Monocytes % (Manual) Nucleated RBC % Seg Neutrophils # Man Lymphocytes # (Manual) PT INR APTT POC ABG pH POC ABG pCO2 POC ABG pO2 Sodium Chloride Carbon Dioxide BUN Creatinine Glucose POC Glucose 317 H 253 H Calcium AST ALT Alkaline Phosphatase Total Creatine Kinase CK-MB (CK-2) Total Protein Albumin 08/03/16 08/03/16 08/03/16 07:05 09:50 14:07 WBC RBC Hgb Hct MCV MCH MCHC RDW Plt Count Lymph % (Auto) [place] % (Auto) Lymph # [place] # Seg Neutrophils % Seg Neuts % (Manual) Lymphocytes % (Manual) Monocytes % (Manual) Nucleated RBC % Seg Neutrophils # Man Lymphocytes # (Manual) PT INR APTT POC ABG pH POC ABG pCO2 POC ABG pO2 Sodium 132 L Chloride Carbon Dioxide 20 L BUN 42 H Creatinine Glucose 243 H POC Glucose 332 H 345 H Calcium 6.8 L AST ALT Alkaline Phosphatase Total Creatine Kinase CK-MB (CK-2) Total Protein Albumin 08/03/16 08/03/16 08/04/16 17:38 21:36 02:18 WBC RBC Hgb Hct MCV MCH MCHC RDW Plt Count Lymph % (Auto) [place] % (Auto) Lymph # [place] # Seg Neutrophils % Seg Neuts % (Manual) Lymphocytes % (Manual) Monocytes % (Manual) Nucleated RBC % Seg Neutrophils # Man Lymphocytes # (Manual) PT INR APTT POC ABG pH POC ABG pCO2 POC ABG pO2 Sodium Chloride Carbon Dioxide BUN Creatinine Glucose POC Glucose 262 H 260 H 256 H Calcium AST ALT Alkaline Phosphatase Total Creatine Kinase CK-MB (CK-2) Total Protein Albumin 08/04/16 08/04/16 08/04/16 05:41 06:00 10:20 WBC RBC Hgb Hct MCV MCH MCHC RDW Plt Count Lymph % (Auto) [place] % (Auto) Lymph # [place] # Seg Neutrophils % Seg Neuts % (Manual) Lymphocytes % (Manual) Monocytes % (Manual) Nucleated RBC % Seg Neutrophils # Man Lymphocytes # (Manual) PT INR APTT POC ABG pH POC ABG pCO2 POC ABG pO2 Sodium Chloride Carbon Dioxide BUN 34 H Creatinine 0.7 L Glucose 237 H POC Glucose 265 H 266 H Calcium 7.9 L D AST ALT Alkaline Phosphatase Total Creatine Kinase CK-MB (CK-2) Total Protein Albumin 08/04/16 08/04/16 08/04/16 14:20 17:31 21:52 WBC RBC Hgb Hct MCV MCH MCHC RDW Plt Count Lymph % (Auto) [place] % (Auto) Lymph # [place] # Seg Neutrophils % Seg Neuts % (Manual) Lymphocytes % (Manual) Monocytes % (Manual) Nucleated RBC % Seg Neutrophils # Man Lymphocytes # (Manual) PT INR APTT POC ABG pH POC ABG pCO2 POC ABG pO2 Sodium Chloride Carbon Dioxide BUN Creatinine Glucose POC Glucose 302 H 337 H 340 H Calcium AST ALT Alkaline Phosphatase Total Creatine Kinase CK-MB (CK-2) Total Protein Albumin 08/05/16 08/05/16 08/05/16 01:43 05:00 05:00 WBC RBC Hgb 9.5 L Hct 30.1 L MCV 81 L MCH 26 L MCHC RDW 19.1 H Plt Count 112 L Lymph % (Auto) [place] % (Auto) Lymph # [place] # Seg Neutrophils % Seg Neuts % (Manual) Lymphocytes % (Manual) Monocytes % (Manual) Nucleated RBC % Seg Neutrophils # Man Lymphocytes # (Manual) PT INR APTT POC ABG pH POC ABG pCO2 POC ABG pO2 Sodium Chloride Carbon Dioxide BUN 27 H Creatinine 0.7 L Glucose 212 H POC Glucose 247 H Calcium 8.3 L AST 92 H ALT 81 H Alkaline Phosphatase 629 H Total Creatine Kinase CK-MB (CK-2) Total Protein 5.9 L Albumin 2.2 L 08/05/16 08/05/16 08/05/16 05:14 05:19 10:12 WBC RBC Hgb Hct MCV MCH MCHC RDW Plt Count Lymph % (Auto) [place] % (Auto) Lymph # [place] # Seg Neutrophils % Seg Neuts % (Manual) Lymphocytes % (Manual) Monocytes % (Manual) Nucleated RBC % Seg Neutrophils # Man Lymphocytes # (Manual) PT INR APTT POC ABG pH 7.469 H POC ABG pCO2 POC ABG pO2 109 H Sodium Chloride Carbon Dioxide BUN Creatinine Glucose POC Glucose 208 H 206 H Calcium AST ALT Alkaline Phosphatase Total Creatine Kinase CK-MB (CK-2) Total Protein Albumin 08/05/16 08/05/16 08/05/16 13:54 18:31 22:06 WBC RBC Hgb Hct MCV MCH MCHC RDW Plt Count Lymph % (Auto) [place] % (Auto) Lymph # [place] # Seg Neutrophils % Seg Neuts % (Manual) Lymphocytes % (Manual) Monocytes % (Manual) Nucleated RBC % Seg Neutrophils # Man Lymphocytes # (Manual) PT INR APTT POC ABG pH POC ABG pCO2 POC ABG pO2 Sodium Chloride Carbon Dioxide BUN Creatinine Glucose POC Glucose 226 H 229 H 245 H Calcium AST ALT Alkaline Phosphatase Total Creatine Kinase CK-MB (CK-2) Total Protein Albumin 08/06/16 08/06/16 08/06/16 02:03 05:31 05:42 WBC RBC Hgb Hct MCV MCH MCHC RDW Plt Count Lymph % (Auto) [place] % (Auto) Lymph # [place] # Seg Neutrophils % Seg Neuts % (Manual) Lymphocytes % (Manual) Monocytes % (Manual) Nucleated RBC % Seg Neutrophils # Man Lymphocytes # (Manual) PT INR APTT POC ABG pH POC ABG pCO2 POC ABG pO2 62 L Sodium Chloride Carbon Dioxide BUN Creatinine Glucose POC Glucose 237 H 205 H Calcium AST ALT Alkaline Phosphatase Total Creatine Kinase CK-MB (CK-2) Total Protein Albumin 08/06/16 08/06/16 08/06/16 09:36 11:30 14:23 WBC RBC Hgb Hct MCV MCH MCHC RDW Plt Count Lymph % (Auto) [place] % (Auto) Lymph # [place] # Seg Neutrophils % Seg Neuts % (Manual) Lymphocytes % (Manual) Monocytes % (Manual) Nucleated RBC % Seg Neutrophils # Man Lymphocytes # (Manual) PT 18.9 H INR 1.59 H APTT 39.7 H POC ABG pH POC ABG pCO2 POC ABG pO2 Sodium Chloride Carbon Dioxide BUN Creatinine Glucose POC Glucose 279 H 264 H Calcium AST ALT Alkaline Phosphatase Total Creatine Kinase CK-MB (CK-2) Total Protein Albumin 08/06/16 08/07/16 08/07/16 18:07 03:01 05:18 WBC RBC Hgb Hct MCV MCH MCHC RDW Plt Count Lymph % (Auto) [place] % (Auto) Lymph # [place] # Seg Neutrophils % Seg Neuts % (Manual) Lymphocytes % (Manual) Monocytes % (Manual) Nucleated RBC % Seg Neutrophils # Man Lymphocytes # (Manual) PT INR APTT POC ABG pH 7.459 H POC ABG pCO2 POC ABG pO2 Sodium Chloride Carbon Dioxide BUN Creatinine Glucose POC Glucose 176 H 172 H Calcium AST ALT Alkaline Phosphatase Total Creatine Kinase CK-MB (CK-2) Total Protein Albumin 08/07/16 08/07/16 08/07/16 05:32 07:30 07:30 WBC RBC 3.39 L Hgb 8.6 L Hct 27.2 L MCV 80 L MCH 25 L MCHC RDW 19.1 H Plt Count 136 L Lymph % (Auto) [place] % (Auto) Lymph # [place] # Seg Neutrophils % Seg Neuts % (Manual) 84.0 H Lymphocytes % (Manual) 4.0 L Monocytes % (Manual) 8.0 H Nucleated RBC % Seg Neutrophils # Man 8.2 H Lymphocytes # (Manual) 0.4 L PT 17.2 H INR 1.41 H APTT POC ABG pH POC ABG pCO2 POC ABG pO2 Sodium Chloride Carbon Dioxide BUN Creatinine Glucose POC Glucose 204 H Calcium AST ALT Alkaline Phosphatase Total Creatine Kinase CK-MB (CK-2) Total Protein Albumin 08/07/16 08/07/16 08/07/16 07:30 10:03 14:35 WBC RBC Hgb Hct MCV MCH MCHC RDW Plt Count Lymph % (Auto) [place] % (Auto) Lymph # [place] # Seg Neutrophils % Seg Neuts % (Manual) Lymphocytes % (Manual) Monocytes % (Manual) Nucleated RBC % Seg Neutrophils # Man Lymphocytes # (Manual) PT INR APTT POC ABG pH POC ABG pCO2 POC ABG pO2 Sodium Chloride Carbon Dioxide BUN 27 H Creatinine 0.7 L Glucose 201 H POC Glucose 233 H 255 H Calcium 7.9 L AST 73 H ALT 74 H Alkaline Phosphatase 595 H Total Creatine Kinase CK-MB (CK-2) Total Protein 5.1 L Albumin 1.8 L 08/07/16 08/07/16 08/08/16 16:09 22:01 01:27 WBC RBC Hgb Hct MCV MCH MCHC RDW Plt Count Lymph % (Auto) [place] % (Auto) Lymph # [place] # Seg Neutrophils % Seg Neuts % (Manual) Lymphocytes % (Manual) Monocytes % (Manual) Nucleated RBC % Seg Neutrophils # Man Lymphocytes # (Manual) PT INR APTT POC ABG pH POC ABG pCO2 POC ABG pO2 Sodium Chloride Carbon Dioxide BUN Creatinine Glucose POC Glucose 259 H 255 H 252 H Calcium AST ALT Alkaline Phosphatase Total Creatine Kinase CK-MB (CK-2) Total Protein Albumin 08/08/16 08/08/16 08/08/16 05:13 06:23 07:40 WBC RBC 3.36 L Hgb 8.5 L Hct 27.1 L MCV 81 L MCH 25 L MCHC 31 L RDW 18.8 H Plt Count 129 L Lymph % (Auto) [place] % (Auto) Lymph # [place] # Seg Neutrophils % Seg Neuts % (Manual) Lymphocytes % (Manual) Monocytes % (Manual) Nucleated RBC % 2.0 H Seg Neutrophils # Man Lymphocytes # (Manual) PT INR APTT POC ABG pH 7.460 H POC ABG pCO2 POC ABG pO2 74 L Sodium Chloride Carbon Dioxide BUN Creatinine Glucose POC Glucose 264 H Calcium AST ALT Alkaline Phosphatase Total Creatine Kinase CK-MB (CK-2) Total Protein Albumin 08/08/16 08/08/16 08/08/16 07:40 10:01 15:00 WBC RBC Hgb Hct MCV MCH MCHC RDW Plt Count Lymph % (Auto) [place] % (Auto) Lymph # [place] # Seg Neutrophils % Seg Neuts % (Manual) Lymphocytes % (Manual) Monocytes % (Manual) Nucleated RBC % Seg Neutrophils # Man Lymphocytes # (Manual) PT INR APTT POC ABG pH POC ABG pCO2 POC ABG pO2 Sodium Chloride Carbon Dioxide BUN 26 H Creatinine 0.7 L Glucose 233 H POC Glucose 271 H 275 H Calcium 7.6 L AST 77 H ALT 71 H Alkaline Phosphatase 658 H Total Creatine Kinase CK-MB (CK-2) Total Protein 5.0 L Albumin 1.6 L 08/08/16 08/08/16 08/08/16 17:28 21:32 23:53 WBC RBC Hgb Hct MCV MCH MCHC RDW Plt Count Lymph % (Auto) [place] % (Auto) Lymph # [place] # Seg Neutrophils % Seg Neuts % (Manual) Lymphocytes % (Manual) Monocytes % (Manual) Nucleated RBC % Seg Neutrophils # Man Lymphocytes # (Manual) PT INR APTT POC ABG pH POC ABG pCO2 POC ABG pO2 Sodium Chloride Carbon Dioxide BUN Creatinine Glucose POC Glucose 275 H 252 H 246 H Calcium AST ALT Alkaline Phosphatase Total Creatine Kinase CK-MB (CK-2) Total Protein Albumin 08/09/16 08/09/16 08/09/16 03:32 05:00 05:00 WBC RBC 3.34 L Hgb 8.3 L Hct 26.7 L MCV 80 L MCH 25 L MCHC 31 L RDW 18.5 H Plt Count Lymph % (Auto) [place] % (Auto) Lymph # [place] # Seg Neutrophils % Seg Neuts % (Manual) Lymphocytes % (Manual) Monocytes % (Manual) Nucleated RBC % Seg Neutrophils # Man Lymphocytes # (Manual) PT INR APTT POC ABG pH POC ABG pCO2 POC ABG pO2 Sodium Chloride Carbon Dioxide BUN 25 H Creatinine 0.5 L Glucose 230 H POC Glucose 260 H Calcium 7.6 L AST ALT Alkaline Phosphatase Total Creatine Kinase CK-MB (CK-2) Total Protein Albumin 08/09/16 08/09/16 08/09/16 06:00 10:07 14:07 WBC RBC Hgb Hct MCV MCH MCHC RDW Plt Count Lymph % (Auto) [place] % (Auto) Lymph # [place] # Seg Neutrophils % Seg Neuts % (Manual) Lymphocytes % (Manual) Monocytes % (Manual) Nucleated RBC % Seg Neutrophils # Man Lymphocytes # (Manual) PT INR APTT POC ABG pH 7.493 H POC ABG pCO2 POC ABG pO2 Sodium Chloride Carbon Dioxide BUN Creatinine Glucose POC Glucose 216 H 220 H Calcium AST ALT Alkaline Phosphatase Total Creatine Kinase CK-MB (CK-2) Total Protein Albumin 08/09/16 08/09/16 08/10/16 16:55 21:07 02:09 WBC RBC Hgb Hct MCV MCH MCHC RDW Plt Count Lymph % (Auto) [place] % (Auto) Lymph # [place] # Seg Neutrophils % Seg Neuts % (Manual) Lymphocytes % (Manual) Monocytes % (Manual) Nucleated RBC % Seg Neutrophils # Man Lymphocytes # (Manual) PT INR APTT POC ABG pH POC ABG pCO2 POC ABG pO2 Sodium Chloride Carbon Dioxide BUN Creatinine Glucose POC Glucose 242 H 235 H 228 H Calcium AST ALT Alkaline Phosphatase Total Creatine Kinase CK-MB (CK-2) Total Protein Albumin 08/10/16 08/10/16 08/10/16 05:31 09:06 13:45 WBC RBC Hgb Hct MCV MCH MCHC RDW Plt Count Lymph % (Auto) [place] % (Auto) Lymph # [place] # Seg Neutrophils % Seg Neuts % (Manual) Lymphocytes % (Manual) Monocytes % (Manual) Nucleated RBC % Seg Neutrophils # Man Lymphocytes # (Manual) PT INR APTT POC ABG pH POC ABG pCO2 POC ABG pO2 Sodium Chloride Carbon Dioxide BUN Creatinine Glucose POC Glucose 201 H 229 H 274 H Calcium AST ALT Alkaline Phosphatase Total Creatine Kinase CK-MB (CK-2) Total Protein Albumin 08/10/16 08/10/16 08/10/16 17:53 21:43 Unknown WBC RBC 3.42 L Hgb 8.6 L Hct 27.5 L MCV 80 L MCH 25 L MCHC RDW 19.1 H Plt Count Lymph % (Auto) [place] % (Auto) Lymph # [place] # Seg Neutrophils % Seg Neuts % (Manual) Lymphocytes % (Manual) Monocytes % (Manual) Nucleated RBC % Seg Neutrophils # Man Lymphocytes # (Manual) PT INR APTT POC ABG pH POC ABG pCO2 POC ABG pO2 Sodium Chloride Carbon Dioxide BUN Creatinine Glucose POC Glucose 284 H 328 H Calcium AST ALT Alkaline Phosphatase Total Creatine Kinase CK-MB (CK-2) Total Protein Albumin 08/10/16 08/11/16 08/11/16 Unknown 01:37 05:39 WBC RBC Hgb Hct MCV MCH MCHC RDW Plt Count Lymph % (Auto) [place] % (Auto) Lymph # [place] # Seg Neutrophils % Seg Neuts % (Manual) Lymphocytes % (Manual) Monocytes % (Manual) Nucleated RBC % Seg Neutrophils # Man Lymphocytes # (Manual) PT INR APTT POC ABG pH POC ABG pCO2 POC ABG pO2 Sodium Chloride Carbon Dioxide BUN 27 H Creatinine 0.6 L Glucose 211 H POC Glucose 340 H 323 H Calcium 7.8 L AST ALT Alkaline Phosphatase Total Creatine Kinase CK-MB (CK-2) Total Protein Albumin 08/11/16 08/11/16 08/11/16 09:58 15:22 17:41 WBC RBC Hgb Hct MCV MCH MCHC RDW Plt Count Lymph % (Auto) [place] % (Auto) Lymph # [place] # Seg Neutrophils % Seg Neuts % (Manual) Lymphocytes % (Manual) Monocytes % (Manual) Nucleated RBC % Seg Neutrophils # Man Lymphocytes # (Manual) PT INR APTT POC ABG pH POC ABG pCO2 POC ABG pO2 Sodium Chloride Carbon Dioxide BUN Creatinine Glucose POC Glucose 295 H 210 H 164 H Calcium AST ALT Alkaline Phosphatase Total Creatine Kinase CK-MB (CK-2) Total Protein Albumin 08/11/16 08/12/16 08/12/16 21:53 01:56 05:15 WBC RBC Hgb Hct MCV MCH MCHC RDW Plt Count Lymph % (Auto) [place] % (Auto) Lymph # [place] # Seg Neutrophils % Seg Neuts % (Manual) Lymphocytes % (Manual) Monocytes % (Manual) Nucleated RBC % Seg Neutrophils # Man Lymphocytes # (Manual) PT INR APTT POC ABG pH POC ABG pCO2 POC ABG pO2 Sodium Chloride Carbon Dioxide BUN Creatinine Glucose POC Glucose 171 H 205 H 156 H Calcium AST ALT Alkaline Phosphatase Total Creatine Kinase CK-MB (CK-2) Total Protein Albumin 08/12/16 08/12/16 08/12/16 10:10 14:33 17:53 WBC RBC Hgb Hct MCV MCH MCHC RDW Plt Count Lymph % (Auto) [place] % (Auto) Lymph # [place] # Seg Neutrophils % Seg Neuts % (Manual) Lymphocytes % (Manual) Monocytes % (Manual) Nucleated RBC % Seg Neutrophils # Man Lymphocytes # (Manual) PT INR APTT POC ABG pH POC ABG pCO2 POC ABG pO2 Sodium Chloride Carbon Dioxide BUN Creatinine Glucose POC Glucose 224 H 245 H 259 H Calcium AST ALT Alkaline Phosphatase Total Creatine Kinase CK-MB (CK-2) Total Protein Albumin 08/12/16 08/13/16 08/13/16 21:56 04:00 04:02 WBC RBC Hgb Hct MCV MCH MCHC RDW Plt Count Lymph % (Auto) [place] % (Auto) Lymph # [place] # Seg Neutrophils % Seg Neuts % (Manual) Lymphocytes % (Manual) Monocytes % (Manual) Nucleated RBC % Seg Neutrophils # Man Lymphocytes # (Manual) PT INR APTT POC ABG pH POC ABG pCO2 POC ABG pO2 Sodium 136 L Chloride 97.2 L Carbon Dioxide BUN 26 H Creatinine 0.6 L Glucose 185 H POC Glucose 229 H 202 H Calcium 7.3 L AST ALT Alkaline Phosphatase Total Creatine Kinase CK-MB (CK-2) Total Protein Albumin 08/13/16 08/13/16 08/13/16 06:47 09:53 13:40 WBC RBC Hgb Hct MCV MCH MCHC RDW Plt Count Lymph % (Auto) [place] % (Auto) Lymph # [place] # Seg Neutrophils % Seg Neuts % (Manual) Lymphocytes % (Manual) Monocytes % (Manual) Nucleated RBC % Seg Neutrophils # Man Lymphocytes # (Manual) PT INR APTT POC ABG pH POC ABG pCO2 POC ABG pO2 Sodium Chloride Carbon Dioxide BUN Creatinine Glucose POC Glucose 191 H 221 H 225 H Calcium AST ALT Alkaline Phosphatase Total Creatine Kinase CK-MB (CK-2) Total Protein Albumin 08/13/16 08/13/16 08/13/16 17:07 21:09 Unknown WBC RBC 3.53 L Hgb 8.9 L Hct 28.4 L MCV 81 L MCH 25 L MCHC 31 L RDW 19.2 H Plt Count Lymph % (Auto) [place] % (Auto) Lymph # [place] # Seg Neutrophils % Seg Neuts % (Manual) Lymphocytes % (Manual) Monocytes % (Manual) Nucleated RBC % Seg Neutrophils # Man Lymphocytes # (Manual) PT INR APTT POC ABG pH POC ABG pCO2 POC ABG pO2 Sodium Chloride Carbon Dioxide BUN Creatinine Glucose POC Glucose 232 H 166 H Calcium AST ALT Alkaline Phosphatase Total Creatine Kinase CK-MB (CK-2) Total Protein Albumin 08/14/16 08/14/16 08/14/16 01:42 05:16 08:57 WBC RBC Hgb Hct MCV MCH MCHC RDW Plt Count Lymph % (Auto) [place] % (Auto) Lymph # [place] # Seg Neutrophils % Seg Neuts % (Manual) Lymphocytes % (Manual) Monocytes % (Manual) Nucleated RBC % Seg Neutrophils # Man Lymphocytes # (Manual) PT INR APTT POC ABG pH POC ABG pCO2 POC ABG pO2 Sodium Chloride Carbon Dioxide BUN Creatinine Glucose POC Glucose 172 H 182 H 233 H Calcium AST ALT Alkaline Phosphatase Total Creatine Kinase CK-MB (CK-2) Total Protein Albumin 08/14/16 08/14/16 08/14/16 11:30 14:09 17:48 WBC RBC Hgb Hct MCV MCH MCHC RDW Plt Count Lymph % (Auto) [place] % (Auto) Lymph # [place] # Seg Neutrophils % Seg Neuts % (Manual) Lymphocytes % (Manual) Monocytes % (Manual) Nucleated RBC % Seg Neutrophils # Man Lymphocytes # (Manual) PT INR APTT POC ABG pH POC ABG pCO2 POC ABG pO2 Sodium 135 L Chloride 97.0 L Carbon Dioxide BUN 31 H Creatinine 0.7 L Glucose 271 H POC Glucose 302 H 260 H Calcium 7.4 L AST 86 H ALT 79 H Alkaline Phosphatase 1015 H Total Creatine Kinase CK-MB (CK-2) Total Protein 6.1 L Albumin 2.1 L 08/14/16 08/15/16 08/15/16 22:26 01:58 04:55 WBC RBC Hgb 9.1 L Hct 28.8 L MCV 79 L MCH 25 L MCHC RDW 19.1 H Plt Count Lymph % (Auto) [place] % (Auto) Lymph # [place] # Seg Neutrophils % Seg Neuts % (Manual) Lymphocytes % (Manual) Monocytes % (Manual) Nucleated RBC % Seg Neutrophils # Man Lymphocytes # (Manual) PT INR APTT POC ABG pH POC ABG pCO2 POC ABG pO2 Sodium Chloride Carbon Dioxide BUN Creatinine Glucose POC Glucose 188 H 200 H Calcium AST ALT Alkaline Phosphatase Total Creatine Kinase CK-MB (CK-2) Total Protein Albumin 08/15/16 08/15/16 08/15/16 04:55 09:43 13:06 WBC RBC Hgb Hct MCV MCH MCHC RDW Plt Count Lymph % (Auto) [place] % (Auto) Lymph # [place] # Seg Neutrophils % Seg Neuts % (Manual) Lymphocytes % (Manual) Monocytes % (Manual) Nucleated RBC % Seg Neutrophils # Man Lymphocytes # (Manual) PT INR APTT POC ABG pH POC ABG pCO2 POC ABG pO2 Sodium 133 L Chloride 96.2 L Carbon Dioxide BUN 35 H Creatinine 0.6 L Glucose 168 H POC Glucose 253 H 196 H Calcium 7.6 L AST 87 H ALT 77 H Alkaline Phosphatase 1075 H Total Creatine Kinase CK-MB (CK-2) Total Protein 6.2 L Albumin 2.2 L 08/15/16 08/15/16 08/16/16 17:13 21:27 02:00 WBC RBC Hgb Hct MCV MCH MCHC RDW Plt Count Lymph % (Auto) [place] % (Auto) Lymph # [place] # Seg Neutrophils % Seg Neuts % (Manual) Lymphocytes % (Manual) Monocytes % (Manual) Nucleated RBC % Seg Neutrophils # Man Lymphocytes # (Manual) PT INR APTT POC ABG pH POC ABG pCO2 POC ABG pO2 Sodium Chloride Carbon Dioxide BUN Creatinine Glucose POC Glucose 152 H 119 H 171 H Calcium AST ALT Alkaline Phosphatase Total Creatine Kinase CK-MB (CK-2) Total Protein Albumin 08/16/16 08/16/16 08/16/16 05:29 06:00 06:00 WBC 11.2 H RBC Hgb 9.6 L Hct 30.8 L MCV 79 L MCH 25 L MCHC 31 L RDW 19.2 H Plt Count Lymph % (Auto) [place] % (Auto) Lymph # [place] # Seg Neutrophils % Seg Neuts % (Manual) 83.0 H Lymphocytes % (Manual) 12.0 L Monocytes % (Manual) Nucleated RBC % Seg Neutrophils # Man 9.3 H Lymphocytes # (Manual) PT INR APTT POC ABG pH POC ABG pCO2 POC ABG pO2 Sodium Chloride Carbon Dioxide BUN 30 H Creatinine 0.6 L Glucose 136 H POC Glucose 164 H Calcium 7.5 L AST ALT Alkaline Phosphatase Total Creatine Kinase CK-MB (CK-2) Total Protein Albumin 08/16/16 08/16/16 08/16/16 09:31 13:27 17:28 WBC RBC Hgb Hct MCV MCH MCHC RDW Plt Count Lymph % (Auto) [place] % (Auto) Lymph # [place] # Seg Neutrophils % Seg Neuts % (Manual) Lymphocytes % (Manual) Monocytes % (Manual) Nucleated RBC % Seg Neutrophils # Man Lymphocytes # (Manual) PT INR APTT POC ABG pH POC ABG pCO2 POC ABG pO2 Sodium Chloride Carbon Dioxide BUN Creatinine Glucose POC Glucose 270 H 217 H 227 H Calcium AST ALT Alkaline Phosphatase Total Creatine Kinase CK-MB (CK-2) Total Protein Albumin 08/16/16 08/17/16 21:32 05:50 WBC RBC Hgb Hct MCV MCH MCHC RDW Plt Count Lymph % (Auto) [place] % (Auto) Lymph # [place] # Seg Neutrophils % Seg Neuts % (Manual) Lymphocytes % (Manual) Monocytes % (Manual) Nucleated RBC % Seg Neutrophils # Man Lymphocytes # (Manual) PT INR APTT POC ABG pH POC ABG pCO2 POC ABG pO2 Sodium Chloride Carbon Dioxide BUN Creatinine Glucose POC Glucose 186 H 131 H Calcium AST ALT Alkaline Phosphatase Total Creatine Kinase CK-MB (CK-2) Total Protein Albumin
--- NOTE | 2016-08-17 11:59 | Progress Note ---
Assessment and Plan Assessment and plan: Acute Respiratory failure - still intubated on vent, pulmonary following - Multiple failed weaning attempts -Continue daily PSV and AC rest at night. - For Tracheostomy and PEG tube placement. Sepsis with PNA -pt had elevated white count on admission, tachycardia and fever -tracheal aspirate grew Pseudomonas, resistant to zosyn -Completed Meropenem. 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 -Continue Accu-Cheks and sliding scale insulin. Hyperlipidemia - cont statin BPH - monitor urine output Prognosis guarded History Interval history: Patient is 76 year-old man with a history of hypertension, diabetes, hyperlipidemia, BPH, was brought to the emergency room because son found him on the floor unresponsive. Patient was intubated in the emergency room. MRI of brain showed bilateral acute ischemic stroke. Tracheal aspirate growing Pseudomonas Aeruginosa and Escherichia Coli. No new issues overnight. Hospitalist Physical - Constitutional Vitals: Temp Pulse Resp BP Pulse Ox 99.2 F 101 H 14 155/75 99 08/17/16 08:00 08/17/16 08:02 08/17/16 08:02 08/17/16 08:02 08/17/16 08:02 General appearance: Present: other (intubated, FiO2 30%; opens eyes briefly to voice and tactile stimuli) - EENT Eyes: Present: PERRL, EOM intact ENT: hearing intact, clear oral mucosa, dentition normal - Neck Neck: Present: supple, normal ROM - Respiratory Respiratory effort: normal Respiratory: bilateral: diminished, rhonchi - Cardiovascular Rhythm: regular Heart Sounds: Present: S1 & S2. Absent: gallop, rub - Extremities Extremities: no ischemia, No edema, Full ROM - Abdominal General gastrointestinal: soft, non-tender, non-distended, normal bowel sounds - Integumentary Integumentary: Present: clear, warm, dry - Neurologic Neurologic: CNII-XII intact, moves all extremities Results - Labs CBC & Chem 7: 08/16/16 06:00 08/16/16 06:00 Labs: Laboratory Last Values WBC 11.2 K/mm3 (4.5-11.0) H 08/16/16 06:00 RBC 3.88 M/mm3 (3.65-5.03) 08/16/16 06:00 Hgb 9.6 gm/dl (11.8-15.2) L 08/16/16 06:00 Hct 30.8 % (35.5-45.6) L 08/16/16 06:00 MCV 79 fl (84-94) L 08/16/16 06:00 MCH 25 pg (28-32) L 08/16/16 06:00 MCHC 31 % (32-34) L 08/16/16 06:00 RDW 19.2 % (13.2-15.2) H 08/16/16 06:00 Plt Count 228 K/mm3 (140-440) 08/16/16 06:00 Lymph % (Auto) Court Security [employer] 08/08/16 07:40 [place] % (Auto) Court Security Officer 08/08/16 07:40 Eos % (Auto) Court Security Officer 08/08/16 07:40 Baso % (Auto) Court Security Officer 08/08/16 07:40 Lymph # [employer] Officer 08/08/16 07:40 [place] # Court Security Officer 08/08/16 07:40 Eos # Court Security Officer 08/08/16 07:40 Baso # Court Security Officer 08/08/16 07:40 Add Manual Diff Complete 08/16/16 06:00 Total Counted 100 08/16/16 06:00 Seg Neutrophils % [employer] Officer 08/08/16 07:40 Seg Neuts % (Manual) 83.0 % (40.0-70.0) H 08/16/16 06:00 Band Neutrophils % 0 % 08/16/16 06:00 Lymphocytes % (Manual) 12.0 % (13.4-35.0) L 08/16/16 06:00 Reactive Lymphs % (Man) 0 % 08/16/16 06:00 Monocytes % (Manual) 5.0 % (0.0-7.3) 08/16/16 06:00 Eosinophils % (Manual) 0 % (0.0-4.3) 08/16/16 06:00 Basophils % (Manual) 0 % (0.0-1.8) 08/16/16 06:00 Metamyelocytes % 0 % 08/16/16 06:00 Myelocytes % 0 % 08/16/16 06:00 Promyelocytes % 0 % 08/16/16 06:00 Blast Cells % 0 % 08/16/16 06:00 Nucleated RBC % Not Reportable 08/16/16 06:00 Seg Neutrophils # Court Security Officer 08/08/16 07:40 Seg Neutrophils # Man 9.3 K/mm3 (1.8-7.7) H 08/16/16 06:00 Band Neutrophils # 0.0 K/mm3 08/16/16 06:00 Lymphocytes # (Manual) 1.3 K/mm3 (1.2-5.4) 08/16/16 06:00 Abs React Lymphs (Man) 0.0 K/mm3 08/16/16 06:00 Monocytes # (Manual) 0.6 K/mm3 (0.0-0.8) 08/16/16 06:00 Eosinophils # (Manual) 0.0 K/mm3 (0.0-0.4) 08/16/16 06:00 Basophils # (Manual) 0.0 K/mm3 (0.0-0.1) 08/16/16 06:00 Metamyelocytes # 0.0 K/mm3 08/16/16 06:00 Myelocytes # 0.0 K/mm3 08/16/16 06:00 Promyelocytes # 0.0 K/mm3 08/16/16 06:00 Blast Cells # 0.0 K/mm3 08/16/16 06:00 WBC Morphology Not Reportable 08/16/16 06:00 Hypersegmented Neuts Not Reportable 08/16/16 06:00 Hyposegmented Neuts Not Reportable 08/16/16 06:00 Hypogranular Neuts Not Reportable 08/16/16 06:00 Smudge Cells Not Reportable 08/16/16 06:00 Toxic Granulation Not Reportable 08/16/16 06:00 Toxic Vacuolation Not Reportable 08/16/16 06:00 Dohle Bodies Not Reportable 08/16/16 06:00 Pelger-Huet Anomaly Not Reportable 08/16/16 06:00 Leta Rods Not Reportable 08/16/16 06:00 Platelet Estimate Consistent w auto 08/16/16 06:00 Clumped Platelets Not Reportable 08/16/16 06:00 Plt Clumps, EDTA Not Reportable 08/16/16 06:00 Large Platelets Not Reportable 08/16/16 06:00 Giant Platelets Not Reportable 08/16/16 06:00 Platelet Satelliting Not Reportable 08/16/16 06:00 Plt Morphology Comment Not Reportable 08/16/16 06:00 RBC Morphology Not Reportable 08/16/16 06:00 Dimorphic RBCs Not Reportable 08/16/16 06:00 Polychromasia Not Reportable 08/16/16 06:00 Hypochromasia 1+ 08/16/16 06:00 Poikilocytosis 1+ 08/16/16 06:00 Anisocytosis Not Reportable 08/16/16 06:00 Microcytosis Not Reportable 08/16/16 06:00 Macrocytosis Not Reportable 08/16/16 06:00 Spherocytes Not Reportable 08/16/16 06:00 Pappenheimer Bodies Not Reportable 08/16/16 06:00 Sickle Cells Not Reportable 08/16/16 06:00 Target Cells Not Reportable 08/16/16 06:00 Tear Drop Cells Rare 08/16/16 06:00 Ovalocytes Rare 08/16/16 06:00 Helmet Cells Not Reportable 08/16/16 06:00 Das-[place] Bodies Not Reportable 08/16/16 06:00 [place] Rings Not Reportable 08/16/16 06:00 [place] Cells Not Reportable 08/16/16 06:00 Bite Cells Not Reportable 08/16/16 06:00 Crenated Cell Not Reportable 08/16/16 06:00 Elliptocytes Not Reportable 08/16/16 06:00 Acanthocytes (Spur) Not Reportable 08/16/16 06:00 Rouleaux Not Reportable 08/16/16 06:00 Hemoglobin C Crystals Not Reportable 08/16/16 06:00 Schistocytes Not Reportable 08/16/16 06:00 Malaria parasites Not Reportable 08/16/16 06:00 Reece Bodies Not Reportable 08/16/16 06:00 Hem Pathologist Commnt No 08/16/16 06:00 PT 17.2 Sec. (12.2-14.9) H 08/07/16 07:30 INR 1.41 (0.87-1.13) H 08/07/16 07:30 APTT 36.5 Sec. (24.2-36.6) 08/07/16 07:30 POC ABG pH 7.441 (7.35-7.45) 08/14/16 09:52 POC ABG pCO2 39.5 (35-45) 08/14/16 09:52 POC ABG pO2 85 (80-105) 08/14/16 09:52 POC ABG HCO3 26.9 08/14/16 09:52 POC ABG Total CO2 28 08/14/16 09:52 POC ABG O2 Sat 97 08/14/16 09:52 POC ABG Base Excess 3 08/14/16 09:52 VBG pH 7.447 (7.320-7.420) H 07/31/16 00:13 FiO2 30 % 08/14/16 09:52 Sodium 137 mmol/L (137-145) 08/16/16 06:00 Potassium 4.4 mmol/L (3.6-5.0) 08/16/16 06:00 Chloride 99.5 mmol/L (98-107) 08/16/16 06:00 Carbon Dioxide 27 mmol/L (22-30) 08/16/16 06:00 Anion Gap 15 mmol/L 08/16/16 06:00 BUN 30 mg/dL (9-20) H 08/16/16 06:00 Creatinine 0.6 mg/dL (0.8-1.5) L 08/16/16 06:00 Estimated GFR > 60 ml/min 08/16/16 06:00 BUN/Creatinine Ratio 50.00 % 08/16/16 06:00 Glucose 136 mg/dL (75-100) H 08/16/16 06:00 POC Glucose 131 (70-105) H 08/17/16 05:50 Lactic Acid 1.00 mmol/L (0.7-2.0) 07/31/16 00:13 Calcium 7.5 mg/dL (8.4-10.2) L 08/16/16 06:00 Total Bilirubin 0.20 mg/dL (0.1-1.2) 08/15/16 04:55 AST 87 units/L (5-40) H 08/15/16 04:55 ALT 77 units/L (7-56) H 08/15/16 04:55 Alkaline Phosphatase 1075 units/L (35-129) H 08/15/16 04:55 Ammonia 49.0 umol/L (25-60) 07/31/16 00:13 Total Creatine Kinase 865 units/L (55-170) H 07/31/16 08:39 CK-MB (CK-2) 5.9 ng/mL (0.0-4.0) H 07/31/16 08:39 CK-MB (CK-2) Rel Index 0.6 (0-4) 07/31/16 08:39 Troponin T 0.011 ng/mL (0.00-0.029) 07/31/16 08:39 Total Protein 6.2 g/dL (6.3-8.2) L 08/15/16 04:55 Albumin 2.2 g/dL (3.9-5) L 08/15/16 04:55 Albumin/Globulin Ratio 0.6 % 08/15/16 04:55 TSH 1.420 mlU/mL (0.270-4.200) 08/04/16 09:50 CSF Appearance Clear 08/04/16 11:54 CSF Color Colorless 08/04/16 11:54 CSF WBC 2 /mm3 (1-10) 08/04/16 11:54 CSF RBC 30 /mm3 (0-0) 08/04/16 11:54 CSF Seg Neutrophils 0 % (0-6) 08/04/16 11:54 CSF Lymphocytes % 66.7 % (40-80) 08/04/16 11:54 CSF Reactive Lymphs 0 % 08/04/16 11:54 CSF Monocytes % 33.3 % (15-45) 08/04/16 11:54 CSF Eosinophils % 0 % 08/04/16 11:54 CSF Basophils 0 % 08/04/16 11:54 CSF Pathologist Review C 08/04/16 11:54 CSF Glucose 90 mg/dL 08/04/16 11:54 CSF Total Protein 93 mg/dL 08/04/16 11:54 CSF VDRL Nonreactive (Nonreactive) 08/04/16 11:54 Salicylates < 0.3 mg/dL (2.8-20.0) L 07/31/16 00:02 Acetaminophen < 15.0 ug/mL (10.0-30.0) 07/31/16 00:02 Miscellaneous Test Flexitest 1 08/04/16 11:54 Blood Type O POSITIVE 07/30/16 23:40 MARK Antibody Screen Negative 07/30/16 23:40
[2016-08-17] MEDS ORDERED: WATER FOR IRRIG STERILE IR ONE (13:46)
[2016-08-17] MEDS ORDERED: NACL 0.9% 1000 ML 0 ML ONE (13:46)
[2016-08-17] MEDS ORDERED: AMIDATE IV ONE (13:47)
[2016-08-17] MEDS ORDERED: VERSED ONE (13:47)
[2016-08-17] MEDS ORDERED: ZEMURON IV ONE (13:47)
[2016-08-17] MEDS: LEVEMIR SUB-Q SCH (14:21)
[2016-08-17] MEDS ORDERED: DIPRIVAN 10 MG/ML IV ONE (14:33)
[2016-08-17] MEDS ORDERED: NACL 0.9% 1000 ML 1,000 ML ONE (14:34)
--- NOTE | 2016-08-17 15:10 | Anesthesia Day of Surgery ---
Anesthesia Day of Surgery - Day of Surgery Patient Examined: Yes Patient H&P Reviewed: Yes Patient is NPO: Yes
--- NOTE | 2016-08-17 15:12 | Operative Report ---
Operative Report Operative Report: OPERATIVE REPORT PRE & POST OP DX: Respiratory failure PROCEDURE: Tracheostomy SURGEON: Dr. Rory Barkley SKI BINDING FITTER AND REPAIRER: Dr. Gandhi ANESTHESIA: General and local EBL: Minimal SPECIMEN: None IMPLANTS: None FINDINGS: None COMPLICATIONS: None INDICATIONS: 76 y/o M with respiratory failure who presents for tracheostomy for intermodal dispatcher ventilator management. PROCEDURE: He was kept in the ICU and OR personel were mobilized to the bedside. General anesthesia was acheived. He was positioned in the standard fashion and neck was then prepped and draped. Prior to the incision the skin was injected with local. A 1cm incision was made over the midtrachea. The tracheal lumen was accessed with a needle. Once I verified the needle was not in the endotracheal tube a wire was advanced. Then using the Blue Rhino dilator set the tracheostomy was dilated up until I was able to advance an 8 Shiley trachestomy tube. The cuff was inflated. CO2 sensor showed good CO2 return. The tube was hooked to the ventilator with good oxygenation and ventilation. There was no bleeding from the incision. He maintained good vital signs during the procedure and without complication. Dr. Rory Barkley 08/17/2016 3:12PM
--- NOTE | 2016-08-17 15:17 | Operative Report ---
Operative Report Operative Report: OPERATIVE REPORT PRE & POST OP DX: Respiratory failure PROCEDURE: PEG tube placement SURGEON: Dr. Rory Barkley MASTER NAVAL PARACHUTIST: Dr. Gandhi ANESTHESIA: General and local EBL: Minimal SPECIMEN: None IMPLANTS: None FINDINGS: None COMPLICATIONS: None INDICATIONS: 76 y/o M with respiratory failure who presents for PEG tube for superintendent terminal enteral access. PROCEDURE: He was kept in the ICU and GI personel were mobilized to the bedside. Anesthesiology provided anesthesia. Dr. Gandhi gently advanced the endoscopy transorally into the stomach. The Dobhoff feeding tube was removed. The stomach was inflated and transilluminated through the abdominal wall. The abdomen was prepped and draped in the standard fashion. Prior to incision the skin was injected with local. A 0.5cm incision was made and an angio cath was inserted through the incision and into the stomach. A wire was placed through the angio cath and this wire was snared and pulled out of the mouth with the endoscope. The wire was attached to the PEG tube which was then pulled back through the foregut and out the abdominal wall. The end was flush with gastric mucosa at 2cm at the skin. The flange, clamp and cap were attached to the PEG tube. There was no bleeding from the incision or into the stomach at the end of the procedure. The PEG was anchored to the skin with a tegaderm. He tolerated the procedure well. Dr. Rory Barkley, 08/17/2016 3:17PM
[2016-08-17] MEDS ORDERED: NEO SYNEPHRINE ONE (15:23)
--- NOTE | 2016-08-18 07:17 | Progress Note ---
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 1. Trached and Pegged on yesterday, stable. 2. Continue Daily PSV trials and AC rest at night 3. Appreciate neuro help. Feel patient is better and they agree with trach and peg. 4. Blood sugars better with increased levemir. 5. Malar rash on skin. Derm available here. Given changes in mental state, wonder if it would be worth while to check complement levels and send double stranded DNA? neuro not back until Sunday. Will discuss with primary CCT 31 minutes. Subjective Date of service: 08/18/16 Principal diagnosis: acute respiratory failure, encephalopathy Interval history: No acute events. Had Trach and peg placed yesterday with no issues. Currently no family at bedside. Patient with erythema on forehead and cheeks. Almost looks like the malar rash seen with Lupus. Per nursing has been there but this is my first time noticing it. Objective Vital Signs - 12hr 08/17/16 08/17/16 08/17/16 19:50 19:51 20:00 Temperature 99 F Pulse Rate 95 H Pulse Rate [ 90 From Monitor] Respiratory 16 Rate Blood Pressure 143/54 O2 Sat by Pulse 99 96 Oximetry O2 Sat by Pulse Oximetry [ Assessment] 08/17/16 08/17/16 08/17/16 20:01 21:01 22:00 Temperature Pulse Rate 97 H 97 H 96 H Pulse Rate [ From Monitor] Respiratory 15 13 11 L Rate Blood Pressure 70/38 70/38 118/67 O2 Sat by Pulse 97 96 99 Oximetry O2 Sat by Pulse Oximetry [ Assessment] 08/17/16 08/17/16 08/17/16 23:01 23:52 23:56 Temperature 99.4 F Pulse Rate 109 H 100 H Pulse Rate [ From Monitor] Respiratory 16 Rate Blood Pressure 122/57 122/57 O2 Sat by Pulse 99 100 Oximetry O2 Sat by Pulse Oximetry [ Assessment] 08/18/16 08/18/16 08/18/16 00:00 01:00 02:00 Temperature Pulse Rate 101 H 103 H 100 H Pulse Rate [ 90 From Monitor] Respiratory 17 16 11 L Rate Blood Pressure 132/54 128/49 122/62 O2 Sat by Pulse 99 99 97 Oximetry O2 Sat by Pulse 96 Oximetry [ Assessment] 08/18/16 08/18/16 08/18/16 03:00 03:22 03:51 Temperature 98.7 F Pulse Rate 105 H 105 H Pulse Rate [ From Monitor] Respiratory 16 Rate Blood Pressure 119/49 119/49 O2 Sat by Pulse 96 99 Oximetry O2 Sat by Pulse Oximetry [ Assessment] 08/18/16 08/18/16 08/18/16 04:00 04:01 05:01 Temperature Pulse Rate 108 H 87 Pulse Rate [ 93 H From Monitor] Respiratory 17 18 19 Rate Blood Pressure 119/49 136/68 O2 Sat by Pulse 99 97 Oximetry O2 Sat by Pulse Oximetry [ Assessment] 08/18/16 06:00 Temperature Pulse Rate 103 H Pulse Rate [ From Monitor] Respiratory 16 Rate Blood Pressure 143/63 O2 Sat by Pulse 99 Oximetry O2 Sat by Pulse Oximetry [ Assessment] Constitutional: no acute distress, other (intubated, ) Eyes: other (pupils are equal, very slowly reactive) ENT: other (orally intubated) Neck: supple, no JVD Ascultation: Bilateral: clear, diminished breath sounds Gastrointestinal: normoactive bowel sounds, soft, non-distended Integumentary: normal Extremities: no cyanosis, no edema Neurologic: other (no changes) CBC and BMP: 08/16/16 06:00 08/16/16 06:00 ABG, PT/INR, D-dimer: ABG POC ABG pH 7.441 (7.35-7.45) 08/14/16 09:52 POC ABG pCO2 39.5 (35-45) 08/14/16 09:52 POC ABG pO2 85 (80-105) 08/14/16 09:52 POC ABG HCO3 26.9 08/14/16 09:52 POC ABG Total CO2 28 08/14/16 09:52 POC ABG O2 Sat 97 08/14/16 09:52 PT/INR, D-dimer PT 17.2 Sec. (12.2-14.9) H 08/07/16 07:30 INR 1.41 (0.87-1.13) H 08/07/16 07:30 Abnormal lab findings: Abnormal Labs 07/31/16 07/31/16 07/31/16 08:39 10:07 12:07 WBC RBC Hgb Hct MCV MCH MCHC RDW Plt Count Lymph % (Auto) [place] % (Auto) Lymph # [place] # Seg Neutrophils % Seg Neuts % (Manual) Lymphocytes % (Manual) Monocytes % (Manual) Nucleated RBC % Seg Neutrophils # Man Lymphocytes # (Manual) PT INR APTT POC ABG pH POC ABG pCO2 POC ABG pO2 Sodium Chloride Carbon Dioxide BUN Creatinine Glucose POC Glucose 205 H 188 H Calcium AST ALT Alkaline Phosphatase Total Creatine Kinase 865 H CK-MB (CK-2) 5.9 H Total Protein Albumin 07/31/16 07/31/16 07/31/16 16:19 19:58 23:53 WBC RBC Hgb Hct MCV MCH MCHC RDW Plt Count Lymph % (Auto) [place] % (Auto) Lymph # [place] # Seg Neutrophils % Seg Neuts % (Manual) Lymphocytes % (Manual) Monocytes % (Manual) Nucleated RBC % Seg Neutrophils # Man Lymphocytes # (Manual) PT INR APTT POC ABG pH POC ABG pCO2 POC ABG pO2 Sodium Chloride Carbon Dioxide BUN Creatinine Glucose POC Glucose 195 H 147 H 160 H Calcium AST ALT Alkaline Phosphatase Total Creatine Kinase CK-MB (CK-2) Total Protein Albumin 08/01/16 08/01/16 08/01/16 04:18 04:42 07:45 WBC 14.8 H RBC Hgb 10.7 L Hct 34.9 L MCV 82 L MCH 25 L MCHC 31 L RDW 19.1 H Plt Count Lymph % (Auto) [place] % (Auto) Lymph # [place] # Seg Neutrophils % Seg Neuts % (Manual) 80.0 H Lymphocytes % (Manual) 12.0 L Monocytes % (Manual) Nucleated RBC % Seg Neutrophils # Man 11.8 H Lymphocytes # (Manual) PT INR APTT POC ABG pH POC ABG pCO2 33.4 L POC ABG pO2 66 L Sodium Chloride Carbon Dioxide BUN Creatinine Glucose POC Glucose 225 H Calcium AST ALT Alkaline Phosphatase Total Creatine Kinase CK-MB (CK-2) Total Protein Albumin 08/01/16 08/01/16 08/01/16 07:45 10:09 10:59 WBC RBC Hgb Hct MCV MCH MCHC RDW Plt Count Lymph % (Auto) [place] % (Auto) Lymph # [place] # Seg Neutrophils % Seg Neuts % (Manual) Lymphocytes % (Manual) Monocytes % (Manual) Nucleated RBC % Seg Neutrophils # Man Lymphocytes # (Manual) PT INR APTT POC ABG pH POC ABG pCO2 POC ABG pO2 Sodium Chloride Carbon Dioxide BUN 29 H Creatinine Glucose 233 H POC Glucose 266 H 318 H Calcium 7.6 L AST ALT Alkaline Phosphatase Total Creatine Kinase CK-MB (CK-2) Total Protein Albumin 08/01/16 08/01/16 08/01/16 14:24 17:56 21:21 WBC RBC Hgb Hct MCV MCH MCHC RDW Plt Count Lymph % (Auto) [place] % (Auto) Lymph # [place] # Seg Neutrophils % Seg Neuts % (Manual) Lymphocytes % (Manual) Monocytes % (Manual) Nucleated RBC % Seg Neutrophils # Man Lymphocytes # (Manual) PT INR APTT POC ABG pH POC ABG pCO2 POC ABG pO2 Sodium Chloride Carbon Dioxide BUN Creatinine Glucose POC Glucose 298 H 239 H 203 H Calcium AST ALT Alkaline Phosphatase Total Creatine Kinase CK-MB (CK-2) Total Protein Albumin 08/02/16 08/02/16 08/02/16 02:05 03:55 05:38 WBC RBC Hgb Hct MCV MCH MCHC RDW Plt Count Lymph % (Auto) [place] % (Auto) Lymph # [place] # Seg Neutrophils % Seg Neuts % (Manual) Lymphocytes % (Manual) Monocytes % (Manual) Nucleated RBC % Seg Neutrophils # Man Lymphocytes # (Manual) PT INR APTT POC ABG pH 7.460 H POC ABG pCO2 31.2 L POC ABG pO2 71 L Sodium Chloride Carbon Dioxide BUN Creatinine Glucose POC Glucose 248 H 253 H Calcium AST ALT Alkaline Phosphatase Total Creatine Kinase CK-MB (CK-2) Total Protein Albumin 08/02/16 08/02/16 08/02/16 09:11 09:44 09:44 WBC RBC 3.62 L Hgb 9.4 L Hct 29.1 L MCV 80 L MCH 26 L MCHC RDW 18.7 H Plt Count Lymph % (Auto) [place] % (Auto) 9.2 H Lymph # [place] # 1.0 H Seg Neutrophils % 72.0 H Seg Neuts % (Manual) Lymphocytes % (Manual) Monocytes % (Manual) Nucleated RBC % Seg Neutrophils # Man Lymphocytes # (Manual) PT INR APTT POC ABG pH POC ABG pCO2 POC ABG pO2 Sodium 135 L Chloride Carbon Dioxide 21 L BUN 42 H Creatinine Glucose 248 H POC Glucose 306 H Calcium 7.6 L AST ALT Alkaline Phosphatase Total Creatine Kinase CK-MB (CK-2) Total Protein Albumin 08/02/16 08/02/16 08/02/16 15:53 17:33 21:39 WBC RBC Hgb Hct MCV MCH MCHC RDW Plt Count Lymph % (Auto) [place] % (Auto) Lymph # [place] # Seg Neutrophils % Seg Neuts % (Manual) Lymphocytes % (Manual) Monocytes % (Manual) Nucleated RBC % Seg Neutrophils # Man Lymphocytes # (Manual) PT INR APTT POC ABG pH POC ABG pCO2 POC ABG pO2 Sodium Chloride Carbon Dioxide BUN Creatinine Glucose POC Glucose 205 H 250 H 282 H Calcium AST ALT Alkaline Phosphatase Total Creatine Kinase CK-MB (CK-2) Total Protein Albumin 08/03/16 08/03/16 08/03/16 02:28 05:47 07:05 WBC RBC 3.32 L Hgb 8.4 L Hct 26.5 L MCV 80 L MCH 25 L MCHC RDW 18.7 H Plt Count 112 L Lymph % (Auto) 12.5 L [place] % (Auto) 10.2 H Lymph # 1.0 L [place] # Seg Neutrophils % 75.9 H Seg Neuts % (Manual) Lymphocytes % (Manual) Monocytes % (Manual) Nucleated RBC % Seg Neutrophils # Man Lymphocytes # (Manual) PT INR APTT POC ABG pH POC ABG pCO2 POC ABG pO2 Sodium Chloride Carbon Dioxide BUN Creatinine Glucose POC Glucose 317 H 253 H Calcium AST ALT Alkaline Phosphatase Total Creatine Kinase CK-MB (CK-2) Total Protein Albumin 08/03/16 08/03/16 08/03/16 07:05 09:50 14:07 WBC RBC Hgb Hct MCV MCH MCHC RDW Plt Count Lymph % (Auto) [place] % (Auto) Lymph # [place] # Seg Neutrophils % Seg Neuts % (Manual) Lymphocytes % (Manual) Monocytes % (Manual) Nucleated RBC % Seg Neutrophils # Man Lymphocytes # (Manual) PT INR APTT POC ABG pH POC ABG pCO2 POC ABG pO2 Sodium 132 L Chloride Carbon Dioxide 20 L BUN 42 H Creatinine Glucose 243 H POC Glucose 332 H 345 H Calcium 6.8 L AST ALT Alkaline Phosphatase Total Creatine Kinase CK-MB (CK-2) Total Protein Albumin 08/03/16 08/03/16 08/04/16 17:38 21:36 02:18 WBC RBC Hgb Hct MCV MCH MCHC RDW Plt Count Lymph % (Auto) [place] % (Auto) Lymph # [place] # Seg Neutrophils % Seg Neuts % (Manual) Lymphocytes % (Manual) Monocytes % (Manual) Nucleated RBC % Seg Neutrophils # Man Lymphocytes # (Manual) PT INR APTT POC ABG pH POC ABG pCO2 POC ABG pO2 Sodium Chloride Carbon Dioxide BUN Creatinine Glucose POC Glucose 262 H 260 H 256 H Calcium AST ALT Alkaline Phosphatase Total Creatine Kinase CK-MB (CK-2) Total Protein Albumin 08/04/16 08/04/16 08/04/16 05:41 06:00 10:20 WBC RBC Hgb Hct MCV MCH MCHC RDW Plt Count Lymph % (Auto) [place] % (Auto) Lymph # [place] # Seg Neutrophils % Seg Neuts % (Manual) Lymphocytes % (Manual) Monocytes % (Manual) Nucleated RBC % Seg Neutrophils # Man Lymphocytes # (Manual) PT INR APTT POC ABG pH POC ABG pCO2 POC ABG pO2 Sodium Chloride Carbon Dioxide BUN 34 H Creatinine 0.7 L Glucose 237 H POC Glucose 265 H 266 H Calcium 7.9 L D AST ALT Alkaline Phosphatase Total Creatine Kinase CK-MB (CK-2) Total Protein Albumin 08/04/16 08/04/16 08/04/16 14:20 17:31 21:52 WBC RBC Hgb Hct MCV MCH MCHC RDW Plt Count Lymph % (Auto) [place] % (Auto) Lymph # [place] # Seg Neutrophils % Seg Neuts % (Manual) Lymphocytes % (Manual) Monocytes % (Manual) Nucleated RBC % Seg Neutrophils # Man Lymphocytes # (Manual) PT INR APTT POC ABG pH POC ABG pCO2 POC ABG pO2 Sodium Chloride Carbon Dioxide BUN Creatinine Glucose POC Glucose 302 H 337 H 340 H Calcium AST ALT Alkaline Phosphatase Total Creatine Kinase CK-MB (CK-2) Total Protein Albumin 08/05/16 08/05/16 08/05/16 01:43 05:00 05:00 WBC RBC Hgb 9.5 L Hct 30.1 L MCV 81 L MCH 26 L MCHC RDW 19.1 H Plt Count 112 L Lymph % (Auto) [place] % (Auto) Lymph # [place] # Seg Neutrophils % Seg Neuts % (Manual) Lymphocytes % (Manual) Monocytes % (Manual) Nucleated RBC % Seg Neutrophils # Man Lymphocytes # (Manual) PT INR APTT POC ABG pH POC ABG pCO2 POC ABG pO2 Sodium Chloride Carbon Dioxide BUN 27 H Creatinine 0.7 L Glucose 212 H POC Glucose 247 H Calcium 8.3 L AST 92 H ALT 81 H Alkaline Phosphatase 629 H Total Creatine Kinase CK-MB (CK-2) Total Protein 5.9 L Albumin 2.2 L 08/05/16 08/05/16 08/05/16 05:14 05:19 10:12 WBC RBC Hgb Hct MCV MCH MCHC RDW Plt Count Lymph % (Auto) [place] % (Auto) Lymph # [place] # Seg Neutrophils % Seg Neuts % (Manual) Lymphocytes % (Manual) Monocytes % (Manual) Nucleated RBC % Seg Neutrophils # Man Lymphocytes # (Manual) PT INR APTT POC ABG pH 7.469 H POC ABG pCO2 POC ABG pO2 109 H Sodium Chloride Carbon Dioxide BUN Creatinine Glucose POC Glucose 208 H 206 H Calcium AST ALT Alkaline Phosphatase Total Creatine Kinase CK-MB (CK-2) Total Protein Albumin 08/05/16 08/05/16 08/05/16 13:54 18:31 22:06 WBC RBC Hgb Hct MCV MCH MCHC RDW Plt Count Lymph % (Auto) [place] % (Auto) Lymph # [place] # Seg Neutrophils % Seg Neuts % (Manual) Lymphocytes % (Manual) Monocytes % (Manual) Nucleated RBC % Seg Neutrophils # Man Lymphocytes # (Manual) PT INR APTT POC ABG pH POC ABG pCO2 POC ABG pO2 Sodium Chloride Carbon Dioxide BUN Creatinine Glucose POC Glucose 226 H 229 H 245 H Calcium AST ALT Alkaline Phosphatase Total Creatine Kinase CK-MB (CK-2) Total Protein Albumin 08/06/16 08/06/16 08/06/16 02:03 05:31 05:42 WBC RBC Hgb Hct MCV MCH MCHC RDW Plt Count Lymph % (Auto) [place] % (Auto) Lymph # [place] # Seg Neutrophils % Seg Neuts % (Manual) Lymphocytes % (Manual) Monocytes % (Manual) Nucleated RBC % Seg Neutrophils # Man Lymphocytes # (Manual) PT INR APTT POC ABG pH POC ABG pCO2 POC ABG pO2 62 L Sodium Chloride Carbon Dioxide BUN Creatinine Glucose POC Glucose 237 H 205 H Calcium AST ALT Alkaline Phosphatase Total Creatine Kinase CK-MB (CK-2) Total Protein Albumin 08/06/16 08/06/16 08/06/16 09:36 11:30 14:23 WBC RBC Hgb Hct MCV MCH MCHC RDW Plt Count Lymph % (Auto) [place] % (Auto) Lymph # [place] # Seg Neutrophils % Seg Neuts % (Manual) Lymphocytes % (Manual) Monocytes % (Manual) Nucleated RBC % Seg Neutrophils # Man Lymphocytes # (Manual) PT 18.9 H INR 1.59 H APTT 39.7 H POC ABG pH POC ABG pCO2 POC ABG pO2 Sodium Chloride Carbon Dioxide BUN Creatinine Glucose POC Glucose 279 H 264 H Calcium AST ALT Alkaline Phosphatase Total Creatine Kinase CK-MB (CK-2) Total Protein Albumin 08/06/16 08/07/16 08/07/16 18:07 03:01 05:18 WBC RBC Hgb Hct MCV MCH MCHC RDW Plt Count Lymph % (Auto) [place] % (Auto) Lymph # [place] # Seg Neutrophils % Seg Neuts % (Manual) Lymphocytes % (Manual) Monocytes % (Manual) Nucleated RBC % Seg Neutrophils # Man Lymphocytes # (Manual) PT INR APTT POC ABG pH 7.459 H POC ABG pCO2 POC ABG pO2 Sodium Chloride Carbon Dioxide BUN Creatinine Glucose POC Glucose 176 H 172 H Calcium AST ALT Alkaline Phosphatase Total Creatine Kinase CK-MB (CK-2) Total Protein Albumin 08/07/16 08/07/16 08/07/16 05:32 07:30 07:30 WBC RBC 3.39 L Hgb 8.6 L Hct 27.2 L MCV 80 L MCH 25 L MCHC RDW 19.1 H Plt Count 136 L Lymph % (Auto) [place] % (Auto) Lymph # [place] # Seg Neutrophils % Seg Neuts % (Manual) 84.0 H Lymphocytes % (Manual) 4.0 L Monocytes % (Manual) 8.0 H Nucleated RBC % Seg Neutrophils # Man 8.2 H Lymphocytes # (Manual) 0.4 L PT 17.2 H INR 1.41 H APTT POC ABG pH POC ABG pCO2 POC ABG pO2 Sodium Chloride Carbon Dioxide BUN Creatinine Glucose POC Glucose 204 H Calcium AST ALT Alkaline Phosphatase Total Creatine Kinase CK-MB (CK-2) Total Protein Albumin 08/07/16 08/07/16 08/07/16 07:30 10:03 14:35 WBC RBC Hgb Hct MCV MCH MCHC RDW Plt Count Lymph % (Auto) [place] % (Auto) Lymph # [place] # Seg Neutrophils % Seg Neuts % (Manual) Lymphocytes % (Manual) Monocytes % (Manual) Nucleated RBC % Seg Neutrophils # Man Lymphocytes # (Manual) PT INR APTT POC ABG pH POC ABG pCO2 POC ABG pO2 Sodium Chloride Carbon Dioxide BUN 27 H Creatinine 0.7 L Glucose 201 H POC Glucose 233 H 255 H Calcium 7.9 L AST 73 H ALT 74 H Alkaline Phosphatase 595 H Total Creatine Kinase CK-MB (CK-2) Total Protein 5.1 L Albumin 1.8 L 08/07/16 08/07/16 08/08/16 16:09 22:01 01:27 WBC RBC Hgb Hct MCV MCH MCHC RDW Plt Count Lymph % (Auto) [place] % (Auto) Lymph # [place] # Seg Neutrophils % Seg Neuts % (Manual) Lymphocytes % (Manual) Monocytes % (Manual) Nucleated RBC % Seg Neutrophils # Man Lymphocytes # (Manual) PT INR APTT POC ABG pH POC ABG pCO2 POC ABG pO2 Sodium Chloride Carbon Dioxide BUN Creatinine Glucose POC Glucose 259 H 255 H 252 H Calcium AST ALT Alkaline Phosphatase Total Creatine Kinase CK-MB (CK-2) Total Protein Albumin 08/08/16 08/08/16 08/08/16 05:13 06:23 07:40 WBC RBC 3.36 L Hgb 8.5 L Hct 27.1 L MCV 81 L MCH 25 L MCHC 31 L RDW 18.8 H Plt Count 129 L Lymph % (Auto) [place] % (Auto) Lymph # [place] # Seg Neutrophils % Seg Neuts % (Manual) Lymphocytes % (Manual) Monocytes % (Manual) Nucleated RBC % 2.0 H Seg Neutrophils # Man Lymphocytes # (Manual) PT INR APTT POC ABG pH 7.460 H POC ABG pCO2 POC ABG pO2 74 L Sodium Chloride Carbon Dioxide BUN Creatinine Glucose POC Glucose 264 H Calcium AST ALT Alkaline Phosphatase Total Creatine Kinase CK-MB (CK-2) Total Protein Albumin 08/08/16 08/08/16 08/08/16 07:40 10:01 15:00 WBC RBC Hgb Hct MCV MCH MCHC RDW Plt Count Lymph % (Auto) [place] % (Auto) Lymph # [place] # Seg Neutrophils % Seg Neuts % (Manual) Lymphocytes % (Manual) Monocytes % (Manual) Nucleated RBC % Seg Neutrophils # Man Lymphocytes # (Manual) PT INR APTT POC ABG pH POC ABG pCO2 POC ABG pO2 Sodium Chloride Carbon Dioxide BUN 26 H Creatinine 0.7 L Glucose 233 H POC Glucose 271 H 275 H Calcium 7.6 L AST 77 H ALT 71 H Alkaline Phosphatase 658 H Total Creatine Kinase CK-MB (CK-2) Total Protein 5.0 L Albumin 1.6 L 08/08/16 08/08/16 08/08/16 17:28 21:32 23:53 WBC RBC Hgb Hct MCV MCH MCHC RDW Plt Count Lymph % (Auto) [place] % (Auto) Lymph # [place] # Seg Neutrophils % Seg Neuts % (Manual) Lymphocytes % (Manual) Monocytes % (Manual) Nucleated RBC % Seg Neutrophils # Man Lymphocytes # (Manual) PT INR APTT POC ABG pH POC ABG pCO2 POC ABG pO2 Sodium Chloride Carbon Dioxide BUN Creatinine Glucose POC Glucose 275 H 252 H 246 H Calcium AST ALT Alkaline Phosphatase Total Creatine Kinase CK-MB (CK-2) Total Protein Albumin 08/09/16 08/09/16 08/09/16 03:32 05:00 05:00 WBC RBC 3.34 L Hgb 8.3 L Hct 26.7 L MCV 80 L MCH 25 L MCHC 31 L RDW 18.5 H Plt Count Lymph % (Auto) [place] % (Auto) Lymph # [place] # Seg Neutrophils % Seg Neuts % (Manual) Lymphocytes % (Manual) Monocytes % (Manual) Nucleated RBC % Seg Neutrophils # Man Lymphocytes # (Manual) PT INR APTT POC ABG pH POC ABG pCO2 POC ABG pO2 Sodium Chloride Carbon Dioxide BUN 25 H Creatinine 0.5 L Glucose 230 H POC Glucose 260 H Calcium 7.6 L AST ALT Alkaline Phosphatase Total Creatine Kinase CK-MB (CK-2) Total Protein Albumin 08/09/16 08/09/16 08/09/16 06:00 10:07 14:07 WBC RBC Hgb Hct MCV MCH MCHC RDW Plt Count Lymph % (Auto) [place] % (Auto) Lymph # [place] # Seg Neutrophils % Seg Neuts % (Manual) Lymphocytes % (Manual) Monocytes % (Manual) Nucleated RBC % Seg Neutrophils # Man Lymphocytes # (Manual) PT INR APTT POC ABG pH 7.493 H POC ABG pCO2 POC ABG pO2 Sodium Chloride Carbon Dioxide BUN Creatinine Glucose POC Glucose 216 H 220 H Calcium AST ALT Alkaline Phosphatase Total Creatine Kinase CK-MB (CK-2) Total Protein Albumin 08/09/16 08/09/16 08/10/16 16:55 21:07 02:09 WBC RBC Hgb Hct MCV MCH MCHC RDW Plt Count Lymph % (Auto) [place] % (Auto) Lymph # [place] # Seg Neutrophils % Seg Neuts % (Manual) Lymphocytes % (Manual) Monocytes % (Manual) Nucleated RBC % Seg Neutrophils # Man Lymphocytes # (Manual) PT INR APTT POC ABG pH POC ABG pCO2 POC ABG pO2 Sodium Chloride Carbon Dioxide BUN Creatinine Glucose POC Glucose 242 H 235 H 228 H Calcium AST ALT Alkaline Phosphatase Total Creatine Kinase CK-MB (CK-2) Total Protein Albumin 08/10/16 08/10/16 08/10/16 05:31 09:06 13:45 WBC RBC Hgb Hct MCV MCH MCHC RDW Plt Count Lymph % (Auto) [place] % (Auto) Lymph # [place] # Seg Neutrophils % Seg Neuts % (Manual) Lymphocytes % (Manual) Monocytes % (Manual) Nucleated RBC % Seg Neutrophils # Man Lymphocytes # (Manual) PT INR APTT POC ABG pH POC ABG pCO2 POC ABG pO2 Sodium Chloride Carbon Dioxide BUN Creatinine Glucose POC Glucose 201 H 229 H 274 H Calcium AST ALT Alkaline Phosphatase Total Creatine Kinase CK-MB (CK-2) Total Protein Albumin 08/10/16 08/10/16 08/10/16 17:53 21:43 Unknown WBC RBC 3.42 L Hgb 8.6 L Hct 27.5 L MCV 80 L MCH 25 L MCHC RDW 19.1 H Plt Count Lymph % (Auto) [place] % (Auto) Lymph # [place] # Seg Neutrophils % Seg Neuts % (Manual) Lymphocytes % (Manual) Monocytes % (Manual) Nucleated RBC % Seg Neutrophils # Man Lymphocytes # (Manual) PT INR APTT POC ABG pH POC ABG pCO2 POC ABG pO2 Sodium Chloride Carbon Dioxide BUN Creatinine Glucose POC Glucose 284 H 328 H Calcium AST ALT Alkaline Phosphatase Total Creatine Kinase CK-MB (CK-2) Total Protein Albumin 08/10/16 08/11/16 08/11/16 Unknown 01:37 05:39 WBC RBC Hgb Hct MCV MCH MCHC RDW Plt Count Lymph % (Auto) [place] % (Auto) Lymph # [place] # Seg Neutrophils % Seg Neuts % (Manual) Lymphocytes % (Manual) Monocytes % (Manual) Nucleated RBC % Seg Neutrophils # Man Lymphocytes # (Manual) PT INR APTT POC ABG pH POC ABG pCO2 POC ABG pO2 Sodium Chloride Carbon Dioxide BUN 27 H Creatinine 0.6 L Glucose 211 H POC Glucose 340 H 323 H Calcium 7.8 L AST ALT Alkaline Phosphatase Total Creatine Kinase CK-MB (CK-2) Total Protein Albumin 08/11/16 08/11/16 08/11/16 09:58 15:22 17:41 WBC RBC Hgb Hct MCV MCH MCHC RDW Plt Count Lymph % (Auto) [place] % (Auto) Lymph # [place] # Seg Neutrophils % Seg Neuts % (Manual) Lymphocytes % (Manual) Monocytes % (Manual) Nucleated RBC % Seg Neutrophils # Man Lymphocytes # (Manual) PT INR APTT POC ABG pH POC ABG pCO2 POC ABG pO2 Sodium Chloride Carbon Dioxide BUN Creatinine Glucose POC Glucose 295 H 210 H 164 H Calcium AST ALT Alkaline Phosphatase Total Creatine Kinase CK-MB (CK-2) Total Protein Albumin 08/11/16 08/12/16 08/12/16 21:53 01:56 05:15 WBC RBC Hgb Hct MCV MCH MCHC RDW Plt Count Lymph % (Auto) [place] % (Auto) Lymph # [place] # Seg Neutrophils % Seg Neuts % (Manual) Lymphocytes % (Manual) Monocytes % (Manual) Nucleated RBC % Seg Neutrophils # Man Lymphocytes # (Manual) PT INR APTT POC ABG pH POC ABG pCO2 POC ABG pO2 Sodium Chloride Carbon Dioxide BUN Creatinine Glucose POC Glucose 171 H 205 H 156 H Calcium AST ALT Alkaline Phosphatase Total Creatine Kinase CK-MB (CK-2) Total Protein Albumin 08/12/16 08/12/16 08/12/16 10:10 14:33 17:53 WBC RBC Hgb Hct MCV MCH MCHC RDW Plt Count Lymph % (Auto) [place] % (Auto) Lymph # [place] # Seg Neutrophils % Seg Neuts % (Manual) Lymphocytes % (Manual) Monocytes % (Manual) Nucleated RBC % Seg Neutrophils # Man Lymphocytes # (Manual) PT INR APTT POC ABG pH POC ABG pCO2 POC ABG pO2 Sodium Chloride Carbon Dioxide BUN Creatinine Glucose POC Glucose 224 H 245 H 259 H Calcium AST ALT Alkaline Phosphatase Total Creatine Kinase CK-MB (CK-2) Total Protein Albumin 08/12/16 08/13/16 08/13/16 21:56 04:00 04:02 WBC RBC Hgb Hct MCV MCH MCHC RDW Plt Count Lymph % (Auto) [place] % (Auto) Lymph # [place] # Seg Neutrophils % Seg Neuts % (Manual) Lymphocytes % (Manual) Monocytes % (Manual) Nucleated RBC % Seg Neutrophils # Man Lymphocytes # (Manual) PT INR APTT POC ABG pH POC ABG pCO2 POC ABG pO2 Sodium 136 L Chloride 97.2 L Carbon Dioxide BUN 26 H Creatinine 0.6 L Glucose 185 H POC Glucose 229 H 202 H Calcium 7.3 L AST ALT Alkaline Phosphatase Total Creatine Kinase CK-MB (CK-2) Total Protein Albumin 08/13/16 08/13/16 08/13/16 06:47 09:53 13:40 WBC RBC Hgb Hct MCV MCH MCHC RDW Plt Count Lymph % (Auto) [place] % (Auto) Lymph # [place] # Seg Neutrophils % Seg Neuts % (Manual) Lymphocytes % (Manual) Monocytes % (Manual) Nucleated RBC % Seg Neutrophils # Man Lymphocytes # (Manual) PT INR APTT POC ABG pH POC ABG pCO2 POC ABG pO2 Sodium Chloride Carbon Dioxide BUN Creatinine Glucose POC Glucose 191 H 221 H 225 H Calcium AST ALT Alkaline Phosphatase Total Creatine Kinase CK-MB (CK-2) Total Protein Albumin 08/13/16 08/13/16 08/13/16 17:07 21:09 Unknown WBC RBC 3.53 L Hgb 8.9 L Hct 28.4 L MCV 81 L MCH 25 L MCHC 31 L RDW 19.2 H Plt Count Lymph % (Auto) [place] % (Auto) Lymph # [place] # Seg Neutrophils % Seg Neuts % (Manual) Lymphocytes % (Manual) Monocytes % (Manual) Nucleated RBC % Seg Neutrophils # Man Lymphocytes # (Manual) PT INR APTT POC ABG pH POC ABG pCO2 POC ABG pO2 Sodium Chloride Carbon Dioxide BUN Creatinine Glucose POC Glucose 232 H 166 H Calcium AST ALT Alkaline Phosphatase Total Creatine Kinase CK-MB (CK-2) Total Protein Albumin 08/14/16 08/14/16 08/14/16 01:42 05:16 08:57 WBC RBC Hgb Hct MCV MCH MCHC RDW Plt Count Lymph % (Auto) [place] % (Auto) Lymph # [place] # Seg Neutrophils % Seg Neuts % (Manual) Lymphocytes % (Manual) Monocytes % (Manual) Nucleated RBC % Seg Neutrophils # Man Lymphocytes # (Manual) PT INR APTT POC ABG pH POC ABG pCO2 POC ABG pO2 Sodium Chloride Carbon Dioxide BUN Creatinine Glucose POC Glucose 172 H 182 H 233 H Calcium AST ALT Alkaline Phosphatase Total Creatine Kinase CK-MB (CK-2) Total Protein Albumin 08/14/16 08/14/16 08/14/16 11:30 14:09 17:48 WBC RBC Hgb Hct MCV MCH MCHC RDW Plt Count Lymph % (Auto) [place] % (Auto) Lymph # [place] # Seg Neutrophils % Seg Neuts % (Manual) Lymphocytes % (Manual) Monocytes % (Manual) Nucleated RBC % Seg Neutrophils # Man Lymphocytes # (Manual) PT INR APTT POC ABG pH POC ABG pCO2 POC ABG pO2 Sodium 135 L Chloride 97.0 L Carbon Dioxide BUN 31 H Creatinine 0.7 L Glucose 271 H POC Glucose 302 H 260 H Calcium 7.4 L AST 86 H ALT 79 H Alkaline Phosphatase 1015 H Total Creatine Kinase CK-MB (CK-2) Total Protein 6.1 L Albumin 2.1 L 08/14/16 08/15/16 08/15/16 22:26 01:58 04:55 WBC RBC Hgb 9.1 L Hct 28.8 L MCV 79 L MCH 25 L MCHC RDW 19.1 H Plt Count Lymph % (Auto) [place] % (Auto) Lymph # [place] # Seg Neutrophils % Seg Neuts % (Manual) Lymphocytes % (Manual) Monocytes % (Manual) Nucleated RBC % Seg Neutrophils # Man Lymphocytes # (Manual) PT INR APTT POC ABG pH POC ABG pCO2 POC ABG pO2 Sodium Chloride Carbon Dioxide BUN Creatinine Glucose POC Glucose 188 H 200 H Calcium AST ALT Alkaline Phosphatase Total Creatine Kinase CK-MB (CK-2) Total Protein Albumin 08/15/16 08/15/16 08/15/16 04:55 09:43 13:06 WBC RBC Hgb Hct MCV MCH MCHC RDW Plt Count Lymph % (Auto) [place] % (Auto) Lymph # [place] # Seg Neutrophils % Seg Neuts % (Manual) Lymphocytes % (Manual) Monocytes % (Manual) Nucleated RBC % Seg Neutrophils # Man Lymphocytes # (Manual) PT INR APTT POC ABG pH POC ABG pCO2 POC ABG pO2 Sodium 133 L Chloride 96.2 L Carbon Dioxide BUN 35 H Creatinine 0.6 L Glucose 168 H POC Glucose 253 H 196 H Calcium 7.6 L AST 87 H ALT 77 H Alkaline Phosphatase 1075 H Total Creatine Kinase CK-MB (CK-2) Total Protein 6.2 L Albumin 2.2 L 08/15/16 08/15/16 08/16/16 17:13 21:27 02:00 WBC RBC Hgb Hct MCV MCH MCHC RDW Plt Count Lymph % (Auto) [place] % (Auto) Lymph # [place] # Seg Neutrophils % Seg Neuts % (Manual) Lymphocytes % (Manual) Monocytes % (Manual) Nucleated RBC % Seg Neutrophils # Man Lymphocytes # (Manual) PT INR APTT POC ABG pH POC ABG pCO2 POC ABG pO2 Sodium Chloride Carbon Dioxide BUN Creatinine Glucose POC Glucose 152 H 119 H 171 H Calcium AST ALT Alkaline Phosphatase Total Creatine Kinase CK-MB (CK-2) Total Protein Albumin 08/16/16 08/16/16 08/16/16 05:29 06:00 06:00 WBC 11.2 H RBC Hgb 9.6 L Hct 30.8 L MCV 79 L MCH 25 L MCHC 31 L RDW 19.2 H Plt Count Lymph % (Auto) [place] % (Auto) Lymph # [place] # Seg Neutrophils % Seg Neuts % (Manual) 83.0 H Lymphocytes % (Manual) 12.0 L Monocytes % (Manual) Nucleated RBC % Seg Neutrophils # Man 9.3 H Lymphocytes # (Manual) PT INR APTT POC ABG pH POC ABG pCO2 POC ABG pO2 Sodium Chloride Carbon Dioxide BUN 30 H Creatinine 0.6 L Glucose 136 H POC Glucose 164 H Calcium 7.5 L AST ALT Alkaline Phosphatase Total Creatine Kinase CK-MB (CK-2) Total Protein Albumin 08/16/16 08/16/16 08/16/16 09:31 13:27 17:28 WBC RBC Hgb Hct MCV MCH MCHC RDW Plt Count Lymph % (Auto) [place] % (Auto) Lymph # [place] # Seg Neutrophils % Seg Neuts % (Manual) Lymphocytes % (Manual) Monocytes % (Manual) Nucleated RBC % Seg Neutrophils # Man Lymphocytes # (Manual) PT INR APTT POC ABG pH POC ABG pCO2 POC ABG pO2 Sodium Chloride Carbon Dioxide BUN Creatinine Glucose POC Glucose 270 H 217 H 227 H Calcium AST ALT Alkaline Phosphatase Total Creatine Kinase CK-MB (CK-2) Total Protein Albumin 08/16/16 08/17/16 08/17/16 21:32 05:50 09:55 WBC RBC Hgb Hct MCV MCH MCHC RDW Plt Count Lymph % (Auto) [place] % (Auto) Lymph # [place] # Seg Neutrophils % Seg Neuts % (Manual) Lymphocytes % (Manual) Monocytes % (Manual) Nucleated RBC % Seg Neutrophils # Man Lymphocytes # (Manual) PT INR APTT POC ABG pH POC ABG pCO2 POC ABG pO2 Sodium Chloride Carbon Dioxide BUN Creatinine Glucose POC Glucose 186 H 131 H 170 H Calcium AST ALT Alkaline Phosphatase Total Creatine Kinase CK-MB (CK-2) Total Protein Albumin 08/17/16 08/17/16 08/18/16 17:21 21:56 02:02 WBC RBC Hgb Hct MCV MCH MCHC RDW Plt Count Lymph % (Auto) [place] % (Auto) Lymph # [place] # Seg Neutrophils % Seg Neuts % (Manual) Lymphocytes % (Manual) Monocytes % (Manual) Nucleated RBC % Seg Neutrophils # Man Lymphocytes # (Manual) PT INR APTT POC ABG pH POC ABG pCO2 POC ABG pO2 Sodium Chloride Carbon Dioxide BUN Creatinine Glucose POC Glucose 190 H 207 H 170 H Calcium AST ALT Alkaline Phosphatase Total Creatine Kinase CK-MB (CK-2) Total Protein Albumin 08/18/16 05:22 WBC RBC Hgb Hct MCV MCH MCHC RDW Plt Count Lymph % (Auto) [place] % (Auto) Lymph # [place] # Seg Neutrophils % Seg Neuts % (Manual) Lymphocytes % (Manual) Monocytes % (Manual) Nucleated RBC % Seg Neutrophils # Man Lymphocytes # (Manual) PT INR APTT POC ABG pH POC ABG pCO2 POC ABG pO2 Sodium Chloride Carbon Dioxide BUN Creatinine Glucose POC Glucose 173 H Calcium AST ALT Alkaline Phosphatase Total Creatine Kinase CK-MB (CK-2) Total Protein Albumin
[2016-08-18] MEDS ORDERED: NACL 0.9% 1000 ML 1,000 ML ONE (07:47)
--- NOTE | 2016-08-18 12:13 | Progress Note ---
Assessment and Plan Assessment and plan: Acute Respiratory failure - still intubated on vent, pulmonary following - Multiple failed weaning attempts -Continue daily PSV and AC rest at night. - Tracheostomy and PEG tube placement per surgery. Sepsis with PNA -pt had elevated white count on admission, tachycardia and fever -tracheal aspirate grew Pseudomonas, resistant to zosyn -Completed Meropenem. 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 Acut ischemic stroke, bilateral - likely present since admission - Continue Aspirin - neuro following Elevated LFTs - Obtained ultrasound of the abdomen which showed cholelithiasis without cholecystitis - monitor LFT Hypertension -BP controlled Diabetes mellitus type 2. -Continue Accu-Cheks and sliding scale insulin. Hyperlipidemia - cont statin BPH - monitor urine output Malar rash. As above. Prognosis guarded History Interval history: Patient is 76 year-old man with a history of hypertension, diabetes, hyperlipidemia, BPH, was brought to the emergency room because son found him on the floor unresponsive. Patient was intubated in the emergency room. MRI of brain showed bilateral acute ischemic stroke. Tracheal aspirate growing Pseudomonas Aeruginosa and Escherichia Coli. No new issues overnight. Hospitalist Physical - Constitutional Vitals: Temp Pulse Resp BP Pulse Ox 98.5 F 98 H 23 137/69 98 08/18/16 08:00 08/18/16 11:16 08/18/16 11:16 08/18/16 11:16 08/18/16 11:16 General appearance: Present: other (intubated, FiO2 30%; opens eyes briefly to voice and tactile stimuli) - EENT Eyes: Present: PERRL, EOM intact ENT: hearing intact, clear oral mucosa, dentition normal - Neck Neck: Present: supple, normal ROM - Respiratory Respiratory effort: normal Respiratory: bilateral: CTA - Cardiovascular Rhythm: regular Heart Sounds: Present: S1 & S2. Absent: gallop, rub - Extremities Extremities: no ischemia, No edema, Full ROM - Abdominal General gastrointestinal: soft, non-tender, non-distended, normal bowel sounds - Integumentary Integumentary: Present: clear, warm, dry - Neurologic Neurologic: CNII-XII intact, moves all extremities Results - Labs CBC & Chem 7: 08/16/16 06:00 08/16/16 06:00 Labs: Laboratory Last Values WBC 11.2 K/mm3 (4.5-11.0) H 08/16/16 06:00 RBC 3.88 M/mm3 (3.65-5.03) 08/16/16 06:00 Hgb 9.6 gm/dl (11.8-15.2) L 08/16/16 06:00 Hct 30.8 % (35.5-45.6) L 08/16/16 06:00 MCV 79 fl (84-94) L 08/16/16 06:00 MCH 25 pg (28-32) L 08/16/16 06:00 MCHC 31 % (32-34) L 08/16/16 06:00 RDW 19.2 % (13.2-15.2) H 08/16/16 06:00 Plt Count 228 K/mm3 (140-440) 08/16/16 06:00 Lymph % (Auto) Pumper Gager Apprentice 08/08/16 07:40 [place] % (Auto) Pumper Gager Apprentice 08/08/16 07:40 Eos % (Auto) Pumper Gager Apprentice 08/08/16 07:40 Baso % (Auto) Pumper Gager Apprentice 08/08/16 07:40 Lymph # Pumper Gager Apprentice 08/08/16 07:40 [place] # Pumper Gager Apprentice 08/08/16 07:40 Eos # Pumper Gager Apprentice 08/08/16 07:40 Baso # Pumper Gager Apprentice 08/08/16 07:40 Add Manual Diff Complete 08/16/16 06:00 Total Counted 100 08/16/16 06:00 Seg Neutrophils % Pumper Gager Apprentice 08/08/16 07:40 Seg Neuts % (Manual) 83.0 % (40.0-70.0) H 08/16/16 06:00 Band Neutrophils % 0 % 08/16/16 06:00 Lymphocytes % (Manual) 12.0 % (13.4-35.0) L 08/16/16 06:00 Reactive Lymphs % (Man) 0 % 08/16/16 06:00 Monocytes % (Manual) 5.0 % (0.0-7.3) 08/16/16 06:00 Eosinophils % (Manual) 0 % (0.0-4.3) 08/16/16 06:00 Basophils % (Manual) 0 % (0.0-1.8) 08/16/16 06:00 Metamyelocytes % 0 % 08/16/16 06:00 Myelocytes % 0 % 08/16/16 06:00 Promyelocytes % 0 % 08/16/16 06:00 Blast Cells % 0 % 08/16/16 06:00 Nucleated RBC % Not Reportable 08/16/16 06:00 Seg Neutrophils # Pumper Gager Apprentice 08/08/16 07:40 Seg Neutrophils # Man 9.3 K/mm3 (1.8-7.7) H 08/16/16 06:00 Band Neutrophils # 0.0 K/mm3 08/16/16 06:00 Lymphocytes # (Manual) 1.3 K/mm3 (1.2-5.4) 08/16/16 06:00 Abs React Lymphs (Man) 0.0 K/mm3 08/16/16 06:00 Monocytes # (Manual) 0.6 K/mm3 (0.0-0.8) 08/16/16 06:00 Eosinophils # (Manual) 0.0 K/mm3 (0.0-0.4) 08/16/16 06:00 Basophils # (Manual) 0.0 K/mm3 (0.0-0.1) 08/16/16 06:00 Metamyelocytes # 0.0 K/mm3 08/16/16 06:00 Myelocytes # 0.0 K/mm3 08/16/16 06:00 Promyelocytes # 0.0 K/mm3 08/16/16 06:00 Blast Cells # 0.0 K/mm3 08/16/16 06:00 WBC Morphology Not Reportable 08/16/16 06:00 Hypersegmented Neuts Not Reportable 08/16/16 06:00 Hyposegmented Neuts Not Reportable 08/16/16 06:00 Hypogranular Neuts Not Reportable 08/16/16 06:00 Smudge Cells Not Reportable 08/16/16 06:00 Toxic Granulation Not Reportable 08/16/16 06:00 Toxic Vacuolation Not Reportable 08/16/16 06:00 Dohle Bodies Not Reportable 08/16/16 06:00 Pelger-Huet Anomaly Not Reportable 08/16/16 06:00 Leta Rods Not Reportable 08/16/16 06:00 Platelet Estimate Consistent w auto 08/16/16 06:00 Clumped Platelets Not Reportable 08/16/16 06:00 Plt Clumps, EDTA Not Reportable 08/16/16 06:00 Large Platelets Not Reportable 08/16/16 06:00 Giant Platelets Not Reportable 08/16/16 06:00 Platelet Satelliting Not Reportable 08/16/16 06:00 Plt Morphology Comment Not Reportable 08/16/16 06:00 RBC Morphology Not Reportable 08/16/16 06:00 Dimorphic RBCs Not Reportable 08/16/16 06:00 Polychromasia Not Reportable 08/16/16 06:00 Hypochromasia 1+ 08/16/16 06:00 Poikilocytosis 1+ 08/16/16 06:00 Anisocytosis Not Reportable 08/16/16 06:00 Microcytosis Not Reportable 08/16/16 06:00 Macrocytosis Not Reportable 08/16/16 06:00 Spherocytes Not Reportable 08/16/16 06:00 Pappenheimer Bodies Not Reportable 08/16/16 06:00 Sickle Cells Not Reportable 08/16/16 06:00 Target Cells Not Reportable 08/16/16 06:00 Tear Drop Cells Rare 08/16/16 06:00 Ovalocytes Rare 08/16/16 06:00 Helmet Cells Not Reportable 08/16/16 06:[address] [place] Bodies Not Reportable 08/16/16 06:00 [place] Rings Not Reportable 08/16/16 06:00 [place] Cells Not Reportable 08/16/16 06:00 Bite Cells Not Reportable 08/16/16 06:00 Crenated Cell Not Reportable 08/16/16 06:00 Elliptocytes Not Reportable 08/16/16 06:00 Acanthocytes (Spur) Not Reportable 08/16/16 06:00 Rouleaux Not Reportable 08/16/16 06:00 Hemoglobin C Crystals Not Reportable 08/16/16 06:00 Schistocytes Not Reportable 08/16/16 06:00 Malaria parasites Not Reportable 08/16/16 06:00 [place] Bodies Not Reportable 08/16/16 06:00 Hem Pathologist Commnt No 08/16/16 06:00 PT 17.2 Sec. (12.2-14.9) H 08/07/16 07:30 INR 1.41 (0.87-1.13) H 08/07/16 07:30 APTT 36.5 Sec. (24.2-36.6) 08/07/16 07:30 POC ABG pH 7.441 (7.35-7.45) 08/14/16 09:52 POC ABG pCO2 39.5 (35-45) 08/14/16 09:52 POC ABG pO2 85 (80-105) 08/14/16 09:52 POC ABG HCO3 26.9 08/14/16 09:52 POC ABG Total CO2 28 08/14/16 09:52 POC ABG O2 Sat 97 08/14/16 09:52 POC ABG Base Excess 3 08/14/16 09:52 VBG pH 7.447 (7.320-7.420) H 07/31/16 00:13 FiO2 30 % 08/14/16 09:52 Sodium 137 mmol/L (137-145) 08/16/16 06:00 Potassium 4.4 mmol/L (3.6-5.0) 08/16/16 06:00 Chloride 99.5 mmol/L (98-107) 08/16/16 06:00 Carbon Dioxide 27 mmol/L (22-30) 08/16/16 06:00 Anion Gap 15 mmol/L 08/16/16 06:00 BUN 30 mg/dL (9-20) H 08/16/16 06:00 Creatinine 0.6 mg/dL (0.8-1.5) L 08/16/16 06:00 Estimated GFR > 60 ml/min 08/16/16 06:00 BUN/Creatinine Ratio 50.00 % 08/16/16 06:00 Glucose 136 mg/dL (75-100) H 08/16/16 06:00 POC Glucose 200 (70-105) H 08/18/16 10:16 Lactic Acid 1.00 mmol/L (0.7-2.0) 07/31/16 00:13 Calcium 7.5 mg/dL (8.4-10.2) L 08/16/16 06:00 Total Bilirubin 0.20 mg/dL (0.1-1.2) 08/15/16 04:55 AST 87 units/L (5-40) H 08/15/16 04:55 ALT 77 units/L (7-56) H 08/15/16 04:55 Alkaline Phosphatase 1075 units/L (35-129) H 08/15/16 04:55 Ammonia 49.0 umol/L (25-60) 07/31/16 00:13 Total Creatine Kinase 865 units/L (55-170) H 07/31/16 08:39 CK-MB (CK-2) 5.9 ng/mL (0.0-4.0) H 07/31/16 08:39 CK-MB (CK-2) Rel Index 0.6 (0-4) 07/31/16 08:39 Troponin T 0.011 ng/mL (0.00-0.029) 07/31/16 08:39 Total Protein 6.2 g/dL (6.3-8.2) L 08/15/16 04:55 Albumin 2.2 g/dL (3.9-5) L 08/15/16 04:55 Albumin/Globulin Ratio 0.6 % 08/15/16 04:55 TSH 1.420 mlU/mL (0.270-4.200) 08/04/16 09:50 CSF Appearance Clear 08/04/16 11:54 CSF Color Colorless 08/04/16 11:54 CSF WBC 2 /mm3 (1-10) 08/04/16 11:54 CSF RBC 30 /mm3 (0-0) 08/04/16 11:54 CSF Seg Neutrophils 0 % (0-6) 08/04/16 11:54 CSF Lymphocytes % 66.7 % (40-80) 08/04/16 11:54 CSF Reactive Lymphs 0 % 08/04/16 11:54 CSF Monocytes % 33.3 % (15-45) 08/04/16 11:54 CSF Eosinophils % 0 % 08/04/16 11:54 CSF Basophils 0 % 08/04/16 11:54 CSF Pathologist Review C 08/04/16 11:54 CSF Glucose 90 mg/dL 08/04/16 11:54 CSF Total Protein 93 mg/dL 08/04/16 11:54 CSF VDRL Nonreactive (Nonreactive) 08/04/16 11:54 Salicylates < 0.3 mg/dL (2.8-20.0) L 07/31/16 00:02 Acetaminophen < 15.0 ug/mL (10.0-30.0) 07/31/16 00:02 Miscellaneous Test Flexitest 1 08/04/16 11:54 Blood Type O POSITIVE 07/30/16 23:40 MARK Antibody Screen Negative 07/30/16 23:40
[2016-08-18] MEDS: LEVEMIR SUB-Q SCH (14:00)
[2016-08-18] MEDS: PEPCID PO SCH ×2 (14:00→21:55)
[2016-08-18] MEDS: ASPIRIN PO SCH (14:00)
--- NOTE | 2016-08-18 16:42 | Progress Note ---
Subjective Date of service: 08/18/16 Narrative: Mr. Gray is sedated but arousable Neck tracheostomy in place connected to ventilator tracheostomy site has no bleeding or hematoma Abdomen nontender, gastrostomy tube in place, feedings have been started and he is tolerating it well so far impression satisfactory postoperative course from tracheostomy and gastrostomy tube placement Plan sign off and follow for any specific issues concerning the procedures- -- Objective Vital Signs - 12hr 08/18/16 08/18/16 08/18/16 05:01 06:00 07:00 Temperature Pulse Rate 87 103 H 106 H Pulse Rate [ From Monitor] Respiratory 19 16 15 Rate Blood Pressure 136/68 143/63 136/58 O2 Sat by Pulse 97 99 99 Oximetry 08/18/16 08/18/16 08/18/16 08:00 08:12 09:01 Temperature 98.5 F Pulse Rate 100 H 96 H 113 H Pulse Rate [ 111 H From Monitor] Respiratory 12 21 22 Rate Blood Pressure 156/77 156/77 143/61 O2 Sat by Pulse 98 97 97 Oximetry 08/18/16 08/18/16 08/18/16 10:00 11:00 11:16 Temperature Pulse Rate 100 H 97 H 98 H Pulse Rate [ From Monitor] Respiratory 21 21 23 Rate Blood Pressure 132/68 137/69 137/69 O2 Sat by Pulse 97 97 98 Oximetry 08/18/16 08/18/16 08/18/16 12:00 13:00 14:00 Temperature 99.6 F Pulse Rate 111 H 96 H 97 H Pulse Rate [ 104 H From Monitor] Respiratory 16 22 21 Rate Blood Pressure 135/78 148/70 145/69 O2 Sat by Pulse 96 96 95 Oximetry 08/18/16 08/18/16 14:05 15:00 Temperature Pulse Rate 109 H 102 H Pulse Rate [ From Monitor] Respiratory 20 16 Rate Blood Pressure 148/70 139/70 O2 Sat by Pulse 99 94 Oximetry - Labs 08/16/16 06:00 08/16/16 06:00
[2016-08-19 09:18] LABS: Hemoglobin 10.1 gm/dl (11.8-15.2)
[2016-08-19 09:38] LABS: Anion Gap 19 mmol/L; BUN/Creatinine Ratio 36.25; Blood Urea Nitrogen 29 mg/dL (9-20); Calcium 7.9 mg/dL (8.4-10.2); Carbon Dioxide 21 mmol/L (22-30); Chloride 101.1 mmol/L (98-107); Glucose 287 mg/dL (75-100); Potassium 5.2 mmol/L (3.6-5.0); Sodium 136 mmol/L (137-145)
[2016-08-19 09:59] LABS: Eosinophils % (Auto) 1.8 % (0.0-4.3); Hematocrit 32.4 % (35.5-45.6); Mean Corpuscular HGB Conc 31 % (32-34); Mean Corpuscular Volume 80 fl (84-94); Red Blood Count 4.04 M/mm3 (3.65-5.03); Red Cell Distribution Width 19.6 % (13.2-15.2); White Blood Count 14.2 K/mm3 (4.5-11.0)
[2016-08-19] MEDS ORDERED: WATER FOR INJ (PF) IV SCH (10:00)
[2016-08-19] MEDS ORDERED: CATHFLO IV ONE (10:00)
[2016-08-19 10:01] LABS: Mean Corpuscular Hemoglobin 25 pg (28-32)
[2016-08-19] MEDS: PEPCID PO SCH ×2 (10:06→21:55)
[2016-08-19] MEDS: ASPIRIN PO SCH (10:06)
[2016-08-19] MEDS: LEVEMIR SUB-Q SCH (10:06)
--- NOTE | 2016-08-19 10:40 | Progress Note ---
Assessment and Plan Assessment and plan: Acute Respiratory failure - still intubated on vent, pulmonary following - Multiple failed weaning attempts -Continue daily PSV and AC rest at night. - Tracheostomy and PEG tube placement completed and patient tolerating well. Sepsis with PNA -pt had elevated white count on admission, tachycardia and fever -tracheal aspirate grew Pseudomonas, resistant to zosyn -Completed Meropenem. 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 Acut ischemic stroke, bilateral - likely present since admission - Continue Aspirin - neuro following Elevated LFTs - Obtained ultrasound of the abdomen which showed cholelithiasis without cholecystitis - monitor LFT Hypertension -BP controlled Diabetes mellitus type 2. -Continue Accu-Cheks and sliding scale insulin. Hyperlipidemia - cont statin BPH - monitor urine output Malar rash. As above. Prognosis guarded History Interval history: Patient is 76 year-old man with a history of hypertension, diabetes, hyperlipidemia, BPH, was brought to the emergency room because son found him on the floor unresponsive. Patient was intubated in the emergency room. MRI of brain showed bilateral acute ischemic stroke. Tracheal aspirate growing Pseudomonas Aeruginosa and Escherichia Coli. No new issues overnight. Hospitalist Physical - Constitutional Vitals: Temp Pulse Resp BP Pulse Ox 99.3 F 103 H 15 145/71 97 08/19/16 08:00 08/19/16 10:01 08/19/16 10:01 08/19/16 10:01 08/19/16 10:01 General appearance: Present: other (intubated, FiO2 30%; opens eyes briefly to voice and tactile stimuli) - EENT Eyes: Present: PERRL, EOM intact ENT: hearing intact, clear oral mucosa, dentition normal - Neck Neck: Present: supple, normal ROM - Respiratory Respiratory effort: normal Respiratory: bilateral: CTA - Cardiovascular Rhythm: regular Heart Sounds: Present: S1 & S2. Absent: gallop, rub - Extremities Extremities: no ischemia, No edema, Full ROM - Abdominal General gastrointestinal: soft, non-tender, non-distended, normal bowel sounds - Integumentary Integumentary: Present: clear, warm, dry - Neurologic Neurologic: CNII-XII intact, moves all extremities Results - Labs CBC & Chem 7: 08/19/16 08:51 08/19/16 08:51 Labs: Laboratory Last Values WBC 14.2 K/mm3 (4.5-11.0) H 08/19/16 08:51 RBC 4.04 M/mm3 (3.65-5.03) 08/19/16 08:51 Hgb 10.1 gm/dl (11.8-15.2) L 08/19/16 08:51 Hct 32.4 % (35.5-45.6) L 08/19/16 08:51 MCV 80 fl (84-94) L 08/19/16 08:51 MCH 25 pg (28-32) L 08/19/16 08:51 MCHC 31 % (32-34) L 08/19/16 08:51 RDW 19.6 % (13.2-15.2) H 08/19/16 08:51 Plt Count 228 K/mm3 (140-440) 08/16/16 06:00 Lymph % (Auto) Rig Superintendent 08/08/16 07:40 [place] % (Auto) 13.2 % (0.0-7.3) H 08/19/16 08:51 Eos % (Auto) 1.8 % (0.0-4.3) 08/19/16 08:51 Baso % (Auto) Rig Superintendent 08/08/16 07:40 Lymph # Rig Superintendent 08/08/16 07:40 [place] # 1.9 K/mm3 (0.0-0.8) H 08/19/16 08:51 Eos # 0.3 K/mm3 (0.0-0.4) 08/19/16 08:51 Baso # 0.1 K/mm3 (0.0-0.1) 08/19/16 08:51 Add Manual Diff Complete 08/16/16 06:00 Total Counted 100 08/16/16 06:00 Seg Neutrophils % 63.3 % (40.0-70.0) 08/19/16 08:51 Seg Neuts % (Manual) 83.0 % (40.0-70.0) H 08/16/16 06:00 Band Neutrophils % 0 % 08/16/16 06:00 Lymphocytes % (Manual) 12.0 % (13.4-35.0) L 08/16/16 06:00 Reactive Lymphs % (Man) 0 % 08/16/16 06:00 Monocytes % (Manual) 5.0 % (0.0-7.3) 08/16/16 06:00 Eosinophils % (Manual) 0 % (0.0-4.3) 08/16/16 06:00 Basophils % (Manual) 0 % (0.0-1.8) 08/16/16 06:00 Metamyelocytes % 0 % 08/16/16 06:00 Myelocytes % 0 % 08/16/16 06:00 Promyelocytes % 0 % 08/16/16 06:00 Blast Cells % 0 % 08/16/16 06:00 Nucleated RBC % Not Reportable 08/16/16 06:00 Seg Neutrophils # 9.0 K/mm3 (1.8-7.7) H 08/19/16 08:51 Seg Neutrophils # Man 9.3 K/mm3 (1.8-7.7) H 08/16/16 06:00 Band Neutrophils # 0.0 K/mm3 08/16/16 06:00 Lymphocytes # (Manual) 1.3 K/mm3 (1.2-5.4) 08/16/16 06:00 Abs React Lymphs (Man) 0.0 K/mm3 08/16/16 06:00 Monocytes # (Manual) 0.6 K/mm3 (0.0-0.8) 08/16/16 06:00 Eosinophils # (Manual) 0.0 K/mm3 (0.0-0.4) 08/16/16 06:00 Basophils # (Manual) 0.0 K/mm3 (0.0-0.1) 08/16/16 06:00 Metamyelocytes # 0.0 K/mm3 08/16/16 06:00 Myelocytes # 0.0 K/mm3 08/16/16 06:00 Promyelocytes # 0.0 K/mm3 08/16/16 06:00 Blast Cells # 0.0 K/mm3 08/16/16 06:00 WBC Morphology Not Reportable 08/16/16 06:00 Hypersegmented Neuts Not Reportable 08/16/16 06:00 Hyposegmented Neuts Not Reportable 08/16/16 06:00 Hypogranular Neuts Not Reportable 08/16/16 06:00 Smudge Cells Not Reportable 08/16/16 06:00 Toxic Granulation Not Reportable 08/16/16 06:00 Toxic Vacuolation Not Reportable 08/16/16 06:00 Dohle Bodies Not Reportable 08/16/16 06:00 [place]-Huet Anomaly Not Reportable 08/16/16 06:00 Leta Rods Not Reportable 08/16/16 06:00 Platelet Estimate Consistent w auto 08/16/16 06:00 Clumped Platelets Not Reportable 08/16/16 06:00 Plt Clumps, EDTA Not Reportable 08/16/16 06:00 Large Platelets Not Reportable 08/16/16 06:00 Giant Platelets Not Reportable 08/16/16 06:00 Platelet Satelliting Not Reportable 08/16/16 06:00 Plt Morphology Comment Not Reportable 08/16/16 06:00 RBC Morphology Not Reportable 08/16/16 06:00 Dimorphic RBCs Not Reportable 08/16/16 06:00 Polychromasia Not Reportable 08/16/16 06:00 Hypochromasia 1+ 08/16/16 06:00 Poikilocytosis 1+ 08/16/16 06:00 Anisocytosis Not Reportable 08/16/16 06:00 Microcytosis Not Reportable 08/16/16 06:00 Macrocytosis Not Reportable 08/16/16 06:00 Spherocytes Not Reportable 08/16/16 06:00 Pappenheimer Bodies Not Reportable 08/16/16 06:00 Sickle Cells Not Reportable 08/16/16 06:00 Target Cells Not Reportable 08/16/16 06:00 Tear Drop Cells Rare 08/16/16 06:00 Ovalocytes Rare 08/16/16 06:00 Helmet Cells Not Reportable 08/16/16 06:00 [place] Bodies Not Reportable 08/16/16 06:00 [place] Rings Not Reportable 08/16/16 06:00 [place] Cells Not Reportable 08/16/16 06:00 Bite Cells Not Reportable 08/16/16 06:00 Crenated Cell Not Reportable 08/16/16 06:00 Elliptocytes Not Reportable 08/16/16 06:00 Acanthocytes (Spur) Not Reportable 08/16/16 06:00 Rouleaux Not Reportable 08/16/16 06:00 Hemoglobin C Crystals Not Reportable 08/16/16 06:00 Schistocytes Not Reportable 08/16/16 06:00 Malaria parasites Not Reportable 08/16/16 06:00 [place] Bodies Not Reportable 08/16/16 06:00 Hem Pathologist Commnt No 08/16/16 06:00 PT 17.2 Sec. (12.2-14.9) H 08/07/16 07:30 INR 1.41 (0.87-1.13) H 08/07/16 07:30 APTT 36.5 Sec. (24.2-36.6) 08/07/16 07:30 POC ABG pH 7.441 (7.35-7.45) 08/14/16 09:52 POC ABG pCO2 39.5 (35-45) 08/14/16 09:52 POC ABG pO2 85 (80-105) 08/14/16 09:52 POC ABG HCO3 26.9 08/14/16 09:52 POC ABG Total CO2 28 08/14/16 09:52 POC ABG O2 Sat 97 08/14/16 09:52 POC ABG Base Excess 3 08/14/16 09:52 VBG pH 7.447 (7.320-7.420) H 07/31/16 00:13 FiO2 30 % 08/14/16 09:52 Sodium 136 mmol/L (137-145) L 08/19/16 08:51 Potassium 5.2 mmol/L (3.6-5.0) H 08/19/16 08:51 Chloride 101.1 mmol/L (98-107) 08/19/16 08:51 Carbon Dioxide 21 mmol/L (22-30) L 08/19/16 08:51 Anion Gap 19 mmol/L 08/19/16 08:51 BUN 29 mg/dL (9-20) H 08/19/16 08:51 Creatinine 0.8 mg/dL (0.8-1.5) 08/19/16 08:51 Estimated GFR > 60 ml/min 08/19/16 08:51 BUN/Creatinine Ratio 36.25 % 08/19/16 08:51 Glucose 287 mg/dL (75-100) H 08/19/16 08:51 POC Glucose 313 (70-105) H 08/19/16 09:51 Lactic Acid 1.00 mmol/L (0.7-2.0) 07/31/16 00:13 Calcium 7.9 mg/dL (8.4-10.2) L 08/19/16 08:51 Total Bilirubin 0.20 mg/dL (0.1-1.2) 08/15/16 04:55 AST 87 units/L (5-40) H 08/15/16 04:55 ALT 77 units/L (7-56) H 08/15/16 04:55 Alkaline Phosphatase 1075 units/L (35-129) H 08/15/16 04:55 Ammonia 49.0 umol/L (25-60) 07/31/16 00:13 Total Creatine Kinase 865 units/L (55-170) H 07/31/16 08:39 CK-MB (CK-2) 5.9 ng/mL (0.0-4.0) H 07/31/16 08:39 CK-MB (CK-2) Rel Index 0.6 (0-4) 07/31/16 08:39 Troponin T 0.011 ng/mL (0.00-0.029) 07/31/16 08:39 Total Protein 6.2 g/dL (6.3-8.2) L 08/15/16 04:55 Albumin 2.2 g/dL (3.9-5) L 08/15/16 04:55 Albumin/Globulin Ratio 0.6 % 08/15/16 04:55 TSH 1.420 mlU/mL (0.270-4.200) 08/04/16 09:50 CSF Appearance Clear 08/04/16 11:54 CSF Color Colorless 08/04/16 11:54 CSF WBC 2 /mm3 (1-10) 08/04/16 11:54 CSF RBC 30 /mm3 (0-0) 08/04/16 11:54 CSF Seg Neutrophils 0 % (0-6) 08/04/16 11:54 CSF Lymphocytes % 66.7 % (40-80) 08/04/16 11:54 CSF Reactive Lymphs 0 % 08/04/16 11:54 CSF Monocytes % 33.3 % (15-45) 08/04/16 11:54 CSF Eosinophils % 0 % 08/04/16 11:54 CSF Basophils 0 % 08/04/16 11:54 CSF Pathologist Review C 08/04/16 11:54 CSF Glucose 90 mg/dL 08/04/16 11:54 CSF Total Protein 93 mg/dL 08/04/16 11:54 CSF VDRL Nonreactive (Nonreactive) 08/04/16 11:54 Salicylates < 0.3 mg/dL (2.8-20.0) L 07/31/16 00:02 Acetaminophen < 15.0 ug/mL (10.0-30.0) 07/31/16 00:02 Miscellaneous Test Flexitest 1 08/04/16 11:54 Blood Type O POSITIVE 07/30/16 23:40 MARK Antibody Screen Negative 07/30/16 23:40
--- NOTE | 2016-08-19 13:43 | Progress Note ---
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 1. Trached and Pegged, stable. 2. Continue Daily PSV trials and AC rest at night 3. Appreciate neuro help. Feel patient is better and they agree with trach and peg. 4. Blood sugars better with increased levemir. 5. Malar rash on skin. Derm available here. Given changes in mental state, wonder if it would be worth while to check complement levels and send double stranded DNA? neuro not back until Sunday. Will discuss with primary CCT 31 minutes. Subjective Date of service: 08/19/16 Principal diagnosis: acute respiratory failure, encephalopathy Interval history: No acute events. Only tolerated PSV for 2 hours this am. Brother at bedside. Objective Vital Signs - 12hr 08/19/16 08/19/16 08/19/16 02:00 03:00 04:00 Temperature 99.6 F Pulse Rate 102 H 95 H 104 H Pulse Rate [ From Monitor] Respiratory 18 17 21 Rate Blood Pressure 132/65 139/55 133/60 O2 Sat by Pulse 99 98 97 Oximetry O2 Sat by Pulse Oximetry [ Assessment] 08/19/16 08/19/16 08/19/16 04:10 05:01 06:00 Temperature Pulse Rate 104 H 103 H 108 H Pulse Rate [ From Monitor] Respiratory 21 24 Rate Blood Pressure 133/60 133/60 119/65 O2 Sat by Pulse 107 H 98 97 Oximetry O2 Sat by Pulse Oximetry [ Assessment] 08/19/16 08/19/16 08/19/16 07:00 07:44 07:47 Temperature Pulse Rate 94 H 93 H 90 Pulse Rate [ From Monitor] Respiratory 19 17 Rate Blood Pressure 126/55 126/55 126/55 O2 Sat by Pulse 97 93 99 Oximetry O2 Sat by Pulse Oximetry [ Assessment] 08/19/16 08/19/16 08/19/16 07:50 07:58 08:00 Temperature 99.3 F Pulse Rate 106 H Pulse Rate [ 109 H From Monitor] Respiratory 20 Rate Blood Pressure 145/71 O2 Sat by Pulse 97 98 Oximetry O2 Sat by Pulse 100 Oximetry [ Assessment] 08/19/16 08/19/16 08/19/16 09:01 10:00 10:01 Temperature Pulse Rate 100 H 97 H 103 H Pulse Rate [ From Monitor] Respiratory 14 15 Rate Blood Pressure 145/71 145/71 O2 Sat by Pulse 97 97 Oximetry O2 Sat by Pulse Oximetry [ Assessment] 08/19/16 08/19/16 08/19/16 10:49 11:00 12:00 Temperature 99.0 F Pulse Rate 103 H 108 H 86 Pulse Rate [ From Monitor] Respiratory 21 17 Rate Blood Pressure 124/64 125/53 123/53 O2 Sat by Pulse 98 95 95 Oximetry O2 Sat by Pulse Oximetry [ Assessment] Constitutional: no acute distress, other (trached) Eyes: other (pupils are equal, very slowly reactive) ENT: other (trached) Neck: supple, no JVD Ascultation: Bilateral: clear, diminished breath sounds Gastrointestinal: normoactive bowel sounds, soft, non-distended Integumentary: normal Extremities: no cyanosis, no edema Neurologic: other (no changes) CBC and BMP: 08/19/16 08:51 08/19/16 08:51 ABG, PT/INR, D-dimer: ABG POC ABG pH 7.441 (7.35-7.45) 08/14/16 09:52 POC ABG pCO2 39.5 (35-45) 08/14/16 09:52 POC ABG pO2 85 (80-105) 08/14/16 09:52 POC ABG HCO3 26.9 08/14/16 09:52 POC ABG Total CO2 28 08/14/16 09:52 POC ABG O2 Sat 97 08/14/16 09:52 PT/INR, D-dimer PT 17.2 Sec. (12.2-14.9) H 08/07/16 07:30 INR 1.41 (0.87-1.13) H 08/07/16 07:30 Abnormal lab findings: Abnormal Labs 07/31/16 07/31/16 07/31/16 08:39 10:07 12:07 WBC RBC Hgb Hct MCV MCH MCHC RDW Plt Count Lymph % (Auto) [place] % (Auto) Lymph # [place] # Seg Neutrophils % Seg Neuts % (Manual) Lymphocytes % (Manual) Monocytes % (Manual) Nucleated RBC % Seg Neutrophils # Seg Neutrophils # Man Lymphocytes # (Manual) PT INR APTT POC ABG pH POC ABG pCO2 POC ABG pO2 Sodium Potassium Chloride Carbon Dioxide BUN Creatinine Glucose POC Glucose 205 H 188 H Calcium AST ALT Alkaline Phosphatase Total Creatine Kinase 865 H CK-MB (CK-2) 5.9 H Total Protein Albumin 07/31/16 07/31/16 07/31/16 16:19 19:58 23:53 WBC RBC Hgb Hct MCV MCH MCHC RDW Plt Count Lymph % (Auto) [place] % (Auto) Lymph # [place] # Seg Neutrophils % Seg Neuts % (Manual) Lymphocytes % (Manual) Monocytes % (Manual) Nucleated RBC % Seg Neutrophils # Seg Neutrophils # Man Lymphocytes # (Manual) PT INR APTT POC ABG pH POC ABG pCO2 POC ABG pO2 Sodium Potassium Chloride Carbon Dioxide BUN Creatinine Glucose POC Glucose 195 H 147 H 160 H Calcium AST ALT Alkaline Phosphatase Total Creatine Kinase CK-MB (CK-2) Total Protein Albumin 08/01/16 08/01/16 08/01/16 04:18 04:42 07:45 WBC 14.8 H RBC Hgb 10.7 L Hct 34.9 L MCV 82 L MCH 25 L MCHC 31 L RDW 19.1 H Plt Count Lymph % (Auto) [place] % (Auto) Lymph # [place] # Seg Neutrophils % Seg Neuts % (Manual) 80.0 H Lymphocytes % (Manual) 12.0 L Monocytes % (Manual) Nucleated RBC % Seg Neutrophils # Seg Neutrophils # Man 11.8 H Lymphocytes # (Manual) PT INR APTT POC ABG pH POC ABG pCO2 33.4 L POC ABG pO2 66 L Sodium Potassium Chloride Carbon Dioxide BUN Creatinine Glucose POC Glucose 225 H Calcium AST ALT Alkaline Phosphatase Total Creatine Kinase CK-MB (CK-2) Total Protein Albumin 08/01/16 08/01/16 08/01/16 07:45 10:09 10:59 WBC RBC Hgb Hct MCV MCH MCHC RDW Plt Count Lymph % (Auto) [place] % (Auto) Lymph # [place] # Seg Neutrophils % Seg Neuts % (Manual) Lymphocytes % (Manual) Monocytes % (Manual) Nucleated RBC % Seg Neutrophils # Seg Neutrophils # Man Lymphocytes # (Manual) PT INR APTT POC ABG pH POC ABG pCO2 POC ABG pO2 Sodium Potassium Chloride Carbon Dioxide BUN 29 H Creatinine Glucose 233 H POC Glucose 266 H 318 H Calcium 7.6 L AST ALT Alkaline Phosphatase Total Creatine Kinase CK-MB (CK-2) Total Protein Albumin 08/01/16 08/01/16 08/01/16 14:24 17:56 21:21 WBC RBC Hgb Hct MCV MCH MCHC RDW Plt Count Lymph % (Auto) [place] % (Auto) Lymph # [place] # Seg Neutrophils % Seg Neuts % (Manual) Lymphocytes % (Manual) Monocytes % (Manual) Nucleated RBC % Seg Neutrophils # Seg Neutrophils # Man Lymphocytes # (Manual) PT INR APTT POC ABG pH POC ABG pCO2 POC ABG pO2 Sodium Potassium Chloride Carbon Dioxide BUN Creatinine Glucose POC Glucose 298 H 239 H 203 H Calcium AST ALT Alkaline Phosphatase Total Creatine Kinase CK-MB (CK-2) Total Protein Albumin 08/02/16 08/02/16 08/02/16 02:05 03:55 05:38 WBC RBC Hgb Hct MCV MCH MCHC RDW Plt Count Lymph % (Auto) [place] % (Auto) Lymph # [place] # Seg Neutrophils % Seg Neuts % (Manual) Lymphocytes % (Manual) Monocytes % (Manual) Nucleated RBC % Seg Neutrophils # Seg Neutrophils # Man Lymphocytes # (Manual) PT INR APTT POC ABG pH 7.460 H POC ABG pCO2 31.2 L POC ABG pO2 71 L Sodium Potassium Chloride Carbon Dioxide BUN Creatinine Glucose POC Glucose 248 H 253 H Calcium AST ALT Alkaline Phosphatase Total Creatine Kinase CK-MB (CK-2) Total Protein Albumin 08/02/16 08/02/16 08/02/16 09:11 09:44 09:44 WBC RBC 3.62 L Hgb 9.4 L Hct 29.1 L MCV 80 L MCH 26 L MCHC RDW 18.7 H Plt Count Lymph % (Auto) [place] % (Auto) 9.2 H Lymph # [place] # 1.0 H Seg Neutrophils % 72.0 H Seg Neuts % (Manual) Lymphocytes % (Manual) Monocytes % (Manual) Nucleated RBC % Seg Neutrophils # Seg Neutrophils # Man Lymphocytes # (Manual) PT INR APTT POC ABG pH POC ABG pCO2 POC ABG pO2 Sodium 135 L Potassium Chloride Carbon Dioxide 21 L BUN 42 H Creatinine Glucose 248 H POC Glucose 306 H Calcium 7.6 L AST ALT Alkaline Phosphatase Total Creatine Kinase CK-MB (CK-2) Total Protein Albumin 08/02/16 08/02/16 08/02/16 15:53 17:33 21:39 WBC RBC Hgb Hct MCV MCH MCHC RDW Plt Count Lymph % (Auto) [place] % (Auto) Lymph # [place] # Seg Neutrophils % Seg Neuts % (Manual) Lymphocytes % (Manual) Monocytes % (Manual) Nucleated RBC % Seg Neutrophils # Seg Neutrophils # Man Lymphocytes # (Manual) PT INR APTT POC ABG pH POC ABG pCO2 POC ABG pO2 Sodium Potassium Chloride Carbon Dioxide BUN Creatinine Glucose POC Glucose 205 H 250 H 282 H Calcium AST ALT Alkaline Phosphatase Total Creatine Kinase CK-MB (CK-2) Total Protein Albumin 08/03/16 08/03/16 08/03/16 02:28 05:47 07:05 WBC RBC 3.32 L Hgb 8.4 L Hct 26.5 L MCV 80 L MCH 25 L MCHC RDW 18.7 H Plt Count 112 L Lymph % (Auto) 12.5 L [place] % (Auto) 10.2 H Lymph # 1.0 L [place] # Seg Neutrophils % 75.9 H Seg Neuts % (Manual) Lymphocytes % (Manual) Monocytes % (Manual) Nucleated RBC % Seg Neutrophils # Seg Neutrophils # Man Lymphocytes # (Manual) PT INR APTT POC ABG pH POC ABG pCO2 POC ABG pO2 Sodium Potassium Chloride Carbon Dioxide BUN Creatinine Glucose POC Glucose 317 H 253 H Calcium AST ALT Alkaline Phosphatase Total Creatine Kinase CK-MB (CK-2) Total Protein Albumin 08/03/16 08/03/16 08/03/16 07:05 09:50 14:07 WBC RBC Hgb Hct MCV MCH MCHC RDW Plt Count Lymph % (Auto) [place] % (Auto) Lymph # [place] # Seg Neutrophils % Seg Neuts % (Manual) Lymphocytes % (Manual) Monocytes % (Manual) Nucleated RBC % Seg Neutrophils # Seg Neutrophils # Man Lymphocytes # (Manual) PT INR APTT POC ABG pH POC ABG pCO2 POC ABG pO2 Sodium 132 L Potassium Chloride Carbon Dioxide 20 L BUN 42 H Creatinine Glucose 243 H POC Glucose 332 H 345 H Calcium 6.8 L AST ALT Alkaline Phosphatase Total Creatine Kinase CK-MB (CK-2) Total Protein Albumin 08/03/16 08/03/16 08/04/16 17:38 21:36 02:18 WBC RBC Hgb Hct MCV MCH MCHC RDW Plt Count Lymph % (Auto) [place] % (Auto) Lymph # [place] # Seg Neutrophils % Seg Neuts % (Manual) Lymphocytes % (Manual) Monocytes % (Manual) Nucleated RBC % Seg Neutrophils # Seg Neutrophils # Man Lymphocytes # (Manual) PT INR APTT POC ABG pH POC ABG pCO2 POC ABG pO2 Sodium Potassium Chloride Carbon Dioxide BUN Creatinine Glucose POC Glucose 262 H 260 H 256 H Calcium AST ALT Alkaline Phosphatase Total Creatine Kinase CK-MB (CK-2) Total Protein Albumin 08/04/16 08/04/16 08/04/16 05:41 06:00 10:20 WBC RBC Hgb Hct MCV MCH MCHC RDW Plt Count Lymph % (Auto) [place] % (Auto) Lymph # [place] # Seg Neutrophils % Seg Neuts % (Manual) Lymphocytes % (Manual) Monocytes % (Manual) Nucleated RBC % Seg Neutrophils # Seg Neutrophils # Man Lymphocytes # (Manual) PT INR APTT POC ABG pH POC ABG pCO2 POC ABG pO2 Sodium Potassium Chloride Carbon Dioxide BUN 34 H Creatinine 0.7 L Glucose 237 H POC Glucose 265 H 266 H Calcium 7.9 L D AST ALT Alkaline Phosphatase Total Creatine Kinase CK-MB (CK-2) Total Protein Albumin 08/04/16 08/04/16 08/04/16 14:20 17:31 21:52 WBC RBC Hgb Hct MCV MCH MCHC RDW Plt Count Lymph % (Auto) [place] % (Auto) Lymph # [place] # Seg Neutrophils % Seg Neuts % (Manual) Lymphocytes % (Manual) Monocytes % (Manual) Nucleated RBC % Seg Neutrophils # Seg Neutrophils # Man Lymphocytes # (Manual) PT INR APTT POC ABG pH POC ABG pCO2 POC ABG pO2 Sodium Potassium Chloride Carbon Dioxide BUN Creatinine Glucose POC Glucose 302 H 337 H 340 H Calcium AST ALT Alkaline Phosphatase Total Creatine Kinase CK-MB (CK-2) Total Protein Albumin 08/05/16 08/05/16 08/05/16 01:43 05:00 05:00 WBC RBC Hgb 9.5 L Hct 30.1 L MCV 81 L MCH 26 L MCHC RDW 19.1 H Plt Count 112 L Lymph % (Auto) [place] % (Auto) Lymph # [place] # Seg Neutrophils % Seg Neuts % (Manual) Lymphocytes % (Manual) Monocytes % (Manual) Nucleated RBC % Seg Neutrophils # Seg Neutrophils # Man Lymphocytes # (Manual) PT INR APTT POC ABG pH POC ABG pCO2 POC ABG pO2 Sodium Potassium Chloride Carbon Dioxide BUN 27 H Creatinine 0.7 L Glucose 212 H POC Glucose 247 H Calcium 8.3 L AST 92 H ALT 81 H Alkaline Phosphatase 629 H Total Creatine Kinase CK-MB (CK-2) Total Protein 5.9 L Albumin 2.2 L 08/05/16 08/05/16 08/05/16 05:14 05:19 10:12 WBC RBC Hgb Hct MCV MCH MCHC RDW Plt Count Lymph % (Auto) [place] % (Auto) Lymph # [place] # Seg Neutrophils % Seg Neuts % (Manual) Lymphocytes % (Manual) Monocytes % (Manual) Nucleated RBC % Seg Neutrophils # Seg Neutrophils # Man Lymphocytes # (Manual) PT INR APTT POC ABG pH 7.469 H POC ABG pCO2 POC ABG pO2 109 H Sodium Potassium Chloride Carbon Dioxide BUN Creatinine Glucose POC Glucose 208 H 206 H Calcium AST ALT Alkaline Phosphatase Total Creatine Kinase CK-MB (CK-2) Total Protein Albumin 08/05/16 08/05/16 08/05/16 13:54 18:31 22:06 WBC RBC Hgb Hct MCV MCH MCHC RDW Plt Count Lymph % (Auto) [place] % (Auto) Lymph # [place] # Seg Neutrophils % Seg Neuts % (Manual) Lymphocytes % (Manual) Monocytes % (Manual) Nucleated RBC % Seg Neutrophils # Seg Neutrophils # Man Lymphocytes # (Manual) PT INR APTT POC ABG pH POC ABG pCO2 POC ABG pO2 Sodium Potassium Chloride Carbon Dioxide BUN Creatinine Glucose POC Glucose 226 H 229 H 245 H Calcium AST ALT Alkaline Phosphatase Total Creatine Kinase CK-MB (CK-2) Total Protein Albumin 08/06/16 08/06/16 08/06/16 02:03 05:31 05:42 WBC RBC Hgb Hct MCV MCH MCHC RDW Plt Count Lymph % (Auto) [place] % (Auto) Lymph # [place] # Seg Neutrophils % Seg Neuts % (Manual) Lymphocytes % (Manual) Monocytes % (Manual) Nucleated RBC % Seg Neutrophils # Seg Neutrophils # Man Lymphocytes # (Manual) PT INR APTT POC ABG pH POC ABG pCO2 POC ABG pO2 62 L Sodium Potassium Chloride Carbon Dioxide BUN Creatinine Glucose POC Glucose 237 H 205 H Calcium AST ALT Alkaline Phosphatase Total Creatine Kinase CK-MB (CK-2) Total Protein Albumin 08/06/16 08/06/16 08/06/16 09:36 11:30 14:23 WBC RBC Hgb Hct MCV MCH MCHC RDW Plt Count Lymph % (Auto) [place] % (Auto) Lymph # [place] # Seg Neutrophils % Seg Neuts % (Manual) Lymphocytes % (Manual) Monocytes % (Manual) Nucleated RBC % Seg Neutrophils # Seg Neutrophils # Man Lymphocytes # (Manual) PT 18.9 H INR 1.59 H APTT 39.7 H POC ABG pH POC ABG pCO2 POC ABG pO2 Sodium Potassium Chloride Carbon Dioxide BUN Creatinine Glucose POC Glucose 279 H 264 H Calcium AST ALT Alkaline Phosphatase Total Creatine Kinase CK-MB (CK-2) Total Protein Albumin 08/06/16 08/07/16 08/07/16 18:07 03:01 05:18 WBC RBC Hgb Hct MCV MCH MCHC RDW Plt Count Lymph % (Auto) [place] % (Auto) Lymph # [place] # Seg Neutrophils % Seg Neuts % (Manual) Lymphocytes % (Manual) Monocytes % (Manual) Nucleated RBC % Seg Neutrophils # Seg Neutrophils # Man Lymphocytes # (Manual) PT INR APTT POC ABG pH 7.459 H POC ABG pCO2 POC ABG pO2 Sodium Potassium Chloride Carbon Dioxide BUN Creatinine Glucose POC Glucose 176 H 172 H Calcium AST ALT Alkaline Phosphatase Total Creatine Kinase CK-MB (CK-2) Total Protein Albumin 08/07/16 08/07/16 08/07/16 05:32 07:30 07:30 WBC RBC 3.39 L Hgb 8.6 L Hct 27.2 L MCV 80 L MCH 25 L MCHC RDW 19.1 H Plt Count 136 L Lymph % (Auto) [place] % (Auto) Lymph # [place] # Seg Neutrophils % Seg Neuts % (Manual) 84.0 H Lymphocytes % (Manual) 4.0 L Monocytes % (Manual) 8.0 H Nucleated RBC % Seg Neutrophils # Seg Neutrophils # Man 8.2 H Lymphocytes # (Manual) 0.4 L PT 17.2 H INR 1.41 H APTT POC ABG pH POC ABG pCO2 POC ABG pO2 Sodium Potassium Chloride Carbon Dioxide BUN Creatinine Glucose POC Glucose 204 H Calcium AST ALT Alkaline Phosphatase Total Creatine Kinase CK-MB (CK-2) Total Protein Albumin 08/07/16 08/07/16 08/07/16 07:30 10:03 14:35 WBC RBC Hgb Hct MCV MCH MCHC RDW Plt Count Lymph % (Auto) [place] % (Auto) Lymph # [place] # Seg Neutrophils % Seg Neuts % (Manual) Lymphocytes % (Manual) Monocytes % (Manual) Nucleated RBC % Seg Neutrophils # Seg Neutrophils # Man Lymphocytes # (Manual) PT INR APTT POC ABG pH POC ABG pCO2 POC ABG pO2 Sodium Potassium Chloride Carbon Dioxide BUN 27 H Creatinine 0.7 L Glucose 201 H POC Glucose 233 H 255 H Calcium 7.9 L AST 73 H ALT 74 H Alkaline Phosphatase 595 H Total Creatine Kinase CK-MB (CK-2) Total Protein 5.1 L Albumin 1.8 L 08/07/16 08/07/16 08/08/16 16:09 22:01 01:27 WBC RBC Hgb Hct MCV MCH MCHC RDW Plt Count Lymph % (Auto) [place] % (Auto) Lymph # [place] # Seg Neutrophils % Seg Neuts % (Manual) Lymphocytes % (Manual) Monocytes % (Manual) Nucleated RBC % Seg Neutrophils # Seg Neutrophils # Man Lymphocytes # (Manual) PT INR APTT POC ABG pH POC ABG pCO2 POC ABG pO2 Sodium Potassium Chloride Carbon Dioxide BUN Creatinine Glucose POC Glucose 259 H 255 H 252 H Calcium AST ALT Alkaline Phosphatase Total Creatine Kinase CK-MB (CK-2) Total Protein Albumin 08/08/16 08/08/16 08/08/16 05:13 06:23 07:40 WBC RBC 3.36 L Hgb 8.5 L Hct 27.1 L MCV 81 L MCH 25 L MCHC 31 L RDW 18.8 H Plt Count 129 L Lymph % (Auto) [place] % (Auto) Lymph # [place] # Seg Neutrophils % Seg Neuts % (Manual) Lymphocytes % (Manual) Monocytes % (Manual) Nucleated RBC % 2.0 H Seg Neutrophils # Seg Neutrophils # Man Lymphocytes # (Manual) PT INR APTT POC ABG pH 7.460 H POC ABG pCO2 POC ABG pO2 74 L Sodium Potassium Chloride Carbon Dioxide BUN Creatinine Glucose POC Glucose 264 H Calcium AST ALT Alkaline Phosphatase Total Creatine Kinase CK-MB (CK-2) Total Protein Albumin 08/08/16 08/08/16 08/08/16 07:40 10:01 15:00 WBC RBC Hgb Hct MCV MCH MCHC RDW Plt Count Lymph % (Auto) [place] % (Auto) Lymph # [place] # Seg Neutrophils % Seg Neuts % (Manual) Lymphocytes % (Manual) Monocytes % (Manual) Nucleated RBC % Seg Neutrophils # Seg Neutrophils # Man Lymphocytes # (Manual) PT INR APTT POC ABG pH POC ABG pCO2 POC ABG pO2 Sodium Potassium Chloride Carbon Dioxide BUN 26 H Creatinine 0.7 L Glucose 233 H POC Glucose 271 H 275 H Calcium 7.6 L AST 77 H ALT 71 H Alkaline Phosphatase 658 H Total Creatine Kinase CK-MB (CK-2) Total Protein 5.0 L Albumin 1.6 L 08/08/16 08/08/16 08/08/16 17:28 21:32 23:53 WBC RBC Hgb Hct MCV MCH MCHC RDW Plt Count Lymph % (Auto) [place] % (Auto) Lymph # [place] # Seg Neutrophils % Seg Neuts % (Manual) Lymphocytes % (Manual) Monocytes % (Manual) Nucleated RBC % Seg Neutrophils # Seg Neutrophils # Man Lymphocytes # (Manual) PT INR APTT POC ABG pH POC ABG pCO2 POC ABG pO2 Sodium Potassium Chloride Carbon Dioxide BUN Creatinine Glucose POC Glucose 275 H 252 H 246 H Calcium AST ALT Alkaline Phosphatase Total Creatine Kinase CK-MB (CK-2) Total Protein Albumin 08/09/16 08/09/16 08/09/16 03:32 05:00 05:00 WBC RBC 3.34 L Hgb 8.3 L Hct 26.7 L MCV 80 L MCH 25 L MCHC 31 L RDW 18.5 H Plt Count Lymph % (Auto) [place] % (Auto) Lymph # [place] # Seg Neutrophils % Seg Neuts % (Manual) Lymphocytes % (Manual) Monocytes % (Manual) Nucleated RBC % Seg Neutrophils # Seg Neutrophils # Man Lymphocytes # (Manual) PT INR APTT POC ABG pH POC ABG pCO2 POC ABG pO2 Sodium Potassium Chloride Carbon Dioxide BUN 25 H Creatinine 0.5 L Glucose 230 H POC Glucose 260 H Calcium 7.6 L AST ALT Alkaline Phosphatase Total Creatine Kinase CK-MB (CK-2) Total Protein Albumin 08/09/16 08/09/16 08/09/16 06:00 10:07 14:07 WBC RBC Hgb Hct MCV MCH MCHC RDW Plt Count Lymph % (Auto) [place] % (Auto) Lymph # [place] # Seg Neutrophils % Seg Neuts % (Manual) Lymphocytes % (Manual) Monocytes % (Manual) Nucleated RBC % Seg Neutrophils # Seg Neutrophils # Man Lymphocytes # (Manual) PT INR APTT POC ABG pH 7.493 H POC ABG pCO2 POC ABG pO2 Sodium Potassium Chloride Carbon Dioxide BUN Creatinine Glucose POC Glucose 216 H 220 H Calcium AST ALT Alkaline Phosphatase Total Creatine Kinase CK-MB (CK-2) Total Protein Albumin 08/09/16 08/09/16 08/10/16 16:55 21:07 02:09 WBC RBC Hgb Hct MCV MCH MCHC RDW Plt Count Lymph % (Auto) [place] % (Auto) Lymph # [place] # Seg Neutrophils % Seg Neuts % (Manual) Lymphocytes % (Manual) Monocytes % (Manual) Nucleated RBC % Seg Neutrophils # Seg Neutrophils # Man Lymphocytes # (Manual) PT INR APTT POC ABG pH POC ABG pCO2 POC ABG pO2 Sodium Potassium Chloride Carbon Dioxide BUN Creatinine Glucose POC Glucose 242 H 235 H 228 H Calcium AST ALT Alkaline Phosphatase Total Creatine Kinase CK-MB (CK-2) Total Protein Albumin 08/10/16 08/10/16 08/10/16 05:31 09:06 13:45 WBC RBC Hgb Hct MCV MCH MCHC RDW Plt Count Lymph % (Auto) [place] % (Auto) Lymph # [place] # Seg Neutrophils % Seg Neuts % (Manual) Lymphocytes % (Manual) Monocytes % (Manual) Nucleated RBC % Seg Neutrophils # Seg Neutrophils # Man Lymphocytes # (Manual) PT INR APTT POC ABG pH POC ABG pCO2 POC ABG pO2 Sodium Potassium Chloride Carbon Dioxide BUN Creatinine Glucose POC Glucose 201 H 229 H 274 H Calcium AST ALT Alkaline Phosphatase Total Creatine Kinase CK-MB (CK-2) Total Protein Albumin 08/10/16 08/10/16 08/10/16 17:53 21:43 Unknown WBC RBC 3.42 L Hgb 8.6 L Hct 27.5 L MCV 80 L MCH 25 L MCHC RDW 19.1 H Plt Count Lymph % (Auto) [place] % (Auto) Lymph # [place] # Seg Neutrophils % Seg Neuts % (Manual) Lymphocytes % (Manual) Monocytes % (Manual) Nucleated RBC % Seg Neutrophils # Seg Neutrophils # Man Lymphocytes # (Manual) PT INR APTT POC ABG pH POC ABG pCO2 POC ABG pO2 Sodium Potassium Chloride Carbon Dioxide BUN Creatinine Glucose POC Glucose 284 H 328 H Calcium AST ALT Alkaline Phosphatase Total Creatine Kinase CK-MB (CK-2) Total Protein Albumin 08/10/16 08/11/16 08/11/16 Unknown 01:37 05:39 WBC RBC Hgb Hct MCV MCH MCHC RDW Plt Count Lymph % (Auto) [place] % (Auto) Lymph # [place] # Seg Neutrophils % Seg Neuts % (Manual) Lymphocytes % (Manual) Monocytes % (Manual) Nucleated RBC % Seg Neutrophils # Seg Neutrophils # Man Lymphocytes # (Manual) PT INR APTT POC ABG pH POC ABG pCO2 POC ABG pO2 Sodium Potassium Chloride Carbon Dioxide BUN 27 H Creatinine 0.6 L Glucose 211 H POC Glucose 340 H 323 H Calcium 7.8 L AST ALT Alkaline Phosphatase Total Creatine Kinase CK-MB (CK-2) Total Protein Albumin 08/11/16 08/11/16 08/11/16 09:58 15:22 17:41 WBC RBC Hgb Hct MCV MCH MCHC RDW Plt Count Lymph % (Auto) [place] % (Auto) Lymph # [place] # Seg Neutrophils % Seg Neuts % (Manual) Lymphocytes % (Manual) Monocytes % (Manual) Nucleated RBC % Seg Neutrophils # Seg Neutrophils # Man Lymphocytes # (Manual) PT INR APTT POC ABG pH POC ABG pCO2 POC ABG pO2 Sodium Potassium Chloride Carbon Dioxide BUN Creatinine Glucose POC Glucose 295 H 210 H 164 H Calcium AST ALT Alkaline Phosphatase Total Creatine Kinase CK-MB (CK-2) Total Protein Albumin 08/11/16 08/12/16 08/12/16 21:53 01:56 05:15 WBC RBC Hgb Hct MCV MCH MCHC RDW Plt Count Lymph % (Auto) [place] % (Auto) Lymph # [place] # Seg Neutrophils % Seg Neuts % (Manual) Lymphocytes % (Manual) Monocytes % (Manual) Nucleated RBC % Seg Neutrophils # Seg Neutrophils # Man Lymphocytes # (Manual) PT INR APTT POC ABG pH POC ABG pCO2 POC ABG pO2 Sodium Potassium Chloride Carbon Dioxide BUN Creatinine Glucose POC Glucose 171 H 205 H 156 H Calcium AST ALT Alkaline Phosphatase Total Creatine Kinase CK-MB (CK-2) Total Protein Albumin 08/12/16 08/12/16 08/12/16 10:10 14:33 17:53 WBC RBC Hgb Hct MCV MCH MCHC RDW Plt Count Lymph % (Auto) [place] % (Auto) Lymph # [place] # Seg Neutrophils % Seg Neuts % (Manual) Lymphocytes % (Manual) Monocytes % (Manual) Nucleated RBC % Seg Neutrophils # Seg Neutrophils # Man Lymphocytes # (Manual) PT INR APTT POC ABG pH POC ABG pCO2 POC ABG pO2 Sodium Potassium Chloride Carbon Dioxide BUN Creatinine Glucose POC Glucose 224 H 245 H 259 H Calcium AST ALT Alkaline Phosphatase Total Creatine Kinase CK-MB (CK-2) Total Protein Albumin 08/12/16 08/13/16 08/13/16 21:56 04:00 04:02 WBC RBC Hgb Hct MCV MCH MCHC RDW Plt Count Lymph % (Auto) [place] % (Auto) Lymph # [place] # Seg Neutrophils % Seg Neuts % (Manual) Lymphocytes % (Manual) Monocytes % (Manual) Nucleated RBC % Seg Neutrophils # Seg Neutrophils # Man Lymphocytes # (Manual) PT INR APTT POC ABG pH POC ABG pCO2 POC ABG pO2 Sodium 136 L Potassium Chloride 97.2 L Carbon Dioxide BUN 26 H Creatinine 0.6 L Glucose 185 H POC Glucose 229 H 202 H Calcium 7.3 L AST ALT Alkaline Phosphatase Total Creatine Kinase CK-MB (CK-2) Total Protein Albumin 08/13/16 08/13/16 08/13/16 06:47 09:53 13:40 WBC RBC Hgb Hct MCV MCH MCHC RDW Plt Count Lymph % (Auto) [place] % (Auto) Lymph # [place] # Seg Neutrophils % Seg Neuts % (Manual) Lymphocytes % (Manual) Monocytes % (Manual) Nucleated RBC % Seg Neutrophils # Seg Neutrophils # Man Lymphocytes # (Manual) PT INR APTT POC ABG pH POC ABG pCO2 POC ABG pO2 Sodium Potassium Chloride Carbon Dioxide BUN Creatinine Glucose POC Glucose 191 H 221 H 225 H Calcium AST ALT Alkaline Phosphatase Total Creatine Kinase CK-MB (CK-2) Total Protein Albumin 08/13/16 08/13/16 08/13/16 17:07 21:09 Unknown WBC RBC 3.53 L Hgb 8.9 L Hct 28.4 L MCV 81 L MCH 25 L MCHC 31 L RDW 19.2 H Plt Count Lymph % (Auto) Powell % (Auto) Lymph # Powell # Seg Neutrophils % Seg Neuts % (Manual) Lymphocytes % (Manual) Monocytes % (Manual) Nucleated RBC % Seg Neutrophils # Seg Neutrophils # Man Lymphocytes # (Manual) PT INR APTT POC ABG pH POC ABG pCO2 POC ABG pO2 Sodium Potassium Chloride Carbon Dioxide BUN Creatinine Glucose POC Glucose 232 H 166 H Calcium AST ALT Alkaline Phosphatase Total Creatine Kinase CK-MB (CK-2) Total Protein Albumin 08/14/16 08/14/16 08/14/16 01:42 05:16 08:57 WBC RBC Hgb Hct MCV MCH MCHC RDW Plt Count Lymph % (Auto) Powell % (Auto) Lymph # Powell # Seg Neutrophils % Seg Neuts % (Manual) Lymphocytes % (Manual) Monocytes % (Manual) Nucleated RBC % Seg Neutrophils # Seg Neutrophils # Man Lymphocytes # (Manual) PT INR APTT POC ABG pH POC ABG pCO2 POC ABG pO2 Sodium Potassium Chloride Carbon Dioxide BUN Creatinine Glucose POC Glucose 172 H 182 H 233 H Calcium AST ALT Alkaline Phosphatase Total Creatine Kinase CK-MB (CK-2) Total Protein Albumin 08/14/16 08/14/16 08/14/16 11:30 14:09 17:48 WBC RBC Hgb Hct MCV MCH MCHC RDW Plt Count Lymph % (Auto) [place] % (Auto) Lymph # [place] # Seg Neutrophils % Seg Neuts % (Manual) Lymphocytes % (Manual) Monocytes % (Manual) Nucleated RBC % Seg Neutrophils # Seg Neutrophils # Man Lymphocytes # (Manual) PT INR APTT POC ABG pH POC ABG pCO2 POC ABG pO2 Sodium 135 L Potassium Chloride 97.0 L Carbon Dioxide BUN 31 H Creatinine 0.7 L Glucose 271 H POC Glucose 302 H 260 H Calcium 7.4 L AST 86 H ALT 79 H Alkaline Phosphatase 1015 H Total Creatine Kinase CK-MB (CK-2) Total Protein 6.1 L Albumin 2.1 L 08/14/16 08/15/16 08/15/16 22:26 01:58 04:55 WBC RBC Hgb 9.1 L Hct 28.8 L MCV 79 L MCH 25 L MCHC RDW 19.1 H Plt Count Lymph % (Auto) [place] % (Auto) Lymph # [place] # Seg Neutrophils % Seg Neuts % (Manual) Lymphocytes % (Manual) Monocytes % (Manual) Nucleated RBC % Seg Neutrophils # Seg Neutrophils # Man Lymphocytes # (Manual) PT INR APTT POC ABG pH POC ABG pCO2 POC ABG pO2 Sodium Potassium Chloride Carbon Dioxide BUN Creatinine Glucose POC Glucose 188 H 200 H Calcium AST ALT Alkaline Phosphatase Total Creatine Kinase CK-MB (CK-2) Total Protein Albumin 08/15/16 08/15/16 08/15/16 04:55 09:43 13:06 WBC RBC Hgb Hct MCV MCH MCHC RDW Plt Count Lymph % (Auto) [place] % (Auto) Lymph # [place] # Seg Neutrophils % Seg Neuts % (Manual) Lymphocytes % (Manual) Monocytes % (Manual) Nucleated RBC % Seg Neutrophils # Seg Neutrophils # Man Lymphocytes # (Manual) PT INR APTT POC ABG pH POC ABG pCO2 POC ABG pO2 Sodium 133 L Potassium Chloride 96.2 L Carbon Dioxide BUN 35 H Creatinine 0.6 L Glucose 168 H POC Glucose 253 H 196 H Calcium 7.6 L AST 87 H ALT 77 H Alkaline Phosphatase 1075 H Total Creatine Kinase CK-MB (CK-2) Total Protein 6.2 L Albumin 2.2 L 08/15/16 08/15/16 08/16/16 17:13 21:27 02:00 WBC RBC Hgb Hct MCV MCH MCHC RDW Plt Count Lymph % (Auto) [place] % (Auto) Lymph # [place] # Seg Neutrophils % Seg Neuts % (Manual) Lymphocytes % (Manual) Monocytes % (Manual) Nucleated RBC % Seg Neutrophils # Seg Neutrophils # Man Lymphocytes # (Manual) PT INR APTT POC ABG pH POC ABG pCO2 POC ABG pO2 Sodium Potassium Chloride Carbon Dioxide BUN Creatinine Glucose POC Glucose 152 H 119 H 171 H Calcium AST ALT Alkaline Phosphatase Total Creatine Kinase CK-MB (CK-2) Total Protein Albumin 08/16/16 08/16/16 08/16/16 05:29 06:00 06:00 WBC 11.2 H RBC Hgb 9.6 L Hct 30.8 L MCV 79 L MCH 25 L MCHC 31 L RDW 19.2 H Plt Count Lymph % (Auto) [place] % (Auto) Lymph # [place] # Seg Neutrophils % Seg Neuts % (Manual) 83.0 H Lymphocytes % (Manual) 12.0 L Monocytes % (Manual) Nucleated RBC % Seg Neutrophils # Seg Neutrophils # Man 9.3 H Lymphocytes # (Manual) PT INR APTT POC ABG pH POC ABG pCO2 POC ABG pO2 Sodium Potassium Chloride Carbon Dioxide BUN 30 H Creatinine 0.6 L Glucose 136 H POC Glucose 164 H Calcium 7.5 L AST ALT Alkaline Phosphatase Total Creatine Kinase CK-MB (CK-2) Total Protein Albumin 08/16/16 08/16/16 08/16/16 09:31 13:27 17:28 WBC RBC Hgb Hct MCV MCH MCHC RDW Plt Count Lymph % (Auto) [place] % (Auto) Lymph # [place] # Seg Neutrophils % Seg Neuts % (Manual) Lymphocytes % (Manual) Monocytes % (Manual) Nucleated RBC % Seg Neutrophils # Seg Neutrophils # Man Lymphocytes # (Manual) PT INR APTT POC ABG pH POC ABG pCO2 POC ABG pO2 Sodium Potassium Chloride Carbon Dioxide BUN Creatinine Glucose POC Glucose 270 H 217 H 227 H Calcium AST ALT Alkaline Phosphatase Total Creatine Kinase CK-MB (CK-2) Total Protein Albumin 08/16/16 08/17/16 08/17/16 21:32 05:50 09:55 WBC RBC Hgb Hct MCV MCH MCHC RDW Plt Count Lymph % (Auto) [place] % (Auto) Lymph # [place] # Seg Neutrophils % Seg Neuts % (Manual) Lymphocytes % (Manual) Monocytes % (Manual) Nucleated RBC % Seg Neutrophils # Seg Neutrophils # Man Lymphocytes # (Manual) PT INR APTT POC ABG pH POC ABG pCO2 POC ABG pO2 Sodium Potassium Chloride Carbon Dioxide BUN Creatinine Glucose POC Glucose 186 H 131 H 170 H Calcium AST ALT Alkaline Phosphatase Total Creatine Kinase CK-MB (CK-2) Total Protein Albumin 08/17/16 08/17/16 08/18/16 17:21 21:56 02:02 WBC RBC Hgb Hct MCV MCH MCHC RDW Plt Count Lymph % (Auto) [place] % (Auto) Lymph # [place] # Seg Neutrophils % Seg Neuts % (Manual) Lymphocytes % (Manual) Monocytes % (Manual) Nucleated RBC % Seg Neutrophils # Seg Neutrophils # Man Lymphocytes # (Manual) PT INR APTT POC ABG pH POC ABG pCO2 POC ABG pO2 Sodium Potassium Chloride Carbon Dioxide BUN Creatinine Glucose POC Glucose 190 H 207 H 170 H Calcium AST ALT Alkaline Phosphatase Total Creatine Kinase CK-MB (CK-2) Total Protein Albumin 08/18/16 08/18/16 08/18/16 05:22 10:16 14:19 WBC RBC Hgb Hct MCV MCH MCHC RDW Plt Count Lymph % (Auto) [place] % (Auto) Lymph # [place] # Seg Neutrophils % Seg Neuts % (Manual) Lymphocytes % (Manual) Monocytes % (Manual) Nucleated RBC % Seg Neutrophils # Seg Neutrophils # Man Lymphocytes # (Manual) PT INR APTT POC ABG pH POC ABG pCO2 POC ABG pO2 Sodium Potassium Chloride Carbon Dioxide BUN Creatinine Glucose POC Glucose 173 H 200 H 215 H Calcium AST ALT Alkaline Phosphatase Total Creatine Kinase CK-MB (CK-2) Total Protein Albumin 08/18/16 08/18/16 08/19/16 18:40 21:31 01:59 WBC RBC Hgb Hct MCV MCH MCHC RDW Plt Count Lymph % (Auto) [place] % (Auto) Lymph # [place] # Seg Neutrophils % Seg Neuts % (Manual) Lymphocytes % (Manual) Monocytes % (Manual) Nucleated RBC % Seg Neutrophils # Seg Neutrophils # Man Lymphocytes # (Manual) PT INR APTT POC ABG pH POC ABG pCO2 POC ABG pO2 Sodium Potassium Chloride Carbon Dioxide BUN Creatinine Glucose POC Glucose 245 H 277 H 269 H Calcium AST ALT Alkaline Phosphatase Total Creatine Kinase CK-MB (CK-2) Total Protein Albumin 08/19/16 08/19/16 08/19/16 05:28 08:51 08:51 WBC 14.2 H RBC Hgb 10.1 L Hct 32.4 L MCV 80 L MCH 25 L MCHC 31 L RDW 19.6 H Plt Count Lymph % (Auto) [place] % (Auto) 13.2 H Lymph # [place] # 1.9 H Seg Neutrophils % Seg Neuts % (Manual) Lymphocytes % (Manual) Monocytes % (Manual) Nucleated RBC % Seg Neutrophils # 9.0 H Seg Neutrophils # Man Lymphocytes # (Manual) PT INR APTT POC ABG pH POC ABG pCO2 POC ABG pO2 Sodium 136 L Potassium 5.2 H Chloride Carbon Dioxide 21 L BUN 29 H Creatinine Glucose 287 H POC Glucose 298 H Calcium 7.9 L AST ALT Alkaline Phosphatase Total Creatine Kinase CK-MB (CK-2) Total Protein Albumin 08/19/16 09:51 WBC RBC Hgb Hct MCV MCH MCHC RDW Plt Count Lymph % (Auto) [place] % (Auto) Lymph # [place] # Seg Neutrophils % Seg Neuts % (Manual) Lymphocytes % (Manual) Monocytes % (Manual) Nucleated RBC % Seg Neutrophils # Seg Neutrophils # Man Lymphocytes # (Manual) PT INR APTT POC ABG pH POC ABG pCO2 POC ABG pO2 Sodium Potassium Chloride Carbon Dioxide BUN Creatinine Glucose POC Glucose 313 H Calcium AST ALT Alkaline Phosphatase Total Creatine Kinase CK-MB (CK-2) Total Protein Albumin
[2016-08-19 14:07] LABS: Blastocytes % (Manual) 0 %
[2016-08-19 14:08] LABS: Basophils % (Manual) 0 % (0.0-1.8)
[2016-08-19 14:10] LABS: Anisocytosis 1+
[2016-08-19 14:11] LABS: Diff Status Complete; Hypochromasia 1+; Platelet Estimate Consistent w Auto
[2016-08-19 14:19] LABS: Platelet Count 170 K/mm3 (140-440)
[2016-08-20 06:10] LABS: Hematocrit 30.8 % (35.5-45.6); Hemoglobin 9.6 gm/dl (11.8-15.2); Mean Corpuscular HGB Conc 31 % (32-34); Mean Corpuscular Volume 81 fl (84-94); Platelet Count 192 K/mm3 (140-440); Red Blood Count 3.79 M/mm3 (3.65-5.03); Red Cell Distribution Width 19.6 % (13.2-15.2); White Blood Count 11.3 K/mm3 (4.5-11.0)
[2016-08-20 06:14] LABS: Mean Corpuscular Hemoglobin 25 pg (28-32)
[2016-08-20 06:49] LABS: Anisocytosis 1+; Basophils % (Manual) 0 % (0.0-1.8); Blastocytes % (Manual) 0 %; Elliptocytes Few
[2016-08-20 06:50] LABS: Diff Status Complete; Platelet Estimate Consistent w Auto
[2016-08-20 09:09] LABS: Anion Gap 18 mmol/L; BUN/Creatinine Ratio 51.66; Blood Urea Nitrogen 31 mg/dL (9-20); Calcium 8.4 mg/dL (8.4-10.2); Carbon Dioxide 24 mmol/L (22-30); Chloride 99.4 mmol/L (98-107); Glucose 276 mg/dL (75-100); Potassium 4.8 mmol/L (3.6-5.0); Sodium 137 mmol/L (137-145)
--- NOTE | 2016-08-20 09:10 | Progress Note ---
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 1. Trached and Pegged, stable. 2. Continue Daily PSV trials and AC rest at night 3. Appreciate neuro help. Feel patient is better and they agree with trach and peg. Await their reassessment this week. 4. IMS to manage blood sugars, increasing again 5. Malar rash on skin. Derm not available here. Given changes in mental state , wonder if it would be worth while to check complement levels and send double stranded DNA? neuro not back until Sunday. Will discuss with primary 6. Stable for transfer to [facility] CCT 31 minutes. Subjective Date of service: 08/20/16 Principal diagnosis: acute respiratory failure, encephalopathy Interval history: No acute events. Had a low grate temp of 100.5 on last evening. Small bump in white count the day of the procedure, trending down since then. Objective Vital Signs - 12hr 08/19/16 08/19/16 08/19/16 22:00 23:00 23:13 Temperature Pulse Rate 100 H 97 H 99 H Pulse Rate [ From Monitor] Pulse Rate [ Right Dorsalis Pedis] Respiratory 14 15 20 Rate Blood Pressure 144/66 139/60 139/60 O2 Sat by Pulse 100 98 97 Oximetry O2 Sat by Pulse Oximetry [ Assessment] 08/19/16 08/20/16 08/20/16 23:42 00:00 00:01 Temperature 99.6 F Pulse Rate 105 H 111 H Pulse Rate [ From Monitor] Pulse Rate [ Right Dorsalis Pedis] Respiratory 21 Rate Blood Pressure 139/60 138/58 O2 Sat by Pulse 97 100 Oximetry O2 Sat by Pulse Oximetry [ Assessment] 08/20/16 08/20/16 08/20/16 00:16 01:00 02:00 Temperature Pulse Rate 101 H 98 H Pulse Rate [ From Monitor] Pulse Rate [ Right Dorsalis Pedis] Respiratory 21 19 19 Rate Blood Pressure 135/57 137/49 O2 Sat by Pulse 100 99 100 Oximetry O2 Sat by Pulse Oximetry [ Assessment] 08/20/16 08/20/16 08/20/16 03:01 04:00 04:24 Temperature 99.1 F Pulse Rate 109 H 97 H Pulse Rate [ From Monitor] Pulse Rate [ Right Dorsalis Pedis] Respiratory 15 17 13 Rate Blood Pressure 152/95 144/102 O2 Sat by Pulse 100 99 100 Oximetry O2 Sat by Pulse Oximetry [ Assessment] 08/20/16 08/20/16 08/20/16 04:36 04:39 05:00 Temperature Pulse Rate 108 H 106 H Pulse Rate [ From Monitor] Pulse Rate [ Right Dorsalis Pedis] Respiratory 12 Rate Blood Pressure 144/102 144/73 O2 Sat by Pulse 98 98 Oximetry O2 Sat by Pulse 99 Oximetry [ Assessment] 08/20/16 08/20/16 08/20/16 06:00 07:00 07:28 Temperature 99.4 F Pulse Rate 102 H 109 H Pulse Rate [ From Monitor] Pulse Rate [ Right Dorsalis Pedis] Respiratory 15 17 Rate Blood Pressure 144/74 147/72 O2 Sat by Pulse 100 97 Oximetry O2 Sat by Pulse Oximetry [ Assessment] 08/20/16 08/20/16 08/20/16 08:00 08:29 08:41 Temperature Pulse Rate 103 H 98 H 102 H Pulse Rate [ 101 H From Monitor] Pulse Rate [ 101 H Right Dorsalis Pedis] Respiratory 22 23 Rate Blood Pressure 140/78 140/78 140/78 O2 Sat by Pulse 96 94 95 Oximetry O2 Sat by Pulse Oximetry [ Assessment] Constitutional: no acute distress, other (trached) Eyes: other (pupils are equal, very slowly reactive) ENT: other (trached) Neck: supple, no JVD Ascultation: Bilateral: clear, diminished breath sounds Gastrointestinal: normoactive bowel sounds, soft, non-distended Integumentary: normal Extremities: no cyanosis, no edema Neurologic: other (no changes) CBC and BMP: 08/20/16 05:48 08/19/16 08:51 ABG, PT/INR, D-dimer: ABG POC ABG pH 7.441 (7.35-7.45) 08/14/16 09:52 POC ABG pCO2 39.5 (35-45) 08/14/16 09:52 POC ABG pO2 85 (80-105) 08/14/16 09:52 POC ABG HCO3 26.9 08/14/16 09:52 POC ABG Total CO2 28 08/14/16 09:52 POC ABG O2 Sat 97 08/14/16 09:52 PT/INR, D-dimer PT 17.2 Sec. (12.2-14.9) H 08/07/16 07:30 INR 1.41 (0.87-1.13) H 08/07/16 07:30 Abnormal lab findings: Abnormal Labs 07/31/16 07/31/16 07/31/16 08:39 10:07 12:07 WBC RBC Hgb Hct MCV MCH MCHC RDW Plt Count Lymph % (Auto) [place] % (Auto) Lymph # [place] # Seg Neutrophils % Seg Neuts % (Manual) Lymphocytes % (Manual) Monocytes % (Manual) Nucleated RBC % Seg Neutrophils # Seg Neutrophils # Man Lymphocytes # (Manual) Monocytes # (Manual) PT INR APTT POC ABG pH POC ABG pCO2 POC ABG pO2 Sodium Potassium Chloride Carbon Dioxide BUN Creatinine Glucose POC Glucose 205 H 188 H Calcium AST ALT Alkaline Phosphatase Total Creatine Kinase 865 H CK-MB (CK-2) 5.9 H Total Protein Albumin 07/31/16 07/31/16 07/31/16 16:19 19:58 23:53 WBC RBC Hgb Hct MCV MCH MCHC RDW Plt Count Lymph % (Auto) [place] % (Auto) Lymph # [place] # Seg Neutrophils % Seg Neuts % (Manual) Lymphocytes % (Manual) Monocytes % (Manual) Nucleated RBC % Seg Neutrophils # Seg Neutrophils # Man Lymphocytes # (Manual) Monocytes # (Manual) PT INR APTT POC ABG pH POC ABG pCO2 POC ABG pO2 Sodium Potassium Chloride Carbon Dioxide BUN Creatinine Glucose POC Glucose 195 H 147 H 160 H Calcium AST ALT Alkaline Phosphatase Total Creatine Kinase CK-MB (CK-2) Total Protein Albumin 08/01/16 08/01/16 08/01/16 04:18 04:42 07:45 WBC 14.8 H RBC Hgb 10.7 L Hct 34.9 L MCV 82 L MCH 25 L MCHC 31 L RDW 19.1 H Plt Count Lymph % (Auto) [place] % (Auto) Lymph # [place] # Seg Neutrophils % Seg Neuts % (Manual) 80.0 H Lymphocytes % (Manual) 12.0 L Monocytes % (Manual) Nucleated RBC % Seg Neutrophils # Seg Neutrophils # Man 11.8 H Lymphocytes # (Manual) Monocytes # (Manual) PT INR APTT POC ABG pH POC ABG pCO2 33.4 L POC ABG pO2 66 L Sodium Potassium Chloride Carbon Dioxide BUN Creatinine Glucose POC Glucose 225 H Calcium AST ALT Alkaline Phosphatase Total Creatine Kinase CK-MB (CK-2) Total Protein Albumin 08/01/16 08/01/16 08/01/16 07:45 10:09 10:59 WBC RBC Hgb Hct MCV MCH MCHC RDW Plt Count Lymph % (Auto) [place] % (Auto) Lymph # [place] # Seg Neutrophils % Seg Neuts % (Manual) Lymphocytes % (Manual) Monocytes % (Manual) Nucleated RBC % Seg Neutrophils # Seg Neutrophils # Man Lymphocytes # (Manual) Monocytes # (Manual) PT INR APTT POC ABG pH POC ABG pCO2 POC ABG pO2 Sodium Potassium Chloride Carbon Dioxide BUN 29 H Creatinine Glucose 233 H POC Glucose 266 H 318 H Calcium 7.6 L AST ALT Alkaline Phosphatase Total Creatine Kinase CK-MB (CK-2) Total Protein Albumin 08/01/16 08/01/16 08/01/16 14:24 17:56 21:21 WBC RBC Hgb Hct MCV MCH MCHC RDW Plt Count Lymph % (Auto) [place] % (Auto) Lymph # [place] # Seg Neutrophils % Seg Neuts % (Manual) Lymphocytes % (Manual) Monocytes % (Manual) Nucleated RBC % Seg Neutrophils # Seg Neutrophils # Man Lymphocytes # (Manual) Monocytes # (Manual) PT INR APTT POC ABG pH POC ABG pCO2 POC ABG pO2 Sodium Potassium Chloride Carbon Dioxide BUN Creatinine Glucose POC Glucose 298 H 239 H 203 H Calcium AST ALT Alkaline Phosphatase Total Creatine Kinase CK-MB (CK-2) Total Protein Albumin 08/02/16 08/02/16 08/02/16 02:05 03:55 05:38 WBC RBC Hgb Hct MCV MCH MCHC RDW Plt Count Lymph % (Auto) [place] % (Auto) Lymph # [place] # Seg Neutrophils % Seg Neuts % (Manual) Lymphocytes % (Manual) Monocytes % (Manual) Nucleated RBC % Seg Neutrophils # Seg Neutrophils # Man Lymphocytes # (Manual) Monocytes # (Manual) PT INR APTT POC ABG pH 7.460 H POC ABG pCO2 31.2 L POC ABG pO2 71 L Sodium Potassium Chloride Carbon Dioxide BUN Creatinine Glucose POC Glucose 248 H 253 H Calcium AST ALT Alkaline Phosphatase Total Creatine Kinase CK-MB (CK-2) Total Protein Albumin 08/02/16 08/02/16 08/02/16 09:11 09:44 09:44 WBC RBC 3.62 L Hgb 9.4 L Hct 29.1 L MCV 80 L MCH 26 L MCHC RDW 18.7 H Plt Count Lymph % (Auto) [place] % (Auto) 9.2 H Lymph # [place] # 1.0 H Seg Neutrophils % 72.0 H Seg Neuts % (Manual) Lymphocytes % (Manual) Monocytes % (Manual) Nucleated RBC % Seg Neutrophils # Seg Neutrophils # Man Lymphocytes # (Manual) Monocytes # (Manual) PT INR APTT POC ABG pH POC ABG pCO2 POC ABG pO2 Sodium 135 L Potassium Chloride Carbon Dioxide 21 L BUN 42 H Creatinine Glucose 248 H POC Glucose 306 H Calcium 7.6 L AST ALT Alkaline Phosphatase Total Creatine Kinase CK-MB (CK-2) Total Protein Albumin 08/02/16 08/02/16 08/02/16 15:53 17:33 21:39 WBC RBC Hgb Hct MCV MCH MCHC RDW Plt Count Lymph % (Auto) [place] % (Auto) Lymph # [place] # Seg Neutrophils % Seg Neuts % (Manual) Lymphocytes % (Manual) Monocytes % (Manual) Nucleated RBC % Seg Neutrophils # Seg Neutrophils # Man Lymphocytes # (Manual) Monocytes # (Manual) PT INR APTT POC ABG pH POC ABG pCO2 POC ABG pO2 Sodium Potassium Chloride Carbon Dioxide BUN Creatinine Glucose POC Glucose 205 H 250 H 282 H Calcium AST ALT Alkaline Phosphatase Total Creatine Kinase CK-MB (CK-2) Total Protein Albumin 08/03/16 08/03/16 08/03/16 02:28 05:47 07:05 WBC RBC 3.32 L Hgb 8.4 L Hct 26.5 L MCV 80 L MCH 25 L MCHC RDW 18.7 H Plt Count 112 L Lymph % (Auto) 12.5 L [place] % (Auto) 10.2 H Lymph # 1.0 L [place] # Seg Neutrophils % 75.9 H Seg Neuts % (Manual) Lymphocytes % (Manual) Monocytes % (Manual) Nucleated RBC % Seg Neutrophils # Seg Neutrophils # Man Lymphocytes # (Manual) Monocytes # (Manual) PT INR APTT POC ABG pH POC ABG pCO2 POC ABG pO2 Sodium Potassium Chloride Carbon Dioxide BUN Creatinine Glucose POC Glucose 317 H 253 H Calcium AST ALT Alkaline Phosphatase Total Creatine Kinase CK-MB (CK-2) Total Protein Albumin 08/03/16 08/03/16 08/03/16 07:05 09:50 14:07 WBC RBC Hgb Hct MCV MCH MCHC RDW Plt Count Lymph % (Auto) [place] % (Auto) Lymph # [place] # Seg Neutrophils % Seg Neuts % (Manual) Lymphocytes % (Manual) Monocytes % (Manual) Nucleated RBC % Seg Neutrophils # Seg Neutrophils # Man Lymphocytes # (Manual) Monocytes # (Manual) PT INR APTT POC ABG pH POC ABG pCO2 POC ABG pO2 Sodium 132 L Potassium Chloride Carbon Dioxide 20 L BUN 42 H Creatinine Glucose 243 H POC Glucose 332 H 345 H Calcium 6.8 L AST ALT Alkaline Phosphatase Total Creatine Kinase CK-MB (CK-2) Total Protein Albumin 08/03/16 08/03/16 08/04/16 17:38 21:36 02:18 WBC RBC Hgb Hct MCV MCH MCHC RDW Plt Count Lymph % (Auto) [place] % (Auto) Lymph # [place] # Seg Neutrophils % Seg Neuts % (Manual) Lymphocytes % (Manual) Monocytes % (Manual) Nucleated RBC % Seg Neutrophils # Seg Neutrophils # Man Lymphocytes # (Manual) Monocytes # (Manual) PT INR APTT POC ABG pH POC ABG pCO2 POC ABG pO2 Sodium Potassium Chloride Carbon Dioxide BUN Creatinine Glucose POC Glucose 262 H 260 H 256 H Calcium AST ALT Alkaline Phosphatase Total Creatine Kinase CK-MB (CK-2) Total Protein Albumin 08/04/16 08/04/16 08/04/16 05:41 06:00 10:20 WBC RBC Hgb Hct MCV MCH MCHC RDW Plt Count Lymph % (Auto) [place] % (Auto) Lymph # [place] # Seg Neutrophils % Seg Neuts % (Manual) Lymphocytes % (Manual) Monocytes % (Manual) Nucleated RBC % Seg Neutrophils # Seg Neutrophils # Man Lymphocytes # (Manual) Monocytes # (Manual) PT INR APTT POC ABG pH POC ABG pCO2 POC ABG pO2 Sodium Potassium Chloride Carbon Dioxide BUN 34 H Creatinine 0.7 L Glucose 237 H POC Glucose 265 H 266 H Calcium 7.9 L D AST ALT Alkaline Phosphatase Total Creatine Kinase CK-MB (CK-2) Total Protein Albumin 08/04/16 08/04/16 08/04/16 14:20 17:31 21:52 WBC RBC Hgb Hct MCV MCH MCHC RDW Plt Count Lymph % (Auto) [place] % (Auto) Lymph # [place] # Seg Neutrophils % Seg Neuts % (Manual) Lymphocytes % (Manual) Monocytes % (Manual) Nucleated RBC % Seg Neutrophils # Seg Neutrophils # Man Lymphocytes # (Manual) Monocytes # (Manual) PT INR APTT POC ABG pH POC ABG pCO2 POC ABG pO2 Sodium Potassium Chloride Carbon Dioxide BUN Creatinine Glucose POC Glucose 302 H 337 H 340 H Calcium AST ALT Alkaline Phosphatase Total Creatine Kinase CK-MB (CK-2) Total Protein Albumin 08/05/16 08/05/16 08/05/16 01:43 05:00 05:00 WBC RBC Hgb 9.5 L Hct 30.1 L MCV 81 L MCH 26 L MCHC RDW 19.1 H Plt Count 112 L Lymph % (Auto) [place] % (Auto) Lymph # [place] # Seg Neutrophils % Seg Neuts % (Manual) Lymphocytes % (Manual) Monocytes % (Manual) Nucleated RBC % Seg Neutrophils # Seg Neutrophils # Man Lymphocytes # (Manual) Monocytes # (Manual) PT INR APTT POC ABG pH POC ABG pCO2 POC ABG pO2 Sodium Potassium Chloride Carbon Dioxide BUN 27 H Creatinine 0.7 L Glucose 212 H POC Glucose 247 H Calcium 8.3 L AST 92 H ALT 81 H Alkaline Phosphatase 629 H Total Creatine Kinase CK-MB (CK-2) Total Protein 5.9 L Albumin 2.2 L 08/05/16 08/05/16 08/05/16 05:14 05:19 10:12 WBC RBC Hgb Hct MCV MCH MCHC RDW Plt Count Lymph % (Auto) [place] % (Auto) Lymph # [place] # Seg Neutrophils % Seg Neuts % (Manual) Lymphocytes % (Manual) Monocytes % (Manual) Nucleated RBC % Seg Neutrophils # Seg Neutrophils # Man Lymphocytes # (Manual) Monocytes # (Manual) PT INR APTT POC ABG pH 7.469 H POC ABG pCO2 POC ABG pO2 109 H Sodium Potassium Chloride Carbon Dioxide BUN Creatinine Glucose POC Glucose 208 H 206 H Calcium AST ALT Alkaline Phosphatase Total Creatine Kinase CK-MB (CK-2) Total Protein Albumin 08/05/16 08/05/16 08/05/16 13:54 18:31 22:06 WBC RBC Hgb Hct MCV MCH MCHC RDW Plt Count Lymph % (Auto) [place] % (Auto) Lymph # [place] # Seg Neutrophils % Seg Neuts % (Manual) Lymphocytes % (Manual) Monocytes % (Manual) Nucleated RBC % Seg Neutrophils # Seg Neutrophils # Man Lymphocytes # (Manual) Monocytes # (Manual) PT INR APTT POC ABG pH POC ABG pCO2 POC ABG pO2 Sodium Potassium Chloride Carbon Dioxide BUN Creatinine Glucose POC Glucose 226 H 229 H 245 H Calcium AST ALT Alkaline Phosphatase Total Creatine Kinase CK-MB (CK-2) Total Protein Albumin 08/06/16 08/06/16 08/06/16 02:03 05:31 05:42 WBC RBC Hgb Hct MCV MCH MCHC RDW Plt Count Lymph % (Auto) [place] % (Auto) Lymph # [place] # Seg Neutrophils % Seg Neuts % (Manual) Lymphocytes % (Manual) Monocytes % (Manual) Nucleated RBC % Seg Neutrophils # Seg Neutrophils # Man Lymphocytes # (Manual) Monocytes # (Manual) PT INR APTT POC ABG pH POC ABG pCO2 POC ABG pO2 62 L Sodium Potassium Chloride Carbon Dioxide BUN Creatinine Glucose POC Glucose 237 H 205 H Calcium AST ALT Alkaline Phosphatase Total Creatine Kinase CK-MB (CK-2) Total Protein Albumin 08/06/16 08/06/16 08/06/16 09:36 11:30 14:23 WBC RBC Hgb Hct MCV MCH MCHC RDW Plt Count Lymph % (Auto) [place] % (Auto) Lymph # [place] # Seg Neutrophils % Seg Neuts % (Manual) Lymphocytes % (Manual) Monocytes % (Manual) Nucleated RBC % Seg Neutrophils # Seg Neutrophils # Man Lymphocytes # (Manual) Monocytes # (Manual) PT 18.9 H INR 1.59 H APTT 39.7 H POC ABG pH POC ABG pCO2 POC ABG pO2 Sodium Potassium Chloride Carbon Dioxide BUN Creatinine Glucose POC Glucose 279 H 264 H Calcium AST ALT Alkaline Phosphatase Total Creatine Kinase CK-MB (CK-2) Total Protein Albumin 08/06/16 08/07/16 08/07/16 18:07 03:01 05:18 WBC RBC Hgb Hct MCV MCH MCHC RDW Plt Count Lymph % (Auto) [place] % (Auto) Lymph # [place] # Seg Neutrophils % Seg Neuts % (Manual) Lymphocytes % (Manual) Monocytes % (Manual) Nucleated RBC % Seg Neutrophils # Seg Neutrophils # Man Lymphocytes # (Manual) Monocytes # (Manual) PT INR APTT POC ABG pH 7.459 H POC ABG pCO2 POC ABG pO2 Sodium Potassium Chloride Carbon Dioxide BUN Creatinine Glucose POC Glucose 176 H 172 H Calcium AST ALT Alkaline Phosphatase Total Creatine Kinase CK-MB (CK-2) Total Protein Albumin 08/07/16 08/07/16 08/07/16 05:32 07:30 07:30 WBC RBC 3.39 L Hgb 8.6 L Hct 27.2 L MCV 80 L MCH 25 L MCHC RDW 19.1 H Plt Count 136 L Lymph % (Auto) [place] % (Auto) Lymph # [place] # Seg Neutrophils % Seg Neuts % (Manual) 84.0 H Lymphocytes % (Manual) 4.0 L Monocytes % (Manual) 8.0 H Nucleated RBC % Seg Neutrophils # Seg Neutrophils # Man 8.2 H Lymphocytes # (Manual) 0.4 L Monocytes # (Manual) PT 17.2 H INR 1.41 H APTT POC ABG pH POC ABG pCO2 POC ABG pO2 Sodium Potassium Chloride Carbon Dioxide BUN Creatinine Glucose POC Glucose 204 H Calcium AST ALT Alkaline Phosphatase Total Creatine Kinase CK-MB (CK-2) Total Protein Albumin 08/07/16 08/07/16 08/07/16 07:30 10:03 14:35 WBC RBC Hgb Hct MCV MCH MCHC RDW Plt Count Lymph % (Auto) [place] % (Auto) Lymph # [place] # Seg Neutrophils % Seg Neuts % (Manual) Lymphocytes % (Manual) Monocytes % (Manual) Nucleated RBC % Seg Neutrophils # Seg Neutrophils # Man Lymphocytes # (Manual) Monocytes # (Manual) PT INR APTT POC ABG pH POC ABG pCO2 POC ABG pO2 Sodium Potassium Chloride Carbon Dioxide BUN 27 H Creatinine 0.7 L Glucose 201 H POC Glucose 233 H 255 H Calcium 7.9 L AST 73 H ALT 74 H Alkaline Phosphatase 595 H Total Creatine Kinase CK-MB (CK-2) Total Protein 5.1 L Albumin 1.8 L 08/07/16 08/07/16 08/08/16 16:09 22:01 01:27 WBC RBC Hgb Hct MCV MCH MCHC RDW Plt Count Lymph % (Auto) [place] % (Auto) Lymph # [place] # Seg Neutrophils % Seg Neuts % (Manual) Lymphocytes % (Manual) Monocytes % (Manual) Nucleated RBC % Seg Neutrophils # Seg Neutrophils # Man Lymphocytes # (Manual) Monocytes # (Manual) PT INR APTT POC ABG pH POC ABG pCO2 POC ABG pO2 Sodium Potassium Chloride Carbon Dioxide BUN Creatinine Glucose POC Glucose 259 H 255 H 252 H Calcium AST ALT Alkaline Phosphatase Total Creatine Kinase CK-MB (CK-2) Total Protein Albumin 08/08/16 08/08/16 08/08/16 05:13 06:23 07:40 WBC RBC 3.36 L Hgb 8.5 L Hct 27.1 L MCV 81 L MCH 25 L MCHC 31 L RDW 18.8 H Plt Count 129 L Lymph % (Auto) [place] % (Auto) Lymph # [place] # Seg Neutrophils % Seg Neuts % (Manual) Lymphocytes % (Manual) Monocytes % (Manual) Nucleated RBC % 2.0 H Seg Neutrophils # Seg Neutrophils # Man Lymphocytes # (Manual) Monocytes # (Manual) PT INR APTT POC ABG pH 7.460 H POC ABG pCO2 POC ABG pO2 74 L Sodium Potassium Chloride Carbon Dioxide BUN Creatinine Glucose POC Glucose 264 H Calcium AST ALT Alkaline Phosphatase Total Creatine Kinase CK-MB (CK-2) Total Protein Albumin 08/08/16 08/08/16 08/08/16 07:40 10:01 15:00 WBC RBC Hgb Hct MCV MCH MCHC RDW Plt Count Lymph % (Auto) [place] % (Auto) Lymph # [place] # Seg Neutrophils % Seg Neuts % (Manual) Lymphocytes % (Manual) Monocytes % (Manual) Nucleated RBC % Seg Neutrophils # Seg Neutrophils # Man Lymphocytes # (Manual) Monocytes # (Manual) PT INR APTT POC ABG pH POC ABG pCO2 POC ABG pO2 Sodium Potassium Chloride Carbon Dioxide BUN 26 H Creatinine 0.7 L Glucose 233 H POC Glucose 271 H 275 H Calcium 7.6 L AST 77 H ALT 71 H Alkaline Phosphatase 658 H Total Creatine Kinase CK-MB (CK-2) Total Protein 5.0 L Albumin 1.6 L 08/08/16 08/08/16 08/08/16 17:28 21:32 23:53 WBC RBC Hgb Hct MCV MCH MCHC RDW Plt Count Lymph % (Auto) [place] % (Auto) Lymph # [place] # Seg Neutrophils % Seg Neuts % (Manual) Lymphocytes % (Manual) Monocytes % (Manual) Nucleated RBC % Seg Neutrophils # Seg Neutrophils # Man Lymphocytes # (Manual) Monocytes # (Manual) PT INR APTT POC ABG pH POC ABG pCO2 POC ABG pO2 Sodium Potassium Chloride Carbon Dioxide BUN Creatinine Glucose POC Glucose 275 H 252 H 246 H Calcium AST ALT Alkaline Phosphatase Total Creatine Kinase CK-MB (CK-2) Total Protein Albumin 08/09/16 08/09/16 08/09/16 03:32 05:00 05:00 WBC RBC 3.34 L Hgb 8.3 L Hct 26.7 L MCV 80 L MCH 25 L MCHC 31 L RDW 18.5 H Plt Count Lymph % (Auto) [place] % (Auto) Lymph # [place] # Seg Neutrophils % Seg Neuts % (Manual) Lymphocytes % (Manual) Monocytes % (Manual) Nucleated RBC % Seg Neutrophils # Seg Neutrophils # Man Lymphocytes # (Manual) Monocytes # (Manual) PT INR APTT POC ABG pH POC ABG pCO2 POC ABG pO2 Sodium Potassium Chloride Carbon Dioxide BUN 25 H Creatinine 0.5 L Glucose 230 H POC Glucose 260 H Calcium 7.6 L AST ALT Alkaline Phosphatase Total Creatine Kinase CK-MB (CK-2) Total Protein Albumin 08/09/16 08/09/16 08/09/16 06:00 10:07 14:07 WBC RBC Hgb Hct MCV MCH MCHC RDW Plt Count Lymph % (Auto) [place] % (Auto) Lymph # [place] # Seg Neutrophils % Seg Neuts % (Manual) Lymphocytes % (Manual) Monocytes % (Manual) Nucleated RBC % Seg Neutrophils # Seg Neutrophils # Man Lymphocytes # (Manual) Monocytes # (Manual) PT INR APTT POC ABG pH 7.493 H POC ABG pCO2 POC ABG pO2 Sodium Potassium Chloride Carbon Dioxide BUN Creatinine Glucose POC Glucose 216 H 220 H Calcium AST ALT Alkaline Phosphatase Total Creatine Kinase CK-MB (CK-2) Total Protein Albumin 08/09/16 08/09/16 08/10/16 16:55 21:07 02:09 WBC RBC Hgb Hct MCV MCH MCHC RDW Plt Count Lymph % (Auto) [place] % (Auto) Lymph # [place] # Seg Neutrophils % Seg Neuts % (Manual) Lymphocytes % (Manual) Monocytes % (Manual) Nucleated RBC % Seg Neutrophils # Seg Neutrophils # Man Lymphocytes # (Manual) Monocytes # (Manual) PT INR APTT POC ABG pH POC ABG pCO2 POC ABG pO2 Sodium Potassium Chloride Carbon Dioxide BUN Creatinine Glucose POC Glucose 242 H 235 H 228 H Calcium AST ALT Alkaline Phosphatase Total Creatine Kinase CK-MB (CK-2) Total Protein Albumin 08/10/16 08/10/16 08/10/16 05:31 09:06 13:45 WBC RBC Hgb Hct MCV MCH MCHC RDW Plt Count Lymph % (Auto) [place] % (Auto) Lymph # [place] # Seg Neutrophils % Seg Neuts % (Manual) Lymphocytes % (Manual) Monocytes % (Manual) Nucleated RBC % Seg Neutrophils # Seg Neutrophils # Man Lymphocytes # (Manual) Monocytes # (Manual) PT INR APTT POC ABG pH POC ABG pCO2 POC ABG pO2 Sodium Potassium Chloride Carbon Dioxide BUN Creatinine Glucose POC Glucose 201 H 229 H 274 H Calcium AST ALT Alkaline Phosphatase Total Creatine Kinase CK-MB (CK-2) Total Protein Albumin 08/10/16 08/10/16 08/10/16 17:53 21:43 Unknown WBC RBC 3.42 L Hgb 8.6 L Hct 27.5 L MCV 80 L MCH 25 L MCHC RDW 19.1 H Plt Count Lymph % (Auto) [place] % (Auto) Lymph # [place] # Seg Neutrophils % Seg Neuts % (Manual) Lymphocytes % (Manual) Monocytes % (Manual) Nucleated RBC % Seg Neutrophils # Seg Neutrophils # Man Lymphocytes # (Manual) Monocytes # (Manual) PT INR APTT POC ABG pH POC ABG pCO2 POC ABG pO2 Sodium Potassium Chloride Carbon Dioxide BUN Creatinine Glucose POC Glucose 284 H 328 H Calcium AST ALT Alkaline Phosphatase Total Creatine Kinase CK-MB (CK-2) Total Protein Albumin 08/10/16 08/11/16 08/11/16 Unknown 01:37 05:39 WBC RBC Hgb Hct MCV MCH MCHC RDW Plt Count Lymph % (Auto) [place] % (Auto) Lymph # [place] # Seg Neutrophils % Seg Neuts % (Manual) Lymphocytes % (Manual) Monocytes % (Manual) Nucleated RBC % Seg Neutrophils # Seg Neutrophils # Man Lymphocytes # (Manual) Monocytes # (Manual) PT INR APTT POC ABG pH POC ABG pCO2 POC ABG pO2 Sodium Potassium Chloride Carbon Dioxide BUN 27 H Creatinine 0.6 L Glucose 211 H POC Glucose 340 H 323 H Calcium 7.8 L AST ALT Alkaline Phosphatase Total Creatine Kinase CK-MB (CK-2) Total Protein Albumin 08/11/16 08/11/16 08/11/16 09:58 15:22 17:41 WBC RBC Hgb Hct MCV MCH MCHC RDW Plt Count Lymph % (Auto) [place] % (Auto) Lymph # [place] # Seg Neutrophils % Seg Neuts % (Manual) Lymphocytes % (Manual) Monocytes % (Manual) Nucleated RBC % Seg Neutrophils # Seg Neutrophils # Man Lymphocytes # (Manual) Monocytes # (Manual) PT INR APTT POC ABG pH POC ABG pCO2 POC ABG pO2 Sodium Potassium Chloride Carbon Dioxide BUN Creatinine Glucose POC Glucose 295 H 210 H 164 H Calcium AST ALT Alkaline Phosphatase Total Creatine Kinase CK-MB (CK-2) Total Protein Albumin 08/11/16 08/12/1617 21:53 01:56 05:15 WBC RBC Hgb Hct MCV MCH MCHC RDW Plt Count Lymph % (Auto) [place] % (Auto) Lymph # [place] # Seg Neutrophils % Seg Neuts % (Manual) Lymphocytes % (Manual) Monocytes % (Manual) Nucleated RBC % Seg Neutrophils # Seg Neutrophils # Man Lymphocytes # (Manual) Monocytes # (Manual) PT INR APTT POC ABG pH POC ABG pCO2 POC ABG pO2 Sodium Potassium Chloride Carbon Dioxide BUN Creatinine Glucose POC Glucose 171 H 205 H 156 H Calcium AST ALT Alkaline Phosphatase Total Creatine Kinase CK-MB (CK-2) Total Protein Albumin 08/12/16 08/12/16 08/12/16 10:10 14:33 17:53 WBC RBC Hgb Hct MCV MCH MCHC RDW Plt Count Lymph % (Auto) [place] % (Auto) Lymph # [place] # Seg Neutrophils % Seg Neuts % (Manual) Lymphocytes % (Manual) Monocytes % (Manual) Nucleated RBC % Seg Neutrophils # Seg Neutrophils # Man Lymphocytes # (Manual) Monocytes # (Manual) PT INR APTT POC ABG pH POC ABG pCO2 POC ABG pO2 Sodium Potassium Chloride Carbon Dioxide BUN Creatinine Glucose POC Glucose 224 H 245 H 259 H Calcium AST ALT Alkaline Phosphatase Total Creatine Kinase CK-MB (CK-2) Total Protein Albumin 08/12/16 08/13/16 08/13/16 21:56 04:00 04:02 WBC RBC Hgb Hct MCV MCH MCHC RDW Plt Count Lymph % (Auto) [place] % (Auto) Lymph # [place] # Seg Neutrophils % Seg Neuts % (Manual) Lymphocytes % (Manual) Monocytes % (Manual) Nucleated RBC % Seg Neutrophils # Seg Neutrophils # Man Lymphocytes # (Manual) Monocytes # (Manual) PT INR APTT POC ABG pH POC ABG pCO2 POC ABG pO2 Sodium 136 L Potassium Chloride 97.2 L Carbon Dioxide BUN 26 H Creatinine 0.6 L Glucose 185 H POC Glucose 229 H 202 H Calcium 7.3 L AST ALT Alkaline Phosphatase Total Creatine Kinase CK-MB (CK-2) Total Protein Albumin 08/13/16 08/13/16 08/13/16 06:47 09:53 13:40 WBC RBC Hgb Hct MCV MCH MCHC RDW Plt Count Lymph % (Auto) [place] % (Auto) Lymph # [place] # Seg Neutrophils % Seg Neuts % (Manual) Lymphocytes % (Manual) Monocytes % (Manual) Nucleated RBC % Seg Neutrophils # Seg Neutrophils # Man Lymphocytes # (Manual) Monocytes # (Manual) PT INR APTT POC ABG pH POC ABG pCO2 POC ABG pO2 Sodium Potassium Chloride Carbon Dioxide BUN Creatinine Glucose POC Glucose 191 H 221 H 225 H Calcium AST ALT Alkaline Phosphatase Total Creatine Kinase CK-MB (CK-2) Total Protein Albumin 08/13/16 08/13/16 08/13/16 17:07 21:09 Unknown WBC RBC 3.53 L Hgb 8.9 L Hct 28.4 L MCV 81 L MCH 25 L MCHC 31 L RDW 19.2 H Plt Count Lymph % (Auto) [place] % (Auto) Lymph # [place] # Seg Neutrophils % Seg Neuts % (Manual) Lymphocytes % (Manual) Monocytes % (Manual) Nucleated RBC % Seg Neutrophils # Seg Neutrophils # Man Lymphocytes # (Manual) Monocytes # (Manual) PT INR APTT POC ABG pH POC ABG pCO2 POC ABG pO2 Sodium Potassium Chloride Carbon Dioxide BUN Creatinine Glucose POC Glucose 232 H 166 H Calcium AST ALT Alkaline Phosphatase Total Creatine Kinase CK-MB (CK-2) Total Protein Albumin 08/14/16 08/14/16 08/14/16 01:42 05:16 08:57 WBC RBC Hgb Hct MCV MCH MCHC RDW Plt Count Lymph % (Auto) [place] % (Auto) Lymph # [place] # Seg Neutrophils % Seg Neuts % (Manual) Lymphocytes % (Manual) Monocytes % (Manual) Nucleated RBC % Seg Neutrophils # Seg Neutrophils # Man Lymphocytes # (Manual) Monocytes # (Manual) PT INR APTT POC ABG pH POC ABG pCO2 POC ABG pO2 Sodium Potassium Chloride Carbon Dioxide BUN Creatinine Glucose POC Glucose 172 H 182 H 233 H Calcium AST ALT Alkaline Phosphatase Total Creatine Kinase CK-MB (CK-2) Total Protein Albumin 08/14/16 08/14/16 08/14/16 11:30 14:09 17:48 WBC RBC Hgb Hct MCV MCH MCHC RDW Plt Count Lymph % (Auto) [place] % (Auto) Lymph # [place] # Seg Neutrophils % Seg Neuts % (Manual) Lymphocytes % (Manual) Monocytes % (Manual) Nucleated RBC % Seg Neutrophils # Seg Neutrophils # Man Lymphocytes # (Manual) Monocytes # (Manual) PT INR APTT POC ABG pH POC ABG pCO2 POC ABG pO2 Sodium 135 L Potassium Chloride 97.0 L Carbon Dioxide BUN 31 H Creatinine 0.7 L Glucose 271 H POC Glucose 302 H 260 H Calcium 7.4 L AST 86 H ALT 79 H Alkaline Phosphatase 1015 H Total Creatine Kinase CK-MB (CK-2) Total Protein 6.1 L Albumin 2.1 L 08/14/16 08/15/16 08/15/16 22:26 01:58 04:55 WBC RBC Hgb 9.1 L Hct 28.8 L MCV 79 L MCH 25 L MCHC RDW 19.1 H Plt Count Lymph % (Auto) [place] % (Auto) Lymph # [place] # Seg Neutrophils % Seg Neuts % (Manual) Lymphocytes % (Manual) Monocytes % (Manual) Nucleated RBC % Seg Neutrophils # Seg Neutrophils # Man Lymphocytes # (Manual) Monocytes # (Manual) PT INR APTT POC ABG pH POC ABG pCO2 POC ABG pO2 Sodium Potassium Chloride Carbon Dioxide BUN Creatinine Glucose POC Glucose 188 H 200 H Calcium AST ALT Alkaline Phosphatase Total Creatine Kinase CK-MB (CK-2) Total Protein Albumin 08/15/16 08/15/16 08/15/16 04:55 09:43 13:06 WBC RBC Hgb Hct MCV MCH MCHC RDW Plt Count Lymph % (Auto) [place] % (Auto) Lymph # [place] # Seg Neutrophils % Seg Neuts % (Manual) Lymphocytes % (Manual) Monocytes % (Manual) Nucleated RBC % Seg Neutrophils # Seg Neutrophils # Man Lymphocytes # (Manual) Monocytes # (Manual) PT INR APTT POC ABG pH POC ABG pCO2 POC ABG pO2 Sodium 133 L Potassium Chloride 96.2 L Carbon Dioxide BUN 35 H Creatinine 0.6 L Glucose 168 H POC Glucose 253 H 196 H Calcium 7.6 L AST 87 H ALT 77 H Alkaline Phosphatase 1075 H Total Creatine Kinase CK-MB (CK-2) Total Protein 6.2 L Albumin 2.2 L 08/15/16 08/15/16 08/16/16 17:13 21:27 02:00 WBC RBC Hgb Hct MCV MCH MCHC RDW Plt Count Lymph % (Auto) [place] % (Auto) Lymph # [place] # Seg Neutrophils % Seg Neuts % (Manual) Lymphocytes % (Manual) Monocytes % (Manual) Nucleated RBC % Seg Neutrophils # Seg Neutrophils # Man Lymphocytes # (Manual) Monocytes # (Manual) PT INR APTT POC ABG pH POC ABG pCO2 POC ABG pO2 Sodium Potassium Chloride Carbon Dioxide BUN Creatinine Glucose POC Glucose 152 H 119 H 171 H Calcium AST ALT Alkaline Phosphatase Total Creatine Kinase CK-MB (CK-2) Total Protein Albumin 08/16/16 08/16/16 08/16/16 05:29 06:00 06:00 WBC 11.2 H RBC Hgb 9.6 L Hct 30.8 L MCV 79 L MCH 25 L MCHC 31 L RDW 19.2 H Plt Count Lymph % (Auto) [place] % (Auto) Lymph # [place] # Seg Neutrophils % Seg Neuts % (Manual) 83.0 H Lymphocytes % (Manual) 12.0 L Monocytes % (Manual) Nucleated RBC % Seg Neutrophils # Seg Neutrophils # Man 9.3 H Lymphocytes # (Manual) Monocytes # (Manual) PT INR APTT POC ABG pH POC ABG pCO2 POC ABG pO2 Sodium Potassium Chloride Carbon Dioxide BUN 30 H Creatinine 0.6 L Glucose 136 H POC Glucose 164 H Calcium 7.5 L AST ALT Alkaline Phosphatase Total Creatine Kinase CK-MB (CK-2) Total Protein Albumin 08/16/16 08/16/16 08/16/16 09:31 13:27 17:28 WBC RBC Hgb Hct MCV MCH MCHC RDW Plt Count Lymph % (Auto) [place] % (Auto) Lymph # [place] # Seg Neutrophils % Seg Neuts % (Manual) Lymphocytes % (Manual) Monocytes % (Manual) Nucleated RBC % Seg Neutrophils # Seg Neutrophils # Man Lymphocytes # (Manual) Monocytes # (Manual) PT INR APTT POC ABG pH POC ABG pCO2 POC ABG pO2 Sodium Potassium Chloride Carbon Dioxide BUN Creatinine Glucose POC Glucose 270 H 217 H 227 H Calcium AST ALT Alkaline Phosphatase Total Creatine Kinase CK-MB (CK-2) Total Protein Albumin 08/16/16 08/17/16 08/17/16 21:32 05:50 09:55 WBC RBC Hgb Hct MCV MCH MCHC RDW Plt Count Lymph % (Auto) [place] % (Auto) Lymph # [place] # Seg Neutrophils % Seg Neuts % (Manual) Lymphocytes % (Manual) Monocytes % (Manual) Nucleated RBC % Seg Neutrophils # Seg Neutrophils # Man Lymphocytes # (Manual) Monocytes # (Manual) PT INR APTT POC ABG pH POC ABG pCO2 POC ABG pO2 Sodium Potassium Chloride Carbon Dioxide BUN Creatinine Glucose POC Glucose 186 H 131 H 170 H Calcium AST ALT Alkaline Phosphatase Total Creatine Kinase CK-MB (CK-2) Total Protein Albumin 08/17/16 08/17/16 08/18/16 17:21 21:56 02:02 WBC RBC Hgb Hct MCV MCH MCHC RDW Plt Count Lymph % (Auto) [place] % (Auto) Lymph # [place] # Seg Neutrophils % Seg Neuts % (Manual) Lymphocytes % (Manual) Monocytes % (Manual) Nucleated RBC % Seg Neutrophils # Seg Neutrophils # Man Lymphocytes # (Manual) Monocytes # (Manual) PT INR APTT POC ABG pH POC ABG pCO2 POC ABG pO2 Sodium Potassium Chloride Carbon Dioxide BUN Creatinine Glucose POC Glucose 190 H 207 H 170 H Calcium AST ALT Alkaline Phosphatase Total Creatine Kinase CK-MB (CK-2) Total Protein Albumin 08/18/16 08/18/16 08/18/16 05:22 10:16 14:19 WBC RBC Hgb Hct MCV MCH MCHC RDW Plt Count Lymph % (Auto) [place] % (Auto) Lymph # [place] # Seg Neutrophils % Seg Neuts % (Manual) Lymphocytes % (Manual) Monocytes % (Manual) Nucleated RBC % Seg Neutrophils # Seg Neutrophils # Man Lymphocytes # (Manual) Monocytes # (Manual) PT INR APTT POC ABG pH POC ABG pCO2 POC ABG pO2 Sodium Potassium Chloride Carbon Dioxide BUN Creatinine Glucose POC Glucose 173 H 200 H 215 H Calcium AST ALT Alkaline Phosphatase Total Creatine Kinase CK-MB (CK-2) Total Protein Albumin 08/18/16 08/18/16 08/19/16 18:40 21:31 01:59 WBC RBC Hgb Hct MCV MCH MCHC RDW Plt Count Lymph % (Auto) [place] % (Auto) Lymph # [place] # Seg Neutrophils % Seg Neuts % (Manual) Lymphocytes % (Manual) Monocytes % (Manual) Nucleated RBC % Seg Neutrophils # Seg Neutrophils # Man Lymphocytes # (Manual) Monocytes # (Manual) PT INR APTT POC ABG pH POC ABG pCO2 POC ABG pO2 Sodium Potassium Chloride Carbon Dioxide BUN Creatinine Glucose POC Glucose 245 H 277 H 269 H Calcium AST ALT Alkaline Phosphatase Total Creatine Kinase CK-MB (CK-2) Total Protein Albumin 08/19/16 08/19/16 08/19/16 05:28 08:51 08:51 WBC 14.2 H RBC Hgb 10.1 L Hct 32.4 L MCV 80 L MCH 25 L MCHC 31 L RDW 19.6 H Plt Count Lymph % (Auto) [place] % (Auto) 13.2 H Lymph # [place] # 1.9 H Seg Neutrophils % Seg Neuts % (Manual) Lymphocytes % (Manual) Monocytes % (Manual) 10.0 H Nucleated RBC % Seg Neutrophils # 9.0 H Seg Neutrophils # Man 9.4 H Lymphocytes # (Manual) Monocytes # (Manual) 1.4 H PT INR APTT POC ABG pH POC ABG pCO2 POC ABG pO2 Sodium 136 L Potassium 5.2 H Chloride Carbon Dioxide 21 L BUN 29 H Creatinine Glucose 287 H POC Glucose 298 H Calcium 7.9 L AST ALT Alkaline Phosphatase Total Creatine Kinase CK-MB (CK-2) Total Protein Albumin 08/19/16 08/19/16 08/19/16 09:51 13:13 18:17 WBC RBC Hgb Hct MCV MCH MCHC RDW Plt Count Lymph % (Auto) [place] % (Auto) Lymph # [place] # Seg Neutrophils % Seg Neuts % (Manual) Lymphocytes % (Manual) Monocytes % (Manual) Nucleated RBC % Seg Neutrophils # Seg Neutrophils # Man Lymphocytes # (Manual) Monocytes # (Manual) PT INR APTT POC ABG pH POC ABG pCO2 POC ABG pO2 Sodium Potassium Chloride Carbon Dioxide BUN Creatinine Glucose POC Glucose 313 H 360 H 382 H Calcium AST ALT Alkaline Phosphatase Total Creatine Kinase CK-MB (CK-2) Total Protein Albumin 08/19/16 08/20/16 08/20/16 21:30 01:48 05:48 WBC 11.3 H RBC Hgb 9.6 L Hct 30.8 L MCV 81 L MCH 25 L MCHC 31 L RDW 19.6 H Plt Count Lymph % (Auto) [place] % (Auto) Lymph # [place] # Seg Neutrophils % Seg Neuts % (Manual) Lymphocytes % (Manual) 11.0 L Monocytes % (Manual) 8.0 H Nucleated RBC % Seg Neutrophils # Seg Neutrophils # Man Lymphocytes # (Manual) Monocytes # (Manual) 0.9 H PT INR APTT POC ABG pH POC ABG pCO2 POC ABG pO2 Sodium Potassium Chloride Carbon Dioxide BUN Creatinine Glucose POC Glucose 321 H 312 H Calcium AST ALT Alkaline Phosphatase Total Creatine Kinase CK-MB (CK-2) Total Protein Albumin
[2016-08-20] MEDS: LEVEMIR SUB-Q SCH (10:12)
[2016-08-20] MEDS: ASPIRIN PO SCH (10:12)
[2016-08-20] MEDS: PEPCID PO SCH ×2 (10:12→22:16)
[2016-08-20 12:14] LABS: ISTAT Base Excess 1; ISTAT HCO3 25.6; ISTAT PCO2 40.7 (35-45); ISTAT PH 7.407 (7.35-7.45); ISTAT PO2 81 (80-105); ISTAT SO2 96; ISTAT TCO2 27
[2016-08-20] MEDS ORDERED: APRESOLINE IV PRN (12:18)
--- NOTE | 2016-08-20 12:18 | Progress Note ---
Assessment and Plan Assessment and plan: Acute Respiratory failure - Multiple failed weaning attempts -Continue daily PSV and AC rest at night. - Tracheostomy and PEG tube placement completed and patient tolerating well. Sepsis with PNA -pt had elevated white count on admission, tachycardia and fever -tracheal aspirate grew Pseudomonas, resistant to zosyn -Completed Meropenem. 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 Acut ischemic stroke, bilateral - likely present since admission - Continue Aspirin - neuro following Elevated LFTs - Obtained ultrasound of the abdomen which showed cholelithiasis without cholecystitis - monitor LFT Hypertension -BP controlled Diabetes mellitus type 2, uncontrolled. -Increase Levemir -Continue Accu-Cheks and sliding scale insulin. Hyperlipidemia - cont statin BPH - monitor urine output Malar rash. As above. Disposition. Anticipate discharge to LTAC in am. History Interval history: Patient is 76 year-old man with a history of hypertension, diabetes, hyperlipidemia, BPH, was brought to the emergency room because son found him on the floor unresponsive. Patient was intubated in the emergency room. MRI of brain showed bilateral acute ischemic stroke. Tracheal aspirate growing Pseudomonas Aeruginosa and Escherichia Coli. No new issues overnight. Hospitalist Physical - Constitutional Vitals: Temp Pulse Resp BP Pulse Ox 99.6 F 105 H 20 134/60 98 08/20/16 12:00 08/20/16 12:00 08/20/16 12:00 08/20/16 11:00 08/20/16 12:00 General appearance: Present: other (intubated, FiO2 30%; opens eyes briefly to voice and tactile stimuli) - EENT Eyes: Present: PERRL, EOM intact ENT: hearing intact, clear oral mucosa, dentition normal - Neck Neck: Present: supple, normal ROM - Respiratory Respiratory effort: normal Respiratory: bilateral: diminished, rhonchi - Cardiovascular Rhythm: regular Heart Sounds: Present: S1 & S2. Absent: gallop, rub - Extremities Extremities: no ischemia, No edema, Full ROM - Abdominal General gastrointestinal: soft, non-tender, non-distended, normal bowel sounds - Integumentary Integumentary: Present: clear, warm, dry - Neurologic Neurologic: CNII-XII intact, moves all extremities Results - Labs CBC & Chem 7: 08/20/16 05:48 08/20/16 05:45 Labs: Laboratory Last Values WBC 11.3 K/mm3 (4.5-11.0) H 08/20/16 05:48 RBC 3.79 M/mm3 (3.65-5.03) 08/20/16 05:48 Hgb 9.6 gm/dl (11.8-15.2) L 08/20/16 05:48 Hct 30.8 % (35.5-45.6) L 08/20/16 05:48 MCV 81 fl (84-94) L 08/20/16 05:48 MCH 25 pg (28-32) L 08/20/16 05:48 MCHC 31 % (32-34) L 08/20/16 05:48 RDW 19.6 % (13.2-15.2) H 08/20/16 05:48 Plt Count 192 K/mm3 (140-440) 08/20/16 05:48 Lymph % (Auto) Carton Repairer 08/20/16 05:48 [place] % (Auto) Carton Repairer 08/20/16 05:48 Eos % (Auto) Carton Repairer 08/20/16 05:48 Baso % (Auto) Carton Repairer 08/20/16 05:48 Lymph # Carton Repairer 08/20/16 05:48 [place] # Carton Repairer 08/20/16 05:48 Eos # Carton Repairer 08/20/16 05:48 Baso # Carton Repairer 08/20/16 05:48 Add Manual Diff Complete 08/20/16 05:48 Total Counted 100 08/20/16 05:48 Seg Neutrophils % Carton Repairer 08/20/16 05:48 Seg Neuts % (Manual) 55.0 % (40.0-70.0) 08/20/16 05:48 Band Neutrophils % 21.0 % 08/20/16 05:48 Lymphocytes % (Manual) 11.0 % (13.4-35.0) L 08/20/16 05:48 Reactive Lymphs % (Man) 3.0 % 08/20/16 05:48 Monocytes % (Manual) 8.0 % (0.0-7.3) H 08/20/16 05:48 Eosinophils % (Manual) 2.0 % (0.0-4.3) 08/20/16 05:48 Basophils % (Manual) 0 % (0.0-1.8) 08/20/16 05:48 Metamyelocytes % 0 % 08/20/16 05:48 Myelocytes % 0 % 08/20/16 05:48 Promyelocytes % 0 % 08/20/16 05:48 Blast Cells % 0 % 08/20/16 05:48 Nucleated RBC % Not Reportable 08/20/16 05:48 Seg Neutrophils # Carton Repairer 08/20/16 05:48 Seg Neutrophils # Man 6.2 K/mm3 (1.8-7.7) 08/20/16 05:48 Band Neutrophils # 2.4 K/mm3 08/20/16 05:48 Lymphocytes # (Manual) 1.2 K/mm3 (1.2-5.4) 08/20/16 05:48 Abs React Lymphs (Man) 0.3 K/mm3 08/20/16 05:48 Monocytes # (Manual) 0.9 K/mm3 (0.0-0.8) H 08/20/16 05:48 Eosinophils # (Manual) 0.2 K/mm3 (0.0-0.4) 08/20/16 05:48 Basophils # (Manual) 0.0 K/mm3 (0.0-0.1) 08/20/16 05:48 Metamyelocytes # 0.0 K/mm3 08/20/16 05:48 Myelocytes # 0.0 K/mm3 08/20/16 05:48 Promyelocytes # 0.0 K/mm3 08/20/16 05:48 Blast Cells # 0.0 K/mm3 08/20/16 05:48 WBC Morphology Not Reportable 08/20/16 05:48 Hypersegmented Neuts Not Reportable 08/20/16 05:48 Hyposegmented Neuts Not Reportable 08/20/16 05:48 Hypogranular Neuts Not Reportable 08/20/16 05:48 Smudge Cells Not Reportable 08/20/16 05:48 Toxic Granulation Not Reportable 08/20/16 05:48 Toxic Vacuolation Not Reportable 08/20/16 05:48 Dohle Bodies Not Reportable 08/20/16 05:48 Pelger-Huet Anomaly Not Reportable 08/20/16 05:48 Leta Rods Not Reportable 08/20/16 05:48 Platelet Estimate Consistent w auto 08/20/16 05:48 Clumped Platelets Not Reportable 08/20/16 05:48 Plt Clumps, EDTA Not Reportable 08/20/16 05:48 Large Platelets Not Reportable 08/20/16 05:48 Giant Platelets Not Reportable 08/20/16 05:48 Platelet Satelliting Not Reportable 08/20/16 05:48 Plt Morphology Comment Not Reportable 08/20/16 05:48 RBC Morphology Not Reportable 08/20/16 05:48 Dimorphic RBCs Not Reportable 08/20/16 05:48 Polychromasia Not Reportable 08/20/16 05:48 Hypochromasia Not Reportable 08/20/16 05:48 Poikilocytosis Not Reportable 08/20/16 05:48 Anisocytosis 1+ 08/20/16 05:48 Microcytosis Not Reportable 08/20/16 05:48 Macrocytosis Not Reportable 08/20/16 05:48 Spherocytes Not Reportable 08/20/16 05:48 Pappenheimer Bodies Not Reportable 08/20/16 05:48 Sickle Cells Not Reportable 08/20/16 05:48 Target Cells Not Reportable 08/20/16 05:48 Tear Drop Cells Not Reportable 08/20/16 05:48 Ovalocytes Not Reportable 08/20/16 05:48 Helmet Cells Not Reportable 08/20/16 05:48 [place] Bodies Not Reportable 08/20/16 05:48 [place] Rings Not Reportable 08/20/16 05:48 Marianela Cells Not Reportable 08/20/16 05:48 Bite Cells Not Reportable 08/20/16 05:48 Crenated Cell Not Reportable 08/20/16 05:48 Elliptocytes Few 08/20/16 05:48 Acanthocytes (Spur) Not Reportable 08/20/16 05:48 Rouleaux Not Reportable 08/20/16 05:48 Hemoglobin C Crystals Not Reportable 08/20/16 05:48 Schistocytes Not Reportable 08/20/16 05:48 Malaria parasites Not Reportable 08/20/16 05:48 [place] Bodies Not Reportable 08/20/16 05:48 Hem Pathologist Commnt No 08/20/16 05:48 PT 17.2 Sec. (12.2-14.9) H 08/07/16 07:30 INR 1.41 (0.87-1.13) H 08/07/16 07:30 APTT 36.5 Sec. (24.2-36.6) 08/07/16 07:30 POC ABG pH 7.407 (7.35-7.45) 08/20/16 12:03 POC ABG pCO2 40.7 (35-45) 08/20/16 12:03 POC ABG pO2 81 (80-105) 08/20/16 12:03 POC ABG HCO3 25.6 08/20/16 12:03 POC ABG Total CO2 27 08/20/16 12:03 POC ABG O2 Sat 96 08/20/16 12:03 POC ABG Base Excess 1 08/20/16 12:03 VBG pH 7.447 (7.320-7.420) H 07/31/16 00:13 FiO2 28 % 08/20/16 12:03 Sodium 137 mmol/L (137-145) 08/20/16 05:45 Potassium 4.8 mmol/L (3.6-5.0) 08/20/16 05:45 Chloride 99.4 mmol/L (98-107) 08/20/16 05:45 Carbon Dioxide 24 mmol/L (22-30) 08/20/16 05:45 Anion Gap 18 mmol/L 08/20/16 05:45 BUN 31 mg/dL (9-20) H 08/20/16 05:45 Creatinine 0.6 mg/dL (0.8-1.5) L 08/20/16 05:45 Estimated GFR > 60 ml/min 08/20/16 05:45 BUN/Creatinine Ratio 51.66 % 08/20/16 05:45 Glucose 276 mg/dL (75-100) H 08/20/16 05:45 POC Glucose 346 (70-105) H 08/20/16 10:08 Lactic Acid 1.00 mmol/L (0.7-2.0) 07/31/16 00:13 Calcium 8.4 mg/dL (8.4-10.2) 08/20/16 05:45 Total Bilirubin 0.20 mg/dL (0.1-1.2) 08/15/16 04:55 AST 87 units/L (5-40) H 08/15/16 04:55 ALT 77 units/L (7-56) H 08/15/16 04:55 Alkaline Phosphatase 1075 units/L (35-129) H 08/15/16 04:55 Ammonia 49.0 umol/L (25-60) 07/31/16 00:13 Total Creatine Kinase 865 units/L (55-170) H 07/31/16 08:39 CK-MB (CK-2) 5.9 ng/mL (0.0-4.0) H 07/31/16 08:39 CK-MB (CK-2) Rel Index 0.6 (0-4) 07/31/16 08:39 Troponin T 0.011 ng/mL (0.00-0.029) 07/31/16 08:39 Total Protein 6.2 g/dL (6.3-8.2) L 08/15/16 04:55 Albumin 2.2 g/dL (3.9-5) L 08/15/16 04:55 Albumin/Globulin Ratio 0.6 % 08/15/16 04:55 TSH 1.420 mlU/mL (0.270-4.200) 08/04/16 09:50 CSF Appearance Clear 08/04/16 11:54 CSF Color Colorless 08/04/16 11:54 CSF WBC 2 /mm3 (1-10) 08/04/16 11:54 CSF RBC 30 /mm3 (0-0) 08/04/16 11:54 CSF Seg Neutrophils 0 % (0-6) 08/04/16 11:54 CSF Lymphocytes % 66.7 % (40-80) 08/04/16 11:54 CSF Reactive Lymphs 0 % 08/04/16 11:54 CSF Monocytes % 33.3 % (15-45) 08/04/16 11:54 CSF Eosinophils % 0 % 08/04/16 11:54 CSF Basophils 0 % 08/04/16 11:54 CSF Pathologist Review C 08/04/16 11:54 CSF Glucose 90 mg/dL 08/04/16 11:54 CSF Total Protein 93 mg/dL 08/04/16 11:54 CSF VDRL Nonreactive (Nonreactive) 08/04/16 11:54 Salicylates < 0.3 mg/dL (2.8-20.0) L 07/31/16 00:02 Acetaminophen < 15.0 ug/mL (10.0-30.0) 07/31/16 00:02 Miscellaneous Test Flexitest 1 08/04/16 11:54 Blood Type O POSITIVE 07/30/16 23:40 MARK Antibody Screen Negative 07/30/16 23:40
[2016-08-21 07:47] LABS: Hematocrit 32.4 % (35.5-45.6); Hemoglobin 10.1 gm/dl (11.8-15.2); Mean Corpuscular HGB Conc 31 % (32-34); Mean Corpuscular Volume 81 fl (84-94); Platelet Count 180 K/mm3 (140-440); Red Blood Count 3.99 M/mm3 (3.65-5.03); Red Cell Distribution Width 19.3 % (13.2-15.2); White Blood Count 12.6 K/mm3 (4.5-11.0)
[2016-08-21 07:55] LABS: Mean Corpuscular Hemoglobin 25 pg (28-32)
[2016-08-21 08:00] LABS: Anion Gap 19 mmol/L; BUN/Creatinine Ratio 48.57; Blood Urea Nitrogen 34 mg/dL (9-20); Calcium 8.1 mg/dL (8.4-10.2); Carbon Dioxide 23 mmol/L (22-30); Chloride 98.8 mmol/L (98-107); Glucose 403 mg/dL (75-100); Potassium 5.3 mmol/L (3.6-5.0); Sodium 135 mmol/L (137-145)
[2016-08-21 08:42] LABS: Blastocytes % (Manual) 0 %
[2016-08-21 08:43] LABS: Anisocytosis 1+; Elliptocytes Few; Hypochromasia 1+
[2016-08-21 08:44] LABS: Diff Status Complete; Platelet Estimate Consistent w Auto
--- NOTE | 2016-08-21 11:27 | Discharge Summary ---
Providers - Providers Date of Admission: 07/31/16 02:27 Date of discharge: 08/21/16 Attending physician: MARIA VICTORIA CLARK 08/01/16 10:19 Consult to Physician [CONS] Routine Consulting Provider: DAGOBERTO RAVI Reason For Exam: AMS Place consult to:: special education resource teacher neurology Notified:: Dr Ravi Was contact made?: Yes If yes, spoke with:: Dr Ravi Time called:: 09:40 08/02/16 10:43 Consult to PICC Line RN [CONS] Urgent Reason For Exam: needs iv access Type Line:: PICC 08/03/16 13:20 Consult to Physician [CONS] Routine Consulting Provider: JD NEGRON Reason For Exam: sepsis Place consult to:: Dr. Negron Notified:: yes Time called:: 13:20 08/05/16 06:24 Consult to Wound/ET Nurse [CONS] Routine Reason For Exam: wound eval left lower leg growth, black, intact 08/12/16 17:58 Consult to Physician [CONS] Routine Consulting Provider: COLIN DE JESUS I Reason For Exam: TRACH/PEG Place consult to:: Dr. De Jesus Notified:: yes Phone number called:: [phone] If yes, spoke with:: Dr. Barkley Time called:: 18:05 Primary care physician: ENGINE HEAD REPAIRER Hospitalization Condition: Stable Hospital course: Mr. Gray is a 76-year-old man with significant past medical history of diabetes mellitus type 2 and hypertension who was brought in to the ED from home after being found down with decreased responsiveness by his son. Patient was admitted to the ICU with acute hypoxic respiratory failure, encephalopathy and septic shock. Patient was intubated and remains on mechanical ventilation. Chest radiograph showed bilateral infiltrates or atelectasis and the patient was intubated while in the ED. Sepsis was felt to be secondary to bilateral pneumonia. Head CT showed no evidence of hemorrhage. Subsequent MRI brain showed [id number] cortical ischemia bilaterally at the temporal and parietal lobes. Neurology feels that the findings likely secondary to hypoperfusion from shock on admission. EEG showed moderate-severe cerebral dysfunction. Patient was seen by pulmonary, infectious disease and neurology consultation. Patient was treated empirically for herpes encephalitis with acyclovir which was later discontinued. Patient underwent lumbar puncture which revealed cryptococcal antigen negative, no pleocytosis and no other abnormalities. Patient was treated with IV antibiotics of meropenem for sepsis which was later discontinued when the blood cultures were found to be negative. Sputum culture revealed Zosyn resistant pseudomonas and Escherichia coli. Therefore, Patient also received inhaled tobramycin for presumptive tracheobronchitis. Patient was unable to be weaned off the ventilator. Therefore, surgical consultation was obtained for tracheostomy and PEG placement which was completed on 08/17/16. Patient had elevated FFP patient had elevated LFTs thought to be secondary to ischemic hepatitis from sepsis. Abdominal ultrasound revealed cholelithiasis without cholecystitis. Other complications during hospital stay included hyperglycemia which resolved with adjustments in Lantus insulin. Also, patient was noted to have a malar rash on the skin. Therefore, complement and double stranded DNA studies were completed and pending. Case management was consulted and arrangements were made to transfer the patient to LTAC. Dedicated discharge time 48 minutes. Disposition: [id number] ANOTHER TYPE [facility] Time spent for discharge: 48 - Discharge Diagnoses (1) Acute respiratory failure Status: Acute Qualifiers: Respiratory failure complication: hypoxia Qualified Code(s): J96.01 - Acute respiratory failure with hypoxia (2) Altered mental status Status: Acute Qualifiers: Altered mental status type: stupor Coma depth: C Coma timing: C Qualified Code(s): R40.1 - Stupor (3) Elevated LFTs Status: Acute (4) Endotracheally intubated Status: Acute (5) Toxic encephalopathy Status: Acute Core Measure Documentation - Palliative Care Palliative Care/ Comfort Measures: Not Applicable - Core Measures Any of the following diagnoses?: none Exam - Constitutional Vitals: Temp Pulse Resp BP Pulse Ox 98.7 F 130 H 24 124/65 100 08/21/16 08:00 08/21/16 08:00 08/21/16 08:00 08/21/16 08:00 08/21/16 08:00 General appearance: Present: no acute distress, well-nourished, other (trach) - EENT Eyes: Present: PERRL ENT: hearing intact, clear oral mucosa - Neck Neck: Present: supple, normal ROM - Respiratory Respiratory effort: normal Respiratory: bilateral: diminished, rhonchi - Cardiovascular Heart Sounds: Present: S1 & S2. Absent: rub, click - Extremities Extremities: pulses symmetrical, No edema Peripheral Pulses: within normal limits - Abdominal General gastrointestinal: Present: soft, non-tender, non-distended, normal bowel sounds Male genitourinary: Present: normal - Integumentary Integumentary: Present: clear, warm, dry - Musculoskeletal Musculoskeletal: gait normal, strength equal bilaterally - Psychiatric Psychiatric: appropriate mood/affect, intact judgment & insight - Neurologic Neurologic: CNII-XII intact, moves all extremities Plan Activity: advance as tolerated Weight Bearing Status: Non-Weight Bearing Diet: per dietitian instruction, other (tube feedings) Follow up with: PRIMARY CARE, [Primary Care Provider] - 3-5 Days BILLIE LEZAMA MD [Staff Physician] - 7 Days
[2016-08-21] MEDS: ASPIRIN PO SCH (11:32)
[2016-08-21] MEDS: LEVEMIR SUB-Q SCH (11:32)
[2016-08-21] MEDS: PEPCID PO SCH ×2 (11:32→22:06)
--- NOTE | 2016-08-21 19:08 | Progress Note ---
Assessment and Plan Imp: 1. s/p Sepsis 2. ? Tracheobronchitis s/p ABX 3. Hypoglycemia on admit -> metabolic encephalopathy 4. Acute respiratory failure, hypoxia 5. s/p Trach/PEG Rec: 1. ID signed off; monitor 2. Hold off on Scopolamine; may thicken/dry out secretions; repeat CXR; consider chest PT, mucolytics 3. PSV trials as tolerated 4. TFs, supportive 5. Monitor neuro status; no sedation 6. Await LTAC No family present CCT 31min Subjective Date of service: 08/21/16 Principal diagnosis: acute respiratory failure, encephalopathy Interval history: No events. Eyes open, not following commands, moves all extremities, tolerating PSV during daytime. Copious endotracheal secretions, white per RT. Active Medications Acetaminophen (Tylenol) 650 mg FEEDTUBE Q6H PRN PRN Reason: Pain, Mild (1-3) Last Admin: 08/10/16 02:27 Dose: 650 mg Lipase/Protease/Amylase (Pancre[address]tor Dr 10,500 Unit) 1 each FEEDTUBE PRN PRN PRN Reason: For Clogged Feeding Tube Aspirin (Aspirin) 325 mg PO QDAY [facility] Last Admin: 08/21/16 11:32 Dose: 325 mg Atorvastatin Calcium (Lipitor) 40 mg PO QHS [facility] Last Admin: 08/20/16 22:16 Dose: 40 mg Dextrose (D50w (25gm)) 25 gm IV PRN PRN PRN Reason: Hypoglycemia Last Admin: 08/17/16 03:18 Dose: 25 gm Enoxaparin Sodium (Lovenox) 40 mg SUB-Q QDAY@1000 [facility] Last Admin: 08/06/16 09:31 Dose: 40 mg Famotidine (Pepcid) 20 mg PO BID [facility] Last Admin: 08/21/16 11:32 Dose: 20 mg Hydralazine HCl (Apresoline) 20 mg IV Q4HR PRN PRN Reason: Blood Pressure Hydrophilic Ointment (Vaseline Lip Therapy) 1 applic TP Q2HR PRN PRN Reason: Dry Lips Last Admin: 08/12/16 23:22 Dose: 1 applic Insulin Detemir (Levemir) 55 units SUB-Q DAILY [facility] Last Admin: 08/21/16 11:32 Dose: 55 units Insulin Human Regular (Novolin R) 0 units SUB-Q Q4HR [facility] PRN Reason: Protocol Last Admin: 08/21/16 15:35 Dose: 6 units Multi-Ingred Cream/Lotion/Oil/Oint (Artificial Tears Ophth Oint) 1 applic OU Q4HR PRN PRN Reason: Dry Eye(s) Last Admin: 08/12/16 23:22 Dose: 1 applic Ondansetron HCl (Zofran) 4 mg IV Q8H PRN PRN Reason: N/V unrelieved by Reglan Simple Syrup (Simple Syrup) 15 ml FEEDTUBE PRN PRN PRN Reason: Hypoglycemia Simple Syrup (Simple Syrup) 30 ml FEEDTUBE PRN PRN PRN Reason: Hypoglycemia Sodium Bicarbonate (Sodium Bicarbonate) 325 mg FEEDTUBE PRN PRN PRN Reason: For Clogged Feeding Tube Sodium Chloride (Nacl 0.9% 500 Ml) 1 ml IV DIRECT SANIA Sterile Water (Water For Inj (Pf)) 10 ml IV PRN SANIA Last Admin: 08/19/16 10:07 Dose: 10 ml Objective Vital Signs - 12hr 08/21/16 08/21/16 08/21/16 07:44 08:00 09:00 Temperature 98.7 F Pulse Rate 130 H 140 H Respiratory 15 35 H Rate Blood Pressure 124/65 128/68 O2 Sat by Pulse 96 97 97 Oximetry O2 Sat by Pulse Oximetry [ Assessment] 08/21/16 08/21/16 08/21/16 10:00 11:00 12:00 Temperature 100.1 F H Pulse Rate 128 H 127 H 115 H Respiratory 33 H 33 H 28 H Rate Blood Pressure 122/66 122/66 115/68 O2 Sat by Pulse 94 97 98 Oximetry O2 Sat by Pulse Oximetry [ Assessment] 08/21/16 08/21/16 08/21/16 13:00 14:00 15:00 Temperature Pulse Rate 128 H 117 H 115 H Respiratory 32 H 29 H 14 Rate Blood Pressure 115/68 117/69 123/64 O2 Sat by Pulse 96 96 95 Oximetry O2 Sat by Pulse Oximetry [ Assessment] 08/21/16 08/21/16 08/21/16 16:00 16:26 17:00 Temperature 99.3 F Pulse Rate 107 H 112 H Respiratory 26 H 31 H Rate Blood Pressure 124/59 124/61 O2 Sat by Pulse 95 95 93 Oximetry O2 Sat by Pulse 95 Oximetry [ Assessment] Constitutional: other (trached, critically ill) Eyes: other (pupils are equal, very slowly reactive) ENT: other (trached) Neck: supple, no JVD Ascultation: Bilateral: rhonchi Cardiovascular: other (tachy, RR; no mrg) Gastrointestinal: normoactive bowel sounds, soft, non-tender, non-distended Integumentary: normal Extremities: no cyanosis, no edema Neurologic: non-focal exam Psychiatric: other (unable to assess) CBC and BMP: 08/21/16 07:00 08/21/16 07:00 ABG, PT/INR, D-dimer: ABG POC ABG pH 7.407 (7.35-7.45) 08/20/16 12:03 POC ABG pCO2 40.7 (35-45) 08/20/16 12:03 POC ABG pO2 81 (80-105) 08/20/16 12:03 POC ABG HCO3 25.6 08/20/16 12:03 POC ABG Total CO2 27 08/20/16 12:03 POC ABG O2 Sat 96 08/20/16 12:03 PT/INR, D-dimer PT 17.2 Sec. (12.2-14.9) H 08/07/16 07:30 INR 1.41 (0.87-1.13) H 08/07/16 07:30 Abnormal lab findings: Abnormal Labs 07/31/16 07/31/16 07/31/16 08:39 10:07 12:07 WBC RBC Hgb Hct MCV MCH MCHC RDW Plt Count Lymph % (Auto) [place] % (Auto) Lymph # [place] # Seg Neutrophils % Seg Neuts % (Manual) Lymphocytes % (Manual) Monocytes % (Manual) Nucleated RBC % Seg Neutrophils # Seg Neutrophils # Man Lymphocytes # (Manual) Monocytes # (Manual) PT INR APTT POC ABG pH POC ABG pCO2 POC ABG pO2 Sodium Potassium Chloride Carbon Dioxide BUN Creatinine Glucose POC Glucose 205 H 188 H Calcium AST ALT Alkaline Phosphatase Total Creatine Kinase 865 H CK-MB (CK-2) 5.9 H Total Protein Albumin 07/31/16 07/31/16 07/31/16 16:19 19:58 23:53 WBC RBC Hgb Hct MCV MCH MCHC RDW Plt Count Lymph % (Auto) [place] % (Auto) Lymph # [place] # Seg Neutrophils % Seg Neuts % (Manual) Lymphocytes % (Manual) Monocytes % (Manual) Nucleated RBC % Seg Neutrophils # Seg Neutrophils # Man Lymphocytes # (Manual) Monocytes # (Manual) PT INR APTT POC ABG pH POC ABG pCO2 POC ABG pO2 Sodium Potassium Chloride Carbon Dioxide BUN Creatinine Glucose POC Glucose 195 H 147 H 160 H Calcium AST ALT Alkaline Phosphatase Total Creatine Kinase CK-MB (CK-2) Total Protein Albumin 08/01/16 08/01/16 08/01/16 04:18 04:42 07:45 WBC 14.8 H RBC Hgb 10.7 L Hct 34.9 L MCV 82 L MCH 25 L MCHC 31 L RDW 19.1 H Plt Count Lymph % (Auto) [place] % (Auto) Lymph # [place] # Seg Neutrophils % Seg Neuts % (Manual) 80.0 H Lymphocytes % (Manual) 12.0 L Monocytes % (Manual) Nucleated RBC % Seg Neutrophils # Seg Neutrophils # Man 11.8 H Lymphocytes # (Manual) Monocytes # (Manual) PT INR APTT POC ABG pH POC ABG pCO2 33.4 L POC ABG pO2 66 L Sodium Potassium Chloride Carbon Dioxide BUN Creatinine Glucose POC Glucose 225 H Calcium AST ALT Alkaline Phosphatase Total Creatine Kinase CK-MB (CK-2) Total Protein Albumin 08/01/16 08/01/16 08/01/16 07:45 10:09 10:59 WBC RBC Hgb Hct MCV MCH MCHC RDW Plt Count Lymph % (Auto) [place] % (Auto) Lymph # [place] # Seg Neutrophils % Seg Neuts % (Manual) Lymphocytes % (Manual) Monocytes % (Manual) Nucleated RBC % Seg Neutrophils # Seg Neutrophils # Man Lymphocytes # (Manual) Monocytes # (Manual) PT INR APTT POC ABG pH POC ABG pCO2 POC ABG pO2 Sodium Potassium Chloride Carbon Dioxide BUN 29 H Creatinine Glucose 233 H POC Glucose 266 H 318 H Calcium 7.6 L AST ALT Alkaline Phosphatase Total Creatine Kinase CK-MB (CK-2) Total Protein Albumin 08/01/16 08/01/16 08/01/16 14:24 17:56 21:21 WBC RBC Hgb Hct MCV MCH MCHC RDW Plt Count Lymph % (Auto) [place] % (Auto) Lymph # [place] # Seg Neutrophils % Seg Neuts % (Manual) Lymphocytes % (Manual) Monocytes % (Manual) Nucleated RBC % Seg Neutrophils # Seg Neutrophils # Man Lymphocytes # (Manual) Monocytes # (Manual) PT INR APTT POC ABG pH POC ABG pCO2 POC ABG pO2 Sodium Potassium Chloride Carbon Dioxide BUN Creatinine Glucose POC Glucose 298 H 239 H 203 H Calcium AST ALT Alkaline Phosphatase Total Creatine Kinase CK-MB (CK-2) Total Protein Albumin 08/02/16 08/02/16 08/02/16 02:05 03:55 05:38 WBC RBC Hgb Hct MCV MCH MCHC RDW Plt Count Lymph % (Auto) [place] % (Auto) Lymph # [place] # Seg Neutrophils % Seg Neuts % (Manual) Lymphocytes % (Manual) Monocytes % (Manual) Nucleated RBC % Seg Neutrophils # Seg Neutrophils # Man Lymphocytes # (Manual) Monocytes # (Manual) PT INR APTT POC ABG pH 7.460 H POC ABG pCO2 31.2 L POC ABG pO2 71 L Sodium Potassium Chloride Carbon Dioxide BUN Creatinine Glucose POC Glucose 248 H 253 H Calcium AST ALT Alkaline Phosphatase Total Creatine Kinase CK-MB (CK-2) Total Protein Albumin 08/02/16 08/02/16 08/02/16 09:11 09:44 09:44 WBC RBC 3.62 L Hgb 9.4 L Hct 29.1 L MCV 80 L MCH 26 L MCHC RDW 18.7 H Plt Count Lymph % (Auto) [place] % (Auto) 9.2 H Lymph # [place] # 1.0 H Seg Neutrophils % 72.0 H Seg Neuts % (Manual) Lymphocytes % (Manual) Monocytes % (Manual) Nucleated RBC % Seg Neutrophils # Seg Neutrophils # Man Lymphocytes # (Manual) Monocytes # (Manual) PT INR APTT POC ABG pH POC ABG pCO2 POC ABG pO2 Sodium 135 L Potassium Chloride Carbon Dioxide 21 L BUN 42 H Creatinine Glucose 248 H POC Glucose 306 H Calcium 7.6 L AST ALT Alkaline Phosphatase Total Creatine Kinase CK-MB (CK-2) Total Protein Albumin 08/02/16 08/02/16 08/02/16 15:53 17:33 21:39 WBC RBC Hgb Hct MCV MCH MCHC RDW Plt Count Lymph % (Auto) [place] % (Auto) Lymph # [place] # Seg Neutrophils % Seg Neuts % (Manual) Lymphocytes % (Manual) Monocytes % (Manual) Nucleated RBC % Seg Neutrophils # Seg Neutrophils # Man Lymphocytes # (Manual) Monocytes # (Manual) PT INR APTT POC ABG pH POC ABG pCO2 POC ABG pO2 Sodium Potassium Chloride Carbon Dioxide BUN Creatinine Glucose POC Glucose 205 H 250 H 282 H Calcium AST ALT Alkaline Phosphatase Total Creatine Kinase CK-MB (CK-2) Total Protein Albumin 08/03/16 08/03/16 08/03/16 02:28 05:47 07:05 WBC RBC 3.32 L Hgb 8.4 L Hct 26.5 L MCV 80 L MCH 25 L MCHC RDW 18.7 H Plt Count 112 L Lymph % (Auto) 12.5 L [place] % (Auto) 10.2 H Lymph # 1.0 L [place] # Seg Neutrophils % 75.9 H Seg Neuts % (Manual) Lymphocytes % (Manual) Monocytes % (Manual) Nucleated RBC % Seg Neutrophils # Seg Neutrophils # Man Lymphocytes # (Manual) Monocytes # (Manual) PT INR APTT POC ABG pH POC ABG pCO2 POC ABG pO2 Sodium Potassium Chloride Carbon Dioxide BUN Creatinine Glucose POC Glucose 317 H 253 H Calcium AST ALT Alkaline Phosphatase Total Creatine Kinase CK-MB (CK-2) Total Protein Albumin 08/03/16 08/03/16 08/03/16 07:05 09:50 14:07 WBC RBC Hgb Hct MCV MCH MCHC RDW Plt Count Lymph % (Auto) [place] % (Auto) Lymph # [place] # Seg Neutrophils % Seg Neuts % (Manual) Lymphocytes % (Manual) Monocytes % (Manual) Nucleated RBC % Seg Neutrophils # Seg Neutrophils # Man Lymphocytes # (Manual) Monocytes # (Manual) PT INR APTT POC ABG pH POC ABG pCO2 POC ABG pO2 Sodium 132 L Potassium Chloride Carbon Dioxide 20 L BUN 42 H Creatinine Glucose 243 H POC Glucose 332 H 345 H Calcium 6.8 L AST ALT Alkaline Phosphatase Total Creatine Kinase CK-MB (CK-2) Total Protein Albumin 08/03/16 08/03/16 08/04/16 17:38 21:36 02:18 WBC RBC Hgb Hct MCV MCH MCHC RDW Plt Count Lymph % (Auto) [place] % (Auto) Lymph # [place] # Seg Neutrophils % Seg Neuts % (Manual) Lymphocytes % (Manual) Monocytes % (Manual) Nucleated RBC % Seg Neutrophils # Seg Neutrophils # Man Lymphocytes # (Manual) Monocytes # (Manual) PT INR APTT POC ABG pH POC ABG pCO2 POC ABG pO2 Sodium Potassium Chloride Carbon Dioxide BUN Creatinine Glucose POC Glucose 262 H 260 H 256 H Calcium AST ALT Alkaline Phosphatase Total Creatine Kinase CK-MB (CK-2) Total Protein Albumin 08/04/16 08/04/16 08/04/16 05:41 06:00 10:20 WBC RBC Hgb Hct MCV MCH MCHC RDW Plt Count Lymph % (Auto) [place] % (Auto) Lymph # [place] # Seg Neutrophils % Seg Neuts % (Manual) Lymphocytes % (Manual) Monocytes % (Manual) Nucleated RBC % Seg Neutrophils # Seg Neutrophils # Man Lymphocytes # (Manual) Monocytes # (Manual) PT INR APTT POC ABG pH POC ABG pCO2 POC ABG pO2 Sodium Potassium Chloride Carbon Dioxide BUN 34 H Creatinine 0.7 L Glucose 237 H POC Glucose 265 H 266 H Calcium 7.9 L D AST ALT Alkaline Phosphatase Total Creatine Kinase CK-MB (CK-2) Total Protein Albumin 08/04/16 08/04/16 08/04/16 14:20 17:31 21:52 WBC RBC Hgb Hct MCV MCH MCHC RDW Plt Count Lymph % (Auto) [place] % (Auto) Lymph # [place] # Seg Neutrophils % Seg Neuts % (Manual) Lymphocytes % (Manual) Monocytes % (Manual) Nucleated RBC % Seg Neutrophils # Seg Neutrophils # Man Lymphocytes # (Manual) Monocytes # (Manual) PT INR APTT POC ABG pH POC ABG pCO2 POC ABG pO2 Sodium Potassium Chloride Carbon Dioxide BUN Creatinine Glucose POC Glucose 302 H 337 H 340 H Calcium AST ALT Alkaline Phosphatase Total Creatine Kinase CK-MB (CK-2) Total Protein Albumin 08/05/16 08/05/16 08/05/16 01:43 05:00 05:00 WBC RBC Hgb 9.5 L Hct 30.1 L MCV 81 L MCH 26 L MCHC RDW 19.1 H Plt Count 112 L Lymph % (Auto) [place] % (Auto) Lymph # [place] # Seg Neutrophils % Seg Neuts % (Manual) Lymphocytes % (Manual) Monocytes % (Manual) Nucleated RBC % Seg Neutrophils # Seg Neutrophils # Man Lymphocytes # (Manual) Monocytes # (Manual) PT INR APTT POC ABG pH POC ABG pCO2 POC ABG pO2 Sodium Potassium Chloride Carbon Dioxide BUN 27 H Creatinine 0.7 L Glucose 212 H POC Glucose 247 H Calcium 8.3 L AST 92 H ALT 81 H Alkaline Phosphatase 629 H Total Creatine Kinase CK-MB (CK-2) Total Protein 5.9 L Albumin 2.2 L 08/05/16 08/05/1617 05:14 05:19 10:12 WBC RBC Hgb Hct MCV MCH MCHC RDW Plt Count Lymph % (Auto) [place] % (Auto) Lymph # [place] # Seg Neutrophils % Seg Neuts % (Manual) Lymphocytes % (Manual) Monocytes % (Manual) Nucleated RBC % Seg Neutrophils # Seg Neutrophils # Man Lymphocytes # (Manual) Monocytes # (Manual) PT INR APTT POC ABG pH 7.469 H POC ABG pCO2 POC ABG pO2 109 H Sodium Potassium Chloride Carbon Dioxide BUN Creatinine Glucose POC Glucose 208 H 206 H Calcium AST ALT Alkaline Phosphatase Total Creatine Kinase CK-MB (CK-2) Total Protein Albumin 08/05/16 08/05/16 08/05/16 13:54 18:31 22:06 WBC RBC Hgb Hct MCV MCH MCHC RDW Plt Count Lymph % (Auto) [place] % (Auto) Lymph # [place] # Seg Neutrophils % Seg Neuts % (Manual) Lymphocytes % (Manual) Monocytes % (Manual) Nucleated RBC % Seg Neutrophils # Seg Neutrophils # Man Lymphocytes # (Manual) Monocytes # (Manual) PT INR APTT POC ABG pH POC ABG pCO2 POC ABG pO2 Sodium Potassium Chloride Carbon Dioxide BUN Creatinine Glucose POC Glucose 226 H 229 H 245 H Calcium AST ALT Alkaline Phosphatase Total Creatine Kinase CK-MB (CK-2) Total Protein Albumin 08/06/16 08/06/16 08/06/16 02:03 05:31 05:42 WBC RBC Hgb Hct MCV MCH MCHC RDW Plt Count Lymph % (Auto) [place] % (Auto) Lymph # [place] # Seg Neutrophils % Seg Neuts % (Manual) Lymphocytes % (Manual) Monocytes % (Manual) Nucleated RBC % Seg Neutrophils # Seg Neutrophils # Man Lymphocytes # (Manual) Monocytes # (Manual) PT INR APTT POC ABG pH POC ABG pCO2 POC ABG pO2 62 L Sodium Potassium Chloride Carbon Dioxide BUN Creatinine Glucose POC Glucose 237 H 205 H Calcium AST ALT Alkaline Phosphatase Total Creatine Kinase CK-MB (CK-2) Total Protein Albumin 08/06/16 08/06/16 08/06/16 09:36 11:30 14:23 WBC RBC Hgb Hct MCV MCH MCHC RDW Plt Count Lymph % (Auto) [place] % (Auto) Lymph # [place] # Seg Neutrophils % Seg Neuts % (Manual) Lymphocytes % (Manual) Monocytes % (Manual) Nucleated RBC % Seg Neutrophils # Seg Neutrophils # Man Lymphocytes # (Manual) Monocytes # (Manual) PT 18.9 H INR 1.59 H APTT 39.7 H POC ABG pH POC ABG pCO2 POC ABG pO2 Sodium Potassium Chloride Carbon Dioxide BUN Creatinine Glucose POC Glucose 279 H 264 H Calcium AST ALT Alkaline Phosphatase Total Creatine Kinase CK-MB (CK-2) Total Protein Albumin 08/06/16 08/07/16 08/07/16 18:07 03:01 05:18 WBC RBC Hgb Hct MCV MCH MCHC RDW Plt Count Lymph % (Auto) [place] % (Auto) Lymph # [place] # Seg Neutrophils % Seg Neuts % (Manual) Lymphocytes % (Manual) Monocytes % (Manual) Nucleated RBC % Seg Neutrophils # Seg Neutrophils # Man Lymphocytes # (Manual) Monocytes # (Manual) PT INR APTT POC ABG pH 7.459 H POC ABG pCO2 POC ABG pO2 Sodium Potassium Chloride Carbon Dioxide BUN Creatinine Glucose POC Glucose 176 H 172 H Calcium AST ALT Alkaline Phosphatase Total Creatine Kinase CK-MB (CK-2) Total Protein Albumin 08/07/16 08/07/16 08/07/16 05:32 07:30 07:30 WBC RBC 3.39 L Hgb 8.6 L Hct 27.2 L MCV 80 L MCH 25 L MCHC RDW 19.1 H Plt Count 136 L Lymph % (Auto) [place] % (Auto) Lymph # [place] # Seg Neutrophils % Seg Neuts % (Manual) 84.0 H Lymphocytes % (Manual) 4.0 L Monocytes % (Manual) 8.0 H Nucleated RBC % Seg Neutrophils # Seg Neutrophils # Man 8.2 H Lymphocytes # (Manual) 0.4 L Monocytes # (Manual) PT 17.2 H INR 1.41 H APTT POC ABG pH POC ABG pCO2 POC ABG pO2 Sodium Potassium Chloride Carbon Dioxide BUN Creatinine Glucose POC Glucose 204 H Calcium AST ALT Alkaline Phosphatase Total Creatine Kinase CK-MB (CK-2) Total Protein Albumin 08/07/16 08/07/16 08/07/16 07:30 10:03 14:35 WBC RBC Hgb Hct MCV MCH MCHC RDW Plt Count Lymph % (Auto) [place] % (Auto) Lymph # [place] # Seg Neutrophils % Seg Neuts % (Manual) Lymphocytes % (Manual) Monocytes % (Manual) Nucleated RBC % Seg Neutrophils # Seg Neutrophils # Man Lymphocytes # (Manual) Monocytes # (Manual) PT INR APTT POC ABG pH POC ABG pCO2 POC ABG pO2 Sodium Potassium Chloride Carbon Dioxide BUN 27 H Creatinine 0.7 L Glucose 201 H POC Glucose 233 H 255 H Calcium 7.9 L AST 73 H ALT 74 H Alkaline Phosphatase 595 H Total Creatine Kinase CK-MB (CK-2) Total Protein 5.1 L Albumin 1.8 L 08/07/16 08/07/16 08/08/16 16:09 22:01 01:27 WBC RBC Hgb Hct MCV MCH MCHC RDW Plt Count Lymph % (Auto) [place] % (Auto) Lymph # [place] # Seg Neutrophils % Seg Neuts % (Manual) Lymphocytes % (Manual) Monocytes % (Manual) Nucleated RBC % Seg Neutrophils # Seg Neutrophils # Man Lymphocytes # (Manual) Monocytes # (Manual) PT INR APTT POC ABG pH POC ABG pCO2 POC ABG pO2 Sodium Potassium Chloride Carbon Dioxide BUN Creatinine Glucose POC Glucose 259 H 255 H 252 H Calcium AST ALT Alkaline Phosphatase Total Creatine Kinase CK-MB (CK-2) Total Protein Albumin 08/08/16 08/08/16 08/08/16 05:13 06:23 07:40 WBC RBC 3.36 L Hgb 8.5 L Hct 27.1 L MCV 81 L MCH 25 L MCHC 31 L RDW 18.8 H Plt Count 129 L Lymph % (Auto) [place] % (Auto) Lymph # [place] # Seg Neutrophils % Seg Neuts % (Manual) Lymphocytes % (Manual) Monocytes % (Manual) Nucleated RBC % 2.0 H Seg Neutrophils # Seg Neutrophils # Man Lymphocytes # (Manual) Monocytes # (Manual) PT INR APTT POC ABG pH 7.460 H POC ABG pCO2 POC ABG pO2 74 L Sodium Potassium Chloride Carbon Dioxide BUN Creatinine Glucose POC Glucose 264 H Calcium AST ALT Alkaline Phosphatase Total Creatine Kinase CK-MB (CK-2) Total Protein Albumin 08/08/16 08/08/16 08/08/16 07:40 10:01 15:00 WBC RBC Hgb Hct MCV MCH MCHC RDW Plt Count Lymph % (Auto) [place] % (Auto) Lymph # [place] # Seg Neutrophils % Seg Neuts % (Manual) Lymphocytes % (Manual) Monocytes % (Manual) Nucleated RBC % Seg Neutrophils # Seg Neutrophils # Man Lymphocytes # (Manual) Monocytes # (Manual) PT INR APTT POC ABG pH POC ABG pCO2 POC ABG pO2 Sodium Potassium Chloride Carbon Dioxide BUN 26 H Creatinine 0.7 L Glucose 233 H POC Glucose 271 H 275 H Calcium 7.6 L AST 77 H ALT 71 H Alkaline Phosphatase 658 H Total Creatine Kinase CK-MB (CK-2) Total Protein 5.0 L Albumin 1.6 L 08/08/16 08/08/16 08/08/16 17:28 21:32 23:53 WBC RBC Hgb Hct MCV MCH MCHC RDW Plt Count Lymph % (Auto) [place] % (Auto) Lymph # [place] # Seg Neutrophils % Seg Neuts % (Manual) Lymphocytes % (Manual) Monocytes % (Manual) Nucleated RBC % Seg Neutrophils # Seg Neutrophils # Man Lymphocytes # (Manual) Monocytes # (Manual) PT INR APTT POC ABG pH POC ABG pCO2 POC ABG pO2 Sodium Potassium Chloride Carbon Dioxide BUN Creatinine Glucose POC Glucose 275 H 252 H 246 H Calcium AST ALT Alkaline Phosphatase Total Creatine Kinase CK-MB (CK-2) Total Protein Albumin 08/09/16 08/09/16 08/09/16 03:32 05:00 05:00 WBC RBC 3.34 L Hgb 8.3 L Hct 26.7 L MCV 80 L MCH 25 L MCHC 31 L RDW 18.5 H Plt Count Lymph % (Auto) [place] % (Auto) Lymph # [place] # Seg Neutrophils % Seg Neuts % (Manual) Lymphocytes % (Manual) Monocytes % (Manual) Nucleated RBC % Seg Neutrophils # Seg Neutrophils # Man Lymphocytes # (Manual) Monocytes # (Manual) PT INR APTT POC ABG pH POC ABG pCO2 POC ABG pO2 Sodium Potassium Chloride Carbon Dioxide BUN 25 H Creatinine 0.5 L Glucose 230 H POC Glucose 260 H Calcium 7.6 L AST ALT Alkaline Phosphatase Total Creatine Kinase CK-MB (CK-2) Total Protein Albumin 08/09/16 08/09/16 08/09/16 06:00 10:07 14:07 WBC RBC Hgb Hct MCV MCH MCHC RDW Plt Count Lymph % (Auto) [place] % (Auto) Lymph # [place] # Seg Neutrophils % Seg Neuts % (Manual) Lymphocytes % (Manual) Monocytes % (Manual) Nucleated RBC % Seg Neutrophils # Seg Neutrophils # Man Lymphocytes # (Manual) Monocytes # (Manual) PT INR APTT POC ABG pH 7.493 H POC ABG pCO2 POC ABG pO2 Sodium Potassium Chloride Carbon Dioxide BUN Creatinine Glucose POC Glucose 216 H 220 H Calcium AST ALT Alkaline Phosphatase Total Creatine Kinase CK-MB (CK-2) Total Protein Albumin 08/09/16 08/09/16 08/10/16 16:55 21:07 02:09 WBC RBC Hgb Hct MCV MCH MCHC RDW Plt Count Lymph % (Auto) [place] % (Auto) Lymph # [place] # Seg Neutrophils % Seg Neuts % (Manual) Lymphocytes % (Manual) Monocytes % (Manual) Nucleated RBC % Seg Neutrophils # Seg Neutrophils # Man Lymphocytes # (Manual) Monocytes # (Manual) PT INR APTT POC ABG pH POC ABG pCO2 POC ABG pO2 Sodium Potassium Chloride Carbon Dioxide BUN Creatinine Glucose POC Glucose 242 H 235 H 228 H Calcium AST ALT Alkaline Phosphatase Total Creatine Kinase CK-MB (CK-2) Total Protein Albumin 08/10/16 08/10/16 08/10/16 05:31 09:06 13:45 WBC RBC Hgb Hct MCV MCH MCHC RDW Plt Count Lymph % (Auto) [place] % (Auto) Lymph # [place] # Seg Neutrophils % Seg Neuts % (Manual) Lymphocytes % (Manual) Monocytes % (Manual) Nucleated RBC % Seg Neutrophils # Seg Neutrophils # Man Lymphocytes # (Manual) Monocytes # (Manual) PT INR APTT POC ABG pH POC ABG pCO2 POC ABG pO2 Sodium Potassium Chloride Carbon Dioxide BUN Creatinine Glucose POC Glucose 201 H 229 H 274 H Calcium AST ALT Alkaline Phosphatase Total Creatine Kinase CK-MB (CK-2) Total Protein Albumin 08/10/16 08/10/16 08/10/16 17:53 21:43 Unknown WBC RBC 3.42 L Hgb 8.6 L Hct 27.5 L MCV 80 L MCH 25 L MCHC RDW 19.1 H Plt Count Lymph % (Auto) [place] % (Auto) Lymph # [place] # Seg Neutrophils % Seg Neuts % (Manual) Lymphocytes % (Manual) Monocytes % (Manual) Nucleated RBC % Seg Neutrophils # Seg Neutrophils # Man Lymphocytes # (Manual) Monocytes # (Manual) PT INR APTT POC ABG pH POC ABG pCO2 POC ABG pO2 Sodium Potassium Chloride Carbon Dioxide BUN Creatinine Glucose POC Glucose 284 H 328 H Calcium AST ALT Alkaline Phosphatase Total Creatine Kinase CK-MB (CK-2) Total Protein Albumin 08/10/16 08/11/16 08/11/16 Unknown 01:37 05:39 WBC RBC Hgb Hct MCV MCH MCHC RDW Plt Count Lymph % (Auto) [place] % (Auto) Lymph # [place] # Seg Neutrophils % Seg Neuts % (Manual) Lymphocytes % (Manual) Monocytes % (Manual) Nucleated RBC % Seg Neutrophils # Seg Neutrophils # Man Lymphocytes # (Manual) Monocytes # (Manual) PT INR APTT POC ABG pH POC ABG pCO2 POC ABG pO2 Sodium Potassium Chloride Carbon Dioxide BUN 27 H Creatinine 0.6 L Glucose 211 H POC Glucose 340 H 323 H Calcium 7.8 L AST ALT Alkaline Phosphatase Total Creatine Kinase CK-MB (CK-2) Total Protein Albumin 08/11/16 08/11/16 08/11/16 09:58 15:22 17:41 WBC RBC Hgb Hct MCV MCH MCHC RDW Plt Count Lymph % (Auto) [place] % (Auto) Lymph # [place] # Seg Neutrophils % Seg Neuts % (Manual) Lymphocytes % (Manual) Monocytes % (Manual) Nucleated RBC % Seg Neutrophils # Seg Neutrophils # Man Lymphocytes # (Manual) Monocytes # (Manual) PT INR APTT POC ABG pH POC ABG pCO2 POC ABG pO2 Sodium Potassium Chloride Carbon Dioxide BUN Creatinine Glucose POC Glucose 295 H 210 H 164 H Calcium AST ALT Alkaline Phosphatase Total Creatine Kinase CK-MB (CK-2) Total Protein Albumin 08/11/16 08/12/16 08/12/16 21:53 01:56 05:15 WBC RBC Hgb Hct MCV MCH MCHC RDW Plt Count Lymph % (Auto) [place] % (Auto) Lymph # [place] # Seg Neutrophils % Seg Neuts % (Manual) Lymphocytes % (Manual) Monocytes % (Manual) Nucleated RBC % Seg Neutrophils # Seg Neutrophils # Man Lymphocytes # (Manual) Monocytes # (Manual) PT INR APTT POC ABG pH POC ABG pCO2 POC ABG pO2 Sodium Potassium Chloride Carbon Dioxide BUN Creatinine Glucose POC Glucose 171 H 205 H 156 H Calcium AST ALT Alkaline Phosphatase Total Creatine Kinase CK-MB (CK-2) Total Protein Albumin 08/12/16 08/12/16 08/12/16 10:10 14:33 17:53 WBC RBC Hgb Hct MCV MCH MCHC RDW Plt Count Lymph % (Auto) [place] % (Auto) Lymph # [place] # Seg Neutrophils % Seg Neuts % (Manual) Lymphocytes % (Manual) Monocytes % (Manual) Nucleated RBC % Seg Neutrophils # Seg Neutrophils # Man Lymphocytes # (Manual) Monocytes # (Manual) PT INR APTT POC ABG pH POC ABG pCO2 POC ABG pO2 Sodium Potassium Chloride Carbon Dioxide BUN Creatinine Glucose POC Glucose 224 H 245 H 259 H Calcium AST ALT Alkaline Phosphatase Total Creatine Kinase CK-MB (CK-2) Total Protein Albumin 08/12/16 08/13/16 08/13/16 21:56 04:00 04:02 WBC RBC Hgb Hct MCV MCH MCHC RDW Plt Count Lymph % (Auto) [place] % (Auto) Lymph # [place] # Seg Neutrophils % Seg Neuts % (Manual) Lymphocytes % (Manual) Monocytes % (Manual) Nucleated RBC % Seg Neutrophils # Seg Neutrophils # Man Lymphocytes # (Manual) Monocytes # (Manual) PT INR APTT POC ABG pH POC ABG pCO2 POC ABG pO2 Sodium 136 L Potassium Chloride 97.2 L Carbon Dioxide BUN 26 H Creatinine 0.6 L Glucose 185 H POC Glucose 229 H 202 H Calcium 7.3 L AST ALT Alkaline Phosphatase Total Creatine Kinase CK-MB (CK-2) Total Protein Albumin 08/13/16 08/13/16 08/13/16 06:47 09:53 13:40 WBC RBC Hgb Hct MCV MCH MCHC RDW Plt Count Lymph % (Auto) [place] % (Auto) Lymph # [place] # Seg Neutrophils % Seg Neuts % (Manual) Lymphocytes % (Manual) Monocytes % (Manual) Nucleated RBC % Seg Neutrophils # Seg Neutrophils # Man Lymphocytes # (Manual) Monocytes # (Manual) PT INR APTT POC ABG pH POC ABG pCO2 POC ABG pO2 Sodium Potassium Chloride Carbon Dioxide BUN Creatinine Glucose POC Glucose 191 H 221 H 225 H Calcium AST ALT Alkaline Phosphatase Total Creatine Kinase CK-MB (CK-2) Total Protein Albumin 08/13/16 08/13/16 08/13/16 17:07 21:09 Unknown WBC RBC 3.53 L Hgb 8.9 L Hct 28.4 L MCV 81 L MCH 25 L MCHC 31 L RDW 19.2 H Plt Count Lymph % (Auto) [place] % (Auto) Lymph # [place] # Seg Neutrophils % Seg Neuts % (Manual) Lymphocytes % (Manual) Monocytes % (Manual) Nucleated RBC % Seg Neutrophils # Seg Neutrophils # Man Lymphocytes # (Manual) Monocytes # (Manual) PT INR APTT POC ABG pH POC ABG pCO2 POC ABG pO2 Sodium Potassium Chloride Carbon Dioxide BUN Creatinine Glucose POC Glucose 232 H 166 H Calcium AST ALT Alkaline Phosphatase Total Creatine Kinase CK-MB (CK-2) Total Protein Albumin 08/14/16 08/14/16 08/14/16 01:42 05:16 08:57 WBC RBC Hgb Hct MCV MCH MCHC RDW Plt Count Lymph % (Auto) [place] % (Auto) Lymph # [place] # Seg Neutrophils % Seg Neuts % (Manual) Lymphocytes % (Manual) Monocytes % (Manual) Nucleated RBC % Seg Neutrophils # Seg Neutrophils # Man Lymphocytes # (Manual) Monocytes # (Manual) PT INR APTT POC ABG pH POC ABG pCO2 POC ABG pO2 Sodium Potassium Chloride Carbon Dioxide BUN Creatinine Glucose POC Glucose 172 H 182 H 233 H Calcium AST ALT Alkaline Phosphatase Total Creatine Kinase CK-MB (CK-2) Total Protein Albumin 08/14/16 08/14/16 08/14/16 11:30 14:09 17:48 WBC RBC Hgb Hct MCV MCH MCHC RDW Plt Count Lymph % (Auto) [place] % (Auto) Lymph # [place] # Seg Neutrophils % Seg Neuts % (Manual) Lymphocytes % (Manual) Monocytes % (Manual) Nucleated RBC % Seg Neutrophils # Seg Neutrophils # Man Lymphocytes # (Manual) Monocytes # (Manual) PT INR APTT POC ABG pH POC ABG pCO2 POC ABG pO2 Sodium 135 L Potassium Chloride 97.0 L Carbon Dioxide BUN 31 H Creatinine 0.7 L Glucose 271 H POC Glucose 302 H 260 H Calcium 7.4 L AST 86 H ALT 79 H Alkaline Phosphatase 1015 H Total Creatine Kinase CK-MB (CK-2) Total Protein 6.1 L Albumin 2.1 L 08/14/16 08/15/16 08/15/16 22:26 01:58 04:55 WBC RBC Hgb 9.1 L Hct 28.8 L MCV 79 L MCH 25 L MCHC RDW 19.1 H Plt Count Lymph % (Auto) [place] % (Auto) Lymph # [place] # Seg Neutrophils % Seg Neuts % (Manual) Lymphocytes % (Manual) Monocytes % (Manual) Nucleated RBC % Seg Neutrophils # Seg Neutrophils # Man Lymphocytes # (Manual) Monocytes # (Manual) PT INR APTT POC ABG pH POC ABG pCO2 POC ABG pO2 Sodium Potassium Chloride Carbon Dioxide BUN Creatinine Glucose POC Glucose 188 H 200 H Calcium AST ALT Alkaline Phosphatase Total Creatine Kinase CK-MB (CK-2) Total Protein Albumin 08/15/16 08/15/16 08/15/16 04:55 09:43 13:06 WBC RBC Hgb Hct MCV MCH MCHC RDW Plt Count Lymph % (Auto) [place] % (Auto) Lymph # [place] # Seg Neutrophils % Seg Neuts % (Manual) Lymphocytes % (Manual) Monocytes % (Manual) Nucleated RBC % Seg Neutrophils # Seg Neutrophils # Man Lymphocytes # (Manual) Monocytes # (Manual) PT INR APTT POC ABG pH POC ABG pCO2 POC ABG pO2 Sodium 133 L Potassium Chloride 96.2 L Carbon Dioxide BUN 35 H Creatinine 0.6 L Glucose 168 H POC Glucose 253 H 196 H Calcium 7.6 L AST 87 H ALT 77 H Alkaline Phosphatase 1075 H Total Creatine Kinase CK-MB (CK-2) Total Protein 6.2 L Albumin 2.2 L 08/15/16 08/15/16 08/16/16 17:13 21:27 02:00 WBC RBC Hgb Hct MCV MCH MCHC RDW Plt Count Lymph % (Auto) [place] % (Auto) Lymph # [place] # Seg Neutrophils % Seg Neuts % (Manual) Lymphocytes % (Manual) Monocytes % (Manual) Nucleated RBC % Seg Neutrophils # Seg Neutrophils # Man Lymphocytes # (Manual) Monocytes # (Manual) PT INR APTT POC ABG pH POC ABG pCO2 POC ABG pO2 Sodium Potassium Chloride Carbon Dioxide BUN Creatinine Glucose POC Glucose 152 H 119 H 171 H Calcium AST ALT Alkaline Phosphatase Total Creatine Kinase CK-MB (CK-2) Total Protein Albumin 08/16/16 08/16/16 08/16/16 05:29 06:00 06:00 WBC 11.2 H RBC Hgb 9.6 L Hct 30.8 L MCV 79 L MCH 25 L MCHC 31 L RDW 19.2 H Plt Count Lymph % (Auto) [place] % (Auto) Lymph # [place] # Seg Neutrophils % Seg Neuts % (Manual) 83.0 H Lymphocytes % (Manual) 12.0 L Monocytes % (Manual) Nucleated RBC % Seg Neutrophils # Seg Neutrophils # Man 9.3 H Lymphocytes # (Manual) Monocytes # (Manual) PT INR APTT POC ABG pH POC ABG pCO2 POC ABG pO2 Sodium Potassium Chloride Carbon Dioxide BUN 30 H Creatinine 0.6 L Glucose 136 H POC Glucose 164 H Calcium 7.5 L AST ALT Alkaline Phosphatase Total Creatine Kinase CK-MB (CK-2) Total Protein Albumin 08/16/16 08/16/16 08/16/16 09:31 13:27 17:28 WBC RBC Hgb Hct MCV MCH MCHC RDW Plt Count Lymph % (Auto) [place] % (Auto) Lymph # [place] # Seg Neutrophils % Seg Neuts % (Manual) Lymphocytes % (Manual) Monocytes % (Manual) Nucleated RBC % Seg Neutrophils # Seg Neutrophils # Man Lymphocytes # (Manual) Monocytes # (Manual) PT INR APTT POC ABG pH POC ABG pCO2 POC ABG pO2 Sodium Potassium Chloride Carbon Dioxide BUN Creatinine Glucose POC Glucose 270 H 217 H 227 H Calcium AST ALT Alkaline Phosphatase Total Creatine Kinase CK-MB (CK-2) Total Protein Albumin 08/16/16 08/17/16 08/17/16 21:32 05:50 09:55 WBC RBC Hgb Hct MCV MCH MCHC RDW Plt Count Lymph % (Auto) [place] % (Auto) Lymph # [place] # Seg Neutrophils % Seg Neuts % (Manual) Lymphocytes % (Manual) Monocytes % (Manual) Nucleated RBC % Seg Neutrophils # Seg Neutrophils # Man Lymphocytes # (Manual) Monocytes # (Manual) PT INR APTT POC ABG pH POC ABG pCO2 POC ABG pO2 Sodium Potassium Chloride Carbon Dioxide BUN Creatinine Glucose POC Glucose 186 H 131 H 170 H Calcium AST ALT Alkaline Phosphatase Total Creatine Kinase CK-MB (CK-2) Total Protein Albumin 08/17/16 08/17/16 08/18/16 17:21 21:56 02:02 WBC RBC Hgb Hct MCV MCH MCHC RDW Plt Count Lymph % (Auto) [place] % (Auto) Lymph # [place] # Seg Neutrophils % Seg Neuts % (Manual) Lymphocytes % (Manual) Monocytes % (Manual) Nucleated RBC % Seg Neutrophils # Seg Neutrophils # Man Lymphocytes # (Manual) Monocytes # (Manual) PT INR APTT POC ABG pH POC ABG pCO2 POC ABG pO2 Sodium Potassium Chloride Carbon Dioxide BUN Creatinine Glucose POC Glucose 190 H 207 H 170 H Calcium AST ALT Alkaline Phosphatase Total Creatine Kinase CK-MB (CK-2) Total Protein Albumin 08/18/16 08/18/16 08/18/16 05:22 10:16 14:19 WBC RBC Hgb Hct MCV MCH MCHC RDW Plt Count Lymph % (Auto) [place] % (Auto) Lymph # [place] # Seg Neutrophils % Seg Neuts % (Manual) Lymphocytes % (Manual) Monocytes % (Manual) Nucleated RBC % Seg Neutrophils # Seg Neutrophils # Man Lymphocytes # (Manual) Monocytes # (Manual) PT INR APTT POC ABG pH POC ABG pCO2 POC ABG pO2 Sodium Potassium Chloride Carbon Dioxide BUN Creatinine Glucose POC Glucose 173 H 200 H 215 H Calcium AST ALT Alkaline Phosphatase Total Creatine Kinase CK-MB (CK-2) Total Protein Albumin 08/18/16 08/18/16 08/19/16 18:40 21:31 01:59 WBC RBC Hgb Hct MCV MCH MCHC RDW Plt Count Lymph % (Auto) [place] % (Auto) Lymph # [place] # Seg Neutrophils % Seg Neuts % (Manual) Lymphocytes % (Manual) Monocytes % (Manual) Nucleated RBC % Seg Neutrophils # Seg Neutrophils # Man Lymphocytes # (Manual) Monocytes # (Manual) PT INR APTT POC ABG pH POC ABG pCO2 POC ABG pO2 Sodium Potassium Chloride Carbon Dioxide BUN Creatinine Glucose POC Glucose 245 H 277 H 269 H Calcium AST ALT Alkaline Phosphatase Total Creatine Kinase CK-MB (CK-2) Total Protein Albumin 08/19/16 08/19/16 08/19/16 05:28 08:51 08:51 WBC 14.2 H RBC Hgb 10.1 L Hct 32.4 L MCV 80 L MCH 25 L MCHC 31 L RDW 19.6 H Plt Count Lymph % (Auto) [place] % (Auto) 13.2 H Lymph # [place] # 1.9 H Seg Neutrophils % Seg Neuts % (Manual) Lymphocytes % (Manual) Monocytes % (Manual) 10.0 H Nucleated RBC % Seg Neutrophils # 9.0 H Seg Neutrophils # Man 9.4 H Lymphocytes # (Manual) Monocytes # (Manual) 1.4 H PT INR APTT POC ABG pH POC ABG pCO2 POC ABG pO2 Sodium 136 L Potassium 5.2 H Chloride Carbon Dioxide 21 L BUN 29 H Creatinine Glucose 287 H POC Glucose 298 H Calcium 7.9 L AST ALT Alkaline Phosphatase Total Creatine Kinase CK-MB (CK-2) Total Protein Albumin 08/19/16 08/19/16 08/19/16 09:51 13:13 18:17 WBC RBC Hgb Hct MCV MCH MCHC RDW Plt Count Lymph % (Auto) [place] % (Auto) Lymph # [place] # Seg Neutrophils % Seg Neuts % (Manual) Lymphocytes % (Manual) Monocytes % (Manual) Nucleated RBC % Seg Neutrophils # Seg Neutrophils # Man Lymphocytes # (Manual) Monocytes # (Manual) PT INR APTT POC ABG pH POC ABG pCO2 POC ABG pO2 Sodium Potassium Chloride Carbon Dioxide BUN Creatinine Glucose POC Glucose 313 H 360 H 382 H Calcium AST ALT Alkaline Phosphatase Total Creatine Kinase CK-MB (CK-2) Total Protein Albumin 08/19/16 08/20/16 08/20/16 21:30 01:48 05:39 WBC RBC Hgb Hct MCV MCH MCHC RDW Plt Count Lymph % (Auto) [place] % (Auto) Lymph # [place] # Seg Neutrophils % Seg Neuts % (Manual) Lymphocytes % (Manual) Monocytes % (Manual) Nucleated RBC % Seg Neutrophils # Seg Neutrophils # Man Lymphocytes # (Manual) Monocytes # (Manual) PT INR APTT POC ABG pH POC ABG pCO2 POC ABG pO2 Sodium Potassium Chloride Carbon Dioxide BUN Creatinine Glucose POC Glucose 321 H 312 H 299 H Calcium AST ALT Alkaline Phosphatase Total Creatine Kinase CK-MB (CK-2) Total Protein Albumin 08/20/16 08/20/16 08/20/16 05:45 05:48 10:08 WBC 11.3 H RBC Hgb 9.6 L Hct 30.8 L MCV 81 L MCH 25 L MCHC 31 L RDW 19.6 H Plt Count Lymph % (Auto) [place] % (Auto) Lymph # [place] # Seg Neutrophils % Seg Neuts % (Manual) Lymphocytes % (Manual) 11.0 L Monocytes % (Manual) 8.0 H Nucleated RBC % Seg Neutrophils # Seg Neutrophils # Man Lymphocytes # (Manual) Monocytes # (Manual) 0.9 H PT INR APTT POC ABG pH POC ABG pCO2 POC ABG pO2 Sodium Potassium Chloride Carbon Dioxide BUN 31 H Creatinine 0.6 L Glucose 276 H POC Glucose 346 H Calcium AST ALT Alkaline Phosphatase Total Creatine Kinase CK-MB (CK-2) Total Protein Albumin 08/20/16 08/20/16 08/20/16 13:47 17:55 22:01 WBC RBC Hgb Hct MCV MCH MCHC RDW Plt Count Lymph % (Auto) [place] % (Auto) Lymph # [place] # Seg Neutrophils % Seg Neuts % (Manual) Lymphocytes % (Manual) Monocytes % (Manual) Nucleated RBC % Seg Neutrophils # Seg Neutrophils # Man Lymphocytes # (Manual) Monocytes # (Manual) PT INR APTT POC ABG pH POC ABG pCO2 POC ABG pO2 Sodium Potassium Chloride Carbon Dioxide BUN Creatinine Glucose POC Glucose 357 H 261 H 263 H Calcium AST ALT Alkaline Phosphatase Total Creatine Kinase CK-MB (CK-2) Total Protein Albumin 08/21/16 08/21/16 08/21/16 01:44 05:32 07:00 WBC 12.6 H RBC Hgb 10.1 L Hct 32.4 L MCV 81 L MCH 25 L MCHC 31 L RDW 19.3 H Plt Count Lymph % (Auto) [place] % (Auto) Lymph # [place] # Seg Neutrophils % Seg Neuts % (Manual) Lymphocytes % (Manual) Monocytes % (Manual) Nucleated RBC % Seg Neutrophils # Seg Neutrophils # Man 8.7 H Lymphocytes # (Manual) Monocytes # (Manual) 0.9 H PT INR APTT POC ABG pH POC ABG pCO2 POC ABG pO2 Sodium Potassium Chloride Carbon Dioxide BUN Creatinine Glucose POC Glucose 308 H 388 H Calcium AST ALT Alkaline Phosphatase Total Creatine Kinase CK-MB (CK-2) Total Protein Albumin 08/21/16 07:00 WBC RBC Hgb Hct MCV MCH MCHC RDW Plt Count Lymph % (Auto) [place] % (Auto) Lymph # [place] # Seg Neutrophils % Seg Neuts % (Manual) Lymphocytes % (Manual) Monocytes % (Manual) Nucleated RBC % Seg Neutrophils # Seg Neutrophils # Man Lymphocytes # (Manual) Monocytes # (Manual) PT INR APTT POC ABG pH POC ABG pCO2 POC ABG pO2 Sodium 135 L Potassium 5.3 H Chloride Carbon Dioxide BUN 34 H Creatinine 0.7 L Glucose 403 H POC Glucose Calcium 8.1 L AST ALT Alkaline Phosphatase Total Creatine Kinase CK-MB (CK-2) Total Protein Albumin Chest x-ray: report reviewed, image reviewed (clear)
[2016-08-22 05:11] LABS: Hematocrit 33.1 % (35.5-45.6); Hemoglobin 10.6 gm/dl (11.8-15.2); Mean Corpuscular HGB Conc 32 % (32-34); Mean Corpuscular Volume 80 fl (84-94); Platelet Count 196 K/mm3 (140-440); Red Blood Count 4.16 M/mm3 (3.65-5.03); White Blood Count 15.3 K/mm3 (4.5-11.0)
[2016-08-22 05:13] LABS: Mean Corpuscular Hemoglobin 26 pg (28-32)
[2016-08-22 05:32] LABS: Anion Gap 20 mmol/L; BUN/Creatinine Ratio 48.75; Blood Urea Nitrogen 39 mg/dL (9-20); Calcium 8.3 mg/dL (8.4-10.2); Carbon Dioxide 25 mmol/L (22-30); Chloride 98.7 mmol/L (98-107); Glucose 199 mg/dL (75-100); Potassium 5.2 mmol/L (3.6-5.0); Sodium 138 mmol/L (137-145)
[2016-08-22 06:38] LABS: Anisocytosis 1+; Basophils % (Manual) 0 % (0.0-1.8); Blastocytes % (Manual) 0 %; Diff Status Complete; Platelet Estimate Consistent w Auto; Schistocytes Rare
--- NOTE | 2016-08-22 08:10 | XRay Report ---
AP CHEST 08/22/16 01:43 CLINICAL: Respiratory failure. COMPARISON:08/15/16 FINDINGS: The endotracheal tube has been replaced with a tracheostomy tube which is satisfactory. A left PICC line tip is in the distal SVC. Normal heart and pulmonary vasculature. The lungs are clear except for mild bibasal subsegmental atelectasis.No pneumothorax. IMPRESSION: Mild bibasal subsegmental atelectasis. No CHF or pneumonia.
[2016-08-22] MEDS: PEPCID PO SCH ×2 (11:43→21:32)
[2016-08-22] MEDS: ASPIRIN PO SCH (11:43)
[2016-08-22] MEDS: LEVEMIR SUB-Q SCH (11:44)
[2016-08-22] MEDS ORDERED: LEVEMIR SUB-Q ONE (12:00)
[2016-08-22] MEDS: TYLENOL FEEDTUBE PRN (12:27)
--- NOTE | 2016-08-22 12:35 | Progress Note ---
Assessment and Plan Imp: 1. s/p Sepsis 2. ? Tracheobronchitis s/p ABX 3. Hypoglycemia on admit -> metabolic encephalopathy 4. Acute respiratory failure, hypoxia 5. s/p Trach/PEG 6. SIRS Rec: 1. ID signed off; repeat blood, urine, and sputum cultures; hold ABX unless further clinical changes occur 2. Hold off on Scopolamine; may thicken/dry out secretions; start chest PT and Xopenex/Atrovent nebs 3. PSV trials/T-piece as tolerated 4. TFs, supportive 5. Monitor neuro status; no sedation 6. Insulin dose increased 7. Lovenox for DVT PPx 8. Await LT[facility] No family present CCT 31 min Subjective Date of service: 08/22/16 Principal diagnosis: acute respiratory failure, encephalopathy Interval history: Developed fevers past 24 hours. No diarrhea. Eyes open, not following commands, moves all extremities, tolerating PSV during daytime. Copious endotracheal secretions, white to beige per RT and RN. Active Medications Acetaminophen (Tylenol) 650 mg FEEDTUBE Q6H PRN PRN Reason: Non Cardiac Pain or Temp>100.5 Last Admin: 08/22/16 12:27 Dose: 650 mg Lipase/Protease/Amylase (Pancreaze Dr 10,500 Unit) 1 each FEEDTUBE PRN PRN PRN Reason: For Clogged Feeding Tube Aspirin (Aspirin) 325 mg PO QDAY [facility] Last Admin: 08/22/16 11:43 Dose: 325 mg Atorvastatin Calcium (Lipitor) 40 mg PO QHS [facility] Last Admin: 08/21/16 22:06 Dose: 40 mg Dextrose (D50w (25gm)) 25 gm IV PRN PRN PRN Reason: Hypoglycemia Last Admin: 08/17/16 03:18 Dose: 25 gm Enoxaparin Sodium (Lovenox) 40 mg SUB-Q QDAY@1000 [facility] Last Admin: 08/06/16 09:31 Dose: 40 mg Famotidine (Pepcid) 20 mg PO BID [facility] Last Admin: 08/22/16 11:43 Dose: 20 mg Hydralazine HCl (Apresoline) 20 mg IV Q4HR PRN PRN Reason: Blood Pressure Hydrophilic Ointment (Vaseline Lip Therapy) 1 applic TP Q2HR PRN PRN Reason: Dry Lips Last Admin: 08/12/16 23:22 Dose: 1 applic Insulin Detemir (Levemir) 55 units SUB-Q DAILY [facility] Stop: 08/22/16 23:59 Last Admin: 08/22/16 11:44 Dose: 55 units Insulin Detemir (Levemir) 65 units SUB-Q DAILY [facility] Insulin Human Regular (Novolin R) 0 units SUB-Q Q4HR SANIA PRN Reason: Protocol Last Admin: 08/22/16 11:00 Dose: 3 units Multi-Ingred Cream/Lotion/Oil/Oint (Artificial Tears Ophth Oint) 1 applic OU Q4HR PRN PRN Reason: Dry Eye(s) Last Admin: 08/12/16 23:22 Dose: 1 applic Ondansetron HCl (Zofran) 4 mg IV Q8H PRN PRN Reason: N/V unrelieved by Reglan Simple Syrup (Simple Syrup) 15 ml FEEDTUBE PRN PRN PRN Reason: Hypoglycemia Simple Syrup (Simple Syrup) 30 ml FEEDTUBE PRN PRN PRN Reason: Hypoglycemia Sodium Bicarbonate (Sodium Bicarbonate) 325 mg FEEDTUBE PRN PRN PRN Reason: For Clogged Feeding Tube Sodium Chloride (Nacl 0.9% 500 Ml) 1 ml IV DIRECT SANIA Sterile Water (Water For Inj (Pf)) 10 ml IV PRN [facility] Last Admin: 08/19/16 10:07 Dose: 10 ml Objective Vital Signs - 12hr 08/22/16 08/22/16 08/22/16 01:00 02:00 03:01 Temperature Pulse Rate 122 H 127 H 139 H Respiratory 25 H 30 H 32 H Rate Blood Pressure 125/62 134/77 134/77 O2 Sat by Pulse 91 95 95 Oximetry 08/22/16 08/22/16 08/22/16 04:00 04:53 05:01 Temperature 100.3 F H Pulse Rate 130 H 125 H 119 H Respiratory 32 H 32 H 27 H Rate Blood Pressure 115/73 115/73 136/68 O2 Sat by Pulse 94 97 97 Oximetry 08/22/16 08/22/16 08/22/16 06:01 06:12 07:00 Temperature Pulse Rate 131 H 124 H Respiratory 31 H 36 H Rate Blood Pressure 142/85 135/66 O2 Sat by Pulse 91 100 97 Oximetry 08/22/16 08/22/16 08/22/16 08:00 08:45 09:00 Temperature 101.1 F H Pulse Rate 117 H 120 H Respiratory 17 27 H Rate Blood Pressure 130/65 130/78 O2 Sat by Pulse 97 96 96 Oximetry 08/22/16 08/22/16 08/22/16 10:00 11:00 12:00 Temperature Pulse Rate 115 H 115 H 116 H Respiratory 31 H 30 H 30 H Rate Blood Pressure 130/64 137/65 133/65 O2 Sat by Pulse 93 94 96 Oximetry Constitutional: other (trached, critically ill) Eyes: other (pupils are equal, very slowly reactive) ENT: other (trached) Neck: supple Ascultation: Bilateral: rhonchi (coarse throughout) Cardiovascular: other (tachy, RR; no mrg) Gastrointestinal: normoactive bowel sounds, soft, non-tender, non-distended Integumentary: normal Extremities: no cyanosis, no edema Neurologic: non-focal exam (moves all extremities, not following commands or tracking w/ eyes) Psychiatric: other (unable to assess) CBC and BMP: 08/22/16 04:40 08/22/16 04:40 ABG, PT/INR, D-dimer: ABG POC ABG pH 7.407 (7.35-7.45) 08/20/16 12:03 POC ABG pCO2 40.7 (35-45) 08/20/16 12:03 POC ABG pO2 81 (80-105) 08/20/16 12:03 POC ABG HCO3 25.6 08/20/16 12:03 POC ABG Total CO2 27 08/20/16 12:03 POC ABG O2 Sat 96 08/20/16 12:03 PT/INR, D-dimer PT 17.2 Sec. (12.2-14.9) H 08/07/16 07:30 INR 1.41 (0.87-1.13) H 08/07/16 07:30 Abnormal lab findings: Abnormal Labs 07/31/16 07/31/16 07/31/16 08:39 10:07 12:07 WBC RBC Hgb Hct MCV MCH MCHC RDW Plt Count Lymph % (Auto) [place] % (Auto) Lymph # [place] # Seg Neutrophils % Seg Neuts % (Manual) Lymphocytes % (Manual) Monocytes % (Manual) Nucleated RBC % Seg Neutrophils # Seg Neutrophils # Man Lymphocytes # (Manual) Monocytes # (Manual) PT INR APTT POC ABG pH POC ABG pCO2 POC ABG pO2 Sodium Potassium Chloride Carbon Dioxide BUN Creatinine Glucose POC Glucose 205 H 188 H Calcium AST ALT Alkaline Phosphatase Total Creatine Kinase 865 H CK-MB (CK-2) 5.9 H Total Protein Albumin 07/31/16 07/31/16 07/31/16 16:19 19:58 23:53 WBC RBC Hgb Hct MCV MCH MCHC RDW Plt Count Lymph % (Auto) [place] % (Auto) Lymph # [place] # Seg Neutrophils % Seg Neuts % (Manual) Lymphocytes % (Manual) Monocytes % (Manual) Nucleated RBC % Seg Neutrophils # Seg Neutrophils # Man Lymphocytes # (Manual) Monocytes # (Manual) PT INR APTT POC ABG pH POC ABG pCO2 POC ABG pO2 Sodium Potassium Chloride Carbon Dioxide BUN Creatinine Glucose POC Glucose 195 H 147 H 160 H Calcium AST ALT Alkaline Phosphatase Total Creatine Kinase CK-MB (CK-2) Total Protein Albumin 08/01/16 08/01/16 08/01/16 04:18 04:42 07:45 WBC 14.8 H RBC Hgb 10.7 L Hct 34.9 L MCV 82 L MCH 25 L MCHC 31 L RDW 19.1 H Plt Count Lymph % (Auto) [place] % (Auto) Lymph # [place] # Seg Neutrophils % Seg Neuts % (Manual) 80.0 H Lymphocytes % (Manual) 12.0 L Monocytes % (Manual) Nucleated RBC % Seg Neutrophils # Seg Neutrophils # Man 11.8 H Lymphocytes # (Manual) Monocytes # (Manual) PT INR APTT POC ABG pH POC ABG pCO2 33.4 L POC ABG pO2 66 L Sodium Potassium Chloride Carbon Dioxide BUN Creatinine Glucose POC Glucose 225 H Calcium AST ALT Alkaline Phosphatase Total Creatine Kinase CK-MB (CK-2) Total Protein Albumin 08/01/16 08/01/16 08/01/16 07:45 10:09 10:59 WBC RBC Hgb Hct MCV MCH MCHC RDW Plt Count Lymph % (Auto) [place] % (Auto) Lymph # [place] # Seg Neutrophils % Seg Neuts % (Manual) Lymphocytes % (Manual) Monocytes % (Manual) Nucleated RBC % Seg Neutrophils # Seg Neutrophils # Man Lymphocytes # (Manual) Monocytes # (Manual) PT INR APTT POC ABG pH POC ABG pCO2 POC ABG pO2 Sodium Potassium Chloride Carbon Dioxide BUN 29 H Creatinine Glucose 233 H POC Glucose 266 H 318 H Calcium 7.6 L AST ALT Alkaline Phosphatase Total Creatine Kinase CK-MB (CK-2) Total Protein Albumin 08/01/16 08/01/16 08/01/16 14:24 17:56 21:21 WBC RBC Hgb Hct MCV MCH MCHC RDW Plt Count Lymph % (Auto) [place] % (Auto) Lymph # [place] # Seg Neutrophils % Seg Neuts % (Manual) Lymphocytes % (Manual) Monocytes % (Manual) Nucleated RBC % Seg Neutrophils # Seg Neutrophils # Man Lymphocytes # (Manual) Monocytes # (Manual) PT INR APTT POC ABG pH POC ABG pCO2 POC ABG pO2 Sodium Potassium Chloride Carbon Dioxide BUN Creatinine Glucose POC Glucose 298 H 239 H 203 H Calcium AST ALT Alkaline Phosphatase Total Creatine Kinase CK-MB (CK-2) Total Protein Albumin 08/02/16 08/02/16 08/02/16 02:05 03:55 05:38 WBC RBC Hgb Hct MCV MCH MCHC RDW Plt Count Lymph % (Auto) [place] % (Auto) Lymph # [place] # Seg Neutrophils % Seg Neuts % (Manual) Lymphocytes % (Manual) Monocytes % (Manual) Nucleated RBC % Seg Neutrophils # Seg Neutrophils # Man Lymphocytes # (Manual) Monocytes # (Manual) PT INR APTT POC ABG pH 7.460 H POC ABG pCO2 31.2 L POC ABG pO2 71 L Sodium Potassium Chloride Carbon Dioxide BUN Creatinine Glucose POC Glucose 248 H 253 H Calcium AST ALT Alkaline Phosphatase Total Creatine Kinase CK-MB (CK-2) Total Protein Albumin 08/02/16 08/02/16 08/02/16 09:11 09:44 09:44 WBC RBC 3.62 L Hgb 9.4 L Hct 29.1 L MCV 80 L MCH 26 L MCHC RDW 18.7 H Plt Count Lymph % (Auto) [place] % (Auto) 9.2 H Lymph # [place] # 1.0 H Seg Neutrophils % 72.0 H Seg Neuts % (Manual) Lymphocytes % (Manual) Monocytes % (Manual) Nucleated RBC % Seg Neutrophils # Seg Neutrophils # Man Lymphocytes # (Manual) Monocytes # (Manual) PT INR APTT POC ABG pH POC ABG pCO2 POC ABG pO2 Sodium 135 L Potassium Chloride Carbon Dioxide 21 L BUN 42 H Creatinine Glucose 248 H POC Glucose 306 H Calcium 7.6 L AST ALT Alkaline Phosphatase Total Creatine Kinase CK-MB (CK-2) Total Protein Albumin 08/02/16 08/02/16 08/02/16 15:53 17:33 21:39 WBC RBC Hgb Hct MCV MCH MCHC RDW Plt Count Lymph % (Auto) [place] % (Auto) Lymph # [place] # Seg Neutrophils % Seg Neuts % (Manual) Lymphocytes % (Manual) Monocytes % (Manual) Nucleated RBC % Seg Neutrophils # Seg Neutrophils # Man Lymphocytes # (Manual) Monocytes # (Manual) PT INR APTT POC ABG pH POC ABG pCO2 POC ABG pO2 Sodium Potassium Chloride Carbon Dioxide BUN Creatinine Glucose POC Glucose 205 H 250 H 282 H Calcium AST ALT Alkaline Phosphatase Total Creatine Kinase CK-MB (CK-2) Total Protein Albumin 08/03/16 08/03/16 08/03/16 02:28 05:47 07:05 WBC RBC 3.32 L Hgb 8.4 L Hct 26.5 L MCV 80 L MCH 25 L MCHC RDW 18.7 H Plt Count 112 L Lymph % (Auto) 12.5 L [place] % (Auto) 10.2 H Lymph # 1.0 L [place] # Seg Neutrophils % 75.9 H Seg Neuts % (Manual) Lymphocytes % (Manual) Monocytes % (Manual) Nucleated RBC % Seg Neutrophils # Seg Neutrophils # Man Lymphocytes # (Manual) Monocytes # (Manual) PT INR APTT POC ABG pH POC ABG pCO2 POC ABG pO2 Sodium Potassium Chloride Carbon Dioxide BUN Creatinine Glucose POC Glucose 317 H 253 H Calcium AST ALT Alkaline Phosphatase Total Creatine Kinase CK-MB (CK-2) Total Protein Albumin 08/03/16 08/03/16 08/03/16 07:05 09:50 14:07 WBC RBC Hgb Hct MCV MCH MCHC RDW Plt Count Lymph % (Auto) [place] % (Auto) Lymph # [place] # Seg Neutrophils % Seg Neuts % (Manual) Lymphocytes % (Manual) Monocytes % (Manual) Nucleated RBC % Seg Neutrophils # Seg Neutrophils # Man Lymphocytes # (Manual) Monocytes # (Manual) PT INR APTT POC ABG pH POC ABG pCO2 POC ABG pO2 Sodium 132 L Potassium Chloride Carbon Dioxide 20 L BUN 42 H Creatinine Glucose 243 H POC Glucose 332 H 345 H Calcium 6.8 L AST ALT Alkaline Phosphatase Total Creatine Kinase CK-MB (CK-2) Total Protein Albumin 08/03/16 08/03/16 08/04/16 17:38 21:36 02:18 WBC RBC Hgb Hct MCV MCH MCHC RDW Plt Count Lymph % (Auto) [place] % (Auto) Lymph # [place] # Seg Neutrophils % Seg Neuts % (Manual) Lymphocytes % (Manual) Monocytes % (Manual) Nucleated RBC % Seg Neutrophils # Seg Neutrophils # Man Lymphocytes # (Manual) Monocytes # (Manual) PT INR APTT POC ABG pH POC ABG pCO2 POC ABG pO2 Sodium Potassium Chloride Carbon Dioxide BUN Creatinine Glucose POC Glucose 262 H 260 H 256 H Calcium AST ALT Alkaline Phosphatase Total Creatine Kinase CK-MB (CK-2) Total Protein Albumin 08/04/16 08/04/16 08/04/16 05:41 06:00 10:20 WBC RBC Hgb Hct MCV MCH MCHC RDW Plt Count Lymph % (Auto) [place] % (Auto) Lymph # [place] # Seg Neutrophils % Seg Neuts % (Manual) Lymphocytes % (Manual) Monocytes % (Manual) Nucleated RBC % Seg Neutrophils # Seg Neutrophils # Man Lymphocytes # (Manual) Monocytes # (Manual) PT INR APTT POC ABG pH POC ABG pCO2 POC ABG pO2 Sodium Potassium Chloride Carbon Dioxide BUN 34 H Creatinine 0.7 L Glucose 237 H POC Glucose 265 H 266 H Calcium 7.9 L D AST ALT Alkaline Phosphatase Total Creatine Kinase CK-MB (CK-2) Total Protein Albumin 08/04/16 08/04/16 08/04/16 14:20 17:31 21:52 WBC RBC Hgb Hct MCV MCH MCHC RDW Plt Count Lymph % (Auto) [place] % (Auto) Lymph # [place] # Seg Neutrophils % Seg Neuts % (Manual) Lymphocytes % (Manual) Monocytes % (Manual) Nucleated RBC % Seg Neutrophils # Seg Neutrophils # Man Lymphocytes # (Manual) Monocytes # (Manual) PT INR APTT POC ABG pH POC ABG pCO2 POC ABG pO2 Sodium Potassium Chloride Carbon Dioxide BUN Creatinine Glucose POC Glucose 302 H 337 H 340 H Calcium AST ALT Alkaline Phosphatase Total Creatine Kinase CK-MB (CK-2) Total Protein Albumin 08/05/16 08/05/16 08/05/16 01:43 05:00 05:00 WBC RBC Hgb 9.5 L Hct 30.1 L MCV 81 L MCH 26 L MCHC RDW 19.1 H Plt Count 112 L Lymph % (Auto) [place] % (Auto) Lymph # [place] # Seg Neutrophils % Seg Neuts % (Manual) Lymphocytes % (Manual) Monocytes % (Manual) Nucleated RBC % Seg Neutrophils # Seg Neutrophils # Man Lymphocytes # (Manual) Monocytes # (Manual) PT INR APTT POC ABG pH POC ABG pCO2 POC ABG pO2 Sodium Potassium Chloride Carbon Dioxide BUN 27 H Creatinine 0.7 L Glucose 212 H POC Glucose 247 H Calcium 8.3 L AST 92 H ALT 81 H Alkaline Phosphatase 629 H Total Creatine Kinase CK-MB (CK-2) Total Protein 5.9 L Albumin 2.2 L 08/05/16 08/05/16 08/05/16 05:14 05:19 10:12 WBC RBC Hgb Hct MCV MCH MCHC RDW Plt Count Lymph % (Auto) [place] % (Auto) Lymph # [place] # Seg Neutrophils % Seg Neuts % (Manual) Lymphocytes % (Manual) Monocytes % (Manual) Nucleated RBC % Seg Neutrophils # Seg Neutrophils # Man Lymphocytes # (Manual) Monocytes # (Manual) PT INR APTT POC ABG pH 7.469 H POC ABG pCO2 POC ABG pO2 109 H Sodium Potassium Chloride Carbon Dioxide BUN Creatinine Glucose POC Glucose 208 H 206 H Calcium AST ALT Alkaline Phosphatase Total Creatine Kinase CK-MB (CK-2) Total Protein Albumin 08/05/16 08/05/16 08/05/16 13:54 18:31 22:06 WBC RBC Hgb Hct MCV MCH MCHC RDW Plt Count Lymph % (Auto) [place] % (Auto) Lymph # [place] # Seg Neutrophils % Seg Neuts % (Manual) Lymphocytes % (Manual) Monocytes % (Manual) Nucleated RBC % Seg Neutrophils # Seg Neutrophils # Man Lymphocytes # (Manual) Monocytes # (Manual) PT INR APTT POC ABG pH POC ABG pCO2 POC ABG pO2 Sodium Potassium Chloride Carbon Dioxide BUN Creatinine Glucose POC Glucose 226 H 229 H 245 H Calcium AST ALT Alkaline Phosphatase Total Creatine Kinase CK-MB (CK-2) Total Protein Albumin 08/06/16 08/06/16 08/06/16 02:03 05:31 05:42 WBC RBC Hgb Hct MCV MCH MCHC RDW Plt Count Lymph % (Auto) [place] % (Auto) Lymph # [place] # Seg Neutrophils % Seg Neuts % (Manual) Lymphocytes % (Manual) Monocytes % (Manual) Nucleated RBC % Seg Neutrophils # Seg Neutrophils # Man Lymphocytes # (Manual) Monocytes # (Manual) PT INR APTT POC ABG pH POC ABG pCO2 POC ABG pO2 62 L Sodium Potassium Chloride Carbon Dioxide BUN Creatinine Glucose POC Glucose 237 H 205 H Calcium AST ALT Alkaline Phosphatase Total Creatine Kinase CK-MB (CK-2) Total Protein Albumin 08/06/16 08/06/16 08/06/16 09:36 11:30 14:23 WBC RBC Hgb Hct MCV MCH MCHC RDW Plt Count Lymph % (Auto) [place] % (Auto) Lymph # [place] # Seg Neutrophils % Seg Neuts % (Manual) Lymphocytes % (Manual) Monocytes % (Manual) Nucleated RBC % Seg Neutrophils # Seg Neutrophils # Man Lymphocytes # (Manual) Monocytes # (Manual) PT 18.9 H INR 1.59 H APTT 39.7 H POC ABG pH POC ABG pCO2 POC ABG pO2 Sodium Potassium Chloride Carbon Dioxide BUN Creatinine Glucose POC Glucose 279 H 264 H Calcium AST ALT Alkaline Phosphatase Total Creatine Kinase CK-MB (CK-2) Total Protein Albumin 08/06/16 08/07/16 08/07/16 18:07 03:01 05:18 WBC RBC Hgb Hct MCV MCH MCHC RDW Plt Count Lymph % (Auto) [place] % (Auto) Lymph # [place] # Seg Neutrophils % Seg Neuts % (Manual) Lymphocytes % (Manual) Monocytes % (Manual) Nucleated RBC % Seg Neutrophils # Seg Neutrophils # Man Lymphocytes # (Manual) Monocytes # (Manual) PT INR APTT POC ABG pH 7.459 H POC ABG pCO2 POC ABG pO2 Sodium Potassium Chloride Carbon Dioxide BUN Creatinine Glucose POC Glucose 176 H 172 H Calcium AST ALT Alkaline Phosphatase Total Creatine Kinase CK-MB (CK-2) Total Protein Albumin 08/07/16 08/07/16 08/07/16 05:32 07:30 07:30 WBC RBC 3.39 L Hgb 8.6 L Hct 27.2 L MCV 80 L MCH 25 L MCHC RDW 19.1 H Plt Count 136 L Lymph % (Auto) [place] % (Auto) Lymph # [place] # Seg Neutrophils % Seg Neuts % (Manual) 84.0 H Lymphocytes % (Manual) 4.0 L Monocytes % (Manual) 8.0 H Nucleated RBC % Seg Neutrophils # Seg Neutrophils # Man 8.2 H Lymphocytes # (Manual) 0.4 L Monocytes # (Manual) PT 17.2 H INR 1.41 H APTT POC ABG pH POC ABG pCO2 POC ABG pO2 Sodium Potassium Chloride Carbon Dioxide BUN Creatinine Glucose POC Glucose 204 H Calcium AST ALT Alkaline Phosphatase Total Creatine Kinase CK-MB (CK-2) Total Protein Albumin 08/07/16 08/07/16 08/07/16 07:30 10:03 14:35 WBC RBC Hgb Hct MCV MCH MCHC RDW Plt Count Lymph % (Auto) [place] % (Auto) Lymph # [place] # Seg Neutrophils % Seg Neuts % (Manual) Lymphocytes % (Manual) Monocytes % (Manual) Nucleated RBC % Seg Neutrophils # Seg Neutrophils # Man Lymphocytes # (Manual) Monocytes # (Manual) PT INR APTT POC ABG pH POC ABG pCO2 POC ABG pO2 Sodium Potassium Chloride Carbon Dioxide BUN 27 H Creatinine 0.7 L Glucose 201 H POC Glucose 233 H 255 H Calcium 7.9 L AST 73 H ALT 74 H Alkaline Phosphatase 595 H Total Creatine Kinase CK-MB (CK-2) Total Protein 5.1 L Albumin 1.8 L 08/07/16 08/07/16 08/08/16 16:09 22:01 01:27 WBC RBC Hgb Hct MCV MCH MCHC RDW Plt Count Lymph % (Auto) [place] % (Auto) Lymph # [place] # Seg Neutrophils % Seg Neuts % (Manual) Lymphocytes % (Manual) Monocytes % (Manual) Nucleated RBC % Seg Neutrophils # Seg Neutrophils # Man Lymphocytes # (Manual) Monocytes # (Manual) PT INR APTT POC ABG pH POC ABG pCO2 POC ABG pO2 Sodium Potassium Chloride Carbon Dioxide BUN Creatinine Glucose POC Glucose 259 H 255 H 252 H Calcium AST ALT Alkaline Phosphatase Total Creatine Kinase CK-MB (CK-2) Total Protein Albumin 08/08/16 08/08/16 08/08/16 05:13 06:23 07:40 WBC RBC 3.36 L Hgb 8.5 L Hct 27.1 L MCV 81 L MCH 25 L MCHC 31 L RDW 18.8 H Plt Count 129 L Lymph % (Auto) [place] % (Auto) Lymph # [place] # Seg Neutrophils % Seg Neuts % (Manual) Lymphocytes % (Manual) Monocytes % (Manual) Nucleated RBC % 2.0 H Seg Neutrophils # Seg Neutrophils # Man Lymphocytes # (Manual) Monocytes # (Manual) PT INR APTT POC ABG pH 7.460 H POC ABG pCO2 POC ABG pO2 74 L Sodium Potassium Chloride Carbon Dioxide BUN Creatinine Glucose POC Glucose 264 H Calcium AST ALT Alkaline Phosphatase Total Creatine Kinase CK-MB (CK-2) Total Protein Albumin 08/08/16 08/08/16 08/08/16 07:40 10:01 15:00 WBC RBC Hgb Hct MCV MCH MCHC RDW Plt Count Lymph % (Auto) [place] % (Auto) Lymph # [place] # Seg Neutrophils % Seg Neuts % (Manual) Lymphocytes % (Manual) Monocytes % (Manual) Nucleated RBC % Seg Neutrophils # Seg Neutrophils # Man Lymphocytes # (Manual) Monocytes # (Manual) PT INR APTT POC ABG pH POC ABG pCO2 POC ABG pO2 Sodium Potassium Chloride Carbon Dioxide BUN 26 H Creatinine 0.7 L Glucose 233 H POC Glucose 271 H 275 H Calcium 7.6 L AST 77 H ALT 71 H Alkaline Phosphatase 658 H Total Creatine Kinase CK-MB (CK-2) Total Protein 5.0 L Albumin 1.6 L 08/08/16 08/08/16 08/08/16 17:28 21:32 23:53 WBC RBC Hgb Hct MCV MCH MCHC RDW Plt Count Lymph % (Auto) [place] % (Auto) Lymph # [place] # Seg Neutrophils % Seg Neuts % (Manual) Lymphocytes % (Manual) Monocytes % (Manual) Nucleated RBC % Seg Neutrophils # Seg Neutrophils # Man Lymphocytes # (Manual) Monocytes # (Manual) PT INR APTT POC ABG pH POC ABG pCO2 POC ABG pO2 Sodium Potassium Chloride Carbon Dioxide BUN Creatinine Glucose POC Glucose 275 H 252 H 246 H Calcium AST ALT Alkaline Phosphatase Total Creatine Kinase CK-MB (CK-2) Total Protein Albumin 08/09/16 08/09/16 08/09/16 03:32 05:00 05:00 WBC RBC 3.34 L Hgb 8.3 L Hct 26.7 L MCV 80 L MCH 25 L MCHC 31 L RDW 18.5 H Plt Count Lymph % (Auto) [place] % (Auto) Lymph # [place] # Seg Neutrophils % Seg Neuts % (Manual) Lymphocytes % (Manual) Monocytes % (Manual) Nucleated RBC % Seg Neutrophils # Seg Neutrophils # Man Lymphocytes # (Manual) Monocytes # (Manual) PT INR APTT POC ABG pH POC ABG pCO2 POC ABG pO2 Sodium Potassium Chloride Carbon Dioxide BUN 25 H Creatinine 0.5 L Glucose 230 H POC Glucose 260 H Calcium 7.6 L AST ALT Alkaline Phosphatase Total Creatine Kinase CK-MB (CK-2) Total Protein Albumin 08/09/16 08/09/16 08/09/16 06:00 10:07 14:07 WBC RBC Hgb Hct MCV MCH MCHC RDW Plt Count Lymph % (Auto) [place] % (Auto) Lymph # [place] # Seg Neutrophils % Seg Neuts % (Manual) Lymphocytes % (Manual) Monocytes % (Manual) Nucleated RBC % Seg Neutrophils # Seg Neutrophils # Man Lymphocytes # (Manual) Monocytes # (Manual) PT INR APTT POC ABG pH 7.493 H POC ABG pCO2 POC ABG pO2 Sodium Potassium Chloride Carbon Dioxide BUN Creatinine Glucose POC Glucose 216 H 220 H Calcium AST ALT Alkaline Phosphatase Total Creatine Kinase CK-MB (CK-2) Total Protein Albumin 08/09/16 08/09/16 08/10/16 16:55 21:07 02:09 WBC RBC Hgb Hct MCV MCH MCHC RDW Plt Count Lymph % (Auto) [place] % (Auto) Lymph # [place] # Seg Neutrophils % Seg Neuts % (Manual) Lymphocytes % (Manual) Monocytes % (Manual) Nucleated RBC % Seg Neutrophils # Seg Neutrophils # Man Lymphocytes # (Manual) Monocytes # (Manual) PT INR APTT POC ABG pH POC ABG pCO2 POC ABG pO2 Sodium Potassium Chloride Carbon Dioxide BUN Creatinine Glucose POC Glucose 242 H 235 H 228 H Calcium AST ALT Alkaline Phosphatase Total Creatine Kinase CK-MB (CK-2) Total Protein Albumin 08/10/16 08/10/16 08/10/16 05:31 09:06 13:45 WBC RBC Hgb Hct MCV MCH MCHC RDW Plt Count Lymph % (Auto) [place] % (Auto) Lymph # [place] # Seg Neutrophils % Seg Neuts % (Manual) Lymphocytes % (Manual) Monocytes % (Manual) Nucleated RBC % Seg Neutrophils # Seg Neutrophils # Man Lymphocytes # (Manual) Monocytes # (Manual) PT INR APTT POC ABG pH POC ABG pCO2 POC ABG pO2 Sodium Potassium Chloride Carbon Dioxide BUN Creatinine Glucose POC Glucose 201 H 229 H 274 H Calcium AST ALT Alkaline Phosphatase Total Creatine Kinase CK-MB (CK-2) Total Protein Albumin 08/10/16 08/10/16 08/10/16 17:53 21:43 Unknown WBC RBC 3.42 L Hgb 8.6 L Hct 27.5 L MCV 80 L MCH 25 L MCHC RDW 19.1 H Plt Count Lymph % (Auto) [place] % (Auto) Lymph # [place] # Seg Neutrophils % Seg Neuts % (Manual) Lymphocytes % (Manual) Monocytes % (Manual) Nucleated RBC % Seg Neutrophils # Seg Neutrophils # Man Lymphocytes # (Manual) Monocytes # (Manual) PT INR APTT POC ABG pH POC ABG pCO2 POC ABG pO2 Sodium Potassium Chloride Carbon Dioxide BUN Creatinine Glucose POC Glucose 284 H 328 H Calcium AST ALT Alkaline Phosphatase Total Creatine Kinase CK-MB (CK-2) Total Protein Albumin 08/10/16 08/11/16 08/11/16 Unknown 01:37 05:39 WBC RBC Hgb Hct MCV MCH MCHC RDW Plt Count Lymph % (Auto) [place] % (Auto) Lymph # [place] # Seg Neutrophils % Seg Neuts % (Manual) Lymphocytes % (Manual) Monocytes % (Manual) Nucleated RBC % Seg Neutrophils # Seg Neutrophils # Man Lymphocytes # (Manual) Monocytes # (Manual) PT INR APTT POC ABG pH POC ABG pCO2 POC ABG pO2 Sodium Potassium Chloride Carbon Dioxide BUN 27 H Creatinine 0.6 L Glucose 211 H POC Glucose 340 H 323 H Calcium 7.8 L AST ALT Alkaline Phosphatase Total Creatine Kinase CK-MB (CK-2) Total Protein Albumin 08/11/16 08/11/16 08/11/16 09:58 15:22 17:41 WBC RBC Hgb Hct MCV MCH MCHC RDW Plt Count Lymph % (Auto) [place] % (Auto) Lymph # [place] # Seg Neutrophils % Seg Neuts % (Manual) Lymphocytes % (Manual) Monocytes % (Manual) Nucleated RBC % Seg Neutrophils # Seg Neutrophils # Man Lymphocytes # (Manual) Monocytes # (Manual) PT INR APTT POC ABG pH POC ABG pCO2 POC ABG pO2 Sodium Potassium Chloride Carbon Dioxide BUN Creatinine Glucose POC Glucose 295 H 210 H 164 H Calcium AST ALT Alkaline Phosphatase Total Creatine Kinase CK-MB (CK-2) Total Protein Albumin 08/11/16 08/12/16 08/12/16 21:53 01:56 05:15 WBC RBC Hgb Hct MCV MCH MCHC RDW Plt Count Lymph % (Auto) [place] % (Auto) Lymph # [place] # Seg Neutrophils % Seg Neuts % (Manual) Lymphocytes % (Manual) Monocytes % (Manual) Nucleated RBC % Seg Neutrophils # Seg Neutrophils # Man Lymphocytes # (Manual) Monocytes # (Manual) PT INR APTT POC ABG pH POC ABG pCO2 POC ABG pO2 Sodium Potassium Chloride Carbon Dioxide BUN Creatinine Glucose POC Glucose 171 H 205 H 156 H Calcium AST ALT Alkaline Phosphatase Total Creatine Kinase CK-MB (CK-2) Total Protein Albumin 08/12/16 08/12/16 08/12/16 10:10 14:33 17:53 WBC RBC Hgb Hct MCV MCH MCHC RDW Plt Count Lymph % (Auto) [place] % (Auto) Lymph # [place] # Seg Neutrophils % Seg Neuts % (Manual) Lymphocytes % (Manual) Monocytes % (Manual) Nucleated RBC % Seg Neutrophils # Seg Neutrophils # Man Lymphocytes # (Manual) Monocytes # (Manual) PT INR APTT POC ABG pH POC ABG pCO2 POC ABG pO2 Sodium Potassium Chloride Carbon Dioxide BUN Creatinine Glucose POC Glucose 224 H 245 H 259 H Calcium AST ALT Alkaline Phosphatase Total Creatine Kinase CK-MB (CK-2) Total Protein Albumin 08/12/16 08/13/16 08/13/16 21:56 04:00 04:02 WBC RBC Hgb Hct MCV MCH MCHC RDW Plt Count Lymph % (Auto) [place] % (Auto) Lymph # [place] # Seg Neutrophils % Seg Neuts % (Manual) Lymphocytes % (Manual) Monocytes % (Manual) Nucleated RBC % Seg Neutrophils # Seg Neutrophils # Man Lymphocytes # (Manual) Monocytes # (Manual) PT INR APTT POC ABG pH POC ABG pCO2 POC ABG pO2 Sodium 136 L Potassium Chloride 97.2 L Carbon Dioxide BUN 26 H Creatinine 0.6 L Glucose 185 H POC Glucose 229 H 202 H Calcium 7.3 L AST ALT Alkaline Phosphatase Total Creatine Kinase CK-MB (CK-2) Total Protein Albumin 08/13/16 08/13/16 08/13/16 06:47 09:53 13:40 WBC RBC Hgb Hct MCV MCH MCHC RDW Plt Count Lymph % (Auto) [place] % (Auto) Lymph # [place] # Seg Neutrophils % Seg Neuts % (Manual) Lymphocytes % (Manual) Monocytes % (Manual) Nucleated RBC % Seg Neutrophils # Seg Neutrophils # Man Lymphocytes # (Manual) Monocytes # (Manual) PT INR APTT POC ABG pH POC ABG pCO2 POC ABG pO2 Sodium Potassium Chloride Carbon Dioxide BUN Creatinine Glucose POC Glucose 191 H 221 H 225 H Calcium AST ALT Alkaline Phosphatase Total Creatine Kinase CK-MB (CK-2) Total Protein Albumin 08/13/16 08/13/16 08/13/16 17:07 21:09 Unknown WBC RBC 3.53 L Hgb 8.9 L Hct 28.4 L MCV 81 L MCH 25 L MCHC 31 L RDW 19.2 H Plt Count Lymph % (Auto) [place] % (Auto) Lymph # [place] # Seg Neutrophils % Seg Neuts % (Manual) Lymphocytes % (Manual) Monocytes % (Manual) Nucleated RBC % Seg Neutrophils # Seg Neutrophils # Man Lymphocytes # (Manual) Monocytes # (Manual) PT INR APTT POC ABG pH POC ABG pCO2 POC ABG pO2 Sodium Potassium Chloride Carbon Dioxide BUN Creatinine Glucose POC Glucose 232 H 166 H Calcium AST ALT Alkaline Phosphatase Total Creatine Kinase CK-MB (CK-2) Total Protein Albumin 08/14/16 08/14/16 08/14/16 01:42 05:16 08:57 WBC RBC Hgb Hct MCV MCH MCHC RDW Plt Count Lymph % (Auto) [place] % (Auto) Lymph # [place] # Seg Neutrophils % Seg Neuts % (Manual) Lymphocytes % (Manual) Monocytes % (Manual) Nucleated RBC % Seg Neutrophils # Seg Neutrophils # Man Lymphocytes # (Manual) Monocytes # (Manual) PT INR APTT POC ABG pH POC ABG pCO2 POC ABG pO2 Sodium Potassium Chloride Carbon Dioxide BUN Creatinine Glucose POC Glucose 172 H 182 H 233 H Calcium AST ALT Alkaline Phosphatase Total Creatine Kinase CK-MB (CK-2) Total Protein Albumin 08/14/16 08/14/16 08/14/16 11:30 14:09 17:48 WBC RBC Hgb Hct MCV MCH MCHC RDW Plt Count Lymph % (Auto) [place] % (Auto) Lymph # [place] # Seg Neutrophils % Seg Neuts % (Manual) Lymphocytes % (Manual) Monocytes % (Manual) Nucleated RBC % Seg Neutrophils # Seg Neutrophils # Man Lymphocytes # (Manual) Monocytes # (Manual) PT INR APTT POC ABG pH POC ABG pCO2 POC ABG pO2 Sodium 135 L Potassium Chloride 97.0 L Carbon Dioxide BUN 31 H Creatinine 0.7 L Glucose 271 H POC Glucose 302 H 260 H Calcium 7.4 L AST 86 H ALT 79 H Alkaline Phosphatase 1015 H Total Creatine Kinase CK-MB (CK-2) Total Protein 6.1 L Albumin 2.1 L 08/14/16 08/15/16 08/15/16 22:26 01:58 04:55 WBC RBC Hgb 9.1 L Hct 28.8 L MCV 79 L MCH 25 L MCHC RDW 19.1 H Plt Count Lymph % (Auto) [place] % (Auto) Lymph # [place] # Seg Neutrophils % Seg Neuts % (Manual) Lymphocytes % (Manual) Monocytes % (Manual) Nucleated RBC % Seg Neutrophils # Seg Neutrophils # Man Lymphocytes # (Manual) Monocytes # (Manual) PT INR APTT POC ABG pH POC ABG pCO2 POC ABG pO2 Sodium Potassium Chloride Carbon Dioxide BUN Creatinine Glucose POC Glucose 188 H 200 H Calcium AST ALT Alkaline Phosphatase Total Creatine Kinase CK-MB (CK-2) Total Protein Albumin 08/15/16 08/15/16 08/15/16 04:55 09:43 13:06 WBC RBC Hgb Hct MCV MCH MCHC RDW Plt Count Lymph % (Auto) [place] % (Auto) Lymph # [place] # Seg Neutrophils % Seg Neuts % (Manual) Lymphocytes % (Manual) Monocytes % (Manual) Nucleated RBC % Seg Neutrophils # Seg Neutrophils # Man Lymphocytes # (Manual) Monocytes # (Manual) PT INR APTT POC ABG pH POC ABG pCO2 POC ABG pO2 Sodium 133 L Potassium Chloride 96.2 L Carbon Dioxide BUN 35 H Creatinine 0.6 L Glucose 168 H POC Glucose 253 H 196 H Calcium 7.6 L AST 87 H ALT 77 H Alkaline Phosphatase 1075 H Total Creatine Kinase CK-MB (CK-2) Total Protein 6.2 L Albumin 2.2 L 08/15/16 08/15/16 08/16/16 17:13 21:27 02:00 WBC RBC Hgb Hct MCV MCH MCHC RDW Plt Count Lymph % (Auto) [place] % (Auto) Lymph # [place] # Seg Neutrophils % Seg Neuts % (Manual) Lymphocytes % (Manual) Monocytes % (Manual) Nucleated RBC % Seg Neutrophils # Seg Neutrophils # Man Lymphocytes # (Manual) Monocytes # (Manual) PT INR APTT POC ABG pH POC ABG pCO2 POC ABG pO2 Sodium Potassium Chloride Carbon Dioxide BUN Creatinine Glucose POC Glucose 152 H 119 H 171 H Calcium AST ALT Alkaline Phosphatase Total Creatine Kinase CK-MB (CK-2) Total Protein Albumin 08/16/16 08/16/16 08/16/16 05:29 06:00 06:00 WBC 11.2 H RBC Hgb 9.6 L Hct 30.8 L MCV 79 L MCH 25 L MCHC 31 L RDW 19.2 H Plt Count Lymph % (Auto) [place] % (Auto) Lymph # [place] # Seg Neutrophils % Seg Neuts % (Manual) 83.0 H Lymphocytes % (Manual) 12.0 L Monocytes % (Manual) Nucleated RBC % Seg Neutrophils # Seg Neutrophils # Man 9.3 H Lymphocytes # (Manual) Monocytes # (Manual) PT INR APTT POC ABG pH POC ABG pCO2 POC ABG pO2 Sodium Potassium Chloride Carbon Dioxide BUN 30 H Creatinine 0.6 L Glucose 136 H POC Glucose 164 H Calcium 7.5 L AST ALT Alkaline Phosphatase Total Creatine Kinase CK-MB (CK-2) Total Protein Albumin 08/16/16 08/16/16 08/16/16 09:31 13:27 17:28 WBC RBC Hgb Hct MCV MCH MCHC RDW Plt Count Lymph % (Auto) [place] % (Auto) Lymph # [place] # Seg Neutrophils % Seg Neuts % (Manual) Lymphocytes % (Manual) Monocytes % (Manual) Nucleated RBC % Seg Neutrophils # Seg Neutrophils # Man Lymphocytes # (Manual) Monocytes # (Manual) PT INR APTT POC ABG pH POC ABG pCO2 POC ABG pO2 Sodium Potassium Chloride Carbon Dioxide BUN Creatinine Glucose POC Glucose 270 H 217 H 227 H Calcium AST ALT Alkaline Phosphatase Total Creatine Kinase CK-MB (CK-2) Total Protein Albumin 08/16/16 08/17/16 08/17/16 21:32 05:50 09:55 WBC RBC Hgb Hct MCV MCH MCHC RDW Plt Count Lymph % (Auto) [place] % (Auto) Lymph # [place] # Seg Neutrophils % Seg Neuts % (Manual) Lymphocytes % (Manual) Monocytes % (Manual) Nucleated RBC % Seg Neutrophils # Seg Neutrophils # Man Lymphocytes # (Manual) Monocytes # (Manual) PT INR APTT POC ABG pH POC ABG pCO2 POC ABG pO2 Sodium Potassium Chloride Carbon Dioxide BUN Creatinine Glucose POC Glucose 186 H 131 H 170 H Calcium AST ALT Alkaline Phosphatase Total Creatine Kinase CK-MB (CK-2) Total Protein Albumin 08/17/16 08/17/16 08/18/16 17:21 21:56 02:02 WBC RBC Hgb Hct MCV MCH MCHC RDW Plt Count Lymph % (Auto) [place] % (Auto) Lymph # [place] # Seg Neutrophils % Seg Neuts % (Manual) Lymphocytes % (Manual) Monocytes % (Manual) Nucleated RBC % Seg Neutrophils # Seg Neutrophils # Man Lymphocytes # (Manual) Monocytes # (Manual) PT INR APTT POC ABG pH POC ABG pCO2 POC ABG pO2 Sodium Potassium Chloride Carbon Dioxide BUN Creatinine Glucose POC Glucose 190 H 207 H 170 H Calcium AST ALT Alkaline Phosphatase Total Creatine Kinase CK-MB (CK-2) Total Protein Albumin 08/18/16 08/18/16 08/18/16 05:22 10:16 14:19 WBC RBC Hgb Hct MCV MCH MCHC RDW Plt Count Lymph % (Auto) [place] % (Auto) Lymph # [place] # Seg Neutrophils % Seg Neuts % (Manual) Lymphocytes % (Manual) Monocytes % (Manual) Nucleated RBC % Seg Neutrophils # Seg Neutrophils # Man Lymphocytes # (Manual) Monocytes # (Manual) PT INR APTT POC ABG pH POC ABG pCO2 POC ABG pO2 Sodium Potassium Chloride Carbon Dioxide BUN Creatinine Glucose POC Glucose 173 H 200 H 215 H Calcium AST ALT Alkaline Phosphatase Total Creatine Kinase CK-MB (CK-2) Total Protein Albumin 08/18/16 08/18/16 08/19/16 18:40 21:31 01:59 WBC RBC Hgb Hct MCV MCH MCHC RDW Plt Count Lymph % (Auto) [place] % (Auto) Lymph # [place] # Seg Neutrophils % Seg Neuts % (Manual) Lymphocytes % (Manual) Monocytes % (Manual) Nucleated RBC % Seg Neutrophils # Seg Neutrophils # Man Lymphocytes # (Manual) Monocytes # (Manual) PT INR APTT POC ABG pH POC ABG pCO2 POC ABG pO2 Sodium Potassium Chloride Carbon Dioxide BUN Creatinine Glucose POC Glucose 245 H 277 H 269 H Calcium AST ALT Alkaline Phosphatase Total Creatine Kinase CK-MB (CK-2) Total Protein Albumin 08/19/16 08/19/16 08/19/16 05:28 08:51 08:51 WBC 14.2 H RBC Hgb 10.1 L Hct 32.4 L MCV 80 L MCH 25 L MCHC 31 L RDW 19.6 H Plt Count Lymph % (Auto) [place] % (Auto) 13.2 H Lymph # [place] # 1.9 H Seg Neutrophils % Seg Neuts % (Manual) Lymphocytes % (Manual) Monocytes % (Manual) 10.0 H Nucleated RBC % Seg Neutrophils # 9.0 H Seg Neutrophils # Man 9.4 H Lymphocytes # (Manual) Monocytes # (Manual) 1.4 H PT INR APTT POC ABG pH POC ABG pCO2 POC ABG pO2 Sodium 136 L Potassium 5.2 H Chloride Carbon Dioxide 21 L BUN 29 H Creatinine Glucose 287 H POC Glucose 298 H Calcium 7.9 L AST ALT Alkaline Phosphatase Total Creatine Kinase CK-MB (CK-2) Total Protein Albumin 08/19/16 08/19/16 08/19/16 09:51 13:13 18:17 WBC RBC Hgb Hct MCV MCH MCHC RDW Plt Count Lymph % (Auto) [place] % (Auto) Lymph # [place] # Seg Neutrophils % Seg Neuts % (Manual) Lymphocytes % (Manual) Monocytes % (Manual) Nucleated RBC % Seg Neutrophils # Seg Neutrophils # Man Lymphocytes # (Manual) Monocytes # (Manual) PT INR APTT POC ABG pH POC ABG pCO2 POC ABG pO2 Sodium Potassium Chloride Carbon Dioxide BUN Creatinine Glucose POC Glucose 313 H 360 H 382 H Calcium AST ALT Alkaline Phosphatase Total Creatine Kinase CK-MB (CK-2) Total Protein Albumin 08/19/16 08/20/16 08/20/16 21:30 01:48 05:39 WBC RBC Hgb Hct MCV MCH MCHC RDW Plt Count Lymph % (Auto) [place] % (Auto) Lymph # [place] # Seg Neutrophils % Seg Neuts % (Manual) Lymphocytes % (Manual) Monocytes % (Manual) Nucleated RBC % Seg Neutrophils # Seg Neutrophils # Man Lymphocytes # (Manual) Monocytes # (Manual) PT INR APTT POC ABG pH POC ABG pCO2 POC ABG pO2 Sodium Potassium Chloride Carbon Dioxide BUN Creatinine Glucose POC Glucose 321 H 312 H 299 H Calcium AST ALT Alkaline Phosphatase Total Creatine Kinase CK-MB (CK-2) Total Protein Albumin 08/20/16 08/20/16 08/20/16 05:45 05:48 10:08 WBC 11.3 H RBC Hgb 9.6 L Hct 30.8 L MCV 81 L MCH 25 L MCHC 31 L RDW 19.6 H Plt Count Lymph % (Auto) [place] % (Auto) Lymph # [place] # Seg Neutrophils % Seg Neuts % (Manual) Lymphocytes % (Manual) 11.0 L Monocytes % (Manual) 8.0 H Nucleated RBC % Seg Neutrophils # Seg Neutrophils # Man Lymphocytes # (Manual) Monocytes # (Manual) 0.9 H PT INR APTT POC ABG pH POC ABG pCO2 POC ABG pO2 Sodium Potassium Chloride Carbon Dioxide BUN 31 H Creatinine 0.6 L Glucose 276 H POC Glucose 346 H Calcium AST ALT Alkaline Phosphatase Total Creatine Kinase CK-MB (CK-2) Total Protein Albumin 08/20/16 08/20/16 08/20/16 13:47 17:55 22:01 WBC RBC Hgb Hct MCV MCH MCHC RDW Plt Count Lymph % (Auto) [place] % (Auto) Lymph # [place] # Seg Neutrophils % Seg Neuts % (Manual) Lymphocytes % (Manual) Monocytes % (Manual) Nucleated RBC % Seg Neutrophils # Seg Neutrophils # Man Lymphocytes # (Manual) Monocytes # (Manual) PT INR APTT POC ABG pH POC ABG pCO2 POC ABG pO2 Sodium Potassium Chloride Carbon Dioxide BUN Creatinine Glucose POC Glucose 357 H 261 H 263 H Calcium AST ALT Alkaline Phosphatase Total Creatine Kinase CK-MB (CK-2) Total Protein Albumin 08/21/16 08/21/16 08/21/16 01:44 05:32 07:00 WBC 12.6 H RBC Hgb 10.1 L Hct 32.4 L MCV 81 L MCH 25 L MCHC 31 L RDW 19.3 H Plt Count Lymph % (Auto) [place] % (Auto) Lymph # [place] # Seg Neutrophils % Seg Neuts % (Manual) Lymphocytes % (Manual) Monocytes % (Manual) Nucleated RBC % Seg Neutrophils # Seg Neutrophils # Man 8.7 H Lymphocytes # (Manual) Monocytes # (Manual) 0.9 H PT INR APTT POC ABG pH POC ABG pCO2 POC ABG pO2 Sodium Potassium Chloride Carbon Dioxide BUN Creatinine Glucose POC Glucose 308 H 388 H Calcium AST ALT Alkaline Phosphatase Total Creatine Kinase CK-MB (CK-2) Total Protein Albumin 08/21/16 08/21/16 08/21/16 07:00 10:17 15:01 WBC RBC Hgb Hct MCV MCH MCHC RDW Plt Count Lymph % (Auto) [place] % (Auto) Lymph # [place] # Seg Neutrophils % Seg Neuts % (Manual) Lymphocytes % (Manual) Monocytes % (Manual) Nucleated RBC % Seg Neutrophils # Seg Neutrophils # Man Lymphocytes # (Manual) Monocytes # (Manual) PT INR APTT POC ABG pH POC ABG pCO2 POC ABG pO2 Sodium 135 L Potassium 5.3 H Chloride Carbon Dioxide BUN 34 H Creatinine 0.7 L Glucose 403 H POC Glucose 341 H 336 H Calcium 8.1 L AST ALT Alkaline Phosphatase Total Creatine Kinase CK-MB (CK-2) Total Protein Albumin 08/21/16 08/21/16 08/22/16 17:44 21:41 01:56 WBC RBC Hgb Hct MCV MCH MCHC RDW Plt Count Lymph % (Auto) [place] % (Auto) Lymph # [place] # Seg Neutrophils % Seg Neuts % (Manual) Lymphocytes % (Manual) Monocytes % (Manual) Nucleated RBC % Seg Neutrophils # Seg Neutrophils # Man Lymphocytes # (Manual) Monocytes # (Manual) PT INR APTT POC ABG pH POC ABG pCO2 POC ABG pO2 Sodium Potassium Chloride Carbon Dioxide BUN Creatinine Glucose POC Glucose 339 H 323 H 269 H Calcium AST ALT Alkaline Phosphatase Total Creatine Kinase CK-MB (CK-2) Total Protein Albumin 08/22/16 08/22/16 04:40 04:40 WBC 15.3 H RBC Hgb 10.6 L Hct 33.1 L MCV 80 L MCH 26 L MCHC RDW 20.0 H Plt Count Lymph % (Auto) [place] % (Auto) Lymph # [place] # Seg Neutrophils % Seg Neuts % (Manual) 71.0 H Lymphocytes % (Manual) Monocytes % (Manual) 8.0 H Nucleated RBC % Seg Neutrophils # Seg Neutrophils # Man 10.9 H Lymphocytes # (Manual) Monocytes # (Manual) 1.2 H PT INR APTT POC ABG pH POC ABG pCO2 POC ABG pO2 Sodium Potassium 5.2 H Chloride Carbon Dioxide BUN 39 H Creatinine Glucose 199 H POC Glucose Calcium 8.3 L AST ALT Alkaline Phosphatase Total Creatine Kinase CK-MB (CK-2) Total Protein Albumin Chest x-ray: report reviewed, image reviewed (mild bibasilar atelectasis)
[2016-08-22] MEDS: XOPENEX IH SCH ×3 (13:42→19:54)
[2016-08-22] MEDS: ATROVENT IH SCH ×3 (13:42→19:54)
--- NOTE | 2016-08-22 17:17 | Progress Note ---
Assessment and Plan Assessment and plan: Mr. Gray is a 76-year-old man with a history of diabetes mellitus type 2 and hypertension who was brought in to the ED from home after being with decreased level of consciousness by his son. Patient was intubated in the ER and admitted to the ICU with acute hypoxic respiratory failure, encephalopathy and septic shock. Patient was intubated and remains on mechanical ventilation. Chest radiograph showed bilateral infiltrates or atelectasis. Sepsis was felt to be secondary to bilateral pneumonia. Head CT showed no evidence of hemorrhage. Subsequent MRI brain showed [id number] cortical ischemia bilaterally at the temporal and parietal lobes. Neurology feels that the findings likely secondary to hypoperfusion from shock on admission. EEG showed moderate-severe cerebral dysfunction. Patient was seen by pulmonary, infectious disease and neurology consultation. Patient was treated empirically for herpes encephalitis with acyclovir which was later discontinued. Patient underwent lumbar puncture which revealed cryptococcal antigen negative, no pleocytosis and no other abnormalities. Patient was treated with IV antibiotics of meropenem for sepsis which was later discontinued when the blood cultures were found to be negative. Sputum culture revealed Zosyn resistant pseudomonas and Escherichia coli. Therefore, Patient also received inhaled tobramycin for presumptive tracheobronchitis. Patient was unable to be weaned off the ventilator. Therefore, surgical consultation was obtained for tracheostomy and PEG placement which was completed on 08/17/16. Patient had elevated LFTs thought to be secondary to ischemic hepatitis from sepsis and hypotension. Abdominal ultrasound revealed cholelithiasis without cholecystitis. Other complications during hospital stay included hyperglycemia which resolved with adjustments in Lantus. Also, patient was noted to have a malar rash on the skin. Therefore, complement and double stranded DNA studies were completed and pending. -Acute respiratory failure with hypoxia -Pneumonia/trachbronchitis with septic shock, present on admission -Altered mental status with acute encephalopathy -Elevated LFTs due to hypoperfusion -Endotracheally intubated -Status post PEG tube and trach -Acute stroke Awaiting insurance prior authorization to go to [facility] New issue: Fever History Interval history: Patient seen and examined. Follow up on respiratory failure, with trach. Overnight uneventful. No cp, sob, n/v or severe headaches. Imaging, old records , testing, labs, nursing notes reviewed. Hospitalist Physical - Physical exam Narrative exam: GEN: Ill-appearing man with tracheostomy wake alert HEENT: NCAT, PERRL, EOMI, trach in place CVS: RRR, NORMAL S1S2 LUNGS/CHEST: NORMAL CHEST EXPANSION B, GOOD AIR ENTRY B ABD: SOFT, NTND, GBS, NO REBOUND OR GUARDING EXT/SKIN: Bilateral leg old skin graft, keloid skin left lower leg NEURO: CN 2-12 GROSSLY INTACT, doesnt follow commands - Constitutional Vitals: Temp Pulse Resp BP Pulse Ox 98.8 F 116 H 30 H 133/65 96 08/22/16 16:00 08/22/16 12:00 08/22/16 12:00 08/22/16 12:00 08/22/16 12:00 Results - Labs CBC & Chem 7: 08/22/16 04:40 08/22/16 04:40 Labs: Laboratory Last Values WBC 15.3 K/mm3 (4.5-11.0) H 08/22/16 04:40 RBC 4.16 M/mm3 (3.65-5.03) 08/22/16 04:40 Hgb 10.6 gm/dl (11.8-15.2) L 08/22/16 04:40 Hct 33.1 % (35.5-45.6) L 08/22/16 04:40 MCV 80 fl (84-94) L 08/22/16 04:40 MCH 26 pg (28-32) L 08/22/16 04:40 MCHC 32 % (32-34) 08/22/16 04:40 RDW 20.0 % (13.2-15.2) H 08/22/16 04:40 Plt Count 196 K/mm3 (140-440) 08/22/16 04:40 Lymph % (Auto) Surveyor'S Assistant 08/20/16 05:48 [place] % (Auto) Surveyor'S Assistant 08/20/16 05:48 Eos % (Auto) Surveyor'S Assistant 08/20/16 05:48 Baso % (Auto) Surveyor'S Assistant 08/20/16 05:48 Lymph # Surveyor'S Assistant 08/20/16 05:48 [place] # Surveyor'S Assistant 08/20/16 05:48 Eos # Surveyor'S Assistant 08/20/16 05:48 Baso # Surveyor'S Assistant 08/20/16 05:48 Add Manual Diff Complete 08/22/16 04:40 Total Counted 100 08/22/16 04:40 Seg Neutrophils % Surveyor'S Assistant 08/20/16 05:48 Seg Neuts % (Manual) 71.0 % (40.0-70.0) H 08/22/16 04:40 Band Neutrophils % 4.0 % 08/22/16 04:40 Lymphocytes % (Manual) 15.0 % (13.4-35.0) 08/22/16 04:40 Reactive Lymphs % (Man) 0 % 08/22/16 04:40 Monocytes % (Manual) 8.0 % (0.0-7.3) H 08/22/16 04:40 Eosinophils % (Manual) 2.0 % (0.0-4.3) 08/22/16 04:40 Basophils % (Manual) 0 % (0.0-1.8) 08/22/16 04:40 Metamyelocytes % 0 % 08/22/16 04:40 Myelocytes % 0 % 08/22/16 04:40 Promyelocytes % 0 % 08/22/16 04:40 Blast Cells % 0 % 08/22/16 04:40 Nucleated RBC % Not Reportable 08/22/16 04:40 Seg Neutrophils # Surveyor'S Assistant 08/20/16 05:48 Seg Neutrophils # Man 10.9 K/mm3 (1.8-7.7) H 08/22/16 04:40 Band Neutrophils # 0.6 K/mm3 08/22/16 04:40 Lymphocytes # (Manual) 2.3 K/mm3 (1.2-5.4) 08/22/16 04:40 Abs React Lymphs (Man) 0.0 K/mm3 08/22/16 04:40 Monocytes # (Manual) 1.2 K/mm3 (0.0-0.8) H 08/22/16 04:40 Eosinophils # (Manual) 0.3 K/mm3 (0.0-0.4) 08/22/16 04:40 Basophils # (Manual) 0.0 K/mm3 (0.0-0.1) 08/22/16 04:40 Metamyelocytes # 0.0 K/mm3 08/22/16 04:40 Myelocytes # 0.0 K/mm3 08/22/16 04:40 Promyelocytes # 0.0 K/mm3 08/22/16 04:40 Blast Cells # 0.0 K/mm3 08/22/16 04:40 WBC Morphology Not Reportable 08/22/16 04:40 Hypersegmented Neuts Not Reportable 08/22/16 04:40 Hyposegmented Neuts Not Reportable 08/22/16 04:40 Hypogranular Neuts Not Reportable 08/22/16 04:40 Smudge Cells Not Reportable 08/22/16 04:40 Toxic Granulation Not Reportable 08/22/16 04:40 Toxic Vacuolation Not Reportable 08/22/16 04:40 Dohle Bodies Not Reportable 08/22/16 04:40 Pelger-Huet Anomaly Not Reportable 08/22/16 04:40 Leta Rods Not Reportable 08/22/16 04:40 Platelet Estimate Consistent w auto 08/22/16 04:40 Clumped Platelets Not Reportable 08/22/16 04:40 Plt Clumps, EDTA Not Reportable 08/22/16 04:40 Large Platelets Not Reportable 08/22/16 04:40 Giant Platelets Not Reportable 08/22/16 04:40 Platelet Satelliting Not Reportable 08/22/16 04:40 Plt Morphology Comment Not Reportable 08/22/16 04:40 RBC Morphology Not Reportable 08/22/16 04:40 Dimorphic RBCs Not Reportable 08/22/16 04:40 Polychromasia Not Reportable 08/22/16 04:40 Hypochromasia Not Reportable 08/22/16 04:40 Poikilocytosis Not Reportable 08/22/16 04:40 Anisocytosis 1+ 08/22/16 04:40 Microcytosis Not Reportable 08/22/16 04:40 Macrocytosis Not Reportable 08/22/16 04:40 Spherocytes Not Reportable 08/22/16 04:40 Pappenheimer Bodies Not Reportable 08/22/16 04:40 Sickle Cells Not Reportable 08/22/16 04:40 Target Cells Not Reportable 08/22/16 04:40 Tear Drop Cells Not Reportable 08/22/16 04:40 Ovalocytes Not Reportable 08/22/16 04:40 Helmet Cells Not Reportable 08/22/16 04:40 Das-Ramah Bodies Not Reportable 08/22/16 04:40 Scenic Rings Not Reportable 08/22/16 04:40 [place] Cells Not Reportable 08/22/16 04:40 Bite Cells Not Reportable 08/22/16 04:40 Crenated Cell Not Reportable 08/22/16 04:40 Elliptocytes Not Reportable 08/22/16 04:40 Acanthocytes (Spur) Not Reportable 08/22/16 04:40 Rouleaux Not Reportable 08/22/16 04:40 Hemoglobin C Crystals Not Reportable 08/22/16 04:40 Schistocytes Rare 08/22/16 04:40 Malaria parasites Not Reportable 08/22/16 04:40 Reece Bodies Not Reportable 08/22/16 04:40 Hem Pathologist Commnt No 08/22/16 04:40 PT 17.2 Sec. (12.2-14.9) H 08/07/16 07:30 INR 1.41 (0.87-1.13) H 08/07/16 07:30 APTT 36.5 Sec. (24.2-36.6) 08/07/16 07:30 POC ABG pH 7.407 (7.35-7.45) 08/20/16 12:03 POC ABG pCO2 40.7 (35-45) 08/20/16 12:03 POC ABG pO2 81 (80-105) 08/20/16 12:03 POC ABG HCO3 25.6 08/20/16 12:03 POC ABG Total CO2 27 08/20/16 12:03 POC ABG O2 Sat 96 08/20/16 12:03 POC ABG Base Excess 1 08/20/16 12:03 VBG pH 7.447 (7.320-7.420) H 07/31/16 00:13 FiO2 28 % 08/20/16 12:03 Sodium 138 mmol/L (137-145) 08/22/16 04:40 Potassium 5.2 mmol/L (3.6-5.0) H 08/22/16 04:40 Chloride 98.7 mmol/L (98-107) 08/22/16 04:40 Carbon Dioxide 25 mmol/L (22-30) 08/22/16 04:40 Anion Gap 20 mmol/L 08/22/16 04:40 BUN 39 mg/dL (9-20) H 08/22/16 04:40 Creatinine 0.8 mg/dL (0.8-1.5) 08/22/16 04:40 Estimated GFR > 60 ml/min 08/22/16 04:40 BUN/Creatinine Ratio 48.75 % 08/22/16 04:40 Glucose 199 mg/dL (75-100) H 08/22/16 04:40 POC Glucose 310 (70-105) H 08/22/16 14:28 Lactic Acid 1.00 mmol/L (0.7-2.0) 07/31/16 00:13 Calcium 8.3 mg/dL (8.4-10.2) L 08/22/16 04:40 Total Bilirubin 0.20 mg/dL (0.1-1.2) 08/15/16 04:55 AST 87 units/L (5-40) H 08/15/16 04:55 ALT 77 units/L (7-56) H 08/15/16 04:55 Alkaline Phosphatase 1075 units/L (35-129) H 08/15/16 04:55 Ammonia 49.0 umol/L (25-60) 07/31/16 00:13 Total Creatine Kinase 865 units/L (55-170) H 07/31/16 08:39 CK-MB (CK-2) 5.9 ng/mL (0.0-4.0) H 07/31/16 08:39 CK-MB (CK-2) Rel Index 0.6 (0-4) 07/31/16 08:39 Troponin T 0.011 ng/mL (0.00-0.029) 07/31/16 08:39 Total Protein 6.2 g/dL (6.3-8.2) L 08/15/16 04:55 Albumin 2.2 g/dL (3.9-5) L 08/15/16 04:55 Albumin/Globulin Ratio 0.6 % 08/15/16 04:55 TSH 1.420 mlU/mL (0.270-4.200) 08/04/16 09:50 CSF Appearance Clear 08/04/16 11:54 CSF Color Colorless 08/04/16 11:54 CSF WBC 2 /mm3 (1-10) 08/04/16 11:54 CSF RBC 30 /mm3 (0-0) 08/04/16 11:54 CSF Seg Neutrophils 0 % (0-6) 08/04/16 11:54 CSF Lymphocytes % 66.7 % (40-80) 08/04/16 11:54 CSF Reactive Lymphs 0 % 08/04/16 11:54 CSF Monocytes % 33.3 % (15-45) 08/04/16 11:54 CSF Eosinophils % 0 % 08/04/16 11:54 CSF Basophils 0 % 08/04/16 11:54 CSF Pathologist Review C 08/04/16 11:54 CSF Glucose 90 mg/dL 08/04/16 11:54 CSF Total Protein 93 mg/dL 08/04/16 11:54 CSF VDRL Nonreactive (Nonreactive) 08/04/16 11:54 Salicylates < 0.3 mg/dL (2.8-20.0) L 07/31/16 00:02 Acetaminophen < 15.0 ug/mL (10.0-30.0) 07/31/16 00:02 Miscellaneous Test Flexitest 1 08/04/16 11:54 Blood Type O POSITIVE 07/30/16 23:40 MARK Antibody Screen Negative 07/30/16 23:40
[2016-08-22 18:23] LABS: Bacteria,Urine 1+ /HPF (Negative); Bilirubin,Urine NEG (Negative); Blood,Urine NEG (Negative); Ketones,Urine NEG (Negative); Leukocyte Esterase,Urine MOD (Negative); Mucus,Urine FEW /HPF; Nitrite,Urine NEG (Negative); Protein,Urine <15 mg/dL mg/dL (Negative); Urobilinogen,Urine < 2.0 mg/dL (<2.0)
[2016-08-23] MEDS: ATROVENT IH SCH ×3 (01:26→15:51)
[2016-08-23] MEDS: XOPENEX IH SCH ×3 (01:27→15:51)
[2016-08-23] MEDS: TYLENOL FEEDTUBE PRN (03:46)
[2016-08-23 06:06] LABS: Hematocrit 32.5 % (35.5-45.6); Hemoglobin 10.2 gm/dl (11.8-15.2); Mean Corpuscular HGB Conc 31 % (32-34); Mean Corpuscular Volume 80 fl (84-94); Platelet Count 180 K/mm3 (140-440); Red Blood Count 4.06 M/mm3 (3.65-5.03); Red Cell Distribution Width 19.6 % (13.2-15.2); White Blood Count 14.3 K/mm3 (4.5-11.0)
[2016-08-23 06:07] LABS: Mean Corpuscular Hemoglobin 25 pg (28-32)
[2016-08-23 06:34] LABS: Alanine Aminotransferase 206 units/L (7-56); Albumin 2.2 g/dL (3.9-5); Albumin/Globulin Ratio 0.5 %; Anion Gap 18 mmol/L; BUN/Creatinine Ratio 53.75; Blood Urea Nitrogen 43 mg/dL (9-20); Calcium 8.1 mg/dL (8.4-10.2); Carbon Dioxide 26 mmol/L (22-30); Chloride 98.8 mmol/L (98-107); Glucose 165 mg/dL (75-100); Sodium 138 mmol/L (137-145); Total Protein 6.6 g/dL (6.3-8.2)
[2016-08-23 06:46] LABS: Alkaline Phosphatase 2364 units/L (35-129)
[2016-08-23 06:57] LABS: Anisocytosis 1+; Basophils % (Manual) 0 % (0.0-1.8); Blastocytes % (Manual) 0 %; Diff Status Complete; Platelet Estimate Consistent w Auto; Schistocytes Rare
[2016-08-23] MEDS: PEPCID PO SCH (09:02)
[2016-08-23] MEDS: LOVENOX SUB-Q SCH (09:02)
[2016-08-23] MEDS: ASPIRIN PO SCH (09:02)
[2016-08-23] MEDS ORDERED: LEVEMIR SUB-Q SCH (10:00)
[2016-08-23 14:05] VITALS: BP 131/59
--- NOTE | 2016-08-23 15:22 | Discharge Summary ---
Providers - Providers Date of Admission: 07/31/16 02:27 Date of discharge: 08/23/16 Attending physician: ALYSSA LOUISE 08/01/16 10:19 Consult to Physician [CONS] Routine Consulting Provider: DAGOBERTO RAVI Reason For Exam: AMS Place consult to:: nutritionist public health neurology Notified:: Dr Ravi Was contact made?: Yes If yes, spoke with:: Dr Ravi Time called:: 09:40 08/02/16 10:43 Consult to PICC Line RN [CONS] Urgent Reason For Exam: needs iv access Type Line:: PICC 08/03/16 13:20 Consult to Physician [CONS] Routine Consulting Provider: JD NEGRON Reason For Exam: sepsis Place consult to:: Dr. Negron Notified:: yes Time called:: 13:20 08/05/16 06:24 Consult to Wound/ET Nurse [CONS] Routine Reason For Exam: wound eval left lower leg growth, black, intact 08/12/16 17:58 Consult to Physician [CONS] Routine Consulting Provider: COLIN DE JESUS I Reason For Exam: TRACH/PEG Place consult to:: Dr. De Jesus Notified:: yes Phone number called:: [phone] If yes, spoke with:: Dr. Barkley Time called:: 18:05 Primary care physician: I[employer] SECURITY SPECIALIST Hospitalization Condition: Stable Hospital course: Mr. Gray is a 76-year-old man with a history of diabetes mellitus type 2 and hypertension who was brought in to the ED from home after being with decreased level of consciousness by his son. Patient was intubated in the ER and admitted to the ICU with acute hypoxic respiratory failure, encephalopathy and septic shock. Patient was intubated and remains on mechanical ventilation. Chest radiograph showed bilateral infiltrates or atelectasis. Sepsis was felt to be secondary to bilateral pneumonia. Head CT showed no evidence of hemorrhage. Subsequent MRI brain showed [id number] cortical ischemia bilaterally at the temporal and parietal lobes. Neurology feels that the findings likely secondary to hypoperfusion from shock on admission. EEG showed moderate-severe cerebral dysfunction. Patient was seen by pulmonary, infectious disease and neurology consultation. Patient was treated empirically for herpes encephalitis with acyclovir which was later discontinued. Patient underwent lumbar puncture which revealed cryptococcal antigen negative, no pleocytosis and no other abnormalities. Patient was treated with IV antibiotics of meropenem for sepsis which was later discontinued when the blood cultures were found to be negative. Sputum culture revealed Zosyn resistant pseudomonas and Escherichia coli. Therefore, Patient also received inhaled tobramycin for presumptive tracheobronchitis. Patient was unable to be weaned off the ventilator. Therefore, surgical consultation was obtained for tracheostomy and PEG placement which was completed on 08/17/16. Patient had elevated LFTs thought to be secondary to ischemic hepatitis from sepsis and hypotension. Abdominal ultrasound revealed cholelithiasis without cholecystitis. Other complications during hospital stay included hyperglycemia which resolved with adjustments in Lantus. Also, patient was noted to have a malar rash on the skin. Therefore, complement and double stranded DNA studies were completed and pending. -Acute respiratory failure with hypoxia -Pneumonia/trachbronchitis with septic shock, present on admission -Altered mental status with acute encephalopathy -Elevated LFTs due to hypoperfusion -Endotracheally intubated -Status post PEG tube and trach -Acute stroke Awaiting insurance prior authorization to go to LT[facility] New issue: Fever==>Going to [facility] Disposition: [id number] MEDICARE CERT LT Time spent for discharge: 42 minutes Core Measure Documentation - Palliative Care Palliative Care/ Comfort Measures: Not Applicable - Core Measures Any of the following diagnoses?: none - VTE Discharge Requirements Deep Vein Thrombosis/Pulmonary Embolism Present on Admission: No Has pt received <5 days of overlap therapy or INR<2.0: No Anticoagulant overlap therapy prescribed at discharge: No Contraindication No Overlap Therapy order at DC: Not Indicated Exam - Physical Exam Narrative exam: GEN: Ill-appearing man with tracheostomy wake alert HEENT: NCAT, PERRL, EOMI, trach in place CVS: RRR, NORMAL S1S2 LUNGS/CHEST: NORMAL CHEST EXPANSION B, GOOD AIR ENTRY B ABD: SOFT, NTND, GBS, NO REBOUND OR GUARDING EXT/SKIN: Bilateral leg old skin graft, keloid skin left lower leg NEURO: CN 2-12 GROSSLY INTACT, doesnt follow commands - Constitutional Vitals: Temp Pulse Resp BP Pulse Ox 99.1 F 102 H 22 131/59 95 08/23/16 12:00 08/23/16 13:00 08/23/16 13:00 08/23/16 13:00 08/23/16 13:00 Plan Follow up with: BILLIE LEZAMA MD [Staff Physician] - 7 Days PRIMARY CARE, [Primary Care Provider] - 3-5 Days
[2016-08-23] MEDS ORDERED: ATROVENT IH SCH (16:00)
[2016-08-23] MEDS ORDERED: XOPENEX IH SCH (16:00)
--- NOTE | 2016-08-23 17:23 | Progress Note ---
Assessment and Plan Imp: 1. s/p Sepsis 2. ? Tracheobronchitis s/p ABX 3. Hypoglycemia on admit -> metabolic encephalopathy 4. Acute respiratory failure, hypoxia 5. s/p Trach/PEG 6. SIRS 7. Transaminitis Rec: 1. ID signed off; repeated blood, urine, and sputum cultures -> f/u; holding ABX unless further clinical changes occur or new culture data dictate otherwise 2. Hold off on Scopolamine; may thicken/dry out secretions; started chest PT and Xopenex/Atrovent nebs 3. PSV trials/T-piece as tolerated 4. TFs, supportive 5. Monitor neuro status; no sedation 6. Will need to trend LFTs; consider hepatobiliary imaging w/ US or CT 7. Lovenox for DVT PPx 8. Await LTAC 9. Complex decision-making Plan of care reviewed w/ family, they understand/agree Subjective Date of service: 08/23/16 Principal diagnosis: acute respiratory failure, encephalopathy Interval history: Developed fevers past 24-48 hours. No diarrhea. Eyes open, not following commands, moves all extremities, tolerating T-piece during daytime, PSV at night. Secretions better. Objective Vital Signs - 12hr 08/23/16 08/23/16 08/23/16 06:00 06:20 07:00 Temperature Pulse Rate 111 H 109 H Respiratory 21 19 Rate Blood Pressure 127/74 124/71 O2 Sat by Pulse 92 97 93 Oximetry 08/23/16 08/23/16 08/23/16 08:00 09:00 10:00 Temperature 99.0 F Pulse Rate 102 H 111 H 111 H Respiratory 19 22 23 Rate Blood Pressure 121/57 132/66 117/60 O2 Sat by Pulse 96 97 95 Oximetry 08/23/16 08/23/16 08/23/16 10:56 11:00 12:00 Temperature 99.1 F Pulse Rate 110 H 111 H 105 H Respiratory 24 14 Rate Blood Pressure 134/59 116/62 O2 Sat by Pulse 97 97 Oximetry 08/23/16 13:00 Temperature Pulse Rate 102 H Respiratory 22 Rate Blood Pressure 131/59 O2 Sat by Pulse 95 Oximetry Constitutional: no acute distress Eyes: non-icteric ENT: other (trached) Neck: supple Effort: normal Ascultation: Bilateral: clear Cardiovascular: other (tachy, RR; no mrg) Gastrointestinal: normoactive bowel sounds, soft, non-tender, non-distended Integumentary: normal Extremities: no cyanosis, no edema Neurologic: non-focal exam (moves all extremities, not following commands or tracking w/ eyes) Psychiatric: other (unable to assess) CBC and BMP: 08/23/16 05:15 08/23/16 05:15 ABG, PT/INR, D-dimer: ABG POC ABG pH 7.407 (7.35-7.45) 08/20/16 12:03 POC ABG pCO2 40.7 (35-45) 08/20/16 12:03 POC ABG pO2 81 (80-105) 08/20/16 12:03 POC ABG HCO3 25.6 08/20/16 12:03 POC ABG Total CO2 27 08/20/16 12:03 POC ABG O2 Sat 96 08/20/16 12:03 PT/INR, D-dimer PT 17.2 Sec. (12.2-14.9) H 08/07/16 07:30 INR 1.41 (0.87-1.13) H 08/07/16 07:30 Abnormal lab findings: Abnormal Labs 07/31/16 07/31/16 07/31/16 08:39 10:07 12:07 WBC RBC Hgb Hct MCV MCH MCHC RDW Plt Count Lymph % (Auto) [place] % (Auto) Lymph # [place] # Seg Neutrophils % Seg Neuts % (Manual) Lymphocytes % (Manual) Monocytes % (Manual) Nucleated RBC % Seg Neutrophils # Seg Neutrophils # Man Lymphocytes # (Manual) Monocytes # (Manual) PT INR APTT POC ABG pH POC ABG pCO2 POC ABG pO2 Sodium Potassium Chloride Carbon Dioxide BUN Creatinine Glucose POC Glucose 205 H 188 H Calcium AST ALT Alkaline Phosphatase Total Creatine Kinase 865 H CK-MB (CK-2) 5.9 H Total Protein Albumin Urine WBC (Auto) Complement C3 Complement C4 07/31/16 07/31/16 07/31/16 16:19 19:58 23:53 WBC RBC Hgb Hct MCV MCH MCHC RDW Plt Count Lymph % (Auto) [place] % (Auto) Lymph # [place] # Seg Neutrophils % Seg Neuts % (Manual) Lymphocytes % (Manual) Monocytes % (Manual) Nucleated RBC % Seg Neutrophils # Seg Neutrophils # Man Lymphocytes # (Manual) Monocytes # (Manual) PT INR APTT POC ABG pH POC ABG pCO2 POC ABG pO2 Sodium Potassium Chloride Carbon Dioxide BUN Creatinine Glucose POC Glucose 195 H 147 H 160 H Calcium AST ALT Alkaline Phosphatase Total Creatine Kinase CK-MB (CK-2) Total Protein Albumin Urine WBC (Auto) Complement C3 Complement C4 08/01/16 08/01/16 08/01/16 04:18 04:42 07:45 WBC 14.8 H RBC Hgb 10.7 L Hct 34.9 L MCV 82 L MCH 25 L MCHC 31 L RDW 19.1 H Plt Count Lymph % (Auto) [place] % (Auto) Lymph # [place] # Seg Neutrophils % Seg Neuts % (Manual) 80.0 H Lymphocytes % (Manual) 12.0 L Monocytes % (Manual) Nucleated RBC % Seg Neutrophils # Seg Neutrophils # Man 11.8 H Lymphocytes # (Manual) Monocytes # (Manual) PT INR APTT POC ABG pH POC ABG pCO2 33.4 L POC ABG pO2 66 L Sodium Potassium Chloride Carbon Dioxide BUN Creatinine Glucose POC Glucose 225 H Calcium AST ALT Alkaline Phosphatase Total Creatine Kinase CK-MB (CK-2) Total Protein Albumin Urine WBC (Auto) Complement C3 Complement C4 08/01/16 08/01/16 08/01/16 07:45 10:09 10:59 WBC RBC Hgb Hct MCV MCH MCHC RDW Plt Count Lymph % (Auto) [place] % (Auto) Lymph # [place] # Seg Neutrophils % Seg Neuts % (Manual) Lymphocytes % (Manual) Monocytes % (Manual) Nucleated RBC % Seg Neutrophils # Seg Neutrophils # Man Lymphocytes # (Manual) Monocytes # (Manual) PT INR APTT POC ABG pH POC ABG pCO2 POC ABG pO2 Sodium Potassium Chloride Carbon Dioxide BUN 29 H Creatinine Glucose 233 H POC Glucose 266 H 318 H Calcium 7.6 L AST ALT Alkaline Phosphatase Total Creatine Kinase CK-MB (CK-2) Total Protein Albumin Urine WBC (Auto) Complement C3 Complement C4 08/01/16 08/01/16 08/01/16 14:24 17:56 21:21 WBC RBC Hgb Hct MCV MCH MCHC RDW Plt Count Lymph % (Auto) [place] % (Auto) Lymph # [place] # Seg Neutrophils % Seg Neuts % (Manual) Lymphocytes % (Manual) Monocytes % (Manual) Nucleated RBC % Seg Neutrophils # Seg Neutrophils # Man Lymphocytes # (Manual) Monocytes # (Manual) PT INR APTT POC ABG pH POC ABG pCO2 POC ABG pO2 Sodium Potassium Chloride Carbon Dioxide BUN Creatinine Glucose POC Glucose 298 H 239 H 203 H Calcium AST ALT Alkaline Phosphatase Total Creatine Kinase CK-MB (CK-2) Total Protein Albumin Urine WBC (Auto) Complement C3 Complement C4 08/02/16 08/02/16 08/02/16 02:05 03:55 05:38 WBC RBC Hgb Hct MCV MCH MCHC RDW Plt Count Lymph % (Auto) [place] % (Auto) Lymph # [place] # Seg Neutrophils % Seg Neuts % (Manual) Lymphocytes % (Manual) Monocytes % (Manual) Nucleated RBC % Seg Neutrophils # Seg Neutrophils # Man Lymphocytes # (Manual) Monocytes # (Manual) PT INR APTT POC ABG pH 7.460 H POC ABG pCO2 31.2 L POC ABG pO2 71 L Sodium Potassium Chloride Carbon Dioxide BUN Creatinine Glucose POC Glucose 248 H 253 H Calcium AST ALT Alkaline Phosphatase Total Creatine Kinase CK-MB (CK-2) Total Protein Albumin Urine WBC (Auto) Complement C3 Complement C4 08/02/16 08/02/16 08/02/16 09:11 09:44 09:44 WBC RBC 3.62 L Hgb 9.4 L Hct 29.1 L MCV 80 L MCH 26 L MCHC RDW 18.7 H Plt Count Lymph % (Auto) [place] % (Auto) 9.2 H Lymph # Burke # 1.0 H Seg Neutrophils % 72.0 H Seg Neuts % (Manual) Lymphocytes % (Manual) Monocytes % (Manual) Nucleated RBC % Seg Neutrophils # Seg Neutrophils # Man Lymphocytes # (Manual) Monocytes # (Manual) PT INR APTT POC ABG pH POC ABG pCO2 POC ABG pO2 Sodium 135 L Potassium Chloride Carbon Dioxide 21 L BUN 42 H Creatinine Glucose 248 H POC Glucose 306 H Calcium 7.6 L AST ALT Alkaline Phosphatase Total Creatine Kinase CK-MB (CK-2) Total Protein Albumin Urine WBC (Auto) Complement C3 Complement C4 08/02/16 08/02/16 08/02/16 15:53 17:33 21:39 WBC RBC Hgb Hct MCV MCH MCHC RDW Plt Count Lymph % (Auto) [place] % (Auto) Lymph # [place] # Seg Neutrophils % Seg Neuts % (Manual) Lymphocytes % (Manual) Monocytes % (Manual) Nucleated RBC % Seg Neutrophils # Seg Neutrophils # Man Lymphocytes # (Manual) Monocytes # (Manual) PT INR APTT POC ABG pH POC ABG pCO2 POC ABG pO2 Sodium Potassium Chloride Carbon Dioxide BUN Creatinine Glucose POC Glucose 205 H 250 H 282 H Calcium AST ALT Alkaline Phosphatase Total Creatine Kinase CK-MB (CK-2) Total Protein Albumin Urine WBC (Auto) Complement C3 Complement C4 08/03/16 08/03/16 08/03/16 02:28 05:47 07:05 WBC RBC 3.32 L Hgb 8.4 L Hct 26.5 L MCV 80 L MCH 25 L MCHC RDW 18.7 H Plt Count 112 L Lymph % (Auto) 12.5 L [place] % (Auto) 10.2 H Lymph # 1.0 L [place] # Seg Neutrophils % 75.9 H Seg Neuts % (Manual) Lymphocytes % (Manual) Monocytes % (Manual) Nucleated RBC % Seg Neutrophils # Seg Neutrophils # Man Lymphocytes # (Manual) Monocytes # (Manual) PT INR APTT POC ABG pH POC ABG pCO2 POC ABG pO2 Sodium Potassium Chloride Carbon Dioxide BUN Creatinine Glucose POC Glucose 317 H 253 H Calcium AST ALT Alkaline Phosphatase Total Creatine Kinase CK-MB (CK-2) Total Protein Albumin Urine WBC (Auto) Complement C3 Complement C4 08/03/16 08/03/16 08/03/16 07:05 09:50 14:07 WBC RBC Hgb Hct MCV MCH MCHC RDW Plt Count Lymph % (Auto) [place] % (Auto) Lymph # [place] # Seg Neutrophils % Seg Neuts % (Manual) Lymphocytes % (Manual) Monocytes % (Manual) Nucleated RBC % Seg Neutrophils # Seg Neutrophils # Man Lymphocytes # (Manual) Monocytes # (Manual) PT INR APTT POC ABG pH POC ABG pCO2 POC ABG pO2 Sodium 132 L Potassium Chloride Carbon Dioxide 20 L BUN 42 H Creatinine Glucose 243 H POC Glucose 332 H 345 H Calcium 6.8 L AST ALT Alkaline Phosphatase Total Creatine Kinase CK-MB (CK-2) Total Protein Albumin Urine WBC (Auto) Complement C3 Complement C4 08/03/16 08/03/16 08/04/16 17:38 21:36 02:18 WBC RBC Hgb Hct MCV MCH MCHC RDW Plt Count Lymph % (Auto) [place] % (Auto) Lymph # [place] # Seg Neutrophils % Seg Neuts % (Manual) Lymphocytes % (Manual) Monocytes % (Manual) Nucleated RBC % Seg Neutrophils # Seg Neutrophils # Man Lymphocytes # (Manual) Monocytes # (Manual) PT INR APTT POC ABG pH POC ABG pCO2 POC ABG pO2 Sodium Potassium Chloride Carbon Dioxide BUN Creatinine Glucose POC Glucose 262 H 260 H 256 H Calcium AST ALT Alkaline Phosphatase Total Creatine Kinase CK-MB (CK-2) Total Protein Albumin Urine WBC (Auto) Complement C3 Complement C4 08/04/16 08/04/16 08/04/16 05:41 06:00 10:20 WBC RBC Hgb Hct MCV MCH MCHC RDW Plt Count Lymph % (Auto) [place] % (Auto) Lymph # [place] # Seg Neutrophils % Seg Neuts % (Manual) Lymphocytes % (Manual) Monocytes % (Manual) Nucleated RBC % Seg Neutrophils # Seg Neutrophils # Man Lymphocytes # (Manual) Monocytes # (Manual) PT INR APTT POC ABG pH POC ABG pCO2 POC ABG pO2 Sodium Potassium Chloride Carbon Dioxide BUN 34 H Creatinine 0.7 L Glucose 237 H POC Glucose 265 H 266 H Calcium 7.9 L D AST ALT Alkaline Phosphatase Total Creatine Kinase CK-MB (CK-2) Total Protein Albumin Urine WBC (Auto) Complement C3 Complement C4 08/04/16 08/04/16 08/04/16 14:20 17:31 21:52 WBC RBC Hgb Hct MCV MCH MCHC RDW Plt Count Lymph % (Auto) [place] % (Auto) Lymph # [place] # Seg Neutrophils % Seg Neuts % (Manual) Lymphocytes % (Manual) Monocytes % (Manual) Nucleated RBC % Seg Neutrophils # Seg Neutrophils # Man Lymphocytes # (Manual) Monocytes # (Manual) PT INR APTT POC ABG pH POC ABG pCO2 POC ABG pO2 Sodium Potassium Chloride Carbon Dioxide BUN Creatinine Glucose POC Glucose 302 H 337 H 340 H Calcium AST ALT Alkaline Phosphatase Total Creatine Kinase CK-MB (CK-2) Total Protein Albumin Urine WBC (Auto) Complement C3 Complement C4 08/05/16 08/05/16 08/05/16 01:43 05:00 05:00 WBC RBC Hgb 9.5 L Hct 30.1 L MCV 81 L MCH 26 L MCHC RDW 19.1 H Plt Count 112 L Lymph % (Auto) [place] % (Auto) Lymph # [place] # Seg Neutrophils % Seg Neuts % (Manual) Lymphocytes % (Manual) Monocytes % (Manual) Nucleated RBC % Seg Neutrophils # Seg Neutrophils # Man Lymphocytes # (Manual) Monocytes # (Manual) PT INR APTT POC ABG pH POC ABG pCO2 POC ABG pO2 Sodium Potassium Chloride Carbon Dioxide BUN 27 H Creatinine 0.7 L Glucose 212 H POC Glucose 247 H Calcium 8.3 L AST 92 H ALT 81 H Alkaline Phosphatase 629 H Total Creatine Kinase CK-MB (CK-2) Total Protein 5.9 L Albumin 2.2 L Urine WBC (Auto) Complement C3 Complement C4 08/05/16 08/05/16 08/05/16 05:14 05:19 10:12 WBC RBC Hgb Hct MCV MCH MCHC RDW Plt Count Lymph % (Auto) [place] % (Auto) Lymph # [place] # Seg Neutrophils % Seg Neuts % (Manual) Lymphocytes % (Manual) Monocytes % (Manual) Nucleated RBC % Seg Neutrophils # Seg Neutrophils # Man Lymphocytes # (Manual) Monocytes # (Manual) PT INR APTT POC ABG pH 7.469 H POC ABG pCO2 POC ABG pO2 109 H Sodium Potassium Chloride Carbon Dioxide BUN Creatinine Glucose POC Glucose 208 H 206 H Calcium AST ALT Alkaline Phosphatase Total Creatine Kinase CK-MB (CK-2) Total Protein Albumin Urine WBC (Auto) Complement C3 Complement C4 08/05/16 08/05/16 08/05/16 13:54 18:31 22:06 WBC RBC Hgb Hct MCV MCH MCHC RDW Plt Count Lymph % (Auto) [place] % (Auto) Lymph # [place] # Seg Neutrophils % Seg Neuts % (Manual) Lymphocytes % (Manual) Monocytes % (Manual) Nucleated RBC % Seg Neutrophils # Seg Neutrophils # Man Lymphocytes # (Manual) Monocytes # (Manual) PT INR APTT POC ABG pH POC ABG pCO2 POC ABG pO2 Sodium Potassium Chloride Carbon Dioxide BUN Creatinine Glucose POC Glucose 226 H 229 H 245 H Calcium AST ALT Alkaline Phosphatase Total Creatine Kinase CK-MB (CK-2) Total Protein Albumin Urine WBC (Auto) Complement C3 Complement C4 08/06/16 08/06/16 08/06/16 02:03 05:31 05:42 WBC RBC Hgb Hct MCV MCH MCHC RDW Plt Count Lymph % (Auto) [place] % (Auto) Lymph # [place] # Seg Neutrophils % Seg Neuts % (Manual) Lymphocytes % (Manual) Monocytes % (Manual) Nucleated RBC % Seg Neutrophils # Seg Neutrophils # Man Lymphocytes # (Manual) Monocytes # (Manual) PT INR APTT POC ABG pH POC ABG pCO2 POC ABG pO2 62 L Sodium Potassium Chloride Carbon Dioxide BUN Creatinine Glucose POC Glucose 237 H 205 H Calcium AST ALT Alkaline Phosphatase Total Creatine Kinase CK-MB (CK-2) Total Protein Albumin Urine WBC (Auto) Complement C3 Complement C4 08/06/16 08/06/16 08/06/16 09:36 11:30 14:23 WBC RBC Hgb Hct MCV MCH MCHC RDW Plt Count Lymph % (Auto) [place] % (Auto) Lymph # [place] # Seg Neutrophils % Seg Neuts % (Manual) Lymphocytes % (Manual) Monocytes % (Manual) Nucleated RBC % Seg Neutrophils # Seg Neutrophils # Man Lymphocytes # (Manual) Monocytes # (Manual) PT 18.9 H INR 1.59 H APTT 39.7 H POC ABG pH POC ABG pCO2 POC ABG pO2 Sodium Potassium Chloride Carbon Dioxide BUN Creatinine Glucose POC Glucose 279 H 264 H Calcium AST ALT Alkaline Phosphatase Total Creatine Kinase CK-MB (CK-2) Total Protein Albumin Urine WBC (Auto) Complement C3 Complement C4 08/06/16 08/07/16 08/07/16 18:07 03:01 05:18 WBC RBC Hgb Hct MCV MCH MCHC RDW Plt Count Lymph % (Auto) [place] % (Auto) Lymph # [place] # Seg Neutrophils % Seg Neuts % (Manual) Lymphocytes % (Manual) Monocytes % (Manual) Nucleated RBC % Seg Neutrophils # Seg Neutrophils # Man Lymphocytes # (Manual) Monocytes # (Manual) PT INR APTT POC ABG pH 7.459 H POC ABG pCO2 POC ABG pO2 Sodium Potassium Chloride Carbon Dioxide BUN Creatinine Glucose POC Glucose 176 H 172 H Calcium AST ALT Alkaline Phosphatase Total Creatine Kinase CK-MB (CK-2) Total Protein Albumin Urine WBC (Auto) Complement C3 Complement C4 08/07/16 08/07/16 08/07/16 05:32 07:30 07:30 WBC RBC 3.39 L Hgb 8.6 L Hct 27.2 L MCV 80 L MCH 25 L MCHC RDW 19.1 H Plt Count 136 L Lymph % (Auto) [place] % (Auto) Lymph # [place] # Seg Neutrophils % Seg Neuts % (Manual) 84.0 H Lymphocytes % (Manual) 4.0 L Monocytes % (Manual) 8.0 H Nucleated RBC % Seg Neutrophils # Seg Neutrophils # Man 8.2 H Lymphocytes # (Manual) 0.4 L Monocytes # (Manual) PT 17.2 H INR 1.41 H APTT POC ABG pH POC ABG pCO2 POC ABG pO2 Sodium Potassium Chloride Carbon Dioxide BUN Creatinine Glucose POC Glucose 204 H Calcium AST ALT Alkaline Phosphatase Total Creatine Kinase CK-MB (CK-2) Total Protein Albumin Urine WBC (Auto) Complement C3 Complement C4 08/07/16 08/07/16 08/07/16 07:30 10:03 14:35 WBC RBC Hgb Hct MCV MCH MCHC RDW Plt Count Lymph % (Auto) [place] % (Auto) Lymph # [place] # Seg Neutrophils % Seg Neuts % (Manual) Lymphocytes % (Manual) Monocytes % (Manual) Nucleated RBC % Seg Neutrophils # Seg Neutrophils # Man Lymphocytes # (Manual) Monocytes # (Manual) PT INR APTT POC ABG pH POC ABG pCO2 POC ABG pO2 Sodium Potassium Chloride Carbon Dioxide BUN 27 H Creatinine 0.7 L Glucose 201 H POC Glucose 233 H 255 H Calcium 7.9 L AST 73 H ALT 74 H Alkaline Phosphatase 595 H Total Creatine Kinase CK-MB (CK-2) Total Protein 5.1 L Albumin 1.8 L Urine WBC (Auto) Complement C3 Complement C4 08/07/16 08/07/16 08/08/16 16:09 22:01 01:27 WBC RBC Hgb Hct MCV MCH MCHC RDW Plt Count Lymph % (Auto) [place] % (Auto) Lymph # [place] # Seg Neutrophils % Seg Neuts % (Manual) Lymphocytes % (Manual) Monocytes % (Manual) Nucleated RBC % Seg Neutrophils # Seg Neutrophils # Man Lymphocytes # (Manual) Monocytes # (Manual) PT INR APTT POC ABG pH POC ABG pCO2 POC ABG pO2 Sodium Potassium Chloride Carbon Dioxide BUN Creatinine Glucose POC Glucose 259 H 255 H 252 H Calcium AST ALT Alkaline Phosphatase Total Creatine Kinase CK-MB (CK-2) Total Protein Albumin Urine WBC (Auto) Complement C3 Complement C4 08/08/16 08/08/16 08/08/16 05:13 06:23 07:40 WBC RBC 3.36 L Hgb 8.5 L Hct 27.1 L MCV 81 L MCH 25 L MCHC 31 L RDW 18.8 H Plt Count 129 L Lymph % (Auto) [place] % (Auto) Lymph # [place] # Seg Neutrophils % Seg Neuts % (Manual) Lymphocytes % (Manual) Monocytes % (Manual) Nucleated RBC % 2.0 H Seg Neutrophils # Seg Neutrophils # Man Lymphocytes # (Manual) Monocytes # (Manual) PT INR APTT POC ABG pH 7.460 H POC ABG pCO2 POC ABG pO2 74 L Sodium Potassium Chloride Carbon Dioxide BUN Creatinine Glucose POC Glucose 264 H Calcium AST ALT Alkaline Phosphatase Total Creatine Kinase CK-MB (CK-2) Total Protein Albumin Urine WBC (Auto) Complement C3 Complement C4 08/08/16 08/08/16 08/08/16 07:40 10:01 15:00 WBC RBC Hgb Hct MCV MCH MCHC RDW Plt Count Lymph % (Auto) [place] % (Auto) Lymph # [place] # Seg Neutrophils % Seg Neuts % (Manual) Lymphocytes % (Manual) Monocytes % (Manual) Nucleated RBC % Seg Neutrophils # Seg Neutrophils # Man Lymphocytes # (Manual) Monocytes # (Manual) PT INR APTT POC ABG pH POC ABG pCO2 POC ABG pO2 Sodium Potassium Chloride Carbon Dioxide BUN 26 H Creatinine 0.7 L Glucose 233 H POC Glucose 271 H 275 H Calcium 7.6 L AST 77 H ALT 71 H Alkaline Phosphatase 658 H Total Creatine Kinase CK-MB (CK-2) Total Protein 5.0 L Albumin 1.6 L Urine WBC (Auto) Complement C3 Complement C4 08/08/16 08/08/16 08/08/16 17:28 21:32 23:53 WBC RBC Hgb Hct MCV MCH MCHC RDW Plt Count Lymph % (Auto) [place] % (Auto) Lymph # [place] # Seg Neutrophils % Seg Neuts % (Manual) Lymphocytes % (Manual) Monocytes % (Manual) Nucleated RBC % Seg Neutrophils # Seg Neutrophils # Man Lymphocytes # (Manual) Monocytes # (Manual) PT INR APTT POC ABG pH POC ABG pCO2 POC ABG pO2 Sodium Potassium Chloride Carbon Dioxide BUN Creatinine Glucose POC Glucose 275 H 252 H 246 H Calcium AST ALT Alkaline Phosphatase Total Creatine Kinase CK-MB (CK-2) Total Protein Albumin Urine WBC (Auto) Complement C3 Complement C4 08/09/16 08/09/16 08/09/16 03:32 05:00 05:00 WBC RBC 3.34 L Hgb 8.3 L Hct 26.7 L MCV 80 L MCH 25 L MCHC 31 L RDW 18.5 H Plt Count Lymph % (Auto) [place] % (Auto) Lymph # [place] # Seg Neutrophils % Seg Neuts % (Manual) Lymphocytes % (Manual) Monocytes % (Manual) Nucleated RBC % Seg Neutrophils # Seg Neutrophils # Man Lymphocytes # (Manual) Monocytes # (Manual) PT INR APTT POC ABG pH POC ABG pCO2 POC ABG pO2 Sodium Potassium Chloride Carbon Dioxide BUN 25 H Creatinine 0.5 L Glucose 230 H POC Glucose 260 H Calcium 7.6 L AST ALT Alkaline Phosphatase Total Creatine Kinase CK-MB (CK-2) Total Protein Albumin Urine WBC (Auto) Complement C3 Complement C4 08/09/16 08/09/16 08/09/16 06:00 10:07 14:07 WBC RBC Hgb Hct MCV MCH MCHC RDW Plt Count Lymph % (Auto) [place] % (Auto) Lymph # [place] # Seg Neutrophils % Seg Neuts % (Manual) Lymphocytes % (Manual) Monocytes % (Manual) Nucleated RBC % Seg Neutrophils # Seg Neutrophils # Man Lymphocytes # (Manual) Monocytes # (Manual) PT INR APTT POC ABG pH 7.493 H POC ABG pCO2 POC ABG pO2 Sodium Potassium Chloride Carbon Dioxide BUN Creatinine Glucose POC Glucose 216 H 220 H Calcium AST ALT Alkaline Phosphatase Total Creatine Kinase CK-MB (CK-2) Total Protein Albumin Urine WBC (Auto) Complement C3 Complement C4 08/09/16 08/09/16 08/10/16 16:55 21:07 02:09 WBC RBC Hgb Hct MCV MCH MCHC RDW Plt Count Lymph % (Auto) [place] % (Auto) Lymph # [place] # Seg Neutrophils % Seg Neuts % (Manual) Lymphocytes % (Manual) Monocytes % (Manual) Nucleated RBC % Seg Neutrophils # Seg Neutrophils # Man Lymphocytes # (Manual) Monocytes # (Manual) PT INR APTT POC ABG pH POC ABG pCO2 POC ABG pO2 Sodium Potassium Chloride Carbon Dioxide BUN Creatinine Glucose POC Glucose 242 H 235 H 228 H Calcium AST ALT Alkaline Phosphatase Total Creatine Kinase CK-MB (CK-2) Total Protein Albumin Urine WBC (Auto) Complement C3 Complement C4 08/10/16 08/10/16 08/10/16 05:31 09:06 13:45 WBC RBC Hgb Hct MCV MCH MCHC RDW Plt Count Lymph % (Auto) [place] % (Auto) Lymph # [place] # Seg Neutrophils % Seg Neuts % (Manual) Lymphocytes % (Manual) Monocytes % (Manual) Nucleated RBC % Seg Neutrophils # Seg Neutrophils # Man Lymphocytes # (Manual) Monocytes # (Manual) PT INR APTT POC ABG pH POC ABG pCO2 POC ABG pO2 Sodium Potassium Chloride Carbon Dioxide BUN Creatinine Glucose POC Glucose 201 H 229 H 274 H Calcium AST ALT Alkaline Phosphatase Total Creatine Kinase CK-MB (CK-2) Total Protein Albumin Urine WBC (Auto) Complement C3 Complement C4 08/10/16 08/10/16 08/10/16 17:53 21:43 Unknown WBC RBC 3.42 L Hgb 8.6 L Hct 27.5 L MCV 80 L MCH 25 L MCHC RDW 19.1 H Plt Count Lymph % (Auto) [place] % (Auto) Lymph # [place] # Seg Neutrophils % Seg Neuts % (Manual) Lymphocytes % (Manual) Monocytes % (Manual) Nucleated RBC % Seg Neutrophils # Seg Neutrophils # Man Lymphocytes # (Manual) Monocytes # (Manual) PT INR APTT POC ABG pH POC ABG pCO2 POC ABG pO2 Sodium Potassium Chloride Carbon Dioxide BUN Creatinine Glucose POC Glucose 284 H 328 H Calcium AST ALT Alkaline Phosphatase Total Creatine Kinase CK-MB (CK-2) Total Protein Albumin Urine WBC (Auto) Complement C3 Complement C4 08/10/16 08/11/16 08/11/16 Unknown 01:37 05:39 WBC RBC Hgb Hct MCV MCH MCHC RDW Plt Count Lymph % (Auto) [place] % (Auto) Lymph # [place] # Seg Neutrophils % Seg Neuts % (Manual) Lymphocytes % (Manual) Monocytes % (Manual) Nucleated RBC % Seg Neutrophils # Seg Neutrophils # Man Lymphocytes # (Manual) Monocytes # (Manual) PT INR APTT POC ABG pH POC ABG pCO2 POC ABG pO2 Sodium Potassium Chloride Carbon Dioxide BUN 27 H Creatinine 0.6 L Glucose 211 H POC Glucose 340 H 323 H Calcium 7.8 L AST ALT Alkaline Phosphatase Total Creatine Kinase CK-MB (CK-2) Total Protein Albumin Urine WBC (Auto) Complement C3 Complement C4 08/11/16 08/11/16 08/11/16 09:58 15:22 17:41 WBC RBC Hgb Hct MCV MCH MCHC RDW Plt Count Lymph % (Auto) [place] % (Auto) Lymph # [place] # Seg Neutrophils % Seg Neuts % (Manual) Lymphocytes % (Manual) Monocytes % (Manual) Nucleated RBC % Seg Neutrophils # Seg Neutrophils # Man Lymphocytes # (Manual) Monocytes # (Manual) PT INR APTT POC ABG pH POC ABG pCO2 POC ABG pO2 Sodium Potassium Chloride Carbon Dioxide BUN Creatinine Glucose POC Glucose 295 H 210 H 164 H Calcium AST ALT Alkaline Phosphatase Total Creatine Kinase CK-MB (CK-2) Total Protein Albumin Urine WBC (Auto) Complement C3 Complement C4 08/11/16 08/12/16 08/12/16 21:53 01:56 05:15 WBC RBC Hgb Hct MCV MCH MCHC RDW Plt Count Lymph % (Auto) [place] % (Auto) Lymph # [place] # Seg Neutrophils % Seg Neuts % (Manual) Lymphocytes % (Manual) Monocytes % (Manual) Nucleated RBC % Seg Neutrophils # Seg Neutrophils # Man Lymphocytes # (Manual) Monocytes # (Manual) PT INR APTT POC ABG pH POC ABG pCO2 POC ABG pO2 Sodium Potassium Chloride Carbon Dioxide BUN Creatinine Glucose POC Glucose 171 H 205 H 156 H Calcium AST ALT Alkaline Phosphatase Total Creatine Kinase CK-MB (CK-2) Total Protein Albumin Urine WBC (Auto) Complement C3 Complement C4 08/12/16 08/12/16 08/12/16 10:10 14:33 17:53 WBC RBC Hgb Hct MCV MCH MCHC RDW Plt Count Lymph % (Auto) Burke % (Auto) Lymph # Burke # Seg Neutrophils % Seg Neuts % (Manual) Lymphocytes % (Manual) Monocytes % (Manual) Nucleated RBC % Seg Neutrophils # Seg Neutrophils # Man Lymphocytes # (Manual) Monocytes # (Manual) PT INR APTT POC ABG pH POC ABG pCO2 POC ABG pO2 Sodium Potassium Chloride Carbon Dioxide BUN Creatinine Glucose POC Glucose 224 H 245 H 259 H Calcium AST ALT Alkaline Phosphatase Total Creatine Kinase CK-MB (CK-2) Total Protein Albumin Urine WBC (Auto) Complement C3 Complement C4 08/12/16 08/13/16 08/13/16 21:56 04:00 04:02 WBC RBC Hgb Hct MCV MCH MCHC RDW Plt Count Lymph % (Auto) Burke % (Auto) Lymph # Burke # Seg Neutrophils % Seg Neuts % (Manual) Lymphocytes % (Manual) Monocytes % (Manual) Nucleated RBC % Seg Neutrophils # Seg Neutrophils # Man Lymphocytes # (Manual) Monocytes # (Manual) PT INR APTT POC ABG pH POC ABG pCO2 POC ABG pO2 Sodium 136 L Potassium Chloride 97.2 L Carbon Dioxide BUN 26 H Creatinine 0.6 L Glucose 185 H POC Glucose 229 H 202 H Calcium 7.3 L AST ALT Alkaline Phosphatase Total Creatine Kinase CK-MB (CK-2) Total Protein Albumin Urine WBC (Auto) Complement C3 Complement C4 08/13/16 08/13/16 08/13/16 06:47 09:53 13:40 WBC RBC Hgb Hct MCV MCH MCHC RDW Plt Count Lymph % (Auto) [place] % (Auto) Lymph # [place] # Seg Neutrophils % Seg Neuts % (Manual) Lymphocytes % (Manual) Monocytes % (Manual) Nucleated RBC % Seg Neutrophils # Seg Neutrophils # Man Lymphocytes # (Manual) Monocytes # (Manual) PT INR APTT POC ABG pH POC ABG pCO2 POC ABG pO2 Sodium Potassium Chloride Carbon Dioxide BUN Creatinine Glucose POC Glucose 191 H 221 H 225 H Calcium AST ALT Alkaline Phosphatase Total Creatine Kinase CK-MB (CK-2) Total Protein Albumin Urine WBC (Auto) Complement C3 Complement C4 08/13/16 08/13/16 08/13/16 17:07 21:09 Unknown WBC RBC 3.53 L Hgb 8.9 L Hct 28.4 L MCV 81 L MCH 25 L MCHC 31 L RDW 19.2 H Plt Count Lymph % (Auto) [place] % (Auto) Lymph # [place] # Seg Neutrophils % Seg Neuts % (Manual) Lymphocytes % (Manual) Monocytes % (Manual) Nucleated RBC % Seg Neutrophils # Seg Neutrophils # Man Lymphocytes # (Manual) Monocytes # (Manual) PT INR APTT POC ABG pH POC ABG pCO2 POC ABG pO2 Sodium Potassium Chloride Carbon Dioxide BUN Creatinine Glucose POC Glucose 232 H 166 H Calcium AST ALT Alkaline Phosphatase Total Creatine Kinase CK-MB (CK-2) Total Protein Albumin Urine WBC (Auto) Complement C3 Complement C4 08/14/16 08/14/16 08/14/16 01:42 05:16 08:57 WBC RBC Hgb Hct MCV MCH MCHC RDW Plt Count Lymph % (Auto) [place] % (Auto) Lymph # [place] # Seg Neutrophils % Seg Neuts % (Manual) Lymphocytes % (Manual) Monocytes % (Manual) Nucleated RBC % Seg Neutrophils # Seg Neutrophils # Man Lymphocytes # (Manual) Monocytes # (Manual) PT INR APTT POC ABG pH POC ABG pCO2 POC ABG pO2 Sodium Potassium Chloride Carbon Dioxide BUN Creatinine Glucose POC Glucose 172 H 182 H 233 H Calcium AST ALT Alkaline Phosphatase Total Creatine Kinase CK-MB (CK-2) Total Protein Albumin Urine WBC (Auto) Complement C3 Complement C4 08/14/16 08/14/16 08/14/16 11:30 14:09 17:48 WBC RBC Hgb Hct MCV MCH MCHC RDW Plt Count Lymph % (Auto) [place] % (Auto) Lymph # [place] # Seg Neutrophils % Seg Neuts % (Manual) Lymphocytes % (Manual) Monocytes % (Manual) Nucleated RBC % Seg Neutrophils # Seg Neutrophils # Man Lymphocytes # (Manual) Monocytes # (Manual) PT INR APTT POC ABG pH POC ABG pCO2 POC ABG pO2 Sodium 135 L Potassium Chloride 97.0 L Carbon Dioxide BUN 31 H Creatinine 0.7 L Glucose 271 H POC Glucose 302 H 260 H Calcium 7.4 L AST 86 H ALT 79 H Alkaline Phosphatase 1015 H Total Creatine Kinase CK-MB (CK-2) Total Protein 6.1 L Albumin 2.1 L Urine WBC (Auto) Complement C3 Complement C4 08/14/16 08/15/16 08/15/16 22:26 01:58 04:55 WBC RBC Hgb 9.1 L Hct 28.8 L MCV 79 L MCH 25 L MCHC RDW 19.1 H Plt Count Lymph % (Auto) [place] % (Auto) Lymph # [place] # Seg Neutrophils % Seg Neuts % (Manual) Lymphocytes % (Manual) Monocytes % (Manual) Nucleated RBC % Seg Neutrophils # Seg Neutrophils # Man Lymphocytes # (Manual) Monocytes # (Manual) PT INR APTT POC ABG pH POC ABG pCO2 POC ABG pO2 Sodium Potassium Chloride Carbon Dioxide BUN Creatinine Glucose POC Glucose 188 H 200 H Calcium AST ALT Alkaline Phosphatase Total Creatine Kinase CK-MB (CK-2) Total Protein Albumin Urine WBC (Auto) Complement C3 Complement C4 08/15/16 08/15/16 08/15/16 04:55 09:43 13:06 WBC RBC Hgb Hct MCV MCH MCHC RDW Plt Count Lymph % (Auto) [place] % (Auto) Lymph # [place] # Seg Neutrophils % Seg Neuts % (Manual) Lymphocytes % (Manual) Monocytes % (Manual) Nucleated RBC % Seg Neutrophils # Seg Neutrophils # Man Lymphocytes # (Manual) Monocytes # (Manual) PT INR APTT POC ABG pH POC ABG pCO2 POC ABG pO2 Sodium 133 L Potassium Chloride 96.2 L Carbon Dioxide BUN 35 H Creatinine 0.6 L Glucose 168 H POC Glucose 253 H 196 H Calcium 7.6 L AST 87 H ALT 77 H Alkaline Phosphatase 1075 H Total Creatine Kinase CK-MB (CK-2) Total Protein 6.2 L Albumin 2.2 L Urine WBC (Auto) Complement C3 Complement C4 08/15/16 08/15/16 08/16/16 17:13 21:27 02:00 WBC RBC Hgb Hct MCV MCH MCHC RDW Plt Count Lymph % (Auto) [place] % (Auto) Lymph # [place] # Seg Neutrophils % Seg Neuts % (Manual) Lymphocytes % (Manual) Monocytes % (Manual) Nucleated RBC % Seg Neutrophils # Seg Neutrophils # Man Lymphocytes # (Manual) Monocytes # (Manual) PT INR APTT POC ABG pH POC ABG pCO2 POC ABG pO2 Sodium Potassium Chloride Carbon Dioxide BUN Creatinine Glucose POC Glucose 152 H 119 H 171 H Calcium AST ALT Alkaline Phosphatase Total Creatine Kinase CK-MB (CK-2) Total Protein Albumin Urine WBC (Auto) Complement C3 Complement C4 08/16/16 08/16/16 08/16/16 05:29 06:00 06:00 WBC 11.2 H RBC Hgb 9.6 L Hct 30.8 L MCV 79 L MCH 25 L MCHC 31 L RDW 19.2 H Plt Count Lymph % (Auto) [place] % (Auto) Lymph # [place] # Seg Neutrophils % Seg Neuts % (Manual) 83.0 H Lymphocytes % (Manual) 12.0 L Monocytes % (Manual) Nucleated RBC % Seg Neutrophils # Seg Neutrophils # Man 9.3 H Lymphocytes # (Manual) Monocytes # (Manual) PT INR APTT POC ABG pH POC ABG pCO2 POC ABG pO2 Sodium Potassium Chloride Carbon Dioxide BUN 30 H Creatinine 0.6 L Glucose 136 H POC Glucose 164 H Calcium 7.5 L AST ALT Alkaline Phosphatase Total Creatine Kinase CK-MB (CK-2) Total Protein Albumin Urine WBC (Auto) Complement C3 Complement C4 08/16/16 08/16/16 08/16/16 09:31 13:27 17:28 WBC RBC Hgb Hct MCV MCH MCHC RDW Plt Count Lymph % (Auto) [place] % (Auto) Lymph # [place] # Seg Neutrophils % Seg Neuts % (Manual) Lymphocytes % (Manual) Monocytes % (Manual) Nucleated RBC % Seg Neutrophils # Seg Neutrophils # Man Lymphocytes # (Manual) Monocytes # (Manual) PT INR APTT POC ABG pH POC ABG pCO2 POC ABG pO2 Sodium Potassium Chloride Carbon Dioxide BUN Creatinine Glucose POC Glucose 270 H 217 H 227 H Calcium AST ALT Alkaline Phosphatase Total Creatine Kinase CK-MB (CK-2) Total Protein Albumin Urine WBC (Auto) Complement C3 Complement C4 08/16/16 08/17/16 08/17/16 21:32 05:50 09:55 WBC RBC Hgb Hct MCV MCH MCHC RDW Plt Count Lymph % (Auto) [place] % (Auto) Lymph # [place] # Seg Neutrophils % Seg Neuts % (Manual) Lymphocytes % (Manual) Monocytes % (Manual) Nucleated RBC % Seg Neutrophils # Seg Neutrophils # Man Lymphocytes # (Manual) Monocytes # (Manual) PT INR APTT POC ABG pH POC ABG pCO2 POC ABG pO2 Sodium Potassium Chloride Carbon Dioxide BUN Creatinine Glucose POC Glucose 186 H 131 H 170 H Calcium AST ALT Alkaline Phosphatase Total Creatine Kinase CK-MB (CK-2) Total Protein Albumin Urine WBC (Auto) Complement C3 Complement C4 08/17/16 08/17/16 08/18/16 17:21 21:56 02:02 WBC RBC Hgb Hct MCV MCH MCHC RDW Plt Count Lymph % (Auto) [place] % (Auto) Lymph # [place] # Seg Neutrophils % Seg Neuts % (Manual) Lymphocytes % (Manual) Monocytes % (Manual) Nucleated RBC % Seg Neutrophils # Seg Neutrophils # Man Lymphocytes # (Manual) Monocytes # (Manual) PT INR APTT POC ABG pH POC ABG pCO2 POC ABG pO2 Sodium Potassium Chloride Carbon Dioxide BUN Creatinine Glucose POC Glucose 190 H 207 H 170 H Calcium AST ALT Alkaline Phosphatase Total Creatine Kinase CK-MB (CK-2) Total Protein Albumin Urine WBC (Auto) Complement C3 Complement C4 08/18/16 08/18/16 08/18/16 05:22 10:16 14:19 WBC RBC Hgb Hct MCV MCH MCHC RDW Plt Count Lymph % (Auto) [place] % (Auto) Lymph # [place] # Seg Neutrophils % Seg Neuts % (Manual) Lymphocytes % (Manual) Monocytes % (Manual) Nucleated RBC % Seg Neutrophils # Seg Neutrophils # Man Lymphocytes # (Manual) Monocytes # (Manual) PT INR APTT POC ABG pH POC ABG pCO2 POC ABG pO2 Sodium Potassium Chloride Carbon Dioxide BUN Creatinine Glucose POC Glucose 173 H 200 H 215 H Calcium AST ALT Alkaline Phosphatase Total Creatine Kinase CK-MB (CK-2) Total Protein Albumin Urine WBC (Auto) Complement C3 Complement C4 08/18/16 08/18/16 08/18/16 16:00 16:00 18:40 WBC RBC Hgb Hct MCV MCH MCHC RDW Plt Count Lymph % (Auto) [place] % (Auto) Lymph # [place] # Seg Neutrophils % Seg Neuts % (Manual) Lymphocytes % (Manual) Monocytes % (Manual) Nucleated RBC % Seg Neutrophils # Seg Neutrophils # Man Lymphocytes # (Manual) Monocytes # (Manual) PT INR APTT POC ABG pH POC ABG pCO2 POC ABG pO2 Sodium Potassium Chloride Carbon Dioxide BUN Creatinine Glucose POC Glucose 245 H Calcium AST ALT Alkaline Phosphatase Total Creatine Kinase CK-MB (CK-2) Total Protein Albumin Urine WBC (Auto) Complement C3 232 H Complement C4 51 H 08/18/16 08/19/16 08/19/16 21:31 01:59 05:28 WBC RBC Hgb Hct MCV MCH MCHC RDW Plt Count Lymph % (Auto) [place] % (Auto) Lymph # [place] # Seg Neutrophils % Seg Neuts % (Manual) Lymphocytes % (Manual) Monocytes % (Manual) Nucleated RBC % Seg Neutrophils # Seg Neutrophils # Man Lymphocytes # (Manual) Monocytes # (Manual) PT INR APTT POC ABG pH POC ABG pCO2 POC ABG pO2 Sodium Potassium Chloride Carbon Dioxide BUN Creatinine Glucose POC Glucose 277 H 269 H 298 H Calcium AST ALT Alkaline Phosphatase Total Creatine Kinase CK-MB (CK-2) Total Protein Albumin Urine WBC (Auto) Complement C3 Complement C4 08/19/16 08/19/16 08/19/16 08:51 08:51 09:51 WBC 14.2 H RBC Hgb 10.1 L Hct 32.4 L MCV 80 L MCH 25 L MCHC 31 L RDW 19.6 H Plt Count Lymph % (Auto) [place] % (Auto) 13.2 H Lymph # Burke # 1.9 H Seg Neutrophils % Seg Neuts % (Manual) Lymphocytes % (Manual) Monocytes % (Manual) 10.0 H Nucleated RBC % Seg Neutrophils # 9.0 H Seg Neutrophils # Man 9.4 H Lymphocytes # (Manual) Monocytes # (Manual) 1.4 H PT INR APTT POC ABG pH POC ABG pCO2 POC ABG pO2 Sodium 136 L Potassium 5.2 H Chloride Carbon Dioxide 21 L BUN 29 H Creatinine Glucose 287 H POC Glucose 313 H Calcium 7.9 L AST ALT Alkaline Phosphatase Total Creatine Kinase CK-MB (CK-2) Total Protein Albumin Urine WBC (Auto) Complement C3 Complement C4 08/19/16 08/19/16 08/19/16 13:13 18:17 21:30 WBC RBC Hgb Hct MCV MCH MCHC RDW Plt Count Lymph % (Auto) [place] % (Auto) Lymph # [place] # Seg Neutrophils % Seg Neuts % (Manual) Lymphocytes % (Manual) Monocytes % (Manual) Nucleated RBC % Seg Neutrophils # Seg Neutrophils # Man Lymphocytes # (Manual) Monocytes # (Manual) PT INR APTT POC ABG pH POC ABG pCO2 POC ABG pO2 Sodium Potassium Chloride Carbon Dioxide BUN Creatinine Glucose POC Glucose 360 H 382 H 321 H Calcium AST ALT Alkaline Phosphatase Total Creatine Kinase CK-MB (CK-2) Total Protein Albumin Urine WBC (Auto) Complement C3 Complement C4 08/20/16 08/20/16 08/20/16 01:48 05:39 05:45 WBC RBC Hgb Hct MCV MCH MCHC RDW Plt Count Lymph % (Auto) [place] % (Auto) Lymph # [place] # Seg Neutrophils % Seg Neuts % (Manual) Lymphocytes % (Manual) Monocytes % (Manual) Nucleated RBC % Seg Neutrophils # Seg Neutrophils # Man Lymphocytes # (Manual) Monocytes # (Manual) PT INR APTT POC ABG pH POC ABG pCO2 POC ABG pO2 Sodium Potassium Chloride Carbon Dioxide BUN 31 H Creatinine 0.6 L Glucose 276 H POC Glucose 312 H 299 H Calcium AST ALT Alkaline Phosphatase Total Creatine Kinase CK-MB (CK-2) Total Protein Albumin Urine WBC (Auto) Complement C3 Complement C4 08/20/16 08/20/16 08/20/16 05:48 10:08 13:47 WBC 11.3 H RBC Hgb 9.6 L Hct 30.8 L MCV 81 L MCH 25 L MCHC 31 L RDW 19.6 H Plt Count Lymph % (Auto) [place] % (Auto) Lymph # [place] # Seg Neutrophils % Seg Neuts % (Manual) Lymphocytes % (Manual) 11.0 L Monocytes % (Manual) 8.0 H Nucleated RBC % Seg Neutrophils # Seg Neutrophils # Man Lymphocytes # (Manual) Monocytes # (Manual) 0.9 H PT INR APTT POC ABG pH POC ABG pCO2 POC ABG pO2 Sodium Potassium Chloride Carbon Dioxide BUN Creatinine Glucose POC Glucose 346 H 357 H Calcium AST ALT Alkaline Phosphatase Total Creatine Kinase CK-MB (CK-2) Total Protein Albumin Urine WBC (Auto) Complement C3 Complement C4 08/20/16 08/20/16 08/21/16 17:55 22:01 01:44 WBC RBC Hgb Hct MCV MCH MCHC RDW Plt Count Lymph % (Auto) [place] % (Auto) Lymph # [place] # Seg Neutrophils % Seg Neuts % (Manual) Lymphocytes % (Manual) Monocytes % (Manual) Nucleated RBC % Seg Neutrophils # Seg Neutrophils # Man Lymphocytes # (Manual) Monocytes # (Manual) PT INR APTT POC ABG pH POC ABG pCO2 POC ABG pO2 Sodium Potassium Chloride Carbon Dioxide BUN Creatinine Glucose POC Glucose 261 H 263 H 308 H Calcium AST ALT Alkaline Phosphatase Total Creatine Kinase CK-MB (CK-2) Total Protein Albumin Urine WBC (Auto) Complement C3 Complement C4 08/21/16 08/21/16 08/21/16 05:32 07:00 07:00 WBC 12.6 H RBC Hgb 10.1 L Hct 32.4 L MCV 81 L MCH 25 L MCHC 31 L RDW 19.3 H Plt Count Lymph % (Auto) [place] % (Auto) Lymph # [place] # Seg Neutrophils % Seg Neuts % (Manual) Lymphocytes % (Manual) Monocytes % (Manual) Nucleated RBC % Seg Neutrophils # Seg Neutrophils # Man 8.7 H Lymphocytes # (Manual) Monocytes # (Manual) 0.9 H PT INR APTT POC ABG pH POC ABG pCO2 POC ABG pO2 Sodium 135 L Potassium 5.3 H Chloride Carbon Dioxide BUN 34 H Creatinine 0.7 L Glucose 403 H POC Glucose 388 H Calcium 8.1 L AST ALT Alkaline Phosphatase Total Creatine Kinase CK-MB (CK-2) Total Protein Albumin Urine WBC (Auto) Complement C3 Complement C4 08/21/16 08/21/16 08/21/16 10:17 15:01 17:44 WBC RBC Hgb Hct MCV MCH MCHC RDW Plt Count Lymph % (Auto) [place] % (Auto) Lymph # [place] # Seg Neutrophils % Seg Neuts % (Manual) Lymphocytes % (Manual) Monocytes % (Manual) Nucleated RBC % Seg Neutrophils # Seg Neutrophils # Man Lymphocytes # (Manual) Monocytes # (Manual) PT INR APTT POC ABG pH POC ABG pCO2 POC ABG pO2 Sodium Potassium Chloride Carbon Dioxide BUN Creatinine Glucose POC Glucose 341 H 336 H 339 H Calcium AST ALT Alkaline Phosphatase Total Creatine Kinase CK-MB (CK-2) Total Protein Albumin Urine WBC (Auto) Complement C3 Complement C4 08/21/16 08/22/16 08/22/16 21:41 01:56 04:40 WBC 15.3 H RBC Hgb 10.6 L Hct 33.1 L MCV 80 L MCH 26 L MCHC RDW 20.0 H Plt Count Lymph % (Auto) [place] % (Auto) Lymph # [place] # Seg Neutrophils % Seg Neuts % (Manual) 71.0 H Lymphocytes % (Manual) Monocytes % (Manual) 8.0 H Nucleated RBC % Seg Neutrophils # Seg Neutrophils # Man 10.9 H Lymphocytes # (Manual) Monocytes # (Manual) 1.2 H PT INR APTT POC ABG pH POC ABG pCO2 POC ABG pO2 Sodium Potassium Chloride Carbon Dioxide BUN Creatinine Glucose POC Glucose 323 H 269 H Calcium AST ALT Alkaline Phosphatase Total Creatine Kinase CK-MB (CK-2) Total Protein Albumin Urine WBC (Auto) Complement C3 Complement C4 08/22/16 08/22/16 08/22/16 04:40 05:48 09:46 WBC RBC Hgb Hct MCV MCH MCHC RDW Plt Count Lymph % (Auto) [place] % (Auto) Lymph # [place] # Seg Neutrophils % Seg Neuts % (Manual) Lymphocytes % (Manual) Monocytes % (Manual) Nucleated RBC % Seg Neutrophils # Seg Neutrophils # Man Lymphocytes # (Manual) Monocytes # (Manual) PT INR APTT POC ABG pH POC ABG pCO2 POC ABG pO2 Sodium Potassium 5.2 H Chloride Carbon Dioxide BUN 39 H Creatinine Glucose 199 H POC Glucose 211 H 213 H Calcium 8.3 L AST ALT Alkaline Phosphatase Total Creatine Kinase CK-MB (CK-2) Total Protein Albumin Urine WBC (Auto) Complement C3 Complement C4 08/22/16 08/22/16 08/22/16 14:28 16:54 17:30 WBC RBC Hgb Hct MCV MCH MCHC RDW Plt Count Lymph % (Auto) [place] % (Auto) Lymph # [place] # Seg Neutrophils % Seg Neuts % (Manual) Lymphocytes % (Manual) Monocytes % (Manual) Nucleated RBC % Seg Neutrophils # Seg Neutrophils # Man Lymphocytes # (Manual) Monocytes # (Manual) PT INR APTT POC ABG pH POC ABG pCO2 POC ABG pO2 Sodium Potassium Chloride Carbon Dioxide BUN Creatinine Glucose POC Glucose 310 H 324 H Calcium AST ALT Alkaline Phosphatase Total Creatine Kinase CK-MB (CK-2) Total Protein Albumin Urine WBC (Auto) 13.0 H Complement C3 Complement C4 08/22/16 08/23/16 08/23/16 21:11 01:55 04:59 WBC RBC Hgb Hct MCV MCH MCHC RDW Plt Count Lymph % (Auto) [place] % (Auto) Lymph # [place] # Seg Neutrophils % Seg Neuts % (Manual) Lymphocytes % (Manual) Monocytes % (Manual) Nucleated RBC % Seg Neutrophils # Seg Neutrophils # Man Lymphocytes # (Manual) Monocytes # (Manual) PT INR APTT POC ABG pH POC ABG pCO2 POC ABG pO2 Sodium Potassium Chloride Carbon Dioxide BUN Creatinine Glucose POC Glucose 225 H 189 H 168 H Calcium AST ALT Alkaline Phosphatase Total Creatine Kinase CK-MB (CK-2) Total Protein Albumin Urine WBC (Auto) Complement C3 Complement C4 08/23/16 08/23/16 08/23/16 05:15 05:15 10:08 WBC 14.3 H RBC Hgb 10.2 L Hct 32.5 L MCV 80 L MCH 25 L MCHC 31 L RDW 19.6 H Plt Count Lymph % (Auto) [place] % (Auto) Lymph # [place] # Seg Neutrophils % Seg Neuts % (Manual) Lymphocytes % (Manual) Monocytes % (Manual) 13.0 H Nucleated RBC % Seg Neutrophils # Seg Neutrophils # Man 9.2 H Lymphocytes # (Manual) Monocytes # (Manual) 1.9 H PT INR APTT POC ABG pH POC ABG pCO2 POC ABG pO2 Sodium Potassium Chloride Carbon Dioxide BUN 43 H Creatinine Glucose 165 H POC Glucose 239 H Calcium 8.1 L AST 288 H ALT 206 H Alkaline Phosphatase 2364 H Total Creatine Kinase CK-MB (CK-2) Total Protein Albumin 2.2 L Urine WBC (Auto) Complement C3 Complement C4 Chest x-ray: report reviewed, image reviewed
== END 2016-08-23 13:45 | DRG 4 ==
LOC: ED 23:19 → CC1 07-31 02:27
PROVIDERS: ADMIT Internal Medicine; ATTEND Internal Medicine
PROC: 4A033R1 Measurement of Arterial Saturation, Peripheral, Percutaneous Approach (ICD-10-PCS; 2016-07-31)
PROC: 02HV33Z Insertion of Infusion Device into Superior Vena Cava, Percutaneous Approach (ICD-10-PCS; 2016-08-02)
PROC: 009U3ZX Drainage of Spinal Canal, Percutaneous Approach, Diagnostic (ICD-10-PCS; 2016-08-07)
PROC: B01B1ZZ Fluoroscopy of Spinal Cord using Low Osmolar Contrast (ICD-10-PCS; 2016-08-07)
PROC: 0BH17EZ Insertion of Endotracheal Airway into Trachea, Via Natural or Artificial Opening (ICD-10-PCS; principal; 2016-08-11)
PROC: 5A1955Z Respiratory Ventilation, Greater than 96 Consecutive Hours (ICD-10-PCS; principal; 2016-08-11)
PROC: 0B113F4 Bypass Trachea to Cutaneous with Tracheostomy Device, Percutaneous Approach (ICD-10-PCS; 2016-08-17)
PROC: 0DH63UZ Insertion of Feeding Device into Stomach, Percutaneous Approach (ICD-10-PCS; 2016-08-17)
DX: A41.9 Sepsis, unspecified organism (principal); J96.01 Acute respiratory failure with hypoxia; R65.21 Severe sepsis with septic shock; J18.9 Pneumonia, unspecified organism; B00.4 Herpesviral encephalitis; I63.9 Cerebral infarction, unspecified; G92 Toxic encephalopathy; E66.9 Obesity, unspecified; N40.0 Benign prostatic hyperplasia without lower urinary tract symptoms; E11.649 Type 2 diabetes mellitus with hypoglycemia without coma; K80.20 Calculus of gallbladder without cholecystitis without obstruction; I10 Essential (primary) hypertension; J40 Bronchitis, not specified as acute or chronic; E78.5 Hyperlipidemia, unspecified; Z82.49 Family history of ischemic heart disease and other diseases of the circulatory system; Z68.27 Body mass index [BMI] 27.0-27.9, adult; Z87.891 Personal history of nicotine dependence; I25.2 Old myocardial infarction; Z79.4 Long term (current) use of insulin
CPT/HCPCS: 36415; 36600; 62270; 70450; 70553; 71010; 72125; 74000; 76700; 77003; 80048; 80053; 80320; 81001; 82140; 82550; 82553; 82803; 82805; 82947; 82962; 84160; 84443; 84484; 85007; 85025; 85027; 85610; 85730; 86160; 86225; 86403; 86592; 86850; 86900; 86901; 87040; 87070; 87076; 87086; 87116; 87186; 87205; 89051; 93005; 93010; 94002; 94003; 94640; 94667; 94760; 95819; 96374; 96375; A9270-GY; A9577; G0480; J0133; J1650; J1815; J1818; J2001; J2060; J2185; J2250; J2370; J2543; J2704; J2997; J3010; J3260; J3370; J7030; J7040; J7050